=== PATIENT | male | born 1955 | race Two or more races ===

== ENCOUNTER 2018-07-05 02:54 | Inpatient (IN) | payer MEDICARE, MEDICAID ==
[2018-07-05] VITALS (23 sets, daily range): BP systolic 81–145; BP diastolic 48–67
[~2018-07-05] VITALS: Ht 165.1 cm; Wt 106.5 kg
[2018-07-05 03:37] LABS: Basophils # (auto) 0.1 uL; Eosinophils # (auto) 0.3 uL; Monocytes # (auto) 0.4 uL; Neutrophils # (auto) 3.3 uL; Nucleated Red Blood Cells % 0.1 %; White Blood Cell 5.9 10^3/uL (4.4-10.8)
[2018-07-05 03:39] LABS: Basophils % (auto) 1.3 % (0.0-2.0); Eosinophils % (auto) 4.8 % (0.0-7.0); Hematocrit 35.9 % (41.0-53.0); Hemoglobin 11.1 g/dL (13.5-17.5); Lymphocytes # (auto) 1.9 uL; Lymphocytes % (auto) 31.7 % (10.0-50.0); Mean Corpuscular Hgb Conc. 30.9 g/dL (32.0-36.0); Mean Corpuscular Volume 71.2 fL (80.0-100.0); Monocytes % (auto) 6.7 % (0.0-12.0); Neutrophils % (auto) 55.5 % (37.0-80.0); Platelet Count (auto) 179 10^3/uL (140-450); Red Blood Cells 5.04 10^6/uL (4.5-5.90); Red Cell Distribution Width 18.6 % (11.8-14.3)
[2018-07-05] MEDS ORDERED: LORazepam 2MG/ML-1ML VIAL ONE ×2 (03:41→06:26)
[2018-07-05 03:55] LABS: Albumin 3.7 g/dL (3.4-5.0); BUN/Creatinine Ratio 22.5; Calcium 9.2 mg/dL (8.5-10.1); Potassium 3.1 mmol/L (3.5-5.1)
[2018-07-05 03:56] LABS: Blood Alcohol < 3.0 mg/dL (0-5); INR 1.06 (0.9-1.15); Partial Thromboplastin Time 28.5 sec (23.78-33.04); Prothrombin Time 11.3 sec (9.27-12.13)
[2018-07-05 03:58] LABS: Bilirubin, Total 0.8 mg/dL (0.2-1.0); Total Protein 8.4 g/dL (6.4-8.2)
[2018-07-05] MEDS ORDERED: LORazepam 2MG/ML-1ML VIAL IV ONE ×2 (04:15→06:45)
[2018-07-05] MEDS ORDERED: HALOPERIDOL LACTATE 5 MG/ML INJ VIAL ONE (04:32)
[2018-07-05] MEDS ORDERED: diphenhdrAMINE HCL 50 MG/1 ML VL ONE (04:40)
[2018-07-05 04:43] LABS: Lactic Acid w/Reflex 9.1 mmol/L (0.4-2.0)
[2018-07-05] MEDS ORDERED: diphenhdrAMINE HCL 50 MG/1 ML VL IV ONE (04:45)
[2018-07-05] MEDS ORDERED: HALOPERIDOL LACTATE 5 MG/ML INJ VIAL IM ONE ×2 (04:45→05:45)
[2018-07-05 05:58] LABS: Urine Bacteria NONE SEEN /hpf (None Seen); Urine Blood Negative /uL (Negative); Urine Specific Gravity 1.015 (1.001-1.035); Urine WBC 1 /hpf (0 - 3)
[2018-07-05] MEDS ORDERED: LEVOFLOXACIN 750MG 150 ML IV ONE (06:15)
[2018-07-05] MEDS ORDERED: SODIUM BICARBONATE 8.4 % INJ 50ML VIAL IV ONE (06:15)
[2018-07-05] MEDS ORDERED: SODIUM CHLORIDE 0.9% 3,000 ML IV ONE (06:15)
[2018-07-05 06:21] LABS: Alcohol, Urine < 3.0 mg/dL (0-5); Amphetamine Screen, Urine NEGATIVE (NEGATIVE); Barbiturate Scree,Urine NEGATIVE (NEGATIVE); Benzodiazephine Screen, Urine NEGATIVE (NEGATIVE); Cannabinoid Screen, Urine NEGATIVE (NEGATIVE); Cocaine Screen, Urine NEGATIVE (NEGATIVE); Opiate Scree,Urine NEGATIVE (NEGATIVE); Phencyclidine Screen, Urine NEGATIVE (NEGATIVE)
[2018-07-05] MEDS ORDERED: SODIUM BICARBONATE 8.4% INJ 50ML SYRINGE ONE ×2 (06:26→06:27)
[2018-07-05] MEDS ORDERED: SUCCINYLCHOLINE CHLORIDE 20 MG/ML 10ML VIAL IV ONE (07:17)
[2018-07-05] MEDS ORDERED: ETOMIDATE (2MG/ML) 20ML VIAL IV ONE (07:18)
[2018-07-05] MEDS ORDERED: MIDAZOLAM DRIP 50 mg/50mL 50 ML IV ONE (07:18)
[2018-07-05] MEDS: ETOMIDATE (2MG/ML) 20ML VIAL IV ONE ×2 (07:24→08:05)
[2018-07-05] MEDS: SUCCINYLCHOLINE CHLORIDE 20 MG/ML 10ML VIAL IV ONE ×2 (07:24→08:05)
[2018-07-05] MEDS: MIDAZOLAM DRIP 50 mg/50mL 50 ML IV SCH ×3 (07:26→10:44)
[2018-07-05] MEDS ORDERED: PROPOFOL 100 ML IV ONE (07:32)
[2018-07-05] MEDS: PROPOFOL 100 ML IV SCH ×3 (07:36→10:44)
[2018-07-05] MEDS ORDERED: IOHEXOL 350 MG/ML 100ML IJ ONE (08:22)
[2018-07-05] MEDS ORDERED: DEXTROSE (50%) 50ML SYRG IV PRN (10:15)
[2018-07-05] MEDS ORDERED: VANCOMYCIN PER PHARMACY 0 MG IV SCH (10:15)
[2018-07-05] MEDS ORDERED: POTASSIUM CHL 20MEQ/100ML 100 ML IV ONE (10:15)
[2018-07-05] MEDS ORDERED: PIPERACILLIN-TAZOB 3.375GM 100 ML IV ONE (10:15)
[2018-07-05] MEDS ORDERED: MORPHINE SULFATE 4 MG/ML SYR/VIAL IV PRN (10:30)
[2018-07-05] MEDS ORDERED: ONDANSETRON HCL 4 MG/2 ML VIAL IV PRN (10:30)
[2018-07-05] MEDS ORDERED: NITROGLYCERIN 0.4 MG SL TAB SL PRN (10:30)
[2018-07-05 10:36] LABS: Albumin 2.9 g/dL (3.4-5.0); BUN/Creatinine Ratio 22.8; Bilirubin, Total 0.9 mg/dL (0.2-1.0); Calcium 8.3 mg/dL (8.5-10.1); Total Protein 6.4 g/dL (6.4-8.2)
[2018-07-05 10:49] LABS: Potassium 2.6 mmol/L (3.5-5.1)
[2018-07-05] MEDS: POTASSIUM CHL 20MEQ/100ML 100 ML IV SCH ×3 (10:54→15:47)
[2018-07-05] MEDS: InsuLIN REG 1unit/0.01ml Soln (100units/ml) SC SCH ×2 (12:00→18:17)
[2018-07-05] MEDS ORDERED: LACTULOSE 20Gm/30ML SOLN PR SCH (12:00)
[2018-07-05] MEDS: ENOXAPARIN SOD 40 MG/0.4 ML SYRINGE SC SCH (12:13)
[2018-07-05] MEDS: ALBUTEROL SULF 2.5 MG/0.5ML(0.5%) NEB SOLN NEB SCH ×2 (12:26→18:15)
[2018-07-05] MEDS: IPRATROPIUM BROM 0.5 MG/2.5ML INH SOL NEB SCH ×2 (12:26→18:15)
[2018-07-05] MEDS: ACCU-CHEK COMFORT CURVE STRIP VI SCH ×2 (12:37→18:17)
[2018-07-05] MEDS: VANCOMYCIN 750 MG in D5W 5% 250 ML IV SCH (13:44)
[2018-07-05 13:48] LABS: Lactic Acid w/Reflex 2.4 mmol/L (0.4-2.0)
[2018-07-05] MEDS ORDERED: LACTULOSE 20Gm/30ML SOLN ONE (13:55)
[2018-07-05] MEDS: LACTULOSE 20Gm/30ML SOLN PO SCH (18:17)
[2018-07-05] MEDS: PIPERACILLIN-TAZOB 3.375GM 100 ML IV SCH (18:23)
[2018-07-05] MEDS ORDERED: MECL-87 PO (22:52)
[2018-07-05] MEDS ORDERED: PANT40TA2 PO (22:52)
[2018-07-05] MEDS ORDERED: CARV3.1240 PO (22:52)
[2018-07-05] MEDS ORDERED: AMLO5TAB13 PO (22:52)
[2018-07-05] MEDS ORDERED: SIMV10TA84 PO (22:52)
[2018-07-05] MEDS ORDERED: FURO40TA PO (22:52)
[2018-07-05] MEDS ORDERED: LOSA-49 PO (22:52)
[2018-07-05] MEDS ORDERED: METF-371 PO (22:52)
[2018-07-05] MEDS ORDERED: GABA100C9 PO (22:52)
[2018-07-05] MEDS ORDERED: HYDR25TA4 PO (22:52)
[2018-07-06] VITALS (86 sets, daily range): BP systolic 90–152; BP diastolic 48–98
[2018-07-06] MEDS: IPRATROPIUM BROM 0.5 MG/2.5ML INH SOL NEB SCH ×4 (00:08→18:00)
[2018-07-06] MEDS: ALBUTEROL SULF 2.5 MG/0.5ML(0.5%) NEB SOLN NEB SCH ×4 (00:08→18:00)
[2018-07-06] MEDS: LACTULOSE 20Gm/30ML SOLN PO SCH ×5 (00:29→23:50)
[2018-07-06] MEDS: PIPERACILLIN-TAZOB 3.375GM 100 ML IV SCH ×5 (00:29→23:49)
[2018-07-06] MEDS: ACCU-CHEK COMFORT CURVE STRIP VI SCH ×5 (00:30→23:49)
[2018-07-06] MEDS: VANCOMYCIN 750 MG in D5W 5% 250 ML IV SCH ×2 (00:50→14:13)
[2018-07-06] MEDS: MIDAZOLAM DRIP 50 mg/50mL 50 ML IV SCH ×5 (00:50→21:30)
[2018-07-06] MEDS: PROPOFOL 100 ML IV SCH ×2 (00:51→17:17)
[2018-07-06 04:46] LABS: Basophils # (auto) 0 uL; Basophils % (auto) 0.9 % (0.0-2.0); Eosinophils # (auto) 0.3 uL; Monocytes # (auto) 0.4 uL; Neutrophils # (auto) 2.4 uL; Neutrophils % (auto) 56.9 % (37.0-80.0); White Blood Cell 4.2 10^3/uL (4.4-10.8)
[2018-07-06 04:48] LABS: Hematocrit 27.9 % (41.0-53.0); Hemoglobin 9.1 g/dL (13.5-17.5); Lymphocytes % (auto) 24.4 % (10.0-50.0); Mean Corpuscular Hemoglobin 23.3 pg (28.0-32.0); Mean Corpuscular Hgb Conc. 32.7 g/dL (32.0-36.0); Mean Corpuscular Volume 71.4 fL (80.0-100.0); Monocytes % (auto) 10.8 % (0.0-12.0); Platelet Count (auto) 110 10^3/uL (140-450); Red Blood Cells 3.91 10^6/uL (4.5-5.90); Red Cell Distribution Width 18.6 % (11.8-14.3)
[2018-07-06 05:24] LABS: Anion Gap 8 (5-15); Blood Urea Nitrogen 17 mg/dL (7-18); Carbon Dioxide 28 mmol/L (21-32); Chloride 109 mmol/L (98-107); Glucose 170 mg/dL (74-106); Sodium 145 mmol/L (136-145)
[2018-07-06 05:25] LABS: Alanine Aminotransferase 26 U/L (16-61); Albumin 2.7 g/dL (3.4-5.0); Alkaline Phosphatase 56 U/L (45-117); Aspartate Aminotransferase 22 U/L (15-37); BUN/Creatinine Ratio 16.7; Calcium 7.4 mg/dL (8.5-10.1); GFR African American 95 mL/min; GFR Non-African American 79 mL/min; Total Protein 6.2 g/dL (6.4-8.2)
[2018-07-06 05:27] LABS: Potassium 2.8 mmol/L (3.5-5.1)
[2018-07-06] MEDS: InsuLIN REG 1unit/0.01ml Soln (100units/ml) SC SCH ×5 (05:54→23:49)
[2018-07-06] MEDS: POTASSIUM CHL 20MEQ/100ML 100 ML IV SCH ×4 (07:41→11:17)
[2018-07-06] MEDS: ENOXAPARIN SOD 40 MG/0.4 ML SYRINGE SC SCH (09:40)
[2018-07-06] MEDS ORDERED: THIAMINE INJ 100 MG, MULTIPLE VITAMIN 10 ML, FOLIC ACID 1 MG, MAGNESIUM SULF SDV 50% 8 ... IV SCH ×5 (12:15)
[2018-07-07] VITALS (104 sets, daily range): BP systolic 93–175; BP diastolic 48–100
[2018-07-07] MEDS: IPRATROPIUM BROM 0.5 MG/2.5ML INH SOL NEB SCH ×4 (00:18→18:52)
[2018-07-07] MEDS: ALBUTEROL SULF 2.5 MG/0.5ML(0.5%) NEB SOLN NEB SCH ×4 (00:18→18:52)
[2018-07-07] MEDS: PROPOFOL 100 ML IV SCH ×3 (00:40→21:53)
[2018-07-07 00:46] LABS: Folate (Folic Acid) 14.92 ng/mL (5.38-24)
[2018-07-07] MEDS: VANCOMYCIN 750 MG in D5W 5% 250 ML IV SCH (01:35)
[2018-07-07 03:52] LABS: Eosinophils # (auto) 0.4 uL; Lymphocytes # (auto) 1.4 uL; Mean Corpuscular Hemoglobin 22.3 pg (28.0-32.0); Monocytes # (auto) 0.4 uL; Platelet Count (auto) 110 10^3/uL (140-450)
[2018-07-07 03:55] LABS: Basophils # (auto) 0 uL; Basophils % (auto) 1.1 % (0.0-2.0); Eosinophils % (auto) 9.2 % (0.0-7.0); Hematocrit 28.9 % (41.0-53.0); Lymphocytes % (auto) 33.6 % (10.0-50.0); Mean Corpuscular Volume 71.9 fL (80.0-100.0); Monocytes % (auto) 9.4 % (0.0-12.0); Neutrophils % (auto) 46.7 % (37.0-80.0); Red Blood Cells 4.02 10^6/uL (4.5-5.90); Red Cell Distribution Width 18.6 % (11.8-14.3); White Blood Cell 4.3 10^3/uL (4.4-10.8)
[2018-07-07 03:56] LABS: Mean Corpuscular Hgb Conc. 31.1 g/dL (32.0-36.0)
[2018-07-07 04:09] LABS: Albumin 2.5 g/dL (3.4-5.0); Calcium 7.2 mg/dL (8.5-10.1)
[2018-07-07 04:13] LABS: Magnesium 1.8 mg/dL (1.6-2.6)
[2018-07-07 04:15] LABS: Bilirubin, Total 0.9 mg/dL (0.2-1.0); Total Protein 6.2 g/dL (6.4-8.2)
[2018-07-07] MEDS: PIPERACILLIN-TAZOB 3.375GM 100 ML IV SCH ×3 (06:34→18:20)
[2018-07-07] MEDS: InsuLIN REG 1unit/0.01ml Soln (100units/ml) SC SCH ×4 (06:35→23:43)
[2018-07-07] MEDS: ACCU-CHEK COMFORT CURVE STRIP VI SCH ×4 (06:35→23:42)
[2018-07-07] MEDS: LACTULOSE 20Gm/30ML SOLN PO SCH ×4 (06:37→23:53)
[2018-07-07] MEDS ORDERED: POTASSIUM CHL 20MEQ/100ML 100 ML IV ONE (07:30)
[2018-07-07] MEDS: ENOXAPARIN SOD 40 MG/0.4 ML SYRINGE SC SCH (09:42)
[2018-07-07] MEDS: FOLIC ACID 1 MG in D5W 5% 50 ML IV SCH (09:42)
[2018-07-07] MEDS: THIAMINE 100mg/ml INJ (200mg/2ml VIAL) IV SCH (09:42)
[2018-07-07] MEDS ORDERED: POTASSIUM CHL 20MEQ/100ML 100 ML IV SCH ×3 (10:00→15:00)
[2018-07-07] MEDS: VANCOMYCIN 1GM/250ML 250 ML IV SCH ×2 (11:45→17:06)
[2018-07-07] MEDS: MIDAZOLAM DRIP 50 mg/50mL 50 ML IV SCH ×2 (14:29→21:52)
[2018-07-08] VITALS (103 sets, daily range): BP systolic 97–140; BP diastolic 47–82
[2018-07-08] MEDS: IPRATROPIUM BROM 0.5 MG/2.5ML INH SOL NEB SCH ×4 (00:05→18:33)
[2018-07-08] MEDS: ALBUTEROL SULF 2.5 MG/0.5ML(0.5%) NEB SOLN NEB SCH ×4 (00:05→18:33)
[2018-07-08] MEDS: VANCOMYCIN 1GM/250ML 250 ML IV SCH ×3 (01:50→17:48)
[2018-07-08 04:12] LABS: Eosinophils # (auto) 0.5 uL; Neutrophils # (auto) 2.6 uL; Nucleated Red Blood Cells % 0.1 %; Platelet Count (auto) 114 10^3/uL (140-450); White Blood Cell 4.5 10^3/uL (4.4-10.8)
[2018-07-08 04:14] LABS: Basophils # (auto) 0 uL; Eosinophils % (auto) 11.1 % (0.0-7.0); Hematocrit 28.2 % (41.0-53.0); Hemoglobin 8.9 g/dL (13.5-17.5); Lymphocytes % (auto) 22.4 % (10.0-50.0); Mean Corpuscular Hgb Conc. 31.6 g/dL (32.0-36.0); Mean Corpuscular Volume 72.4 fL (80.0-100.0); Monocytes # (auto) 0.4 uL; Monocytes % (auto) 8.1 % (0.0-12.0); Neutrophils % (auto) 57.4 % (37.0-80.0); Red Cell Distribution Width 18.8 % (11.8-14.3)
[2018-07-08 04:16] LABS: Mean Corpuscular Hemoglobin 23.1 pg (28.0-32.0)
[2018-07-08 04:22] LABS: Albumin 2.4 g/dL (3.4-5.0); BUN/Creatinine Ratio 9.2; Calcium 7.1 mg/dL (8.5-10.1); Potassium 3.7 mmol/L (3.5-5.1)
[2018-07-08 04:25] LABS: Bilirubin, Total 0.7 mg/dL (0.2-1.0); Total Protein 6.1 g/dL (6.4-8.2)
[2018-07-08] MEDS: PROPOFOL 100 ML IV SCH ×2 (05:07→17:26)
[2018-07-08] MEDS: ACCU-CHEK COMFORT CURVE STRIP VI SCH ×3 (05:27→17:58)
[2018-07-08] MEDS: PIPERACILLIN-TAZOB 3.375GM 100 ML IV SCH ×5 (05:30→23:54)
[2018-07-08] MEDS: InsuLIN REG 1unit/0.01ml Soln (100units/ml) SC SCH ×3 (05:30→17:58)
[2018-07-08] MEDS: LACTULOSE 20Gm/30ML SOLN PO SCH (06:00)
[2018-07-08] MEDS: DEXMEDETOMIDINE HCL 400 MCG in D5W 5% 96 ML IV SCH ×2 (09:15→21:10)
[2018-07-08] MEDS: THIAMINE 100mg/ml INJ (200mg/2ml VIAL) IV SCH (10:11)
[2018-07-08] MEDS: FOLIC ACID 1 MG in D5W 5% 50 ML IV SCH (10:11)
[2018-07-08] MEDS: ENOXAPARIN SOD 40 MG/0.4 ML SYRINGE SC SCH (10:12)
[2018-07-08] MEDS ORDERED: Glucerna 1.2 Cal 1Liter BOTTLE GT SCH (13:15)
[2018-07-09] VITALS (99 sets, daily range): BP systolic 94–148; BP diastolic 49–102
[2018-07-09] MEDS: InsuLIN REG 1unit/0.01ml Soln (100units/ml) SC SCH ×5 (00:28→23:48)
[2018-07-09] MEDS: ACCU-CHEK COMFORT CURVE STRIP VI SCH ×5 (00:28→23:45)
[2018-07-09] MEDS: IPRATROPIUM BROM 0.5 MG/2.5ML INH SOL NEB SCH ×4 (00:32→19:07)
[2018-07-09] MEDS: ALBUTEROL SULF 2.5 MG/0.5ML(0.5%) NEB SOLN NEB SCH ×4 (00:32→19:07)
[2018-07-09] MEDS: PROPOFOL 100 ML IV SCH ×4 (00:56→19:51)
[2018-07-09 01:04] LABS: Basophils # (auto) 0 uL; Basophils % (auto) 0.9 % (0.0-2.0); Eosinophils # (auto) 0.6 uL; Eosinophils % (auto) 11.6 % (0.0-7.0); Hematocrit 30.3 % (41.0-53.0); Hemoglobin 9.3 g/dL (13.5-17.5); Lymphocytes # (auto) 1.2 uL; Lymphocytes % (auto) 23.9 % (10.0-50.0); Mean Corpuscular Hemoglobin 22.4 pg (28.0-32.0); Mean Corpuscular Hgb Conc. 30.7 g/dL (32.0-36.0); Mean Corpuscular Volume 72.8 fL (80.0-100.0); Monocytes # (auto) 0.4 uL; Monocytes % (auto) 8.7 % (0.0-12.0); Neutrophils # (auto) 2.7 uL; Neutrophils % (auto) 54.9 % (37.0-80.0); Nucleated Red Blood Cells % 0.1 %; Platelet Count (auto) 112 10^3/uL (140-450); Red Blood Cells 4.16 10^6/uL (4.5-5.90); Red Cell Distribution Width 18.6 % (11.8-14.3); White Blood Cell 4.8 10^3/uL (4.4-10.8)
[2018-07-09 01:19] LABS: Albumin 2.6 g/dL (3.4-5.0); Potassium 3.9 mmol/L (3.5-5.1)
[2018-07-09 01:22] LABS: BUN/Creatinine Ratio 7.7
[2018-07-09 01:24] LABS: Bilirubin, Total 0.7 mg/dL (0.2-1.0); Total Protein 6.2 g/dL (6.4-8.2)
[2018-07-09] MEDS: VANCOMYCIN 1GM/250ML 250 ML IV SCH ×3 (02:29→17:43)
[2018-07-09] MEDS: PIPERACILLIN-TAZOB 3.375GM 100 ML IV SCH ×4 (06:23→23:44)
[2018-07-09] MEDS: THIAMINE 100mg/ml INJ (200mg/2ml VIAL) IV SCH (09:16)
[2018-07-09] MEDS: ENOXAPARIN SOD 40 MG/0.4 ML SYRINGE SC SCH (09:16)
[2018-07-09] MEDS: FOLIC ACID 1 MG in D5W 5% 50 ML IV SCH (09:30)
[2018-07-09] MEDS: MIDAZOLAM DRIP 50 mg/50mL 50 ML IV SCH ×3 (10:12→23:44)
[2018-07-09] MEDS: LACTULOSE 20Gm/30ML SOLN PO SCH ×3 (15:01→23:45)
[2018-07-09] MEDS: DEXMEDETOMIDINE HCL 400 MCG in D5W 5% 96 ML IV SCH (20:39)
[2018-07-10] VITALS (102 sets, daily range): BP systolic 91–127; BP diastolic 44–77
[2018-07-10] MEDS: IPRATROPIUM BROM 0.5 MG/2.5ML INH SOL NEB SCH ×4 (00:32→18:42)
[2018-07-10] MEDS: ALBUTEROL SULF 2.5 MG/0.5ML(0.5%) NEB SOLN NEB SCH ×4 (00:32→18:42)
[2018-07-10] MEDS: PROPOFOL 100 ML IV SCH ×3 (01:33→11:25)
[2018-07-10] MEDS: VANCOMYCIN 1GM/250ML 250 ML IV SCH ×3 (01:33→18:00)
[2018-07-10] MEDS: MORPHINE SULFATE 4 MG/ML SYR/VIAL IV PRN ×2 (05:25→20:08)
[2018-07-10 05:27] LABS: Basophils # (auto) 0.1 uL; Eosinophils # (auto) 0.5 uL; Hemoglobin 9.1 g/dL (13.5-17.5); Monocytes # (auto) 0.4 uL; Neutrophils # (auto) 2.4 uL; Nucleated Red Blood Cells % 0.2 %
[2018-07-10 05:31] LABS: Basophils % (auto) 1.3 % (0.0-2.0); Eosinophils % (auto) 12.4 % (0.0-7.0); Hematocrit 28.1 % (41.0-53.0); Lymphocytes # (auto) 0.9 uL; Lymphocytes % (auto) 20.6 % (10.0-50.0); Mean Corpuscular Hemoglobin 23.3 pg (28.0-32.0); Mean Corpuscular Hgb Conc. 32.2 g/dL (32.0-36.0); Mean Corpuscular Volume 72.3 fL (80.0-100.0); Monocytes % (auto) 9.6 % (0.0-12.0); Neutrophils % (auto) 56.1 % (37.0-80.0); Platelet Count (auto) 130 10^3/uL (140-450); Red Blood Cells 3.89 10^6/uL (4.5-5.90); Red Cell Distribution Width 19.1 % (11.8-14.3); White Blood Cell 4.3 10^3/uL (4.4-10.8)
[2018-07-10 05:43] LABS: Albumin 2.5 g/dL (3.4-5.0); BUN/Creatinine Ratio 8.2; Calcium 7.6 mg/dL (8.5-10.1); Potassium 3.7 mmol/L (3.5-5.1)
[2018-07-10] MEDS: ACCU-CHEK COMFORT CURVE STRIP VI SCH ×4 (05:43→23:40)
[2018-07-10] MEDS: LACTULOSE 20Gm/30ML SOLN PO SCH ×4 (05:43→23:39)
[2018-07-10] MEDS: PIPERACILLIN-TAZOB 3.375GM 100 ML IV SCH ×4 (05:47→23:39)
[2018-07-10] MEDS: InsuLIN REG 1unit/0.01ml Soln (100units/ml) SC SCH ×4 (05:47→23:40)
[2018-07-10 05:50] LABS: Bilirubin, Total 0.6 mg/dL (0.2-1.0); Total Protein 6.5 g/dL (6.4-8.2)
[2018-07-10] MEDS: DEXMEDETOMIDINE HCL 400 MCG in D5W 5% 96 ML IV SCH ×2 (09:57→19:39)
[2018-07-10] MEDS: THIAMINE 100mg/ml INJ (200mg/2ml VIAL) IV SCH (10:03)
[2018-07-10] MEDS: ENOXAPARIN SOD 40 MG/0.4 ML SYRINGE SC SCH (10:22)
[2018-07-10] MEDS: FOLIC ACID 1 MG in D5W 5% 50 ML IV SCH (11:27)
[2018-07-11] VITALS (99 sets, daily range): BP systolic 93–169; BP diastolic 48–97
[2018-07-11] MEDS: IPRATROPIUM BROM 0.5 MG/2.5ML INH SOL NEB SCH ×4 (00:45→18:50)
[2018-07-11] MEDS: ALBUTEROL SULF 2.5 MG/0.5ML(0.5%) NEB SOLN NEB SCH ×4 (00:45→18:50)
[2018-07-11] MEDS: PROPOFOL 100 ML IV SCH ×3 (01:15→23:35)
[2018-07-11] MEDS: VANCOMYCIN 1,250 MG in D5W 5% 250 ML IV SCH ×2 (02:00→14:19)
[2018-07-11 04:23] LABS: Eosinophils # (auto) 0.5 uL; Hemoglobin 9.1 g/dL (13.5-17.5); Mean Corpuscular Volume 72.3 fL (80.0-100.0); Monocytes # (auto) 0.4 uL; Neutrophils # (auto) 1.9 uL
[2018-07-11 04:25] LABS: Basophils # (auto) 0 uL; Basophils % (auto) 1.2 % (0.0-2.0); Eosinophils % (auto) 13.1 % (0.0-7.0); Hematocrit 28.7 % (41.0-53.0); Lymphocytes # (auto) 1.1 uL; Lymphocytes % (auto) 28.6 % (10.0-50.0); Mean Corpuscular Hgb Conc. 31.7 g/dL (32.0-36.0); Monocytes % (auto) 10.1 % (0.0-12.0); Nucleated Red Blood Cells % 0.2 %; Platelet Count (auto) 125 10^3/uL (140-450); Red Blood Cells 3.97 10^6/uL (4.5-5.90)
[2018-07-11 04:31] LABS: Mean Corpuscular Hemoglobin 23.3 pg (28.0-32.0)
[2018-07-11 04:36] LABS: Potassium 3.6 mmol/L (3.5-5.1)
[2018-07-11 04:37] LABS: Albumin 2.4 g/dL (3.4-5.0); BUN/Creatinine Ratio 10.5; Calcium 7.6 mg/dL (8.5-10.1)
[2018-07-11 04:38] LABS: Bilirubin, Total 0.6 mg/dL (0.2-1.0); Total Protein 6.5 g/dL (6.4-8.2)
[2018-07-11] MEDS: LACTULOSE 20Gm/30ML SOLN PO SCH ×3 (05:35→17:40)
[2018-07-11] MEDS: MORPHINE SULFATE 4 MG/ML SYR/VIAL IV PRN ×3 (05:35→21:35)
[2018-07-11] MEDS: ACCU-CHEK COMFORT CURVE STRIP VI SCH ×3 (05:35→17:53)
[2018-07-11] MEDS: PIPERACILLIN-TAZOB 3.375GM 100 ML IV SCH ×3 (05:35→17:40)
[2018-07-11] MEDS: InsuLIN REG 1unit/0.01ml Soln (100units/ml) SC SCH ×3 (05:42→17:57)
[2018-07-11] MEDS: DEXMEDETOMIDINE HCL 400 MCG in D5W 5% 96 ML IV SCH (06:37)
[2018-07-11] MEDS: MIDAZOLAM DRIP 50 mg/50mL 50 ML IV SCH (10:12)
[2018-07-11] MEDS ORDERED: IOHEXOL 350 MG/ML 100ML IJ ONE (10:39)
[2018-07-11] MEDS: THIAMINE 100mg/ml INJ (200mg/2ml VIAL) IV SCH (11:27)
[2018-07-11] MEDS: FOLIC ACID 1 MG in D5W 5% 50 ML IV SCH (11:27)
[2018-07-11] MEDS: ENOXAPARIN SOD 40 MG/0.4 ML SYRINGE SC SCH (11:27)
[2018-07-11] MEDS ORDERED: FLEET ENEMA(ADULT) 135 ML PR ONE (12:45)
[2018-07-12] VITALS (99 sets, daily range): BP systolic 92–174; BP diastolic 40–114
[2018-07-12] MEDS: ALBUTEROL SULF 2.5 MG/0.5ML(0.5%) NEB SOLN NEB SCH ×4 (00:23→23:41)
[2018-07-12] MEDS: IPRATROPIUM BROM 0.5 MG/2.5ML INH SOL NEB SCH ×4 (00:23→23:41)
[2018-07-12 00:36] LABS: Basophils # (auto) 0.1 uL; Basophils % (auto) 1.3 % (0.0-2.0); Eosinophils # (auto) 0.6 uL; Hemoglobin 8.9 g/dL (13.5-17.5); Mean Corpuscular Volume 72.2 fL (80.0-100.0); Monocytes # (auto) 0.4 uL
[2018-07-12] MEDS: PIPERACILLIN-TAZOB 3.375GM 100 ML IV SCH ×5 (00:36→23:45)
[2018-07-12] MEDS: LACTULOSE 20Gm/30ML SOLN PO SCH ×3 (00:37→21:47)
[2018-07-12 00:38] LABS: Eosinophils % (auto) 12.2 % (0.0-7.0); Hematocrit 28.4 % (41.0-53.0); Lymphocytes # (auto) 0.9 uL; Lymphocytes % (auto) 19.6 % (10.0-50.0); Mean Corpuscular Hgb Conc. 31.4 g/dL (32.0-36.0); Monocytes % (auto) 8.2 % (0.0-12.0); Neutrophils # (auto) 2.8 uL; Neutrophils % (auto) 58.7 % (37.0-80.0); Nucleated Red Blood Cells % 0.1 %; Platelet Count (auto) 126 10^3/uL (140-450); Red Blood Cells 3.94 10^6/uL (4.5-5.90); Red Cell Distribution Width 19.3 % (11.8-14.3); White Blood Cell 4.8 10^3/uL (4.4-10.8)
[2018-07-12 00:39] LABS: Mean Corpuscular Hemoglobin 22.9 pg (28.0-32.0)
[2018-07-12 00:55] LABS: Albumin 2.4 g/dL (3.4-5.0); BUN/Creatinine Ratio 10.3; Calcium 7.4 mg/dL (8.5-10.1); Potassium 3.5 mmol/L (3.5-5.1)
[2018-07-12 00:58] LABS: Bilirubin, Total 0.6 mg/dL (0.2-1.0); Total Protein 6.3 g/dL (6.4-8.2)
[2018-07-12] MEDS: PROPOFOL 100 ML IV SCH ×6 (01:58→23:45)
[2018-07-12] MEDS: VANCOMYCIN 1,250 MG in D5W 5% 250 ML IV SCH ×2 (01:58→18:16)
[2018-07-12] MEDS: DEXMEDETOMIDINE HCL 400 MCG in D5W 5% 96 ML IV SCH (04:27)
[2018-07-12] MEDS: ACCU-CHEK COMFORT CURVE STRIP VI SCH ×5 (06:19→23:45)
[2018-07-12] MEDS: InsuLIN REG 1unit/0.01ml Soln (100units/ml) SC SCH ×4 (06:20→18:28)
[2018-07-12] MEDS: MIDAZOLAM DRIP 50 mg/50mL 50 ML IV SCH (10:12)
[2018-07-12] MEDS: PANTOPRAZOLE 40 MG/10 ML VIAL IV SCH (10:52)
[2018-07-12] MEDS: THIAMINE 100mg/ml INJ (200mg/2ml VIAL) IV SCH (10:52)
[2018-07-12] MEDS: ENOXAPARIN SOD 40 MG/0.4 ML SYRINGE SC SCH (10:53)
[2018-07-12] MEDS ORDERED: HALOPERIDOL LACTATE 5 MG/ML INJ VIAL IM PRN (11:00)
[2018-07-12] MEDS: FOLIC ACID 1 MG in D5W 5% 50 ML IV SCH (15:38)
[2018-07-12] MEDS: SIMETHICONE 40 MG/0.6 ML ORAL DROP PO SCH ×3 (15:47→21:48)
[2018-07-12] MEDS: methylPREDNISolone SOD SUCC 125 MG/2 ML VL IV SCH ×2 (15:47→21:48)
[2018-07-12] MEDS: MORPHINE SULFATE 4 MG/ML SYR/VIAL IV PRN (19:43)
[2018-07-13] VITALS (48 sets, daily range): BP systolic 105–141; BP diastolic 46–83
[2018-07-13] MEDS: InsuLIN REG 1unit/0.01ml Soln (100units/ml) SC SCH ×5 (00:01→23:48)
[2018-07-13] MEDS: VANCOMYCIN 1,250 MG in D5W 5% 250 ML IV SCH ×2 (05:08→18:25)
[2018-07-13] MEDS: PIPERACILLIN-TAZOB 3.375GM 100 ML IV SCH ×4 (05:49→23:48)
[2018-07-13] MEDS: methylPREDNISolone SOD SUCC 125 MG/2 ML VL IV SCH ×3 (05:50→22:12)
[2018-07-13] MEDS: SIMETHICONE 40 MG/0.6 ML ORAL DROP PO SCH ×4 (05:51→22:12)
[2018-07-13] MEDS: ACCU-CHEK COMFORT CURVE STRIP VI SCH ×4 (05:51→23:48)
[2018-07-13 06:07] LABS: Basophils # (auto) 0 uL; Eosinophils # (auto) 0 uL; Eosinophils % (auto) 0.1 % (0.0-7.0); Hemoglobin 9.1 g/dL (13.5-17.5); Lymphocytes # (auto) 0.5 uL; Monocytes # (auto) 0.1 uL; Neutrophils # (auto) 2.6 uL; White Blood Cell 3.2 10^3/uL (4.4-10.8)
[2018-07-13 06:11] LABS: Basophils % (auto) 0.4 % (0.0-2.0); Hematocrit 28.3 % (41.0-53.0); Lymphocytes % (auto) 15.4 % (10.0-50.0); Mean Corpuscular Hemoglobin 23.2 pg (28.0-32.0); Mean Corpuscular Hgb Conc. 32.1 g/dL (32.0-36.0); Mean Corpuscular Volume 72.4 fL (80.0-100.0); Monocytes % (auto) 2.1 % (0.0-12.0); Nucleated Red Blood Cells % 0.3 %; Platelet Count (auto) 127 10^3/uL (140-450); Red Blood Cells 3.91 10^6/uL (4.5-5.90); Red Cell Distribution Width 19.2 % (11.8-14.3)
[2018-07-13 06:26] LABS: Albumin 2.5 g/dL (3.4-5.0); BUN/Creatinine Ratio 12.4; Calcium 7.7 mg/dL (8.5-10.1); Potassium 3.9 mmol/L (3.5-5.1)
[2018-07-13 06:29] LABS: Bilirubin, Total 0.6 mg/dL (0.2-1.0); Total Protein 6.8 g/dL (6.4-8.2)
[2018-07-13] MEDS: IPRATROPIUM BROM 0.5 MG/2.5ML INH SOL NEB SCH ×3 (07:15→18:56)
[2018-07-13] MEDS: ALBUTEROL SULF 2.5 MG/0.5ML(0.5%) NEB SOLN NEB SCH ×3 (07:16→18:56)
[2018-07-13] MEDS: PROPOFOL 100 ML IV SCH ×3 (08:57→18:07)
[2018-07-13] MEDS: MIDAZOLAM DRIP 50 mg/50mL 50 ML IV SCH (10:12)
[2018-07-13] MEDS: PANTOPRAZOLE 40 MG/10 ML VIAL IV SCH (11:35)
[2018-07-13] MEDS: THIAMINE 100mg/ml INJ (200mg/2ml VIAL) IV SCH (11:35)
[2018-07-13] MEDS: ENOXAPARIN SOD 40 MG/0.4 ML SYRINGE SC SCH (11:35)
[2018-07-13] MEDS: FOLIC ACID 1 MG in D5W 5% 50 ML IV SCH (11:35)
[2018-07-13] MEDS: LACTULOSE 20Gm/30ML SOLN PO SCH ×2 (11:35→22:00)
[2018-07-13] MEDS: DEXMEDETOMIDINE HCL 400 MCG in D5W 5% 96 ML IV SCH (12:30)
[2018-07-13] MEDS: MORPHINE SULFATE 4 MG/ML SYR/VIAL IV PRN (20:52)
[2018-07-13] MEDS: HALOPERIDOL LACTATE 5 MG/ML INJ VIAL IM SCH (22:00)
[2018-07-14] VITALS (23 sets, daily range): BP systolic 109–151; BP diastolic 54–85
[2018-07-14] MEDS: IPRATROPIUM BROM 0.5 MG/2.5ML INH SOL NEB SCH ×4 (00:39→19:08)
[2018-07-14] MEDS: ALBUTEROL SULF 2.5 MG/0.5ML(0.5%) NEB SOLN NEB SCH ×4 (00:39→19:08)
[2018-07-14] MEDS: VANCOMYCIN 1,250 MG in D5W 5% 250 ML IV SCH ×2 (04:41→16:59)
[2018-07-14] MEDS: ACCU-CHEK COMFORT CURVE STRIP VI SCH ×3 (05:33→18:00)
[2018-07-14] MEDS: methylPREDNISolone SOD SUCC 125 MG/2 ML VL IV SCH ×3 (05:33→21:44)
[2018-07-14] MEDS: PIPERACILLIN-TAZOB 3.375GM 100 ML IV SCH ×3 (05:33→19:48)
[2018-07-14] MEDS: SIMETHICONE 40 MG/0.6 ML ORAL DROP PO SCH ×4 (05:33→21:45)
[2018-07-14] MEDS: InsuLIN REG 1unit/0.01ml Soln (100units/ml) SC SCH ×3 (05:36→18:00)
[2018-07-14 06:43] LABS: Basophils # (auto) 0 uL; Eosinophils # (auto) 0 uL; Hematocrit 27.6 % (41.0-53.0); Hemoglobin 8.8 g/dL (13.5-17.5); Lymphocytes # (auto) 0.4 uL; Mean Corpuscular Hemoglobin 23.2 pg (28.0-32.0); Monocytes # (auto) 0.1 uL; Neutrophils # (auto) 3.8 uL
[2018-07-14 06:45] LABS: Basophils % (auto) 0.3 % (0.0-2.0); Lymphocytes % (auto) 9.8 % (10.0-50.0); Mean Corpuscular Hgb Conc. 31.9 g/dL (32.0-36.0); Mean Corpuscular Volume 72.6 fL (80.0-100.0); Monocytes % (auto) 2.4 % (0.0-12.0); Neutrophils % (auto) 87.5 % (37.0-80.0); Nucleated Red Blood Cells % 0.1 %; Platelet Count (auto) 106 10^3/uL (140-450); Red Cell Distribution Width 19.5 % (11.8-14.3); White Blood Cell 4.3 10^3/uL (4.4-10.8)
[2018-07-14] MEDS: DEXMEDETOMIDINE HCL 400 MCG in D5W 5% 96 ML IV SCH (06:51)
[2018-07-14 06:53] LABS: Albumin 2.6 g/dL (3.4-5.0); BUN/Creatinine Ratio 16.2; Calcium 7.6 mg/dL (8.5-10.1)
[2018-07-14 07:02] LABS: Bilirubin, Total 0.7 mg/dL (0.2-1.0); Total Protein 6.8 g/dL (6.4-8.2)
[2018-07-14] MEDS: HALOPERIDOL LACTATE 5 MG/ML INJ VIAL IM SCH ×2 (10:00→21:35)
[2018-07-14] MEDS: MIDAZOLAM DRIP 50 mg/50mL 50 ML IV SCH (10:12)
[2018-07-14] MEDS: LACTULOSE 20Gm/30ML SOLN PO SCH ×2 (10:35→21:44)
[2018-07-14] MEDS: THIAMINE 100mg/ml INJ (200mg/2ml VIAL) IV SCH (10:37)
[2018-07-14] MEDS: PANTOPRAZOLE 40 MG/10 ML VIAL IV SCH (10:38)
[2018-07-14] MEDS: ENOXAPARIN SOD 40 MG/0.4 ML SYRINGE SC SCH (10:39)
[2018-07-14] MEDS: FOLIC ACID 1 MG in D5W 5% 50 ML IV SCH (10:39)
[2018-07-14] MEDS ORDERED: DEXTROSE (50%) 50ML SYRG IV PRN (19:00)
[2018-07-15] VITALS: BP 134/76
[2018-07-15] MEDS: ALBUTEROL SULF 2.5 MG/0.5ML(0.5%) NEB SOLN NEB SCH ×4 (00:01→18:25)
[2018-07-15] MEDS: IPRATROPIUM BROM 0.5 MG/2.5ML INH SOL NEB SCH ×4 (00:01→18:25)
[2018-07-15] MEDS: DEXMEDETOMIDINE HCL 400 MCG in D5W 5% 96 ML IV SCH ×2 (00:33→18:00)
[2018-07-15] MEDS: ACCU-CHEK COMFORT CURVE STRIP VI SCH ×5 (00:44→23:53)
[2018-07-15] MEDS: PIPERACILLIN-TAZOB 3.375GM 100 ML IV SCH ×5 (00:44→23:53)
[2018-07-15] MEDS: InsuLIN REG 1unit/0.01ml Soln (100units/ml) SC SCH ×5 (00:45→23:54)
[2018-07-15] MEDS: MORPHINE SULFATE 4 MG/ML SYR/VIAL IV PRN (03:34)
[2018-07-15 03:55] VITALS: BP 126/72
[2018-07-15 05:33] LABS: Basophils # (auto) 0 uL; Eosinophils # (auto) 0 uL; Hemoglobin 9.1 g/dL (13.5-17.5); Lymphocytes # (auto) 0.4 uL; Monocytes # (auto) 0.2 uL; Neutrophils # (auto) 3.6 uL; Nucleated Red Blood Cells % 0.2 %
[2018-07-15 05:37] LABS: Basophils % (auto) 0.1 % (0.0-2.0); Hematocrit 28.5 % (41.0-53.0); Mean Corpuscular Hemoglobin 23.3 pg (28.0-32.0); Mean Corpuscular Volume 72.9 fL (80.0-100.0); Monocytes % (auto) 5.3 % (0.0-12.0); Neutrophils % (auto) 84.6 % (37.0-80.0); Red Cell Distribution Width 19.8 % (11.8-14.3); White Blood Cell 4.2 10^3/uL (4.4-10.8)
[2018-07-15 05:40] LABS: Platelet Count (auto) 108 10^3/uL (140-450)
[2018-07-15 05:53] LABS: Albumin 2.6 g/dL (3.4-5.0); Calcium 7.8 mg/dL (8.5-10.1); Potassium 3.9 mmol/L (3.5-5.1)
[2018-07-15 05:56] LABS: BUN/Creatinine Ratio 20.6
[2018-07-15 06:11] LABS: Bilirubin, Total 0.7 mg/dL (0.2-1.0); Total Protein 6.9 g/dL (6.4-8.2)
[2018-07-15] MEDS: VANCOMYCIN 1,250 MG in D5W 5% 250 ML IV SCH ×2 (06:42→16:14)
[2018-07-15] MEDS: methylPREDNISolone SOD SUCC 125 MG/2 ML VL IV SCH (06:42)
[2018-07-15] MEDS: SIMETHICONE 40 MG/0.6 ML ORAL DROP PO SCH ×4 (06:43→21:58)
[2018-07-15 08:00] VITALS: BP 140/77
[2018-07-15] MEDS ORDERED: FUROSEMIDE 20 MG/2 ML VIAL IV ONE (08:30)
[2018-07-15] MEDS: MIDAZOLAM DRIP 50 mg/50mL 50 ML IV SCH (10:12)
[2018-07-15] MEDS: PROPOFOL 100 ML IV SCH (10:12)
[2018-07-15] MEDS: THIAMINE 100mg/ml INJ (200mg/2ml VIAL) IV SCH (11:22)
[2018-07-15] MEDS: methylPREDNISolone SOD SUCC 40 MG/ML VL IV SCH ×3 (11:22→21:57)
[2018-07-15] MEDS: LACTULOSE 20Gm/30ML SOLN PO SCH ×2 (11:23→21:57)
[2018-07-15] MEDS: FOLIC ACID 1 MG in D5W 5% 50 ML IV SCH (11:23)
[2018-07-15] MEDS: ENOXAPARIN SOD 40 MG/0.4 ML SYRINGE SC SCH (11:23)
[2018-07-15] MEDS: PANTOPRAZOLE 40 MG/10 ML VIAL IV SCH (11:23)
[2018-07-15 11:50] VITALS: BP 140/80
[2018-07-15] MEDS ORDERED: InsuLIN REG 1unit/0.01ml Soln (100units/ml) SC ONE (14:45)
[2018-07-15 15:50] VITALS: BP 143/86
[2018-07-15] MEDS: metFORMIN HYDROCHLORIDE 500 MG TAB PO SCH (17:59)
[2018-07-15 19:49] VITALS: BP 117/63
[2018-07-15] MEDS: INSULIN LANTUS (GLARGINE) 1 /0.01ml (100units/ml) SC SCH (21:59)
[2018-07-16] VITALS: BP 127/77
[2018-07-16] MEDS: IPRATROPIUM BROM 0.5 MG/2.5ML INH SOL NEB SCH ×4 (00:14→18:00)
[2018-07-16] MEDS: ALBUTEROL SULF 2.5 MG/0.5ML(0.5%) NEB SOLN NEB SCH ×4 (00:14→18:00)
[2018-07-16 04:00] VITALS: BP 129/76
[2018-07-16] MEDS: VANCOMYCIN 1,250 MG in D5W 5% 250 ML IV SCH ×2 (04:53→17:32)
[2018-07-16 05:24] LABS: Basophils # (auto) 0 uL; Eosinophils # (auto) 0 uL; Eosinophils % (auto) 0.1 % (0.0-7.0); Lymphocytes # (auto) 0.6 uL; Neutrophils # (auto) 4.4 uL; Nucleated Red Blood Cells % 0.1 %
[2018-07-16 05:25] LABS: Hematocrit 29.7 % (41.0-53.0); Hemoglobin 9.3 g/dL (13.5-17.5); Lymphocytes % (auto) 11.3 % (10.0-50.0); Mean Corpuscular Hemoglobin 22.9 pg (28.0-32.0); Mean Corpuscular Hgb Conc. 31.4 g/dL (32.0-36.0); Mean Corpuscular Volume 72.7 fL (80.0-100.0); Monocytes # (auto) 0.5 uL; Monocytes % (auto) 9.5 % (0.0-12.0); Neutrophils % (auto) 79.1 % (37.0-80.0); Platelet Count (auto) 112 10^3/uL (140-450); Red Blood Cells 4.08 10^6/uL (4.5-5.90); Red Cell Distribution Width 19.3 % (11.8-14.3); White Blood Cell 5.5 10^3/uL (4.4-10.8)
[2018-07-16 05:43] LABS: Albumin 2.8 g/dL (3.4-5.0); BUN/Creatinine Ratio 22.4; Calcium 7.5 mg/dL (8.5-10.1); Magnesium 2.4 mg/dL (1.6-2.6); Potassium 3.9 mmol/L (3.5-5.1)
[2018-07-16 05:45] LABS: Bilirubin, Total 0.6 mg/dL (0.2-1.0); Total Protein 6.7 g/dL (6.4-8.2)
[2018-07-16] MEDS: methylPREDNISolone SOD SUCC 40 MG/ML VL IV SCH ×3 (06:02→22:00)
[2018-07-16] MEDS: PIPERACILLIN-TAZOB 3.375GM 100 ML IV SCH ×3 (06:03→18:32)
[2018-07-16] MEDS: ACCU-CHEK COMFORT CURVE STRIP VI SCH ×3 (06:03→18:04)
[2018-07-16] MEDS: SIMETHICONE 40 MG/0.6 ML ORAL DROP PO SCH ×4 (06:03→22:00)
[2018-07-16] MEDS: InsuLIN REG 1unit/0.01ml Soln (100units/ml) SC SCH ×3 (06:04→18:18)
[2018-07-16] MEDS: metFORMIN HYDROCHLORIDE 500 MG TAB PO SCH ×2 (06:04→18:03)
[2018-07-16 08:00] VITALS: BP 137/86
[2018-07-16] MEDS: LACTULOSE 20Gm/30ML SOLN PO SCH ×2 (09:38→22:00)
[2018-07-16] MEDS: ENOXAPARIN SOD 40 MG/0.4 ML SYRINGE SC SCH (09:38)
[2018-07-16] MEDS: THIAMINE 100mg/ml INJ (200mg/2ml VIAL) IV SCH (09:38)
[2018-07-16] MEDS: PANTOPRAZOLE 40 MG/10 ML VIAL IV SCH (09:38)
[2018-07-16] MEDS: FOLIC ACID 1 MG in D5W 5% 50 ML IV SCH (10:04)
[2018-07-16] MEDS: MIDAZOLAM DRIP 50 mg/50mL 50 ML IV SCH (10:12)
[2018-07-16] MEDS: PROPOFOL 100 ML IV SCH (10:12)
[2018-07-16] MEDS: DEXMEDETOMIDINE HCL 400 MCG in D5W 5% 96 ML IV SCH (10:25)
[2018-07-16 12:00] VITALS: BP 140/80
[2018-07-16] MEDS ORDERED: FUROSEMIDE 20 MG TAB PO ONE (12:45)
[2018-07-16 16:00] VITALS: BP 154/63
[2018-07-16] MEDS: SPIRONOLACTONE 25 MG TAB PO SCH (18:03)
[2018-07-16] MEDS ORDERED: PROPRANOLOL HCL 20 MG TAB PO ONE (19:15)
[2018-07-16 22:00] VITALS: BP 146/82
[2018-07-16] MEDS: INSULIN LANTUS (GLARGINE) 1 /0.01ml (100units/ml) SC SCH (22:01)
[2018-07-17] MEDS: InsuLIN REG 1unit/0.01ml Soln (100units/ml) SC SCH ×5 (00:01→23:47)
[2018-07-17] MEDS: ACCU-CHEK COMFORT CURVE STRIP VI SCH ×5 (00:06→23:47)
[2018-07-17] MEDS: ALBUTEROL SULF 2.5 MG/0.5ML(0.5%) NEB SOLN NEB SCH ×4 (00:17→19:14)
[2018-07-17] MEDS: IPRATROPIUM BROM 0.5 MG/2.5ML INH SOL NEB SCH ×4 (00:17→19:13)
[2018-07-17] MEDS: VANCOMYCIN 1,250 MG in D5W 5% 250 ML IV SCH ×2 (04:51→17:13)
[2018-07-17 05:00] VITALS: BP 150/80
[2018-07-17] MEDS: SIMETHICONE 40 MG/0.6 ML ORAL DROP PO SCH ×4 (05:48→22:15)
[2018-07-17] MEDS: methylPREDNISolone SOD SUCC 40 MG/ML VL IV SCH ×3 (05:49→22:15)
[2018-07-17] MEDS: PROPRANOLOL HCL 20 MG TAB PO SCH ×3 (05:49→22:00)
[2018-07-17] MEDS: SPIRONOLACTONE 25 MG TAB PO SCH ×2 (05:49→18:03)
[2018-07-17] MEDS: PIPERACILLIN-TAZOB 3.375GM 100 ML IV SCH ×5 (07:01→23:47)
[2018-07-17] MEDS: metFORMIN HYDROCHLORIDE 500 MG TAB PO SCH ×2 (07:01→18:02)
[2018-07-17 07:31] LABS: Basophils # (auto) 0 uL; Eosinophils # (auto) 0 uL; Eosinophils % (auto) 0.1 % (0.0-7.0); Hemoglobin 9.8 g/dL (13.5-17.5); Lymphocytes # (auto) 0.6 uL; Lymphocytes % (auto) 12.1 % (10.0-50.0); Mean Corpuscular Hemoglobin 23.2 pg (28.0-32.0); Monocytes # (auto) 0.4 uL; Red Blood Cells 4.22 10^6/uL (4.5-5.90)
[2018-07-17 07:33] LABS: Mean Corpuscular Hgb Conc. 31.5 g/dL (32.0-36.0); Mean Corpuscular Volume 73.5 fL (80.0-100.0); Monocytes % (auto) 7.9 % (0.0-12.0); Neutrophils % (auto) 79.9 % (37.0-80.0); Nucleated Red Blood Cells % 0.2 %; Platelet Count (auto) 104 10^3/uL (140-450); White Blood Cell 5.1 10^3/uL (4.4-10.8)
[2018-07-17 07:34] LABS: Albumin 2.6 g/dL (3.4-5.0); Calcium 8.1 mg/dL (8.5-10.1); Potassium 4.3 mmol/L (3.5-5.1)
[2018-07-17 07:38] LABS: BUN/Creatinine Ratio 22.8; Bilirubin, Total 0.7 mg/dL (0.2-1.0); Red Cell Distribution Width 20.1 % (11.8-14.3); Total Protein 6.6 g/dL (6.4-8.2)
[2018-07-17 08:30] VITALS: BP 144/72
[2018-07-17] MEDS: LACTULOSE 20Gm/30ML SOLN PO SCH ×2 (10:31→22:15)
[2018-07-17] MEDS: THIAMINE 100mg/ml INJ (200mg/2ml VIAL) IV SCH (10:32)
[2018-07-17] MEDS: FUROSEMIDE 20 MG TAB PO SCH (10:32)
[2018-07-17] MEDS: PANTOPRAZOLE 40 MG/10 ML VIAL IV SCH (10:32)
[2018-07-17] MEDS: FOLIC ACID 1 MG in D5W 5% 50 ML IV SCH (10:33)
[2018-07-17 12:00] LABS: Basophils # (auto) 0 uL; Eosinophils # (auto) 0 uL; Hemoglobin 10.7 g/dL (13.5-17.5); Lymphocytes # (auto) 0.8 uL; Neutrophils # (auto) 6.7 uL
[2018-07-17 12:02] LABS: Basophils % (auto) 0.3 % (0.0-2.0); Eosinophils % (auto) 0.1 % (0.0-7.0); Lymphocytes % (auto) 10.2 % (10.0-50.0); Mean Corpuscular Hemoglobin 22.5 pg (28.0-32.0); Mean Corpuscular Hgb Conc. 30.5 g/dL (32.0-36.0); Mean Corpuscular Volume 73.7 fL (80.0-100.0); Monocytes # (auto) 0.5 uL; Neutrophils % (auto) 83.4 % (37.0-80.0); Nucleated Red Blood Cells % 0.2 %; Platelet Count (auto) 134 10^3/uL (140-450); Red Blood Cells 4.74 10^6/uL (4.5-5.90); Red Cell Distribution Width 19.6 % (11.8-14.3)
[2018-07-17 13:00] VITALS: BP 138/77
[2018-07-17] MEDS ORDERED: PHENAZOPYRIDINE HCL 100 MG TAB PO ONE (14:30)
[2018-07-17 16:14] VITALS: BP 138/77
[2018-07-17 16:58] VITALS: BP 145/81
[2018-07-17 17:22] LABS: Urine Bacteria NONE SEEN /hpf (None Seen); Urine Blood 1+ /uL (Negative); Urine Specific Gravity 1.012 (1.001-1.035); Urine WBC 1 /hpf (0 - 3)
[2018-07-17] MEDS: glipiZIDE 5 MG TAB PO SCH (18:03)
[2018-07-17 22:00] VITALS: BP 146/83
[2018-07-17] MEDS: PHENAZOPYRIDINE HCL 100 MG TAB PO SCH (22:15)
[2018-07-17] MEDS: INSULIN LANTUS (GLARGINE) 1 /0.01ml (100units/ml) SC SCH (22:16)
[2018-07-18] MEDS: VANCOMYCIN 1,250 MG in D5W 5% 250 ML IV SCH ×2 (04:57→17:56)
[2018-07-18 05:00] VITALS: BP 150/78
[2018-07-18] MEDS: SIMETHICONE 40 MG/0.6 ML ORAL DROP PO SCH ×4 (05:55→22:05)
[2018-07-18] MEDS: methylPREDNISolone SOD SUCC 40 MG/ML VL IV SCH ×3 (05:55→22:06)
[2018-07-18] MEDS: SPIRONOLACTONE 25 MG TAB PO SCH ×2 (05:56→17:57)
[2018-07-18] MEDS: PROPRANOLOL HCL 20 MG TAB PO SCH ×3 (06:00→22:00)
[2018-07-18] MEDS: InsuLIN REG 1unit/0.01ml Soln (100units/ml) SC SCH ×4 (06:01→23:52)
[2018-07-18] MEDS: ACCU-CHEK COMFORT CURVE STRIP VI SCH ×4 (06:01→23:52)
[2018-07-18] MEDS: metFORMIN HYDROCHLORIDE 500 MG TAB PO SCH ×2 (06:43→17:57)
[2018-07-18] MEDS: glipiZIDE 5 MG TAB PO SCH ×2 (06:43→17:57)
[2018-07-18] MEDS: PIPERACILLIN-TAZOB 3.375GM 100 ML IV SCH ×4 (06:43→23:51)
[2018-07-18] MEDS: IPRATROPIUM BROM 0.5 MG/2.5ML INH SOL NEB SCH ×4 (06:46→19:36)
[2018-07-18] MEDS: ALBUTEROL SULF 2.5 MG/0.5ML(0.5%) NEB SOLN NEB SCH ×4 (06:46→19:36)
[2018-07-18 07:43] LABS: Albumin 2.6 g/dL (3.4-5.0); BUN/Creatinine Ratio 22.1; Calcium 7.3 mg/dL (8.5-10.1); Potassium 4.3 mmol/L (3.5-5.1)
[2018-07-18 07:47] LABS: Bilirubin, Total 0.6 mg/dL (0.2-1.0); Total Protein 6.2 g/dL (6.4-8.2)
[2018-07-18 09:00] VITALS: BP 145/83
[2018-07-18] MEDS: FOLIC ACID 1 MG in D5W 5% 50 ML IV SCH (10:00)
[2018-07-18] MEDS: THIAMINE 100mg/ml INJ (200mg/2ml VIAL) IV SCH (10:00)
[2018-07-18] MEDS: PANTOPRAZOLE 40 MG/10 ML VIAL IV SCH (10:00)
[2018-07-18] MEDS: PHENAZOPYRIDINE HCL 100 MG TAB PO SCH ×2 (11:31→22:05)
[2018-07-18] MEDS: LACTULOSE 20Gm/30ML SOLN PO SCH ×2 (11:31→22:05)
[2018-07-18] MEDS: FUROSEMIDE 20 MG TAB PO SCH (11:31)
[2018-07-18 13:00] VITALS: BP 140/76
[2018-07-18 17:00] VITALS: BP 142/74
[2018-07-18] MEDS ORDERED: SODIUM CHLORIDE 0.9% 500 ML IV ONE (17:30)
[2018-07-18 22:00] VITALS: BP 148/84
[2018-07-18] MEDS: INSULIN LANTUS (GLARGINE) 1 /0.01ml (100units/ml) SC SCH (22:06)
[2018-07-18 22:39] VITALS: BP 134/84
[2018-07-19] MEDS: IPRATROPIUM BROM 0.5 MG/2.5ML INH SOL NEB SCH ×3 (00:43→13:34)
[2018-07-19] MEDS: ALBUTEROL SULF 2.5 MG/0.5ML(0.5%) NEB SOLN NEB SCH ×3 (00:43→13:34)
[2018-07-19] MEDS: VANCOMYCIN 1,250 MG in D5W 5% 250 ML IV SCH (04:55)
[2018-07-19] MEDS: PROPRANOLOL HCL 20 MG TAB PO SCH (06:00)
[2018-07-19] MEDS: SPIRONOLACTONE 25 MG TAB PO SCH (06:02)
[2018-07-19] MEDS: methylPREDNISolone SOD SUCC 40 MG/ML VL IV SCH (06:02)
[2018-07-19] MEDS: SIMETHICONE 40 MG/0.6 ML ORAL DROP PO SCH (06:02)
[2018-07-19 06:05] VITALS: BP_SYST 101; BP_SYST 167; BP_DIAS 60; BP_DIAS 86
[2018-07-19] MEDS: ACCU-CHEK COMFORT CURVE STRIP VI SCH ×2 (06:10→12:00)
[2018-07-19] MEDS: InsuLIN REG 1unit/0.01ml Soln (100units/ml) SC SCH ×2 (06:13→12:00)
[2018-07-19 06:29] VITALS: BP 137/78
[2018-07-19] MEDS: glipiZIDE 5 MG TAB PO SCH (06:37)
[2018-07-19] MEDS: PIPERACILLIN-TAZOB 3.375GM 100 ML IV SCH (06:37)
[2018-07-19] MEDS: metFORMIN HYDROCHLORIDE 500 MG TAB PO SCH (06:37)
[2018-07-19 09:00] VITALS: BP 143/72
[2018-07-19] MEDS: THIAMINE 100mg/ml INJ (200mg/2ml VIAL) IV SCH (09:52)
[2018-07-19] MEDS: PHENAZOPYRIDINE HCL 100 MG TAB PO SCH (09:53)
[2018-07-19] MEDS: PANTOPRAZOLE 40 MG/10 ML VIAL IV SCH (09:53)
[2018-07-19] MEDS: LACTULOSE 20Gm/30ML SOLN PO SCH (09:53)
[2018-07-19] MEDS: FUROSEMIDE 20 MG TAB PO SCH (09:53)
[2018-07-19 12:43] VITALS: BP 143/72
[2018-07-19 13:00] VITALS: BP 155/82
[2018-07-19] MEDS: FOLIC ACID 1 MG in D5W 5% 50 ML IV SCH (13:06)
== END 2018-07-19 13:52 | disposition home or self-care (01) | DRG 207 ==
LOC: ER 03:01 → OVERFLOW 03:02 → ICU WEST 20:09 → DOU IN ICU 07-14 21:16 → TELE-WESTW 07-16 17:56
PROVIDERS: ADMIT Internal Medicine; ATTEND Internal Medicine
PROC: 5A1955Z Respiratory Ventilation, Greater than 96 Consecutive Hours (ICD-10-PCS; principal; 2018-07-05)
PROC: 0BH17EZ Insertion of Endotracheal Airway into Trachea, Via Natural or Artificial Opening (ICD-10-PCS; 2018-07-05)
DX: J96.01 Acute respiratory failure with hypoxia (principal); J18.9 Pneumonia, unspecified organism; G93.1 Anoxic brain damage, not elsewhere classified; E44.0 Moderate protein-calorie malnutrition; I13.0 Hypertensive heart and chronic kidney disease with heart failure and stage 1 through stage 4 chronic kidney disease, or unspecified chronic kidney disease; K76.6 Portal hypertension; D61.818 Other pancytopenia; I48.92 Unspecified atrial flutter; T83.83XA Hemorrhage due to genitourinary prosthetic devices, implants and grafts, initial encounter; S37.32XA Contusion of urethra, initial encounter; J96.02 Acute respiratory failure with hypercapnia; D50.9 Iron deficiency anemia, unspecified; E11.21 Type 2 diabetes mellitus with diabetic nephropathy; E11.22 Type 2 diabetes mellitus with diabetic chronic kidney disease; K74.60 Unspecified cirrhosis of liver; N18.3 Chronic kidney disease, stage 3 (moderate); I50.9 Heart failure, unspecified; E87.6 Hypokalemia; E11.65 Type 2 diabetes mellitus with hyperglycemia; E66.01 Morbid (severe) obesity due to excess calories; F10.10 Alcohol abuse, uncomplicated; G47.33 Obstructive sleep apnea (adult) (pediatric); I48.91 Unspecified atrial fibrillation; R31.0 Gross hematuria; K57.30 Diverticulosis of large intestine without perforation or abscess without bleeding; R16.1 Splenomegaly, not elsewhere classified; K59.00 Constipation, unspecified; N40.0 Benign prostatic hyperplasia without lower urinary tract symptoms; Z80.0 Family history of malignant neoplasm of digestive organs; I25.2 Old myocardial infarction; Z68.39 Body mass index [BMI] 39.0-39.9, adult; Z82.49 Family history of ischemic heart disease and other diseases of the circulatory system; Z83.3 Family history of diabetes mellitus; Y83.9 Surgical procedure, unspecified as the cause of abnormal reaction of the patient, or of later complication, without mention of misadventure at the time of the procedure
CPT/HCPCS: 36415; 36600; 70450; 71045; 71275; 74176; 76705; 76856; 80053; 80202; 80307; 80320; 81001; 82140; 82607; 82746; 82805; 82962; 83036; 83540; 83605; 83735; 83880; 84100; 84132; 84443; 84484; 85025; 85379; 85610; 85730; 87040; 87070; 87081; 87086; 87205; 93005; 93306; 93970; 94002; 94003; 94640; 95819; 96361; 96365; 96372; 96375; 97110; 97116; 97163; 97530; 99291; A6257; C9113; J0330; J1815; J1956; J2250; J2405; J2543; J2704; J3480; J7060

== ENCOUNTER 2018-11-19 10:40 | Inpatient (IN) | payer OTHER, MEDICAID ==
[~2018-11-19] VITALS: Ht 165.1 cm; Wt 100.3 kg
[~2018-11-19 10:40] MED LIST: AMLO5TAB13 PO; CARV3.1240 PO; FURO40TA PO; GABA100C9 PO; HYDR25TA4 PO; LOSA-49 PO; MECL-87 PO; METF-371 PO; PANT40TA2 PO; SIMV10TA84 PO
[2018-11-19 12:18] LABS: Basophils # (auto) 0 uL; Basophils % (auto) 0.2 % (0.0-2.0); Eosinophils # (auto) 0.1 uL; Eosinophils % (auto) 0.6 % (0.0-7.0); Hematocrit 47.8 % (41.0-53.0); Hemoglobin 16.2 g/dL (13.5-17.5); Lymphocytes # (auto) 0.5 uL; Lymphocytes % (auto) 5.4 % (10.0-50.0); Mean Corpuscular Hemoglobin 30.3 pg (28.0-32.0); Mean Corpuscular Hgb Conc. 33.8 g/dL (32.0-36.0); Mean Corpuscular Volume 89.5 fL (80.0-100.0); Monocytes # (auto) 0.5 uL; Monocytes % (auto) 5.2 % (0.0-12.0); Neutrophils # (auto) 8.7 uL; Neutrophils % (auto) 88.6 % (37.0-80.0); Nucleated Red Blood Cells % 0.2 %; Platelet Count (auto) 119 10^3/uL (140-450); Red Blood Cells 5.34 10^6/uL (4.5-5.90); Red Cell Distribution Width 18.4 % (11.8-14.3); White Blood Cell 9.8 10^3/uL (4.4-10.8)
[2018-11-19 12:31] LABS: Potassium 4.5 mmol/L (3.5-5.1)
[2018-11-19 12:40] LABS: Albumin 3.5 g/dL (3.4-5.0); BUN/Creatinine Ratio 17.3; Bilirubin, Total 1.7 mg/dL (0.2-1.0); Calcium 9.3 mg/dL (8.5-10.1); Total Protein 8.4 g/dL (6.4-8.2)
[2018-11-19 13:42] LABS: Urine Bacteria MOD /hpf (None Seen); Urine Blood 1+ /uL (Negative); Urine Specific Gravity 1.009 (1.001-1.035); Urine WBC 12 /hpf (0 - 3)
[2018-11-19] MEDS ORDERED: SODIUM CHLORIDE 0.9% 1,000 ML IVB ONE (15:17)
[2018-11-19] MEDS ORDERED: cefTRIAXone 1GM/50ML D5W 50 ML IV ONE ×2 (15:30→19:00)
[2018-11-19 16:25] LABS: INR 1.11 (0.9-1.15); Partial Thromboplastin Time 31.7 sec (23.78-33.04); Prothrombin Time 11.8 sec (9.27-12.13)
[2018-11-19] MEDS ORDERED: MORPHINE SULFATE 4 MG/ML SYR/VIAL IV PRN ×2 (19:00)
[2018-11-19] MEDS ORDERED: TEMAZEPAM 15 MG CAP PO PRN (19:00)
[2018-11-19] MEDS ORDERED: DEXTROSE (50%) 50ML SYRG IV PRN (19:00)
[2018-11-19] MEDS ORDERED: PROMETHAZINE HCL 25 MG/ML 1ML IV PRN (19:00)
[2018-11-19] MEDS ORDERED: LORazepam 0.5 MG TAB PO PRN (19:00)
[2018-11-19] MEDS ORDERED: NITROGLYCERIN 0.4 MG SL TAB SL PRN (19:00)
[2018-11-19] MEDS: traMADol HCL 50 MG TAB PO PRN (20:42)
[2018-11-19] MEDS: SODIUM CHLORIDE 0.9% 1,000 ML IV SCH (20:42)
[2018-11-19] MEDS: MAGNESIUM SULFATE 1GM/100ML 100 ML IV SCH ×2 (20:42→23:19)
[2018-11-19 21:50] VITALS: BP 122/62
--- NOTE | 2018-11-19 21:50 | NUR ---
Telemetry admit from ER DARELL BERRIOS admitted to Telemetry unit after NO SBAR received. Patient oriented to AGUILA GANDARA, RN primary RN, unit, room, bed, and unit policies regarding patient care and visiting hours. Patient now on continuous telemetry monitoring, tele box # 24 and telemetry reading on arrival to unit is SR 87 Patient weighed by bedscale and encouraged to call if they need something. All questions and concerns addressed, patient verbalized understanding. 2nd bag of Magnesium will be administered late due to time of arrival of pt. Will continue to monitor pt. Note:
[2018-11-19] MEDS: ACCU-CHEK COMFORT CURVE STRIP VI SCH (22:00)
--- NOTE | 2018-11-19 22:00 | NUR ---
Cooling Measures applied. Patient currently has temp of 100.0 , cooling measures in place.
[2018-11-19 22:04] VITALS: BP 122/62
--- NOTE | 2018-11-19 22:20 | NUR ---
UA SAMPLE SENT TO LAB WITH DATA KEYER
[2018-11-19] MEDS: InsuLIN REG 1unit/0.01ml Soln (100units/ml) SC SCH (22:30)
[2018-11-19] MEDS: ACETAMINOPHEN 500 MG TAB PO PRN (22:33)
[2018-11-19] MEDS: GABAPENTIN 100 MG CAP PO SCH (22:33)
[2018-11-19] MEDS: CARVEDILOL 3.125 MG TAB PO SCH (22:34)
[2018-11-19] MEDS ORDERED: MAGNESIUM SULFATE 1GM/100ML 100 ML IV ONE (23:17)
[2018-11-19 23:46] LABS: Urine Bacteria FEW /hpf (None Seen); Urine Blood 2+ /uL (Negative); Urine Specific Gravity 1.017 (1.001-1.035); Urine WBC 43 /hpf (0 - 3)
[2018-11-20] MEDS ORDERED: LACT10SO3 PO (00:40)
[2018-11-20] MEDS ORDERED: CITA10TA70 PO (00:40)
[2018-11-20] MEDS ORDERED: GLIP-116 PO (00:40)
[2018-11-20] MEDS ORDERED: INSUINJ18 SC (00:40)
[2018-11-20] MEDS ORDERED: PROP60CA34 PO (00:40)
[2018-11-20] MEDS ORDERED: SPIR25TA8 PO (00:40)
[2018-11-20] MEDS ORDERED: NAPR375T27 PO (00:40)
[2018-11-20] MEDS: SODIUM CHLORIDE 0.9% 1,000 ML IV SCH ×2 (04:59→15:38)
[2018-11-20 05:00] VITALS: BP 120/67
[2018-11-20] MEDS: ACCU-CHEK COMFORT CURVE STRIP VI SCH ×4 (06:13→21:40)
[2018-11-20] MEDS: InsuLIN REG 1unit/0.01ml Soln (100units/ml) SC SCH ×4 (06:14→21:41)
[2018-11-20 06:17] LABS: Basophils # (auto) 0.1 uL; Basophils % (auto) 0.8 % (0.0-2.0); Eosinophils # (auto) 0.1 uL; Eosinophils % (auto) 0.7 % (0.0-7.0); Hematocrit 38.9 % (41.0-53.0); Hemoglobin 13.3 g/dL (13.5-17.5); Lymphocytes % (auto) 12.9 % (10.0-50.0); Mean Corpuscular Hemoglobin 30.2 pg (28.0-32.0); Mean Corpuscular Hgb Conc. 34.1 g/dL (32.0-36.0); Mean Corpuscular Volume 88.6 fL (80.0-100.0); Monocytes # (auto) 0.7 uL; Monocytes % (auto) 8.6 % (0.0-12.0); Neutrophils # (auto) 6.1 uL; Nucleated Red Blood Cells % 0.1 %; Platelet Count (auto) 80 10^3/uL (140-450); Red Blood Cells 4.39 10^6/uL (4.5-5.90); Red Cell Distribution Width 17.5 % (11.8-14.3); White Blood Cell 7.9 10^3/uL (4.4-10.8)
[2018-11-20 06:45] LABS: Albumin 2.7 g/dL (3.4-5.0)
[2018-11-20 06:49] LABS: BUN/Creatinine Ratio 22.9; Bilirubin, Total 1.3 mg/dL (0.2-1.0); Total Protein 6.5 g/dL (6.4-8.2)
[2018-11-20] MEDS: cefTRIAXone 1GM/50ML D5W 50 ML IV SCH (08:43)
[2018-11-20] MEDS: traMADol HCL 50 MG TAB PO PRN ×2 (08:44→19:33)
[2018-11-20 09:22] VITALS: BP 100/59
[2018-11-20] MEDS: amLODIPine BESYLATE 5 MG TAB PO SCH (10:00)
[2018-11-20] MEDS: CARVEDILOL 3.125 MG TAB PO SCH ×2 (10:00→21:40)
[2018-11-20] MEDS: LOSARTAN POTASSIUM 50 MG TAB PO SCH (10:00)
[2018-11-20] MEDS: GABAPENTIN 100 MG CAP PO SCH ×2 (10:30→21:40)
[2018-11-20] MEDS: PANTOPRAZOLE 40 MG TAB PO SCH (10:30)
[2018-11-20] MEDS: ENOXAPARIN SOD 40 MG/0.4 ML SYRINGE SC SCH (10:30)
[2018-11-20 13:20] VITALS: BP 120/68
[2018-11-20 17:53] VITALS: BP 123/69
--- NOTE | 2018-11-20 19:10 | NUR ---
Opening Shift Note Assumed care of patient, awake and alert. No S/S of distress/SOB Pt complains pain 03/13 will medicate per Md order. Instructed on POC and to call for assist PRN, will continue to monitor for changes Q1hr and PRN. Bed locked and in lowest position call light within reach, pt on 2 L NC
[2018-11-20 22:00] VITALS: BP 131/73
[2018-11-21] MEDS: SODIUM CHLORIDE 0.9% 1,000 ML IV SCH (01:01)
[2018-11-21] MEDS: ACETAMINOPHEN 500 MG TAB PO PRN (01:01)
[2018-11-21] MEDS: traMADol HCL 50 MG TAB PO PRN (04:18)
[2018-11-21 05:00] VITALS: BP 103/65
[2018-11-21] MEDS: InsuLIN REG 1unit/0.01ml Soln (100units/ml) SC SCH ×2 (06:16→12:12)
[2018-11-21] MEDS: ACCU-CHEK COMFORT CURVE STRIP VI SCH ×2 (06:16→11:40)
--- NOTE | 2018-11-21 06:52 | NUR ---
CLOSING NOTE PT resting, no s/sx's of distress or sob noted. will endorse report to day RN
[2018-11-21 06:53] LABS: Albumin 2.5 g/dL (3.4-5.0); Calcium 7.8 mg/dL (8.5-10.1)
[2018-11-21 06:56] LABS: Basophils # (auto) 0 uL; Basophils % (auto) 0.7 % (0.0-2.0); Eosinophils # (auto) 0.2 uL; Eosinophils % (auto) 3.4 % (0.0-7.0); Hematocrit 36.1 % (41.0-53.0); Hemoglobin 12.5 g/dL (13.5-17.5); Lymphocytes % (auto) 18.1 % (10.0-50.0); Mean Corpuscular Hemoglobin 30.6 pg (28.0-32.0); Mean Corpuscular Hgb Conc. 34.6 g/dL (32.0-36.0); Mean Corpuscular Volume 88.3 fL (80.0-100.0); Monocytes # (auto) 0.7 uL; Monocytes % (auto) 11.6 % (0.0-12.0); Neutrophils # (auto) 3.8 uL; Neutrophils % (auto) 66.2 % (37.0-80.0); Nucleated Red Blood Cells % 0.1 %; Platelet Count (auto) 82 10^3/uL (140-450); Red Blood Cells 4.09 10^6/uL (4.5-5.90); Red Cell Distribution Width 17.4 % (11.8-14.3); White Blood Cell 5.8 10^3/uL (4.4-10.8)
[2018-11-21 06:57] LABS: BUN/Creatinine Ratio 19.2; Total Protein 6.4 g/dL (6.4-8.2)
[2018-11-21 09:00] VITALS: BP 113/68
--- NOTE | 2018-11-21 09:59 | NUR ---
Seen by Dr Jules at the bedside and patient can be dc'd home.
[2018-11-21] MEDS: CARVEDILOL 3.125 MG TAB PO SCH (10:11)
[2018-11-21] MEDS: GABAPENTIN 100 MG CAP PO SCH (10:11)
[2018-11-21] MEDS: amLODIPine BESYLATE 5 MG TAB PO SCH (10:13)
[2018-11-21] MEDS: ENOXAPARIN SOD 40 MG/0.4 ML SYRINGE SC SCH (10:13)
[2018-11-21] MEDS: cefTRIAXone 1GM/50ML D5W 50 ML IV SCH (10:20)
[2018-11-21] MEDS: PANTOPRAZOLE 40 MG TAB PO SCH (10:20)
[2018-11-21] MEDS: LOSARTAN POTASSIUM 50 MG TAB PO SCH (11:39)
--- NOTE | 2018-11-21 12:26 | NUR ---
assessment Per consult advanced directive. Patient was provided with advanced directive. Addendum: 11/22/18 at [id number] by Britt Obando Amended: Links added.
[2018-11-21 12:44] VITALS: BP 113/68
--- NOTE | 2018-11-21 13:06 | NUR ---
Discharge instructions given as ordered. Encourage to follow up with PMD as instructed. All questions and concerns addressed. Patient verbalized understanding. IV removed with catheter intact, pressure dressing applied. Telemetry unit returned to [facility].
--- NOTE | 2018-11-21 13:20 | NUR ---
Patient taken to vehicle ambulatory with all personal belongings, accompanied by staff and family member. No distress noted at time of departure.
== END 2018-11-21 13:29 | disposition home health service (06) | DRG 683 ==
LOC: ER 10:40 → TELE 19:03 → TELE-CENTR 21:35
PROVIDERS: ADMIT Internal Medicine; ATTEND Internal Medicine
DX: N17.9 Acute kidney failure, unspecified (principal); N30.01 Acute cystitis with hematuria; E44.0 Moderate protein-calorie malnutrition; E87.1 Hypo-osmolality and hyponatremia; K76.6 Portal hypertension; N40.0 Benign prostatic hyperplasia without lower urinary tract symptoms; E11.65 Type 2 diabetes mellitus with hyperglycemia; E11.42 Type 2 diabetes mellitus with diabetic polyneuropathy; D64.9 Anemia, unspecified; Z80.0 Family history of malignant neoplasm of digestive organs; D69.59 Other secondary thrombocytopenia; E11.22 Type 2 diabetes mellitus with diabetic chronic kidney disease; R16.1 Splenomegaly, not elsewhere classified; I70.90 Unspecified atherosclerosis; K76.9 Liver disease, unspecified; E83.42 Hypomagnesemia; I12.9 Hypertensive chronic kidney disease with stage 1 through stage 4 chronic kidney disease, or unspecified chronic kidney disease; I48.0 Paroxysmal atrial fibrillation; K21.9 Gastro-esophageal reflux disease without esophagitis; M10.9 Gout, unspecified; N18.3 Chronic kidney disease, stage 3 (moderate); Z82.49 Family history of ischemic heart disease and other diseases of the circulatory system; Z83.3 Family history of diabetes mellitus; Z90.49 Acquired absence of other specified parts of digestive tract
CPT/HCPCS: 36415; 71045; 74176; 80053; 81001; 82962; 83036; 83735; 85025; 85610; 85730; 87086; 87088; 87186; 94761; 96374; G0378; J0696; J1815

== ENCOUNTER → 2019-02-10 | Outpatient (CLI) | payer BC ==
[~2019-02-10] MED LIST changes: -CARV3.1240 PO; +CHOL20007 PO; +CITA10TA70 PO; -FURO40TA PO; -GABA100C9 PO; +GLIP1TAB38 PO; -HYDR25TA4 PO; +INSUINJ18 SC; +LACT10SO3 PO; -LOSA-49 PO; -MECL-87 PO; -METF-371 PO; +PRO20T PO; +PROP60CA34 PO; +RIFA550T PO; -SIMV10TA84 PO; +TAMS1CAP25
[2019-02-10 09:47] LABS: Albumin 3.4 g/dL (3.4-5.0); BUN/Creatinine Ratio 13.8; Calcium 8.7 mg/dL (8.5-10.1); Potassium 3.6 mmol/L (3.5-5.1)
[2019-02-10 09:49] LABS: Bilirubin, Total 0.8 mg/dL (0.2-1.0); Total Protein 7.1 g/dL (6.4-8.2)
== END | disposition home or self-care (01) ==
LOC: LAB 08:33
PROVIDERS: ATTEND Internal Medicine
DX: E11.9 Type 2 diabetes mellitus without complications (principal); N40.0 Benign prostatic hyperplasia without lower urinary tract symptoms; I11.0 Hypertensive heart disease with heart failure; I50.9 Heart failure, unspecified
CPT/HCPCS: 36415; 80053; 82270; 83036; 84153; 84443

== ENCOUNTER → 2019-03-02 | Outpatient (CLI) | payer BC | END | disposition home or self-care (01) | LOC: LAB 10:02 | PROVIDERS: ATTEND Internal Medicine | DX: R06.02 Shortness of breath (principal) | CPT/HCPCS: 36415; 83880; 85379 ==

== ENCOUNTER → 2019-03-14 | Outpatient (CLI) | payer BC | END | disposition home or self-care (01) | LOC: LAB 12:12 | PROVIDERS: ATTEND Internal Medicine | DX: I12.9 Hypertensive chronic kidney disease with stage 1 through stage 4 chronic kidney disease, or unspecified chronic kidney disease (principal); E11.22 Type 2 diabetes mellitus with diabetic chronic kidney disease; N18.3 Chronic kidney disease, stage 3 (moderate) | CPT/HCPCS: 82043 ==

== ENCOUNTER 2019-05-08 08:01 | Day surgery (SDC) | payer BC, MEDICAID ==
[2019-05-04 12:25] LABS: Basophils # (auto) 0.1 uL; Eosinophils # (auto) 0.4 uL; Eosinophils % (auto) 8.1 % (0.0-7.0); Hematocrit 43.1 % (41.0-53.0); Hemoglobin 14.5 g/dL (13.5-17.5); Lymphocytes # (auto) 1.8 uL; Lymphocytes % (auto) 32.6 % (10.0-50.0); Mean Corpuscular Hemoglobin 28.1 pg (28.0-32.0); Mean Corpuscular Hgb Conc. 33.6 g/dL (32.0-36.0); Mean Corpuscular Volume 83.5 fL (80.0-100.0); Monocytes # (auto) 0.6 uL; Monocytes % (auto) 10.4 % (0.0-12.0); Neutrophils # (auto) 2.5 uL; Neutrophils % (auto) 46.9 % (37.0-80.0); Nucleated Red Blood Cells % 0.2 %; Platelet Count (auto) 138 10^3/uL (140-450); Red Blood Cells 5.16 10^6/uL (4.5-5.90); Red Cell Distribution Width 15.4 % (11.8-14.3); White Blood Cell 5.4 10^3/uL (4.4-10.8)
[2019-05-04 12:37] LABS: INR 1.05 (0.9-1.15); Partial Thromboplastin Time 30.6 sec (23.64-32.05)
[~2019-05-08] VITALS: Ht 165.1 cm; Wt 98.9 kg
[~2019-05-08 08:01] MED LIST changes: -AMLO5TAB13 PO; +AMLO5TAB15 PO; +CARV3.1240 PO; -CHOL20007 PO; +GLIP10TA16 PO; -GLIP1TAB38 PO; -PROP60CA34 PO
[2019-05-08] MEDS ORDERED: SIMETHICONE 40 MG/0.6 ML ORAL DROP ONE (08:23)
[2019-05-08] MEDS ORDERED: SODIUM CHLORIDE LOCK 10 ML ONE (08:23)
[2019-05-08] MEDS ORDERED: FLUMAZENIL 0.1 MG/ML INJ 10ML MDV IV ONE (08:23)
[2019-05-08] MEDS ORDERED: NALOXONE HCL 0.4 MG/ML VIAL ONE (08:23)
[2019-05-08] MEDS ORDERED: diphenhdrAMINE HCL 50 MG/1 ML VL ONE (08:24)
[2019-05-08] MEDS: fentaNYL CITRATE 100 MCG/2 ML VL ONE ×2 (09:16→09:23)
[2019-05-08] MEDS: MIDAZOLAM HCL 5 MG/ML-1ML VIAL ONE ×2 (09:16→09:23)
[2019-05-08 10:13] VITALS: BP 124/78
== END 2019-05-08 10:23 | disposition home or self-care (01) ==
LOC: GI 08:01
PROVIDERS: ATTEND Internal Medicine Gastroenterology
DX: Z12.11 Encounter for screening for malignant neoplasm of colon (principal); D12.2 Benign neoplasm of ascending colon; D12.5 Benign neoplasm of sigmoid colon; K74.60 Unspecified cirrhosis of liver; I25.2 Old myocardial infarction; E11.22 Type 2 diabetes mellitus with diabetic chronic kidney disease; I12.9 Hypertensive chronic kidney disease with stage 1 through stage 4 chronic kidney disease, or unspecified chronic kidney disease; N18.3 Chronic kidney disease, stage 3 (moderate); Z98.890 Other specified postprocedural states; Z79.84 Long term (current) use of oral hypoglycemic drugs; Z79.899 Other long term (current) drug therapy; Z79.4 Long term (current) use of insulin
CPT/HCPCS: 36415; 45385; 82962; 85025; 85610; 85730; 88305; J1200; J2250; J3010; J7030; 99152

== ENCOUNTER → 2019-07-19 | Outpatient (CLI) | payer BC, MEDICAID ==
[2019-07-19 16:16] LABS: Albumin 3.1 g/dL (3.4-5.0); Calcium 8.1 mg/dL (8.5-10.1); Potassium 3.8 mmol/L (3.5-5.1)
[2019-07-19 16:19] LABS: BUN/Creatinine Ratio 9.6; Bilirubin, Total 0.6 mg/dL (0.2-1.0); Total Protein 7.1 g/dL (6.4-8.2)
[2019-07-19 16:26] LABS: Basophils # (auto) 0.1 uL; Lymphocytes # (auto) 1.8 uL
[2019-07-19 16:29] LABS: Basophils % (auto) 1.2 % (0.0-2.0); Eosinophils # (auto) 0.6 uL; Eosinophils % (auto) 11.8 % (0.0-7.0); Hematocrit 42.5 % (41.0-53.0); Hemoglobin 14.3 g/dL (13.5-17.5); Mean Corpuscular Hemoglobin 27.8 pg (28.0-32.0); Mean Corpuscular Hgb Conc. 33.6 g/dL (32.0-36.0); Mean Corpuscular Volume 82.7 fL (80.0-100.0); Monocytes # (auto) 0.5 uL; Monocytes % (auto) 8.9 % (0.0-12.0); Neutrophils # (auto) 2.5 uL; Neutrophils % (auto) 45.1 % (37.0-80.0); Platelet Count (auto) 156 10^3/uL (140-450); Red Blood Cells 5.13 10^6/uL (4.5-5.90); Red Cell Distribution Width 18.8 % (11.8-14.3); White Blood Cell 5.5 10^3/uL (4.4-10.8)
== END | disposition home or self-care (01) ==
LOC: LAB 15:51
PROVIDERS: ATTEND Internal Medicine
DX: E11.9 Type 2 diabetes mellitus without complications (principal); I11.0 Hypertensive heart disease with heart failure; I50.9 Heart failure, unspecified
CPT/HCPCS: 36415; 80053; 85025; 85652

== ENCOUNTER → 2019-09-28 | Outpatient (CLI) | payer BC, MEDICAID ==
[2019-09-28 10:21] LABS: Cholesterol 215 mg/dL (< 200)
[2019-09-28 10:24] LABS: HDL Cholesterol 57 mg/dL (40-59); LDL Cholesterol 132 mg/dL (< 100); Triglycerides 140 mg/dL (< 150)
== END | disposition home or self-care (01) ==
LOC: LAB 09:48
PROVIDERS: ATTEND Internal Medicine
DX: E11.9 Type 2 diabetes mellitus without complications (principal); N52.9 Male erectile dysfunction, unspecified
CPT/HCPCS: 36415; 80061; 83036; 84403

== ENCOUNTER → 2019-11-15 | Outpatient (CLI) | payer BC, MEDICAID ==
[2019-11-15 09:42] LABS: Albumin 3.2 g/dL (3.4-5.0)
[2019-11-15 09:46] LABS: Bilirubin, Direct 0.2 mg/dL (0-0.2); Bilirubin, Total 0.7 mg/dL (0.2-1.0); Total Protein 7.5 g/dL (6.4-8.2)
== END | disposition home or self-care (01) ==
LOC: LAB 08:53
PROVIDERS: ATTEND Internal Medicine
DX: E11.9 Type 2 diabetes mellitus without complications (principal); E78.5 Hyperlipidemia, unspecified
CPT/HCPCS: 36415; 80076

== ENCOUNTER → 2020-01-09 | Outpatient (CLI) | payer BC, MEDICAID ==
[2020-01-09 09:11] LABS: BUN/Creatinine Ratio 8.7; Calcium 8.9 mg/dL (8.5-10.1); Potassium 3.8 mmol/L (3.5-5.1)
== END | disposition home or self-care (01) ==
LOC: LAB 08:40
PROVIDERS: ATTEND Internal Medicine
DX: E11.9 Type 2 diabetes mellitus without complications (principal)
CPT/HCPCS: 36415; 80048

== ENCOUNTER → 2020-02-19 | Outpatient (CLI) | payer BC, MEDICAID ==
[2020-02-19 08:54] LABS: Cholesterol 158 mg/dL (< 200); HDL Cholesterol 57 mg/dL (40-59); LDL Cholesterol 87 mg/dL (< 100); Triglycerides 101 mg/dL (< 150)
== END | disposition home or self-care (01) ==
LOC: LAB 08:00
PROVIDERS: ATTEND Internal Medicine
DX: Z12.11 Encounter for screening for malignant neoplasm of colon (principal); E11.9 Type 2 diabetes mellitus without complications; I10 Essential (primary) hypertension
CPT/HCPCS: 36415; 80061; 82043; 83036; 84153

== ENCOUNTER → 2020-03-27 | Outpatient (CLI) | payer BC, MEDICAID ==
[2020-03-27 11:13] LABS: Albumin 3.2 g/dL (3.4-5.0)
[2020-03-27 11:24] LABS: BUN/Creatinine Ratio 17.7; Bilirubin, Total 0.9 mg/dL (0.2-1.0); Calcium 8.3 mg/dL (8.5-10.1)
[2020-03-27 11:29] LABS: Total Protein 6.9 g/dL (6.4-8.2)
== END | disposition home or self-care (01) ==
LOC: LAB 10:03
PROVIDERS: ATTEND Internal Medicine
DX: N40.1 Benign prostatic hyperplasia with lower urinary tract symptoms (principal); E11.9 Type 2 diabetes mellitus without complications
CPT/HCPCS: 36415; 80053; 82270; 84403

== ENCOUNTER → 2020-04-03 | Outpatient (CLI) | payer BC, MEDICAID | END | disposition home or self-care (01) | LOC: XYW 10:45 | PROVIDERS: ATTEND Internal Medicine | DX: I08.0 Rheumatic disorders of both mitral and aortic valves (principal); R07.9 Chest pain, unspecified; R06.02 Shortness of breath | CPT/HCPCS: 93306 ==

== ENCOUNTER → 2020-05-24 | Outpatient (CLI) | payer BC, MEDICAID ==
[~2020-05-24] VITALS: Ht 165.1 cm; Wt 103.4 kg
[~2020-05-24] MED LIST changes: +ADENOSINE 87 MG in GIVE UN-DILUTED 0 ML IV STA
== END | disposition home or self-care (01) ==
LOC: XY 07:09
PROVIDERS: ATTEND Internal Medicine
DX: R06.02 Shortness of breath (principal); R07.9 Chest pain, unspecified
CPT/HCPCS: 78452; 93017; A9500; J0153

== ENCOUNTER → 2020-07-16 | Outpatient (CLI) | payer BC, MEDICAID ==
[~2020-07-16] MED LIST changes: -ADENOSINE 87 MG in GIVE UN-DILUTED 0 ML IV STA
[2020-07-16 08:25] LABS: Basophils # (auto) 0.1 10 ^3/uL (0-0.2); Basophils % (auto) 1.4 % (0.0-2.0); Eosinophils # (auto) 0.7 10 ^3/uL (0-0.8); Eosinophils % (auto) 12.1 % (0.0-7.0); Hematocrit 44.1 % (41.0-53.0); Hemoglobin 15.4 g/dL (13.5-17.5); Lymphocytes # (auto) 1.8 10 ^3/uL (0.4-5.4); Mean Corpuscular Hemoglobin 30.1 pg (28.0-32.0); Mean Corpuscular Hgb Conc. 34.9 g/dL (32.0-36.0); Mean Corpuscular Volume 86.4 fL (80.0-100.0); Monocytes # (auto) 0.4 10 ^3/uL (0-1.3); Monocytes % (auto) 7.2 % (0.0-12.0); Neutrophils # (auto) 2.5 10 ^3/uL (1.6-8.6); Neutrophils % (auto) 46.3 % (37.0-80.0); Nucleated Red Blood Cells % 0.1 %; Platelet Count (auto) 148 10^3/uL (140-450); Red Cell Distribution Width 16.6 % (11.8-14.3); White Blood Cell 5.5 10^3/uL (4.4-10.8)
[2020-07-16 08:51] LABS: Albumin 3.6 g/dL (3.4-5.0)
[2020-07-16 08:55] LABS: BUN/Creatinine Ratio 13.8; CRP High Sensitivity 0.16 mg/dL (< 0.3); Total Protein 7.1 g/dL (6.4-8.2)
[2020-07-16 09:06] LABS: Potassium 2.9 mmol/L (3.5-5.1)
== END | disposition home or self-care (01) ==
LOC: LAB 07:50
PROVIDERS: ATTEND Internal Medicine
DX: M54.31 Sciatica, right side (principal)
CPT/HCPCS: 36415; 80053; 83036; 85025; 85652; 86141

== ENCOUNTER → 2020-09-09 | Outpatient (CLI) | payer BC, MEDICAID ==
[2020-09-09 12:33] LABS: Calcium 8.3 mg/dL (8.5-10.1)
== END | disposition home or self-care (01) ==
LOC: LAB 11:11
PROVIDERS: ATTEND Internal Medicine
DX: E11.9 Type 2 diabetes mellitus without complications (principal)
CPT/HCPCS: 36415; 80048

== ENCOUNTER → 2020-11-08 | Outpatient (CLI) | payer BC, MEDICAID ==
[~2020-11-08] MED LIST changes: +AMLO-489 PO; -AMLO5TAB15 PO
== END | disposition home or self-care (01) ==
LOC: LAB 08:26
PROVIDERS: ATTEND Internal Medicine
DX: E11.42 Type 2 diabetes mellitus with diabetic polyneuropathy (principal); M16.0 Bilateral primary osteoarthritis of hip
CPT/HCPCS: 36415; 80061; 82043; 83036; 84550

== ENCOUNTER → 2020-12-25 | Outpatient (CLI) | payer BC, MEDICAID ==
[2020-12-25 07:59] LABS: BUN/Creatinine Ratio 15.9; Calcium 8.4 mg/dL (8.5-10.1); Potassium 4.3 mmol/L (3.5-5.1)
== END | disposition home or self-care (01) ==
LOC: LAB 07:18
PROVIDERS: ATTEND Internal Medicine
DX: E11.9 Type 2 diabetes mellitus without complications (principal); R60.9 Edema, unspecified
CPT/HCPCS: 36415; 80048; 83880

== ENCOUNTER → 2021-01-01 | Outpatient (CLI) | payer BC, MEDICAID ==
[2021-01-01 08:03] LABS: Cholesterol 201 mg/dL (< 200)
[2021-01-01 08:06] LABS: HDL Cholesterol 53 mg/dL (40-59); LDL Cholesterol 121 mg/dL (< 100); Triglycerides 185 mg/dL (< 150)
== END | disposition home or self-care (01) ==
LOC: LAB 07:22
PROVIDERS: ATTEND Internal Medicine
DX: E11.9 Type 2 diabetes mellitus without complications (principal); R60.9 Edema, unspecified; Z12.11 Encounter for screening for malignant neoplasm of colon
CPT/HCPCS: 36415; 80061; 83036; 84153

== ENCOUNTER → 2021-01-07 | Outpatient (CLI) | payer BC, MEDICAID | END | disposition home or self-care (01) | LOC: LAB 15:22 | PROVIDERS: ATTEND Internal Medicine | DX: Z12.11 Encounter for screening for malignant neoplasm of colon (principal); R60.9 Edema, unspecified; E11.9 Type 2 diabetes mellitus without complications | CPT/HCPCS: 82270 ==

== ENCOUNTER → 2021-03-06 | Outpatient (CLI) | payer BC, MEDICAID ==
[~2021-03-06] MED LIST changes: -CITA10TA70 PO; -TAMS1CAP25
[2021-03-06 09:08] LABS: Cholesterol 207 mg/dL (< 200); HDL Cholesterol 41 mg/dL (40-59); LDL Cholesterol 128 mg/dL (< 100); Triglycerides 257 mg/dL (< 150)
== END | disposition home or self-care (01) ==
LOC: LAB 07:40
PROVIDERS: ATTEND Internal Medicine
DX: Z12.11 Encounter for screening for malignant neoplasm of colon (principal); E11.9 Type 2 diabetes mellitus without complications; E78.5 Hyperlipidemia, unspecified
CPT/HCPCS: 36415; 80061; 82043; 83036; 84153

== ENCOUNTER → 2022-02-16 | Outpatient (CLI) | payer BC ==
[2022-02-16 11:08] LABS: Albumin 3.2 g/dL (3.4-5.0)
[2022-02-16 11:14] LABS: Bilirubin, Direct 0.2 mg/dL (0-0.2); Bilirubin, Total 0.7 mg/dL (0.2-1.0)
== END | disposition home or self-care (01) ==
LOC: LAB 08:59
PROVIDERS: ATTEND Internal Medicine
DX: E78.5 Hyperlipidemia, unspecified (principal)
CPT/HCPCS: 36415; 80076

== ENCOUNTER → 2022-04-16 | Outpatient (CLI) | payer BC ==
[2022-04-16 09:45] LABS: Albumin 3.3 g/dL (3.4-5.0); Calcium 8.5 mg/dL (8.5-10.1); Potassium 3.8 mmol/L (3.5-5.1)
[2022-04-16 09:49] LABS: BUN/Creatinine Ratio 12.8; Bilirubin, Total 0.6 mg/dL (0.2-1.0); Total Protein 6.8 g/dL (6.4-8.2)
== END | disposition home or self-care (01) ==
LOC: LAB 08:53
PROVIDERS: ATTEND Internal Medicine
DX: E78.5 Hyperlipidemia, unspecified (principal); E11.9 Type 2 diabetes mellitus without complications
CPT/HCPCS: 36415; 80053; 80061; 82043; 83036

== ENCOUNTER → 2022-06-09 | Outpatient (CLI) | payer BC | END | disposition home or self-care (01) | LOC: LAB 08:28 | PROVIDERS: ATTEND Internal Medicine | DX: N52.9 Male erectile dysfunction, unspecified (principal) | CPT/HCPCS: 36415; 84403 ==

== ENCOUNTER → 2022-09-04 | Outpatient (CLI) | payer BC | END | disposition home or self-care (01) | LOC: LAB 09:47 | PROVIDERS: ATTEND Internal Medicine | DX: Z12.11 Encounter for screening for malignant neoplasm of colon (principal); E66.9 Obesity, unspecified; E11.9 Type 2 diabetes mellitus without complications; N52.9 Male erectile dysfunction, unspecified | CPT/HCPCS: 36415; 82043; 83036; 84153 ==

== ENCOUNTER → 2022-10-12 | Outpatient (CLI) | payer BC, MEDICAID ==
[2022-10-12 10:34] LABS: Calcium 8.4 mg/dL (8.5-10.1); Potassium 4.8 mmol/L (3.5-5.1)
[2022-10-12 10:37] LABS: BUN/Creatinine Ratio 16.2
== END | disposition home or self-care (01) ==
LOC: LAB 09:42
PROVIDERS: ATTEND Internal Medicine
DX: E11.9 Type 2 diabetes mellitus without complications (principal); M25.552 Pain in left hip; M54.9 Dorsalgia, unspecified
CPT/HCPCS: 36415; 80048; 85652

== ENCOUNTER → 2022-11-16 | Outpatient (CLI) | payer BC, MEDICAID ==
[2022-11-16 09:08] LABS: Basophils # (auto) 0.1 10 ^3/uL (0-0.2); Basophils % (auto) 1.2 % (0.0-2.0); Eosinophils # (auto) 0.6 10 ^3/uL (0-0.8); Eosinophils % (auto) 10.9 % (0.0-7.0); Hematocrit 47.6 % (41.0-53.0); Hemoglobin 15.9 g/dL (13.5-17.5); Lymphocytes # (auto) 1.7 10 ^3/uL (0.4-5.4); Lymphocytes % (auto) 31.2 % (10.0-50.0); Mean Corpuscular Hemoglobin 28.9 pg (28.0-32.0); Mean Corpuscular Hgb Conc. 33.3 g/dL (32.0-36.0); Mean Corpuscular Volume 86.8 fL (80.0-100.0); Monocytes # (auto) 0.4 10 ^3/uL (0-1.3); Monocytes % (auto) 7.5 % (0.0-12.0); Neutrophils # (auto) 2.7 10 ^3/uL (1.6-8.6); Neutrophils % (auto) 49.2 % (37.0-80.0); Nucleated Red Blood Cells % 0.2 %; Red Blood Cells 5.48 10^6/uL (4.5-5.90); White Blood Cell 5.5 10^3/uL (4.4-10.8)
== END | disposition home or self-care (01) ==
LOC: LAB 08:40
PROVIDERS: ATTEND Internal Medicine
DX: E11.9 Type 2 diabetes mellitus without complications (principal); R80.9 Proteinuria, unspecified; G62.9 Polyneuropathy, unspecified; M25.552 Pain in left hip
CPT/HCPCS: 36415; 84153; 85025; 85652

== ENCOUNTER → 2023-03-03 | Outpatient (CLI) | payer BC, MEDICAID ==
[~2023-03-03] MED LIST changes: -AMLO-489 PO; +AMLO1TAB22 PO; -GLIP10TA16 PO; +GLIP10TA21 PO
[2023-03-03 10:33] LABS: Albumin 3.7 g/dL (3.4-5.0); Calcium 8.7 mg/dL (8.5-10.1); Potassium 4.1 mmol/L (3.5-5.1)
[2023-03-03 10:39] LABS: BUN/Creatinine Ratio 14.4 (10.0-20.0); Bilirubin, Total 0.9 mg/dL (0.2-1.0); Total Protein 7.1 g/dL (6.4-8.2)
== END | disposition home or self-care (01) ==
LOC: LAB 09:43
PROVIDERS: ATTEND Internal Medicine
DX: Z12.11 Encounter for screening for malignant neoplasm of colon (principal); N18.30 Chronic kidney disease, stage 3 unspecified; E11.22 Type 2 diabetes mellitus with diabetic chronic kidney disease
CPT/HCPCS: 36415; 80053; 80061; 82140; 83036; 84443

== ENCOUNTER → 2023-03-08 | Outpatient (CLI) | payer BC, MEDICAID | END | disposition home or self-care (01) | LOC: LAB 12:03 | PROVIDERS: ATTEND Internal Medicine | DX: Z12.11 Encounter for screening for malignant neoplasm of colon (principal); E11.9 Type 2 diabetes mellitus without complications; N18.30 Chronic kidney disease, stage 3 unspecified | CPT/HCPCS: 82270 ==

== ENCOUNTER → 2023-05-20 | Outpatient (CLI) | payer BC, MEDICAID ==
[2023-05-20 11:09] LABS: Calcium 8.6 mg/dL (8.5-10.1); Potassium 4.3 mmol/L (3.5-5.1)
[2023-05-20 11:11] LABS: BUN/Creatinine Ratio 14.8 (10.0-20.0)
== END | disposition home or self-care (01) ==
LOC: LAB 10:12
PROVIDERS: ATTEND Internal Medicine
DX: E11.22 Type 2 diabetes mellitus with diabetic chronic kidney disease (principal); N18.30 Chronic kidney disease, stage 3 unspecified
CPT/HCPCS: 36415; 80048; 82043; 82570; 83036

== ENCOUNTER 2024-03-05 12:02 | Inpatient (IN) | payer BC, MEDICAID ==
[~2024-03-05] VITALS: Ht 165.1 cm; Wt 109.7 kg
[2024-03-05 13:00] LABS: Basophils # (auto) 0.1 10 ^3/uL (0-0.2); Basophils % (auto) 2.2 % (0.0-2.0); Eosinophils # (auto) 0.2 10 ^3/uL (0-0.8); Eosinophils % (auto) 3.9 % (0.0-7.0); Hematocrit 51.5 % (41.0-53.0); Hemoglobin 17.6 g/dL (13.5-17.5); Lymphocytes # (auto) 1.7 10 ^3/uL (0.4-5.4); Lymphocytes % (auto) 26.9 % (10.0-50.0); Mean Corpuscular Hemoglobin 32.1 pg (28.0-32.0); Mean Corpuscular Hgb Conc. 34.1 g/dL (32.0-36.0); Monocytes # (auto) 0.5 10 ^3/uL (0-1.3); Monocytes % (auto) 8.2 % (0.0-12.0); Neutrophils # (auto) 3.7 10 ^3/uL (1.6-8.6); Neutrophils % (auto) 58.8 % (37.0-80.0); Nucleated Red Blood Cells % 0.2 %; Red Blood Cells 5.48 10^6/uL (4.5-5.90); Red Cell Distribution Width 17.9 % (11.8-14.3); White Blood Cell 6.3 10^3/uL (4.4-10.8)
[2024-03-05 13:07] LABS: Urine Bacteria None Seen /hpf (None Seen)
[2024-03-05 13:18] LABS: Alanine Aminotransferase 67 U/L (7-40); Albumin 3.8 g/dL (3.2-4.8); Alkaline Phosphatase 112 U/L (46-116); Anion Gap 8 (5-15); Aspartate Aminotransferase 58 U/L (13-40); BUN/Creatinine Ratio 12.9 (10.0-20.0); Bilirubin, Total 1.1 mg/dL (0.2-1.0); Blood Urea Nitrogen 24 mg/dL (9-23); Calcium 9.7 mg/dL (8.7-10.4); Carbon Dioxide 16 mmol/L (20-30); Chloride 112 mmol/L (98-107); Glucose 220 mg/dL (74-106); Potassium 4.9 mmol/L (3.5-5.1); Sodium 136 mmol/L (136-145)
[2024-03-05 13:19] LABS: Total Protein 7.2 g/dL (5.7-8.2)
[2024-03-05 13:30] LABS: Urine Blood TRACE /uL (Negative); Urine Clarity Clear (Clear); Urine Color Yellow (Yellow); Urine Hyaline Cast FEW /lpf (0 - 2); Urine Mucus FEW (None Seen); Urine Protein, UAD 2+ (Negative); Urine Urobilinogen Normal (Negative); Urine WBC 16 /hpf (0 - 3)
[2024-03-05] MEDS ORDERED: AMLO1TAB23 PO (14:13)
[2024-03-05] MEDS ORDERED: CARV6.2551 PO (14:13)
[2024-03-05] MEDS ORDERED: ATOR20TA50 PO (14:13)
[2024-03-05] MEDS ORDERED: LISI20TA56 PO (14:13)
[2024-03-05] MEDS ORDERED: DEXTROSE (50%) 50ML SYRG IV PRN (14:15)
[2024-03-05 14:55] LABS: Triglycerides 151 mg/dL (< 150)
[2024-03-05 14:56] LABS: LDL Cholesterol 153 mg/dL (< 100)
[2024-03-05 14:57] LABS: Cholesterol 233 mg/dL (< 200); HDL Cholesterol 52 mg/dL (40-59)
[2024-03-05] MEDS: InsuLIN REG 1unit/0.01ml Soln (100units/ml) SC SCH (17:00)
[2024-03-05] MEDS: ACCU-CHEK COMFORT CURVE STRIP VI SCH (17:07)
[2024-03-05] MEDS: SODIUM CHLORIDE 0.9% 1,000 ML IV SCH (17:07)
[2024-03-05] MEDS: rifAXIMin 550 MG TAB PO SCH (22:45)
[2024-03-05] MEDS: CARVEDILOL 3.125 MG TAB PO SCH (22:45)
[2024-03-05] MEDS: INSULIN LANTUS (GLARGINE) 1 /0.01ml (100units/ml) SC SCH (23:01)
[2024-03-05] MEDS: LACTULOSE 20Gm/30ML SOLN PO SCH (23:01)
[2024-03-05] MEDS ORDERED: FINE20TA PO (23:12)
[2024-03-05] MEDS ORDERED: DAPA1TAB4 PO (23:12)
[2024-03-05] MEDS ORDERED: CEPH250C PO (23:13)
[2024-03-05 23:58] VITALS: BP 127/59; PULSE 61; RESP 19; TEMP 97.8; O2SAT 94
[2024-03-06 01:12] VITALS: BP 106/57; PULSE 57; RESP 19; TEMP 97.5; O2SAT 93
[2024-03-06 05:21] VITALS: BP 102/63; PULSE 56; RESP 19; TEMP 97.9; O2SAT 92
[2024-03-06 05:51] LABS: Basophils # (auto) 0.1 10 ^3/uL (0-0.2); Basophils % (auto) 1.4 % (0.0-2.0); Eosinophils # (auto) 0.3 10 ^3/uL (0-0.8); Eosinophils % (auto) 3.4 % (0.0-7.0); Hematocrit 46.8 % (41.0-53.0); Hemoglobin 16.2 g/dL (13.5-17.5); Lymphocytes # (auto) 2.5 10 ^3/uL (0.4-5.4); Lymphocytes % (auto) 33.6 % (10.0-50.0); Mean Corpuscular Hemoglobin 31.9 pg (28.0-32.0); Mean Corpuscular Hgb Conc. 34.5 g/dL (32.0-36.0); Mean Corpuscular Volume 92.3 fL (80.0-100.0); Monocytes # (auto) 0.8 10 ^3/uL (0-1.3); Monocytes % (auto) 10.8 % (0.0-12.0); Neutrophils # (auto) 3.8 10 ^3/uL (1.6-8.6); Neutrophils % (auto) 50.8 % (37.0-80.0); Nucleated Red Blood Cells % 0.1 %; Red Blood Cells 5.07 10^6/uL (4.5-5.90); Red Cell Distribution Width 18.3 % (11.8-14.3); White Blood Cell 7.5 10^3/uL (4.4-10.8)
[2024-03-06 06:08] LABS: Alanine Aminotransferase 56 U/L (7-40); Albumin 3.4 g/dL (3.2-4.8); Alkaline Phosphatase 98 U/L (46-116); Anion Gap 7 (5-15); Aspartate Aminotransferase 30 U/L (13-40); BUN/Creatinine Ratio 13.7 (10.0-20.0); Blood Urea Nitrogen 25 mg/dL (9-23); Calcium 9.2 mg/dL (8.7-10.4); Carbon Dioxide 20 mmol/L (20-30); Chloride 111 mmol/L (98-107); Glucose 86 mg/dL (74-106); Potassium 4.4 mmol/L (3.5-5.1); Sodium 138 mmol/L (136-145); Total Protein 6.3 g/dL (5.7-8.2)
[2024-03-06 08:00] VITALS: PULSE 67; RESP 18
[2024-03-06 08:58] VITALS: BP 134/72; PULSE 61; RESP 19; TEMP 98.1; O2SAT 99
[2024-03-06] MEDS: PANTOPRAZOLE 40 MG TAB PO SCH (09:50)
[2024-03-06 12:30] VITALS: BP 121/70; PULSE 56; RESP 17; TEMP 97.9; O2SAT 94
[2024-03-06] MEDS ORDERED: ATOR-507 PO (13:48)
[2024-03-06] MEDS ORDERED: SILD100T PO (13:54)
[2024-03-06] MEDS ORDERED: LACT10SO60 PO ×2 (13:54→14:26)
[2024-03-06] MEDS ORDERED: INSUINJ37 SC (13:54)
[2024-03-06] MEDS ORDERED: FLUO20CA90 PO (13:54)
[2024-03-06] MEDS ORDERED: RIFA550T PO (14:26)
[2024-03-06 16:51] VITALS: BP 122/70; PULSE 57; RESP 16; TEMP 98; O2SAT 96
== END 2024-03-06 18:50 | disposition home or self-care (01) | DRG 432 ==
LOC: ER 12:05 → OVERFLOW 14:12 → WEST WING 22:29
PROVIDERS: ADMIT Internal Medicine; ATTEND Internal Medicine
DX: K74.60 Unspecified cirrhosis of liver (principal); N17.0 Acute kidney failure with tubular necrosis; I13.0 Hypertensive heart and chronic kidney disease with heart failure and stage 1 through stage 4 chronic kidney disease, or unspecified chronic kidney disease; I50.30 Unspecified diastolic (congestive) heart failure; Z68.41 Body mass index [BMI] 40.0-44.9, adult; K76.82 Hepatic encephalopathy; N18.32 Chronic kidney disease, stage 3b; E11.22 Type 2 diabetes mellitus with diabetic chronic kidney disease; E78.5 Hyperlipidemia, unspecified; E66.9 Obesity, unspecified; K21.9 Gastro-esophageal reflux disease without esophagitis; E11.65 Type 2 diabetes mellitus with hyperglycemia; E87.8 Other disorders of electrolyte and fluid balance, not elsewhere classified; Z90.49 Acquired absence of other specified parts of digestive tract
CPT/HCPCS: 36415; 80053; 80061; 81001; 82140; 82962; 83036; 85025; 93005; 97163; 99291; G0378; J1815

== ENCOUNTER 2024-07-19 21:42 | Inpatient (IN) | payer MEDICAID ==
[~2024-07-19] VITALS: Ht 167.6 cm; Wt 94.0 kg
[~2024-07-19 21:42] MED LIST changes: -AMLO1TAB22 PO; +AMLO1TAB23 PO; +ATOR-507 PO; -CARV3.1240 PO; +CARV6.2551 PO; +DAPA1TAB4 PO; +FINE20TA PO; +FLUO-470 PO; -INSUINJ18 SC; +INSUINJ37 SC; -LACT10SO3 PO; +LACT10SO60 PO; +LISI20TA56 PO; -PRO20T PO; +SILD100T PO
[2024-07-19 22:24] LABS: Basophils # (auto) 0.1 10 ^3/uL (0-0.2); Basophils % (auto) 0.9 % (0.0-2.0); Eosinophils # (auto) 0.3 10 ^3/uL (0-0.8); Eosinophils % (auto) 3.4 % (0.0-7.0); Hematocrit 51.1 % (41.0-53.0); Hemoglobin 17.5 g/dL (13.5-17.5); Lymphocytes # (auto) 1.8 10 ^3/uL (0.4-5.4); Mean Corpuscular Hgb Conc. 34.2 g/dL (32.0-36.0); Mean Corpuscular Volume 93.4 fL (80.0-100.0); Monocytes # (auto) 0.6 10 ^3/uL (0-1.3); Monocytes % (auto) 8.3 % (0.0-12.0); Neutrophils # (auto) 4.9 10 ^3/uL (1.6-8.6); Neutrophils % (auto) 63.4 % (37.0-80.0); Nucleated Red Blood Cells % 0.4 %; Platelet Count (auto) 171 10^3/uL (140-450); Red Blood Cells 5.47 10^6/uL (4.5-5.90); Red Cell Distribution Width 14.2 % (11.8-14.3); White Blood Cell 7.7 10^3/uL (4.4-10.8)
[2024-07-19 22:42] LABS: Alanine Aminotransferase 43 U/L (7-40); Albumin 4.6 g/dL (3.2-4.8); Alkaline Phosphatase 96 U/L (46-116); Anion Gap 11 (5-15); Aspartate Aminotransferase 17 U/L (13-40); BUN/Creatinine Ratio 12.8 (10.0-20.0); Blood Urea Nitrogen 45 mg/dL (9-23); Calcium 10.3 mg/dL (8.7-10.4); Carbon Dioxide 16 mmol/L (20-31); Chloride 106 mmol/L (98-107); Glucose 168 mg/dL (74-106); Magnesium 2.2 mg/dL (1.6-2.6); Potassium 5.5 mmol/L (3.5-5.1); Sodium 133 mmol/L (136-145)
[2024-07-19 22:43] LABS: Bilirubin, Total 1.6 mg/dL (0.2-1.0); Total Protein 7.9 g/dL (5.7-8.2)
[2024-07-19 22:46] LABS: Salicylate < 3.0 mg/dL (-30)
[2024-07-19] MEDS: CALCIUM GLUC 1,000mg/50ml-NS 50 ML IV ONE (23:00)
[2024-07-19] MEDS: FUROSEMIDE 40 MG/4 ML VIAL IV ONE (23:00)
[2024-07-19] MEDS: SODIUM BICARB 8.4% 50Meq/50ml SYR Vial IV ONE (23:00)
[2024-07-19] MEDS: LACTULOSE 20Gm/30ML SOLN PO ONE (23:05)
[2024-07-19] MEDS: ALBUTEROL SULF 2.5 MG/0.5ML(0.5%) NEB SOLN ONE (23:11)
[2024-07-19] MEDS: ALBUTEROL SULF 2.5 MG/0.5ML(0.5%) NEB SOLN NEB ONE (23:11)
[2024-07-20] VITALS (8 sets, daily range): BP systolic 119–143; BP diastolic 59–62; PULSE 57–67; RESP 16–20; TEMP 97.7–97.8; O2SAT 95–98
[2024-07-20] MEDS: PANTOPRAZOLE 40 MG/10 ML VIAL INJ IV ONE (00:45)
[2024-07-20] MEDS ORDERED: SODIUM CHLORIDE 0.9% 1,000 ML IV SCH (01:00)
[2024-07-20 01:01] LABS: Urine Bacteria None Seen /hpf (None Seen)
[2024-07-20] MEDS ORDERED: DEXTROSE (50%) 50ML SYRG IV PRN (01:15)
[2024-07-20 01:17] LABS: INR 1.14 (0.9-1.15); Partial Thromboplastin Time 30.5 SEC (24.5-34.5)
[2024-07-20 01:20] LABS: Urine Blood Negative /uL (Negative); Urine Clarity Clear (Clear); Urine Color Light-Yellow (Yellow); Urine Hyaline Cast MOD /lpf (0 - 2); Urine Mucus FEW (None Seen); Urine Protein, UAD TRACE (Negative); Urine Specific Gravity 1.011 (1.001-1.035); Urine Urobilinogen Normal (Negative); Urine WBC 17 /hpf (0 - 3); Urine pH 5.5 (5.0-9.0)
[2024-07-20 02:17] LABS: Amphetamine Screen, Urine Neg (NEGATIVE); Barbiturate Scree,Urine Neg (NEGATIVE); Benzodiazephine Screen, Urine Neg (NEGATIVE); Cannabinoid Screen, Urine Neg (NEGATIVE); Cocaine Screen, Urine Neg (NEGATIVE); Opiate Scree,Urine Neg (NEGATIVE); Phencyclidine Screen, Urine Neg (NEGATIVE)
[2024-07-20] MEDS: rifAXIMin 550 MG TAB PO SCH (02:30)
[2024-07-20] MEDS: ALBUMIN 25% 100 ML IV SCH (02:41)
[2024-07-20] MEDS: InsuLIN REG 1unit/0.01ml Soln (100units/ml) SC SCH ×2 (03:33→12:00)
[2024-07-20 05:34] LABS: Chloride 110 mmol/L (98-107); Potassium 3.8 mmol/L (3.5-5.1); Sodium 141 mmol/L (136-145)
[2024-07-20 05:35] LABS: Anion Gap 14 (5-15); Calcium 10.1 mg/dL (8.7-10.4); Carbon Dioxide 17 mmol/L (20-31)
[2024-07-20 05:40] LABS: BUN/Creatinine Ratio 17.2 (10.0-20.0); Blood Urea Nitrogen 54 mg/dL (9-23); Glucose 97 mg/dL (74-106)
[2024-07-20] MEDS: LACTULOSE 20Gm/30ML SOLN PO SCH (06:00)
[2024-07-20] MEDS: ACCU-CHEK COMFORT CURVE STRIP VI SCH (06:00)
[2024-07-20 06:19] LABS: Basophils # (auto) 0.1 10 ^3/uL (0-0.2); Eosinophils # (auto) 0.3 10 ^3/uL (0-0.8); Eosinophils % (auto) 4.1 % (0.0-7.0); Hematocrit 47.6 % (41.0-53.0); Hemoglobin 16.4 g/dL (13.5-17.5); Lymphocytes # (auto) 2.3 10 ^3/uL (0.4-5.4); Lymphocytes % (auto) 27.6 % (10.0-50.0); Mean Corpuscular Hgb Conc. 34.4 g/dL (32.0-36.0); Mean Corpuscular Volume 92.8 fL (80.0-100.0); Monocytes # (auto) 0.8 10 ^3/uL (0-1.3); Monocytes % (auto) 9.5 % (0.0-12.0); Neutrophils # (auto) 4.8 10 ^3/uL (1.6-8.6); Neutrophils % (auto) 57.8 % (37.0-80.0); Nucleated Red Blood Cells % 0.3 %; Platelet Count (auto) 148 10^3/uL (140-450); Red Blood Cells 5.12 10^6/uL (4.5-5.90); Red Cell Distribution Width 14.9 % (11.8-14.3); White Blood Cell 8.3 10^3/uL (4.4-10.8)
[2024-07-20 08:31] LABS: Hepatitis B Surface Antigen Negative (Negative)
[2024-07-20 08:52] LABS: Hepatitis C Antibody Negative (Negative)
[2024-07-20 09:48] LABS: Bilirubin, Total 1.5 mg/dL (0.2-1.0)
[2024-07-20] MEDS: PANTOPRAZOLE 40 MG/10 ML VIAL INJ IV SCH (10:40)
[2024-07-20] MEDS: FUROSEMIDE 40 MG TAB PO SCH (10:41)
[2024-07-20] MEDS: SPIRONOLACTONE 25 MG TAB PO SCH (10:42)
[2024-07-20] MEDS: CARVEDILOL 3.125 MG TAB PO SCH (10:42)
[2024-07-20] MEDS ORDERED: SPIR1TAB22 PO (11:43)
[2024-07-20] MEDS ORDERED: FURO40TA4 PO (11:43)
[2024-07-20] MEDS ORDERED: INSU100I4 SC (11:43)
[2024-07-20] MEDS ORDERED: CHOL20007 PO (11:43)
[2024-07-20 12:09] LABS: Protein, Urine 30.2 mg/dL (1-14)
[2024-07-20 12:12] LABS: Creatinine, Urine 112.49 mg/dL (30.0-125.0)
[2024-07-21 01:00] VITALS: BP 130/68; PULSE 59; RESP 18; TEMP 98.7; O2SAT 95
[2024-07-21 05:00] VITALS: BP 142/59; PULSE 60; RESP 18; TEMP 97.6
[2024-07-21 06:23] LABS: Eosinophils # (auto) 0.5 10 ^3/uL (0-0.8); Eosinophils % (auto) 5.7 % (0.0-7.0); Platelet Count (auto) 157 10^3/uL (140-450); Red Cell Distribution Width 14.9 % (11.8-14.3)
[2024-07-21 06:30] LABS: Alanine Aminotransferase 41 U/L (7-40); Albumin 4.5 g/dL (3.2-4.8); Alkaline Phosphatase 93 U/L (46-116); Anion Gap 13 (5-15); Aspartate Aminotransferase 25 U/L (13-40); BUN/Creatinine Ratio 17.8 (10.0-20.0); Calcium 10.4 mg/dL (8.7-10.4); Carbon Dioxide 17 mmol/L (20-31); Chloride 111 mmol/L (98-107); Glucose 123 mg/dL (74-106); Potassium 4.3 mmol/L (3.5-5.1); Sodium 141 mmol/L (136-145)
[2024-07-21 06:31] LABS: Bilirubin, Total 2.1 mg/dL (0.2-1.0); Total Protein 7.9 g/dL (5.7-8.2)
[2024-07-21 06:32] LABS: Blood Urea Nitrogen 43 mg/dL (9-23)
[2024-07-21 06:36] LABS: Basophils # (auto) 0.1 10 ^3/uL (0-0.2); Basophils % (auto) 1.3 % (0.0-2.0); Hematocrit 51.4 % (41.0-53.0); Hemoglobin 17.8 g/dL (13.5-17.5); Lymphocytes # (auto) 2.7 10 ^3/uL (0.4-5.4); Lymphocytes % (auto) 32.3 % (10.0-50.0); Mean Corpuscular Hemoglobin 32.3 pg (28.0-32.0); Mean Corpuscular Hgb Conc. 34.6 g/dL (32.0-36.0); Mean Corpuscular Volume 93.2 fL (80.0-100.0); Monocytes # (auto) 1.1 10 ^3/uL (0-1.3); Monocytes % (auto) 12.8 % (0.0-12.0); Neutrophils % (auto) 47.9 % (37.0-80.0); Nucleated Red Blood Cells % 0.5 %; Red Blood Cells 5.52 10^6/uL (4.5-5.90); White Blood Cell 8.4 10^3/uL (4.4-10.8)
[2024-07-21 08:00] VITALS: PULSE 56; PULSE 62; RESP 18; O2SAT 95
[2024-07-21 09:00] VITALS: BP 125/76; PULSE 62; RESP 18; TEMP 98; O2SAT 95
[2024-07-21 11:09] LABS: INR 1.18 (0.9-1.15); Partial Thromboplastin Time 30.2 SEC (24.5-34.5); Prothrombin Time 12.4 sec (9.3-11.8)
[2024-07-21] MEDS ORDERED: SPIR25TA PO (12:32)
[2024-07-21 13:00] VITALS: BP 141/89; PULSE 61; RESP 18; TEMP 98.4; O2SAT 96
[2024-07-21 13:19] LABS: Rapid Influenza A Negative (Negative); Rapid Influenza B Negative (Negative)
[2024-07-21 13:24] LABS: COVID19 ANTIGEN SOFIA FIA NEGATIVE (NEGATIVE)
[2024-07-21 13:32] VITALS: BP 125/76; PULSE 62; RESP 18; TEMP 98; O2SAT 95
== END 2024-07-21 16:04 | disposition home or self-care (01) | DRG 441 ==
LOC: ER 21:42 → TELE 23:56 → TELE-WESTW 07-20 06:52
PROVIDERS: ADMIT Internal Medicine; ATTEND Internal Medicine
DX: K76.82 Hepatic encephalopathy (principal); G93.41 Metabolic encephalopathy; K76.7 Hepatorenal syndrome; N17.0 Acute kidney failure with tubular necrosis; I13.0 Hypertensive heart and chronic kidney disease with heart failure and stage 1 through stage 4 chronic kidney disease, or unspecified chronic kidney disease; E72.20 Disorder of urea cycle metabolism, unspecified; K76.6 Portal hypertension; I50.32 Chronic diastolic (congestive) heart failure; K70.30 Alcoholic cirrhosis of liver without ascites; K21.9 Gastro-esophageal reflux disease without esophagitis; E87.5 Hyperkalemia; E11.22 Type 2 diabetes mellitus with diabetic chronic kidney disease; N18.32 Chronic kidney disease, stage 3b; I48.0 Paroxysmal atrial fibrillation; D69.59 Other secondary thrombocytopenia; F10.20 Alcohol dependence, uncomplicated; Z79.899 Other long term (current) drug therapy; Y90.9 Presence of alcohol in blood, level not specified
CPT/HCPCS: 36415; 70450; 71045; 76700; 80048; 80053; 80307; 80320; 80329; 81001; 82010; 82140; 82247; 82306; 82570; 82607; 82962; 83036; 83605; 83735; 83880; 83935; 84075; 84132; 84156; 84300; 84443; 84450; 84460; 84484; 85025; 85610; 85730; 86803; 87081; 87340; 87426; 87804; 93005; 93306; 94640; 96365; 96375; 99291; G0378; J1815; J2470; P9047

== ENCOUNTER 2024-07-23 19:25 | Inpatient (IN) | payer MEDICAID ==
[~2024-07-23] VITALS: Ht 167.6 cm; Wt 96.7 kg
[~2024-07-23 19:25] MED LIST changes: +CHOL20007 PO; -FINE20TA PO; -FLUO-470 PO; +FURO40TA4 PO; +INSU100I4 SC; -SILD100T PO; +SPIR25TA PO
[2024-07-23 20:48] LABS: Basophils # (auto) 0.1 10 ^3/uL (0-0.2); Hemoglobin 18.3 g/dL (13.5-17.5); Monocytes # (auto) 0.7 10 ^3/uL (0-1.3); Neutrophils # (auto) 4.9 10 ^3/uL (1.6-8.6)
[2024-07-23 20:51] LABS: Eosinophils # (auto) 0.4 10 ^3/uL (0-0.8); Eosinophils % (auto) 4.6 % (0.0-7.0); Hematocrit 52.5 % (41.0-53.0); Lymphocytes # (auto) 1.9 10 ^3/uL (0.4-5.4); Lymphocytes % (auto) 24.3 % (10.0-50.0); Mean Corpuscular Hemoglobin 32.1 pg (28.0-32.0); Mean Corpuscular Hgb Conc. 34.9 g/dL (32.0-36.0); Monocytes % (auto) 8.2 % (0.0-12.0); Neutrophils % (auto) 61.9 % (37.0-80.0); Nucleated Red Blood Cells % 0.1 %; Platelet Count (auto) 206 10^3/uL (140-450); Red Cell Distribution Width 14.7 % (11.8-14.3)
[2024-07-23 20:52] LABS: Urine Bacteria FEW /hpf (None Seen); Urine Blood Negative /uL (Negative); Urine Clarity Turbid (Clear); Urine Color Yellow (Yellow); Urine Hyaline Cast MOD /lpf (0 - 2); Urine Mucus FEW (None Seen); Urine Protein, UAD 1+ (Negative); Urine Urobilinogen Normal (Negative); Urine WBC 209 /hpf (0 - 3); Urine WBC Clumps PRESENT /hpf (None Seen); Urine pH 5.5 (5.0-9.0)
[2024-07-23 21:04] LABS: INR 1.15 (0.9-1.15); Partial Thromboplastin Time 29.2 SEC (24.5-34.5); Prothrombin Time 12.1 sec (9.3-11.8)
[2024-07-23 21:10] LABS: Alanine Aminotransferase 59 U/L (7-40); Albumin 4.7 g/dL (3.2-4.8); Alkaline Phosphatase 114 U/L (46-116); Anion Gap 13 (5-15); Aspartate Aminotransferase 26 U/L (13-40); BUN/Creatinine Ratio 21.3 (10.0-20.0); Bilirubin, Total 2.1 mg/dL (0.2-1.0); Blood Urea Nitrogen 77 mg/dL (9-23); Calcium 10.9 mg/dL (8.7-10.4); Carbon Dioxide 15 mmol/L (20-31); Chloride 108 mmol/L (98-107); Glucose 191 mg/dL (74-106); Total Protein 8.1 g/dL (5.7-8.2)
[2024-07-23 21:14] LABS: Sodium 136 mmol/L (136-145)
[2024-07-23 21:15] LABS: Potassium 5.7 mmol/L (3.5-5.1)
[2024-07-23 22:01] VITALS: PULSE 53; RESP 18; O2SAT 97
[2024-07-23] MEDS ORDERED: DEXTROSE (50%) 50ML SYRG IV PRN ×2 (22:45→23:45)
[2024-07-23] MEDS: ONDANSETRON HCL 4 MG/2 ML VIAL IV ONE (22:45)
[2024-07-23] MEDS: SODIUM ZIRCONIUM CYCL 10 GM PAK PO ONE (23:30)
[2024-07-23] MEDS: SODIUM BICARB 8.4% 50Meq/50ml SYR Vial IV ONE (23:30)
[2024-07-23] MEDS ORDERED: ONDANSETRON HCL 4 MG/2 ML VIAL IV PRN (23:45)
[2024-07-23] MEDS ORDERED: NITROGLYCERIN 0.4 MG SL TAB SL PRN (23:45)
[2024-07-23] MEDS ORDERED: MORPHINE SULFATE INJ 2 MG/ml SYRG IV PRN (23:45)
[2024-07-24] MEDS: CALCIUM GLUC 1,000mg/50ml-NS 50 ML IV ONE (00:25)
[2024-07-24] MEDS: cefTRIAXone 1GM/50ML D5W 50 ML IV ONE (00:25)
[2024-07-24] MEDS: LACTULOSE 20Gm/30ML SOLN PO SCH ×2 (00:26→23:13)
[2024-07-24] MEDS: InsuLIN REG 1unit/0.01ml Soln (100units/ml) IV ONE (00:47)
[2024-07-24] MEDS: DEXTROSE (50%) 50ML SYRG IV ONE (00:50)
[2024-07-24 04:47] LABS: Chloride 110 mmol/L (98-107); Potassium 3.9 mmol/L (3.5-5.1); Sodium 139 mmol/L (136-145)
[2024-07-24 04:48] LABS: Anion Gap 12 (5-15); Carbon Dioxide 17 mmol/L (20-31)
[2024-07-24 04:53] LABS: BUN/Creatinine Ratio 19.2 (10.0-20.0); Glucose 90 mg/dL (74-106)
[2024-07-24 05:13] LABS: Blood Urea Nitrogen 62 mg/dL (9-23)
[2024-07-24] MEDS: PANTOPRAZOLE 40 MG TAB PO SCH (06:34)
[2024-07-24] MEDS: ACCU-CHEK COMFORT CURVE STRIP VI SCH (06:47)
[2024-07-24] MEDS: InsuLIN REG 1unit/0.01ml Soln (100units/ml) SC SCH (06:47)
[2024-07-24] MEDS ORDERED: InsuLIN REG 1unit/0.01ml Soln (100units/ml) SC SCH ×2 (07:00→22:00)
[2024-07-24] MEDS ORDERED: ACCU-CHEK COMFORT CURVE STRIP VI SCH (07:00)
[2024-07-24 08:39] VITALS: PULSE 68; RESP 14; O2SAT 96
[2024-07-24] MEDS: CARVEDILOL 3.125 MG TAB PO SCH (09:21)
[2024-07-24] MEDS: rifAXIMin 550 MG TAB PO SCH (09:21)
[2024-07-24] MEDS: SPIRONOLACTONE 25 MG TAB PO SCH (09:22)
[2024-07-24] MEDS: cefTRIAXone 1GM/50ML D5W 50 ML IV SCH (09:45)
[2024-07-24 13:49] LABS: Protein, Urine 23.2 mg/dL (1-14)
[2024-07-24 13:52] LABS: Creatinine, Urine 87.31 mg/dL (30.0-125.0); Urine Protein/Creatinine Ratio 0.27
[2024-07-24] MEDS: SODIUM BICARB 50mEq/50ml Vial 50 ML in SOD CHL 0.45% 1,000 ML IV SCH (14:58)
[2024-07-24 21:00] VITALS: BP 126/76; PULSE 63; RESP 19; TEMP 98.1; O2SAT 97
[2024-07-24 22:13] VITALS: PULSE 63; RESP 19; O2SAT 97
[2024-07-24] MEDS ORDERED: DAPA1TAB4 PO (22:35)
[2024-07-24] MEDS ORDERED: DAPA1TAB PO (22:35)
[2024-07-24] MEDS: ATORVASTATIN 20 MG TAB PO SCH (23:13)
[2024-07-25] VITALS (8 sets, daily range): BP systolic 103–125; BP diastolic 42–71; PULSE 47–69; RESP 16–20; TEMP 97.8–98.7; O2SAT 97–99
[2024-07-25 06:18] LABS: Basophils # (auto) 0.1 10 ^3/uL (0-0.2); Basophils % (auto) 1.4 % (0.0-2.0); Eosinophils # (auto) 0.6 10 ^3/uL (0-0.8); Hemoglobin 15.7 g/dL (13.5-17.5); Lymphocytes # (auto) 2.9 10 ^3/uL (0.4-5.4); Lymphocytes % (auto) 41.5 % (10.0-50.0); Mean Corpuscular Hemoglobin 32.2 pg (28.0-32.0); Mean Corpuscular Hgb Conc. 34.2 g/dL (32.0-36.0); Mean Corpuscular Volume 94.2 fL (80.0-100.0); Monocytes # (auto) 0.9 10 ^3/uL (0-1.3); Monocytes % (auto) 13.3 % (0.0-12.0); Neutrophils # (auto) 2.4 10 ^3/uL (1.6-8.6); Neutrophils % (auto) 34.8 % (37.0-80.0); Nucleated Red Blood Cells % 0.2 %; Platelet Count (auto) 145 10^3/uL (140-450); Red Blood Cells 4.89 10^6/uL (4.5-5.90); Red Cell Distribution Width 14.9 % (11.8-14.3); White Blood Cell 6.9 10^3/uL (4.4-10.8)
[2024-07-25 06:38] LABS: Alanine Aminotransferase 47 U/L (7-40); Albumin 3.8 g/dL (3.2-4.8); Alkaline Phosphatase 98 U/L (46-116); Anion Gap 11 (5-15); Aspartate Aminotransferase 26 U/L (13-40); BUN/Creatinine Ratio 19.3 (10.0-20.0); Calcium 9.3 mg/dL (8.7-10.4); Carbon Dioxide 19 mmol/L (20-31); Chloride 110 mmol/L (98-107); Glucose 118 mg/dL (74-106); Magnesium 2.5 mg/dL (1.6-2.6); Phosphorus 4.1 mg/dL (2.4-5.1); Potassium 4.4 mmol/L (3.5-5.1); Sodium 140 mmol/L (136-145); Total Protein 6.7 g/dL (5.7-8.2)
[2024-07-25 06:48] LABS: Blood Urea Nitrogen 47 mg/dL (9-23)
[2024-07-26 01:00] VITALS: BP 114/46; PULSE 64; RESP 20; TEMP 98; O2SAT 98
[2024-07-26 05:00] VITALS: BP 100/45; PULSE 61; RESP 20; TEMP 97.6; O2SAT 94
[2024-07-26 08:00] VITALS: PULSE 63
[2024-07-26 08:30] VITALS: BP 160/53; PULSE 64; RESP 20; TEMP 98.3; O2SAT 100
[2024-07-26 10:48] LABS: Chloride 107 mmol/L (98-107); Potassium 4.4 mmol/L (3.5-5.1); Sodium 136 mmol/L (136-145)
[2024-07-26 10:49] LABS: Anion Gap 7 (5-15); Calcium 8.6 mg/dL (8.7-10.4); Carbon Dioxide 22 mmol/L (20-31)
[2024-07-26 10:54] LABS: BUN/Creatinine Ratio 19.3 (10.0-20.0); Glucose 213 mg/dL (74-106)
[2024-07-26 10:59] LABS: Blood Urea Nitrogen 31 mg/dL (9-23)
[2024-07-26] MEDS ORDERED: CEPH250C PO (13:02)
[2024-07-26] MEDS ORDERED: LACT10SO60 PO (13:02)
[2024-07-26 16:30] VITALS: BP 139/72; PULSE 69; RESP 18; TEMP 98.1; O2SAT 99
[2024-07-26 17:29] VITALS: BP 110/60; PULSE 63
== END 2024-07-26 18:55 | disposition home or self-care (01) | DRG 441 ==
LOC: ER 19:25 → TELE 23:41 → UNDOADMIN 23:52 → TELE 23:52 → TELE-WESTW 07-24 20:45
PROVIDERS: ADMIT Nurse Practitioner; ATTEND Student in an Organized Health Care Education/Training Program
DX: K76.82 Hepatic encephalopathy (principal); K76.7 Hepatorenal syndrome; N17.0 Acute kidney failure with tubular necrosis; E87.20 Acidosis, unspecified; R18.8 Other ascites; I13.0 Hypertensive heart and chronic kidney disease with heart failure and stage 1 through stage 4 chronic kidney disease, or unspecified chronic kidney disease; N39.0 Urinary tract infection, site not specified; K74.60 Unspecified cirrhosis of liver; E78.5 Hyperlipidemia, unspecified; E87.5 Hyperkalemia; I50.9 Heart failure, unspecified; K21.9 Gastro-esophageal reflux disease without esophagitis; E11.22 Type 2 diabetes mellitus with diabetic chronic kidney disease; E86.0 Dehydration; N18.31 Chronic kidney disease, stage 3a; I25.2 Old myocardial infarction; Z90.49 Acquired absence of other specified parts of digestive tract; Z80.0 Family history of malignant neoplasm of digestive organs; Z80.8 Family history of malignant neoplasm of other organs or systems; Z82.49 Family history of ischemic heart disease and other diseases of the circulatory system; Z83.42 Family history of familial hypercholesterolemia; Z51.5 Encounter for palliative care
CPT/HCPCS: 36415; 76775; 80048; 80053; 81001; 82140; 82570; 82962; 83735; 84100; 84156; 84300; 85025; 85610; 85730; 87081; 93005; 96374; 96375; G0378; J1815; J2405

== ENCOUNTER → 2024-08-01 | Outpatient (CLI) | payer MEDICAID ==
[~2024-08-01] MED LIST changes: +CEPH250C PO; -CHOL20007 PO; -PANT40TA2 PO
[2024-08-01 11:04] LABS: Alanine Aminotransferase 59 U/L (7-40); Alkaline Phosphatase 125 U/L (46-116); Anion Gap 6 (5-15); BUN/Creatinine Ratio 18.8 (10.0-20.0); Blood Urea Nitrogen 49 mg/dL (9-23); Carbon Dioxide 18 mmol/L (20-31); Chloride 114 mmol/L (98-107); Glucose 185 mg/dL (74-106); Sodium 138 mmol/L (136-145)
[2024-08-01 11:05] LABS: Albumin 3.9 g/dL (3.2-4.8); Aspartate Aminotransferase 43 U/L (13-40); Bilirubin, Total 0.8 mg/dL (0.2-1.0)
[2024-08-01 11:06] LABS: Total Protein 6.9 g/dL (5.7-8.2)
[2024-08-01 11:29] LABS: Potassium 6.4 mmol/L (3.5-5.1)
== END | disposition home or self-care (01) ==
LOC: LAB 09:20
PROVIDERS: ATTEND Internal Medicine
DX: K74.60 Unspecified cirrhosis of liver (principal)
CPT/HCPCS: 36415; 80053; 82140

== ENCOUNTER → 2024-08-08 | Outpatient (CLI) | payer MEDICAID ==
[2024-08-08 11:34] LABS: Urine Bacteria None Seen /hpf (None Seen)
[2024-08-08 12:00] LABS: Urine Blood Negative /uL (Negative); Urine Clarity Clear (Clear); Urine Color Light-Yellow (Yellow); Urine Protein, UAD Negative (Negative); Urine Specific Gravity 1.009 (1.001-1.035); Urine Urobilinogen Normal (Negative); Urine WBC 1 /hpf (0 - 3)
[2024-08-08 12:11] LABS: Alanine Aminotransferase 62 U/L (7-40); Albumin 4.2 g/dL (3.2-4.8); Alkaline Phosphatase 116 U/L (46-116); Anion Gap 9 (5-15); Aspartate Aminotransferase 50 U/L (13-40); Blood Urea Nitrogen 42 mg/dL (9-23); Calcium 9.7 mg/dL (8.7-10.4); Carbon Dioxide 19 mmol/L (20-31); Chloride 110 mmol/L (98-107); Glucose 97 mg/dL (74-106); Magnesium 2.4 mg/dL (1.6-2.6); Potassium 4.3 mmol/L (3.5-5.1); Sodium 138 mmol/L (136-145); Total Protein 7.6 g/dL (5.7-8.2)
[2024-08-08 12:34] LABS: Basophils # (auto) 0.1 10 ^3/uL (0-0.2); Basophils % (auto) 1.4 % (0.0-2.0); Eosinophils # (auto) 0.6 10 ^3/uL (0-0.8); Eosinophils % (auto) 8.4 % (0.0-7.0); Hematocrit 43.9 % (41.0-53.0); Hemoglobin 15.2 g/dL (13.5-17.5); Lymphocytes # (auto) 2.1 10 ^3/uL (0.4-5.4); Lymphocytes % (auto) 29.4 % (10.0-50.0); Mean Corpuscular Hemoglobin 32.2 pg (28.0-32.0); Mean Corpuscular Hgb Conc. 34.7 g/dL (32.0-36.0); Mean Corpuscular Volume 92.8 fL (80.0-100.0); Monocytes # (auto) 0.6 10 ^3/uL (0-1.3); Monocytes % (auto) 8.2 % (0.0-12.0); Neutrophils # (auto) 3.8 10 ^3/uL (1.6-8.6); Neutrophils % (auto) 52.6 % (37.0-80.0); Nucleated Red Blood Cells % 0.1 %; Platelet Count (auto) 144 10^3/uL (140-450); Red Blood Cells 4.73 10^6/uL (4.5-5.90); Red Cell Distribution Width 14.4 % (11.8-14.3); White Blood Cell 7.2 10^3/uL (4.4-10.8)
[2024-08-08 12:35] LABS: Creatinine, Urine 52.94 mg/dL (30.0-125.0)
== END | disposition home or self-care (01) ==
LOC: LAB 11:23
PROVIDERS: ATTEND Internal Medicine Nephrology
DX: E11.21 Type 2 diabetes mellitus with diabetic nephropathy (principal); N39.0 Urinary tract infection, site not specified; E78.5 Hyperlipidemia, unspecified; N18.30 Chronic kidney disease, stage 3 unspecified; E21.3 Hyperparathyroidism, unspecified; M10.9 Gout, unspecified; R80.9 Proteinuria, unspecified; D63.1 Anemia in chronic kidney disease
CPT/HCPCS: 36415; 80053; 81001; 82043; 82570; 83036; 83735; 83970; 84443; 84550; 85025

== ENCOUNTER → 2024-09-04 | Outpatient (CLI) | payer MEDICAID ==
[2024-09-04 11:49] LABS: Alanine Aminotransferase 67 U/L (7-40); Albumin 3.6 g/dL (3.2-4.8); Alkaline Phosphatase 99 U/L (46-116); Anion Gap 8 (5-15); Aspartate Aminotransferase 45 U/L (13-40); BUN/Creatinine Ratio 11.9 (10.0-20.0); Bilirubin, Total 1.2 mg/dL (0.2-1.0); Blood Urea Nitrogen 19 mg/dL (9-23); Calcium 9.4 mg/dL (8.7-10.4); Carbon Dioxide 25 mmol/L (20-31); Chloride 111 mmol/L (98-107); Glucose 240 mg/dL (74-106); Potassium 3.4 mmol/L (3.5-5.1); Sodium 144 mmol/L (136-145); Total Protein 6.4 g/dL (5.7-8.2)
== END | disposition home or self-care (01) ==
LOC: LAB 11:21 → EDSTATUS 09-08 10:45
PROVIDERS: ATTEND Internal Medicine Gastroenterology
DX: Z01.812 Encounter for preprocedural laboratory examination (principal); K63.5 Polyp of colon
CPT/HCPCS: 36415; 80053; 82140

== ENCOUNTER → 2024-09-13 | Outpatient (CLI) | payer MEDICAID ==
[2024-09-13 08:23] LABS: Potassium 3.9 mmol/L (3.5-5.1); Sodium 140 mmol/L (136-145)
[2024-09-13 08:24] LABS: Anion Gap 6 (5-15); Calcium 9.5 mg/dL (8.7-10.4); Carbon Dioxide 26 mmol/L (20-31)
[2024-09-13 08:29] LABS: BUN/Creatinine Ratio 14.5 (10.0-20.0); Blood Urea Nitrogen 22 mg/dL (9-23)
[2024-09-13 08:34] LABS: Chloride 108 mmol/L (98-107); Glucose 281 mg/dL (74-106)
== END | disposition home or self-care (01) ==
LOC: LAB 08:02
PROVIDERS: ATTEND Internal Medicine
DX: K70.10 Alcoholic hepatitis without ascites (principal)
CPT/HCPCS: 36415; 80048; 82140

== ENCOUNTER → 2024-10-02 | Outpatient (CLI) | payer MEDICAID ==
[2024-10-02 12:01] LABS: Albumin 3.6 g/dL (3.2-4.8); Alkaline Phosphatase 99 U/L (46-116); Anion Gap 8 (5-15); Aspartate Aminotransferase 27 U/L (13-40); BUN/Creatinine Ratio 11.2 (10.0-20.0); Bilirubin, Total 1.2 mg/dL (0.2-1.0); Blood Urea Nitrogen 19 mg/dL (9-23); Calcium 9.4 mg/dL (8.7-10.4); Carbon Dioxide 22 mmol/L (20-31); Potassium 3.8 mmol/L (3.5-5.1); Sodium 138 mmol/L (136-145); Total Protein 6.3 g/dL (5.7-8.2)
[2024-10-02 12:06] LABS: Alanine Aminotransferase 43 U/L (7-40); Chloride 108 mmol/L (98-107); Glucose 232 mg/dL (74-106)
== END | disposition home or self-care (01) ==
LOC: LAB 10:55
PROVIDERS: ATTEND Internal Medicine
DX: K70.10 Alcoholic hepatitis without ascites (principal)
CPT/HCPCS: 36415; 80053; 82140

== ENCOUNTER → 2024-11-03 | Outpatient (CLI) | payer MEDICAID ==
[2024-11-03 09:57] LABS: Urine Bacteria None Seen /hpf (None Seen)
[2024-11-03 10:17] LABS: Basophils # (auto) 0.1 10 ^3/uL (0-0.2); Basophils % (auto) 1.2 % (0.0-2.0); Eosinophils # (auto) 0.4 10 ^3/uL (0-0.8); Eosinophils % (auto) 7.7 % (0.0-7.0); Hematocrit 47.2 % (41.0-53.0); Lymphocytes # (auto) 1.5 10 ^3/uL (0.4-5.4); Lymphocytes % (auto) 31.5 % (10.0-50.0); Mean Corpuscular Hemoglobin 31.5 pg (28.0-32.0); Mean Corpuscular Hgb Conc. 33.9 g/dL (32.0-36.0); Mean Corpuscular Volume 93.1 fL (80.0-100.0); Monocytes # (auto) 0.5 10 ^3/uL (0-1.3); Monocytes % (auto) 10.3 % (0.0-12.0); Neutrophils # (auto) 2.3 10 ^3/uL (1.6-8.6); Neutrophils % (auto) 49.3 % (37.0-80.0); Platelet Count (auto) 103 10^3/uL (140-450); Red Blood Cells 5.07 10^6/uL (4.5-5.90); Red Cell Distribution Width 15.5 % (11.8-14.3); White Blood Cell 4.7 10^3/uL (4.4-10.8)
[2024-11-03 10:21] LABS: Urine Blood Negative /uL (Negative); Urine Clarity Clear (Clear); Urine Color Colorless (Yellow); Urine Protein, UAD Negative (Negative); Urine Specific Gravity 1.006 (1.001-1.035); Urine Squamous Epithelial Cell FEW /hpf (<5); Urine Urobilinogen Normal (Negative); Urine WBC 2 /HPF (0-3); Urine pH 5.5 (5.0-9.0)
[2024-11-03 10:43] LABS: Alanine Aminotransferase 35 U/L (7-40); Alkaline Phosphatase 95 U/L (46-116); Anion Gap 10 (5-15); BUN/Creatinine Ratio 17.3 (10.0-20.0); Calcium 9.3 mg/dL (8.7-10.4); Carbon Dioxide 21 mmol/L (20-31); GFR African American 47 mL/min; GFR Non-African American 39 mL/min; Potassium 3.9 mmol/L (3.5-5.1); Sodium 138 mmol/L (136-145)
[2024-11-03 10:44] LABS: Albumin 3.9 g/dL (3.2-4.8); Aspartate Aminotransferase 24 U/L (13-40); Blood Urea Nitrogen 32 mg/dL (9-23); Chloride 107 mmol/L (98-107); Glucose 217 mg/dL (74-106)
[2024-11-03 10:45] LABS: Bilirubin, Total 1.1 mg/dL (0.2-1.0); Total Protein 6.7 g/dL (5.7-8.2)
[2024-11-03 10:46] LABS: Creatinine, Urine 18.63 mg/dL (30.0-125.0); Urine Protein/Creatinine Ratio 0.38
== END | disposition home or self-care (01) ==
LOC: LAB 09:30
PROVIDERS: ATTEND Internal Medicine
DX: E11.22 Type 2 diabetes mellitus with diabetic chronic kidney disease (principal); N18.30 Chronic kidney disease, stage 3 unspecified; D63.1 Anemia in chronic kidney disease; E11.21 Type 2 diabetes mellitus with diabetic nephropathy; N39.0 Urinary tract infection, site not specified; E21.3 Hyperparathyroidism, unspecified; E55.9 Vitamin D deficiency, unspecified; R80.9 Proteinuria, unspecified; M10.9 Gout, unspecified
CPT/HCPCS: 36415; 80053; 80069; 81001; 82570; 83970; 84156; 84550; 85025

== ENCOUNTER → 2024-11-27 | Outpatient (CLI) | payer MEDICAID ==
[2024-11-27 13:27] LABS: Anion Gap 10 (5-15); Aspartate Aminotransferase 21 U/L (13-40); BUN/Creatinine Ratio 15.2 (10.0-20.0); Calcium 9.6 mg/dL (8.7-10.4); Carbon Dioxide 22 mmol/L (20-31); Chloride 107 mmol/L (98-107); Potassium 3.9 mmol/L (3.5-5.1); Sodium 139 mmol/L (136-145)
[2024-11-27 13:28] LABS: Bilirubin, Total 0.9 mg/dL (0.2-1.0); Total Protein 6.7 g/dL (5.7-8.2)
[2024-11-27 13:41] LABS: Alanine Aminotransferase 52 U/L (7-40); Alkaline Phosphatase 117 U/L (46-116); Blood Urea Nitrogen 31 mg/dL (9-23); Glucose 129 mg/dL (74-106)
[2024-11-27 13:54] LABS: Creatinine, Urine 112.41 mg/dL (30.0-125.0)
== END | disposition home or self-care (01) ==
LOC: LAB 12:23
PROVIDERS: ATTEND Internal Medicine
DX: E11.22 Type 2 diabetes mellitus with diabetic chronic kidney disease (principal); N18.32 Chronic kidney disease, stage 3b
CPT/HCPCS: 36415; 80053; 82043; 82140; 82570

== ENCOUNTER → 2024-12-04 | Outpatient (CLI) | payer MEDICAID | END | disposition home or self-care (01) | LOC: LAB 08:31 | PROVIDERS: ATTEND Internal Medicine | DX: K74.60 Unspecified cirrhosis of liver (principal) | CPT/HCPCS: 82140 ==

== ENCOUNTER 2024-12-22 15:41 | Emergency (ER) | payer MEDICAID ==
[~2024-12-22] VITALS: Ht 165.1 cm; Wt 99.5 kg
--- NOTE | 2024-12-22 15:56 | ED.PDOC ---
GI ASSESSMENT HPI Comments 69Y M with PMHx DM, CHF, HTN, HLD, GERD, and cirrhosis presents to ED for chief complaint epigastric abd pain x3days with dizziness x1day. Pt describes abd pain as sharp. Pt states he took two Pantoprazole pills at home and that relieved the pain. Per pt, ammonia levels are elevated sometimes. Pt has f/u appt with PCP on 01/06/2025. No other symptoms reported. Time Seen by MD: 15:50 Primary Care Provider: [place] Reviewed Notes: Nurses Notes, Medications, Allergies Allergies: Coded Allergies: No Known Drug Allergy (Verified Allergy, Unknown, 05/04/19) Home Meds Active Scripts Cephalexin (KEFLEX CAPSULE) 250 Mg Cp, 500 MG PO BID for 5 Days, #20 CAP Prov:EMERALD ALCANTAR MD 07/26/24 Lactulose (Constulose) 10 Gm/15 Ml Candis, 30 ML PO Q6H for 30 Days, #3600 ML Prov:EMERALD ALCANTAR MD 07/26/24 Spironolactone (Aldactone) 25 Mg Tab, 100 MG PO DAILY for 60 Days, #240 TAB Prov:MARK ELIAS RESIDENT 07/21/24 Rifaximin (Xifaxan) 550 Mg Tab, 550 MG PO BID for 30 Days, #60 TAB Prov:SANAZ MARTINEZ RESIDENT 03/06/24 Reported Medications Insulin Lispro (Humalog Kwikpen) 100 Unit/Ml Inj, 100 UNIT SC, INJ 07/20/24 Furosemide (Furosemide) 40 Mg Tab, 1 TAB PO DAILY, #30 TAB 5 Refills 07/20/24 Insulin Glargine (Lantus Solostar) 100 Unit/Ml Inj, 35 UNIT SC BID 03/06/24 Atorvastatin Calcium (Lipitor) 40 Mg Tab, 1 TAB PO DAILY 03/06/24 Dapagliflozin Propanediol (Farxiga) 10 Mg Tab, 10 MG PO DAILY, TAB 03/05/24 Amlodipine Besylate (Amlodipine Besylate) 10 Mg Tab, 1 TAB PO DAILY 03/05/24 Lisinopril (Lisinopril) 20 Mg Tab, 1 TAB PO DAILY 03/05/24 Carvedilol (Carvedilol) 6.25 Mg Tab, 1 TAB PO BID 03/05/24 Glipizide (Glipizide Er) 10 Mg Tab, 10 MG PO BID, TAB 01/16/19 Information Source: Patient Mode of Arrival: Ambulatory Timing: Days Duration: Since onset Prehospital treatment: None Quality: Sharp Vomitus: None Stool: Normal Severity: Mild Recent: None Recent Hx of: None Pain Location: Epigastric Modifying Factors: Antacids Associated sign and symptoms: Abdominal Pain, Other Past Medical History PAST MEDICAL HISTORY: CHF, DM, GERD, High Lipids, HTN, Liver, [place] Surgical History: Appendectomy Family History Family History: Reviewed,noncontributory to illness, Unknown Social History Smoker: Non-Smoker Alcohol: Sober Drugs: Denies Drug Use Lives In: Home Constitutional: denies: chills, diaphoresis, fatigue, fever, malaise, sweats, weakness, others EENTM: denies: blurred vision, double vision, ear bleeding, ear discharge, ear drainage, ear pain, ear ringing, eye pain, eye redness, hearing loss, mouth pain, mouth swelling, nasal discharge, nose bleeding, nose congestion, nose pain, photophobia, tearing, throat pain, throat swelling, voice changes, others Respiratory: denies: cough, hemoptysis, orthopnea, SOB at rest, shortness of breath, SOB with excertion, stridor, wheezing, others Cardiovascular: denies: chest pain, dizzy spells, diaphoresis, Dyspnea on exertion, edema, irregular heart beat, left arm pain, lightheadedness, palpitations, PND, syncope, others Gastrointestinal: reports: abdominal pain; denies: abdomen distended, blood streaked bowels, constipated, diarrhea, dysphagia, difficulty swallowing, hematemesis, melena, nausea, poor appetite, poor fluid intake, rectal bleeding, rectal pain, vomiting, others Genitourinary: denies: burning, dysuria, flank pain, frequency, hematuria, incontinence, penile discharge, penile sore, pain, testicle pain, testicle swelling, urgency, others Neurological: reports: dizziness; denies: fainting, headache, left sided numbness, left sided weakness, numbness, paresthesia, pre-existing deficit, right sided numbness, right sided weakness, seizure, speech problems, tingling, tremors, weakness, others Musculoskeletal: denies: back pain, gout, joint pain, joint swelling, muscle pain, muscle stiffness, neck pain, others Integumetry: denies: bruises, change in color, change in hair/nails, dryness, laceration, lesions, lumps, rash, wounds, others Allergic/Immunocompromised: denies: Difficulty Healing, Frequent Infections, Hives, Itching, others Hematologic/Lymphatic: denies: anemia, blood clots, easy bleeding, easy bruising, swollen glands, others Endocrine: denies: excessive hunger, excessive sweating, excessive thirst, excessive urination, flushing, intolerance to cold, intolerance to heat, unexplained weight gain, unexplained weight loss, others Psychiatric: denies: anxiety, bipolar disorder, depression, hopeless, panic disorder, schizophrenia, sleepless, suicidal, others All Other Systems: Reviewed and Negative Physical Exam General Appearance: Moderate Distress ([id number] distress due to belly pain concerns.), Obese HEENT: Normal ENT Inspection, Pharynx Normal, TMs Normal Neck: Full Range of Motion, Non-Tender, Normal, Normal Inspection Respiratory: Chest Non-Tender, Lungs Clear, No Accessory Muscle Use, No Respiratory Distress, Normal Breath Sounds Cardiovascular: No Edema, No JVD, No Murmur, No Gallop, Normal Peripheral Pulses, Regular Rate/Rhythm Breast Exam: Deferred Gastrointestinal: No Pulsatile Mass, Normal Bowel Sounds, Soft, Other ( Diffuse tenderness to palpation throughout the epigastric region. Difficult to assess due to body habitus. No pulsatile masses appreciated.) Genitalia: Deferred Pelvic: Deferred Rectal: Deferred Extremities: No calf tenderness, Normal capillary refill, Normal inspection, Normal range of motion, Non-tender, No pedal edema Musculoskeletal : Apperance: Normal Neurologic: Alert, No Motor Deficits, Normal Affect, Normal Mood, No Sensory Deficits Cerebellar Function: Normal Reflexes: Normal Skin: Dry, Normal Color, Warm Lymphatic: No Adenopathy Was a procedure done? Was a procedure done?: No GI differential Dx Differential Diagnosis: Gastritis/PUD, Gastroenteritis, Other ( Sepsis, electrolyte abnormality, CHF, cirrhosis, pancreatitis, acute coronary event) X-Ray, Labs, Meds, VS Vital Signs Date Time Temp Pulse Resp B/P (MAP) Pulse Ox O2 Delivery O2 Flow Rate FiO2 12/22/24 16:39 58 16 95 Room Air 12/22/24 16:39 97.8 58 16 144/72 (96) 95 97.8 12/22/24 16:02 59 12/22/24 15:59 98.4 62 18 126/71 (89) 97 98.4 Lab Test 12/22/24 16:58 12/22/24 16:00 Range/Units White Blood Count 6.6 4.4-10.8 10^3/uL Red Blood Count 5.51 4.5-5.90 10^6/uL Hemoglobin 17.2 13.5-17.5 g/dL Hematocrit 51.7 41.0-53.0 % Mean Corpuscular Volume 93.7 80.0-100.0 fL Mean Corpuscular Hemoglobin 31.2 28.0-32.0 pg Mean Corpuscular Hemoglobin Concent 33.3 32.0-36.0 g/dL Red Cell Distribution Width 17.4 H 11.8-14.3 % Platelet Count 139 L 140-450 10^3/uL Mean Platelet Volume 10.6 6.9-10.8 fL Neutrophils (%) (Auto) 60.0 37.0-80.0 % Lymphocytes (%) (Auto) 22.1 10.0-50.0 % Monocytes (%) (Auto) 11.2 0.0-12.0 % Eosinophils (%) (Auto) 5.7 0.0-7.0 % Basophils (%) (Auto) 1.0 0.0-2.0 % Neutrophils # (Auto) 4.0 1.6-8.6 10 ^3/uL Lymphocytes # (Auto) 1.5 0.4-5.4 10 ^3/uL Monocytes # (Auto) 0.7 0-1.3 10 ^3/uL Eosinophils # (Auto) 0.4 0-0.8 10 ^3/uL Basophils # (Auto) 0.1 0-0.2 10 ^3/uL Nucleated Red Blood Cells 0.5 % Sodium Level 140 136-145 mmol/L Potassium Level 4.2 3.5-5.1 mmol/L Chloride Level 111 H 98-107 mmol/L Carbon Dioxide Level 20 20-31 mmol/L Anion Gap 9 5-15 Blood Urea Nitrogen 34 H 9-23 mg/dL Creatinine 2.09 H 0.700-1.30 mg/dL Glomerular Filtration Rate Calc 34 >90 mL/min BUN/Creatinine Ratio 16.3 10.0-20.0 Serum Glucose 86 74-106 mg/dL Calcium Level 9.2 8.7-10.4 mg/dL Total Bilirubin 1.1 H 0.2-1.0 mg/dL Aspartate Amino Transferase (AST) 53 H 13-40 U/L Alanine Aminotransferase (ALT) 98 H 7-40 U/L Alkaline Phosphatase 134 H 46-116 U/L Troponin I High Sensitivity 8 </=54 ng/L Total Protein 6.9 5.7-8.2 g/dL Albumin 4.1 3.2-4.8 g/dL Lipase 304 H 12-53 U/L POC Glucose 96 70-106 mg/dl Current Medications Medications (Trade) Dose Ordered Sig/Tanya Route Start Time Stop Time Status Last Admin Al Hydrox/Mg Hydrox/Simethicone (Maalox Plus) 30 ml ONCE ONCE PO 12/22/24 16:00 12/22/24 16:01 DC 12/22/24 16:49 Lidocaine HCl (Xylocaine 2% Viscous) 3 ml ONCE ONCE PO 12/22/24 16:00 12/22/24 16:01 DC 12/22/24 16:49 Pantoprazole Sodium (Protonix Tablet) 40 mg ONCE ONCE PO 12/22/24 16:00 12/22/24 16:01 DC 12/22/24 16:49 [place] [id number] Ph: [phone] DIAGNOSTIC IMAGING Diagnostic Imaging Report : [id number] Signed PATIENT: DARELL SINCLAIR AACCT: [id number] UNIT: [id number] : 1955 LOC: ER ROOM / BED: / AGE / SEX: 69 / M ADM STATUS: REG ER SERVICE [id number] ORDERING PHYSICIAN: GUILLE MORALES PAC PROCEDURE(s): ABPL - CT AB PEL WO CON-NO ORAL OR IV REASON: Diffuse upper abdominal pain ORDER NUMBER(s): [id number], ACCESSION NUMBER(s): [id number] Exam: CT CT AB PEL WO CON-NO ORAL OR IV History: Diffuse upper abdominal pain Comparison Study: None available at time of dictation. TECHNIQUE: Multidetector CT of the abdomen was performed from lung bases to pubic symphysis. Imaging was performed without IV contrast. Axial, coronal and sagittal multiplanar reformats were obtained from the axial data set by the technologist. Radiation Dose Information: CT Dose: CTDI volume is 25.17 mGy. Dose-length product is 1343.52 mGy*cm FINDINGS: Evaluation of solid organs is limited due to lack of intravenous contrast use. Findings: Lung Bases: No acute or significant lung base finding. Normal heart size. No pleural or pericardial effusion. Liver: Nodular appearance of the surface of the liver. Gallbladder and Biliary Tree: Contracted no calcified gallstones Spleen: Unremarkable Pancreas: Possible edema of the pancreatic parenchyma no peripancreatic stranding no pseudocysts. Correlate with pancreatic lab values to exclude pancreatitis. Adrenal Glands: Unremarkable Kidneys: Kidneys are grossly normal without calculi or hydronephrosis. Bladder: Grossly unremarkable for degree of distention. Bowel: The stomach is grossly normal in appearance. Small bowel and colon are normal in caliber and distribution. The appendix is not visualized; however, no secondary findings of acute appendicitis identified. Ascites: Absent Lymphadenopathy: No mesenteric, retroperitoneal or periportal lymphadenopathy. Abdominal Wall and Mesentery: Unremarkable. Vasculature: The visualized abdominal aorta is normal in size and caliber. Evaluation of abdominal and pelvic vessels is limited due to lack of intravenous contrast. Pelvic Organs: Unremarkable Musculoskeletal: No aggressive focal bony lesions, acute fractures or dislocation. Soft tissues: Unremarkable IMPRESSION: 1. Somewhat nodular appearance of the surface of the liver 2. Possible edematous changes to the pancreatic parenchyma without peripancreatic stranding correlate with pancreatic enzymes. No pseudocyst. 3. No calcified gallstones gallbladder is contracted. 4. No nephrolithiasis or hydronephrosis. Radiation optimization: All CT scans at this facility use at least one of these dose optimization techniques: automated exposure control mA and/or kV adjustment per patient size (includes targeted exams where dose is matched to clinical indication) or iterative reconstruction. ATED BY: AD BATISTA Jr., DO DICTATED DATE/TIME: 12/22/241654 SIGNED BY: AD BATISTA Jr., SIGNED DATE/TIME: 12/22/241654 CC: X-Ray, Labs, Meds, VS Comment All studies performed the ED were evaluated by me personally. 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 EKG revealed a sinus rhythm with a rate of 59. Left anterior fascicular block as well as abnormal R-wave progression and left ventricular hypertrophy. IL interval 192 and QT interval of 459. I believe the patient has acute pancreatitis as well as his renal disease and cirrhotic concerns. Patient responded well to medication dispensed. Advised patient that he should use medication as directed and additionally, follow up in his primary care provider for discussions related to multiple abdominal comorbidities. Time of 1ST Reevaluation: 19:54 Reevaluation 1ST: Improved Consultation: PCP Patient Education/Counseling: Diagnosis, Treatment Family Education/Counseling: Diagnosis, Treatment, No Family Present Departure 1 Departure Time of Disposition: 19:54 Impression: Primary Impression: GERD (gastroesophageal reflux disease) Disposition: HOME / SELF CARE / HOMELESS Condition: Stable Additional Instructions: Advised patient utilize medication as directed until completion. Patient needs to follow up with his primary care provider for discussions related to multiple comorbidities including cirrhosis, pancreatitis and renal disease. e-Prescriptions Pantoprazole Sodium Sesquihydr (Protonix) 40 Mg Tab 40 MG PO DAILY, #30 TAB Prov: GUILLE MORALES PAC 12/22/24 Discharged With: Self, Friend Critical Care Note Critical Care Time?: No Stability Stability form required: No Heart Score Heart Score: Heart Score Response (Comments) Value History Slightly Suspicious 0 EKG Repolarization Disturb 1 Age >65 2 Risk Factors 1 or 2 risk factors 1 Troponin Normal limit 0 Total 4 I personally scribed for GUILLE MORALES PAC ([email or web address]) on 12/22/24 at 15:56. Electronically submitted by Charmaine Barth ([employer]). I personally scribed for GUILLE MORALES PAC ([email or web address]) on 12/22/24 at 17:05. Electronically submitted by Charmaine Barth ([employer]). GUILLE MORALES PAC Dec 22, 2024 15:56
[2024-12-22] MEDS: MAALOX PLUS or MAALOX 30 ML PO ONE (16:49)
[2024-12-22] MEDS: LIDOCAINE VISCOUS 2% 15ML UD PO ONE (16:49)
[2024-12-22] MEDS: PANTOPRAZOLE 40 MG TAB PO ONE (16:49)
--- NOTE | 2024-12-22 16:57 | DVH ---
Exam: CT CT AB PEL WO CON-NO ORAL OR IV History: Diffuse upper abdominal pain Comparison Study: None available at time of dictation. TECHNIQUE: Multidetector CT of the abdomen was performed from lung bases to pubic symphysis. Imaging was performed without IV contrast. Axial, coronal and sagittal multiplanar reformats were obtained fr om the axial data set by the technologist. Radiation Dose Information: CT Dose: CTDI volume is 25.17 mGy. Dose-length product is 1343.52 mGy*cm FINDINGS: Evaluation of solid organs is limited due to lack of intravenous contrast use. Findings: Lung Bases: No acute or significant lung base finding. Normal heart size. No pleural or pericardial effusion. Liver: Nodular appearance of the surface of the liver. Gallbladder and Biliary Tree: Contracted no calcified gallstones Spleen: Unremarkable Pancreas: Possible edema of the pancreatic parenchyma no peripancreatic stranding no pseudocysts. Cor relate with pancreatic lab values to exclude pancreatitis. Adrenal Glands: Unremarkable Kidneys: Kidneys are grossly normal without calculi or hydronephrosis. Bladder: Grossly unremarkable for degree of distention. Bowel: The stomach is grossly normal in appearance. Small bowel and colon are normal in caliber and d istribution. The appendix is not visualized; however, no secondary findings of acute appendicitis id entified. Ascites: Absent Lymphadenopathy: No mesenteric, retroperitoneal or periportal lymphadenopathy. Abdominal Wall and Mesentery: Unremarkable. Vasculature: The visualized abdominal aorta is normal in size and caliber. Evaluation of abdominal a nd pelvic vessels is limited due to lack of intravenous contrast. Pelvic Organs: Unremarkable Musculoskeletal: No aggressive focal bony lesions, acute fractures or dislocation. Soft tissues: Unremarkable IMPRESSION: 1. Somewhat nodular appearance of the surface of the liver 2. Possible edematous changes to the pancreatic parenchyma without peripancreatic stranding correlate with pancreatic enzymes. No pseudocyst. 3. No calcified gallstones gallbladder is contracted. 4. No nephrolithiasis or hydronephrosis. Radiation optimization: All CT scans at this facility use at least one of these dose optimization te chniques: automated exposure control mA and/or kV adjustment per patient size (includes targeted exa ms where dose is matched to clinical indication) or iterative reconstruction.
[2024-12-22 17:42] LABS: Basophils # (auto) 0.1 10 ^3/uL (0-0.2); Eosinophils # (auto) 0.4 10 ^3/uL (0-0.8); Eosinophils % (auto) 5.7 % (0.0-7.0); Hematocrit 51.7 % (41.0-53.0); Hemoglobin 17.2 g/dL (13.5-17.5); Lymphocytes # (auto) 1.5 10 ^3/uL (0.4-5.4); Lymphocytes % (auto) 22.1 % (10.0-50.0); Mean Corpuscular Hemoglobin 31.2 pg (28.0-32.0); Mean Corpuscular Hgb Conc. 33.3 g/dL (32.0-36.0); Mean Corpuscular Volume 93.7 fL (80.0-100.0); Monocytes # (auto) 0.7 10 ^3/uL (0-1.3); Monocytes % (auto) 11.2 % (0.0-12.0); Nucleated Red Blood Cells % 0.5 %; Platelet Count (auto) 139 10^3/uL (140-450); Red Blood Cells 5.51 10^6/uL (4.5-5.90); Red Cell Distribution Width 17.4 % (11.8-14.3); White Blood Cell 6.6 10^3/uL (4.4-10.8)
[2024-12-22 17:54] LABS: Albumin 4.1 g/dL (3.2-4.8); Anion Gap 9 (5-15); BUN/Creatinine Ratio 16.3 (10.0-20.0); Bilirubin, Total 1.1 mg/dL (0.2-1.0); Calcium 9.2 mg/dL (8.7-10.4); Glucose 86 mg/dL (74-106); Potassium 4.2 mmol/L (3.5-5.1); Sodium 140 mmol/L (136-145); Total Protein 6.9 g/dL (5.7-8.2)
[2024-12-22 17:55] LABS: Alanine Aminotransferase 98 U/L (7-40); Alkaline Phosphatase 134 U/L (46-116); Aspartate Aminotransferase 53 U/L (13-40); Blood Urea Nitrogen 34 mg/dL (9-23); Carbon Dioxide 20 mmol/L (20-31); Chloride 111 mmol/L (98-107)
[2024-12-22 18:55] LABS: Lipase 304 U/L (12-53)
[2024-12-22] MEDS ORDERED: PANT40TA2 PO (19:55)
[2024-12-22 20:14] VITALS: BP 146/79; PULSE 61; RESP 17; TEMP 98.5; O2SAT 95
--- NOTE | 2024-12-25 09:58 | ECG ---
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
== END 2024-12-22 20:15 | disposition home or self-care (01) ==
LOC: ER 15:41
DX: K21.9 Gastro-esophageal reflux disease without esophagitis (principal); I11.0 Hypertensive heart disease with heart failure; I50.9 Heart failure, unspecified; E11.9 Type 2 diabetes mellitus without complications; E78.5 Hyperlipidemia, unspecified; I44.4 Left anterior fascicular block; Z79.84 Long term (current) use of oral hypoglycemic drugs; Z90.49 Acquired absence of other specified parts of digestive tract; Z79.899 Other long term (current) drug therapy; Z98.890 Other specified postprocedural states
CPT/HCPCS: 36415; 74176; 80053; 82947; 82962; 83690; 84484; 85025; 93005

== ENCOUNTER → 2024-12-28 | Outpatient (CLI) | payer MEDICAID ==
[~2024-12-28] MED LIST changes: +PANT40TA2 PO
[2024-12-28 11:12] LABS: Albumin 3.9 g/dL (3.2-4.8); Anion Gap 10 (5-15); BUN/Creatinine Ratio 13.4 (10.0-20.0); Calcium 9.1 mg/dL (8.7-10.4); Carbon Dioxide 23 mmol/L (20-31); Potassium 3.8 mmol/L (3.5-5.1); Sodium 141 mmol/L (136-145)
[2024-12-28 11:13] LABS: Bilirubin, Total 1.2 mg/dL (0.2-1.0)
[2024-12-28 11:17] LABS: Alanine Aminotransferase 107 U/L (7-40); Alkaline Phosphatase 124 U/L (46-116); Aspartate Aminotransferase 62 U/L (13-40); Blood Urea Nitrogen 29 mg/dL (9-23); Chloride 108 mmol/L (98-107); Glucose 261 mg/dL (74-106)
[2024-12-28 11:21] LABS: Creatinine, Urine 16.62 mg/dL (30.0-125.0)
== END | disposition home or self-care (01) ==
LOC: LAB 10:00
PROVIDERS: ATTEND Internal Medicine
DX: E11.9 Type 2 diabetes mellitus without complications (principal); K76.82 Hepatic encephalopathy
CPT/HCPCS: 36415; 80053; 82043; 82140; 82570; 83036

== ENCOUNTER → 2025-01-30 | Outpatient (CLI) | payer MEDICAID ==
[2025-01-30 11:09] LABS: Creatinine, Urine 105.82 mg/dL (30.0-125.0)
[2025-01-30 11:12] LABS: Albumin 3.7 g/dL (3.2-4.8); Anion Gap 8 (5-15); BUN/Creatinine Ratio 14.9 (10.0-20.0); Calcium 9.4 mg/dL (8.7-10.4); Potassium 5.1 mmol/L (3.5-5.1); Sodium 139 mmol/L (136-145); Total Protein 6.5 g/dL (5.7-8.2); Uric Acid 4.5 mg/dL (3.7-9.2)
[2025-01-30 11:13] LABS: Phosphorus 3.4 mg/dL (2.4-5.1)
[2025-01-30 11:20] LABS: Alanine Aminotransferase 160 U/L (7-40); Alkaline Phosphatase 119 U/L (46-116); Aspartate Aminotransferase 86 U/L (13-40); Bilirubin, Total 1.3 mg/dL (0.2-1.0); Blood Urea Nitrogen 26 mg/dL (9-23); Carbon Dioxide 18 mmol/L (20-31); Chloride 113 mmol/L (98-107); Glucose 150 mg/dL (74-106)
== END | disposition home or self-care (01) ==
LOC: LAB 10:14
PROVIDERS: ATTEND Internal Medicine Nephrology
DX: E11.22 Type 2 diabetes mellitus with diabetic chronic kidney disease (principal); N18.30 Chronic kidney disease, stage 3 unspecified; E11.21 Type 2 diabetes mellitus with diabetic nephropathy; E21.3 Hyperparathyroidism, unspecified; E55.9 Vitamin D deficiency, unspecified; M10.9 Gout, unspecified; N39.0 Urinary tract infection, site not specified; R80.9 Proteinuria, unspecified; D63.1 Anemia in chronic kidney disease
CPT/HCPCS: 36415; 80053; 82043; 82570; 83036; 83735; 83970; 84100; 84550

== ENCOUNTER 2025-02-04 15:58 | Emergency (ER) | payer MEDICAID ==
[~2025-02-04] VITALS: Ht 165.1 cm; Wt 98.1 kg
[~2025-02-04 15:58] MED LIST changes: +EMPA1TAB3 PO; +ERGO1CAP12 PO; +FEXO-131 PO; +FLUO-470 PO; +GLIP10TA9 PO; +PANT40T PO; +SPIR25TA8 PO
--- NOTE | 2025-02-04 16:22 | ED.PDOC ---
GI ASSESSMENT HPI Comments 69 y.o male with PMHx of DM, liver cirrhosis, HTN, hyperlipidemia, presents to the ED for a chief complaint of diffuse abdominal pain that started 3 days ago. Patient describes pain as bloating/pressure, constant, and is associated with swelling. Patient denies previous paracentesis, constipation, fever, chills, nausea, vomiting, constipation. Patient is on lactulose, so states he chronically has soft/loose stools. Time Seen by MD: 16:11 Primary Care Provider: [place] Reviewed Notes: Nurses Notes, Medications, Allergies Allergies: Coded Allergies: No Known Drug Allergy (Verified Allergy, Unknown, 05/04/19) Home Meds Active Scripts Ciprofloxacin Hcl (Cipro) 500 Mg Tab, 1 TAB PO BID for 7 Days, #14 TAB Prov:RICHARD PIERRE MD 02/04/25 Metronidazole (Flagyl) 500 Mg Tab, 1 TAB PO TID for 7 Days, #21 TAB Prov:RICHARD PIERRE MD 02/04/25 Dicyclomine Hcl (BENTYL CAPSULE) 10 Mg Cp, 2 CAP PO Q6HP PRN, #60 CAP 11 Refills Prov:RICHARD PIERRE MD 02/04/25 Tramadol Hcl (Tramadol Hcl) 50 Mg Tab, 50 MG PO Q6HP PRN, #20 TAB Prov:RICHARD PIERRE MD 02/04/25 Pantoprazole Sodium Sesquihydr (Protonix) 40 Mg Tab, 40 MG PO DAILY, #30 TAB Prov:GUILLE MORALES PAC 12/22/24 Cephalexin (KEFLEX CAPSULE) 250 Mg Cp, 500 MG PO BID for 5 Days, #20 CAP Prov:EMERALD ALCANTAR MD 07/26/24 Lactulose (Constulose) 10 Gm/15 Ml Candis, 30 ML PO Q6H for 30 Days, #3600 ML Prov:EMERALD ALCANTAR MD 07/26/24 Spironolactone (Aldactone) 25 Mg Tab, 100 MG PO DAILY for 60 Days, #240 TAB Prov:MARK ELIAS RESIDENT 07/21/24 Rifaximin (Xifaxan) 550 Mg Tab, 550 MG PO BID for 30 Days, #60 TAB Prov:SANAZ MARTINEZ RESIDENT 03/06/24 Reported Medications Insulin Lispro (Humalog Kwikpen) 100 Unit/Ml Inj, 100 UNIT SC, INJ 07/20/24 Furosemide (Furosemide) 40 Mg Tab, 1 TAB PO DAILY, #30 TAB 5 Refills 07/20/24 Insulin Glargine (Lantus Solostar) 100 Unit/Ml Inj, 35 UNIT SC BID 03/06/24 Atorvastatin Calcium (Lipitor) 40 Mg Tab, 1 TAB PO DAILY 03/06/24 Dapagliflozin Propanediol (Farxiga) 10 Mg Tab, 10 MG PO DAILY, TAB 03/05/24 Amlodipine Besylate (Amlodipine Besylate) 10 Mg Tab, 1 TAB PO DAILY 03/05/24 Lisinopril (Lisinopril) 20 Mg Tab, 1 TAB PO DAILY 03/05/24 Carvedilol (Carvedilol) 6.25 Mg Tab, 1 TAB PO BID 03/05/24 Glipizide (Glipizide Er) 10 Mg Tab, 10 MG PO BID, TAB 01/16/19 Information Source: Patient Mode of Arrival: Ambulatory Timing: Days (3) Duration: Since onset Quality: Sharp Vomitus: None Stool: Normal Severity: Moderate Recent: None Recent Hx of: None Pain Location: Diffuse Modifying Factors: Nothing Associated sign and symptoms: Abdominal Pain Past Medical History PAST MEDICAL HISTORY: CHF, DM, GERD, High Lipids, HTN, Liver, [place] Surgical History: Appendectomy Family History Family History: Reviewed,noncontributory to illness, Unknown Social History Smoker: Non-Smoker Alcohol: Sober Drugs: Denies Drug Use Lives In: Home Constitutional: denies: chills, diaphoresis, fatigue, fever, malaise, sweats, weakness, others EENTM: denies: blurred vision, double vision, ear bleeding, ear discharge, ear drainage, ear pain, ear ringing, eye pain, eye redness, hearing loss, mouth pain, mouth swelling, nasal discharge, nose bleeding, nose congestion, nose pain, photophobia, tearing, throat pain, throat swelling, voice changes, others Respiratory: denies: cough, hemoptysis, orthopnea, SOB at rest, shortness of breath, SOB with excertion, stridor, wheezing, others Cardiovascular: denies: chest pain, dizzy spells, diaphoresis, Dyspnea on exertion, edema, irregular heart beat, left arm pain, lightheadedness, palpitations, PND, syncope, others Gastrointestinal: reports: abdomen distended, abdominal pain; denies: blood streaked bowels, constipated, diarrhea, dysphagia, difficulty swallowing, hem atemesis, melena, nausea, poor appetite, poor fluid intake, rectal bleeding, rectal pain, vomiting, others Genitourinary: denies: burning, dysuria, flank pain, frequency, hematuria, incontinence, penile discharge, penile sore, pain, testicle pain, testicle swelling, urgency, others Neurological: denies: dizziness, fainting, headache, left sided numbness, left sided weakness, numbness, paresthesia, pre-existing deficit, right sided numbness, right sided weakness, seizure, speech problems, tingling, tremors, weakness, others Musculoskeletal: denies: back pain, gout, joint pain, joint swelling, muscle pain, muscle stiffness, neck pain, others Integumetry: denies: bruises, change in color, change in hair/nails, dryness, laceration, lesions, lumps, rash, wounds, others Allergic/Immunocompromised: denies: Difficulty Healing, Frequent Infections, Hives, Itching, others Hematologic/Lymphatic: denies: anemia, blood clots, easy bleeding, easy bruising, swollen glands, others Endocrine: denies: excessive hunger, excessive sweating, excessive thirst, excessive urination, flushing, intolerance to cold, intolerance to heat, unexplained weight gain, unexplained weight loss, others Psychiatric: denies: anxiety, bipolar disorder, depression, hopeless, panic disorder, schizophrenia, sleepless, suicidal, others All Other Systems: Reviewed and Negative Physical Exam General Appearance: No Apparent Distress, Obese HEENT: Other (Pupils and face symmetric. Moist mucous membranes.) Neck: Full Range of Motion, Normal Inspection Respiratory: Lungs Clear, No Accessory Muscle Use, No Respiratory Distress, Normal Breath Sounds Cardiovascular: No Edema, No JVD, Regular Rate/Rhythm Breast Exam: Deferred Gastrointestinal: Diffuse, Soft, Tenderness Genitalia: Deferred Pelvic: Deferred Rectal: Deferred Extremities: Normal inspection, Normal range of motion, Non-tender, No pedal edema Neurologic: Alert (Oriented x4), Normal Affect, Normal Mood, Other (Ambulatory without difficulty.) Cerebellar Function: NOT DONE Reflexes: NOT DONE Skin: Dry, Normal Color, Warm Lymphatic: NOT DONE Was a procedure done? Was a procedure done?: No GI differential Dx Differential Diagnosis: Esophagitis, Gastroenteritis, Hepatitis, Inflammatory BD, Ischemic Bowel, Pancreatitis, UTI, Electrolyte Imbalance, Food Poisoning, Bacterial, Viral, Renal Failure, Esophageal Varicies Other Differential Diagnosis Ascites X-Ray, Labs, Meds, VS Vital Signs Date Time Temp Pulse Resp B/P (MAP) Pulse Ox O2 Delivery O2 Flow Rate FiO2 02/04/25 20:29 96.8 63 16 148/93 (111) 95 96.8 02/04/25 16:20 62 02/04/25 16:12 97.5 64 18 127/89 (102) 94 97.5 Lab Test 02/04/25 20:20 02/04/25 16:15 Range/Units Urine Color Yellow Yellow Urine Clarity Clear Clear Urine pH 5.5 5.0-9.0 Urine Specific Pe[place] 1.038 H 1.001-1.035 Urine Protein 2+ H Negative Urine Ketones Negative Negative Urine Blood 3+ H Negative /uL Urine Nitrite Negative Negative Urine Bilirubin Negative Negative Urine Urobilinogen Normal Negative mg/dL Urine Leukocyte Esterase Trace Negative /uL Urine RBC 8 0 - 3 /hpf Urine Microscopic WBC 26 H 0-3 /HPF Urine Squamous Epithelial Cells Few <5 /hpf Urine Bacteria None seen None Seen /hpf Urine Hyaline Casts Few 0 - 2 /lpf Urine Mucus Few None Seen Urine Glucose 4+ H Normal mg/dL White Blood Count 7.6 4.4-10.8 10^3/uL Red Blood Count 5.59 4.5-5.90 10^6/uL Hemoglobin 17.8 H 13.5-17.5 g/dL Hematocrit 52.6 41.0-53.0 % Mean Corpuscular Volume 94.1 80.0-100.0 fL Mean Corpuscular Hemoglobin 31.8 28.0-32.0 pg Mean Corpuscular Hemoglobin Concent 33.8 32.0-36.0 g/dL Red Cell Distribution Width 19.1 H 11.8-14.3 % Platelet Count 111 L 140-450 10^3/uL Mean Platelet Volume 9.8 6.9-10.8 fL Neutrophils (%) (Auto) 69.5 37.0-80.0 % Lymphocytes (%) (Auto) 15.6 10.0-50.0 % Monocytes (%) (Auto) 11.4 0.0-12.0 % Eosinophils (%) (Auto) 2.6 0.0-7.0 % Basophils (%) (Auto) 0.9 0.0-2.0 % Neutrophils # (Auto) 5.3 1.6-8.6 10 ^3/uL Lymphocytes # (Auto) 1.2 0.4-5.4 10 ^3/uL Monocytes # (Auto) 0.9 0-1.3 10 ^3/uL Eosinophils # (Auto) 0.2 0-0.8 10 ^3/uL Basophils # (Auto) 0.1 0-0.2 10 ^3/uL Nucleated Red Blood Cells 0.4 % Sodium Level 146 #H 136-145 mmol/L Potassium Level 4.6 3.5-5.1 mmol/L Chloride Level 117 H 98-107 mmol/L Carbon Dioxide Level 18 L 20-31 mmol/L Anion Gap 11 5-15 Blood Urea Nitrogen 26 H 9-23 mg/dL Creatinine 1.77 H 0.700-1.30 mg/dL Glomerular Filtration Rate Calc 42 >90 mL/min BUN/Creatinine Ratio 14.7 10.0-20.0 Serum Glucose 170 H 74-106 mg/dL Lactic Acid Level 1.5 0.4-2.0 mmol/L Calcium Level 9.8 8.7-10.4 mg/dL Total Bilirubin 1.5 H 0.2-1.0 mg/dL Aspartate Amino Transferase (AST) 74 H 13-40 U/L Alanine Aminotransferase (ALT) 163 H 7-40 U/L Alkaline Phosphatase 114 46-116 U/L B-Type Natriuretic Peptide 38.44 0-100 pg/mL Total Protein 6.1 5.7-8.2 g/dL Albumin 3.7 3.2-4.8 g/dL Lipase 47 12-53 U/L PROCEDURE(s): ABPL - CT AB PEL WO CON-NO ORAL OR IV REASON: diffuse abdominal pain, distention ORDER NUMBER(s): [id number], ACCESSION NUMBER(s): [id number] Exam: CT CT AB PEL WO CON-NO ORAL OR IV History: diffuse abdominal pain, distention Comparison Study: 12/23/2023 TECHNIQUE: Multidetector CT of the abdomen and pelvis without IV contrast. Axial, coronal and sagittal multiplanar reformats were obtained from the axial data set by the technologist. Radiation Dose Information: CT Dose: CTDI volume is 23.94 mGy. Dose-length product is 1293.46 mGy*cm FINDINGS: The lung bases are clear. Partially visualized heart is unremarkable. Cirrhotic appearing liver with recanalization of the umbilical vein and splenorenal varices. Spleen, gallbladder, pancreas and adrenal glands are unremarkable. Punctate nonobstructing left renal calculus. Otherwise, Kidneys, ureters and urinary bladder unremarkable. Prostate measures 3.6 x 5 x 3.5 cm. Nonspecific foci of calcification within the pelvis. Stomach is unremarkable. Fluid-filled small bowel loops without significant distention. There is mesenteric edema of the right hemiabdomen. Appendix is not definitely visualized with surgical clips within the right lower abdominal quadr ant adjacent to the cecum. Small to moderate amount of fecal material within the colon. Trace to mild ascites over the perihepatic region and within the pelvis. No evidence of intraperitoneal free air. No evidence of aortic aneurysm . Mild atherosclerotic calcification of the aorta. No significant lymphadenopathy. Small fat containing umbilical hernia. Small fat containing left inguinal hernia. Minimal body wall edema. No destructive osseous lesions noted. IMPRESSION: Cirrhotic appearing liver with signs of portal hypertension. Trace to small perihepatic and intrapelvic free fluid with mesenteric edema within the right hemiabdomen which may be associated with the cirrhosis with enteritis not excluded. X-Ray, Labs, Meds, VS Comment 69-year-old male with history of DM, liver cirrhosis, HTN, hyperlipidemia, complaining of diffuse abdominal pain Vitals remarkable for BP 148/93 Exam remarkable for diffuse abdominal tenderness to palpation. Nontender to percussion. No rebound or guarding. Rhythm strip independently interpreted by me: Sinus rhythm, rate 64, no ectopy. CT abdomen and pelvis IMPRESSION: Cirrhotic appearing liver with signs of portal hypertension. Trace to small perihepatic and intrapelvic free fluid with mesenteric edema within the right hemiabdomen which may be associated with the cirrhosis with enteritis not excluded. CBC unremarkable, CMP remarkable for sodium 146, chloride 117, BUN 26, creatinine 1.77, total bilirubin 1.5, AST 74, ALT 163, lipase normal, lactate normal UA- no sample provided Patient treated with the following in the ED: Morphine 4 mg IV, Zofran 4 mg IV, Aldactone 100 mg p.o. On re-evaluation, patient states pain has improved. Vitals were stable. Patient does not appear to require diagnostic or therapeutic paracentesis at this time. He is tolerating po. Patient will be prescribed pain medication, antibiotics for possible bacterial enteritis, and will be advised to follow-up with his primary physician for referral to a GI specialist. He will also be referred to Dr. David Pena. Time of 1ST Reevaluation: 16:22 Reevaluation 1ST: Unchanged Patient Education/Counseling: Diagnosis, Treatment, Prognosis Family Education/Counseling: No Family Present Departure 1 Departure Time of Disposition: 20:50 Impression: Primary Impression: Abdominal pain Qualified Codes: R10.84 - Generalized abdominal pain Additional Impression: Enteritis Disposition: 01 HOME / SELF CARE / HOMELESS Condition: Stable Referrals: ZENAIDA PENA MD Additional Instructions: Your CT scan showed some fluid retention within your abdomen. This may be due to your liver disease or an infection. I have prescribed pain medication and antibiotics. Follow-up with your primary doctor in 1-2 days for referral to a GI specialist for further evaluation. Alternatively, follow-up directly with Dr. David Pena. [place] [address] Ph: [phone] DIAGNOSTIC IMAGING Diagnostic Imaging Report : [id number] Signed PATIENT: DARELL SINCLAIR ACCT: [id number] UNIT: [id number] : 1955 LOC: ER ROOM / BED: / AGE / SEX: 69 / M ADM STATUS: REG ER SERVICE 1616 ORDERING PHYSICIAN: RICHARD PIERRE MD PROCEDURE(s): ABPL - CT AB PEL WO CON-NO ORAL OR IV REASON: diffuse abdominal pain, distention ORDER NUMBER(s): [id number], ACCESSION NUMBER(s): [id number] Exam: CT CT AB PEL WO CON-NO ORAL OR IV History: diffuse abdominal pain, distention Comparison Study: 12/23/2023 TECHNIQUE: Multidetector CT of the abdomen and pelvis without IV contrast. Axial, coronal and sagittal multiplanar reformats were obtained from the axial d ellen set by the technologist. Radiation Dose Information: CT Dose: CTDI volume is 23.94 mGy. Dose-length product is 1293.46 mGy*cm FINDINGS: The lung bases are clear. Partially visualized heart is unremarkable. Cirrhotic appearing liver with recanalization of the umbilical vein and splenorenal varices. Spleen, gallbladder, pancreas and adrenal glands are unremarkable. Punctate nonobstructing left renal calculus. Otherwise, Kidneys, ureters and urinary bladder unremarkable. Prostate measures 3.6 x 5 x 3.5 cm. Nonspecific foci of calcification within the pelvis. Stomach is unremarkable. Fluid-filled small bowel loops without significant distention. There is mesenteric edema of the right hemiabdomen. Appendix is not definitely visualized with surgical clips within the right lower abdominal quadrant adjacent to the cecum. Small to moderate amount of fecal material within the colon. Trace to mild ascites over the perihepatic region and within the pelvis. No evidence of intraperitoneal free air. No evidence of aortic aneurysm . Mild atherosclerotic calcification of the aorta. No significant lymphadenopathy. Small fat containing umbilical hernia. Small fat containing left inguinal hernia. Minimal body wall edema. No destructive osseous lesions noted. IMPRESSION: Cirrhotic appearing liver with signs of portal hypertension. Trace to small perihepatic and intrapelvic free fluid with mesenteric edema within the right hemiabdomen which may be associated with the cirrhosis with enteritis not excluded. e-Prescriptions Ciprofloxacin Hcl (Cipro) 500 Mg Tab 1 TAB PO BID for 7 Days, #14 TAB Prov: RICHARD PIERRE MD 02/04/25 Metronidazole (Flagyl) 500 Mg Tab 1 TAB PO TID for 7 Days, #21 TAB Prov: RICHARD PIERRE MD 02/04/25 Dicyclomine Hcl (BENTYL CAPSULE) 10 Mg Cp 2 CAP PO Q6HP PRN, #60 CAP 11 Refills Prov: RICHARD PIERRE MD 02/04/25 Tramadol Hcl (Tramadol Hcl) 50 Mg Tab 50 MG PO Q6HP PRN, #20 TAB Prov: RICHARD PIERRE MD 02/04/25 Discharged With: Relative Critical Care Note Critical Care Time?: No Stability Stability form required: No I personally scribed for RICHARD PIERRE MD ([email or web address]) on 02/04/25 at 16:22. Electronically submitted by Anna Molina ([facility]). RICHARD PIERRE MD February 04, 2025 16:22
[2025-02-04 16:45] LABS: Basophils # (auto) 0.1 10 ^3/uL (0-0.2); Basophils % (auto) 0.9 % (0.0-2.0); Eosinophils # (auto) 0.2 10 ^3/uL (0-0.8); Eosinophils % (auto) 2.6 % (0.0-7.0); Hematocrit 52.6 % (41.0-53.0); Hemoglobin 17.8 g/dL (13.5-17.5); Lymphocytes # (auto) 1.2 10 ^3/uL (0.4-5.4); Lymphocytes % (auto) 15.6 % (10.0-50.0); Mean Corpuscular Hemoglobin 31.8 pg (28.0-32.0); Mean Corpuscular Hgb Conc. 33.8 g/dL (32.0-36.0); Mean Corpuscular Volume 94.1 fL (80.0-100.0); Monocytes # (auto) 0.9 10 ^3/uL (0-1.3); Monocytes % (auto) 11.4 % (0.0-12.0); Neutrophils # (auto) 5.3 10 ^3/uL (1.6-8.6); Neutrophils % (auto) 69.5 % (37.0-80.0); Nucleated Red Blood Cells % 0.4 %; Platelet Count (auto) 111 10^3/uL (140-450); Red Blood Cells 5.59 10^6/uL (4.5-5.90); Red Cell Distribution Width 19.1 % (11.8-14.3); White Blood Cell 7.6 10^3/uL (4.4-10.8)
[2025-02-04 17:00] LABS: Albumin 3.7 g/dL (3.2-4.8); Alkaline Phosphatase 114 U/L (46-116); Anion Gap 11 (5-15); BUN/Creatinine Ratio 14.7 (10.0-20.0); Calcium 9.8 mg/dL (8.7-10.4); Lipase 47 U/L (12-53); Potassium 4.6 mmol/L (3.5-5.1); Total Protein 6.1 g/dL (5.7-8.2)
[2025-02-04 17:01] LABS: Alanine Aminotransferase 163 U/L (7-40); Aspartate Aminotransferase 74 U/L (13-40); Bilirubin, Total 1.5 mg/dL (0.2-1.0); Blood Urea Nitrogen 26 mg/dL (9-23); Carbon Dioxide 18 mmol/L (20-31); Chloride 117 mmol/L (98-107); Glucose 170 mg/dL (74-106); Sodium 146 mmol/L (136-145)
--- NOTE | 2025-02-04 18:16 | DVH ---
Exam: CT CT AB PEL WO CON-NO ORAL OR IV History: diffuse abdominal pain, distention Comparison Study: 12/23/2023 TECHNIQUE: Multidetector CT of the abdomen and pelvis without IV contrast. Axial, coronal and sagitta l multiplanar reformats were obtained from the axial data set by the technologist. Radiation Dose Information: CT Dose: CTDI volume is 23.94 mGy. Dose-length product is 1293.46 mGy*cm FINDINGS: The lung bases are clear. Partially visualized heart is unremarkable. Cirrhotic appearing liver with recanalization of the umbilical vein and splenorenal varices. Spleen, gallbladder, pancreas and adrenal glands are unremarkable. Punctate nonobstructing left renal calculus. Otherwise, Kidneys, ureters and urinary bladder unremar kable. Prostate measures 3.6 x 5 x 3.5 cm. Nonspecific foci of calcification within the pelvis. Stomach is unremarkable. Fluid-filled small bowel loops without significant distention. There is mese nteric edema of the right hemiabdomen. Appendix is not definitely visualized with surgical clips wit hin the right lower abdominal quadrant adjacent to the cecum. Small to moderate amount of fecal mater ial within the colon. Trace to mild ascites over the perihepatic region and within the pelvis. No evidence of intraperitone al free air. No evidence of aortic aneurysm . Mild atherosclerotic calcification of the aorta. No significant lymphadenopathy. Small fat containing umbilical hernia. Small fat containing left inguinal hernia. Minimal body wall edema. No destructive osseous lesions noted. IMPRESSION: Cirrhotic appearing liver with signs of portal hypertension. Trace to small perihepatic and intrapelvic free fluid with mesenteric edema within the right hemiabdo men which may be associated with the cirrhosis with enteritis not excluded.
[2025-02-04 20:29] VITALS: TEMP 96.8
[2025-02-04 20:48] LABS: Urine Bacteria None Seen /hpf (None Seen)
[2025-02-04] MEDS ORDERED: METR-344 PO (20:55)
[2025-02-04] MEDS ORDERED: CIPR-173 PO (20:55)
[2025-02-04] MEDS ORDERED: DICY10CA PO (20:55)
[2025-02-04] MEDS ORDERED: TRAM50TA2 PO (20:55)
[2025-02-04 21:05] LABS: Urine Blood 3+ /uL (Negative); Urine Clarity Clear (Clear); Urine Color Yellow (Yellow); Urine Hyaline Cast FEW /lpf (0 - 2); Urine Mucus FEW (None Seen); Urine Protein, UAD 2+ (Negative); Urine Specific Gravity 1.038 (1.001-1.035); Urine Squamous Epithelial Cell FEW /hpf (<5); Urine Urobilinogen Normal (Negative); Urine WBC 26 /HPF (0-3); Urine pH 5.5 (5.0-9.0)
[2025-02-04 21:50] VITALS: O2SAT 98
[2025-02-04] MEDS: SPIRONOLACTONE 25 MG TAB PO ONE (21:54)
[2025-02-04] MEDS: ONDANSETRON HCL 4 MG/2 ML VIAL IV ONE (21:54)
[2025-02-04] MEDS: MORPHINE SULFATE 4 MG/ML SYR/VIAL IV ONE (21:56)
--- NOTE | 2025-02-04 21:56 | DVH ---
CHEST RADIOGRAPH Indication: SOB Technique: Single frontal view of the chest was obtained Comparison: XY CHEST PORTABLE on DOS: 07/19/24 FINDINGS: Lines and Tubes: None Lungs: No focal consolidation. Pleura: No effusion. No pneumothorax. Cardiomediastinal contours: Unremarkable Bones: No acute osseous abnormality. IMPRESSION: 1. No acute cardiopulmonary disease.
[2025-02-04 22:35] VITALS: BP 157/96; PULSE 69; RESP 18; O2SAT 95
[2025-02-05] MEDS ORDERED: ALLO100T PO (13:46)
--- NOTE | 2025-02-07 14:00 | ECG ---
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
== END 2025-02-04 22:39 | disposition home or self-care (01) ==
LOC: ER 15:58
DX: K52.9 Noninfective gastroenteritis and colitis, unspecified (principal); I11.0 Hypertensive heart disease with heart failure; E11.9 Type 2 diabetes mellitus without complications; E78.5 Hyperlipidemia, unspecified; I50.9 Heart failure, unspecified; K21.9 Gastro-esophageal reflux disease without esophagitis; I21.9 Acute myocardial infarction, unspecified; Z90.49 Acquired absence of other specified parts of digestive tract; Z79.4 Long term (current) use of insulin; Z79.84 Long term (current) use of oral hypoglycemic drugs; Z79.899 Other long term (current) drug therapy
CPT/HCPCS: 36415; 71045; 74176; 80053; 81001; 83605; 83690; 83880; 85025; 96374; 96375; 99285; J2270; J2405

== ENCOUNTER 2025-02-05 15:26 | Inpatient (IN) | payer MEDICAID ==
[~2025-02-05] VITALS: Ht 165.1 cm; Wt 102.6 kg
[~2025-02-05 15:26] MED LIST changes: +ALLO100T PO; +CIPR-173 PO; +DICY10CA PO; +METR-344 PO; +TRAM50TA2 PO
--- NOTE | 2025-02-05 16:23 | ED.PDOC ---
GI ASSESSMENT HPI Comments 69 y.o male with PMHx of CHF, DM, Hyperlipidemia, HTN, liver cirrhosis, presents to the ED for abdominal pain and constipation. Patient was seen by me yesterday for the same complaint, workup was essentially unremarkable, abdominal CT showed trace ascites and was consistent with possible enteritis. Patient was discharged with a prescription for tramadol, Cipro, Flagyl and Bentyl. Patient states he started the medication but states abdominal pain is unbearable and feels his abdomen is more distended today. Patient was having diarrhea, last episode was last night at the ED and since then has not had a bowel movement. He denies any fever, chills, nausea, vomiting. Chief Complaint: Abdominal Pain Time Seen by MD: 16:03 Primary Care Provider: FRANCIS Reviewed Notes: Nurses Notes, Medications, Allergies Allergies: Coded Allergies: No Known Drug Allergy (Verified Allergy, Unknown, 05/04/19) Home Meds Active Scripts Ciprofloxacin Hcl (Cipro) 500 Mg Tab, 1 TAB PO BID for 7 Days, #14 TAB Prov:RICHARD PIERRE MD 02/04/25 Metronidazole (Flagyl) 500 Mg Tab, 1 TAB PO TID for 7 Days, #21 TAB Prov:RICHARD PIERRE MD 02/04/25 Dicyclomine Hcl (BENTYL CAPSULE) 10 Mg Cp, 2 CAP PO Q6HP PRN, #60 CAP 11 Refills Prov:RICHARD PIERRE MD 02/04/25 Tramadol Hcl (Tramadol Hcl) 50 Mg Tab, 50 MG PO Q6HP PRN, #20 TAB Prov:RICHARD PIERRE MD 02/04/25 Pantoprazole Sodium Sesquihydr (Protonix) 40 Mg Tab, 40 MG PO DAILY, #30 TAB Prov:GUILLE MORALES PAC 12/22/24 Cephalexin (KEFLEX CAPSULE) 250 Mg Cp, 500 MG PO BID for 5 Days, #20 CAP Prov:EMERALD ALCANTAR MD 07/26/24 Lactulose (Constulose) 10 Gm/15 Ml Candis, 30 ML PO Q6H for 30 Days, #3600 ML Prov:EMERALD ALCANTAR MD 07/26/24 Spironolactone (Aldactone) 25 Mg Tab, 100 MG PO DAILY for 60 Days, #240 TAB Prov:MARK ELIAS RESIDENT 07/21/24 Rifaximin (Xifaxan) 550 Mg Tab, 550 MG PO BID for 30 Days, #60 TAB Prov:SANAZ MARTINEZ RESIDENT 03/06/24 Reported Medications Insulin Lispro (Humalog Kwikpen) 100 Unit/Ml Inj, 100 UNIT SC, INJ 07/20/24 Furosemide (Furosemide) 40 Mg Tab, 1 TAB PO DAILY, #30 TAB 5 Refills 07/20/24 Insulin Glargine (Lantus Solostar) 100 Unit/Ml Inj, 35 UNIT SC BID 03/06/24 Atorvastatin Calcium (Lipitor) 40 Mg Tab, 1 TAB PO DAILY 03/06/24 Dapagliflozin Propanediol (Farxiga) 10 Mg Tab, 10 MG PO DAILY, TAB 03/05/24 Amlodipine Besylate (Amlodipine Besylate) 10 Mg Tab, 1 TAB PO DAILY 03/05/24 Lisinopril (Lisinopril) 20 Mg Tab, 1 TAB PO DAILY 03/05/24 Carvedilol (Carvedilol) 6.25 Mg Tab, 1 TAB PO BID 03/05/24 Glipizide (Glipizide Er) 10 Mg Tab, 10 MG PO BID, TAB 01/16/19 Information Source: Patient Mode of Arrival: Ambulatory Timing: Days Duration: Since onset Quality: Aching, Sharp Vomitus: None Stool: Empty Severity: Moderate Recent: None Recent Hx of: None Pain Location: Diffuse Modifying Factors: Nothing Associated sign and symptoms: Constipation, Abdominal Pain Past Medical History PAST MEDICAL HISTORY: CHF, DM, GERD, High Lipids, HTN, Liver, ME Surgical History: Appendectomy Family History Family History: Reviewed,noncontributory to illness, Unknown Social History Smoker: Non-Smoker Alcohol: Sober Drugs: Denies Drug Use Lives In: Home Constitutional: denies: chills, diaphoresis, fatigue, fever, malaise, sweats, weakness, others EENTM: denies: blurred vision, double vision, ear bleeding, ear discharge, ear drainage, ear pain, ear ringing, eye pain, eye redness, hearing loss, mouth pain, mouth swelling, nasal discharge, nose bleeding, nose congestion, nose pain, photophobia, tearing, throat pain, throat swelling, voice changes, others Respiratory: denies: cough, hemoptysis, orthopnea, SOB at rest, shortness of breath, SOB with excertion, stridor, wheezing, others Cardiovascular: denies: chest pain, dizzy spells, diaphoresis, Dyspnea on exertion, edema, irregular heart beat, left arm pain, lightheadedness, palpitations, PND, syncope, others Gastrointestinal: reports: abdominal pain, constipated; denies: abdomen distended, blood streaked bowels, diarrhea, dysphagia, difficulty swallowing, hematemesis, melena, nausea, poor appetite, poor fluid intake, rectal bleeding, rectal pain, vomiting, others Genitourinary: denies: burning, dysuria, flank pain, frequency, hematuria, incontinence, penile discharge, penile sore, pain, testicle pain, testicle swelling, urgency, others Neurological: denies: dizziness, fainting, headache, left sided numbness, left sided weakness, numbness, paresthesia, pre-existing deficit, right sided numbness, right sided weakness, seizure, speech problems, tingling, tremors, weakness, others Musculoskeletal: denies: back pain, gout, joint pain, joint swelling, muscle pain, muscle stiffness, neck pain, others Integumetry: denies: bruises, change in color, change in hair/nails, dryness, laceration, lesions, lumps, rash, wounds, others Allergic/Immunocompromised: denies: Difficulty Healing, Frequent Infections, Hives, Itching, others Hematologic/Lymphatic: denies: anemia, blood clots, easy bleeding, easy brui sing, swollen glands, others Endocrine: denies: excessive hunger, excessive sweating, excessive thirst, ex cessive urination, flushing, intolerance to cold, intolerance to heat, unexplained weight gain, unexplained weight loss, others Psychiatric: denies: anxiety, bipolar disorder, depression, hopeless, panic disorder, schizophrenia, sleepless, suicidal, others All Other Systems: Reviewed and Negative Physical Exam General Appearance: Mild Distress, Obese HEENT: Other (Pupils and face symmetric. Moist mucous membranes.) Neck: Full Range of Motion, Normal Inspection Respiratory: Lungs Clear, No Accessory Muscle Use, No Respiratory Distress, Normal Breath Sounds Cardiovascular: No Edema, No JVD, Regular Rate/Rhythm Breast Exam: Deferred Gastrointestinal: Diffuse, Distended, Soft, Tenderness Genitalia: Deferred Pelvic: Deferred Rectal: Deferred Extremities: Normal inspection, Normal range of motion, Non-tender, No pedal edema Neurologic: Alert (Oriented x4), Normal Affect, Normal Mood, Other (Ambulatory) Cerebellar Function: NOT DONE Reflexes: NOT DONE Skin: Dry, Normal Color, Warm Lymphatic: NOT DONE Was a procedure done? Was a procedure done?: No GI differential Dx Differential Diagnosis: Diverticular disease, Gastroenteritis, Hepatitis, Inflammatory BD, Ischemic Bowel, Pancreatitis, UTI, Dehydration, Electrolyte Imbalance, Bacterial, Viral, Hypovolemia, Renal Failure Other Differential Diagnosis colitis, enteritis, among others X-Ray, Labs, Meds, VS Vital Signs Date Time Temp Pulse Resp B/P (MAP) Pulse Ox O2 Delivery O2 Flow Rate FiO2 02/05/25 20:07 94 16 131/102 02/05/25 20:00 84 18 96 Room Air* 0 21 02/05/25 20:00 97.1 87 16 137/81 (99) 96 97.1 02/05/25 19:34 80 16 137/81 02/05/25 17:17 86 17 133/98 02/05/25 16:45 98.4 86 17 133/98 (110) 95 98.4 02/05/25 16:45 86 17 95 Room Air* 0 21 02/05/25 15:52 97.5 83 17 135/81 (99) 95 97.5 Lab Test 02/05/25 19:09 02/05/25 16:22 Range/Units Lactic Acid Level 2.3 *H 2.3 *H 0.4-2.0 mmol/L Troponin I High Sensitivity 47 44 </=54 ng/L White Blood Count 16.3 #H 4.4-10.8 10^3/uL Red Blood Count 5.91 H 4.5-5.90 10^6/uL Hemoglobin 18.9 H 13.5-17.5 g/dL Hematocrit 55.9 H 41.0-53.0 % Mean Corpuscular Volume 94.5 80.0-100.0 fL Mean Corpuscular Hemoglobin 32.1 H 28.0-32.0 pg Mean Corpuscular Hemoglobin Concent 33.9 32.0-36.0 g/dL Red Cell Distribution Width 19.3 H 11.8-14.3 % Platelet Count 123 L 140-450 10^3/uL Mean Platelet Volume 10.4 6.9-10.8 fL Neutrophils (%) (Auto) 83.1 H 37.0-80.0 % Lymphocytes (%) (Auto) 7.3 L 10.0-50.0 % Monocytes (%) (Auto) 9.2 0.0-12.0 % Eosinophils (%) (Auto) 0.1 0.0-7.0 % Basophils (%) (Auto) 0.3 0.0-2.0 % Neutrophils # (Auto) 13.6 H 1.6-8.6 10 ^3/uL Lymphocytes # (Auto) 1.2 0.4-5.4 10 ^3/uL Monocytes # (Auto) 1.5 H 0-1.3 10 ^3/uL Eosinophils # (Auto) 0 0-0.8 10 ^3/uL Basophils # (Auto) 0.1 0-0.2 10 ^3/uL Nucleated Red Blood Cells 1.2 % Sodium Level 134 #L 136-145 mmol/L Potassium Level 5.8 *H 3.5-5.1 mmol/L Chloride Level 107 # 98-107 mmol/L Carbon Dioxide Level 15 L 20-31 mmol/L Anion Gap 12 5-15 Blood Urea Nitrogen 45 #H 9-23 mg/dL Creatinine 3.36 H 0.700-1.30 mg/dL Glomerular Filtration Rate Calc 19 >90 mL/min BUN/Creatinine Ratio 13.4 10.0-20.0 Serum Glucose 217 H 74-106 mg/dL Calcium Level 9.2 8.7-10.4 mg/dL Total Bilirubin 2.7 H 0.2-1.0 mg/dL Aspartate Amino Transferase (AST) 93 H 13-40 U/L Alanine Aminotransferase (ALT) 163 H 7-40 U/L Alkaline Phosphatase 100 46-116 U/L B-Type Natriuretic Peptide 162.33 0-100 pg/mL Total Protein 5.9 5.7-8.2 g/dL Albumin 3.5 3.2-4.8 g/dL Lipase 43 12-53 U/L Current Medications Medications (Trade) Dose Ordered Sig/Tanya Route Start Time Stop Time Status Last Admin Morphine Sulfate 4 mg ONCE ONCE IV 02/05/25 15:45 02/05/25 15:46 DC 02/05/25 17:17 Ondansetron HCl (Zofran) 4 mg ONCE ONCE IV 02/05/25 15:45 02/05/25 15:46 DC 02/05/25 17:17 Pantoprazole Sodium (Protonix) 40 mg ONCE ONCE IV 02/05/25 15:45 02/05/25 15:46 DC 02/05/25 17:16 Morphine Sulfate 4 mg ONCE ONCE IV 02/05/25 19:45 02/05/25 19:47 DC 02/05/25 20:07 Ondansetron HCl (Zofran) 4 mg ONCE ONCE IV 02/05/25 19:45 02/05/25 19:47 DC 02/05/25 20:06 X-Ray, Labs, Meds, VS Comment 69 y.o male with PMHx of CHF, DM, Hyperlipidemia, HTN, liver cirrhosis, seen in ED yesterday for abdominal pain and distention and diagnosed with possible enteritis returns today with persistent abdominal pain Vitals unremarkable Exam remarkable for diffuse abdominal tenderness to palpation with moderate distention. No rebound or guarding. Rhythm strip independently interpreted by me: Sinus rhythm, rate 83, no ectopy. CBC remarkable for WBC 16.3, hemoglobin 18.9, hematocrit 55.9, platelets 123, CMP remarkable for sodium 134, potassium 5.8, CO2 15, BUN 45, creatinine 3.36, glucose 217, total bilirubin 2.7, AST 93, ALT 163, lactate 2.3, 2.3 on repeat, BNP and troponins negative Patient treated with the following in the ED: Morphine 4 mg IV x2, Zofran 4 mg IV, Protonix 40 mg IV, 500 cc 0.9 normal saline IV bolus, Lokelma 10 g p.o., albuterol 20 mg nebulized, sodium bicarb 50 mEq IV, calcium gluconate 1 g IV, cefepime 1 g IV, vancomycin per pharmacy IV On re-evaluation, patient states pain has improved. Vitals were stable. Plan is to admit the patient for gentle IV hydration, electrolyte correction, nephrology and GI evaluation Time of 1ST Reevaluation: 16:23 Reevaluation 1ST: Unchanged Patient Education/Counseling: Diagnosis, Treatment, Prognosis Family Education/Counseling: Diagnosis, Treatment, Prognosis Sepsis Sepsis Reasesment Focused Exam Sepsis focused exam: focus exam completed (Afebrile, vitals stable, capillary refill less than 2 seconds. 30 cc/kilogram bolus not administered due to history of liver cirrhosis and CHF. Aggressive fluid administration could cause harm.), time: (1929) Departure 1 Departure Time of Disposition: 20:19 Impression: Primary Impression: Abdominal pain Qualified Codes: R10.84 - Generalized abdominal pain Additional Impressions: Acute kidney injury Electrolyte imbalance Disposition: ADMITTED INPATIENT Admit to: [facility] Condition: Guarded Critical Care Note Critical Care Time?: Yes (45 min-critical care time only) Critical care comment: Critical care time including multiple bedside re-evaluations, review of lab and imaging studies, and discussion of the case with the admitting provider. Patient is high risk for metabolic decompensation. Stability Stability form required: No I personally scribed for RICHARD PIERRE MD ([facility]) on 02/05/25 at 16:23. Electronically submitted by Anna Molina ([facility]). RICHARD PIERRE MD February 05, 2025 16:23
[2025-02-05 16:32] LABS: Basophils # (auto) 0.1 10 ^3/uL (0-0.2); Basophils % (auto) 0.3 % (0.0-2.0); Eosinophils # (auto) 0 10 ^3/uL (0-0.8); Lymphocytes # (auto) 1.2 10 ^3/uL (0.4-5.4)
[2025-02-05 16:34] LABS: Eosinophils % (auto) 0.1 % (0.0-7.0); Hematocrit 55.9 % (41.0-53.0); Hemoglobin 18.9 g/dL (13.5-17.5); Lymphocytes % (auto) 7.3 % (10.0-50.0); Mean Corpuscular Hemoglobin 32.1 pg (28.0-32.0); Mean Corpuscular Hgb Conc. 33.9 g/dL (32.0-36.0); Mean Corpuscular Volume 94.5 fL (80.0-100.0); Monocytes # (auto) 1.5 10 ^3/uL (0-1.3); Monocytes % (auto) 9.2 % (0.0-12.0); Neutrophils # (auto) 13.6 10 ^3/uL (1.6-8.6); Neutrophils % (auto) 83.1 % (37.0-80.0); Nucleated Red Blood Cells % 1.2 %; Platelet Count (auto) 123 10^3/uL (140-450); Red Blood Cells 5.91 10^6/uL (4.5-5.90); Red Cell Distribution Width 19.3 % (11.8-14.3); White Blood Cell 16.3 10^3/uL (4.4-10.8)
[2025-02-05 16:45] VITALS: PULSE 86; RESP 17; O2SAT 95
[2025-02-05 16:57] LABS: Albumin 3.5 g/dL (3.2-4.8); Alkaline Phosphatase 100 U/L (46-116); Anion Gap 12 (5-15); BUN/Creatinine Ratio 13.4 (10.0-20.0); Calcium 9.2 mg/dL (8.7-10.4); Chloride 107 mmol/L (98-107); Lipase 43 U/L (12-53); Total Protein 5.9 g/dL (5.7-8.2)
[2025-02-05 16:59] LABS: Lactic Acid w/Reflex 2.3 mmol/L (0.4-2.0)
[2025-02-05 17:00] LABS: Alanine Aminotransferase 163 U/L (7-40); Aspartate Aminotransferase 93 U/L (13-40); Bilirubin, Total 2.7 mg/dL (0.2-1.0); Blood Urea Nitrogen 45 mg/dL (9-23); Carbon Dioxide 15 mmol/L (20-31); Glucose 217 mg/dL (74-106); Sodium 134 mmol/L (136-145)
[2025-02-05 17:01] LABS: Potassium 5.8 mmol/L (3.5-5.1)
[2025-02-05] MEDS: PANTOPRAZOLE 40 MG/10 ML VIAL INJ IV ONE (17:16)
[2025-02-05] MEDS: ONDANSETRON HCL 4 MG/2 ML VIAL IV ONE ×2 (17:17→20:06)
[2025-02-05] MEDS: MORPHINE SULFATE 4 MG/ML SYR/VIAL IV ONE ×2 (17:17→20:07)
[2025-02-05 20:00] VITALS: PULSE 84; RESP 18; O2SAT 96
[2025-02-05] MEDS ORDERED: VANCOMYCIN PER PHARMACY 0 MG IV SCH (20:30)
[2025-02-05] MEDS: ALBUTEROL SULF 2.5 MG/0.5ML(0.5%) NEB SOLN NEB ONE (20:35)
[2025-02-05] MEDS: VANCOMYCIN 1GM/200ML PM 200 ML IV ONE (20:46)
[2025-02-05] MEDS: SODIUM CHLORIDE 0.9% 500 ML IV ONE ×2 (20:46→22:15)
[2025-02-05] MEDS: SODIUM BICARB 8.4% 50Meq/50ml SYR Vial IV ONE (20:46)
[2025-02-05] MEDS: CALCIUM GLUC 1,000mg/50ml-NS 50 ML IV ONE (20:46)
[2025-02-05] MEDS: CEFEPIME 1GM/ 50ML 50 ML IV ONE (20:47)
[2025-02-05] MEDS: SODIUM ZIRCONIUM CYCL 10 GM PAK PO ONE (20:47)
[2025-02-05] MEDS ORDERED: DEXTROSE (50%) 50ML SYRG IV PRN (22:15)
--- NOTE | 2025-02-05 23:07 | DVH ---
INDICATION: abd. pain distention TECHNIQUE: Multiple real-time sonographic images of the abdomen were obtained. COMPARISON: US ABDOMEN COMPLETE SONOGRAM on DOS: 07/20/24 FINDINGS: Limited study. Liver is small measuring 11 cm with irregular nodular contour consistent with cirrhosis. No definite focal lesion is identified in the visualized liver. No evidence of intrahepatic biliary ductal dilatation. Common bile duct could not be visualized. Gall bladder is not visualized. Pancreas is not visualized. Spleen is mildly enlarged measuring up to 16.2 cm. Both kidneys appear within normal limits with no hydronephrosis. Small to moderate amount of ascites is noted in the RUQ. IMPRESSION: Cirrhosis. Small to moderate amount of ascites noted in RUQ.
[2025-02-06] MEDS: ACCU-CHEK COMFORT CURVE STRIP VI SCH (00:05)
[2025-02-06] MEDS: InsuLIN REG 1unit/0.01ml Soln (100units/ml) SC SCH (00:32)
[2025-02-06 03:45] VITALS: BP 114/87; PULSE 90; RESP 20; TEMP 97.7; O2SAT 94
[2025-02-06 03:49] VITALS: BP 114/87; PULSE 90; RESP 18; RESP 20; TEMP 97.7; O2SAT 94
[2025-02-06] MEDS: HYDROcodone-ACET 5/325MG TAB PO PRN (03:58)
--- NOTE | 2025-02-06 04:17 | DVHHP2 ---
History of Present Illness Reason for Visit: Abdominal pain History of Present Illness 69-year-old male presents for evaluation of abdominal pain. Patient reports a three day history of diffuse abdominal pain with associated nausea, vomiting, intermittent chills and two day history of constipation. Patient was seen yesterday and a CAT scan was essentially negative for acute pathology and patient was sent home with a diagnosis of enteritis. Today he returns with same symptoms. Past Medical History Diabetes mellitus, dyslipidemia, hypertension, mi, CHF Past Surgical History Appendectomy Family History Noncontributory Smoke: No ALCOHOL: none Drugs: None Lives: with Family Review of Systems Review of Systems Review of systems are currently negative otherwise addressed in HPI. Allergies: Coded Allergies: No Known Drug Allergy (Verified Allergy, Unknown, 05/04/19) Medications Current Medications Medications Dose Ordered Sig/Tanya Route Start Time Stop Time Status Last Admin Dose Admin Vancomycin HCl 0 ml @ 0 mls/hr UD IV 02/05/25 20:30 UNV Ceftriaxone Sodium 50 ml @ 100 mls/hr DAILY@09 IV 02/06/25 09:00 Metronidazole 100 ml @ 100 mls/hr Q8HR IV 02/06/25 06:00 Empaglifozin 10 mg DAILY PO 02/06/25 10:00 Carvedilol 6.25 mg Q12HR PO 02/06/25 10:00 Rifaximin 550 mg BID PO 02/06/25 10:00 Pantoprazole Sodium 40 mg DAILY IV 02/06/25 10:00 Diagnostic Test (Pha) 1 strip Q6HR 02/06/25 00:00 02/06/25 00:05 1 STRIP Insulin Human Regular Q6HR SC 02/06/25 00:00 02/06/25 00:32 4 UNITS Dextrose 50 ml UD PRN IV 02/05/25 22:15 Acetaminophen/ Hydrocodone Bitart 1 tab Q4HP PRN PO 02/05/25 22:15 02/06/25 03:58 1 TAB Ondansetron HCl 4 mg Q4HP PRN IV 02/05/25 22:15 Acetaminophen 650 mg Q6HP PRN PO 02/05/25 22:15 Docusate Sodium 100 mg BID PO 02/06/25 10:00 Exam Vital Signs Vital Signs Date Time Temp Pulse Resp B/P (MAP) Pulse Ox O2 Delivery O2 Flow Rate FiO2 02/06/25 02:00 76 16 140/81 (100) 97 02/05/25 20:38 Room Air* 0 21 02/05/25 20:00 97.1 97.1 Exam Gen: 69-year-old male in mild distress Skin: Warm, dry, normal color and texture, no rash. HEENT: Normocephalic atraumatic, mucous membranes moist and pink. Neck: Cervical and supraclavicular nodes normal without enlargement, trachea is midline, thyroid gland is normal without masses. Pulmonary: Clear to auscultation and percussion bilaterally. Cardiac: Regular rate and rhythm. No murmur Abdomen: Soft, diffuse tenderness, mild distention, bowel sounds present all 4 quadrants, no guarding, no rigidity, no organomegaly. Extremities: No cyanosis, clubbing, no edema Neuro: Cranial nerves II through XII grossly intact, normal affect and speech, no focal motor deficits. Labs/Xrays ORDERING PHYSICIAN: RICHARD PIERRE MD PROCEDURE(s): ABPL - CT AB PEL WO CON-NO ORAL OR IV REASON: diffuse abdominal pain, distention ORDER NUMBER(s): [id number], ACCESSION NUMBER(s): [id number] Exam: CT CT AB PEL WO CON-NO ORAL OR IV History: diffuse abdominal pain, distention Comparison Study: 12/23/2023 TECHNIQUE: Multidetector CT of the abdomen and pelvis without IV contrast. Axial, coronal and sagittal multiplanar reformats were obtained from the axial data set by the technologist. Radiation Dose Information: CT Dose: CTDI volume is 23.94 mGy. Dose-length product is 1293.46 mGy*cm FINDINGS: The lung bases are clear. Partially visualized heart is unremarkable. Cirrhotic appearing liver with recanalization of the umbilical vein and splenorenal varices. Spleen, gallbladder, pancreas and adrenal glands are unremarkable. Punctate nonobstructing left renal calculus. Otherwise, Kidneys, ureters and urinary bladder unremarkable. Prostate measures 3.6 x 5 x 3.5 cm. Nonspecific foci of calcification within the pelvis. Stomach is unremarkable. Fluid-filled small bowel loops without significant distention. There is mesenteric edema of the right hemiabdomen. Appendix is not definitely visualized with surgical clips within the right lower abdominal quadrant adjacent to the cecum. Small to moderate amount of fecal material within the colon. Trace to mild ascites over the perihepatic region and within the pelvis. No evidence of intraperitoneal free air. No evidence of aortic aneurysm . Mild atherosclerotic calcification of the aorta. No significant lymphadenopathy. Small fat containing umbilical hernia. Small fat containing left inguinal hernia. Minimal body wall edema. No destructive osseous lesions noted. IMPRESSION: Cirrhotic appearing liver with signs of portal hypertension. Trace to small perihepatic and intrapelvic free fluid with mesenteric edema with in the right hemiabdomen which may be associated with the cirrhosis with enteritis not excluded. RING PHYSICIAN: RICHARD PIERRE MD PROCEDURE(s): ABPL - CT AB PEL WO CON-NO ORAL OR IV REASON: diffuse abdominal pain, distention ORDER NUMBER(s): [id number], ACCESSION NUMBER(s): [id number] Exam: CT CT AB PEL WO CON-NO ORAL OR IV History: diffuse abdominal pain, distention Comparison Study: 12/23/2023 TECHNIQUE: Multidetector CT of the abdomen and pelvis without IV contrast. Axial, coronal and sagittal multiplanar reformats were obtained from the axial data set by the technologist. Radiation Dose Information: CT Dose: CTDI volume is 23.94 mGy. Dose-length product is 1293.46 mGy*cm FINDINGS: The lung bases are clear. Partially visualized heart is unremarkable. Cirrhotic appearing liver with recanalization of the umbilical vein and splenorenal varices. Spleen, gallbladder, pancreas and adrenal glands are unremarkable. Punctate nonobstructing left renal calculus. Otherwise, Kidneys, ureters and urinary bladder unremarkable. Prostate measures 3.6 x 5 x 3.5 cm. Nonspecific foci of calcification within the pelvis. Stomach is unremarkable. Fluid-filled small bowel loops without significant distention. There is mesenteric edema of the right hemiabdomen. Appendix is not definitely visualized with surgical clips within the right lower abdominal quadrant adjacent to the cecum. Small to moderate amount of fecal material within the colon. Trace to mild ascites over the perihepatic region and within the pelvis. No evidence of intraperitoneal free air. No evidence of aortic aneurysm . Mild atherosclerotic calcification of the aorta. No significant lymphadenopathy. Small fat containing umbilical hernia. Small fat containing left inguinal hernia. Minimal body wall edema. No destructive osseous lesions noted. IMPRESSION: Cirrhotic appearing liver with signs of portal hypertension. Trace to small perihepatic and intrapelvic free fluid with mesenteric edema within the right hemiabdomen which may be associated with the cirrhosis with enteritis not excluded. RING PHYSICIAN: WISAM CHOUDHARY PROCEDURE(s): ABDC - ABDOMEN COMPLETE SONOGRAM REASON: abd. pain distention ORDER NUMBER(s): [id number], ACCESSION NUMBER(s): [id number] INDICATION: abd. pain distention TECHNIQUE: Multiple real-time sonographic images of the abdomen were obtained. COMPARISON: US ABDOMEN COMPLETE SONOGRAM on DOS: 07/20/24 FINDINGS: Limited study. Liver is small measuring 11 cm with irregular nodular contour consistent with cirrhosis. No definite focal lesion is identified in the visualized liver. No evidence of intrahepatic biliary ductal dilatation. Common bile duct could not be visualized. Gallbladder is not visualized. Pancreas is not visualized. Spleen is mildly enlarged measuring up to 16.2 cm. Both kidneys appear within normal limits with no hydronephrosis. Small to moderate amount of ascites is noted in the RUQ. IMPRESSION: Cirrhosis. Small to moderate amount of ascites noted in RUQ. Labs Test 02/06/25 03:00 02/05/25 19:09 02/05/25 16:22 Range/Units Troponin I High Sensitivity 54 </=54 ng/L Lactic Acid Level 2.3 *H 0.4-2.0 mmol/L White Blood Count 16.3 #H 4.4-10.8 10^3/uL Red Blood Count 5.91 H 4.5-5.90 10^6/uL Hemoglobin 18.9 H 13.5-17.5 g/dL Hematocrit 55.9 H 41.0-53.0 % Mean Corpuscular Volume 94.5 80.0-100.0 fL Mean Corpuscular Hemoglobin 32.1 H 28.0-32.0 pg Mean Corpuscular Hemoglobin Concent 33.9 32.0-36.0 g/dL Red Cell Distribution Width 19.3 H 11.8-14.3 % Platelet Count 123 L 140-450 10^3/uL Mean Platelet Volume 10.4 6.9-10.8 fL Neutrophils (%) (Auto) 83.1 H 37.0-80.0 % Lymphocytes (%) (Auto) 7.3 L 10.0-50.0 % Monocytes (%) (Auto) 9.2 0.0-12.0 % Eosinophils (%) (Auto) 0.1 0.0-7.0 % Basophils (%) (Auto) 0.3 0.0-2.0 % Neutrophils # (Auto) 13.6 H 1.6-8.6 10 ^3/uL Lymphocytes # (Auto) 1.2 0.4-5.4 10 ^3/uL Monocytes # (Auto) 1.5 H 0-1.3 10 ^3/uL Eosinophils # (Auto) 0 0-0.8 10 ^3/uL Basophils # (Auto) 0.1 0-0.2 10 ^3/uL Nucleated Red Blood Cells 1.2 % Sodium Level 134 #L 136-145 mmol/L Potassium Level 5.8 *H 3.5-5.1 mmol/L Chloride Level 107 # 98-107 mmol/L Carbon Dioxide Level 15 L 20-31 mmol/L Anion Gap 12 5-15 Blood Urea Nitrogen 45 #H 9-23 mg/dL Creatinine 3.36 H 0.700-1.30 mg/dL Glomerular Filtration Rate Calc 19 >90 mL/min BUN/Creatinine Ratio 13.4 10.0-20.0 Serum Glucose 217 H 74-106 mg/dL Calcium Level 9.2 8.7-10.4 mg/dL Total Bilirubin 2.7 H 0.2-1.0 mg/dL Aspartate Amino Transferase (AST) 93 H 13-40 U/L Alanine Aminotransferase (ALT) 163 H 7-40 U/L Alkaline Phosphatase 100 46-116 U/L B-Type Natriuretic Peptide 162.33 0-100 pg/mL Total Protein 5.9 5.7-8.2 g/dL Albumin 3.5 3.2-4.8 g/dL Lipase 43 12-53 U/L Assessment/Plan Assessment/Plan Assessment Acute abdominal pain Acute renal failure with hyperkalemia Diabetes mellitus Mild transaminitis Plan Admit the patient to [facility] to the hospitalist GI consult Nephrology consult Resume home medications Continue treatment per orders. Plan discussed with: Patient My Orders Orders - CHOUDHARY,ALEXSANDRA AGACNP Procedure Category Date Status Time Abdomen Complete US 02/05/25 Resulted Sonogram 22:04 Ceftriaxone 1gm/50ml PHA 02/06/25 In Process D5w (Rocephin) 09:00 Metronidazole PHA 02/06/25 In Process 500mg/100ml (Flagyl 06:00 Empagliflozin PHA 02/06/25 In Process (Jardiance) 10:00 Carvedilol Tablet PHA 02/06/25 In Process (Coreg Tablet) 10:00 Rifaximin (Xifaxan) PHA 02/06/25 In Process 10:00 Pantoprazole PHA 02/06/25 In Process (Protonix) 10:00 Glucose Blood PHA 02/06/25 In Process (Accu-Chek Comfort 00:00 Insulin R (Human) PHA 02/06/25 In Process (Insulin R) 00:00 Dextrose 50% Syringe PHA 02/05/25 In Process 22:15 Admit ADMIT 02/05/25 Transmitted 22:04 Hydrocodone-Acet PHA 02/05/25 In Process 5/325mg Tab ([place] 22:15 Ondansetron Hcl PHA 02/05/25 In Process (Zofran) 22:15 Comprehensive LAB 02/06/25 Logged Metabolic Panel 04:00 Condition: Stable JANET 02/05/25 In Process 22:04 Acetaminophen Tablet PHA 02/05/25 In Process (Tylenol Tablet) 22:15 Clear Liq Diet DIET 02/06/25 Transmitted Breakfast Bedrest With Bathroom JANET 02/05/25 In Process Privileg 22:04 * [facility] [place] CONS 02/05/25 Transmitted 22:04 Docusate Sodium PHA 02/06/25 In Process Capsule (Colace 10:00 *[facility] CONS 02/05/25 Transmitted -[place] 22:04 Date of Service: February 05, 2025 Billing Provider: WISAM CHOUDHARY Common Visit Codes: [id number] INP/OBS CARE (HIGH) WISAM CHOUDHARY February 06, 2025 04:17
[2025-02-06] MEDS: metroNIDAZOLE 500MG/100ML 100 ML IV SCH (05:22)
[2025-02-06 05:37] LABS: Basophils # (auto) 0.1 10 ^3/uL (0-0.2); Basophils % (auto) 0.3 % (0.0-2.0); Eosinophils # (auto) 0 10 ^3/uL (0-0.8); Hematocrit 48.3 % (41.0-53.0); Hemoglobin 16.6 g/dL (13.5-17.5); Lymphocytes # (auto) 1.3 10 ^3/uL (0.4-5.4); Lymphocytes % (auto) 6.9 % (10.0-50.0); Mean Corpuscular Hemoglobin 32.3 pg (28.0-32.0); Mean Corpuscular Hgb Conc. 34.4 g/dL (32.0-36.0); Monocytes # (auto) 1.5 10 ^3/uL (0-1.3); Monocytes % (auto) 7.8 % (0.0-12.0); Neutrophils # (auto) 16.1 10 ^3/uL (1.6-8.6); Nucleated Red Blood Cells % 0.2 %; Platelet Count (auto) 118 10^3/uL (140-450); Red Blood Cells 5.14 10^6/uL (4.5-5.90); Red Cell Distribution Width 18.5 % (11.8-14.3)
[2025-02-06 05:57] LABS: Alkaline Phosphatase 88 U/L (46-116); Anion Gap 17 (5-15); BUN/Creatinine Ratio 13.9 (10.0-20.0); Calcium 8.9 mg/dL (8.7-10.4); Chloride 102 mmol/L (98-107)
[2025-02-06 06:05] LABS: Blood Urea Nitrogen 60 mg/dL (9-23); Carbon Dioxide 13 mmol/L (20-31); Glucose 162 mg/dL (74-106); Sodium 132 mmol/L (136-145)
[2025-02-06 06:06] LABS: Alanine Aminotransferase 143 U/L (7-40); Albumin 2.9 g/dL (3.2-4.8); Aspartate Aminotransferase 76 U/L (13-40); Bilirubin, Total 2.4 mg/dL (0.2-1.0); Total Protein 5.2 g/dL (5.7-8.2)
[2025-02-06 06:07] LABS: Potassium 5.8 mmol/L (3.5-5.1)
--- NOTE | 2025-02-06 08:59 | DVHCONRES ---
Date Seen: February 06, 2025 Resident Creating Document: TYRELL TAVAREZ RESIDENT History of Present Illness This is a 69-year-old male patient with past medical history of recurrent admissions due to hepatic encephalopathy secondary to alcoholic liver cirrhosis, hyperammonemia, history of 2 GA 30 years back, CKD 3B, diabetes mellitus type 2 for 15 years, heart failure with preserved ejection fraction at 60%, colonoscopy status post polypectomy in 2019, paroxysmal atrial fibrillation, splenomegaly, Patrizia UTI in 02/2024, pneumonia status post intubation in 2018, hypertension and hyperlipidemia who presented to the ER with the chief complaint of dizziness and abdominal pain for the past 4x days. Patient reports that on 02/02 he was helping his son, and was working outside in the sun when he experienced dizziness but did not experience any fall, syncope, confusion. Patient since worsening abdominal distention, and diffuse lower abdominal pain. Reports last bowel movement was on 02/03, says that his abdomen was bloated and therefore he induced vomiting himself denies nausea or vomiting. Denies disorientation and confusion during the past week. Reports compliance to lactulose 30 daily. Patient is A&O x4, alert and oriented to name, place, time and situation. Last drink was 1996. On arrival to the ER, patient was vitally stable, WBC increased from 16-19, platelets 123 which is chronic. BMP showed sodium 146, now 132, potassium elevated at 5.8, was 4.5 on 02/04. BUN/creatinine went 26/1.7 GFR 42 on 02/04/2025, now 60/4.3, GFR 14. Patient had been anion gap metabolic acidosis. Lactic acid elevated at 2.3. Ammonia level 180, was 78 12/28. Patient was recently hospitalized in this facility on 07/13/2024 and was diagnosed with hepatic encephalopathy and diastolic heart failure exacerbation. He was A&O x4. Ammonia was 93. Past medical history: recurrent admissions due to hepatic encephalopathy secondary to alcoholic liver cirrhosis, hyperammonemia, history of 2 GA 30 years back, CKD 3B, diabetes mellitus type 2, heart failure with preserved ejection fraction at 60%, colonoscopy status post polypectomy in 2019, paroxysmal atrial fibrillation, splenomegaly, UTI, pneumonia status post intubation in 2018, hyper tension and hyperlipidemia Past Surgical History: pneumonia status post intubation in 2018 Family History: None Social history: Lives with family, last drink 1986, denies smoking or illicit drug use PCP Dr. Turner Home medications: Lactulose t.i.d., spironolactone 100 mg, Coreg 6.2 5 mg b.i.d. , glipizide, atorvastatin patient recently stopped taking Sildenafil 100 mg, lisinopril 20 mg, Lasix 40 mg, amlodipine 10 mg, Finerenone in 20 mg, fexofenadine Patient seen and examined at the bedside. No acute distress. Abdomen has shifting dullness, distended, hyperactive bowel sounds. Family History: Alcoholism G8 FATHER, Onset:Unknown Cirrhosis of liver G8 FATHER Colon cancer G8 FATHER FH: heart attack FH: liver cancer FH: stomach cancer Hepatic cirrhosis G8 FATHER, Onset:Unknown Hypercholesterolemia G8 MOTHER Hypertension G8 MOTHER Ischemic heart disease G8 MOTHER Allergies: Coded Allergies: No Known Drug Allergy (Verified Allergy, Unknown, 05/04/19) Home Meds Active Scripts Ciprofloxacin Hcl (Cipro) 500 Mg Tab, 1 TAB PO BID for 7 Days, #14 TAB Prov:RICHARD PIERRE MD 02/04/25 Metronidazole (Flagyl) 500 Mg Tab, 1 TAB PO TID for 7 Days, #21 TAB Prov:RICHARD PIERRE MD 02/04/25 Dicyclomine Hcl (BENTYL CAPSULE) 10 Mg Cp, 2 CAP PO Q6HP PRN, #60 CAP 11 Refills Prov:RICHARD PIERRE MD 02/04/25 Tramadol Hcl (Tramadol Hcl) 50 Mg Tab, 50 MG PO Q6HP PRN, #20 TAB Prov:RICHARD PIERRE MD 02/04/25 Pantoprazole Sodium Sesquihydr (Protonix) 40 Mg Tab, 40 MG PO DAILY, #30 TAB Prov:GUILLE MORALES PAC 12/22/24 Cephalexin (KEFLEX CAPSULE) 250 Mg Cp, 500 MG PO BID for 5 Days, #20 CAP Prov:EMERALD ALCANTAR MD 07/26/24 Lactulose (Constulose) 10 Gm/15 Ml Candis, 30 ML PO Q6H for 30 Days, #3600 ML Prov:EMERALD ALCANTAR MD 07/26/24 Spironolactone (Aldactone) 25 Mg Tab, 100 MG PO DAILY for 60 Days, #240 TAB Prov:MARK ELIAS 07/21/24 Rifaximin (Xifaxan) 550 Mg Tab, 550 MG PO BID for 30 Days, #60 TAB Prov:MICHELLEKIERABELEN RESIDENT 03/06/24 Reported Medications Insulin Lispro (Humalog Kwikpen) 100 Unit/Ml Inj, 100 UNIT SC, INJ 07/20/24 Furosemide (Furosemide) 40 Mg Tab, 1 TAB PO DAILY, #30 TAB 5 Refills 07/20/24 Insulin Glargine (Lantus Solostar) 100 Unit/Ml Inj, 35 UNIT SC BID 03/06/24 Atorvastatin Calcium (Lipitor) 40 Mg Tab, 1 TAB PO DAILY 03/06/24 Dapagliflozin Propanediol (Farxiga) 10 Mg Tab, 10 MG PO DAILY, TAB 03/05/24 Amlodipine Besylate (Amlodipine Besylate) 10 Mg Tab, 1 TAB PO DAILY 03/05/24 Lisinopril (Lisinopril) 20 Mg Tab, 1 TAB PO DAILY 03/05/24 Carvedilol (Carvedilol) 6.25 Mg Tab, 1 TAB PO BID 03/05/24 Glipizide (Glipizide Er) 10 Mg Tab, 10 MG PO BID, TAB 01/16/19 Current Medications Current Medications Medications (Trade) Dose Ordered Sig/Tanya Route PRN Reason Start Time Stop Time Status Last Admin Vancomycin HCl 0 ml @ 0 mls/hr UD IV 02/05/25 20:30 02/06/25 04:11 DC Ceftriaxone Sodium 50 ml @ 100 mls/hr DAILY@09 IV 02/06/25 09:00 Metronidazole 100 ml @ 100 mls/hr Q8HR IV 02/06/25 06:00 02/06/25 05:22 Empaglifozin (Jardiance) 10 mg DAILY PO 02/06/25 10:00 Carvedilol (Coreg Tablet) 6.25 mg Q12HR PO 02/06/25 10:00 Rifaximin (Xifaxan) 550 mg BID PO 02/06/25 10:00 Pantoprazole Sodium (Protonix) 40 mg DAILY IV 02/06/25 10:00 Diagnostic Test (Pha) (Accu-Chek Comfort Curve T) 1 strip Q6HR 02/06/25 00:00 02/06/25 05:14 Insulin Human Regular (InsuLIN R) Q6HR SC 02/06/25 00:00 02/06/25 05:23 Dextrose 50 ml UD PRN IV Blood Sugar LESS THAN 60 02/05/25 22:15 Acetaminophen/ Hydrocodone Bitart ([place] 5/325MG Tab) 1 tab Q4HP PRN PO MODERATE PAIN (4-6 PAIN SCALE) 02/05/25 22:15 02/06/25 03:58 Ondansetron HCl (Zofran) 4 mg Q4HP PRN IV NAUSEA / VOMITING 02/05/25 22:15 Acetaminophen (Tylenol Tablet) 650 mg Q6HP PRN PO PAIN SCALE 1-3 OR TEMP>100.4 02/05/25 22:15 Docusate Sodium (Colace Capsule) 100 mg BID PO 02/06/25 10:00 Vital Signs Vital Signs Date Time Temp Pulse Resp B/P (MAP) Pulse Ox O2 Delivery O2 Flow Rate FiO2 02/06/25 03:49 18 Room Air* 0 21 02/06/25 03:49 97.7 90 114/87 (96) 94 97.7 Physical Exam Patient lying in bed, in no acute distress General: Well-built, afebrile, scleral icterus, mucosae are moist Cardiovascular: Regular S1 and S2. No murmurs, gallops or rubs. No JVD el evation. trace bilateral pedal edema Respiratory: Normal B/L air entry on room air. Clear lung sounds on auscultation Abdomen: Soft, nontender, distended, hyperactive bowel sounds, no rebound tenderness, no organomegaly, no masses Genitourinary: Deferred MSK/skin: Mobilizes 4 limbs. Skin is dry and warm Neurological: No motor, no sensitive deficits, normal speech. Pupils are isocoric and reactive. Psych/Mental Status: A/Ox3 Labs/Diagnostic Data Labs Test 02/06/25 05:14 02/06/25 04:42 02/06/25 03:00 02/05/25 19:09 Range/Units POC Glucose 172 H 70-106 mg/dl White Blood Count 19.0 H 4.4-10.8 10^3/uL Red Blood Count 5.14 4.5-5.90 10^6/uL Hemoglobin 16.6 13.5-17.5 g/dL Hematocrit 48.3 # 41.0-53.0 % Mean Corpuscular Volume 94.0 80.0-100.0 fL Mean Corpuscular Hemoglobin 32.3 H 28.0-32.0 pg Mean Corpuscular Hemoglobin Concent 34.4 32.0-36.0 g/dL Red Cell Distribution Width 18.5 H 11.8-14.3 % Platelet Count 118 L 140-450 10^3/uL Mean Platelet Volume 11.0 H 6.9-10.8 fL Neutrophils (%) (Auto) 85.0 H 37.0-80.0 % Lymphocytes (%) (Auto) 6.9 L 10.0-50.0 % Monocytes (%) (Auto) 7.8 0.0-12.0 % Eosinophils (%) (Auto) 0.0 0.0-7.0 % Basophils (%) (Auto) 0.3 0.0-2.0 % Neutrophils # (Auto) 16.1 H 1.6-8.6 10 ^3/uL Lymphocytes # (Auto) 1.3 0.4-5.4 10 ^3/uL Monocytes # (Auto) 1.5 H 0-1.3 10 ^3/uL Eosinophils # (Auto) 0 0-0.8 10 ^3/uL Basophils # (Auto) 0.1 0-0.2 10 ^3/uL Nucleated Red Blood Cells 0.2 % Sodium Level 132 L 136-145 mmol/L Potassium Level 5.8 *H 3.5-5.1 mmol/L Chloride Level 102 98-107 mmol/L Carbon Dioxide Level 13 L 20-31 mmol/L Anion Gap 17 H 5-15 Blood Urea Nitrogen 60 #H 9-23 mg/dL Creatinine 4.31 H 0.700-1.30 mg/dL Glomerular Filtration Rate Calc 14 >90 mL/min BUN/Creatinine Ratio 13.9 10.0-20.0 Serum Glucose 162 H 74-106 mg/dL Calcium Level 8.9 8.7-10.4 mg/dL Total Bilirubin 2.4 H 0.2-1.0 mg/dL Aspartate Amino Transferase (AST) 76 H 13-40 U/L Alanine Aminotransferase (ALT) 143 H 7-40 U/L Alkaline Phosphatase 88 46-116 U/L Ammonia 180 *H 11-32 umol/L Total Protein 5.2 L 5.7-8.2 g/dL Albumin 2.9 L 3.2-4.8 g/dL Random Vancomycin Level 16.3 H 5-10 ug/mL Troponin I High Sensitivity 54 </=54 ng/L Lactic Acid Level 2.3 *H 0.4-2.0 mmol/L Test 02/05/25 16:22 Range/Units B-Type Natriuretic Peptide 162.33 0-100 pg/mL Lipase 43 12-53 U/L Assessment Acute kidney injury, likely prerenal, rule out HRS versus ATN Rule out urinary obstruction Sepsis due to SBO versus ileus Decompensated liver cirrhosis History of hepatic encephalopathy Hyperkalemia Heart failure with preserved ejection fraction Diabetes mellitus type 2 History of paroxysmal AFib History of pneumonia status and intubation History of GA Hypertension Chronic thrombocytopenia Morbid obesity Plan: Recommend NPO, NG decompression, surgical consultation IR Consulted for Paracentesis, no ascites Continue IV ceftriaxone 2 g daily Follow up with bladder scan to rule out obstruction 1 L D5 with 3 ampules of bicarb Follow up with urine sodium, urine protein, urine creatinine Follow up with chest x-ray Hyperkalemia protocol initiated Plan discussed with patient in which all questions have been answered Case discussed with Dr. Goodson Addendum Patient seen and examined, plan discussed with resident. Agree with above, we will follow closely d/w Plan discussed with: Patient TYRELL TAVAREZ RESIDENT February 06, 2025 08:59 MELODY GOODSON MD February 06, 2025 17:04
[2025-02-06 09:00] VITALS: BP 118/81; PULSE 85; RESP 18; TEMP 98.6; O2SAT 94
[2025-02-06] MEDS ORDERED: EMPAGLIFLOZIN 10 MG TAB PO SCH (10:00)
[2025-02-06] MEDS: cefTRIAXone 1GM/50ML D5W 50 ML IV SCH (10:01)
[2025-02-06] MEDS: LACTULOSE 20Gm/30ML SOLN PO ONE (10:01)
[2025-02-06] MEDS: PANTOPRAZOLE 40 MG/10 ML VIAL INJ IV SCH (10:01)
[2025-02-06] MEDS: DOCUSATE SOD 100 MG CAP PO SCH (10:02)
[2025-02-06] MEDS: rifAXIMin 550 MG TAB PO SCH (10:02)
[2025-02-06] MEDS: SODIUM ZIRCONIUM CYCL 10 GM PAK PO ONE (10:03)
[2025-02-06] MEDS: CARVEDILOL 3.125 MG TAB PO SCH (10:04)
[2025-02-06] MEDS: SODIUM BICARB 8.4% 50Meq/50ml SYR INJ IV ONE (10:04)
[2025-02-06 10:23] LABS: Base Excess -15.8 mmol/L (-2.0-3.0)
[2025-02-06 10:27] LABS: Lactic Acid w/Reflex 5.4 mmol/L (0.4-2.0)
[2025-02-06 10:32] LABS: INR 1.44 (0.9-1.15); Partial Thromboplastin Time 41.9 SEC (24.5-34.5); Prothrombin Time 14.7 sec (9.3-11.8)
[2025-02-06] MEDS: ALBUTEROL SULF 2.5 MG/0.5ML(0.5%) NEB SOLN NEB ONE (10:43)
[2025-02-06] MEDS: DEXTROSE (50%) 50ML SYRG IV ONE (10:46)
[2025-02-06] MEDS: InsuLIN REG 1unit/0.01ml Soln (100units/ml) IV ONE (11:00)
[2025-02-06] MEDS: SODIUM BICARB 50mEq/50ml Vial 150 ML in D5W 5% 1,000 ML IV ONE (12:15)
[2025-02-06] MEDS ORDERED: cefTRIAXone 2GM/50ML D5W 50 ML IV ONE (12:15)
--- NOTE | 2025-02-06 12:24 | ECG ---
[facility] Test Date: 2025-02-06 Test Time: 11:28:28 Pat Name: DARELL MCKEON Department: ER Room: 0285 Gender: M Processing Specialist: aryan : 1955 Requested By: RICHARD WALSH Order Number: [id number] Reading MD: Jerry Oropeza Measurements Intervals [place] Rate: 84 P: -8 MN: 203 QRS: -42 QRSD: 101 T: -11 QT: 391 QTc: 463 Interpretive Statements Sinus rhythm Inferior infarct, age indeterminate Anterior infarct, old Electronically Signed On 02-08-2025 21:17:26 PDT by Jerry Oropeza Please click the below link to view image of tracing.
--- NOTE | 2025-02-06 13:09 | DVH ---
Date: 02/06/2025 12:28 PM Examination: XY KUB ABDOMEN SINGLE VIEW History: Hyperactive bowel sounds Comparison: None TECHNIQUE: Frontal views of the abdomen was obtained. FINDINGS: Diffusely dilated loops of small bowel measuring up to 5 cm. IMPRESSION: Diffusely dilated loops of small bowel measuring up to 5 cm. Findings could represent small-bowel ob struction versus ileus.
[2025-02-06] MEDS: cefTRIAXone 1GM/50ML D5W 50 ML IV ONE (13:25)
[2025-02-06] MEDS: SODIUM ZIRCONIUM CYCL 10 GM PAK PO SCH (13:32)
--- NOTE | 2025-02-06 13:47 | DVHINCON2 ---
GI Consult Consult Note GI consult note Date of Consultation: 02/06/2025 Chief Complaint: Abdominal pain Referring Physician: Satish FOLEY H&P: 69-year-old male with past medical history of diabetes mellitus, dyslipidemia, hypertension, SD and CHF presented to ER with abdominal pain Patient complains of diffuse abdominal pain for four days, pain is constant per patient. No nausea or vomiting. Patient admits to having dark stool. Last bowel movement on Wednesday Patient has history of heavy alcohol use in the past, quit 16 years ago. Denies history of hepatitis Last colonoscopy 2019 Dr. 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 Family History: Noncontributory Review of Systems: Constitutional: no fever, chill, weight loss HEENT: no eye pain, no hearing loss, no oral lesion, no scleral icterus Heart: no chest pain, no chest pressure Lung: no cough, no dyspnea with exertion Abdomen: see HPI Physical exam: General: NAD, AAOX3 Chest: lung silva clear to auscultation, labored breathing noted Heart: RRR, no murmur Abdomen: Moderate-distended, mild generalized tenderness to palpation, +BS Labs: Labs Test 02/06/25 11:44 02/06/25 10:05 02/06/25 09:50 02/06/25 04:42 Range/Units POC Glucose 299 H 70-106 mg/dl Blood Gas Specimen Type Arterial Blood Gas Sample Site Right radial Blood Gas Patient Temperature 37.0 Arterial Blood Date Drawn [id number] Arterial Blood pH 7.248 *L 7.350-7.450 Arterial Blood Partial Pressure CO2 21.5 L 35.0-48.0 mmHg Arterial Blood Partial Pressure O2 81.5 L 83.0-108.0 mmHg Arterial Blood HCO3 9.2 L 21.0-28.0 mmol/L Arterial Blood Oxygen Saturation 94.2 94.0-98.0 % Arterial Blood Base Excess -15.8 L -2.0-3.0 mmol/L Arterial Blood Oxyhemoglobin 92.9 L 94.0-98.0 % Arterial Blood Carboxyhemoglobin 0.6 0.5-1.5 % Arterial Blood Methemoglobin 0.8 0.0-1.5 % Charan Test Modified Blood Gas Total Hemoglobin 15.20 13.5-17.5 g/dL Blood Gas Modality Room air Blood Gas Spontaneous Rate 28 FiO2 % 21.0 Specimen Drawn By Oniel richard Blood Gas Critical Value Read Back Yes Blood Gas Notified Whom aurea Duran Blood Gas Notified Time [id number] Blood Gas Notified By Oniel richard Prothrombin Time 14.7 H 9.3-11.8 sec Prothrombin Time INR 1.44 H 0.9-1.15 Activated Partial Thromboplast Time 41.9 H 24.5-34.5 SEC Lactic Acid Level 5.4 *H 0.4-2.0 mmol/L White Blood Count 19.0 H 4.4-10.8 10^3/uL Red Blood Count 5.14 4.5-5.90 10^6/uL Hemoglobin 16.6 13.5-17.5 g/dL Hematocrit 48.3 # 41.0-53.0 % Mean Corpuscular Volume 94.0 80.0-100.0 fL Mean Corpuscular Hemoglobin 32.3 H 28.0-32.0 pg Mean Corpuscular Hemoglobin Concent 34.4 32.0-36.0 g/dL Red Cell Distribution Width 18.5 H 11.8-14.3 % Platelet Count 118 L 140-450 10^3/uL Mean Platelet Volume 11.0 H 6.9-10.8 fL Neutrophils (%) (Auto) 85.0 H 37.0-80.0 % Lymphocytes (%) (Auto) 6.9 L 10.0-50.0 % Monocytes (%) (Auto) 7.8 0.0-12.0 % Eosinophils (%) (Auto) 0.0 0.0-7.0 % Basophils (%) (Auto) 0.3 0.0-2.0 % Neutrophils # (Auto) 16.1 H 1.6-8.6 10 ^3/uL Lymphocytes # (Auto) 1.3 0.4-5.4 10 ^3/uL Monocytes # (Auto) 1.5 H 0-1.3 10 ^3/uL Eosinophils # (Auto) 0 0-0.8 10 ^3/uL Basophils # (Auto) 0.1 0-0.2 10 ^3/uL Nucleated Red Blood Cells 0.2 % Sodium Level 132 L 136-145 mmol/L Potassium Level 5.8 *H 3.5-5.1 mmol/L Chloride Level 102 98-107 mmol/L Carbon Dioxide Level 13 L 20-31 mmol/L Anion Gap 17 H 5-15 Blood Urea Nitrogen 60 #H 9-23 mg/dL Creatinine 4.31 H 0.700-1.30 mg/dL Glomerular Filtration Rate Calc 14 >90 mL/min BUN/Creatinine Ratio 13.9 10.0-20.0 Serum Glucose 162 H 74-106 mg/dL Calcium Level 8.9 8.7-10.4 mg/dL Total Bilirubin 2.4 H 0.2-1.0 mg/dL Aspartate Amino Transferase (AST) 76 H 13-40 U/L Alanine Aminotransferase (ALT) 143 H 7-40 U/L Alkaline Phosphatase 88 46-116 U/L Ammonia 180 *H 11-32 umol/L Total Protein 5.2 L 5.7-8.2 g/dL Albumin 2.9 L 3.2-4.8 g/dL Random Vancomycin Level 16.3 H 5-10 ug/mL Test 02/06/25 03:00 02/05/25 16:22 Range/Units Troponin I High Sensitivity 54 </=54 ng/L B-Type Natriuretic Peptide 162.33 0-100 pg/mL Lipase 43 12-53 U/L Imaging: Abdominal ultrasound IMPRESSION: Cirrhosis. Small to moderate amount of ascites noted in RUQ. Assessment: Liver cirrhosis History of alcohol use Hepatic encephalopathy JANET on CKD Abdominal pain Ascites Plan: Discussed with Dr. Herzog Hepatitis panel negative 2023 Paracentesis Monitor labs Continue lactulose Continue antibiotic treatment Recommend outpatient colonoscopy when patient is stable, with history of polypectomy in past We will continue to follow patient Thank you for this consult Date of Service: February 06, 2025 Billing Provider: CARLOS ROBERTS Common Visit Codes: CONSULT ONLY Consultation Codes: [id number] CONSULT <60MIN CARLOS ROBERTS February 06, 2025 13:47
--- NOTE | 2025-02-06 14:12 | DVH ---
US ABDOMEN LIMITED HISTORY: ASCITES COMPARISON: None TECHNIQUE: Transverse and longitudinal sonographic images were obtained of all four quadrants of the abdomen and pelvis. FINDINGS: IMPRESSION: There is trace ascites and too little for paracentesis.
--- NOTE | 2025-02-06 14:31 | DVHPN2 ---
Subjective 69-year-old male with a history of liver cirrhosis comes with a chief complaint of abdominal pain and nausea and vomiting for 3 days with constipation He has recurrent admissions for hepatic encephalopathy His white count is 19 Platelets 118 Ammonia is 180 Creatinine is 3.3 and it went up to 4.3 today from a baseline of 1 2 to previously Changes from previous H/P or p: Changes Objective Vitals Vital Signs Date Time Temp Pulse Resp B/P (MAP) Pulse Ox O2 Delivery O2 Flow Rate FiO2 02/06/25 11:04 78 116/68 02/06/25 10:43 28 98 Room Air* 0 21 02/06/25 09:00 98.6 98.6 Intake/Output Intake and Output 02/06/25 07:00 Intake Total 1020 ml Balance 1020 ml Intake Oral 120 ml IV Total 900 ml # Voids 1 General Appearance: Alert, Oriented X3, Cooperative, No acute distress Lungs: Clear to auscultation Cardiovascular: Regular rate, Normal S1, Normal S2 Abdomen: Normal bowel sounds, Other (Distended and generalized tenderness) Extremities: Other (1+ edema bilaterally in the lower extremities) Medications Current Medications Medications Dose Ordered Sig/Tanya Route Start Time Stop Time Status Last Admin Dose Admin Metronidazole 100 ml @ 100 mls/hr Q8HR IV 02/06/25 06:00 02/06/25 13:32 100 MLS/HR Carvedilol 6.25 mg Q12HR PO 02/06/25 10:00 02/06/25 10:04 6.25 MG Rifaximin 550 mg BID PO 02/06/25 10:00 02/06/25 10:02 550 MG Pantoprazole Sodium 40 mg DAILY IV 02/06/25 10:00 02/06/25 10:01 40 MG Diagnostic Test (Pha) 1 strip Q6HR 02/06/25 00:00 02/06/25 12:11 1 STRIP Insulin Human Regular Q6HR SC 02/06/25 00:00 02/06/25 12:11 6 UNITS Dextrose 50 ml UD PRN IV 02/05/25 22:15 Acetaminophen/ Hydrocodone Bitart 1 tab Q4HP PRN PO 02/05/25 22:15 02/06/25 03:58 1 TAB Ondansetron HCl 4 mg Q4HP PRN IV 02/05/25 22:15 Acetaminophen 650 mg Q6HP PRN PO 02/05/25 22:15 Docusate Sodium 100 mg BID PO 02/06/25 10:00 02/06/25 10:02 100 MG Lactulose 30 ml Q6HR PO 02/06/25 18:00 Zirconium Oxide 10 gm TID PO 02/06/25 14:00 02/08/25 06:01 02/06/25 13:32 10 GM Ceftriaxone Sodium/Dextrose 50 ml @ 50 mls/hr DAILY@0900 IV 02/07/25 09:00 Albumin Human 100 ml @ 100 mls/hr Q8H IV 02/06/25 14:00 02/07/25 06:59 UNV Laboratory Results Laboratory Tests 02/06/25 04:42 Chemistry Test 02/05/25 16:22 02/06/25 04:42 Albumin 3.5 g/dL (3.2-4.8) 2.9 g/dL (3.2-4.8) L Calcium Level 9.2 mg/dL (8.7-10.4) 8.9 mg/dL (8.7-10.4) Total Protein 5.9 g/dL (5.7-8.2) 5.2 g/dL (5.7-8.2) L Coagulation Test 02/06/25 09:50 Prothrombin Time 14.7 sec (9.3-11.8) H Prothrombin Time INR 1.44 (0.9-1.15) H Activated Partial Thromboplast Time 41.9 SEC (24.5-34.5) H Lipid panel Test 02/05/25 16:22 Lipase 43 U/L (12-53) Cardiac Markers Test 02/05/25 16:22 B-Type Natriuretic Peptide 162.33 pg/mL (0-100) LFT Test 02/05/25 16:22 02/06/25 04:42 Alanine Aminotransferase (ALT) 163 U/L (7-40) H 143 U/L (7-40) H Alkaline Phosphatase 100 U/L (46-116) 88 U/L (46-116) Aspartate Amino Transferase (AST) 93 U/L (13-40) H 76 U/L (13-40) H Total Bilirubin 2.7 mg/dL (0.2-1.0) H 2.4 mg/dL (0.2-1.0) H Blood Gas Results Test 02/06/25 10:05 Arterial Blood pH 7.248 (7.350-7.450) FiO2 % 21.0 Assessment/Plan Assessment/Plan Abdominal pain Rule out bowel obstructionsurgical Intractable nausea and vomiting Constipation Hepatic encephalopathy Liver cirrhosis Possible hepatorenal syndrome Acute kidney injury/chronic kidney disease Thrombocytopenia Leukocytosis Type 2 diabetes Hypertension Mixed hyperlipidemia Ascites Lactic acidosis Hyperkalemia Hyponatremia Moderate protein malnutrition Plan Keep NPO Surgical consult Continue lactulose Continue rifaximin GI consult Nephrology consult Paracentesis was attempted, not enough ascites fluids for the procedure to be done Hepatorenal syndrome? : Give albumin IV IV ceftriaxone and Flagyl empirically Full code Advance directives discussed for 20 minute Plan discussed with: Patient My Orders Orders - JOVON LOPEZ MD Procedure Category Date Status Time Abdomen Limited US 02/06/25 Resulted 13:52 Albumin 25% (Albutein) PHA 02/06/25 Logged 14:00 Date of Service: February 06, 2025 Billing Provider: JOVON LOPEZ MD Common Visit Codes: [id number] INP/OBS CARE(HIGH) Secondary Visit Codes: [id number] CARE PLAN 30 MINUTES JOVON LOPEZ MD February 06, 2025 14:31
[2025-02-06] MEDS ORDERED: SODIUM BICARB 50mEq/50ml Vial 150 ML in D5W 5% 1,000 ML IV ONE (15:15)
[2025-02-06 17:10] VITALS: PULSE 80; RESP 20; O2SAT 94
[2025-02-06] MEDS: LACTULOSE 20Gm/30ML SOLN PO SCH (17:29)
[2025-02-06] MEDS: ALBUMIN 25% 100 ML IV SCH (17:30)
--- NOTE | 2025-02-06 17:40 | DVH ---
CHEST RADIOGRAPH Indication: Congestion Technique: Single frontal view of the chest was obtained Comparison: XY CHEST XRAY 1 VIEW on DOS: 02/04/25, XY CHEST PORTABLE on DOS: 07/19/24 FINDINGS: Lines and Tubes: None Lungs: No focal consolidation. Pleura: No effusion. No pneumothorax. Cardiomediastinal contours: Unremarkable Bones: No acute osseous abnormality. IMPRESSION: No acute cardiopulmonary disease.
[2025-02-06 21:14] VITALS: PULSE 87; RESP 24; O2SAT 96
[2025-02-06 21:33] VITALS: BP 127/61; PULSE 82; RESP 18; TEMP 98.4; O2SAT 96
[2025-02-07] VITALS (9 sets, daily range): BP systolic 100–136; BP diastolic 40–81; PULSE 72–80; RESP 16–22; TEMP 97.7–99.3; O2SAT 91–96
[2025-02-07 01:50] LABS: Urine Bacteria None Seen /hpf (None Seen)
[2025-02-07 02:30] LABS: Protein, Urine 62.1 mg/dL (1-14)
[2025-02-07 02:32] LABS: Creatinine, Urine 102.35 mg/dL (30.0-125.0); Urine Protein/Creatinine Ratio 0.61
[2025-02-07 02:39] LABS: Urine Blood 2+ /uL (Negative); Urine Budding Yeast OCCASIONAL /hpf (None Seen); Urine Clarity Clear (Clear); Urine Color Yellow (Yellow); Urine Hyaline Cast FEW /lpf (0 - 2); Urine Mucus FEW (None Seen); Urine Protein, UAD 1+ (Negative); Urine Specific Gravity 1.021 (1.001-1.035); Urine Squamous Epithelial Cell FEW /hpf (<5); Urine Urobilinogen Normal (Negative); Urine WBC 3 /HPF (0-3)
[2025-02-07 07:35] LABS: Basophils # (auto) 0 10 ^3/uL (0-0.2); Basophils % (auto) 0.2 % (0.0-2.0); Eosinophils # (auto) 0 10 ^3/uL (0-0.8); Hematocrit 34.5 % (41.0-53.0); Hemoglobin 12.1 g/dL (13.5-17.5); Lymphocytes # (auto) 1.1 10 ^3/uL (0.4-5.4); Lymphocytes % (auto) 6.1 % (10.0-50.0); Mean Corpuscular Hemoglobin 32.6 pg (28.0-32.0); Mean Corpuscular Volume 92.9 fL (80.0-100.0); Monocytes # (auto) 1.4 10 ^3/uL (0-1.3); Monocytes % (auto) 7.7 % (0.0-12.0); Neutrophils # (auto) 15.1 10 ^3/uL (1.6-8.6); Nucleated Red Blood Cells % 0.1 %; Platelet Count (auto) 115 10^3/uL (140-450); Red Blood Cells 3.71 10^6/uL (4.5-5.90); Red Cell Distribution Width 18.9 % (11.8-14.3); White Blood Cell 17.5 10^3/uL (4.4-10.8)
[2025-02-07 07:50] LABS: INR 1.41 (0.9-1.15); Partial Thromboplastin Time 43.2 SEC (24.5-34.5); Prothrombin Time 14.4 sec (9.3-11.8)
[2025-02-07 07:55] LABS: Albumin 3.5 g/dL (3.2-4.8); Alkaline Phosphatase 70 U/L (46-116); Anion Gap 15 (5-15); BUN/Creatinine Ratio 17.1 (10.0-20.0); Chloride 100 mmol/L (98-107); Magnesium 1.8 mg/dL (1.6-2.6)
[2025-02-07 08:08] LABS: Alanine Aminotransferase 113 U/L (7-40); Aspartate Aminotransferase 52 U/L (13-40); Bilirubin, Total 2.4 mg/dL (0.2-1.0); Calcium 7.4 mg/dL (8.7-10.4); Carbon Dioxide 17 mmol/L (20-31); Glucose 175 mg/dL (74-106); Lipase 65 U/L (12-53); Potassium 5.5 mmol/L (3.5-5.1); Sodium 132 mmol/L (136-145); Total Protein 5.5 g/dL (5.7-8.2)
[2025-02-07 08:09] LABS: Blood Urea Nitrogen 84 mg/dL (9-23)
--- NOTE | 2025-02-07 10:45 | DVHPN2 ---
Subjective Asymptomatic Denies abdominal pain Changes from previous H/P or p: Changes Objective Vitals Vital Signs Date Time Temp Pulse Resp B/P (MAP) Pulse Ox O2 Delivery O2 Flow Rate FiO2 02/07/25 09:00 97.8 79 19 136/81 (99) 92 97.8 02/06/25 21:14 Room Air* 0 21 Intake/Output Intake and Output 02/07/25 07:00 Intake Total 1300 ml Balance 1300 ml Intake Oral 0 ml IV Total 1300 ml # Voids 1 # Bowel Movements 1 General Appearance: Alert, Oriented X3, Cooperative, No acute distress Lungs: Clear to auscultation Cardiovascular: Regular rate, Normal S1, Normal S2 Abdomen: Normal bowel sounds, Other (Distended and generalized tenderness) Extremities: Other (1+ edema bilaterally in the lower extremities) Medications Current Medications Medications Dose Ordered Sig/Tanya Route Start Time Stop Time Status Last Admin Dose Admin Metronidazole 100 ml @ 100 mls/hr Q8HR IV 02/06/25 06:00 02/07/25 05:12 100 MLS/HR Carvedilol 6.25 mg Q12HR PO 02/06/25 10:00 02/06/25 22:25 6.25 MG Rifaximin 550 mg BID PO 02/06/25 10:00 02/06/25 22:24 550 MG Pantoprazole Sodium 40 mg DAILY IV 02/06/25 10:00 02/06/25 10:01 40 MG Diagnostic Test (Pha) 1 strip Q6HR 02/06/25 00:00 02/07/25 05:13 1 STRIP Insulin Human Regular Q6HR SC 02/06/25 00:00 02/07/25 05:35 3 UNITS Dextrose 50 ml UD PRN IV 02/05/25 22:15 Acetaminophen/ Hydrocodone Bitart 1 tab Q4HP PRN PO 02/05/25 22:15 02/06/25 03:58 1 TAB Ondansetron HCl 4 mg Q4HP PRN IV 02/05/25 22:15 Acetaminophen 650 mg Q6HP PRN PO 02/05/25 22:15 Docusate Sodium 100 mg BID PO 02/06/25 10:00 02/06/25 22:24 100 MG Lactulose 30 ml Q6HR PO 02/06/25 18:00 02/07/25 05:13 30 ML Ceftriaxone Sodium/Dextrose 50 ml @ 50 mls/hr DAILY@0900 IV 02/07/25 09:00 Laboratory Results Laboratory Tests 02/07/25 07:15 Chemistry Test 02/07/25 07:15 Albumin 3.5 g/dL (3.2-4.8) Calcium Level 7.4 mg/dL (8.7-10.4) L Magnesium Level 1.8 mg/dL (1.6-2.6) Total Protein 5.5 g/dL (5.7-8.2) L Coagulation Test 02/07/25 07:15 Prothrombin Time 14.4 sec (9.3-11.8) H Prothrombin Time INR 1.41 (0.9-1.15) H Activated Partial Thromboplast Time 43.2 SEC (24.5-34.5) H Lipid panel Test 02/07/25 07:15 Lipase 65 U/L (12-53) H LFT Test 02/07/25 07:15 Alanine Aminotransferase (ALT) 113 U/L (7-40) H Alkaline Phosphatase 70 U/L (46-116) Aspartate Amino Transferase (AST) 52 U/L (13-40) H Total Bilirubin 2.4 mg/dL (0.2-1.0) H Urinalysis Test 02/07/25 01:30 Urine Color Yellow (Yellow) Urine Clarity Clear (Clear) Urine pH 5.0 (5.0-9.0) Urine Specific [place] 1.021 (1.001-1.035) Urine Protein 1+ (Negative) H Urine Ketones Trace (Negative) Urine Blood 2+ /uL (Negative) H Urine Nitrite Negative (Negative) Urine Bilirubin Negative (Negative) Urine Urobilinogen Normal mg/dL (Negative) Urine Leukocyte Esterase Negative /uL (Negative) Urine RBC 1 /hpf (0 - 3) Urine Microscopic WBC 3 /HPF (0-3) Urine Squamous Epithelial Cells Few /hpf (<5) Urine Bacteria None seen /hpf (None Seen) Urine Hyaline Casts Few /lpf (0 - 2) Urine Mucus Few (None Seen) Urine Yeast (Budding) Occasional /hpf (None Urine Creatinine 102.35 mg/dL (30.0-125.0) Urine Protein/Creatinine Ratio 0.61 Urine Sodium 15 mmol/L (40-220) L Urine Glucose 2+ mg/dL (Normal) H Urine Total Protein 62.1 mg/dL (1-14) H Microbiology Microbiology Date/Time Source Procedure Growth Status 02/05/25 20:41 Blood Blood Culture - Preliminary NO GROWTH AFTER 24 HOURS OF INCUBATION. Resulted Assessment/Plan Assessment/Plan Abdominal pain Rule out bowel obstructionsurgical Intractable nausea and vomiting Constipation Hepatic encephalopathy Liver cirrhosis Possible hepatorenal syndrome Acute kidney injury/chronic kidney disease Thrombocytopenia Leukocytosis Type 2 diabetes Hypertension Mixed hyperlipidemia Ascites Lactic acidosis Hyperkalemia Hyponatremia Moderate protein malnutrition Plan Keep NPO Surgical consult Continue lactulose Continue rifaximin GI consult Nephrology consult Paracentesis was attempted, not enough ascites fluids for the procedure to be done Hepatorenal syndrome? : Give albumin IV IV ceftriaxone and Flagyl empirically Full code Advance directives discussed for 20 minute 02/07/2025: Hyponatremia Hyperkalemia Acute kidney injury: Worsening, nephrology on board Metabolic acidosis Chronic kidney disease Liver cirrhosis Hepatic encephalopathy: Improved continue lactulose Abdominal distention and pain: Surgical consult pending Plan discussed with: Patient My Orders Orders - JOVON LOPEZ MD Procedure Category Date Status Time Abdomen Limited US 02/06/25 Resulted 13:52 * Surgical Consult CONS 02/06/25 Transmitted Npo (Nothing By DIET 02/06/25 Transmitted Mouth) Diet Dinner Date of Service: February 07, 2025 Billing Provider: JOVON LOPEZ MD Common Visit Codes: [id number] INP/OBS CARE(HIGH) JOVON LOPEZ MD February 07, 2025 10:45
[2025-02-07] MEDS: cefTRIAXone 2GM/50ML D5W 50 ML IV SCH (10:50)
--- NOTE | 2025-02-07 11:10 | DVHINCON2 ---
Consultation - Surgical Date Seen: February 07, 2025 Referring Physician Referring Physician mami Reason for Consultation Abdominal pain History of Present Illness History of Present Illness 69-year-old male with past medical history of diabetes mellitus, dyslipidemia, hypertension, WI and CHF presented to ER with abdominal pain Patient complains of diffuse abdominal pain for four days, pain is constant per patient. No nausea or vomiting. Patient admits to having dark stool. Last bowel movement on Wednesday Patient has history of heavy alcohol use in the past, quit 16 years ago. Denies history of hepatitis Patient this morning states he is feeling better no abdominal pain currently Past Medical/Surgical History Past Medical/Surgical History diabetes mellitus, dyslipidemia, hypertension, WI and CHF Family and Social History Family and Social History Nonsmoker nondrinker Allergies and medications Allergies: Coded Allergies: No Known Drug Allergy (Verified Allergy, Unknown, 05/04/19) Home Meds Active Scripts Ciprofloxacin Hcl (Cipro) 500 Mg Tab, 1 TAB PO BID for 7 Days, #14 TAB Prov:RICHARD PIERRE MD 02/04/25 Metronidazole (Flagyl) 500 Mg Tab, 1 TAB PO TID for 7 Days, #21 TAB Prov:RICHARD PIERRE MD 02/04/25 Dicyclomine Hcl (BENTYL CAPSULE) 10 Mg Cp, 2 CAP PO Q6HP PRN, #60 CAP 11 Refills Prov:RICHARD PIERRE MD 02/04/25 Tramadol Hcl (Tramadol Hcl) 50 Mg Tab, 50 MG PO Q6HP PRN, #20 TAB Prov:RICHARD PIERRE MD 02/04/25 Pantoprazole Sodium Sesquihydr (Protonix) 40 Mg Tab, 40 MG PO DAILY, #30 TAB Prov:GUILLE MORALES PAC 12/22/24 Cephalexin (KEFLEX CAPSULE) 250 Mg Cp, 500 MG PO BID for 5 Days, #20 CAP Prov:EMERALD ALCANTAR MD 07/26/24 Lactulose (Constulose) 10 Gm/15 Ml Candis, 30 ML PO Q6H for 30 Days, #3600 ML Prov:EMEARLD ALCANTAR MD 07/26/24 Spironolactone (Aldactone) 25 Mg Tab, 100 MG PO DAILY for 60 Days, #240 TAB Prov:MARK ELIAS 07/21/24 Rifaximin (Xifaxan) 550 Mg Tab, 550 MG PO BID for 30 Days, #60 TAB Prov:NARINDERCARMELASANAZ RESIDENT 03/06/24 Reported Medications Insulin Lispro (Humalog Kwikpen) 100 Unit/Ml Inj, 100 UNIT SC, INJ 07/20/24 Furosemide (Furosemide) 40 Mg Tab, 1 TAB PO DAILY, #30 TAB 5 Refills 07/20/24 Insulin Glargine (Lantus Solostar) 100 Unit/Ml Inj, 35 UNIT SC BID 03/06/24 Atorvastatin Calcium (Lipitor) 40 Mg Tab, 1 TAB PO DAILY 03/06/24 Dapagliflozin Propanediol (Farxiga) 10 Mg Tab, 10 MG PO DAILY, TAB 03/05/24 Amlodipine Besylate (Amlodipine Besylate) 10 Mg Tab, 1 TAB PO DAILY 03/05/24 Lisinopril (Lisinopril) 20 Mg Tab, 1 TAB PO DAILY 03/05/24 Carvedilol (Carvedilol) 6.25 Mg Tab, 1 TAB PO BID 03/05/24 Glipizide (Glipizide Er) 10 Mg Tab, 10 MG PO BID, TAB 01/16/19 Review of systems Review of Systems: HEENT:Normal, CVS:Normal, RESPIRATORY:Normal, GI:Abnormal, :Normal, NEURO:Normal Examination Vital signs Vital Signs Date Time Temp Pulse Resp B/P (MAP) Pulse Ox O2 Delivery O2 Flow Rate FiO2 02/07/25 09:00 97.8 79 19 136/81 (99) 92 97.8 02/06/25 21:14 Room Air* 0 21 Medications Current Medications Medications (Trade) Dose Ordered Sig/Tanya Route PRN Reason Start Time Stop Time Status Last Admin Lactulose 30 ml Q6HR PO 02/06/25 18:00 02/07/25 05:13 Zirconium Oxide (Lokelma) 10 gm TID PO 02/06/25 14:00 02/06/25 15:10 DC 02/06/25 13:32 Ceftriaxone Sodium/Dextrose 50 ml @ 50 mls/hr DAILY@0900 IV 02/07/25 09:00 02/07/25 10:50 Albumin Human 100 ml @ 100 mls/hr Q8H IV 02/06/25 14:00 02/07/25 06:59 DC 02/07/25 05:12 Laboratory Labs Test 02/07/25 07:15 02/07/25 05:29 02/07/25 01:30 02/06/25 10:05 Range/Units White Blood Count 17.5 H 4.4-10.8 10^3/uL Red Blood Count 3.71 L 4.5-5.90 10^6/uL Hemoglobin 12.1 #L 13.5-17.5 g/dL Hematocrit 34.5 #L 41.0-53.0 % Mean Corpuscular Volume 92.9 80.0-100.0 fL Mean Corpuscular Hemoglobin 32.6 H 28.0-32.0 pg Mean Corpuscular Hemoglobin Concent 35.0 32.0-36.0 g/dL Red Cell Distribution Width 18.9 H 11.8-14.3 % Platelet Count 115 L 140-450 10^3/uL Mean Platelet Volume 10.1 6.9-10.8 fL Neutrophils (%) (Auto) 86.0 H 37.0-80.0 % Lymphocytes (%) (Auto) 6.1 L 10.0-50.0 % Monocytes (%) (Auto) 7.7 0.0-12.0 % Eosinophils (%) (Auto) 0.0 0.0-7.0 % Basophils (%) (Auto) 0.2 0.0-2.0 % Neutrophils # (Auto) 15.1 H 1.6-8.6 10 ^3/uL Lymphocytes # (Auto) 1.1 0.4-5.4 10 ^3/uL Monocytes # (Auto) 1.4 H 0-1.3 10 ^3/uL Eosinophils # (Auto) 0 0-0.8 10 ^3/uL Basophils # (Auto) 0 0-0.2 10 ^3/uL Nucleated Red Blood Cells 0.1 % Prothrombin Time 14.4 H 9.3-11.8 sec Prothrombin Time INR 1.41 H 0.9-1.15 Activated Partial Thromboplast Time 43.2 H 24.5-34.5 SEC Sodium Level 132 L 136-145 mmol/L Potassium Level 5.5 H 3.5-5.1 mmol/L Chloride Level 100 98-107 mmol/L Carbon Dioxide Level 17 L 20-31 mmol/L Anion Gap 15 5-15 Blood Urea Nitrogen 84 #*H 9-23 mg/dL Creatinine 4.92 H 0.700-1.30 mg/dL Glomerular Filtration Rate Calc 12 >90 mL/min BUN/Creatinine Ratio 17.1 10.0-20.0 Serum Glucose 175 H 74-106 mg/dL Calcium Level 7.4 L 8.7-10.4 mg/dL Magnesium Level 1.8 1.6-2.6 mg/dL Total Bilirubin 2.4 H 0.2-1.0 mg/dL Aspartate Amino Transferase (AST) 52 H 13-40 U/L Alanine Aminotransferase (ALT) 113 H 7-40 U/L Alkaline Phosphatase 70 46-116 U/L Ammonia 84 H 11-32 umol/L Total Protein 5.5 L 5.7-8.2 g/dL Albumin 3.5 3.2-4.8 g/dL Lipase 65 H 12-53 U/L POC Glucose 168 H 70-106 mg/dl Urine Color Yellow Yellow Urine Clarity Clear Clear Urine pH 5.0 5.0-9.0 Urine Specific [place] 1.021 1.001-1.035 Urine Protein 1+ H Negative Urine Ketones Trace Negative Urine Blood 2+ H Negative /uL Urine Nitrite Negative Negative Urine Bilirubin Negative Negative Urine Urobilinogen Normal Negative mg/dL Urine Leukocyte Esterase Negative Negative /uL Urine RBC 1 0 - 3 /hpf Urine Microscopic WBC 3 0-3 /HPF Urine Squamous Epithelial Cells Few <5 /hpf Urine Bacteria None seen None Seen /hpf Urine Hyaline Casts Few 0 - 2 /lpf Urine Mucus Few None Seen Urine Yeast (Budding) Occasional None Seen /hpf Urine Creatinine 102.35 30.0-125.0 mg/dL Urine Protein/Creatinine Ratio 0.61 Urine Sodium 15 L 40-220 mmol/L Urine Glucose 2+ H Normal mg/dL Urine Total Protein 62.1 H 1-14 mg/dL Blood Gas Specimen Type Arterial Blood Gas Sample Site Right radial Blood Gas Patient Temperature 37.0 Arterial Blood Date Drawn Arterial Blood pH 7.248 *L 7.350-7.450 Arterial Blood Partial Pressure CO2 21.5 L 35.0-48.0 mmHg Arterial Blood Partial Pressure O2 81.5 L 83.0-108.0 mmHg Arterial Blood HCO3 9.2 L 21.0-28.0 mmol/L Arterial Blood Oxygen Saturation 94.2 94.0-98.0 % Arterial Blood Base Excess -15.8 L -2.0-3.0 mmol/L Arterial Blood Oxyhemoglobin 92.9 L 94.0-98.0 % Arterial Blood Carboxyhemoglobin 0.6 0.5-1.5 % Arterial Blood Methemoglobin 0.8 0.0-1.5 % Charan Test Modified Blood Gas Total Hemoglobin 15.20 13.5-17.5 g/dL Blood Gas Modality Room air Blood Gas Spontaneous Rate 28 FiO2 % 21.0 Specimen Drawn By Oniel richard Blood Gas Critical Value Read Back Yes Blood Gas Notified Whom aurea Duran Blood Gas Notified Time [id number] Blood Gas Notified By Oniel richard Test 02/06/25 09:50 02/06/25 04:42 02/06/25 03:00 02/05/25 16:22 Range/Units Lactic Acid Level 5.4 *H 0.4-2.0 mmol/L Random Vancomycin Level 16.3 H 5-10 ug/mL Troponin I High Sensitivity 54 </=54 ng/L B-Type Natriuretic Peptide 162.33 0-100 pg/mL Microbiology Date/Time Source Procedure Growth Status 02/05/25 20:41 Blood Blood Culture - Preliminary NO GROWTH AFTER 24 HOURS OF INCUBATION. Resulted INDICATION: abd. pain distention TECHNIQUE: Multiple real-time sonographic images of the abdomen were obtained. COMPARISON: US ABDOMEN COMPLETE SONOGRAM on DOS: 07/20/24 FINDINGS: Limited study. Liver is small measuring 11 cm with irregular nodular contour consistent with cirrhosis. No definite focal lesion is identified in the visualized liver. No evidence of intrahepatic biliary ductal dilatation. Common bile duct could not be visualized. Gallbladder is not visualized. Pancreas is not visualized. Spleen is mildly enlarged measuring up to 16.2 cm. Both kidneys appear within normal limits with no hydronephrosis. Small to moderate amount of ascites is noted in the RUQ. IMPRESSION: Cirrhosis. Small to moderate amount of ascites noted in RUQ. Date: 02/06/2025 12:28 PM Examination: XY KUB ABDOMEN SINGLE VIEW History: Hyperactive bowel sounds Comparison: None TECHNIQUE: Frontal views of the abdomen was obtained. FINDINGS: Diffusely dilated loops of small bowel measuring up to 5 cm. IMPRESSION: Diffusely dilated loops of small bowel measuring up to 5 cm. Findings could represent small-bowel obstruction versus ileus. Examination: GENERAL:Normal, HEENT:Normal, NECK:Normal, LUNGS:Normal, CVS:Normal, ABDOMEN:Normal, MSK:Normal, SKIN:Normal, NEURO:Normal, :Normal Problem List/Assessment/Plan Problems: (1) Enteritis Assessment and Plan 69-year-old male admitted with 2 day history of abdominal pain seems to be r esolving. Cat scan was negative. Ultrasound demonstrates some ascites. Advance diet as tolerated Recommend GI evaluation Plan discussed with Plan discussed with: Patient Visit Coding Surgery Date of Service if different f: February 07, 2025 Billing Provider: CHANCE BUSTOS Jr., MD Surgery Visit Codes: [id number] - INP CONSULT <80 MIN CHANCE BUSTOS Jr., MD February 07, 2025 11:10
--- NOTE | 2025-02-07 14:24 | DVHPN2 ---
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 Patient reports that on 02/02 he was helping his son, and was working outside in the sun when he experienced dizziness but did not experience any fall, syncope, confusion. Patient since worsening abdominal distention, and diffuse lower abdominal pain. Reports last bowel movement was on 02/03, says that his abdomen was bloated and therefore he induced vomiting himself denies nausea or vomiting. Denies disorientation and confusion during the past week. Reports compliance to lactulose 30 daily. Patient is A&O x4, alert and oriented to name, place, time and situation. Last drink was 1996. On arrival to the ER, patient was vitally stable, WBC increased from 16-19, platelets 123 which is chronic. BMP showed sodium 146, now 132, potassium elevated at 5.8, was 4.5 on 02/04. BUN/creatinine went 26/1.7 GFR 42 on 02/04/2025, now 60/4.3, GFR 14. Patient had been anion gap metabolic acidosis. Lactic acid elevated at 2.3. Ammonia level 180, was 78 12/28. Patient was recently hospitalized in this facility on 07/13/2024 and was diagnosed with hepatic encephalopathy and diastolic heart failure exacerbation. He was A&O x4. Ammonia was 93. Past medical history: recurrent admissions due to hepatic encephalopathy secondary to alcoholic liver cirrhosis, hyperammonemia, history of 2 MN 30 years back, CKD 3B, diabetes mellitus type 2, heart failure with preserved ejection fraction at 60%, colonoscopy status post polypectomy in 2019, paroxysmal atrial fibrillation, splenomegaly, UTI, pneumonia status post intubation in 2018, hypertension and hyperlipidemia Past Surgical History: pneumonia status post intubation in 2018 Family History: None Social history: Lives with family, last drink 1986, denies smoking or illicit drug use PCP Dr. Turner Home medications: Lactulose t.i.d., spironolactone 100 mg, Coreg 6.2 5 mg b.i.d. , glipizide, atorvastatin patient recently stopped taking Sildenafil 100 mg, lisinopril 20 mg, Lasix 40 mg, amlodipine 10 mg, Finerenone in 20 mg, fexofenadine 02/06-Patient seen and examined at the bedside. No acute distress. Abdomen has shifting dullness, distended, hyperactive bowel sounds. 02/07-patient seen and examined at the bedside. Lopez catheter placement is still pending. No I&Os noted. Strict I&Os and Lopez catheter placement ordered again. Patient had a bowel movement earlier today. Bicarbonate increased from 13-17. 1 L D5 with 3 ampules of bicarb ordered. BUN/ creatinine increased to 84/4.9 Objective vital signs Vital Sign Date Time Temp Pulse Resp B/P (MAP) Pulse Ox O2 Delivery O2 Flow Rate FiO2 02/07/25 13:00 97.7 73 16 100/40 (60) 93 97.7 02/06/25 21:14 Room Air* 0 21 Total Intake and Output 02/06/25 02/06/25 02/07/25 15:00 23:00 07:00 Intake Total 300 ml 800 ml 200 ml Balance 300 ml 800 ml 200 ml medications Current Medications Medications Dose Ordered Sig/Tanya Route Start Time Stop Time Status Last Admin Dose Admin Metronidazole 100 ml @ 100 mls/hr Q8HR IV 02/06/25 06:00 02/07/25 05:12 100 MLS/HR Carvedilol 6.25 mg Q12HR PO 02/06/25 10:00 02/06/25 22:25 6.25 MG Rifaximin 550 mg BID PO 02/06/25 10:00 02/06/25 22:24 550 MG Pantoprazole Sodium 40 mg DAILY IV 02/06/25 10:00 02/07/25 10:50 40 MG Diagnostic Test (Pha) 1 strip Q6HR 02/06/25 00:00 02/07/25 12:04 1 STRIP Insulin Human Regular Q6HR SC 02/06/25 00:00 02/07/25 12:04 2 UNITS Dextrose 50 ml UD PRN IV 02/05/25 22:15 Acetaminophen/ Hydrocodone Bitart 1 tab Q4HP PRN PO 02/05/25 22:15 02/06/25 03:58 1 TAB Ondansetron HCl 4 mg Q4HP PRN IV 02/05/25 22:15 Acetaminophen 650 mg Q6HP PRN PO 02/05/25 22:15 Docusate Sodium 100 mg BID PO 02/06/25 10:00 02/06/25 22:24 100 MG Lactulose 30 ml Q6HR PO 02/06/25 18:00 02/07/25 05:13 30 ML Ceftriaxone Sodium/Dextrose 50 ml @ 50 mls/hr DAILY@0900 IV 02/07/25 09:00 02/07/25 10:50 50 MLS/HR Examination Patient lying in bed, in no acute distress General: Well-built, afebrile, scleral icterus, mucosae are moist Cardiovascular: Regular S1 and S2. No murmurs, gallops or rubs. No JVD elevation. trace bilateral pedal edema Respiratory: Normal B/L air entry on room air. Clear lung sounds on auscultation Abdomen: Soft, suprapubic tenderness, distended, hyperactive bowel sounds, no rebound tenderness, no organomegaly, no masses Genitourinary: Deferred MSK/skin: Mobilizes 4 limbs. Skin is dry and warm Neurological: No motor, no sensitive deficits, normal speech. Pupils are isocoric and reactive. Psych/Mental Status: A/Ox3 laboratory and microbiology Laboratory Tests 02/07/25 07:15 Test 02/07/25 07:15 Range/Units Serum Glucose 175 H 74-106 mg/dL Microbiology Date/Time Source Procedure Growth Status 02/05/25 20:41 Blood Blood Culture - Preliminary NO GROWTH AFTER 24 HOURS OF INCUBATION. Resulted Labs and/or images reviewed: Labs reviewed by me, Image(s) reviewed by me Problem List/Assessment/Plan Problem List/Assessment/Plan Acute kidney injury, likely prerenal, rule out HRS versus ATN Rule out urinary obstruction Sepsis due to SBO versus ileus Decompensated liver cirrhosis History of hepatic encephalopathy Hyperkalemia Heart failure with preserved ejection fraction Diabetes mellitus type 2 History of paroxysmal AFib History of pneumonia status and intubation History of MN Hypertension Chronic thrombocytopenia Morbid obesity FENA 0.5 prerenal Urine protein excretion 0.6 g per day Creatinine clearance 10 Plan: Lopez catheter placement is still pending. No I&Os noted. Strict I&Os and Lopez catheter placement ordered again 02/07- 1 L D5 with 3 ampules of bicarb ordered /- 1 L D5 with 3 amps bicarb and 3 bags of albumin administered Follow up with lactic acid Surgical consultation appreciated IR Consulted for Paracentesis, no ascites, preliminary blood culture negative Continue IV ceftriaxone 2 g daily Follow up with bladder scan to rule out obstruction Follow up with urine sodium, urine protein, urine creatinine Follow up with chest x-ray Hyperkalemia protocol initiated Plan discussed with patient in which all questions have been answered Case discussed with Dr. Goodson Addendum Patient seen and examined, plan discussed with resident. Agree with above, we will follow closely Plan discussed with: Patient My Orders My Orders Orders - TYRELL TAVAREZ Procedure Category Date Status Time Chest Xray 1 View XY 02/06/25 Resulted 15:08 Communication Order ORDERS 02/06/25 Transmitted 15:08 TYRELL TAVAREZ February 07, 2025 14:24 MELODY GOODSON MD February 07, 2025 15:51
[2025-02-07] MEDS: ALBUTEROL SULF 2.5 MG/0.5ML(0.5%) NEB SOLN NEB ONE (15:18)
[2025-02-07] MEDS: DEXTROSE (50%) 50ML SYRG IV ONE (15:54)
[2025-02-07] MEDS: InsuLIN REG 1unit/0.01ml Soln (100units/ml) IV ONE (15:55)
[2025-02-07 15:56] LABS: Lactic Acid w/Reflex 2.3 mmol/L (0.4-2.0)
--- NOTE | 2025-02-07 23:22 | DVHPN2 ---
Progress Note - Dictate Date Seen: February 07, 2025 Medical Necessity Reason Pt with a Central, PICC or Fol: No Subjective 69 y o male with recurrent admissions due to hepatic encephalopathy secondary to alcoholic liver cirrhosis, hyperammonemia, history of 2 NH 30 years back, CKD 3B, diabetes mellitus type 2, heart failure with preserved ejection fraction at 60%, colonoscopy status post polypectomy in 2019, paroxysmal atrial fibrillation, splenomegaly, UTI, pneumonia status post intubation in 2018, hypertension and hyperlipidemia 02/07/25 : patient has moderate abdominal distention but at this time denies any abdominal discomfort, there was no nausea vomiting or GI bleeding;Abdominal ultrasound did not show enough ascites for paracentesis KUB shows moderate amount of small bowel distention vital signs Vital Sign Date Time Temp Pulse Resp B/P (MAP) Pulse Ox O2 Delivery O2 Flow Rate FiO2 02/07/25 21:58 79 113/56 02/07/25 21:00 98.5 18 92 98.5 02/07/25 08:00 Room Air* 0 21 Total Intake and Output 02/06/25 02/06/25 02/07/25 15:00 23:00 07:00 Intake Total 300 ml 800 ml 200 ml Balance 300 ml 800 ml 200 ml medications Current Medications Medications Dose Ordered Sig/Tanya Route Start Time Stop Time Status Last Admin Dose Admin Metronidazole 100 ml @ 100 mls/hr Q8HR IV 02/06/25 06:00 02/07/25 21:51 100 MLS/HR Carvedilol 6.25 mg Q12HR PO 02/06/25 10:00 02/06/25 22:25 6.25 MG Rifaximin 550 mg BID PO 02/06/25 10:00 02/06/25 22:24 550 MG Pantoprazole Sodium 40 mg DAILY IV 02/06/25 10:00 02/07/25 10:50 40 MG Diagnostic Test (Pha) 1 strip Q6HR 02/06/25 00:00 02/07/25 17:56 1 STRIP Insulin Human Regular Q6HR SC 02/06/25 00:00 02/07/25 17:56 3 UNITS Dextrose 50 ml UD PRN IV 02/05/25 22:15 Acetaminophen/ Hydrocodone Bitart 1 tab Q4HP PRN PO 02/05/25 22:15 02/07/25 21:54 1 TAB Ondansetron HCl 4 mg Q4HP PRN IV 02/05/25 22:15 Acetaminophen 650 mg Q6HP PRN PO 02/05/25 22:15 Docusate Sodium 100 mg BID PO 02/06/25 10:00 02/06/25 22:24 100 MG Lactulose 30 ml Q6HR PO 02/06/25 18:00 02/07/25 18:07 30 ML Ceftriaxone Sodium/Dextrose 50 ml @ 50 mls/hr DAILY@0900 IV 02/07/25 09:00 02/07/25 10:50 50 MLS/HR objective General: Well-built, obese, slight scleral icterus, mucosae are moist Cardiovascular: Regular S1 and S2 rrr trace bilateral pedal edema Respiratory: Normal B/L air entry on room air. Clear lung sounds on auscultation Abdomen: Soft, Distended, hypoactive bowel sounds, no rebound tenderness, no organomegaly, no masses Neurological: No motor, no sensitive deficits, normal speech. Pupils are isocoric and reactive. Psych/Mental Status: A/Ox3 laboratory and microbiology Laboratory Tests 02/07/25 07:15 Test 02/07/25 07:15 Range/Units Serum Glucose 175 H 74-106 mg/dL USG FINDINGS: IMPRESSION: There is trace ascites and too little for paracentesis. Abd X RAY IMPRESSION: Diffusely dilated loops of small bowel measuring up to 5 cm. Findings could represent small-bowel obstruction versus ileus. Problems(with codes): (1) Lactic acidosis (2) Abdominal pain (3) Acute kidney injury (4) GERD (gastroesophageal reflux disease) (5) Hyperkalemia (6) Hepatic encephalopathy (7) UTI (urinary tract infection) (8) Cirrhosis of liver Prognosis Plan Repeat KUB in a.m. and possible consider small-bowel series with Gastrografin Continue to monitor labs IV fluid hydration and IV antibiotics Nephrology consult for worsening renal function Lactulose 30 mL p.o. q.6 hours and monitor ammonia levels Xifaxan 550 mg p.o. twice a day Currently NPO, consider ice chips Dietary Evaluation Review Comments: 1) [facility] + Renal specific 60gm as medically feasible 2) Refer to CDE on DC 3) Continue current plan of care Expected Outcomes/Goals: To meet 75% estimated needs fu 2-3 days Plan discussed with: Patient, Other (Nurse) ZENAIDA PENA MD February 07, 2025 23:22
[2025-02-08] VITALS (11 sets, daily range): BP systolic 113–151; BP diastolic 53–78; PULSE 70–81; RESP 16–19; TEMP 97.4–98.5; O2SAT 93–98
[2025-02-08] MEDS: ALBUTEROL SULF 2.5 MG/0.5ML(0.5%) NEB SOLN NEB ONE (00:54)
[2025-02-08 08:00] LABS: Basophils # (auto) 0 10 ^3/uL (0-0.2); Basophils % (auto) 0.2 % (0.0-2.0); Eosinophils # (auto) 0 10 ^3/uL (0-0.8); Eosinophils % (auto) 0.3 % (0.0-7.0); Hematocrit 34.3 % (41.0-53.0); Hemoglobin 11.9 g/dL (13.5-17.5); Lymphocytes % (auto) 7.1 % (10.0-50.0); Mean Corpuscular Hemoglobin 32.1 pg (28.0-32.0); Mean Corpuscular Hgb Conc. 34.7 g/dL (32.0-36.0); Mean Corpuscular Volume 92.6 fL (80.0-100.0); Monocytes # (auto) 1.2 10 ^3/uL (0-1.3); Monocytes % (auto) 8.7 % (0.0-12.0); Neutrophils # (auto) 11.9 10 ^3/uL (1.6-8.6); Neutrophils % (auto) 83.7 % (37.0-80.0); Nucleated Red Blood Cells % 0.1 %; Platelet Count (auto) 127 10^3/uL (140-450); Red Cell Distribution Width 18.2 % (11.8-14.3); White Blood Cell 14.2 10^3/uL (4.4-10.8)
[2025-02-08 08:20] LABS: Albumin 3.5 g/dL (3.2-4.8); Alkaline Phosphatase 81 U/L (46-116); Anion Gap 12 (5-15); BUN/Creatinine Ratio 24.9 (10.0-20.0); Carbon Dioxide 22 mmol/L (20-31); Chloride 102 mmol/L (98-107); Magnesium 2.5 mg/dL (1.6-2.6); Sodium 136 mmol/L (136-145); Total Protein 5.7 g/dL (5.7-8.2)
[2025-02-08 08:22] LABS: Alanine Aminotransferase 110 U/L (7-40); Aspartate Aminotransferase 64 U/L (13-40); Bilirubin, Total 2.6 mg/dL (0.2-1.0); Blood Urea Nitrogen 76 mg/dL (9-23); Glucose 167 mg/dL (74-106)
[2025-02-08 10:28] LABS: Lactic Acid w/Reflex 2.1 mmol/L (0.4-2.0)
[2025-02-08] MEDS ORDERED: SODIUM CHLORIDE 0.9% 1,000 ML IV SCH (10:45)
[2025-02-08] MEDS: SODIUM BICARB 50mEq/50ml Vial 150 ML in D5W 5% 1,000 ML IV ONE (11:30)
--- NOTE | 2025-02-08 12:17 | DVHPN2 ---
Subjective He is still complaining of abdominal pain GI recommended a small bowel series which he is getting today Changes from previous H/P or p: Changes Objective Vitals Vital Signs Date Time Temp Pulse Resp B/P (MAP) Pulse Ox O2 Delivery O2 Flow Rate FiO2 02/08/25 10:03 70 134/53 02/08/25 09:00 97.9 16 95 97.9 02/08/25 08:19 Room Air* 0 21 Intake/Output Intake and Output 02/08/25 07:00 Intake Total 350 ml Output Total 1700 ml Balance -1350 ml Intake Oral 0 ml IV Total 350 ml Output Urine Total 1700 ml General Appearance: Alert, Oriented X3, Cooperative, No acute distress Lungs: Clear to auscultation Cardiovascular: Regular rate, Normal S1, Normal S2 Abdomen: Normal bowel sounds, Other (Distended and generalized tenderness) Extremities: Other (1+ edema bilaterally in the lower extremities) Medications Current Medications Medications Dose Ordered Sig/Tanya Route Start Time Stop Time Status Last Admin Dose Admin Metronidazole 100 ml @ 100 mls/hr Q8HR IV 02/06/25 06:00 02/08/25 05:24 100 MLS/HR Carvedilol 6.25 mg Q12HR PO 02/06/25 10:00 02/08/25 10:03 6.25 MG Rifaximin 550 mg BID PO 02/06/25 10:00 02/08/25 10:02 550 MG Pantoprazole Sodium 40 mg DAILY IV 02/06/25 10:00 02/08/25 10:02 40 MG Diagnostic Test (Pha) 1 strip Q6HR 02/06/25 00:00 02/08/25 05:32 1 STRIP Insulin Human Regular Q6HR SC 02/06/25 00:00 02/08/25 05:55 2 UNITS Dextrose 50 ml UD PRN IV 02/05/25 22:15 Acetaminophen/ Hydrocodone Bitart 1 tab Q4HP PRN PO 02/05/25 22:15 02/08/25 02:48 1 TAB Ondansetron HCl 4 mg Q4HP PRN IV 02/05/25 22:15 Acetaminophen 650 mg Q6HP PRN PO 02/05/25 22:15 Docusate Sodium 100 mg BID PO 02/06/25 10:00 02/08/25 10:02 100 MG Lactulose 30 ml Q6HR PO 02/06/25 18:00 02/07/25 18:07 30 ML Ceftriaxone Sodium/Dextrose 50 ml @ 50 mls/hr DAILY@0900 IV 02/07/25 09:00 02/08/25 10:02 50 MLS/HR Albuterol 2.5 mg Q6HPRN PRN NEB 02/08/25 00:45 Dextrose/Sodium Chloride 1,000 ml @ 75 mls/hr [id number] IV 02/08/25 12:00 UNV Laboratory Results Laboratory Tests 02/08/25 06:45 Chemistry Test 02/08/25 06:45 Albumin 3.5 g/dL (3.2-4.8) Calcium Level 8.0 mg/dL (8.7-10.4) L Magnesium Level 2.5 mg/dL (1.6-2.6) Total Protein 5.7 g/dL (5.7-8.2) LFT Test 02/08/25 06:45 Alanine Aminotransferase (ALT) 110 U/L (7-40) H Alkaline Phosphatase 81 U/L (46-116) Aspartate Amino Transferase (AST) 64 U/L (13-40) H Total Bilirubin 2.6 mg/dL (0.2-1.0) H Urinalysis Test 02/07/25 01:30 Urine Color Yellow (Yellow) Urine Clarity Clear (Clear) Urine pH 5.0 (5.0-9.0) Urine Specific [place] 1.021 (1.001-1.035) Urine Protein 1+ (Negative) H Urine Ketones Trace (Negative) Urine Blood 2+ /uL (Negative) H Urine Nitrite Negative (Negative) Urine Bilirubin Negative (Negative) Urine Urobilinogen Normal mg/dL (Negative) Urine Leukocyte Esterase Negative /uL (Negative) Urine RBC 1 /hpf (0 - 3) Urine Microscopic WBC 3 /HPF (0-3) Urine Squamous Epithelial Cells Few /hpf (<5) Urine Bacteria None seen /hpf (None Seen) Urine Hyaline Casts Few /lpf (0 - 2) Urine Mucus Few (None Seen) Urine Yeast (Budding) Occasional /hpf (None Urine Creatinine 102.35 mg/dL (30.0-125.0) Urine Protein/Creatinine Ratio 0.61 Urine Sodium 15 mmol/L (40-220) L Urine Glucose 2+ mg/dL (Normal) H Urine Total Protein 62.1 mg/dL (1-14) H Microbiology Microbiology Date/Time Source Procedure Growth Status 02/05/25 20:41 Blood Blood Culture - Preliminary NO GROWTH AFTER 48 HOURS OF INCUBATION. Resulted Assessment/Plan Assessment/Plan Abdominal pain Rule out bowel obstructionsurgical Intractable nausea and vomiting Constipation Hepatic encephalopathy Liver cirrhosis Possible hepatorenal syndrome Acute kidney injury/chronic kidney disease Thrombocytopenia Leukocytosis Type 2 diabetes Hypertension Mixed hyperlipidemia Ascites Lactic acidosis Hyperkalemia Hyponatremia Moderate protein malnutrition Plan Keep NPO Surgical consult Continue lactulose Continue rifaximin GI consult Nephrology consult Paracentesis was attempted, not enough ascites fluids for the procedure to be done Hepatorenal syndrome? : Give albumin IV IV ceftriaxone and Flagyl empirically Full code Advance directives discussed for 20 minute 02/07/2025: Hyponatremia Hyperkalemia Acute kidney injury: Worsening, nephrology on board Metabolic acidosis Chronic kidney disease Liver cirrhosis Hepatic encephalopathy: Improved continue lactulose Abdominal distention and pain: Surgical consult pending 02/08/2025: Small bowel series today to rule out bowel obstruction GI is on board Nephrology is on board Kidney function is improving with a creatinine of 3.0 and carbon dioxide of 22 today Monitor closely Plan discussed with: Patient Date of Service: February 08, 2025 Billing Provider: JOVON LOPEZ MD Common Visit Codes: [id number] INP/OBS CARE(HIGH) JOVON LOPEZ MD February 08, 2025 12:17
[2025-02-08] MEDS: D5W/SOD CHLO 0.9% 1,000 ML IV SCH (14:20)
--- NOTE | 2025-02-08 16:27 | DVH ---
Procedure: XY SMALL BOWEL SERIES-W GASTROGRA Reason for study/Clinical History: small bowel distension r/o sbo Comparison Study: None Technique: Single contrast small bowel series performed. FINDINGS/IMPRESSION: Initial straddle bug view of the abdomen and pelvis appears demonstrates no acute process. Contrast is identified within the colon by 4 hours. This represents a delayed small bowel transit ti me without definite obstruction. Clinical correlation advised.
--- NOTE | 2025-02-08 17:49 | DVHPN2 ---
Progress Note Date Seen: February 08, 2025 Resident Creating Document: TYRELL TAVAREZ RESIDENT Medical Necessity Reason Pt with a Central, PICC or Fol: No Subjective Review of Systems This is a 69-year-old male patient with past medical history of recurrent admissions due to hepatic encephalopathy secondary to alcoholic liver cirrhosis, hyperammonemia, history of 2 MO 30 years back, CKD 3B, diabetes mellitus type 2 for 15 years, heart failure with preserved ejection fraction at 60%, colonoscopy status post polypectomy in 2019, paroxysmal atrial fibrillation, splenomegaly, Patrizia UTI in 02/2024, pneumonia status post intubation in 2018, hypertension and hyperlipidemia who presented to the ER with the chief complaint of dizziness and abdominal pain for the past 4x days. Patient reports that on 02/02 he was helping his son, and was working outside in the sun when he experienced dizziness but did not experience any fall, syncope, confusion. Patient since worsening abdominal distention, and diffuse lower abdominal pain. Reports last bowel movement was on 02/03, says that his abdomen was bloated and therefore he induced vomiting himself denies nausea or vomiting. Denies disorientation and confusion during the past week. Reports compliance to lactulose 30 daily. Patient is A&O x4, alert and oriented to name, place, time and situation. Last drink was 1996. On arrival to the ER, patient was vitally stable, WBC increased from 16-19, platelets 123 which is chronic. BMP showed sodium 146, now 132, potassium elevated at 5.8, was 4.5 on 02/04. BUN/creatinine went 26/1.7 GFR 42 on 02/04/2025, now 60/4.3, GFR 14. Patient had been anion gap metabolic acidosis. Lactic acid elevated at 2.3. Ammonia level 180, was 78 12/28. Patient was recently hospitalized in this facility on 07/13/2024 and was diagnosed with hepatic encephalopathy and diastolic heart failure exacerbation. He was A&O x4. Ammonia was 93. Past medical history: recurrent admissions due to hepatic encephalopathy secondary to alcoholic liver cirrhosis, hyperammonemia, history of 2 MO 30 years back, CKD 3B, diabetes mellitus type 2, heart failure with preserved ejection fraction at 60%, colonoscopy status post polypectomy in 2019, paroxysmal atrial fibrillation, splenomegaly, UTI, pneumonia status post intubation in 2018, hypertension and hyperlipidemia Past Surgical History: pneumonia status post intubation in 2018 Family History: None Social history: Lives with family, last drink 1986, denies smoking or illicit drug use PCP Dr. Turner Home medications: Lactulose t.i.d., spironolactone 100 mg, Coreg 6.2 5 mg b.i.d. , glipizide, atorvastatin patient recently stopped taking Sildenafil 100 mg, lisinopril 20 mg, Lasix 40 mg, amlodipine 10 mg, Finerenone in 20 mg, fexofenadine 02/06-Patient seen and examined at the bedside. No acute distress. Abdomen has shifting dullness, distended, hyperactive bowel sounds. 02/07-patient seen and examined at the bedside. Lopez catheter placement is still pending. No I&Os noted. Strict I&Os and Lopez catheter placement ordered again. Patient had a bowel movement earlier today. Bicarbonate increased from 13-17. 1 L D5 with 3 ampules of bicarb ordered. BUN/ creatinine increased to 84/4.9 02/08 - patient seen and examined at the bedside. Had 2 bowel movements. Urine output 1350cc per day, WBC trending down to 14 serum bicarb increased to 22. Overnight, Patient did not get D5 with bicarb 1 L. Objective vital signs Vital Sign Date Time Temp Pulse Resp B/P (MAP) Pulse Ox O2 Delivery O2 Flow Rate FiO2 02/08/25 17:00 97.4 73 16 133/57 (82) 94 97.4 02/08/25 10:00 Room Air* 0 21 Total Intake and Output 02/07/25 02/07/25 02/08/25 15:00 23:00 07:00 Intake Total 50 ml 100 ml 200 ml Output Total 300 ml 1400 ml Balance 50 ml -200 ml -1200 ml medications Current Medications Medications Dose Ordered Sig/Tanya Route Start Time Stop Time Status Last Admin Dose Admin Metronidazole 100 ml @ 100 mls/hr Q8HR IV 02/06/25 06:00 02/08/25 14:19 100 MLS/HR Carvedilol 6.25 mg Q12HR PO 02/06/25 10:00 02/08/25 10:03 6.25 MG Rifaximin 550 mg BID PO 02/06/25 10:00 02/08/25 10:02 550 MG Pantoprazole Sodium 40 mg DAILY IV 02/06/25 10:00 02/08/25 10:02 40 MG Diagnostic Test (Pha) 1 strip Q6HR 02/06/25 00:00 02/08/25 17:12 1 STRIP Insulin Human Regular Q6HR SC 02/06/25 00:00 02/08/25 17:19 3 UNITS Dextrose 50 ml UD PRN IV 02/05/25 22:15 Ondansetron HCl 4 mg Q4HP PRN IV 02/05/25 22:15 Acetaminophen 650 mg Q6HP PRN PO 02/05/25 22:15 Docusate Sodium 100 mg BID PO 02/06/25 10:00 02/08/25 10:02 100 MG Lactulose 30 ml Q6HR PO 02/06/25 18:00 02/08/25 17:19 30 ML Ceftriaxone Sodium/Dextrose 50 ml @ 50 mls/hr DAILY@0900 IV 02/07/25 09:00 02/08/25 10:02 50 MLS/HR Albuterol 2.5 mg Q6HPRN PRN NEB 02/08/25 00:45 Dextrose/Sodium Chloride 1,000 ml @ 75 mls/hr [id number] IV 02/08/25 12:00 02/08/25 14:20 75 MLS/HR Morphine Sulfate 2 mg Q4HPRN PRN IV 02/08/25 14:45 Examination Patient lying in bed, in no acute distress General: Well-built, afebrile, scleral icterus, mucosae are moist Cardiovascular: Regular S1 and S2. No murmurs, gallops or rubs. No JVD elevation. trace bilateral pedal edema Respiratory: Normal B/L air entry on room air. Clear lung sounds on auscultation Abdomen: Soft, suprapubic tenderness, distended, hyperactive bowel sounds, no rebound tenderness, no organomegaly, no masses Genitourinary: Lopez draining clear urine. MSK/skin: Mobilizes 4 limbs. Skin is dry and warm Neurological: No motor, no sensitive deficits, normal speech. Pupils are isocoric and reactive. Psych/Mental Status: A/Ox3 laboratory and microbiology Laboratory Tests 02/08/25 06:45 Test 02/08/25 06:45 Range/Units Serum Glucose 167 H 74-106 mg/dL Microbiology Date/Time Source Procedure Growth Status 02/05/25 20:41 Blood Blood Culture - Preliminary NO GROWTH AFTER 48 HOURS OF INCUBATION. Resulted Labs and/or images reviewed: Labs reviewed by me, Image(s) reviewed by me Problem List/Assessment/Plan Problem List/Assessment/Plan Acute kidney injury, likely prerenal, rule out HRS versus ATN Rule out urinary obstruction Sepsis due to SBO versus ileus Decompensated liver cirrhosis History of hepatic encephalopathy Hyperkalemia Heart failure with preserved ejection fraction Diabetes mellitus type 2 History of paroxysmal AFib History of pneumonia status and intubation History of MO Hypertension Chronic thrombocytopenia Morbid obesity FENA 0.5 prerenal Urine protein excretion 0.6 g per day Creatinine clearance 10 Small bowel series with Gastrografin shows Contrast is identified within the colon by 4 hours. This represents a delayed small bowel transit time without definite obstruction. Clinical correlation advised. Plan: Continue Lopez placement until Urology clears. Consider Urology evaluation. Serum bicarb trended up to 22. 1L D5W with NS ordered at 75 cc Bladder scan 02/07 showed 150 cc 02/07- patient did not receive 1 L D5 with 3 ampules of bicarb ordered 02/06- 1 L D5 with 3 amps bicarb and 3 bags of albumin administered Surgical consultation appreciated IR Consulted for Paracentesis, no ascites, preliminary blood culture negative Continue IV ceftriaxone 2 g daily Plan discussed with patient in which all questions have been answered Case discussed with Dr. Goodson Addendum Patient seen and examined, plan discussed with resident. Agree with above, we will follow closely Plan discussed with: Patient Dietary Evaluation Review Comments: 1) Advance to [facility] 60gm + Renal specific 60gm as medically feasible 2) Refer to CDE on DC 3) Continue current plan of care Expected Outcomes/Goals: To meet 75% estimated needs fu 2-3 days TYRELL TAVAREZ February 08, 2025 17:49 MELODY GOODSON MD February 08, 2025 18:49
[2025-02-08] MEDS: MORPHINE SULFATE INJ 2 MG/ml SYRG IV PRN (18:04)
[2025-02-08] MEDS: ONDANSETRON HCL 4 MG/2 ML VIAL IV PRN (20:41)
[2025-02-09] VITALS (12 sets, daily range): BP systolic 117–148; BP diastolic 40–83; PULSE 61–76; RESP 17–20; TEMP 96.6–98.7; O2SAT 93–97
[2025-02-09 07:25] LABS: Basophils # (auto) 0 10 ^3/uL (0-0.2); Basophils % (auto) 0.1 % (0.0-2.0); Eosinophils # (auto) 0.1 10 ^3/uL (0-0.8); Eosinophils % (auto) 0.7 % (0.0-7.0); Hematocrit 35.7 % (41.0-53.0); Hemoglobin 12.2 g/dL (13.5-17.5); Mean Corpuscular Hemoglobin 32.2 pg (28.0-32.0); Mean Corpuscular Volume 94.7 fL (80.0-100.0); Monocytes # (auto) 1.3 10 ^3/uL (0-1.3); Monocytes % (auto) 10.4 % (0.0-12.0); Neutrophils # (auto) 10.4 10 ^3/uL (1.6-8.6); Neutrophils % (auto) 80.8 % (37.0-80.0); Nucleated Red Blood Cells % 0.4 %; Platelet Count (auto) 133 10^3/uL (140-450); Red Blood Cells 3.77 10^6/uL (4.5-5.90); Red Cell Distribution Width 19.2 % (11.8-14.3); White Blood Cell 12.9 10^3/uL (4.4-10.8)
[2025-02-09 07:30] LABS: Anion Gap 12 (5-15); Carbon Dioxide 23 mmol/L (20-31); Potassium 4.9 mmol/L (3.5-5.1); Sodium 142 mmol/L (136-145)
[2025-02-09 07:33] LABS: Chloride 107 mmol/L (98-107)
[2025-02-09 07:36] LABS: BUN/Creatinine Ratio 27.7 (10.0-20.0)
[2025-02-09 07:44] LABS: Blood Urea Nitrogen 64 mg/dL (9-23); Glucose 187 mg/dL (74-106)
[2025-02-09 09:50] LABS: Lactic Acid w/Reflex 2.1 mmol/L (0.4-2.0)
--- NOTE | 2025-02-09 11:05 | DVHPN2 ---
Progress Note Date Seen: February 09, 2025 Resident Creating Document: TYRELL TAVAREZ RESIDENT Medical Necessity Reason Pt with a Central, PICC or Fol: No Subjective Review of Systems This is a 69-year-old male patient with past medical history of recurrent admissions due to hepatic encephalopathy secondary to alcoholic liver cirrhosis, hyperammonemia, history of 2 [place] 30 years back, CKD 3B, diabetes mellitus type 2 for 15 years, heart failure with preserved ejection fraction at 60%, colonoscopy status post polypectomy in 2019, paroxysmal atrial fibrillation, splenomegaly, Patrizia UTI in 02/2024, pneumonia status post intubation in 2018, hypertension and hyperlipidemia who presented to the ER with the chief complaint of dizziness and abdominal pain for the past 4x days. Patient reports that on 02/02 he was helping his son, and was working outside in the sun when he experienced dizziness but did not experience any fall, syncope, confusion. Patient since worsening abdominal distention, and diffuse lower abdominal pain. Reports last bowel movement was on 02/03, says that his abdomen was bloated and therefore he induced vomiting himself denies nausea or vomiting. Denies disorientation and confusion during the past week. Reports compliance to lactulose 30 daily. Patient is A&O x4, alert and oriented to name, place, time and situation. Last drink was 1996. On arrival to the ER, patient was vitally stable, WBC increased from 16-19, platelets 123 which is chronic. BMP showed sodium 146, now 132, potassium elevated at 5.8, was 4.5 on 02/04. BUN/creatinine went 26/1.7 GFR 42 on 02/04/2025, now 60/4.3, GFR 14. Patient had been anion gap metabolic acidosis. Lactic acid elevated at 2.3. Ammonia level 180, was 78 12/28. Patient was recently hospitalized in this facility on 07/13/2024 and was diagnosed with hepatic encephalopathy and diastolic heart failure exacerbation. He was A&O x4. Ammonia was 93. Past medical history: recurrent admissions due to hepatic encephalopathy secondary to alcoholic liver cirrhosis, hyperammonemia, history of 2 UT 30 years back, CKD 3B, diabetes mellitus type 2, heart failure with preserved ejection fraction at 60%, colonoscopy status post polypectomy in 2019, paroxysmal atrial fibrillation, splenomegaly, UTI, pneumonia status post intubation in 2018, hypertension and hyperlipidemia Past Surgical History: pneumonia status post intubation in 2018 Family History: None Social history: Lives with family, last drink 1986, denies smoking or illicit drug use PCP Dr. Turner Home medications: Lactulose t.i.d., spironolactone 100 mg, Coreg 6.2 5 mg b.i.d. , glipizide, atorvastatin patient recently stopped taking Sildenafil 100 mg, lisinopril 20 mg, Lasix 40 mg, amlodipine 10 mg, Finerenone in 20 mg, fexofenadine 02/06-Patient seen and examined at the bedside. No acute distress. Abdomen has shifting dullness, distended, hyperactive bowel sounds. 02/07-patient seen and examined at the bedside. Lopez catheter placement is still pending. No I&Os noted. Strict I&Os and Lopez catheter placement ordered again. Patient had a bowel movement earlier today. Bicarbonate increased from 13-17. 1 L D5 with 3 ampules of bicarb ordered. BUN/ creatinine increased to 84/4.9 02/08 - patient seen and examined at the bedside. Had 2 bowel movements. Urine output 1350cc per day, WBC trending down to 14 serum bicarb increased to 22. Overnight, Patient did not get D5 with bicarb 1 L. 02/09 - patient seen and examined at the bedside. Reports feeling better. Had a bowel movement. No suprapubic tenderness. Other Systems: Patient seen and examined by myself with the medicine resident today on rounds, I agree with his assessment and plan Objective vital signs Vital Sign Date Time Temp Pulse Resp B/P (MAP) Pulse Ox O2 Delivery O2 Flow Rate FiO2 02/09/25 10:34 95 Room Air 0.0 02/09/25 10:34 21 02/09/25 10:03 64 117/44 02/09/25 09:00 98.0 20 98.0 Total Intake and Output 02/08/25 02/08/25 02/09/25 15:00 23:00 07:00 Intake Total 50 ml 2100 ml Output Total 1050 ml Balance 50 ml -1050 ml 2100 ml medications Current Medications Medications Dose Ordered Sig/Tanya Route Start Time Stop Time Status Last Admin Dose Admin Metronidazole 100 ml @ 100 mls/hr Q8HR IV 02/06/25 06:00 02/09/25 05:54 100 MLS/HR Carvedilol 6.25 mg Q12HR PO 02/06/25 10:00 02/09/25 10:03 6.25 MG Rifaximin 550 mg BID PO 02/06/25 10:00 02/08/25 22:06 550 MG Pantoprazole Sodium 40 mg DAILY IV 02/06/25 10:00 02/09/25 10:04 40 MG Diagnostic Test (Pha) 1 strip Q6HR 02/06/25 00:00 02/09/25 06:01 1 STRIP Insulin Human Regular Q6HR SC 02/06/25 00:00 02/09/25 06:21 3 UNITS Dextrose 50 ml UD PRN IV 02/05/25 22:15 Ondansetron HCl 4 mg Q4HP PRN IV 02/05/25 22:15 02/09/25 04:27 4 MG Acetaminophen 650 mg Q6HP PRN PO 02/05/25 22:15 Docusate Sodium 100 mg BID PO 02/06/25 10:00 02/08/25 22:06 100 MG Lactulose 30 ml Q6HR PO 02/06/25 18:00 02/09/25 05:54 30 ML Ceftriaxone Sodium/Dextrose 50 ml @ 50 mls/hr DAILY@0900 IV 02/07/25 09:00 02/08/25 10:02 50 MLS/HR Albuterol 2.5 mg Q6HPRN PRN NEB 02/08/25 00:45 Dextrose/Sodium Chloride 1,000 ml @ 75 mls/hr [id number] IV 02/08/25 12:00 02/09/25 06:10 75 MLS/HR Morphine Sulfate 2 mg Q4HPRN PRN IV 02/08/25 14:45 02/09/25 06:01 2 MG Examination Patient lying in bed, in no acute distress General: Well-built, afebrile, scleral icterus, mucosae are moist Cardiovascular: Regular S1 and S2. No murmurs, gallops or rubs. No JVD elevation. trace bilateral pedal edema Respiratory: Normal B/L air entry on room air. Clear lung sounds on auscultation Abdomen: Soft, resolved suprapubic tenderness, distended, hyperactive bowel sounds, no rebound tenderness, no organomegaly, no masses Genitourinary: Lopez draining clear urine. MSK/skin: Mobilizes 4 limbs. Skin is dry and warm Neurological: No motor, no sensitive deficits, normal speech. Pupils are isocoric and reactive. Psych/Mental Status: A/Ox3 laboratory and microbiology Laboratory Tests 02/09/25 06:18 Test 02/09/25 06:18 Range/Units Serum Glucose 187 H 74-106 mg/dL Microbiology Date/Time Source Procedure Growth Status 02/05/25 20:41 Blood Blood Culture - Preliminary NO GROWTH AFTER 72 HOURS OF INCUBATION. Resulted Labs and/or images reviewed: Labs reviewed by me, Image(s) reviewed by me Problem List/Assessment/Plan Problem List/Assessment/Plan Acute kidney injury, likely prerenal, rule out HRS versus ATN Rule out urinary obstruction Sepsis due to SBO versus ileus Decompensated liver cirrhosis History of hepatic encephalopathy Hyperkalemia Heart failure with preserved ejection fraction Diabetes mellitus type 2 History of paroxysmal AFib History of pneumonia status and intubation History of [place] Hypertension Chronic thrombocytopenia Morbid obesity FENA 0.5 prerenal Urine protein excretion 0.6 g per day Creatinine clearance 10 Small bowel series with Gastrografin shows Contrast is identified within the colon by 4 hours. This represents a delayed small bowel transit time without definite obstruction. Clinical correlation advised. Plan: Continue Lopez placement until Urology clears. Consider Urology evaluation. Serum bicarb trended up to 23. BUN/creatinine trending down IV NS 75cc 500ml ordered Bladder scan 02/07 showed 150 cc 02/07- patient did not receive 1 L D5 with 3 ampules of bicarb ordered 02/06- 1 L D5 with 3 amps bicarb and 3 bags of albumin administered Surgical consultation appreciated IR Consulted for Paracentesis, no ascites, preliminary blood culture negative Continue IV ceftriaxone 2 g daily Lactic acid downtrending 2.1, IV fluid Started clear liquid diet Plan discussed with patient in which all questions have been answered Case discussed with Dr. Aguilera Plan discussed with: Patient Dietary Evaluation Review Comments: 1) [facility] + Renal specific 60gm as medically feasible 2) Refer to CDE on DC 3) Continue current plan of care Expected Outcomes/Goals: To meet 75% estimated needs fu 2-3 days TYRELL TAVAREZ February 09, 2025 11:05 JOAQUIM AGUILERA MD February 09, 2025 12:55
--- NOTE | 2025-02-09 15:24 | DVH ---
EXAM: XY CHEST XRAY 1 VIEW HISTORY: FOR NG PLACEMENT COMPARISON: XY CHEST XRAY 1 VIEW on DOS: 02/06/25, XY CHEST XRAY 1 VIEW on DOS: 02/04/25, XY CHEST PORTAB LE on DOS: 07/19/24 TECHNIQUE: Portable upright AP view of the lower chest was performed. FINDINGS/IMPRESSION: 1. NG tube is identified with its tip in the stomach 5.5 cm above the josé antonio. 2. Bilateral lung base scarring and/or atelectasis, [id number]-left.
[2025-02-09] MEDS: SODIUM CHLORIDE 0.9% 500 ML IV ONE (15:48)
--- NOTE | 2025-02-09 17:42 | DVHPN2 ---
Subjective c/o increase pain and abd swelling with vomiting He said he was hungry this am and wanted to eat, he was given clear liquids but started vomiting again Changes from previous H/P or p: Changes Objective Vitals Vital Signs Date Time Temp Pulse Resp B/P (MAP) Pulse Ox O2 Delivery O2 Flow Rate FiO2 02/09/25 17:00 98.3 72 20 121/40 (67) 94 98.3 02/09/25 10:34 Room Air 0.0 02/09/25 10:34 21 Intake/Output Intake and Output 02/09/25 07:00 Intake Total 2150 ml Output Total 1050 ml Balance 1100 ml Intake Oral 900 ml IV Total 1250 ml Output Urine Total 1050 ml # Bowel Movements 3 General Appearance: Alert, Oriented X3, Cooperative, No acute distress Lungs: Clear to auscultation Cardiovascular: Regular rate, Normal S1, Normal S2 Abdomen: Normal bowel sounds, Other (Distended and generalized tenderness) Extremities: Other (1+ edema bilaterally in the lower extremities) Medications Current Medications Medications Dose Ordered Sig/Tanya Route Start Time Stop Time Status Last Admin Dose Admin Metronidazole 100 ml @ 100 mls/hr Q8HR IV 02/06/25 06:00 02/09/25 15:47 100 MLS/HR Carvedilol 6.25 mg Q12HR PO 02/06/25 10:00 02/09/25 10:03 6.25 MG Rifaximin 550 mg BID PO 02/06/25 10:00 02/09/25 11:23 550 MG Pantoprazole Sodium 40 mg DAILY IV 02/06/25 10:00 02/09/25 10:04 40 MG Diagnostic Test (Pha) 1 strip Q6HR 02/06/25 00:00 02/09/25 12:18 1 STRIP Insulin Human Regular Q6HR SC 02/06/25 00:00 02/09/25 12:27 3 UNITS Dextrose 50 ml UD PRN IV 02/05/25 22:15 Ondansetron HCl 4 mg Q4HP PRN IV 02/05/25 22:15 02/09/25 04:27 4 MG Acetaminophen 650 mg Q6HP PRN PO 02/05/25 22:15 Docusate Sodium 100 mg BID PO 02/06/25 10:00 02/08/25 22:06 100 MG Lactulose 30 ml Q6HR PO 02/06/25 18:00 02/09/25 12:18 30 ML Ceftriaxone Sodium/Dextrose 50 ml @ 50 mls/hr DAILY@0900 IV 02/07/25 09:00 02/09/25 11:21 50 MLS/HR Albuterol 2.5 mg Q6HPRN PRN NEB 02/08/25 00:45 Dextrose/Sodium Chloride 1,000 ml @ 75 mls/hr [id number] IV 02/08/25 12:00 02/09/25 06:10 75 MLS/HR Morphine Sulfate 2 mg Q4HPRN PRN IV 02/08/25 14:45 02/09/25 11:23 2 MG Laboratory Results Laboratory Tests 02/09/25 06:18 Chemistry Test 02/09/25 06:18 Calcium Level 8.0 mg/dL (8.7-10.4) L Urinalysis Test 02/07/25 01:30 Urine Color Yellow (Yellow) Urine Clarity Clear (Clear) Urine pH 5.0 (5.0-9.0) Urine Specific [place] 1.021 (1.001-1.035) Urine Protein 1+ (Negative) H Urine Ketones Trace (Negative) Urine Blood 2+ /uL (Negative) H Urine Nitrite Negative (Negative) Urine Bilirubin Negative (Negative) Urine Urobilinogen Normal mg/dL (Negative) Urine Leukocyte Esterase Negative /uL (Negative) Urine RBC 1 /hpf (0 - 3) Urine Microscopic WBC 3 /HPF (0-3) Urine Squamous Epithelial Cells Few /hpf (<5) Urine Bacteria None seen /hpf (None Seen) Urine Hyaline Casts Few /lpf (0 - 2) Urine Mucus Few (None Seen) Urine Yeast (Budding) Occasional /hpf (None Urine Creatinine 102.35 mg/dL (30.0-125.0) Urine Protein/Creatinine Ratio 0.61 Urine Sodium 15 mmol/L (40-220) L Urine Glucose 2+ mg/dL (Normal) H Urine Total Protein 62.1 mg/dL (1-14) H Microbiology Microbiology Date/Time Source Procedure Growth Status 02/05/25 20:41 Blood Blood Culture - Preliminary NO GROWTH AFTER 72 HOURS OF INCUBATION. Resulted Assessment/Plan Assessment/Plan Abdominal pain Rule out bowel obstructionsurgical Intractable nausea and vomiting Constipation Hepatic encephalopathy Liver cirrhosis Possible hepatorenal syndrome Acute kidney injury/chronic kidney disease Thrombocytopenia Leukocytosis Type 2 diabetes Hypertension Mixed hyperlipidemia Ascites Lactic acidosis Hyperkalemia Hyponatremia Moderate protein malnutrition Plan Keep NPO Surgical consult Continue lactulose Continue rifaximin GI consult Nephrology consult Paracentesis was attempted, not enough ascites fluids for the procedure to be done Hepatorenal syndrome? : Give albumin IV IV ceftriaxone and Flagyl empirically Full code Advance directives discussed for 20 minute 02/07/2025: Hyponatremia Hyperkalemia Acute kidney injury: Worsening, nephrology on board Metabolic acidosis Chronic kidney disease Liver cirrhosis Hepatic encephalopathy: Improved continue lactulose Abdominal distention and pain: Surgical consult pending 02/08/2025: Small bowel series today to rule out bowel obstruction GI is on board Nephrology is on board Kidney function is improving with a creatinine of 3.0 and carbon dioxide of 22 today Monitor closely 02/09/25: Abdominal pain, Vomiting SBO vs Ileus: NPO, NG tube to suction, surgical consult Urinary retention: Lopez IV fluids IV antibiotics Plan discussed with: Patient My Orders Orders - JOVON LOPEZ MD Procedure Category Date Status Time Ng To Lis JANET 02/09/25 In Process 14:10 Npo (Nothing By DIET 02/09/25 Transmitted Mouth) Diet Dinner * Surgical Consult CONS 02/09/25 Transmitted 14:25 Chest Xray 1 View XY 02/09/25 Resulted 14:41 Date of Service: February 09, 2025 Billing Provider: JOVON LOPEZ MD Common Visit Codes: [id number] INP/OBS CARE(HIGH) JOVON LOPEZ MD February 09, 2025 17:42
--- NOTE | 2025-02-09 23:19 | DVHPN2 ---
Progress Note - Dictate Date Seen: February 09, 2025 Medical Necessity Reason Pt with a Central, PICC or Fol: No Subjective 69 y o male with recurrent admissions due to hepatic encephalopathy secondary to alcoholic liver cirrhosis, hyperammonemia, history of 2 [place] 30 years back, CKD 3B, diabetes mellitus type 2, heart failure with preserved ejection fraction at 60%, colonoscopy status post polypectomy in 2019, paroxysmal atrial fibrillation, splenomegaly, UTI, pneumonia status post intubation in 2018, hypertension and hyperlipidemia 02/07/25 : patient has moderate abdominal distention but at this time denies any abdominal discomfort, there was no nausea vomiting or GI bleeding;Abdominal ultrasound did not show enough ascites for paracentesis KUB shows moderate amount of small bowel distention SBFT c/w ileus vital signs Vital Sign Date Time Temp Pulse Resp B/P (MAP) Pulse Ox O2 Delivery O2 Flow Rate FiO2 02/09/25 22:23 61 145/70 02/09/25 19:47 96 Room Air* 0 21 02/09/25 17:00 98.3 20 98.3 Total Intake and Output 02/08/25 02/08/25 02/09/25 15:00 23:00 07:00 Intake Total 50 ml 2100 ml Output Total 1050 ml Balance 50 ml -1050 ml 2100 ml medications Current Medications Medications Dose Ordered Sig/Tanya Route Start Time Stop Time Status Last Admin Dose Admin Metronidazole 100 ml @ 100 mls/hr Q8HR IV 02/06/25 06:00 02/09/25 22:26 100 MLS/HR Carvedilol 6.25 mg Q12HR PO 02/06/25 10:00 02/09/25 22:23 6.25 MG Rifaximin 550 mg BID PO 02/06/25 10:00 02/09/25 11:23 550 MG Pantoprazole Sodium 40 mg DAILY IV 02/06/25 10:00 02/09/25 10:04 40 MG Diagnostic Test (Pha) 1 strip Q6HR 02/06/25 00:00 02/09/25 18:23 1 STRIP Insulin Human Regular Q6HR SC 02/06/25 00:00 02/09/25 12:27 3 UNITS Dextrose 50 ml UD PRN IV 02/05/25 22:15 Ondansetron HCl 4 mg Q4HP PRN IV 02/05/25 22:15 02/09/25 04:27 4 MG Acetaminophen 650 mg Q6HP PRN PO 02/05/25 22:15 Docusate Sodium 100 mg BID PO 02/06/25 10:00 02/09/25 22:23 100 MG Lactulose 30 ml Q6HR PO 02/06/25 18:00 02/09/25 12:18 30 ML Ceftriaxone Sodium/Dextrose 50 ml @ 50 mls/hr DAILY@0900 IV 02/07/25 09:00 02/09/25 11:21 50 MLS/HR Albuterol 2.5 mg Q6HPRN PRN NEB 02/08/25 00:45 Dextrose/Sodium Chloride 1,000 ml @ 75 mls/hr [id number] IV 02/08/25 12:00 02/09/25 06:10 75 MLS/HR Morphine Sulfate 2 mg Q4HPRN PRN IV 02/08/25 14:45 02/09/25 11:23 2 MG objective General: Well-built, obese, slight scleral icterus, mucosae are moist Cardiovascular: Regular S1 and S2 rrr trace bilateral pedal edema Respiratory: Normal B/L air entry on room air. Clear lung sounds on auscultation Abdomen: Soft, Distended, hypoactive bowel sounds, no rebound tenderness, no organomegaly, no masses Neurological: No motor, no sensitive deficits, normal speech. Pupils are isocoric and reactive. Psych/Mental Status: A/Ox3 laboratory and microbiology Laboratory Tests 02/09/25 06:18 Test 02/09/25 06:18 Range/Units Serum Glucose 187 H 74-106 mg/dL Problems(with codes): (1) Ileus (2) Cirrhosis of liver (3) Lactic acidosis (4) Hepatic encephalopathy (5) Abdominal pain Prognosis PLAN Pt could not tolerate diet NGT to LIS : moderate 500 ml of bile Multiple bowel movements recorded Start IV Reglan 5 mg/hr Supportive care Outpt elective surveillance colonoscopy Dietary Evaluation Review Comments: 1) [facility] + Renal specific 60gm as medically feasible 2) Refer to CDE on DC 3) Continue current plan of care Expected Outcomes/Goals: To meet 75% estimated needs fu 2-3 days Plan discussed with: Patient ZENAIDA PENA MD February 09, 2025 23:19
[2025-02-10] VITALS (11 sets, daily range): BP systolic 127–148; BP diastolic 56–72; PULSE 64–81; RESP 17–20; TEMP 97.1–98.4; O2SAT 93–97
[2025-02-10 06:19] LABS: Basophils # (auto) 0 10 ^3/uL (0-0.2); Basophils % (auto) 0.1 % (0.0-2.0); Eosinophils # (auto) 0.2 10 ^3/uL (0-0.8); Eosinophils % (auto) 2.1 % (0.0-7.0); Hematocrit 37.1 % (41.0-53.0); Hemoglobin 12.5 g/dL (13.5-17.5); Lymphocytes # (auto) 1.3 10 ^3/uL (0.4-5.4); Lymphocytes % (auto) 11.7 % (10.0-50.0); Mean Corpuscular Hemoglobin 32.2 pg (28.0-32.0); Mean Corpuscular Hgb Conc. 33.7 g/dL (32.0-36.0); Mean Corpuscular Volume 95.7 fL (80.0-100.0); Monocytes # (auto) 1.2 10 ^3/uL (0-1.3); Monocytes % (auto) 10.8 % (0.0-12.0); Neutrophils # (auto) 8.5 10 ^3/uL (1.6-8.6); Neutrophils % (auto) 75.3 % (37.0-80.0); Nucleated Red Blood Cells % 0.6 %; Platelet Count (auto) 136 10^3/uL (140-450); Red Blood Cells 3.88 10^6/uL (4.5-5.90); Red Cell Distribution Width 18.5 % (11.8-14.3); White Blood Cell 11.3 10^3/uL (4.4-10.8)
[2025-02-10 06:38] LABS: Albumin 3.3 g/dL (3.2-4.8); Alkaline Phosphatase 88 U/L (46-116); Anion Gap 10 (5-15); BUN/Creatinine Ratio 31.8 (10.0-20.0); Carbon Dioxide 24 mmol/L (20-31); Potassium 5.1 mmol/L (3.5-5.1); Sodium 142 mmol/L (136-145)
[2025-02-10 06:44] LABS: Alanine Aminotransferase 107 U/L (7-40); Aspartate Aminotransferase 64 U/L (13-40); Bilirubin, Total 2.2 mg/dL (0.2-1.0); Blood Urea Nitrogen 63 mg/dL (9-23); Calcium 8.3 mg/dL (8.7-10.4); Chloride 108 mmol/L (98-107); Glucose 179 mg/dL (74-106); Magnesium 2.8 mg/dL (1.6-2.6); Total Protein 5.7 g/dL (5.7-8.2)
[2025-02-10 07:44] LABS: INR 1.35 (0.9-1.15); Partial Thromboplastin Time 39.6 SEC (24.5-34.5); Prothrombin Time 13.9 sec (9.3-11.8)
--- NOTE | 2025-02-10 10:39 | DVHPN2 ---
Progress Note Date Seen: February 10, 2025 Medical Necessity Reason Pt with a Central, PICC or Fol: No Subjective Patient reports: No new complaints Other Systems: Patient seen and examined by myself today in follow-up Objective vital signs Vital Sign Date Time Temp Pulse Resp B/P (MAP) Pulse Ox O2 Delivery O2 Flow Rate FiO2 02/10/25 10:17 81 129/66 02/10/25 05:00 98.3 17 94 98.3 02/09/25 20:00 Room Air* 0 21 Total Intake and Output 02/09/25 02/09/25 02/10/25 15:00 23:00 07:00 Intake Total 500 ml 150 ml Output Total 6250 ml 3700 ml Balance -5750 ml -3550 ml medications Current Medications Medications Dose Ordered Sig/Tanya Route Start Time Stop Time Status Last Admin Dose Admin Metronidazole 100 ml @ 100 mls/hr Q8HR IV 02/06/25 06:00 02/10/25 05:43 100 MLS/HR Carvedilol 6.25 mg Q12HR PO 02/06/25 10:00 02/10/25 10:17 6.25 MG Rifaximin 550 mg BID PO 02/06/25 10:00 02/10/25 10:16 550 MG Pantoprazole Sodium 40 mg DAILY IV 02/06/25 10:00 02/10/25 10:19 40 MG Diagnostic Test (Pha) 1 strip Q6HR 02/06/25 00:00 02/10/25 05:43 1 STRIP Insulin Human Regular Q6HR SC 02/06/25 00:00 02/10/25 05:48 3 UNITS Dextrose 50 ml UD PRN IV 02/05/25 22:15 Ondansetron HCl 4 mg Q4HP PRN IV 02/05/25 22:15 02/09/25 04:27 4 MG Acetaminophen 650 mg Q6HP PRN PO 02/05/25 22:15 Docusate Sodium 100 mg BID PO 02/06/25 10:00 02/10/25 10:16 100 MG Lactulose 30 ml Q6HR PO 02/06/25 18:00 02/10/25 05:56 30 ML Ceftriaxone Sodium/Dextrose 50 ml @ 50 mls/hr DAILY@0900 IV 02/07/25 09:00 02/10/25 10:19 50 MLS/HR Albuterol 2.5 mg Q6HPRN PRN NEB 02/08/25 00:45 Dextrose/Sodium Chloride 1,000 ml @ 75 mls/hr [id number] IV 02/08/25 12:00 02/09/25 06:10 75 MLS/HR Morphine Sulfate 2 mg Q4HPRN PRN IV 02/08/25 14:45 02/09/25 11:23 2 MG Examination: LUNGS:Normal, CVS:Normal, MSK:Normal laboratory and microbiology Laboratory Tests 02/10/25 05:58 Test 02/10/25 05:58 Range/Units Serum Glucose 179 H 74-106 mg/dL Microbiology Date/Time Source Procedure Growth Status 02/05/25 20:41 Blood Blood Culture - Preliminary NO GROWTH AFTER 72 HOURS OF INCUBATION. Resulted Problem List/Assessment/Plan Problem List/Assessment/Plan Acute kidney injury secondary to hepatorenal syndrome Sepsis Decompensated liver cirrhosis hepatic encephalopathy Hyperkalemia, resolved Heart failure with preserved ejection fraction Diabetes mellitus type 2 History of [place] Hypertension Chronic thrombocytopenia Recommendations Kidney function is improving Increased urine output Strict I&Os We will continue to follow Plan discussed with: Patient Dietary Evaluation Review Comments: 1) [facility] + Renal specific 60gm as medically feasible 2) Refer to CDE on DC 3) Continue current plan of care Expected Outcomes/Goals: To meet 75% estimated needs fu 2-3 days JOAQUIM HENDRICKS MD February 10, 2025 10:39
--- NOTE | 2025-02-10 12:29 | DVHPN2 ---
Subjective He is feeling better now after the NG tube was placed yesterday and significant amount of gastric content was drained His abdomen is softer now Changes from previous H/P or p: Changes Objective Vitals Vital Signs Date Time Temp Pulse Resp B/P (MAP) Pulse Ox O2 Delivery O2 Flow Rate FiO2 02/10/25 10:17 81 129/66 02/10/25 09:00 98.1 20 94 98.1 02/09/25 20:00 Room Air* 0 21 Intake/Output Intake and Output 02/10/25 07:00 Intake Total 650 ml Output Total 9950 ml Balance -9300 ml Intake Oral 400 ml IV Total 200 ml Tube Feeding 50 ml Output Urine Total 1650 ml Gastric Drainage Total 8300 ml General Appearance: Alert, Oriented X3, Cooperative, No acute distress Lungs: Clear to auscultation Cardiovascular: Regular rate, Normal S1, Normal S2 Abdomen: Normal bowel sounds, Other (Distended and generalized tenderness) Extremities: Other (1+ edema bilaterally in the lower extremities) Medications Current Medications Medications Dose Ordered Sig/Tanya Route Start Time Stop Time Status Last Admin Dose Admin Metronidazole 100 ml @ 100 mls/hr Q8HR IV 02/06/25 06:00 02/10/25 05:43 100 MLS/HR Carvedilol 6.25 mg Q12HR PO 02/06/25 10:00 02/10/25 10:17 6.25 MG Rifaximin 550 mg BID PO 02/06/25 10:00 02/10/25 10:16 550 MG Pantoprazole Sodium 40 mg DAILY IV 02/06/25 10:00 02/10/25 10:19 40 MG Diagnostic Test (Pha) 1 strip Q6HR 02/06/25 00:00 02/10/25 11:42 1 STRIP Insulin Human Regular Q6HR SC 02/06/25 00:00 02/10/25 11:56 2 UNITS Dextrose 50 ml UD PRN IV 02/05/25 22:15 Ondansetron HCl 4 mg Q4HP PRN IV 02/05/25 22:15 02/09/25 04:27 4 MG Acetaminophen 650 mg Q6HP PRN PO 02/05/25 22:15 Docusate Sodium 100 mg BID PO 02/06/25 10:00 02/10/25 10:16 100 MG Lactulose 30 ml Q6HR PO 02/06/25 18:00 02/10/25 11:59 30 ML Ceftriaxone Sodium/Dextrose 50 ml @ 50 mls/hr DAILY@0900 IV 02/07/25 09:00 02/10/25 10:19 50 MLS/HR Albuterol 2.5 mg Q6HPRN PRN NEB 02/08/25 00:45 Dextrose/Sodium Chloride 1,000 ml @ 75 mls/hr [id number] IV 02/08/25 12:00 02/09/25 06:10 75 MLS/HR Morphine Sulfate 2 mg Q4HPRN PRN IV 02/08/25 14:45 02/09/25 11:23 2 MG Laboratory Results Laboratory Tests 02/10/25 05:58 Chemistry Test 02/10/25 05:58 Albumin 3.3 g/dL (3.2-4.8) Calcium Level 8.3 mg/dL (8.7-10.4) L Magnesium Level 2.8 mg/dL (1.6-2.6) H Total Protein 5.7 g/dL (5.7-8.2) Coagulation Test 02/10/25 05:58 Prothrombin Time 13.9 sec (9.3-11.8) H Prothrombin Time INR 1.35 (0.9-1.15) H Activated Partial Thromboplast Time 39.6 SEC (24.5-34.5) H LFT Test 02/10/25 05:58 Alanine Aminotransferase (ALT) 107 U/L (7-40) H Alkaline Phosphatase 88 U/L (46-116) Aspartate Amino Transferase (AST) 64 U/L (13-40) H Total Bilirubin 2.2 mg/dL (0.2-1.0) H Urinalysis Test 02/07/25 01:30 Urine Color Yellow (Yellow) Urine Clarity Clear (Clear) Urine pH 5.0 (5.0-9.0) Urine Specific [place] 1.021 (1.001-1.035) Urine Protein 1+ (Negative) H Urine Ketones Trace (Negative) Urine Blood 2+ /uL (Negative) H Urine Nitrite Negative (Negative) Urine Bilirubin Negative (Negative) Urine Urobilinogen Normal mg/dL (Negative) Urine Leukocyte Esterase Negative /uL (Negative) Urine RBC 1 /hpf (0 - 3) Urine Microscopic WBC 3 /HPF (0-3) Urine Squamous Epithelial Cells Few /hpf (<5) Urine Bacteria None seen /hpf (None Seen) Urine Hyaline Casts Few /lpf (0 - 2) Urine Mucus Few (None Seen) Urine Yeast (Budding) Occasional /hpf (None Urine Creatinine 102.35 mg/dL (30.0-125.0) Urine Protein/Creatinine Ratio 0.61 Urine Sodium 15 mmol/L (40-220) L Urine Glucose 2+ mg/dL (Normal) H Urine Total Protein 62.1 mg/dL (1-14) H Microbiology Microbiology Date/Time Source Procedure Growth Status 02/05/25 20:41 Blood Blood Culture - Preliminary NO GROWTH AFTER 72 HOURS OF INCUBATION. Resulted Assessment/Plan Assessment/Plan Abdominal pain Rule out bowel obstructionsurgical Intractable nausea and vomiting Constipation Hepatic encephalopathy Liver cirrhosis Possible hepatorenal syndrome Acute kidney injury/chronic kidney disease Thrombocytopenia Leukocytosis Type 2 diabetes Hypertension Mixed hyperlipidemia Ascites Lactic acidosis Hyperkalemia Hyponatremia Moderate protein malnutrition Plan Keep NPO Surgical consult Continue lactulose Continue rifaximin GI consult Nephrology consult Paracentesis was attempted, not enough ascites fluids for the procedure to be done Hepatorenal syndrome? : Give albumin IV IV ceftriaxone and Flagyl empirically Full code Advance directives discussed for 20 minute 02/07/2025: Hyponatremia Hyperkalemia Acute kidney injury: Worsening, nephrology on board Metabolic acidosis Chronic kidney disease Liver cirrhosis Hepatic encephalopathy: Improved continue lactulose Abdominal distention and pain: Surgical consult pending 02/08/2025: Small bowel series today to rule out bowel obstruction GI is on board Nephrology is on board Kidney function is improving with a creatinine of 3.0 and carbon dioxide of 22 today Monitor closely 02/09/25: Abdominal pain, Vomiting SBO vs Ileus: NPO, NG tube to suction, surgical consult Urinary retention: Lopez IV fluids IV antibiotics 02/10/2025: Continue NG tube suction Surgical consult Continue NPO Lopez catheter IV fluids IV antibiotics Monitor closely Plan discussed with: Patient My Orders Orders - JOVON LOPEZ MD Procedure Category Date Status Time Npo (Nothing By DIET 02/09/25 Transmitted Mouth) Diet Dinner * Surgical Consult CONS 02/09/25 Transmitted 14:25 Chest Xray 1 View XY 02/09/25 Resulted 14:41 Date of Service: February 10, 2025 Billing Provider: JOVON LOPEZ MD Common Visit Codes: [id number] INP/OBS CARE(HIGH) JOVON LOPEZ MD February 10, 2025 12:29
--- NOTE | 2025-02-10 17:10 | DVHPN2 ---
Progress Note - Dictate Date Seen: February 10, 2025 Medical Necessity Reason Pt with a Central, PICC or Fol: No Subjective 69 y o male with recurrent admissions due to hepatic encephalopathy secondary to alcoholic liver cirrhosis, hyperammonemia, history of 2 PA 30 years back, CKD 3B, diabetes mellitus type 2, heart failure with preserved ejection fraction at 60%, colonoscopy status post polypectomy in 2019, paroxysmal atrial fibrillation, splenomegaly, UTI, pneumonia status post intubation in 2018, hypertension and hyperlipidemia 02/07/25 : patient has moderate abdominal distention but at this time denies any abdominal discomfort, there was no nausea vomiting or GI bleeding; Abdominal ultrasound did not show enough ascites for paracentesis KUB shows moderate amount of small bowel distention SBFT c/w ileus 02/10/25 vital signs Vital Sign Date Time Temp Pulse Resp B/P (MAP) Pulse Ox O2 Delivery O2 Flow Rate FiO2 02/10/25 13:00 98.3 70 18 127/64 (85) 95 98.3 02/10/25 11:39 Room Air 0.0 02/10/25 11:39 21 Total Intake and Output 02/09/25 02/09/25 02/10/25 15:00 23:00 07:00 Intake Total 500 ml 150 ml Output Total 6250 ml 3700 ml Balance -5750 ml -3550 ml medications Current Medications Medications Dose Ordered Sig/Tanya Route Start Time Stop Time Status Last Admin Dose Admin Metronidazole 100 ml @ 100 mls/hr Q8HR IV 02/06/25 06:00 02/10/25 14:00 100 MLS/HR Carvedilol 6.25 mg Q12HR PO 02/06/25 10:00 02/10/25 10:17 6.25 MG Rifaximin 550 mg BID PO 02/06/25 10:00 02/10/25 10:16 550 MG Pantoprazole Sodium 40 mg DAILY IV 02/06/25 10:00 02/10/25 10:19 40 MG Diagnostic Test (Pha) 1 strip Q6HR 02/06/25 00:00 02/10/25 11:42 1 STRIP Insulin Human Regular Q6HR SC 02/06/25 00:00 02/10/25 11:56 2 UNITS Dextrose 50 ml UD PRN IV 02/05/25 22:15 Ondansetron HCl 4 mg Q4HP PRN IV 02/05/25 22:15 02/09/25 04:27 4 MG Acetaminophen 650 mg Q6HP PRN PO 02/05/25 22:15 Docusate Sodium 100 mg BID PO 02/06/25 10:00 02/10/25 10:16 100 MG Lactulose 30 ml Q6HR PO 02/06/25 18:00 02/10/25 11:59 30 ML Ceftriaxone Sodium/Dextrose 50 ml @ 50 mls/hr DAILY@0900 IV 02/07/25 09:00 02/10/25 10:19 50 MLS/HR Albuterol 2.5 mg Q6HPRN PRN NEB 02/08/25 00:45 Dextrose/Sodium Chloride 1,000 ml @ 75 mls/hr [id number] IV 02/08/25 12:00 02/09/25 06:10 75 MLS/HR Morphine Sulfate 2 mg Q4HPRN PRN IV 02/08/25 14:45 02/09/25 11:23 2 MG objective General: Well-built, obese, slight scleral icterus, mucosae are moist Cardiovascular: Regular S1 and S2 rrr trace bilateral pedal edema Respiratory: Normal B/L air entry on room air. Clear lung sounds on auscultation Abdomen: Soft, Distended, hypoactive bowel sounds, no rebound tenderness, no organomegaly, no masses Neurological: No motor, no sensitive deficits, normal speech. Pupils are isocoric and reactive. Psych/Mental Status: A/Ox3 laboratory and microbiology Laboratory Tests 02/10/25 05:58 Test 02/10/25 05:58 Range/Units Serum Glucose 179 H 74-106 mg/dL Problems(with codes): (1) Ileus (2) Cirrhosis of liver (3) GERD (gastroesophageal reflux disease) (4) Hepatic encephalopathy (5) Abdominal pain Prognosis PLAN Continue NG tube suction Surgical consult May try ice chips Lopez catheter IV fluids IV antibiotics Monitor closely IV Reglan 5 mg/hr Supportive care Outpt elective surveillance colonoscopy Dietary Evaluation Review Comments: 1) Advance to CCHO 60gm + Renal specific 60gm as medically feasible 2) Refer to CDE on DC 3) Continue current plan of care Expected Outcomes/Goals: To meet 75% estimated needs fu 2-3 days Plan discussed with: Patient ZENAIDA PENA MD February 10, 2025 17:10
[2025-02-11] VITALS (12 sets, daily range): BP systolic 126–152; BP diastolic 45–83; PULSE 70–94; RESP 18–24; TEMP 96.7–98.5; O2SAT 93–99
[2025-02-11] MEDS: ACETAMINOPHEN 325 MG TAB PO PRN (03:25)
[2025-02-11 07:10] LABS: Basophils # (auto) 0 10 ^3/uL (0-0.2); Basophils % (auto) 0.1 % (0.0-2.0); Eosinophils # (auto) 0.4 10 ^3/uL (0-0.8); Eosinophils % (auto) 3.9 % (0.0-7.0); Hematocrit 38.1 % (41.0-53.0); Hemoglobin 12.9 g/dL (13.5-17.5); Lymphocytes # (auto) 1.2 10 ^3/uL (0.4-5.4); Lymphocytes % (auto) 12.3 % (10.0-50.0); Mean Corpuscular Hemoglobin 33.1 pg (28.0-32.0); Mean Corpuscular Hgb Conc. 33.9 g/dL (32.0-36.0); Mean Corpuscular Volume 97.6 fL (80.0-100.0); Monocytes # (auto) 1.1 10 ^3/uL (0-1.3); Monocytes % (auto) 11.2 % (0.0-12.0); Neutrophils % (auto) 72.5 % (37.0-80.0); Nucleated Red Blood Cells % 0.5 %; Platelet Count (auto) 143 10^3/uL (140-450); Red Cell Distribution Width 19.5 % (11.8-14.3); White Blood Cell 9.6 10^3/uL (4.4-10.8)
[2025-02-11 07:31] LABS: Alkaline Phosphatase 82 U/L (46-116); Anion Gap 11 (5-15); BUN/Creatinine Ratio 30.5 (10.0-20.0); Carbon Dioxide 23 mmol/L (20-31); Potassium 4.9 mmol/L (3.5-5.1)
[2025-02-11 07:34] LABS: Alanine Aminotransferase 88 U/L (7-40); Aspartate Aminotransferase 50 U/L (13-40); Bilirubin, Total 2.1 mg/dL (0.2-1.0); Blood Urea Nitrogen 50 mg/dL (9-23); Calcium 8.1 mg/dL (8.7-10.4); Chloride 113 mmol/L (98-107); Glucose 181 mg/dL (74-106); Sodium 147 mmol/L (136-145); Total Protein 5.4 g/dL (5.7-8.2)
[2025-02-11] MEDS: ALBUTEROL SULF 2.5 MG/0.5ML(0.5%) NEB SOLN NEB PRN (09:44)
--- NOTE | 2025-02-11 10:40 | DVHPN2 ---
Progress Note Date Seen: February 11, 2025 Medical Necessity Reason Pt with a Central, PICC or Fol: No Subjective Patient reports: No new complaints Other Systems: Patient seen and examined by myself today in follow-up Objective vital signs Vital Sign Date Time Temp Pulse Resp B/P (MAP) Pulse Ox O2 Delivery O2 Flow Rate FiO2 02/11/25 09:44 95 Room Air* 0 21 02/11/25 09:44 73 24 02/11/25 09:00 98.0 141/61 (87) 98.0 Total Intake and Output 02/10/25 02/10/25 02/11/25 14:59 22:59 06:59 Intake Total 50 ml 200 ml 1550 ml Output Total 1750 ml 2000 ml Balance 50 ml -1550 ml -450 ml medications Current Medications Medications Dose Ordered Sig/Tanya Route Start Time Stop Time Status Last Admin Dose Admin Metronidazole 100 ml @ 100 mls/hr Q8HR IV 02/06/25 06:00 02/11/25 05:22 100 MLS/HR Carvedilol 6.25 mg Q12HR PO 02/06/25 10:00 02/10/25 21:57 6.25 MG Rifaximin 550 mg BID PO 02/06/25 10:00 02/10/25 21:56 550 MG Pantoprazole Sodium 40 mg DAILY IV 02/06/25 10:00 02/10/25 10:19 40 MG Diagnostic Test (Pha) 1 strip Q6HR 02/06/25 00:00 02/11/25 05:23 1 STRIP Insulin Human Regular Q6HR SC 02/06/25 00:00 02/11/25 05:32 2 UNITS Dextrose 50 ml UD PRN IV 02/05/25 22:15 Ondansetron HCl 4 mg Q4HP PRN IV 02/05/25 22:15 02/09/25 04:27 4 MG Acetaminophen 650 mg Q6HP PRN PO 02/05/25 22:15 02/11/25 03:25 650 MG Docusate Sodium 100 mg BID PO 02/06/25 10:00 02/10/25 21:56 100 MG Lactulose 30 ml Q6HR PO 02/06/25 18:00 02/11/25 05:22 30 ML Ceftriaxone Sodium/Dextrose 50 ml @ 50 mls/hr DAILY@0900 IV 02/07/25 09:00 02/10/25 10:19 50 MLS/HR Albuterol 2.5 mg Q6HPRN PRN NEB 02/08/25 00:45 02/11/25 09:44 2.5 MG Dextrose/Sodium Chloride 1,000 ml @ 75 mls/hr [id number] IV 02/08/25 12:00 02/10/25 17:37 75 MLS/HR Morphine Sulfate 2 mg Q4HPRN PRN IV 02/08/25 14:45 02/11/25 05:24 2 MG Examination: LUNGS:Normal, CVS:Normal, MSK:Normal laboratory and microbiology Laboratory Tests 02/11/25 06:39 Test 02/11/25 06:39 Range/Units Serum Glucose 181 H 74-106 mg/dL Microbiology Date/Time Source Procedure Growth Status 02/05/25 20:41 Blood Blood Culture - Final NO GROWTH AFTER 5 DAYS OF INCUBATION. Complete Problem List/Assessment/Plan Problem List/Assessment/Plan Acute kidney injury secondary to hepatorenal syndrome Sepsis Decompensated liver cirrhosis hepatic encephalopathy Hyperkalemia, resolved Heart failure with preserved ejection fraction Diabetes mellitus type 2 History of GA Hypertension Chronic thrombocytopenia Recommendations Kidney function is improving Increased urine output Strict I&Os Hypotonic IV fluid Lactulose I will sign off this case please reconsult as needed Thank you for the consult Plan discussed with: Patient Dietary Evaluation Review Comments: 1) Advance to CCHO 60gm + Renal specific 60gm as medically feasible 2) Refer to CDE on DC 3) Continue current plan of care Expected Outcomes/Goals: To meet 75% estimated needs fu 2-3 days JOAQUIM HENDRICKS MD February 11, 2025 10:40
--- NOTE | 2025-02-11 12:11 | DVHPN2 ---
Progress Note - Dictate Date Seen: February 11, 2025 Medical Necessity Reason Pt with a Central, PICC or Fol: No Subjective 69 y o male with recurrent admissions due to hepatic encephalopathy secondary to alcoholic liver cirrhosis, hyperammonemia, history of 2 PA 30 years back, CKD 3B, diabetes mellitus type 2, heart failure with preserved ejection fraction at 60%, colonoscopy status post polypectomy in 2019, paroxysmal atrial fibrillation, splenomegaly, UTI, pneumonia status post intubation in 2018, hypertension and hyperlipidemia 02/07/25 : patient has moderate abdominal distention but at this time denies any abdominal discomfort, there was no nausea vomiting or GI bleeding; Abdominal ultrasound did not show enough ascites for paracentesis KUB shows moderate amount of small bowel distention SBFT c/w ileus 02/11/25: Patient is still having moderate amount of output via the NG tube about 1 L however the patient has been drinking moderate amount of ice chips and melted water. He has not had a bowel movements today but there were three or four recorded bowel movements on 02/09/2025. Patient states he is very hungry and he has nothing in his intestines There was no abdominal pain no nausea or vomiting vital signs Vital Sign Date Time Temp Pulse Resp B/P (MAP) Pulse Ox O2 Delivery O2 Flow Rate FiO2 02/11/25 10:39 71 18 141/61 02/11/25 09:44 95 Room Air* 0 21 02/11/25 09:00 98.0 98.0 Total Intake and Output 02/10/25 02/10/25 02/11/25 14:59 22:59 06:59 Intake Total 50 ml 200 ml 1550 ml Output Total 1750 ml 2000 ml Balance 50 ml -1550 ml -450 ml medications Current Medications Medications Dose Ordered Sig/Tanya Route Start Time Stop Time Status Last Admin Dose Admin Metronidazole 100 ml @ 100 mls/hr Q8HR IV 02/06/25 06:00 02/11/25 05:22 100 MLS/HR Carvedilol 6.25 mg Q12HR PO 02/06/25 10:00 02/11/25 10:38 6.25 MG Rifaximin 550 mg BID PO 02/06/25 10:00 02/11/25 10:39 550 MG Pantoprazole Sodium 40 mg DAILY IV 02/06/25 10:00 02/11/25 10:39 40 MG Diagnostic Test (Pha) 1 strip Q6HR 02/06/25 00:00 02/11/25 12:06 1 STRIP Insulin Human Regular Q6HR SC 02/06/25 00:00 02/11/25 05:32 2 UNITS Dextrose 50 ml UD PRN IV 02/05/25 22:15 Ondansetron HCl 4 mg Q4HP PRN IV 02/05/25 22:15 02/09/25 04:27 4 MG Acetaminophen 650 mg Q6HP PRN PO 02/05/25 22:15 02/11/25 03:25 650 MG Docusate Sodium 100 mg BID PO 02/06/25 10:00 02/11/25 10:38 100 MG Lactulose 30 ml Q6HR PO 02/06/25 18:00 02/11/25 05:22 30 ML Ceftriaxone Sodium/Dextrose 50 ml @ 50 mls/hr DAILY@0900 IV 02/07/25 09:00 02/11/25 10:37 50 MLS/HR Albuterol 2.5 mg Q6HPRN PRN NEB 02/08/25 00:45 02/11/25 09:44 2.5 MG Dextrose/Sodium Chloride 1,000 ml @ 75 mls/hr [id number] IV 02/08/25 12:00 02/10/25 17:37 75 MLS/HR Morphine Sulfate 2 mg Q4HPRN PRN IV 02/08/25 14:45 02/11/25 10:39 2 MG objective General: Well-built, obese, slight scleral icterus, mucosae are moist Cardiovascular: Regular S1 and S2 rrr trace bilateral pedal edema Respiratory: Normal B/L air entry on room air. Clear lung sounds on auscultation Abdomen: Soft, Distended, hypoactive bowel sounds, no rebound tenderness, no organomegaly, no masses Neurological: No motor, no sensitive deficits, normal speech. Pupils are isocoric and reactive. Psych/Mental Status: A/Ox3 laboratory and microbiology Laboratory Tests 02/11/25 06:39 Test 02/11/25 06:39 Range/Units Serum Glucose 181 H 74-106 mg/dL Problems(with codes): (1) Ileus (2) Cirrhosis of liver (3) GERD (gastroesophageal reflux disease) (4) UTI (urinary tract infection) (5) Lactic acidosis (6) Hepatic encephalopathy (7) Abdominal pain Prognosis Plan Clamp NG-tube for 4-6 hours If the patient is able to tolerate the clamping without nausea and vomiting then we will start him on clear liquid diet Continue supportive care Continue IV Reglan Continue IV PPI I will follow as needed Outpatient follow up with GI Services for elective panendoscopy upon discharge Dietary Evaluation Review Comments: 1) Advance to CCHO 60gm + Renal specific 60gm as medically feasible 2) Refer to CDE on DC 3) Continue current plan of care Expected Outcomes/Goals: To meet 75% estimated needs fu 2-3 days Plan discussed with: Patient, Other (Nurse) ZENAIDA PENA MD February 11, 2025 12:11
--- NOTE | 2025-02-11 12:23 | DVHPN2 ---
Subjective He is feeling better now after the NG tube was placed yesterday and significant amount of gastric content was drained His abdomen is softer now He is still on NG tube suction Awaiting surgical consult Changes from previous H/P or p: Changes Objective Vitals Vital Signs Date Time Temp Pulse Resp B/P (MAP) Pulse Ox O2 Delivery O2 Flow Rate FiO2 02/11/25 10:39 71 18 141/61 02/11/25 09:44 95 Room Air* 0 21 02/11/25 09:00 98.0 98.0 Intake/Output Intake and Output 02/11/25 07:00 Intake Total 1800 ml Output Total 3750 ml Balance -1950 ml Intake Oral 900 ml IV Total 900 ml Output Urine Total 750 ml Gastric Drainage Total 3000 ml General Appearance: Alert, Oriented X3, Cooperative, No acute distress Lungs: Clear to auscultation Cardiovascular: Regular rate, Normal S1, Normal S2 Abdomen: Normal bowel sounds, Other (Distended and generalized tenderness) Extremities: Other (1+ edema bilaterally in the lower extremities) Medications Current Medications Medications Dose Ordered Sig/Tanya Route Start Time Stop Time Status Last Admin Dose Admin Metronidazole 100 ml @ 100 mls/hr Q8HR IV 02/06/25 06:00 02/11/25 05:22 100 MLS/HR Carvedilol 6.25 mg Q12HR PO 02/06/25 10:00 02/11/25 10:38 6.25 MG Rifaximin 550 mg BID PO 02/06/25 10:00 02/11/25 10:39 550 MG Pantoprazole Sodium 40 mg DAILY IV 02/06/25 10:00 02/11/25 10:39 40 MG Diagnostic Test (Pha) 1 strip Q6HR 02/06/25 00:00 02/11/25 12:06 1 STRIP Insulin Human Regular Q6HR SC 02/06/25 00:00 02/11/25 05:32 2 UNITS Dextrose 50 ml UD PRN IV 02/05/25 22:15 Ondansetron HCl 4 mg Q4HP PRN IV 02/05/25 22:15 02/09/25 04:27 4 MG Acetaminophen 650 mg Q6HP PRN PO 02/05/25 22:15 02/11/25 03:25 650 MG Docusate Sodium 100 mg BID PO 02/06/25 10:00 02/11/25 10:38 100 MG Lactulose 30 ml Q6HR PO 02/06/25 18:00 02/11/25 05:22 30 ML Ceftriaxone Sodium/Dextrose 50 ml @ 50 mls/hr DAILY@0900 IV 02/07/25 09:00 02/11/25 10:37 50 MLS/HR Albuterol 2.5 mg Q6HPRN PRN NEB 02/08/25 00:45 02/11/25 09:44 2.5 MG Dextrose/Sodium Chloride 1,000 ml @ 75 mls/hr [id number] IV 02/08/25 12:00 02/10/25 17:37 75 MLS/HR Morphine Sulfate 2 mg Q4HPRN PRN IV 02/08/25 14:45 02/11/25 10:39 2 MG Laboratory Results Laboratory Tests 02/11/25 06:39 Chemistry Test 02/11/25 06:39 Albumin 3.0 g/dL (3.2-4.8) L Calcium Level 8.1 mg/dL (8.7-10.4) L Magnesium Level 3.0 mg/dL (1.6-2.6) H Total Protein 5.4 g/dL (5.7-8.2) L LFT Test 02/11/25 06:39 Alanine Aminotransferase (ALT) 88 U/L (7-40) H Alkaline Phosphatase 82 U/L (46-116) Aspartate Amino Transferase (AST) 50 U/L (13-40) H Total Bilirubin 2.1 mg/dL (0.2-1.0) H Urinalysis Test 02/07/25 01:30 Urine Color Yellow (Yellow) Urine Clarity Clear (Clear) Urine pH 5.0 (5.0-9.0) Urine Specific [place] 1.021 (1.001-1.035) Urine Protein 1+ (Negative) H Urine Ketones Trace (Negative) Urine Blood 2+ /uL (Negative) H Urine Nitrite Negative (Negative) Urine Bilirubin Negative (Negative) Urine Urobilinogen Normal mg/dL (Negative) Urine Leukocyte Esterase Negative /uL (Negative) Urine RBC 1 /hpf (0 - 3) Urine Microscopic WBC 3 /HPF (0-3) Urine Squamous Epithelial Cells Few /hpf (<5) Urine Bacteria None seen /hpf (None Seen) Urine Hyaline Casts Few /lpf (0 - 2) Urine Mucus Few (None Seen) Urine Yeast (Budding) Occasional /hpf (None Urine Creatinine 102.35 mg/dL (30.0-125.0) Urine Protein/Creatinine Ratio 0.61 Urine Sodium 15 mmol/L (40-220) L Urine Glucose 2+ mg/dL (Normal) H Urine Total Protein 62.1 mg/dL (1-14) H Microbiology Microbiology Date/Time Source Procedure Growth Status 02/05/25 20:41 Blood Blood Culture - Final NO GROWTH AFTER 5 DAYS OF INCUBATION. Complete Assessment/Plan Assessment/Plan Abdominal pain Rule out bowel obstructionsurgical Intractable nausea and vomiting Constipation Hepatic encephalopathy Liver cirrhosis Possible hepatorenal syndrome Acute kidney injury/chronic kidney disease Thrombocytopenia Leukocytosis Type 2 diabetes Hypertension Mixed hyperlipidemia Ascites Lactic acidosis Hyperkalemia Hyponatremia Moderate protein malnutrition Plan Keep NPO Surgical consult Continue lactulose Continue rifaximin GI consult Nephrology consult Paracentesis was attempted, not enough ascites fluids for the procedure to be done Hepatorenal syndrome? : Give albumin IV IV ceftriaxone and Flagyl empirically Full code Advance directives discussed for 20 minute 02/07/2025: Hyponatremia Hyperkalemia Acute kidney injury: Worsening, nephrology on board Metabolic acidosis Chronic kidney disease Liver cirrhosis Hepatic encephalopathy: Improved continue lactulose Abdominal distention and pain: Surgical consult pending 02/08/2025: Small bowel series today to rule out bowel obstruction GI is on board Nephrology is on board Kidney function is improving with a creatinine of 3.0 and carbon dioxide of 22 today Monitor closely 02/09/25: Abdominal pain, Vomiting SBO vs Ileus: NPO, NG tube to suction, surgical consult Urinary retention: Lopez IV fluids IV antibiotics 02/10/2025: Continue NG tube suction Surgical consult Continue NPO Lopez catheter IV fluids IV antibiotics Monitor closely 02/11/2025: Continue the current management with NG tube suction and NPO IV antibiotics IV fluids Awaiting surgical consult Monitor the patient closely The rest of the management will depend on the hospital course Plan discussed with: Patient Date of Service: February 11, 2025 Billing Provider: JOVON LOPEZ MD Common Visit Codes: [id number] INP/OBS CARE(HIGH) JOVON LOPEZ MD February 11, 2025 12:23
[2025-02-12] VITALS (10 sets, daily range): BP systolic 124–152; BP diastolic 69–88; PULSE 65–89; RESP 16–20; TEMP 97.7–98.7; O2SAT 92–94
[2025-02-12 08:35] LABS: Alkaline Phosphatase 85 U/L (46-116); Anion Gap 10 (5-15); BUN/Creatinine Ratio 30.7 (10.0-20.0); Carbon Dioxide 22 mmol/L (20-31); Potassium 5.1 mmol/L (3.5-5.1)
[2025-02-12 08:36] LABS: Alanine Aminotransferase 80 U/L (7-40); Albumin 3.1 g/dL (3.2-4.8); Aspartate Aminotransferase 44 U/L (13-40); Bilirubin, Total 2.4 mg/dL (0.2-1.0); Blood Urea Nitrogen 46 mg/dL (9-23); Calcium 8.3 mg/dL (8.7-10.4); Chloride 113 mmol/L (98-107); Glucose 164 mg/dL (74-106); Magnesium 2.9 mg/dL (1.6-2.6); Sodium 145 mmol/L (136-145); Total Protein 5.6 g/dL (5.7-8.2)
[2025-02-12] MEDS: GASTROGRAFIN 120 ML SOL ONE (09:19)
--- NOTE | 2025-02-12 13:57 | DVHPN2 ---
Subjective He says he is feeling better now that the NG tube is draining his stomach now He even says he is hungry and he wants to eat Changes from previous H/P or p: Changes Objective Vitals Vital Signs Date Time Temp Pulse Resp B/P (MAP) Pulse Ox O2 Delivery O2 Flow Rate FiO2 02/12/25 10:22 78 19 127/77 02/12/25 09:00 97.7 92 97.7 02/12/25 06:53 Room Air* 0 21 Intake/Output Intake and Output 02/12/25 07:00 Intake Total 1800 ml Output Total 4000 ml Balance -2200 ml Intake Oral 1450 ml IV Total 350 ml Output Urine Total 1000 ml Gastric Drainage Total 3000 ml General Appearance: Alert, Oriented X3, Cooperative, No acute distress Lungs: Clear to auscultation Cardiovascular: Regular rate, Normal S1, Normal S2 Abdomen: Normal bowel sounds, Other (Distended and generalized tenderness) Extremities: Other (1+ edema bilaterally in the lower extremities) Medications Current Medications Medications Dose Ordered Sig/Tanya Route Start Time Stop Time Status Last Admin Dose Admin Metronidazole 100 ml @ 100 mls/hr Q8HR IV 02/06/25 06:00 02/12/25 13:01 100 MLS/HR Carvedilol 6.25 mg Q12HR PO 02/06/25 10:00 02/12/25 09:19 6.25 MG Rifaximin 550 mg BID PO 02/06/25 10:00 02/12/25 08:55 550 MG Pantoprazole Sodium 40 mg DAILY IV 02/06/25 10:00 02/12/25 08:55 40 MG Diagnostic Test (Pha) 1 strip Q6HR 02/06/25 00:00 02/12/25 11:38 1 STRIP Insulin Human Regular Q6HR SC 02/06/25 00:00 02/12/25 12:00 3 UNITS Dextrose 50 ml UD PRN IV 02/05/25 22:15 Ondansetron HCl 4 mg Q4HP PRN IV 02/05/25 22:15 02/09/25 04:27 4 MG Acetaminophen 650 mg Q6HP PRN PO 02/05/25 22:15 02/12/25 03:43 650 MG Docusate Sodium 100 mg BID PO 02/06/25 10:00 02/12/25 08:54 100 MG Lactulose 30 ml Q6HR PO 02/06/25 18:00 02/12/25 11:55 30 ML Ceftriaxone Sodium/Dextrose 50 ml @ 50 mls/hr DAILY@0900 IV 02/07/25 09:00 02/12/25 09:17 50 MLS/HR Albuterol 2.5 mg Q6HPRN PRN NEB 02/08/25 00:45 02/11/25 09:44 2.5 MG Dextrose/Sodium Chloride 1,000 ml @ 75 mls/hr [id number] IV 02/08/25 12:00 02/12/25 00:47 75 MLS/HR Morphine Sulfate 2 mg Q4HPRN PRN IV 02/08/25 14:45 02/12/25 09:18 2 MG Laboratory Results Laboratory Tests 02/11/25 06:39 02/12/25 07:28 Chemistry Test 02/12/25 07:28 Albumin 3.1 g/dL (3.2-4.8) L Calcium Level 8.3 mg/dL (8.7-10.4) L Magnesium Level 2.9 mg/dL (1.6-2.6) H Total Protein 5.6 g/dL (5.7-8.2) L LFT Test 02/12/25 07:28 Alanine Aminotransferase (ALT) 80 U/L (7-40) H Alkaline Phosphatase 85 U/L (46-116) Aspartate Amino Transferase (AST) 44 U/L (13-40) H Total Bilirubin 2.4 mg/dL (0.2-1.0) H Urinalysis Test 02/07/25 01:30 Urine Color Yellow (Yellow) Urine Clarity Clear (Clear) Urine pH 5.0 (5.0-9.0) Urine Specific [place] 1.021 (1.001-1.035) Urine Protein 1+ (Negative) H Urine Ketones Trace (Negative) Urine Blood 2+ /uL (Negative) H Urine Nitrite Negative (Negative) Urine Bilirubin Negative (Negative) Urine Urobilinogen Normal mg/dL (Negative) Urine Leukocyte Esterase Negative /uL (Negative) Urine RBC 1 /hpf (0 - 3) Urine Microscopic WBC 3 /HPF (0-3) Urine Squamous Epithelial Cells Few /hpf (<5) Urine Bacteria None seen /hpf (None Seen) Urine Hyaline Casts Few /lpf (0 - 2) Urine Mucus Few (None Seen) Urine Yeast (Budding) Occasional /hpf (None Urine Creatinine 102.35 mg/dL (30.0-125.0) Urine Protein/Creatinine Ratio 0.61 Urine Sodium 15 mmol/L (40-220) L Urine Glucose 2+ mg/dL (Normal) H Urine Total Protein 62.1 mg/dL (1-14) H Microbiology Microbiology Date/Time Source Procedure Growth Status 02/05/25 20:41 Blood Blood Culture - Final NO GROWTH AFTER 5 DAYS OF INCUBATION. Complete Assessment/Plan Assessment/Plan Abdominal pain Rule out bowel obstructionsurgical Intractable nausea and vomiting Constipation Hepatic encephalopathy Liver cirrhosis Possible hepatorenal syndrome Acute kidney injury/chronic kidney disease Thrombocytopenia Leukocytosis Type 2 diabetes Hypertension Mixed hyperlipidemia Ascites Lactic acidosis Hyperkalemia Hyponatremia Moderate protein malnutrition Plan Keep NPO Surgical consult Continue lactulose Continue rifaximin GI consult Nephrology consult Paracentesis was attempted, not enough ascites fluids for the procedure to be done Hepatorenal syndrome? : Give albumin IV IV ceftriaxone and Flagyl empirically Full code Advance directives discussed for 20 minute 02/07/2025: Hyponatremia Hyperkalemia Acute kidney injury: Worsening, nephrology on board Metabolic acidosis Chronic kidney disease Liver cirrhosis Hepatic encephalopathy: Improved continue lactulose Abdominal distention and pain: Surgical consult pending 02/08/2025: Small bowel series today to rule out bowel obstruction GI is on board Nephrology is on board Kidney function is improving with a creatinine of 3.0 and carbon dioxide of 22 today Monitor closely 02/09/25: Abdominal pain, Vomiting SBO vs Ileus: NPO, NG tube to suction, surgical consult Urinary retention: Lopez IV fluids IV antibiotics 02/10/2025: Continue NG tube suction Surgical consult Continue NPO Lopez catheter IV fluids IV antibiotics Monitor closely 02/11/2025: Continue the current management with NG tube suction and NPO IV antibiotics IV fluids Awaiting surgical consult Monitor the patient closely The rest of the management will depend on the hospital course 02/12/2025: Continue the NG tube suction Surgical consult is pending I discussed the case with Dr. Luna who will see the patient today Kidney function has improved significantly, creatinine is down to 1.5 Liver cirrhosis Hepatic encephalopathy: Stable Plan discussed with: Patient My Orders Orders - JOVON LOPEZ MD Procedure Category Date Status Time * Surgical Consult CONS 5/12/25 Transmitted Date of Service: February 12, 2025 Billing Provider: JOVON LOPEZ MD Common Visit Codes: [id number] INP/OBS CARE(HIGH) JOVON LOPEZ MD February 12, 2025 13:57
--- NOTE | 2025-02-12 17:05 | DVHPN2 ---
Progress Note Date Seen: February 12, 2025 Has the PT tested + for MRSA If YES, has PT been informed?: No Medical Necessity Reason Pt with a Central, PICC or Fol: No Subjective Patient reports: No new complaints (Patient is hungry) Review of Systems: HEENT:Normal, CVS:Normal, RESPIRATORY:Normal, GI:Normal, :Normal, MSK:Normal, NEURO:Normal Objective vital signs Vital Sign Date Time Temp Pulse Resp B/P (MAP) Pulse Ox O2 Delivery O2 Flow Rate FiO2 02/12/25 14:40 77 18 133/79 02/12/25 13:00 97.8 94 97.8 02/12/25 10:22 Room Air* 0 21 Total Intake and Output 02/11/25 02/11/25 02/12/25 15:00 23:00 07:00 Intake Total 150 ml 350 ml 1300 ml Output Total 1450 ml 2550 ml Balance 150 ml -1100 ml -1250 ml medications Current Medications Medications Dose Ordered Sig/Tanya Route Start Time Stop Time Status Last Admin Dose Admin Metronidazole 100 ml @ 100 mls/hr Q8HR IV 02/06/25 06:00 02/12/25 13:01 100 MLS/HR Carvedilol 6.25 mg Q12HR PO 02/06/25 10:00 02/12/25 09:19 6.25 MG Rifaximin 550 mg BID PO 02/06/25 10:00 02/12/25 08:55 550 MG Pantoprazole Sodium 40 mg DAILY IV 02/06/25 10:00 02/12/25 08:55 40 MG Diagnostic Test (Pha) 1 strip Q6HR 02/06/25 00:00 02/12/25 11:38 1 STRIP Insulin Human Regular Q6HR SC 02/06/25 00:00 02/12/25 12:00 3 UNITS Dextrose 50 ml UD PRN IV 02/05/25 22:15 Ondansetron HCl 4 mg Q4HP PRN IV 02/05/25 22:15 02/09/25 04:27 4 MG Acetaminophen 650 mg Q6HP PRN PO 02/05/25 22:15 02/12/25 03:43 650 MG Docusate Sodium 100 mg BID PO 02/06/25 10:00 02/12/25 08:54 100 MG Lactulose 30 ml Q6HR PO 02/06/25 18:00 02/12/25 11:55 30 ML Ceftriaxone Sodium/Dextrose 50 ml @ 50 mls/hr DAILY@0900 IV 02/07/25 09:00 02/12/25 09:17 50 MLS/HR Albuterol 2.5 mg Q6HPRN PRN NEB 02/08/25 00:45 02/11/25 09:44 2.5 MG Dextrose/Sodium Chloride 1,000 ml @ 75 mls/hr [id number] IV 02/08/25 12:00 02/12/25 00:47 75 MLS/HR Morphine Sulfate 2 mg Q4HPRN PRN IV 02/08/25 14:45 02/12/25 14:40 2 MG Examination: GENERAL:Normal, HEENT:Normal, NECK:Normal, LUNGS:Normal, CVS:Normal, ABDOMEN:Normal, ABDOMEN:Abnormal (Abdomen obese with a NG tube in place significant drainage from NG tube however the patient has been drinking water via the picture), MSK:Normal, SKIN:Normal, NEURO:Normal, :Normal laboratory and microbiology Laboratory Tests 02/12/25 07:28 02/11/25 06:39 Test 02/12/25 07:28 Range/Units Serum Glucose 164 H 74-106 mg/dL Microbiology Date/Time Source Procedure Growth Status 02/05/25 20:41 Blood Blood Culture - Final NO GROWTH AFTER 5 DAYS OF INCUBATION. Complete Problem List/Assessment/Plan Problems(with codes): (1) Ileus Problem List/Assessment/Plan Patient with probable ileus with significant comorbidities Continue with NG tube Strict eyes and nose Strict NPO Plan discussed with: Patient Dietary Evaluation Review Comments: 1) [facility] + Renal specific 60gm as medically feasible 2) Refer to CDE on DC 3) Continue current plan of care Expected Outcomes/Goals: To meet 75% estimated needs fu 2-3 days CHANCE BUSTOS Jr., MD February 12, 2025 17:05
--- NOTE | 2025-02-12 20:54 | DVHPN2 ---
Progress Note - Dictate Date Seen: February 12, 2025 Has the PT tested + for MRSA If YES, has PT been informed?: No Medical Necessity Reason Pt with a Central, PICC or Fol: No Subjective 69 y o male with recurrent admissions due to hepatic encephalopathy secondary to alcoholic liver cirrhosis, hyperammonemia, history of 2 [place] 30 years back, CKD 3B, diabetes mellitus type 2, heart failure with preserved ejection fraction at 60%, colonoscopy status post polypectomy in 2019, paroxysmal atrial fibrillation, splenomegaly, UTI, pneumonia status post intubation in 2018, hypertension and hyperlipidemia 02/07/25 : patient has moderate abdominal distention but at this time denies any abdominal discomfort, there was no nausea vomiting or GI bleeding; Abdominal ultrasound did not show enough ascites for paracentesis KUB shows moderate amount of small bowel distention SBFT c/w ileus 02/11/25: Patient is still having moderate amount of output via the NG tube about 1 L however the patient has been drinking moderate amount of ice chips and melted water. He has not had a bowel movements today but there were three or four recorded bowel movements on 02/09/2025. Patient states he is very hungry and he has nothing in his intestines There was no abdominal pain no nausea or vomiting 02/12/25 Patient did not tolerate clamping is NG-tube When the NG tube was reconnected to canister of over a L of fluid was aspirated No bowel movement recorded vital signs Vital Sign Date Time Temp Pulse Resp B/P (MAP) Pulse Ox O2 Delivery O2 Flow Rate FiO2 02/12/25 18:45 65 17 130/79 02/12/25 17:00 98.0 93 98.0 02/12/25 10:22 Room Air* 0 21 Total Intake and Output 02/11/25 02/11/25 02/12/25 15:00 23:00 07:00 Intake Total 150 ml 350 ml 1300 ml Output Total 1450 ml 2550 ml Balance 150 ml -1100 ml -1250 ml medications Current Medications Medications Dose Ordered Sig/Tanya Route Start Time Stop Time Status Last Admin Dose Admin Metronidazole 100 ml @ 100 mls/hr Q8HR IV 02/06/25 06:00 02/12/25 13:01 100 MLS/HR Carvedilol 6.25 mg Q12HR PO 02/06/25 10:00 02/12/25 09:19 6.25 MG Rifaximin 550 mg BID PO 02/06/25 10:00 02/12/25 08:55 550 MG Pantoprazole Sodium 40 mg DAILY IV 02/06/25 10:00 02/12/25 08:55 40 MG Diagnostic Test (Pha) 1 strip Q6HR 02/06/25 00:00 02/12/25 17:44 1 STRIP Insulin Human Regular Q6HR SC 02/06/25 00:00 02/12/25 18:11 3 UNITS Dextrose 50 ml UD PRN IV 02/05/25 22:15 Ondansetron HCl 4 mg Q4HP PRN IV 02/05/25 22:15 02/09/25 04:27 4 MG Acetaminophen 650 mg Q6HP PRN PO 02/05/25 22:15 02/12/25 03:43 650 MG Docusate Sodium 100 mg BID PO 02/06/25 10:00 02/12/25 08:54 100 MG Lactulose 30 ml Q6HR PO 02/06/25 18:00 02/12/25 18:10 30 ML Ceftriaxone Sodium/Dextrose 50 ml @ 50 mls/hr DAILY@0900 IV 02/07/25 09:00 02/12/25 09:17 50 MLS/HR Albuterol 2.5 mg Q6HPRN PRN NEB 02/08/25 00:45 02/11/25 09:44 2.5 MG Dextrose/Sodium Chloride 1,000 ml @ 75 mls/hr [id number] IV 02/08/25 12:00 02/12/25 18:12 75 MLS/HR Morphine Sulfate 2 mg Q4HPRN PRN IV 02/08/25 14:45 02/12/25 18:45 2 MG objective General: Well-built, obese, slight scleral icterus, mucosae are moist Cardiovascular: Regular S1 and S2 rrr trace bilateral pedal edema Respiratory: Normal B/L air entry on room air. Clear lung sounds on auscultation Abdomen: Soft, Distended, hypoactive bowel sounds, no rebound tenderness, no organomegaly, no masses Neurological: No motor, no sensitive deficits, normal speech. Pupils are isocoric and reactive. Psych/Mental Status: A/Ox3 laboratory and microbiology Laboratory Tests 02/12/25 07:28 02/11/25 06:39 Test 02/12/25 07:28 Range/Units Serum Glucose 164 H 74-106 mg/dL Problems(with codes): (1) Ileus (2) Cirrhosis of liver (3) GERD (gastroesophageal reflux disease) (4) UTI (urinary tract infection) (5) Lactic acidosis (6) Hyperkalemia (7) Hepatic encephalopathy (8) Abdominal pain Prognosis Plan Surgical follow up appreciated Continue NG tube to low intermittent suction Continue NPO status Continue IV Reglan physical therapy and ambulate patient Dietary Evaluation Review Comments: 1) Advance to [facility] 60gm + Renal specific 60gm as medically feasible 2) Refer to CDE on DC 3) Continue current plan of care Expected Outcomes/Goals: To meet 75% estimated needs fu 2-3 days Plan discussed with: Other (Nurse) ZENAIDA PENA MD February 12, 2025 20:54
[2025-02-13] VITALS (8 sets, daily range): BP systolic 119–143; BP diastolic 70–79; PULSE 85–95; RESP 18–20; TEMP 97.8–98; O2SAT 92–95
[2025-02-13 07:19] LABS: Basophils # (auto) 0 10 ^3/uL (0-0.2); Basophils % (auto) 0.2 % (0.0-2.0); Eosinophils # (auto) 0.1 10 ^3/uL (0-0.8); Hematocrit 45.1 % (41.0-53.0); Hemoglobin 14.9 g/dL (13.5-17.5); Lymphocytes # (auto) 0.8 10 ^3/uL (0.4-5.4); Lymphocytes % (auto) 6.3 % (10.0-50.0); Mean Corpuscular Hemoglobin 32.6 pg (28.0-32.0); Mean Corpuscular Volume 98.7 fL (80.0-100.0); Neutrophils % (auto) 84.5 % (37.0-80.0); Nucleated Red Blood Cells % 0.5 %; Platelet Count (auto) 174 10^3/uL (140-450); Red Blood Cells 4.57 10^6/uL (4.5-5.90); Red Cell Distribution Width 19.7 % (11.8-14.3)
[2025-02-13 07:22] LABS: Alkaline Phosphatase 82 U/L (46-116); Anion Gap 11 (5-15); Aspartate Aminotransferase 35 U/L (13-40); BUN/Creatinine Ratio 28.9 (10.0-20.0)
[2025-02-13 07:24] LABS: Alanine Aminotransferase 64 U/L (7-40); Albumin 2.9 g/dL (3.2-4.8); Bilirubin, Total 2.9 mg/dL (0.2-1.0); Blood Urea Nitrogen 57 mg/dL (9-23); Calcium 8.2 mg/dL (8.7-10.4); Carbon Dioxide 20 mmol/L (20-31); Chloride 115 mmol/L (98-107); Glucose 190 mg/dL (74-106); Magnesium 2.7 mg/dL (1.6-2.6); Potassium 5.2 mmol/L (3.5-5.1); Sodium 146 mmol/L (136-145); Total Protein 5.3 g/dL (5.7-8.2)
--- NOTE | 2025-02-13 11:48 | DVHPN2 ---
Subjective No new complaints Soft abdomen Still on NG tube suction Changes from previous H/P or p: Changes Objective Vitals Vital Signs Date Time Temp Pulse Resp B/P (MAP) Pulse Ox O2 Delivery O2 Flow Rate FiO2 02/13/25 09:52 92 Room Air 0.0 02/13/25 09:52 86 18 143/70 02/13/25 09:52 21 02/13/25 09:00 97.9 97.9 Intake/Output Intake and Output 02/13/25 07:00 Intake Total 950 ml Output Total 4175 ml Balance -3225 ml Intake Oral 0 ml IV Total 950 ml Output Urine Total 1175 ml Gastric Drainage Total 3000 ml General Appearance: Alert, Oriented X3, Cooperative, No acute distress Lungs: Clear to auscultation Cardiovascular: Regular rate, Normal S1, Normal S2 Abdomen: Normal bowel sounds, Other (Distended and generalized tenderness) Extremities: Other (1+ edema bilaterally in the lower extremities) Medications Current Medications Medications Dose Ordered Sig/Tanya Route Start Time Stop Time Status Last Admin Dose Admin Metronidazole 100 ml @ 100 mls/hr Q8HR IV 02/06/25 06:00 02/13/25 05:21 100 MLS/HR Carvedilol 6.25 mg Q12HR PO 02/06/25 10:00 02/13/25 09:51 6.25 MG Rifaximin 550 mg BID PO 02/06/25 10:00 02/13/25 09:50 550 MG Pantoprazole Sodium 40 mg DAILY IV 02/06/25 10:00 02/13/25 09:51 40 MG Diagnostic Test (Pha) 1 strip Q6HR 02/06/25 00:00 02/13/25 05:33 1 STRIP Insulin Human Regular Q6HR SC 02/06/25 00:00 02/13/25 05:28 2 UNITS Dextrose 50 ml UD PRN IV 02/05/25 22:15 Ondansetron HCl 4 mg Q4HP PRN IV 02/05/25 22:15 02/09/25 04:27 4 MG Acetaminophen 650 mg Q6HP PRN PO 02/05/25 22:15 02/12/25 03:43 650 MG Docusate Sodium 100 mg BID PO 02/06/25 10:00 02/13/25 09:50 100 MG Lactulose 30 ml Q6HR PO 02/06/25 18:00 02/13/25 05:21 30 ML Ceftriaxone Sodium/Dextrose 50 ml @ 50 mls/hr DAILY@0900 IV 02/07/25 09:00 02/13/25 08:30 50 MLS/HR Dextrose/Sodium Chloride 1,000 ml @ 75 mls/hr [id number] IV 02/08/25 12:00 02/12/25 18:12 75 MLS/HR Morphine Sulfate 2 mg Q4HPRN PRN IV 02/08/25 14:45 02/13/25 09:52 2 MG Laboratory Results Laboratory Tests 02/13/25 06:25 Chemistry Test 02/13/25 06:25 Albumin 2.9 g/dL (3.2-4.8) L Calcium Level 8.2 mg/dL (8.7-10.4) L Magnesium Level 2.7 mg/dL (1.6-2.6) H Total Protein 5.3 g/dL (5.7-8.2) L LFT Test 02/13/25 06:25 Alanine Aminotransferase (ALT) 64 U/L (7-40) H Alkaline Phosphatase 82 U/L (46-116) Aspartate Amino Transferase (AST) 35 U/L (13-40) Total Bilirubin 2.9 mg/dL (0.2-1.0) H Urinalysis Test 02/07/25 01:30 Urine Color Yellow (Yellow) Urine Clarity Clear (Clear) Urine pH 5.0 (5.0-9.0) Urine Specific [place] 1.021 (1.001-1.035) Urine Protein 1+ (Negative) H Urine Ketones Trace (Negative) Urine Blood 2+ /uL (Negative) H Urine Nitrite Negative (Negative) Urine Bilirubin Negative (Negative) Urine Urobilinogen Normal mg/dL (Negative) Urine Leukocyte Esterase Negative /uL (Negative) Urine RBC 1 /hpf (0 - 3) Urine Microscopic WBC 3 /HPF (0-3) Urine Squamous Epithelial Cells Few /hpf (<5) Urine Bacteria None seen /hpf (None Seen) Urine Hyaline Casts Few /lpf (0 - 2) Urine Mucus Few (None Seen) Urine Yeast (Budding) Occasional /hpf (None Urine Creatinine 102.35 mg/dL (30.0-125.0) Urine Protein/Creatinine Ratio 0.61 Urine Sodium 15 mmol/L (40-220) L Urine Glucose 2+ mg/dL (Normal) H Urine Total Protein 62.1 mg/dL (1-14) H Microbiology Microbiology Date/Time Source Procedure Growth Status 02/05/25 20:41 Blood Blood Culture - Final NO GROWTH AFTER 5 DAYS OF INCUBATION. Complete Assessment/Plan Assessment/Plan Abdominal pain Rule out bowel obstructionsurgical Intractable nausea and vomiting Constipation Hepatic encephalopathy Liver cirrhosis Possible hepatorenal syndrome Acute kidney injury/chronic kidney disease Thrombocytopenia Leukocytosis Type 2 diabetes Hypertension Mixed hyperlipidemia Ascites Lactic acidosis Hyperkalemia Hyponatremia Moderate protein malnutrition Plan Keep NPO Surgical consult Continue lactulose Continue rifaximin GI consult Nephrology consult Paracentesis was attempted, not enough ascites fluids for the procedure to be done Hepatorenal syndrome? : Give albumin IV IV ceftriaxone and Flagyl empirically Full code Advance directives discussed for 20 minute 02/07/2025: Hyponatremia Hyperkalemia Acute kidney injury: Worsening, nephrology on board Metabolic acidosis Chronic kidney disease Liver cirrhosis Hepatic encephalopathy: Improved continue lactulose Abdominal distention and pain: Surgical consult pending 02/08/2025: Small bowel series today to rule out bowel obstruction GI is on board Nephrology is on board Kidney function is improving with a creatinine of 3.0 and carbon dioxide of 22 today Monitor closely 02/09/25: Abdominal pain, Vomiting SBO vs Ileus: NPO, NG tube to suction, surgical consult Urinary retention: Lopez IV fluids IV antibiotics 02/10/2025: Continue NG tube suction Surgical consult Continue NPO Lopez catheter IV fluids IV antibiotics Monitor closely 02/11/2025: Continue the current management with NG tube suction and NPO IV antibiotics IV fluids Awaiting surgical consult Monitor the patient closely The rest of the management will depend on the hospital course 02/12/2025: Continue the NG tube suction Surgical consult is pending I discussed the case with Dr. Luna who will see the patient today Kidney function has improved significantly, creatinine is down to 1.5 Liver cirrhosis Hepatic encephalopathy: Stable 02/13/2025: Continue NG tube suction Surgical Service Dr. Luna is following IV fluids Monitor the kidney function Hepatic encephalopathy: Alert and oriented, monitor Monitor closely JANET Hypernatremia Hyperkalemia Plan discussed with: Patient My Orders Orders - JOVON LOPEZ MD Procedure Category Date Status Time * Surgical Consult CONS 02/12/25 Transmitted 13:58 Date of Service: February 13, 2025 Billing Provider: JOVON LOPEZ MD Common Visit Codes: [id number] INP/OBS CARE(HIGH) JOVON LOPEZ MD February 13, 2025 11:48
--- NOTE | 2025-02-13 22:15 | DVHPN2 ---
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, hyperammonemia, history of 2 [place] 30 years back, CKD 3B, diabetes mellitus type 2, heart failure with preserved ejection fraction at 60%, colonoscopy status post polypectomy in 2019, paroxysmal atrial fibrillation, splenomegaly, UTI, pneumonia status post intubation in 2018, hypertension and hyperlipidemia 02/07/25 : patient has moderate abdominal distention but at this time denies any abdominal discomfort, there was no nausea vomiting or GI bleeding; Abdominal ultrasound did not show enough ascites for paracentesis KUB shows moderate amount of small bowel distention SBFT c/w ileus 02/11/25: Patient is still having moderate amount of output via the NG tube about 1 L however the patient has been drinking moderate amount of ice chips and melted water. He has not had a bowel movements today but there were three or four recorded bowel movements on 02/09/2025. Patient states he is very hungry and he has nothing in his intestines There was no abdominal pain no nausea or vomiting 02/12/25 Patient did not tolerate clamping is NG-tube When the NG tube was reconnected to canister of over a L of fluid was aspirated No bowel movement recorded 02/13/25 Patient is out of bed to chair Continues to have moderate NG tube output, about 850 was drain this morning and since then he has had another 450 Patient has been made strict NPO by surgical consult but patient is asking to drink something vital signs Vital Sign Date Time Temp Pulse Resp B/P (MAP) Pulse Ox O2 Delivery O2 Flow Rate FiO2 02/13/25 21:37 92 137/84 02/13/25 20:15 19 92 Room Air* 0 21 02/13/25 16:54 98.0 98.0 Total Intake and Output 02/12/25 02/12/25 02/13/25 15:00 23:00 07:00 Intake Total 150 ml 0 ml 800 ml Output Total 1750 ml 1250 ml 1175 ml Balance -1600 ml -1250 ml -375 ml medications Current Medications Medications Dose Ordered Sig/Tanya Route Start Time Stop Time Status Last Admin Dose Admin Metronidazole 100 ml @ 100 mls/hr Q8HR IV 02/06/25 06:00 02/13/25 21:36 100 MLS/HR Carvedilol 6.25 mg Q12HR PO 02/06/25 10:00 02/13/25 21:37 6.25 MG Rifaximin 550 mg BID PO 02/06/25 10:00 02/13/25 21:36 550 MG Pantoprazole Sodium 40 mg DAILY IV 02/06/25 10:00 02/13/25 09:51 40 MG Diagnostic Test (Pha) 1 strip Q6HR 02/06/25 00:00 02/13/25 17:52 1 STRIP Insulin Human Regular Q6HR SC 02/06/25 00:00 02/13/25 18:17 3 UNITS Dextrose 50 ml UD PRN IV 02/05/25 22:15 Ondansetron HCl 4 mg Q4HP PRN IV 02/05/25 22:15 02/09/25 04:27 4 MG Acetaminophen 650 mg Q6HP PRN PO 02/05/25 22:15 02/12/25 03:43 650 MG Docusate Sodium 100 mg BID PO 02/06/25 10:00 02/13/25 21:36 100 MG Lactulose 30 ml Q6HR PO 02/06/25 18:00 02/13/25 17:50 30 ML Ceftriaxone Sodium/Dextrose 50 ml @ 50 mls/hr DAILY@0900 IV 02/07/25 09:00 02/13/25 08:30 50 MLS/HR Dextrose/Sodium Chloride 1,000 ml @ 75 mls/hr [id number] IV 02/08/25 12:00 02/13/25 12:49 75 MLS/HR Morphine Sulfate 2 mg Q4HPRN PRN IV 02/08/25 14:45 02/13/25 17:52 2 MG objective General: Well-built, obese, slight scleral icterus, mucosae are moist Cardiovascular: Regular S1 and S2 rrr trace bilateral pedal edema Respiratory: Normal B/L air entry on room air. Clear lung sounds on auscultation Abdomen: Soft, Distended, hypoactive bowel sounds, no rebound tenderness, no organomegaly, no masses Neurological: No motor, no sensitive deficits, normal speech. Pupils are isocoric and reactive. Psych/Mental Status: A/Ox3 laboratory and microbiology Laboratory Tests 02/13/25 06:25 Test 02/13/25 06:25 Range/Units Serum Glucose 190 H 74-106 mg/dL Problems(with codes): (1) Ileus (2) Cirrhosis of liver (3) GERD (gastroesophageal reflux disease) (4) UTI (urinary tract infection) (5) Lactic acidosis (6) Hyperkalemia (7) Hepatic encephalopathy (8) Abdominal pain Prognosis Plan Keep NPO NG tube to low intermittent suction Repeat KUB tonight Possible repeat Gastrografin small-bowel series tomorrow to see if there is any further opening up of his bowel activity Dietary Evaluation Review Comments: 1) Advance to [facility] 60gm + Renal specific 60gm as medically feasible 2) Refer to CDE on DC 3) Continue current plan of care Expected Outcomes/Goals: To meet 75% estimated needs fu 2-3 days Plan discussed with: Patient, Other (Nurse and Dr Luna) ZENAIDA PENA MD February 13, 2025 22:15
[2025-02-14] VITALS (8 sets, daily range): BP systolic 114–138; BP diastolic 65–79; PULSE 76–89; RESP 15–19; TEMP 97.3–97.9; O2SAT 92–95
[2025-02-14 07:32] LABS: Basophils # (auto) 0 10 ^3/uL (0-0.2); Basophils % (auto) 0.2 % (0.0-2.0); Eosinophils # (auto) 0 10 ^3/uL (0-0.8); Eosinophils % (auto) 0.1 % (0.0-7.0); Hematocrit 44.2 % (41.0-53.0); Hemoglobin 14.5 g/dL (13.5-17.5); Mean Corpuscular Hemoglobin 32.2 pg (28.0-32.0); Mean Corpuscular Hgb Conc. 32.7 g/dL (32.0-36.0); Mean Corpuscular Volume 98.6 fL (80.0-100.0); Monocytes # (auto) 1.1 10 ^3/uL (0-1.3); Monocytes % (auto) 6.9 % (0.0-12.0); Neutrophils % (auto) 86.8 % (37.0-80.0); Nucleated Red Blood Cells % 0.4 %; Platelet Count (auto) 159 10^3/uL (140-450); Red Blood Cells 4.49 10^6/uL (4.5-5.90); Red Cell Distribution Width 20.4 % (11.8-14.3); White Blood Cell 16.1 10^3/uL (4.4-10.8)
[2025-02-14 07:54] LABS: Alkaline Phosphatase 87 U/L (46-116); Anion Gap 12 (5-15); Aspartate Aminotransferase 29 U/L (13-40); BUN/Creatinine Ratio 26.2 (10.0-20.0)
[2025-02-14 07:57] LABS: Alanine Aminotransferase 51 U/L (7-40); Albumin 2.7 g/dL (3.2-4.8); Bilirubin, Total 3.4 mg/dL (0.2-1.0); Calcium 8.4 mg/dL (8.7-10.4); Carbon Dioxide 19 mmol/L (20-31); Chloride 116 mmol/L (98-107); Glucose 182 mg/dL (74-106); Magnesium 2.9 mg/dL (1.6-2.6); Potassium 5.4 mmol/L (3.5-5.1); Sodium 147 mmol/L (136-145); Total Protein 5.2 g/dL (5.7-8.2)
[2025-02-14 07:59] LABS: Blood Urea Nitrogen 81 mg/dL (9-23)
[2025-02-14] MEDS: GASTROGRAFIN 120 ML SOL ONE (11:30)
--- NOTE | 2025-02-14 17:05 | DVHPN2 ---
Subjective Still complaining of abdominal pain and distention Still on NG tube suction He just had a repeat small bowel series today, the result is pending Changes from previous H/P or p: Changes Objective Vitals Vital Signs Date Time Temp Pulse Resp B/P (MAP) Pulse Ox O2 Delivery O2 Flow Rate FiO2 02/14/25 16:20 108 19 111/76 02/14/25 13:00 97.6 93 97.6 02/14/25 10:00 Room Air* 0 21 Intake/Output Intake and Output 02/14/25 07:00 Intake Total 1250 ml Output Total 1000 ml Balance 250 ml Intake Oral 0 ml IV Total 1250 ml Output Urine Total 150 ml Gastric Drainage Total 850 ml General Appearance: Alert, Oriented X3, Cooperative, No acute distress Lungs: Clear to auscultation Cardiovascular: Regular rate, Normal S1, Normal S2 Abdomen: Normal bowel sounds, Other (Distended and generalized tenderness) Extremities: Other (1+ edema bilaterally in the lower extremities) Medications Current Medications Medications Dose Ordered Sig/Tanya Route Start Time Stop Time Status Last Admin Dose Admin Metronidazole 100 ml @ 100 mls/hr Q8HR IV 02/06/25 06:00 02/14/25 15:07 100 MLS/HR Carvedilol 6.25 mg Q12HR PO 02/06/25 10:00 02/14/25 08:54 6.25 MG Rifaximin 550 mg BID PO 02/06/25 10:00 02/14/25 08:54 550 MG Pantoprazole Sodium 40 mg DAILY IV 02/06/25 10:00 02/14/25 08:55 40 MG Diagnostic Test (Pha) 1 strip Q6HR 02/06/25 00:00 02/14/25 11:30 1 STRIP Insulin Human Regular Q6HR SC 02/06/25 00:00 02/14/25 11:57 3 UNITS Dextrose 50 ml UD PRN IV 02/05/25 22:15 Ondansetron HCl 4 mg Q4HP PRN IV 02/05/25 22:15 02/09/25 04:27 4 MG Acetaminophen 650 mg Q6HP PRN PO 02/05/25 22:15 02/12/25 03:43 650 MG Docusate Sodium 100 mg BID PO 02/06/25 10:00 02/14/25 08:54 100 MG Lactulose 30 ml Q6HR PO 02/06/25 18:00 02/14/25 05:30 30 ML Ceftriaxone Sodium/Dextrose 50 ml @ 50 mls/hr DAILY@0900 IV 02/07/25 09:00 02/14/25 07:56 50 MLS/HR Dextrose/Sodium Chloride 1,000 ml @ 75 mls/hr [id number] IV 02/08/25 12:00 02/14/25 06:56 75 MLS/HR Morphine Sulfate 2 mg Q4HPRN PRN IV 02/08/25 14:45 02/14/25 15:08 2 MG Laboratory Results Laboratory Tests 02/14/25 06:23 Chemistry Test 02/14/25 06:23 Albumin 2.7 g/dL (3.2-4.8) L Calcium Level 8.4 mg/dL (8.7-10.4) L Magnesium Level 2.9 mg/dL (1.6-2.6) H Total Protein 5.2 g/dL (5.7-8.2) L LFT Test 02/14/25 06:23 Alanine Aminotransferase (ALT) 51 U/L (7-40) H Alkaline Phosphatase 87 U/L (46-116) Aspartate Amino Transferase (AST) 29 U/L (13-40) Total Bilirubin 3.4 mg/dL (0.2-1.0) H Urinalysis Test 02/07/25 01:30 Urine Color Yellow (Yellow) Urine Clarity Clear (Clear) Urine pH 5.0 (5.0-9.0) Urine Specific [place] 1.021 (1.001-1.035) Urine Protein 1+ (Negative) H Urine Ketones Trace (Negative) Urine Blood 2+ /uL (Negative) H Urine Nitrite Negative (Negative) Urine Bilirubin Negative (Negative) Urine Urobilinogen Normal mg/dL (Negative) Urine Leukocyte Esterase Negative /uL (Negative) Urine RBC 1 /hpf (0 - 3) Urine Microscopic WBC 3 /HPF (0-3) Urine Squamous Epithelial Cells Few /hpf (<5) Urine Bacteria None seen /hpf (None Seen) Urine Hyaline Casts Few /lpf (0 - 2) Urine Mucus Few (None Seen) Urine Yeast (Budding) Occasional /hpf (None Urine Creatinine 102.35 mg/dL (30.0-125.0) Urine Protein/Creatinine Ratio 0.61 Urine Sodium 15 mmol/L (40-220) L Urine Glucose 2+ mg/dL (Normal) H Urine Total Protein 62.1 mg/dL (1-14) H Microbiology Microbiology Date/Time Source Procedure Growth Status 02/05/25 20:41 Blood Blood Culture - Final NO GROWTH AFTER 5 DAYS OF INCUBATION. Complete Assessment/Plan Assessment/Plan Abdominal pain Rule out bowel obstructionsurgical Intractable nausea and vomiting Constipation Hepatic encephalopathy Liver cirrhosis Possible hepatorenal syndrome Acute kidney injury/chronic kidney disease Thrombocytopenia Leukocytosis Type 2 diabetes Hypertension Mixed hyperlipidemia Ascites Lactic acidosis Hyperkalemia Hyponatremia Moderate protein malnutrition Plan Keep NPO Surgical consult Continue lactulose Continue rifaximin GI consult Nephrology consult Paracentesis was attempted, not enough ascites fluids for the procedure to be done Hepatorenal syndrome? : Give albumin IV IV ceftriaxone and Flagyl empirically Full code Advance directives discussed for 20 minute 02/07/2025: Hyponatremia Hyperkalemia Acute kidney injury: Worsening, nephrology on board Metabolic acidosis Chronic kidney disease Liver cirrhosis Hepatic encephalopathy: Improved continue lactulose Abdominal distention and pain: Surgical consult pending 02/08/2025: Small bowel series today to rule out bowel obstruction GI is on board Nephrology is on board Kidney function is improving with a creatinine of 3.0 and carbon dioxide of 22 today Monitor closely 02/09/25: Abdominal pain, Vomiting SBO vs Ileus: NPO, NG tube to suction, surgical consult Urinary retention: Lopez IV fluids IV antibiotics 02/10/2025: Continue NG tube suction Surgical consult Continue NPO Lopez catheter IV fluids IV antibiotics Monitor closely 02/11/2025: Continue the current management with NG tube suction and NPO IV antibiotics IV fluids Awaiting surgical consult Monitor the patient closely The rest of the management will depend on the hospital course 02/12/2025: Continue the NG tube suction Surgical consult is pending I discussed the case with Dr. Luna who will see the patient today Kidney function has improved significantly, creatinine is down to 1.5 Liver cirrhosis Hepatic encephalopathy: Stable 02/13/2025: Continue NG tube suction Surgical Service Dr. Luna is following IV fluids Monitor the kidney function Hepatic encephalopathy: Alert and oriented, monitor Monitor closely JANET Hypernatremia Hyperkalemia 02/14/2025: Abdominal pain and distention, small bowel obstruction versus ileus: Small bowel series done today, pending Consult general surgery, Dr. Lesia Herzog Continue NPO and NG tube suction for now Continue IV fluids Acute kidney injury: Liver cirrhosis Hypernatremia Hyperkalemia Plan discussed with: Patient My Orders Orders - JOVON LOPEZ MD Procedure Category Date Status Time * Surgical Consult CONS 02/14/25 Verified Date of Service: February 14, 2025 Billing Provider: JOVON LOPEZ MD Common Visit Codes: [id number] INP/OBS CARE(HIGH) JOVON LOPEZ MD February 14, 2025 17:05
--- NOTE | 2025-02-14 18:55 | DVH ---
Procedure: XY SMALL BOWEL SERIES-W GASTROGRA Reason for study/Clinical History: r/o obstruction Comparison Study: XY SMALL BOWEL SERIES-W GASTROGRA on DOS: 02/08/25 Technique: Single contrast small bowel series performed. FINDINGS/IMPRESSION: Initial application consultant view of the abdomen and pelvis appears demonstrates no acute process. Contrast only noted in the stomach none in the small bowel. Persistent gaseous distention of the smal l bowel. Questionable gastroparesis Enteric tube in the stomach
--- NOTE | 2025-02-14 21:16 | DVHINCON2 ---
Date of service: February 14, 2025 Family History: Alcoholism G8 FATHER, Onset:Unknown Cirrhosis of liver G8 FATHER Colon cancer G8 FATHER FH: heart attack FH: liver cancer FH: stomach cancer Hepatic cirrhosis G8 FATHER, Onset:Unknown Hypercholesterolemia G8 MOTHER Hypertension G8 MOTHER Ischemic heart disease G8 MOTHER Allergies: Coded Allergies: No Known Drug Allergy (Verified Allergy, Unknown, 05/04/19) Home Meds Active Scripts Ciprofloxacin Hcl (Cipro) 500 Mg Tab, 1 TAB PO BID for 7 Days, #14 TAB Prov:RICHARD PIERRE MD 02/04/25 Metronidazole (Flagyl) 500 Mg Tab, 1 TAB PO TID for 7 Days, #21 TAB Prov:RICHARD PIERRE MD 02/04/25 Dicyclomine Hcl (BENTYL CAPSULE) 10 Mg Cp, 2 CAP PO Q6HP PRN, #60 CAP 11 Refills Prov:RICHARD PIERRE MD 02/04/25 Tramadol Hcl (Tramadol Hcl) 50 Mg Tab, 50 MG PO Q6HP PRN, #20 TAB Prov:RICHARD PIERRE MD 02/04/25 Lactulose (Constulose) 10 Gm/15 Ml Candis, 30 ML PO Q6H for 30 Days, #3600 ML Prov:EMERALD ALCANTAR MD 07/26/24 Reported Medications Spironolactone (Spironolactone) 25 Mg Tab, 1 TAB PO DAILY for 90 Days, #90 02/07/25 Pantoprazole Sodium Sesquihydr (Pantoprazole Sodium) 40 Mg Tab, 1 TAB PO BID for 30 Days, #60 02/07/25 Fluoxetine HCl (Fluoxetine HCl) 20 Mg Cap, 1 CAP PO QAM for 90 Days, #90 02/07/25 Ergocalciferol (Vitamin D) 50,000 Unit Cap, 1 CAP PO QWEEKLY for 28 Days, #4 02/07/25 Fexofenadine HCl (Fexofenadine Hydrochlorid) 180 Mg Tab, 1 TAB PO DAILY for 30 Days, #30 02/07/25 Rifaximin (Xifaxan) 550 Mg Tab, 1 TAB PO BID for 30 Days, #60 02/07/25 Empagliflozin (Jardiance) 25 Mg Tab, 1 TAB PO DAILY for 30 Days, #30 02/07/25 Allopurinol (Allopurinol) 100 Mg Tab, 1 TAB PO DAILY for 30 Days, #30 02/07/25 Glipizide (Glipizide) 10 Mg Tab, 1 TAB PO BID for 90 Days, #180 02/07/25 Insulin Lispro (Humalog Kwikpen) 100 Unit/Ml Inj, 100 UNIT SC, INJ 07/20/24 Furosemide (Furosemide) 40 Mg Tab, 1 TAB PO DAILY for 30 Days, #30 07/20/24 Insulin Glargine (Lantus Solostar) 100 Unit/Ml Inj, 35 UNIT SC BID 03/06/24 Atorvastatin Calcium (Lipitor) 40 Mg Tab, 1 TAB PO DAILY for 90 Days, #90 03/06/24 Dapagliflozin Propanediol (Farxiga) 10 Mg Tab, 10 MG PO DAILY, TAB 03/05/24 Amlodipine Besylate (Amlodipine Besylate) 10 Mg Tab, 1 TAB PO DAILY 03/05/24 Lisinopril (Lisinopril) 20 Mg Tab, 1 TAB PO DAILY for 90 Days, #90 03/05/24 Carvedilol (Carvedilol) 6.25 Mg Tab, 1 TAB PO BID for 90 Days, #180 03/05/24 Vital Signs Vital Signs Date Time Temp Pulse Resp B/P (MAP) Pulse Ox O2 Delivery O2 Flow Rate FiO2 02/14/25 17:00 97.8 76 18 114/67 (83) 94 97.8 02/14/25 10:00 Room Air* 0 21 Labs/Diagnostic Data Labs Test 02/14/25 17:43 02/14/25 06:23 02/10/25 05:58 02/09/25 11:19 Range/Units POC Glucose 192 H 70-106 mg/dl White Blood Count 16.1 H 4.4-10.8 10^3/uL Red Blood Count 4.49 L 4.5-5.90 10^6/uL Hemoglobin 14.5 13.5-17.5 g/dL Hematocrit 44.2 41.0-53.0 % Mean Corpuscular Volume 98.6 80.0-100.0 fL Mean Corpuscular Hemoglobin 32.2 H 28.0-32.0 pg Mean Corpuscular Hemoglobin Concent 32.7 32.0-36.0 g/dL Red Cell Distribution Width 20.4 H 11.8-14.3 % Platelet Count 159 140-450 10^3/uL Mean Platelet Volume 8.7 6.9-10.8 fL Neutrophils (%) (Auto) 86.8 H 37.0-80.0 % Lymphocytes (%) (Auto) 6.0 L 10.0-50.0 % Monocytes (%) (Auto) 6.9 0.0-12.0 % Eosinophils (%) (Auto) 0.1 0.0-7.0 % Basophils (%) (Auto) 0.2 0.0-2.0 % Neutrophils # (Auto) 14.0 H 1.6-8.6 10 ^3/uL Lymphocytes # (Auto) 1.0 0.4-5.4 10 ^3/uL Monocytes # (Auto) 1.1 0-1.3 10 ^3/uL Eosinophils # (Auto) 0 0-0.8 10 ^3/uL Basophils # (Auto) 0 0-0.2 10 ^3/uL Nucleated Red Blood Cells 0.4 % Sodium Level 147 H 136-145 mmol/L Potassium Level 5.4 H 3.5-5.1 mmol/L Chloride Level 116 H 98-107 mmol/L Carbon Dioxide Level 19 L 20-31 mmol/L Anion Gap 12 5-15 Blood Urea Nitrogen 81 #*H 9-23 mg/dL Creatinine 3.09 H 0.700-1.30 mg/dL Glomerular Filtration Rate Calc 21 >90 mL/min BUN/Creatinine Ratio 26.2 H 10.0-20.0 Serum Glucose 182 H 74-106 mg/dL Calcium Level 8.4 L 8.7-10.4 mg/dL Magnesium Level 2.9 H 1.6-2.6 mg/dL Total Bilirubin 3.4 H 0.2-1.0 mg/dL Aspartate Amino Transferase (AST) 29 13-40 U/L Alanine Aminotransferase (ALT) 51 H 7-40 U/L Alkaline Phosphatase 87 46-116 U/L Total Protein 5.2 L 5.7-8.2 g/dL Albumin 2.7 L 3.2-4.8 g/dL Prothrombin Time 13.9 H 9.3-11.8 sec Prothrombin Time INR 1.35 H 0.9-1.15 Activated Partial Thromboplast Time 39.6 H 24.5-34.5 SEC Lactic Acid Level 2.4 *H 0.4-2.0 mmol/L Test 02/07/25 07:15 02/07/25 01:30 02/06/25 10:05 02/06/25 04:42 Range/Units Ammonia 84 H 11-32 umol/L Lipase 65 H 12-53 U/L Urine Color Yellow Yellow Urine Clarity Clear Clear Urine pH 5.0 5.0-9.0 Urine Specific [place] 1.021 1.001-1.035 Urine Protein 1+ H Negative Urine Ketones Trace Negative Urine Blood 2+ H Negative /uL Urine Nitrite Negative Negative Urine Bilirubin Negative Negative Urine Urobilinogen Normal Negative mg/dL Urine Leukocyte Esterase Negative Negative /uL Urine RBC 1 0 - 3 /hpf Urine Microscopic WBC 3 0-3 /HPF Urine Squamous Epithelial Cells Few <5 /hpf Urine Bacteria None seen None Seen /hpf Urine Hyaline Casts Few 0 - 2 /lpf Urine Mucus Few None Seen Urine Yeast (Budding) Occasional None Seen /hpf Urine Creatinine 102.35 30.0-125.0 mg/dL Urine Protein/Creatinine Ratio 0.61 Urine Sodium 15 L 40-220 mmol/L Urine Glucose 2+ H Normal mg/dL Urine Total Protein 62.1 H 1-14 mg/dL Blood Gas Specimen Type Arterial Blood Gas Sample Site Right radial Blood Gas Patient Temperature 37.0 Arterial Blood Date Drawn [id number] Arterial Blood pH 7.248 *L 7.350-7.450 Arterial Blood Partial Pressure CO2 21.5 L 35.0-48.0 mmHg Arterial Blood Partial Pressure O2 81.5 L 83.0-108.0 mmHg Arterial Blood HCO3 9.2 L 21.0-28.0 mmol/L Arterial Blood Oxygen Saturation 94.2 94.0-98.0 % Arterial Blood Base Excess -15.8 L -2.0-3.0 mmol/L Arterial Blood Oxyhemoglobin 92.9 L 94.0-98.0 % Arterial Blood Carboxyhemoglobin 0.6 0.5-1.5 % Arterial Blood Methemoglobin 0.8 0.0-1.5 % Charan Test Modified Blood Gas Total Hemoglobin 15.20 13.5-17.5 g/dL Blood Gas Modality Room air Blood Gas Spontaneous Rate 28 FiO2 % 21.0 Specimen Drawn By [employer] [employer] Blood Gas Critical Value Read Back Yes Blood Gas Notified Whom aurea Duran Blood Gas Notified Time [id number] Blood Gas Notified By Oniel richard Random Vancomycin Level 16.3 H 5-10 ug/mL Test 02/06/25 03:00 02/05/25 16:22 Range/Units Troponin I High Sensitivity 54 </=54 ng/L B-Type Natriuretic Peptide 162.33 0-100 pg/mL Microbiology Date/Time Source Procedure Growth Status 02/05/25 20:41 Blood Blood Culture - Final NO GROWTH AFTER 5 DAYS OF INCUBATION. Complete Assessment [id number] afebrile VSS ABD SOFT DISTENDED NON ACUTE GASTROGRAFIN STUDY NO SBO RECENT UGI POSSIBLE GASTROPARESIS CONSERVATIVE HIGH RISK FOR SURGERY KEEP NPO NG KUB AM Plan discussed with: Patient MARIANA PENA MD February 14, 2025 21:16
[2025-02-15] VITALS (37 sets, daily range): BP systolic 95–124; BP diastolic 48–68; PULSE 69–77; RESP 10–25; TEMP 97.4–98.4; O2SAT 91–97
--- NOTE | 2025-02-15 | DVHINCON2 ---
DATE OF CONSULTATION: 02/14/2025 HISTORY OF PRESENT ILLNESS: The patient is 69 years old coming with abdominal pain and distention. There was suspected bowel obstruction. Gastrografin study done earlier did not show evidence of bowel obstruction and he was treated conservatively and I was asked to see him as he was not improving and the pain is much less; however, he has some nausea and vomiting and G-tube has been replaced and no bowel activity. He does have flatus, but no BM. PHYSICAL EXAMINATION: VITAL SIGNS: Afebrile, stable signs. GENERAL: There is no evidence of pallor, cyanosis or jaundice. NECK: Supple and nontender with no thyromegaly or lymphadenopathy. CHEST AND LUNGS: Clear. HEART: Within normal limits. ABDOMEN: Soft, distended, but no rebound. Does not have any acute abdomen. NEUROLOGIC: Not assessed. CLINICAL IMPRESSION: Resolving ileus. He does have gastroparesis possibility as per the upper GI done and with a past medical history of congestive heart failure, diabetes, hypertension, liver cirrhosis. He is very high risk for surgery. PLAN: At this point, conservative management and NG to low continuous suction with keeping him NPO with the possibility of resolution. MD SREEKANTH Mabry/GERA TID: [id number] RECEIPT: [id number] cc: Rochelle Natarajan MD
--- NOTE | 2025-02-15 06:28 | DVH ---
EXAM: XR Chest, 1 View CLINICAL INDICATION: new NGT confirm placement TECHNIQUE: Frontal view of the chest. COMPARISON: XY CHEST XRAY 1 VIEW on DOS: 02/14/25, XY CHEST XRAY 1 VIEW on DOS: 02/09/25, XY CHEST XRA Y 1 VIEW on DOS: 02/06/25, XY CHEST XRAY 1 VIEW on DOS: 02/04/25, XY CHEST PORTABLE on DOS: 07/19/24 FINDINGS: LUNGS AND PLEURAL SPACES: Unremarkable. No consolidation. No pneumothorax. HEART: Unremarkable. No cardiomegaly. MEDIASTINUM: Unremarkable. Normal mediastinal contour. BONES/JOINTS: Unremarkable. No acute fracture. TUBES, LINES AND DEVICES: The current study is somewhat under penetrated. The distal tip of the NG tube can not be clearly localized. OTHER FINDINGS: . IMPRESSION: The current study is somewhat under penetrated. The distal tip of the NG tube can not be clearly loc alized.
[2025-02-15 06:54] LABS: Basophils # (auto) 0 10 ^3/uL (0-0.2); Basophils % (auto) 0.3 % (0.0-2.0); Eosinophils # (auto) 0 10 ^3/uL (0-0.8); Hematocrit 41.4 % (41.0-53.0); Hemoglobin 13.6 g/dL (13.5-17.5); Lymphocytes # (auto) 0.8 10 ^3/uL (0.4-5.4); Mean Corpuscular Hemoglobin 32.5 pg (28.0-32.0); Mean Corpuscular Hgb Conc. 32.7 g/dL (32.0-36.0); Mean Corpuscular Volume 99.4 fL (80.0-100.0); Monocytes # (auto) 0.8 10 ^3/uL (0-1.3); Monocytes % (auto) 5.2 % (0.0-12.0); Neutrophils # (auto) 14.3 10 ^3/uL (1.6-8.6); Neutrophils % (auto) 89.5 % (37.0-80.0); Nucleated Red Blood Cells % 0.3 %; Platelet Count (auto) 121 10^3/uL (140-450); Red Blood Cells 4.17 10^6/uL (4.5-5.90)
[2025-02-15 07:01] LABS: Red Cell Distribution Width 21.1 % (11.8-14.3)
[2025-02-15 07:08] LABS: Alkaline Phosphatase 81 U/L (46-116); Anion Gap 16 (5-15); Aspartate Aminotransferase 35 U/L (13-40); BUN/Creatinine Ratio 24.3 (10.0-20.0)
[2025-02-15 07:32] LABS: Chloride 116 mmol/L (98-107); Potassium 5.8 mmol/L (3.5-5.1); Sodium 150 mmol/L (136-145)
[2025-02-15 07:33] LABS: Alanine Aminotransferase 41 U/L (7-40); Albumin 2.6 g/dL (3.2-4.8); Bilirubin, Total 3.6 mg/dL (0.2-1.0); Blood Urea Nitrogen 102 mg/dL (9-23); Carbon Dioxide 18 mmol/L (20-31); Glucose 191 mg/dL (74-106)
[2025-02-15] MEDS: InsuLIN REG 1unit/0.01ml Soln (100units/ml) IV ONE (08:30)
[2025-02-15] MEDS: DEXTROSE (50%) 50ML SYRG IV ONE (09:15)
[2025-02-15] MEDS: D5W 5% 1,000 ML IV SCH (10:57)
[2025-02-15] MEDS ORDERED: TPN PER PHARMACY 0 ML IV SCH (14:00)
--- NOTE | 2025-02-15 14:28 | DVHPN2 ---
Progress Note - Dictate Date Seen: February 15, 2025 Has the PT tested + for MRSA If YES, has PT been informed?: No Medical Necessity Reason Pt with a Central, PICC or Fol: No Subjective 69 y o male with recurrent admissions due to hepatic encephalopathy secondary to alcoholic liver cirrhosis, hyperammonemia, history of 2 NE 30 years back, CKD 3B, diabetes mellitus type 2, heart failure with preserved ejection fraction at 60%, colonoscopy status post polypectomy in 2019, paroxysmal atrial fibrillation, splenomegaly, UTI, pneumonia status post intubation in 2018, hypertension and hyperlipidemia 02/07/25 : patient has moderate abdominal distention but at this time denies any abdominal discomfort, there was no nausea vomiting or GI bleeding; Abdominal ultrasound did not show enough ascites for paracentesis KUB shows moderate amount of small bowel distention SBFT c/w ileus 02/11/25: Patient is still having moderate amount of output via the NG tube about 1 L however the patient has been drinking moderate amount of ice chips and melted water. He has not had a bowel movements today but there were three or four recorded bowel movements on 02/09/2025. Patient states he is very hungry and he has nothing in his intestines There was no abdominal pain no nausea or vomiting 02/12/25 Patient did not tolerate clamping is NG-tube When the NG tube was reconnected to canister of over a L of fluid was aspirated No bowel movement recorded 02/13/25 Patient is out of bed to chair Continues to have moderate NG tube output, about 850 was drain this morning and since then he has had another 450 Patient has been made strict NPO by surgical consult but patient is asking to drink something 02/15/25 Patient continues to do poorly he is slightly confused his labs are worsening with increasing potassium and BUN creatinine His abdomen is very distended; no shortness of breath patient has been followed by surgical consult and so far conservative management has been recommended because of high-risk for surgery He had two small smears of bowel movements after the Gastrografin series yesterday He is having moderate amount of output over a L per shift via NG tube Gastrografin small-bowel series done two days ago had shown gastroparesis with no contrast in small-bowel Patient is being transferred to ICU today room 112 vital signs Vital Sign Date Time Temp Pulse Resp B/P (MAP) Pulse Ox O2 Delivery O2 Flow Rate FiO2 02/15/25 13:00 97.4 71 18 99/57 (26) 94 97.4 02/15/25 09:40 Room Air 0.0 02/15/25 09:34 21 Total Intake and Output 02/14/25 02/14/25 02/15/25 15:00 23:00 07:00 Intake Total 50 ml 200 ml Output Total 400 ml 100 ml 1100 ml Balance -350 ml 100 ml -1100 ml medications Current Medications Medications Dose Ordered Sig/Tanya Route Start Time Stop Time Status Last Admin Dose Admin Metronidazole 100 ml @ 100 mls/hr Q8HR IV 02/06/25 06:00 02/15/25 05:36 100 MLS/HR Carvedilol 6.25 mg Q12HR PO 02/06/25 10:00 02/14/25 21:27 6.25 MG Rifaximin 550 mg BID PO 02/06/25 10:00 02/14/25 21:27 550 MG Pantoprazole Sodium 40 mg DAILY IV 02/06/25 10:00 02/15/25 10:56 40 MG Diagnostic Test (Pha) 1 strip Q6HR 02/06/25 00:00 02/15/25 05:40 1 STRIP Insulin Human Regular Q6HR SC 02/06/25 00:00 02/15/25 05:48 3 UNITS Dextrose 50 ml UD PRN IV 02/05/25 22:15 Ondansetron HCl 4 mg Q4HP PRN IV 02/05/25 22:15 02/09/25 04:27 4 MG Acetaminophen 650 mg Q6HP PRN PO 02/05/25 22:15 02/12/25 03:43 650 MG Docusate Sodium 100 mg BID PO 02/06/25 10:00 02/14/25 21:27 100 MG Lactulose 30 ml Q6HR PO 02/06/25 18:00 02/15/25 05:36 30 ML Ceftriaxone Sodium/Dextrose 50 ml @ 50 mls/hr DAILY@0900 IV 02/07/25 09:00 02/15/25 10:56 50 MLS/HR Morphine Sulfate 2 mg Q4HPRN PRN IV 02/08/25 14:45 02/15/25 05:37 2 MG Dextrose 1,000 ml @ 125 mls/hr Q8H IV 02/15/25 10:15 02/15/25 10:57 125 MLS/HR Amino Acids 0 ml @ 0 mls/hr PER PHARMACY IV 02/15/25 14:00 UNV objective General: Well-built, obese, slight scleral icterus, mucosae are moist Cardiovascular: Regular S1 and S2 rrr trace bilateral pedal edema Respiratory: Normal B/L air entry on room air. Clear lung sounds on auscultation Abdomen: Soft, Distended, hypoactive bowel sounds, no rebound tenderness, no organomegaly, no masses Neurological: No motor, no sensitive deficits, normal speech. Pupils are isocoric and reactive. Psych/Mental Status: A/Ox3 laboratory and microbiology Laboratory Tests 02/15/25 06:22 Test 02/15/25 06:22 Range/Units Serum Glucose 191 H 74-106 mg/dL Problems(with codes): (1) Ileus (2) Cirrhosis of liver (3) GERD (gastroesophageal reflux disease) (4) Lactic acidosis (5) Hepatic encephalopathy (6) Abdominal pain (7) Electrolyte imbalance (8) Altered level of consciousness (9) Acute renal insufficiency Prognosis Plan NPO NG tube to low intermittent suction Continue IV TPN IV antibiotics Get repeat KUB today Correct coagulopathy Nephrology consult CT scan abdomen pelvis without contrast Prognosis remains guarded Monitor labs, check ammonia level normal consider lactulose enema Dietary Evaluation Review Comments: 1) Advance to CCHO 60gm + Renal specific 60gm as medically feasible 2) Refer to CDE on DC 3) Continue current plan of care Expected Outcomes/Goals: To meet 75% estimated needs fu 2-3 days Plan discussed with: Other (Nurse) ZENAIDA PENA MD February 15, 2025 14:28
--- NOTE | 2025-02-15 15:02 | DVH ---
Date: 02/15/2025 02:17 PM Examination: XY KUB ABDOMEN SINGLE VIEW History: ILEUS Comparison: XY KUB ABDOMEN SINGLE VIEW on DOS: 02/06/25 TECHNIQUE: Frontal views of the abdomen was obtained. FINDINGS/IMPRESSION: Enteric tube in appropriate position. Dilated loops of small bowel are visualized with gas and stool visualized in the colon. No definite evidence of contrast in the colon although exam is limited due to technique.
[2025-02-15 15:18] LABS: Basophils # (auto) 0 10 ^3/uL (0-0.2); Basophils % (auto) 0.1 % (0.0-2.0); Eosinophils # (auto) 0 10 ^3/uL (0-0.8); Eosinophils % (auto) 0.1 % (0.0-7.0); Hematocrit 42.2 % (41.0-53.0); Hemoglobin 13.6 g/dL (13.5-17.5); Lymphocytes # (auto) 0.9 10 ^3/uL (0.4-5.4); Lymphocytes % (auto) 6.2 % (10.0-50.0); Mean Corpuscular Hemoglobin 32.5 pg (28.0-32.0); Mean Corpuscular Hgb Conc. 32.3 g/dL (32.0-36.0); Mean Corpuscular Volume 100.6 fL (80.0-100.0); Monocytes # (auto) 0.7 10 ^3/uL (0-1.3); Monocytes % (auto) 4.8 % (0.0-12.0); Neutrophils # (auto) 13.4 10 ^3/uL (1.6-8.6); Neutrophils % (auto) 88.8 % (37.0-80.0); Nucleated Red Blood Cells % 0.2 %; Platelet Count (auto) 111 10^3/uL (140-450); Red Blood Cells 4.19 10^6/uL (4.5-5.90); White Blood Cell 15.1 10^3/uL (4.4-10.8)
[2025-02-15 15:32] LABS: INR 2.42 (0.9-1.15); Partial Thromboplastin Time 47.7 SEC (24.5-34.5); Prothrombin Time 23.5 sec (9.3-11.8)
[2025-02-15 15:35] LABS: Alanine Aminotransferase 37 U/L (7-40); Alkaline Phosphatase 84 U/L (46-116); Anion Gap 14 (5-15); Aspartate Aminotransferase 30 U/L (13-40); BUN/Creatinine Ratio 25.9 (10.0-20.0)
[2025-02-15 15:36] LABS: Albumin 2.6 g/dL (3.2-4.8); Bilirubin, Total 3.5 mg/dL (0.2-1.0); Carbon Dioxide 19 mmol/L (20-31); Chloride 118 mmol/L (98-107); Glucose 209 mg/dL (74-106); Magnesium 3.1 mg/dL (1.6-2.6); Potassium 5.5 mmol/L (3.5-5.1); Sodium 151 mmol/L (136-145)
[2025-02-15 15:46] LABS: Blood Urea Nitrogen 115 mg/dL (9-23)
--- NOTE | 2025-02-15 16:43 | DVH ---
Indication: r/o bowel obstruction Technique: CT axial images of the abdomen and pelvis are obtained without contrast. Coronal and sagit rocío reformats were obtained. Radiation Dose Information: CTDI volume is 24.1 mGy. Dose-length product is 1603.44 mGy*cm Comparison: 02/04/2025, small-bowel series from 2024 FINDINGS: There is limited interpretation of the abdomen and pelvis without administration of intravenous contr ast. Lung bases demonstrate atelectasis. Adrenal glands, spleen and pancreas unremarkable in shape. Cirrhotic morphology liver. The kidneys demonstrate no hydronephrosis. There is contrast from a prior examination. No CT evidence for cholelithiasis. Perisplenic varices. Nasogastric tube projecting towards the distal stomach. Gastric wall thickening. The small bowel loo ps are abnormally dilated up to approximately 3.8 cm. There is bowel wall thickening of small-bowel l oops within the right lower quadrant of the abdomen. Contrast is seen from the small-bowel series ext ending into the splenic flexure of the colon. However the majority of contrast remains within the sm all bowel loops. The distal small bowel loops are relatively nondilated with findings suggestive of small-bowel obstruction with suspected transition point in the right lower quadrant of the abdomen. There is mesenteric edema and stranding. There is a small amount of ascites fluid. Colonic diverticular disease. Postsurgical changes in the right lower quadrant. Abdominal aortic atherosclerotic disease. Bladder is decompressed by Lopez catheter. Small amount of contrast within the bladder. No inguinal lymphadenopathy. Moderate bilateral sacroiliac degenerative joint disease. [id number] thoracolumbar degenerative disc disease. IMPRESSION: 1. Contrast from the previous small bowel series is primarily within the small bowel but does extend into the colon up to the splenic flexure. The distal small bowel loops are relatively nondilated. Th ere is mesenteric edema and stranding as well as small bowel wall thickening. These findings are sug gestive of at least a partial small bowel obstruction. Recommend surgical consultation. 2. Cirrhotic Morphology liver with sequela portal hypertension including extensive perisplenic varice s. 3. Small amount of ascites fluid which may be secondary to the underlying cirrhosis and/or small juliana l obstruction. 4. Other findings as described.
--- NOTE | 2025-02-15 17:02 | DVHPN2 ---
Subjective Patient was still complaining of abdominal pain He is still has no bowel sounds Abdomen is distended Labs showed high sodium at 1:51 a.m. and potassium 5.5 and creatinine is up to 4.4 and ammonia is 25 White count is 15.1 and hemoglobin is 13.6 and the platelets are going lower and it is 111 now We discussed the case with the son at the bedside and I called Dr. Lesia Herzog who evaluated the patient and ordered a KUB which showed dilated loops of small bowel Dr. Lesia Herzog also ordered a CT scan of the abdomen which is showing a bowel obstruction, I just was called by the radiologist and received the report for the bowel obstruction on CT scan The patient was just transferred to the OU for closer observation because of altered level of consciousness Changes from previous H/P or p: Changes Objective Vitals Vital Signs Date Time Temp Pulse Resp B/P (MAP) Pulse Ox O2 Delivery O2 Flow Rate FiO2 02/15/25 15:46 94 Room Air* 0 21 02/15/25 13:00 97.4 71 18 99/57 (71) 97.4 Intake/Output Intake and Output 02/15/25 07:00 Intake Total 250 ml Output Total 1600 ml Balance -1350 ml Intake Oral 0 ml IV Total 250 ml Output Urine Total 400 ml Gastric Drainage Total 1200 ml # Bowel Movements 1 General Appearance: Alert, Oriented X3, Cooperative, No acute distress Lungs: Clear to auscultation Cardiovascular: Regular rate, Normal S1, Normal S2 Abdomen: Normal bowel sounds, Other (Distended and generalized tenderness) Extremities: Other (1+ edema bilaterally in the lower extremities) Medications Current Medications Medications Dose Ordered Sig/Tanya Route Start Time Stop Time Status Last Admin Dose Admin Metronidazole 100 ml @ 100 mls/hr Q8HR IV 02/06/25 06:00 02/15/25 14:24 100 MLS/HR Carvedilol 6.25 mg Q12HR PO 02/06/25 10:00 02/14/25 21:27 6.25 MG Rifaximin 550 mg BID PO 02/06/25 10:00 02/14/25 21:27 550 MG Pantoprazole Sodium 40 mg DAILY IV 02/06/25 10:00 02/15/25 10:56 40 MG Ondansetron HCl 4 mg Q4HP PRN IV 02/05/25 22:15 02/09/25 04:27 4 MG Acetaminophen 650 mg Q6HP PRN PO 02/05/25 22:15 02/12/25 03:43 650 MG Docusate Sodium 100 mg BID PO 02/06/25 10:00 02/14/25 21:27 100 MG Lactulose 30 ml Q6HR PO 02/06/25 18:00 02/15/25 05:36 30 ML Ceftriaxone Sodium/Dextrose 50 ml @ 50 mls/hr DAILY@0900 IV 02/07/25 09:00 02/15/25 10:56 50 MLS/HR Morphine Sulfate 2 mg Q4HPRN PRN IV 02/08/25 14:45 02/15/25 11:30 2 MG Dextrose 1,000 ml @ 125 mls/hr Q8H IV 02/15/25 10:15 02/15/25 10:57 125 MLS/HR Amino Acids 0 ml @ 0 mls/hr PER PHARMACY IV 02/15/25 14:00 Diagnostic Test (Pha) 1 strip Q6HR 02/16/25 00:00 Insulin Human Regular FOLLOW SLIDING SCALE Q6HR SC 02/16/25 00:00 Dextrose 50 ml UD IV 02/15/25 22:00 Amino Acids/ Electrolytes/ Dextrose 1,000 ml @ 41 mls/hr DAILY@2200 IV 02/15/25 22:00 02/16/25 21:59 Laboratory Results Laboratory Tests 02/15/25 15:00 Chemistry Test 02/15/25 06:22 02/15/25 15:00 Albumin 2.6 g/dL (3.2-4.8) L 2.6 g/dL (3.2-4.8) L Calcium Level 8.0 mg/dL (8.7-10.4) L 8.0 mg/dL (8.7-10.4) L Magnesium Level 3.0 mg/dL (1.6-2.6) H 3.1 mg/dL (1.6-2.6) H Total Protein 5.0 g/dL (5.7-8.2) L 5.0 g/dL (5.7-8.2) L Coagulation Test 02/15/25 15:00 Prothrombin Time 23.5 sec (9.3-11.8) H Prothrombin Time INR 2.42 (0.9-1.15) H Activated Partial Thromboplast Time 47.7 SEC (24.5-34.5) H LFT Test 02/15/25 06:22 02/15/25 15:00 Alanine Aminotransferase (ALT) 41 U/L (7-40) H 37 U/L (7-40) Alkaline Phosphatase 81 U/L (46-116) 84 U/L (46-116) Aspartate Amino Transferase (AST) 35 U/L (13-40) 30 U/L (13-40) Total Bilirubin 3.6 mg/dL (0.2-1.0) H 3.5 mg/dL (0.2-1.0) H Urinalysis Test 02/07/25 01:30 Urine Color Yellow (Yellow) Urine Clarity Clear (Clear) Urine pH 5.0 (5.0-9.0) Urine Specific [place] 1.021 (1.001-1.035) Urine Protein 1+ (Negative) H Urine Ketones Trace (Negative) Urine Blood 2+ /uL (Negative) H Urine Nitrite Negative (Negative) Urine Bilirubin Negative (Negative) Urine Urobilinogen Normal mg/dL (Negative) Urine Leukocyte Esterase Negative /uL (Negative) Urine RBC 1 /hpf (0 - 3) Urine Microscopic WBC 3 /HPF (0-3) Urine Squamous Epithelial Cells Few /hpf (<5) Urine Bacteria None seen /hpf (None Seen) Urine Hyaline Casts Few /lpf (0 - 2) Urine Mucus Few (None Seen) Urine Yeast (Budding) Occasional /hpf (None Urine Creatinine 102.35 mg/dL (30.0-125.0) Urine Protein/Creatinine Ratio 0.61 Urine Sodium 15 mmol/L (40-220) L Urine Glucose 2+ mg/dL (Normal) H Urine Total Protein 62.1 mg/dL (1-14) H Microbiology Microbiology Date/Time Source Procedure Growth Status 02/05/25 20:41 Blood Blood Culture - Final NO GROWTH AFTER 5 DAYS OF INCUBATION. Complete Assessment/Plan Assessment/Plan Abdominal pain Rule out bowel obstructionsurgical Intractable nausea and vomiting Constipation Hepatic encephalopathy Liver cirrhosis Possible hepatorenal syndrome Acute kidney injury/chronic kidney disease Thrombocytopenia Leukocytosis Type 2 diabetes Hypertension Mixed hyperlipidemia Ascites Lactic acidosis Hyperkalemia Hyponatremia Moderate protein malnutrition Plan Keep NPO Surgical consult Continue lactulose Continue rifaximin GI consult Nephrology consult Paracentesis was attempted, not enough ascites fluids for the procedure to be done Hepatorenal syndrome? : Give albumin IV IV ceftriaxone and Flagyl empirically Full code Advance directives discussed for 20 minute 02/07/2025: Hyponatremia Hyperkalemia Acute kidney injury: Worsening, nephrology on board Metabolic acidosis Chronic kidney disease Liver cirrhosis Hepatic encephalopathy: Improved continue lactulose Abdominal distention and pain: Surgical consult pending 02/08/2025: Small bowel series today to rule out bowel obstruction GI is on board Nephrology is on board Kidney function is improving with a creatinine of 3.0 and carbon dioxide of 22 today Monitor closely 02/09/25: Abdominal pain, Vomiting SBO vs Ileus: NPO, NG tube to suction, surgical consult Urinary retention: Lopez IV fluids IV antibiotics 02/10/2025: Continue NG tube suction Surgical consult Continue NPO Lopez catheter IV fluids IV antibiotics Monitor closely 02/11/2025: Continue the current management with NG tube suction and NPO IV antibiotics IV fluids Awaiting surgical consult Monitor the patient closely The rest of the management will depend on the hospital course 02/12/2025: Continue the NG tube suction Surgical consult is pending I discussed the case with Dr. Luna who will see the patient today Kidney function has improved significantly, creatinine is down to 1.5 Liver cirrhosis Hepatic encephalopathy: Stable 02/13/2025: Continue NG tube suction Surgical Service Dr. Luna is following IV fluids Monitor the kidney function Hepatic encephalopathy: Alert and oriented, monitor Monitor closely JANET Hypernatremia Hyperkalemia 02/14/2025: Abdominal pain and distention, small bowel obstruction versus ileus: Small bowel series done today, pending Consult general surgery, Dr. Lesia Herzog Continue NPO and NG tube suction for now Continue IV fluids Acute kidney injury: Liver cirrhosis Hypernatremia Hyperkalemia 02/15/2025: The patient appears to be going septic with a altered level of consciousness and worsening kidney function and hyperkalemia and hypernatremia The patient does not have any bowel sounds The patient is not having any bowel movements KUB and CT scan of the abdomen and pelvis showed possible bowel obstruction Transfer the patient to the OU Keep NPO Start tPA NG tube to suction General surgery is following, Dr. Lesia Herzog is considering surgery Very high risk for surgery due to liver cirrhosis and kidney failure and coagulopathy and thrombocytopenia Coagulopathy due to liver cirrhosis Thrombocytopenia due to sepsis and liver cirrhosis Possible hepatorenal syndrome Give albumin IV Discussed with the son at the bedside, explained the poor prognosis, explained the comorbidities including liver cirrhosis and kidney failure, explained that if the patient needs surgery it would be high risk Continue IV fluids Nephrology consult is on board GI is also seeing the patient Give Vitamin K and fresh frozen plasma In case he needs surgery, he will need fresh frozen plasma JANET: D5W IV until TPN is started Guarded prognosis Full code Plan discussed with: Patient, Son My Orders Orders - JOVON LOPEZ MD Procedure Category Date Status Time * Surgical Consult CONS 02/14/25 Transmitted Chest Xray 1 View XY 02/15/25 Resulted 04:50 D5w 5% (Dextrose 5%) PHA 02/15/25 In Process 10:15 Pt Request For Service PT 02/15/25 Logged 11:25 *Dr. Tyree Henson CONS 02/15/25 Transmitted -[place] 13:49 Tpn Per Pharmacy PHA 02/15/25 In Process 14:00 Kub Abdomen Single XY 02/15/25 Resulted View 13:58 Transfer Orders XFER 02/15/25 Transmitted 13:58 Mrsa Screen GRECIA 02/15/25 Logged 15:06 Glucose Blood PHA 02/16/25 In Process (Accu-Chek Comfort 00:00 Insulin R (Human) PHA 02/16/25 In Process (Insulin R) 00:00 Dextrose 50% Syringe PHA 02/15/25 In Process 22:00 Amino Acid Infusion PHA 02/15/25 In Process In D10w (Clinimix 4. 22:00 Notify Provider NOTICE 02/15/25 Transmitted Malnutrition 15:15 Nutritional NOURISH 02/15/25 Transmitted Supplements 15:15 Comprehensive LAB 02/16/25 Verified Metabolic Panel 04:00 Magnesium LAB 02/16/25 Verified 04:00 Phosphorus LAB 02/16/25 Verified 04:00 Triglycerides LAB 02/16/25 Verified 04:00 Tpn Per Pharmacy JANET 02/15/25 In Process 22:00 Date of Service: February 15, 2025 Billing Provider: JOVON LOPEZ MD Common Visit Codes: [id number] INP/OBS CARE(HIGH) JOVON LOPEZ MD February 15, 2025 17:02
--- NOTE | 2025-02-15 19:05 | DVHNC2 ---
Central Line Recorder of insertion practice: Towboat Engineer Occupation of rn infusion: Other, Name of rn infusion (Jose davila, resident) Indication: Hypotension, Volume resuscitation Room prepared for procedure: Yes Towboat Engineer performed hand hygien: Yes Maximal sterile barrier precau: Mask/Eye shield, Sterile gown, Cap, Sterlie gloves, Large sterlie drape Skin Preparation: Chlorhexidine gluconate Skin preparation completely dr: Yes Insertion site: Right Central line catheter type: [id number] dialysis Number of lumens: 3 Informed consent obtained: Yes Risks/benefits/alt described: Yes Notes Central line placed on the right side of the neck under sterile condition. Supervised by Dr. Bolanos Chest x-ray. No pneumothroax noted. Central in the right atrium Date of Service: February 15, 2025 Billing Provider: JOVON LOPEZ MD Procedure Codes: [id number] NON-TUNNEL CV CATH JOSE DAVILA February 15, 2025 19:05 JOVON LOPEZ MD February 16, 2025 19:19
--- NOTE | 2025-02-15 19:34 | DVH ---
CHEST RADIOGRAPH Indication: CONFIRM CENTRAL LINE PLACEMENT Technique: Single frontal view of the chest was obtained COMPARISON: XY CHEST XRAY 1 VIEW on DOS: 02/15/25, XY CHEST XRAY 1 VIEW on DOS: 02/14/25, XY CHEST XRAY 1 VIEW on DOS: 02/09/25, XY CHEST XRAY 1 VIEW on DOS: 02/06/25, XY CHEST XRAY 1 VIEW on DOS: 02/04/25 FINDINGS: Lines and Tubes: Right-sided central venous catheter is seen with tip in the right atrium. Enteric t ube courses below the diaphragm with tip collimated from view. Lungs: Probable mild interstitial pulmonary edema. Pleura: No effusion. No pneumothorax. Cardiomediastinal contours: Unremarkable Bones: Unremarkable IMPRESSION: 1. Probable mild interstitial pulmonary edema. 2. Right-sided central venous catheter seen with tip in the right atrium.
[2025-02-15] MEDS: phytonadione 10 MG in SODIUM CHL 0.9% 50 ML IV ONE (20:28)
[2025-02-15] MEDS: ALBUMIN 25% 100 ML IV SCH (21:45)
--- NOTE | 2025-02-15 21:55 | DVHPN2 ---
Progress Note Date Seen: February 15, 2025 Has the PT tested + for MRSA If YES, has PT been informed?: No Medical Necessity Reason Pt with a Central, PICC or Fol: No Objective vital signs Vital Sign Date Time Temp Pulse Resp B/P (MAP) Pulse Ox O2 Delivery O2 Flow Rate FiO2 02/15/25 20:30 72 18 120/63 (82) 95 02/15/25 20:00 98.4 98.4 02/15/25 20:00 Room Air* 0 21 Total Intake and Output 02/14/25 02/14/25 02/15/25 15:00 23:00 07:00 Intake Total 50 ml 200 ml Output Total 400 ml 100 ml 1100 ml Balance -350 ml 100 ml -1100 ml medications Current Medications Medications Dose Ordered Sig/Tanya Route Start Time Stop Time Status Last Admin Dose Admin Metronidazole 100 ml @ 100 mls/hr Q8HR IV 02/06/25 06:00 02/15/25 14:24 100 MLS/HR Carvedilol 6.25 mg Q12HR PO 02/06/25 10:00 02/14/25 21:27 6.25 MG Rifaximin 550 mg BID PO 02/06/25 10:00 02/14/25 21:27 550 MG Pantoprazole Sodium 40 mg DAILY IV 02/06/25 10:00 02/15/25 10:56 40 MG Ondansetron HCl 4 mg Q4HP PRN IV 02/05/25 22:15 02/09/25 04:27 4 MG Acetaminophen 650 mg Q6HP PRN PO 02/05/25 22:15 02/12/25 03:43 650 MG Docusate Sodium 100 mg BID PO 02/06/25 10:00 02/14/25 21:27 100 MG Lactulose 30 ml Q6HR PO 02/06/25 18:00 02/15/25 05:36 30 ML Ceftriaxone Sodium/Dextrose 50 ml @ 50 mls/hr DAILY@0900 IV 02/07/25 09:00 02/15/25 10:56 50 MLS/HR Morphine Sulfate 2 mg Q4HPRN PRN IV 02/08/25 14:45 02/15/25 19:58 2 MG Dextrose 1,000 ml @ 125 mls/hr Q8H IV 02/15/25 10:15 02/15/25 10:57 125 MLS/HR Amino Acids 0 ml @ 0 mls/hr PER PHARMACY IV 02/15/25 14:00 Diagnostic Test (Pha) 1 strip Q6HR 02/16/25 00:00 Insulin Human Regular FOLLOW SLIDING SCALE Q6HR SC 02/16/25 00:00 Dextrose 50 ml UD IV 02/15/25 22:00 Amino Acids/ Electrolytes/ Dextrose 1,000 ml @ 41 mls/hr DAILY@2200 IV 02/15/25 22:00 02/16/25 21:59 Albumin Human 100 ml @ 100 mls/hr Q8H IV 02/15/25 17:00 02/16/25 09:59 laboratory and microbiology Laboratory Tests 02/15/25 15:00 Test 02/15/25 15:00 Range/Units Serum Glucose 209 H 74-106 mg/dL Microbiology Date/Time Source Procedure Growth Status 02/05/25 20:41 Blood Blood Culture - Final NO GROWTH AFTER 5 DAYS OF INCUBATION. Complete Problem List/Assessment/Plan Problem List/Assessment/Plan AFEBRILE VSS ABD SOFT DISTENDED TENDER MID ABD CIRRHOSIS ASCITES R.O SBO CT SCAN ABD PELVIS POSSIBLE PARTIAL SBO HIGH RISK FOR SURGERY KEEP NPO NG IF NO RESOLUTION CONSIDER EMERGENT SURGERY CORRECT COAGULOPATHY Plan discussed with: Other Dietary Evaluation Review Comments: 1) [facility] + Renal specific 60gm as medically feasible 2) Refer to CDE on DC 3) Continue current plan of care Expected Outcomes/Goals: To meet 75% estimated needs fu 2-3 days MARIANA PENA MD February 15, 2025 21:55
[2025-02-15] MEDS ORDERED: DEXTROSE (50%) 50ML SYRG IV SCH (22:00)
[2025-02-15] MEDS: AMINO ACID INFUSION IN D10W 1,000 ML IV SCH (22:25)
[2025-02-15] MEDS: SODIUM BICARB 8.4% 50Meq/50ml SYR Vial IV ONE (23:43)
[2025-02-16] VITALS (66 sets, daily range): BP systolic 90–129; BP diastolic 50–74; PULSE 65–95; RESP 12–24; TEMP 97.7–98.7; O2SAT 91–99
[2025-02-16] MEDS: ACCU-CHEK COMFORT CURVE STRIP VI SCH (00:13)
[2025-02-16] MEDS: InsuLIN REG 1unit/0.01ml Soln (100units/ml) SC SCH (00:21)
[2025-02-16 05:40] LABS: Anion Gap 15 (5-15); Basophils # (auto) 0 10 ^3/uL (0-0.2); Basophils % (auto) 0.1 % (0.0-2.0); Eosinophils # (auto) 0 10 ^3/uL (0-0.8); Eosinophils % (auto) 0.1 % (0.0-7.0); Hematocrit 35.8 % (41.0-53.0); Hemoglobin 11.5 g/dL (13.5-17.5); Lymphocytes # (auto) 0.6 10 ^3/uL (0.4-5.4); Mean Corpuscular Hemoglobin 32.4 pg (28.0-32.0); Mean Corpuscular Hgb Conc. 32.3 g/dL (32.0-36.0); Mean Corpuscular Volume 100.4 fL (80.0-100.0); Monocytes # (auto) 0.5 10 ^3/uL (0-1.3); Monocytes % (auto) 4.3 % (0.0-12.0); Neutrophils # (auto) 10.6 10 ^3/uL (1.6-8.6); Neutrophils % (auto) 90.5 % (37.0-80.0); Nucleated Red Blood Cells % 0.3 %; Platelet Count (auto) 104 10^3/uL (140-450); Red Blood Cells 3.56 10^6/uL (4.5-5.90); Red Cell Distribution Width 22.3 % (11.8-14.3); White Blood Cell 11.7 10^3/uL (4.4-10.8)
[2025-02-16 05:41] LABS: Alanine Aminotransferase 27 U/L (7-40); Alkaline Phosphatase 70 U/L (46-116); BUN/Creatinine Ratio 32.4 (10.0-20.0); Potassium 4.8 mmol/L (3.5-5.1)
[2025-02-16 05:42] LABS: Aspartate Aminotransferase 22 U/L (13-40)
[2025-02-16 05:50] LABS: Bilirubin, Total 3.2 mg/dL (0.2-1.0); Carbon Dioxide 20 mmol/L (20-31); Chloride 111 mmol/L (98-107); Glucose 353 mg/dL (74-106); Phosphorus 6.1 mg/dL (2.4-5.1); Sodium 146 mmol/L (136-145); Total Protein 4.2 g/dL (5.7-8.2)
[2025-02-16 05:51] LABS: Albumin 2.3 g/dL (3.2-4.8); Calcium 7.4 mg/dL (8.7-10.4); Lipase 85 U/L (12-53); Magnesium 2.8 mg/dL (1.6-2.6)
[2025-02-16 05:52] LABS: Blood Urea Nitrogen 138 mg/dL (9-23)
[2025-02-16 06:07] LABS: Triglycerides 48 mg/dL (< 150)
[2025-02-16 08:43] LABS: INR 2.28 (0.9-1.15); Partial Thromboplastin Time 64.6 SEC (24.5-34.5); Prothrombin Time 22.3 sec (9.3-11.8)
[2025-02-16] MEDS: HEPARIN SODIUM (PORCINE) 5000 UNITS/ML 1ML VIAL ONE (10:31)
--- NOTE | 2025-02-16 10:32 | DVHPN2 ---
Progress Note - Dictate Date Seen: February 16, 2025 Has the PT tested + for MRSA If YES, has PT been informed?: No Medical Necessity Reason Pt with a Central, PICC or Fol: No Subjective 69 y o male with recurrent admissions due to hepatic encephalopathy secondary to alcoholic liver cirrhosis, hyperammonemia, history of 2 [place] 30 years back, CKD 3B, diabetes mellitus type 2, heart failure with preserved ejection fraction at 60%, colonoscopy status post polypectomy in 2019, paroxysmal atrial fibrillation, splenomegaly, UTI, pneumonia status post intubation in 2018, hypertension and hyperlipidemia 02/07/25 : patient has moderate abdominal distention but at this time denies any abdominal discomfort, there was no nausea vomiting or GI bleeding; Abdominal ultrasound did not show enough ascites for paracentesis KUB shows moderate amount of small bowel distention SBFT c/w ileus 02/11/25: Patient is still having moderate amount of output via the NG tube about 1 L however the patient has been drinking moderate amount of ice chips and melted water. He has not had a bowel movements today but there were three or four recorded bowel movements on 02/09/2025. Patient states he is very hungry and he has nothing in his intestines There was no abdominal pain no nausea or vomiting 02/12/25 Patient did not tolerate clamping is NG-tube When the NG tube was reconnected to canister of over a L of fluid was aspirated No bowel movement recorded 02/13/25 Patient is out of bed to chair Continues to have moderate NG tube output, about 850 was drain this morning and since then he has had another 450 Patient has been made strict NPO by surgical consult but patient is asking to drink something 02/15/25 Patient continues to do poorly he is slightly confused his labs are worsening with increasing potassium and BUN creatinine His abdomen is very distended; no shortness of breath patient has been followed by surgical consult and so far conservative management has been recommended because of high-risk for surgery He had two small smears of bowel movements after the Gastrografin series yesterday He is having moderate amount of output over a L per shift via NG tube Gastrografin small-bowel series done two days ago had shown gastroparesis with no contrast in small-bowel Patient is being transferred to ICU today room 112 02/16/25 Patient seen at bedside [id number] Patient states he is feeling better NG tube output is still ongoing but decreasing to 110 mL this shift, patient had 1200 mL recorded on 02/16/2024 He has not had a bowel movement Patient's urine output was low and he is undergoing a Darrick catheter placement; worsening renal failure Leukocytosis is improving and liver enzymes are stable vital signs Vital Sign Date Time Temp Pulse Resp B/P (MAP) Pulse Ox O2 Delivery O2 Flow Rate FiO2 02/16/25 10:20 98.4 72 20 101/50 98.4 02/16/25 10:00 95 Room Air 0.0 02/16/25 06:00 21 Total Intake and Output 02/15/25 02/15/25 02/16/25 15:00 23:00 07:00 Intake Total 625 ml 874 ml 1362 ml Output Total 600 ml 335 ml Balance 625 ml 274 ml 1027 ml medications Current Medications Medications Dose Ordered Sig/Tanya Route Start Time Stop Time Status Last Admin Dose Admin Metronidazole 100 ml @ 100 mls/hr Q8HR IV 02/06/25 06:00 02/16/25 06:11 100 MLS/HR Carvedilol 6.25 mg Q12HR PO 02/06/25 10:00 02/14/25 21:27 6.25 MG Rifaximin 550 mg BID PO 02/06/25 10:00 02/14/25 21:27 550 MG Pantoprazole Sodium 40 mg DAILY IV 02/06/25 10:00 02/16/25 09:53 40 MG Ondansetron HCl 4 mg Q4HP PRN IV 02/05/25 22:15 02/16/25 04:44 4 MG Acetaminophen 650 mg Q6HP PRN PO 02/05/25 22:15 02/12/25 03:43 650 MG Docusate Sodium 100 mg BID PO 02/06/25 10:00 02/14/25 21:27 100 MG Lactulose 30 ml Q6HR PO 02/06/25 18:00 02/15/25 05:36 30 ML Ceftriaxone Sodium/Dextrose 50 ml @ 50 mls/hr DAILY@0900 IV 02/07/25 09:00 02/15/25 10:56 50 MLS/HR Morphine Sulfate 2 mg Q4HPRN PRN IV 02/08/25 14:45 02/16/25 09:22 2 MG Dextrose 1,000 ml @ 125 mls/hr Q8H IV 02/15/25 10:15 02/16/25 10:10 125 MLS/HR Amino Acids 0 ml @ 0 mls/hr PER PHARMACY IV 02/15/25 14:00 Diagnostic Test (Pha) 1 strip Q6HR 02/16/25 00:00 02/16/25 05:37 1 STRIP Insulin Human Regular FOLLOW SLIDING SCALE Q6HR SC 02/16/25 00:00 02/16/25 06:11 16 UNITS Dextrose 50 ml UD IV 02/15/25 22:00 Amino Acids/ Electrolytes/ Dextrose 1,000 ml @ 41 mls/hr DAILY@2200 IV 02/15/25 22:00 02/16/25 21:59 02/15/25 22:25 41 MLS/HR objective General: Well-built, obese, slight scleral icterus, mucosae are moist Cardiovascular: Regular S1 and S2 rrr trace bilateral pedal edema Respiratory: Normal B/L air entry on room air. Clear lung sounds on auscultation Abdomen: Soft, Distended, hypoactive bowel sounds, no rebound tenderness, no organomegaly, no masses; well-healed supraumbilical midline scar Neurological: No motor, no sensitive deficits, normal speech. Pupils are isocoric and reactive. Psych/Mental Status: A/Ox3 laboratory and microbiology Laboratory Tests 02/16/25 04:51 Test 02/16/25 04:51 Range/Units Serum Glucose 353 #H 74-106 mg/dL Problems(with codes): (1) Altered level of consciousness (2) Acute renal insufficiency (3) Ileus (4) Cirrhosis of liver (5) GERD (gastroesophageal reflux disease) (6) UTI (urinary tract infection) (7) Lactic acidosis (8) Hyperkalemia (9) Hepatic encephalopathy Prognosis Assessment plan Continue IV NG tube to low intermittent suction Continue IV antibiotics Continue catheter placement with possible dialysis Monitor labs TPN Supportive care Surgical follow up Dietary Evaluation Review Comments: 1) [facility] + Renal specific 60gm as medically feasible 2) Refer to CDE on DC 3) Continue current plan of care Expected Outcomes/Goals: To meet 75% estimated needs fu 2-3 days Plan discussed with: Patient, Other (ONELIA nurse) ZENAIDA PENA MD February 16, 2025 10:31
[2025-02-16] MEDS: phytonadione 10 MG in SODIUM CHL 0.9% 50 ML IV ONE (11:09)
[2025-02-16] MEDS: D5W 5% 1,000 ML IV SCH (11:15)
[2025-02-16] MEDS: HEPARIN 1,000 UNITS/ml 1ML VIAL IV ONE (11:15)
--- NOTE | 2025-02-16 11:21 | DVH ---
Date: 02/16/2025 10:46 AM Examination: XY KUB ABDOMEN SINGLE VIEW History: bowel obstruction Comparison: XY KUB ABDOMEN SINGLE VIEW on DOS: 02/15/25, XY KUB ABDOMEN SINGLE VIEW on DOS: 02/06/25, XY KUB ABDOMEN SINGLE VIEW on DOS: 02/15/25 TECHNIQUE: Frontal views of the abdomen was obtained. FINDINGS/IMPRESSION 1. Enteric tube in appropriate position. Dilated loops of small bowel are visualized with gas and sto ol visualized in the colon. Contrast in the colon is better visualized on recent CT.
--- NOTE | 2025-02-16 11:27 | DVH ---
CHEST RADIOGRAPH Indication: POST hd CATH PLACEMENT Technique: Single frontal view of the chest was obtained Comparison: 02/15/2025 FINDINGS: Right IJ catheter tip projects over the SVC. Nasogastric tube projects towards stomach. Left IJ mel catheter tip projects over the confluence of the left IJ and brachiocephalic veins. The cardiac silhouette is enlarged. The lungs demonstrate bilateral patchy airspace opacities. The pu lmonary vasculature is prominent. There is no pleural effusion.. There is no pneumothorax. IMPRESSION: 1. Cardiomegaly with pulmonary vascular congestion and bilateral patchy airspace opacities. This is s imilar to the previous examination.
[2025-02-16 11:50] LABS: Alanine Aminotransferase 27 U/L (7-40); Alkaline Phosphatase 68 U/L (46-116); Anion Gap 12 (5-15); Aspartate Aminotransferase 22 U/L (13-40); BUN/Creatinine Ratio 34.9 (10.0-20.0); Potassium 4.8 mmol/L (3.5-5.1); Sodium 143 mmol/L (136-145)
[2025-02-16 11:51] LABS: Albumin 2.7 g/dL (3.2-4.8); Bilirubin, Total 3.5 mg/dL (0.2-1.0); Calcium 7.7 mg/dL (8.7-10.4); Carbon Dioxide 20 mmol/L (20-31); Chloride 111 mmol/L (98-107); Glucose 362 mg/dL (74-106); Magnesium 2.7 mg/dL (1.6-2.6); Total Protein 4.6 g/dL (5.7-8.2)
[2025-02-16 11:52] LABS: Blood Urea Nitrogen 143 mg/dL (9-23)
--- NOTE | 2025-02-16 12:23 | DVHPN2 ---
Progress Note Date Seen: February 16, 2025 Has the PT tested + for MRSA If YES, has PT been informed?: No Medical Necessity Reason Pt with a Central, PICC or Fol: No Objective vital signs Vital Sign Date Time Temp Pulse Resp B/P (MAP) Pulse Ox O2 Delivery O2 Flow Rate FiO2 02/16/25 12:05 98.0 74 18 126/64 98.0 02/16/25 10:00 95 Room Air 0.0 02/16/25 06:00 21 Total Intake and Output 02/15/25 02/15/25 02/16/25 15:00 23:00 07:00 Intake Total 625 ml 874 ml 1362 ml Output Total 600 ml 335 ml Balance 625 ml 274 ml 1027 ml medications Current Medications Medications Dose Ordered Sig/Tanya Route Start Time Stop Time Status Last Admin Dose Admin Metronidazole 100 ml @ 100 mls/hr Q8HR IV 02/06/25 06:00 02/16/25 06:11 100 MLS/HR Carvedilol 6.25 mg Q12HR PO 02/06/25 10:00 02/14/25 21:27 6.25 MG Rifaximin 550 mg BID PO 02/06/25 10:00 02/14/25 21:27 550 MG Pantoprazole Sodium 40 mg DAILY IV 02/06/25 10:00 02/16/25 09:53 40 MG Ondansetron HCl 4 mg Q4HP PRN IV 02/05/25 22:15 02/16/25 04:44 4 MG Acetaminophen 650 mg Q6HP PRN PO 02/05/25 22:15 02/12/25 03:43 650 MG Docusate Sodium 100 mg BID PO 02/06/25 10:00 02/14/25 21:27 100 MG Lactulose 30 ml Q6HR PO 02/06/25 18:00 02/15/25 05:36 30 ML Ceftriaxone Sodium/Dextrose 50 ml @ 50 mls/hr DAILY@0900 IV 02/07/25 09:00 02/16/25 10:58 50 MLS/HR Morphine Sulfate 2 mg Q4HPRN PRN IV 02/08/25 14:45 02/16/25 09:22 2 MG Amino Acids 0 ml @ 0 mls/hr PER PHARMACY IV 02/15/25 14:00 Diagnostic Test (Pha) 1 strip Q6HR 02/16/25 00:00 02/16/25 05:37 1 STRIP Insulin Human Regular FOLLOW SLIDING SCALE Q6HR SC 02/16/25 00:00 02/16/25 06:11 16 UNITS Dextrose 50 ml UD IV 02/15/25 22:00 Amino Acids/ Electrolytes/ Dextrose 1,000 ml @ 41 mls/hr DAILY@2200 IV 02/15/25 22:00 02/16/25 21:59 02/15/25 22:25 41 MLS/HR Fat Emulsion Intravenous 50 ml/ Calcium Gluconate 6.4 meq/ Multivitamins 10 ml/Insulin Human Regular 15 units/ Amino Acids/ Dextrose 773.9134 ml @ 32 mls/hr [id number] IV 02/16/25 22:00 02/17/25 21:59 Dextrose 1,000 ml @ 93 mls/hr [id number] IV 02/16/25 11:15 laboratory and microbiology Laboratory Tests 02/16/25 11:20 02/16/25 04:51 Test 02/16/25 11:20 Range/Units Serum Glucose 362 H 74-106 mg/dL Microbiology Date/Time Source Procedure Growth Status 02/05/25 20:41 Blood Blood Culture - Final NO GROWTH AFTER 5 DAYS OF INCUBATION. Complete Problem List/Assessment/Plan Problem List/Assessment/Plan AFEBRILE VSS ABD SOFT DISTENDED BUT LESS TENDER CIRRHOSIS ASCITES R.O SBO CT SCAN ABD PELVIS POSSIBLE PARTIAL SBO HIGH RISK FOR SURGERY KEEP NPO NG IF NO RESOLUTION CONSIDER EMERGENT SURGERY CORRECTION COAGULOPATHY ONGOING RENAL FAILURE BEING CONSIDERED FOR URGENT DIALYSIS NURSE AND FAMILY AT BEDSIDE Plan discussed with: Other My Orders My Orders Orders - MARIANA PENA MD Procedure Category Date Status Time Kub Abdomen Single XY 02/16/25 Resulted View 10:28 Dietary Evaluation Review Comments: 1) Advance to CCHO 60gm + Renal specific 60gm as medically feasible 2) Refer to CDE on DC 3) Continue current plan of care Expected Outcomes/Goals: To meet 75% estimated needs fu 2-3 days MARIANA PENA MD February 16, 2025 12:23
--- NOTE | 2025-02-16 14:07 | DVHPN2 ---
Progress Note Date Seen: February 16, 2025 Resident Creating Document: TYRELL TAVAREZ RESIDENT Has the PT tested + for MRSA If YES, has PT been informed?: No Medical Necessity Reason Pt with a Central, PICC or Fol: No Subjective Review of Systems This is a 69-year-old male patient with past medical history of recurrent admissions due to hepatic encephalopathy secondary to alcoholic liver cirrhosis, hyperammonemia, history of 2 WI 30 years back, CKD 3B, diabetes mellitus type 2 for 15 years, heart failure with preserved ejection fraction at 60%, colonoscopy status post polypectomy in 2018, paroxysmal atrial fibrillation, splenomegaly, Patrizia UTI in 02/2024, pneumonia status post intubation in 2017, hypertension and hyperlipidemia who presented to the ER with the chief complaint of dizziness and abdominal pain for the past 4x days. Patient reports that on 02/02 he was helping his son, and was working outside in the sun when he experienced dizziness but did not experience any fall, syncope, confusion. Patient since worsening abdominal distention, and diffuse lower abdominal pain. Reports last bowel movement was on 02/03, says that his abdomen was bloated and therefore he induced vomiting himself denies nausea or vomiting. Denies disorientation and confusion during the past week. Reports compliance to lactulose 30 daily. Patient is A&O x4, alert and oriented to name, place, time and situation. Last drink was 1996. On arrival to the ER, patient was vitally stable, WBC increased from 16-19, platelets 123 which is chronic. BMP showed sodium 146, now 132, potassium elevated at 5.8, was 4.5 on 02/04. BUN/creatinine went 26/1.7 GFR 42 on 02/04/2025, now 60/4.3, GFR 14. Patient had been anion gap metabolic acidosis. Lactic acid elevated at 2.3. Ammonia level 180, was 78 12/28. Patient was recently hospitalized in this facility on 07/13/2024 and was diagnosed with hepatic encephalopathy and diastolic heart failure exacerbation. He was A&O x4. Ammonia was 93. Past medical history: recurrent admissions due to hepatic encephalopathy secondary to alcoholic liver cirrhosis, hyperammonemia, history of 2 WI 30 years back, CKD 3B, diabetes mellitus type 2, heart failure with preserved ejection fraction at 60%, colonoscopy status post polypectomy in 2019, paroxysmal atrial fibrillation, splenomegaly, UTI, pneumonia status post intubation in 2018, hypertension and hyperlipidemia Past Surgical History: pneumonia status post intubation in 2018 Family History: None Social history: Lives with family, last drink 1986, denies smoking or illicit drug use PCP Dr. Turenr Home medications: Lactulose t.i.d., spironolactone 100 mg, Coreg 6.2 5 mg b.i.d. , glipizide, atorvastatin patient recently stopped taking Sildenafil 100 mg, lisinopril 20 mg, Lasix 40 mg, amlodipine 10 mg, Finerenone in 20 mg, fexofenadine 02/06-Patient seen and examined at the bedside. No acute distress. Abdomen has shifting dullness, distended, hyperactive bowel sounds. 02/07-patient seen and examined at the bedside. Lopez catheter placement is still pending. No I&Os noted. Strict I&Os and Lopez catheter placement ordered again. Patient had a bowel movement earlier today. Bicarbonate increased from 13-17. 1 L D5 with 3 ampules of bicarb ordered. BUN/ creatinine increased to 84/4.9 02/08 - patient seen and examined at the bedside. Had 2 bowel movements. Urine output 1350cc per day, WBC trending down to 14 serum bicarb increased to 22. Overnight, Patient did not get D5 with bicarb 1 L. 02/09 - patient seen and examined at the bedside. Reports feeling better. Had a bowel movement. No suprapubic tenderness. 02/16 - seen and examined in the ICU. Urine output 200 cc. Placed left IJ Darrick catheter, hemodialysis pending. Objective vital signs Vital Sign Date Time Temp Pulse Resp B/P (MAP) Pulse Ox O2 Delivery O2 Flow Rate FiO2 02/16/25 13:16 98.1 73 21 120/64 98.1 02/16/25 12:00 92 Room Air* 0 21 Total Intake and Output 02/15/25 02/15/25 02/16/25 15:00 23:00 07:00 Intake Total 625 ml 874 ml 1362 ml Output Total 600 ml 335 ml Balance 625 ml 274 ml 1027 ml medications Current Medications Medications Dose Ordered Sig/Tanya Route Start Time Stop Time Status Last Admin Dose Admin Metronidazole 100 ml @ 100 mls/hr Q8HR IV 02/06/25 06:00 02/16/25 06:11 100 MLS/HR Carvedilol 6.25 mg Q12HR PO 02/06/25 10:00 02/14/25 21:27 6.25 MG Rifaximin 550 mg BID PO 02/06/25 10:00 02/14/25 21:27 550 MG Pantoprazole Sodium 40 mg DAILY IV 02/06/25 10:00 02/16/25 09:53 40 MG Ondansetron HCl 4 mg Q4HP PRN IV 02/05/25 22:15 02/16/25 04:44 4 MG Acetaminophen 650 mg Q6HP PRN PO 02/05/25 22:15 02/12/25 03:43 650 MG Docusate Sodium 100 mg BID PO 02/06/25 10:00 02/14/25 21:27 100 MG Lactulose 30 ml Q6HR PO 02/06/25 18:00 02/15/25 05:36 30 ML Ceftriaxone Sodium/Dextrose 50 ml @ 50 mls/hr DAILY@0900 IV 02/07/25 09:00 02/16/25 10:58 50 MLS/HR Morphine Sulfate 2 mg Q4HPRN PRN IV 02/08/25 14:45 02/16/25 12:59 2 MG Amino Acids 0 ml @ 0 mls/hr PER PHARMACY IV 02/15/25 14:00 Diagnostic Test (Pha) 1 strip Q6HR 02/16/25 00:00 02/16/25 12:00 1 STRIP Insulin Human Regular FOLLOW SLIDING SCALE Q6HR SC 02/16/25 00:00 02/16/25 13:02 16 UNITS Dextrose 50 ml UD IV 02/15/25 22:00 Amino Acids/ Electrolytes/ Dextrose 1,000 ml @ 41 mls/hr DAILY@2200 IV 02/15/25 22:00 02/16/25 21:59 02/15/25 22:25 41 MLS/HR Fat Emulsion Intravenous 50 ml/ Calcium Gluconate 4.6 meq/ Multivitamins 10 ml/Insulin Human Regular 15 units/ Amino Acids/ Dextrose 770.0424 ml @ 32 mls/hr Q24H4M IV 02/16/25 22:00 02/17/25 21:59 Dextrose 1,000 ml @ 93 mls/hr [id number] IV 02/16/25 11:15 Examination Patient lying in bed, in no acute distress. Left IJ Darrick cath placed 516 General: Well-built, afebrile, scleral icterus, mucosae are moist Cardiovascular: Regular S1 and S2. No murmurs, gallops or rubs. No JVD elevation. trace bilateral pedal edema Respiratory: Normal B/L air entry on room air. Clear lung sounds on auscultation Abdomen: Soft, suprapubic tenderness, distended, hypoactive bowel sounds, no rebound tenderness, no organomegaly, no masses Genitourinary: Lopez draining clear urine. MSK/skin: Mobilizes 4 limbs. Skin is dry and warm Neurological: No motor, no sensitive deficits, normal speech. Pupils are isocoric and reactive. Psych/Mental Status: A/Ox3 laboratory and microbiology Laboratory Tests 02/16/25 11:20 02/16/25 04:51 Test 02/16/25 11:20 Range/Units Serum Glucose 362 H 74-106 mg/dL Microbiology Date/Time Source Procedure Growth Status 02/05/25 20:41 Blood Blood Culture - Final NO GROWTH AFTER 5 DAYS OF INCUBATION. Complete Labs and/or images reviewed: Labs reviewed by me, Image(s) reviewed by me Problem List/Assessment/Plan Problem List/Assessment/Plan Acute kidney injury, likely prerenal, rule out HRS versus ATN ? Uremic encephalopathy Rule out urinary obstruction Sepsis due to SBO versus ileus Decompensated liver cirrhosis Macrocytic Anemia History of hepatic encephalopathy Hyperkalemia Heart failure with preserved ejection fraction Diabetes mellitus type 2 History of paroxysmal AFib History of pneumonia status and intubation History of WI Hypertension Chronic thrombocytopenia Morbid obesity FENA 0.5 prerenal Urine protein excretion 0.6 g per day Creatinine clearance 10 Small bowel series with Gastrografin shows Contrast is identified within the colon by 4 hours. This represents a delayed small bowel transit time without definite obstruction. Clinical correlation advised. Plan: Given the decreasing urine output, increasing BUN/creatinine. Left IJ Darrick catheter was placed. Hemodialysis pending. Continue Lopez placement until Urology clears. Consider Urology evaluation. Patient has received a total of 8 bags of D5 NS and 2 bags of D5W Bladder scan 02/07 showed 150 cc 02/07- patient did not receive 1 L D5 with 3 ampules of bicarb ordered 02/06- 1 L D5 with 3 amps bicarb and 3 bags of albumin administered Surgical consultation appreciated IR Consulted for Paracentesis, no ascites, preliminary blood culture negative Continue IV antibiotics Lactic acid downtrending 2.1 Surgeon on the case NPO TPN Plan discussed with patient in which all questions have been answered Case discussed with Dr. Goodson Addendum Patient seen and examined, plan discussed with resident. Agree with above, we will follow closely HD today d/w son Plan discussed with: Patient, Son My Orders My Orders Orders - TYRELL TAVAREZ Procedure Category Date Status Time Urine LAB 02/16/25 Logged Protein/Creatinine Urine Sodium LAB 02/16/25 Logged 09:22 Chest Xray 1 View XY 02/16/25 Resulted 10:42 Dietary Evaluation Review Comments: 1) Advance to CCHO 60gm + Renal specific 60gm as medically feasible 2) Refer to CDE on DC 3) Continue current plan of care Expected Outcomes/Goals: To meet 75% estimated needs fu 2-3 days Critical Care Time (mins): 36 TYRELL TAVAREZ February 16, 2025 14:07 MELODY GOODSON MD February 16, 2025 21:07
--- NOTE | 2025-02-16 19:12 | DVHNC2 ---
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 [employer] ([employer]) Indication: Other (For dialysis) Room prepared for procedure: Yes Dry Cure Worker performed hand hygien: Yes Maximal sterile barrier precau: Mask/Eye shield, Sterile gown, Cap, Sterlie gloves, Large sterlie drape Skin Preparation: Chlorhexidine gluconate, Providine iodine Skin preparation completely dr: Yes Insertion site: Left, Internal jugular Central line catheter type: Dialysis non-tunneled Number of lumens: 2 Central line exchanged over a: No Post Assessment: Chest X-Ray, No Pneumothorax Informed consent obtained: Yes Risks/benefits/alt described: Yes Notes Procedure note: . A time out was performed. My hands were washed immediately prior to the procedure. I wore a surgical cap, mask with protective eyewear, full gown and sterile gloves throughout the procedure. The patient was placed in Trendel enburg position. LEFT chest region was prepped using chlorhexidine scrub and draped in sterile fashion using a full drape and sterile probe cover and sterile gel employed. The medial and lateral heads of the sternocleidomastoid muscle were identified as was the carotid pulse. The Internal Jugular vein was identified using the ultrasound. Anesthesia was achieved over the vein using 1% lidocaine. Using real-time out of plane guidance, the introducer needle was inserted into the Internal Jugular vein under direct ultrasound visualization. Venous blood was withdrawn. The syringe was removed and a guidewire was advanced into the introducer needle. The guidewire was visualized in the Internal Jugular Vein by ultrasound. A small incision was made at the skin surface with a scalpel and the introducer needle was exchanged for a dilator over the guidewire. After appropriate dilation was obtained, the dilator was exchanged over the wire for a central venous catheter. The wire was removed and the catheter was sutured at [address] A sterile sorbaview shield was placed over the catheter at the insertion site. The patient tolerated the procedure without any hemodynamic compromise. At time of procedure completion, all ports aspirated and flushed properly. Post-procedure chest x-ray exclude pneumothorax. Estimated blood loss is less than [address] Natarajan Date of Service: February 16, 2025 Billing Provider: MIAN KELLY RESIDENT Common Visit Codes: PROCEDURE ONLY Procedure Codes: 22962-KTFCXW NON-TUNNEL CV CATH ALI,MIAN RESIDENT February 16, 2025 19:12 JOVON NATARAJAN MD February 16, 2025 19:18
--- NOTE | 2025-02-16 19:17 | DVHPN2 ---
Subjective The patient was transferred to the [facility] last night His ammonia level was normal He had a CT scan of the abdomen which showed a bowel obstruction and therefore a Dr. Lesia Herzog came and saw him and he also saw him this morning Laboratory studies were done showed elevated INR and thrombocytopenia and worsening renal function and therefore Nephrology was contacted again and he had a Darrick catheter placed for dialysis which is scheduled for today Dr. Lesia Herzog is contemplating doing surgery on the patient however because of his coagulopathy and renal failure and overall condition he is watching the patient very closely and he was ordered to be transfused with fresh frozen plasma and was given vitamin K in the meantime and was started on TPN and continue IV fluids Changes from previous H/P or p: Changes Objective Vitals Vital Signs Date Time Temp Pulse Resp B/P (MAP) Pulse Ox O2 Delivery O2 Flow Rate FiO2 02/16/25 18:00 72 02/16/25 18:00 19 99 Room Air* 0 21 02/16/25 15:15 02/16/25 13:57 98.3 98.3 Intake/Output Intake and Output 02/16/25 07:00 Intake Total 3002 ml Output Total 935 ml Balance 2067 ml Intake Oral 0 ml IV Total 3002 ml Output Urine Total 825 ml Gastric Drainage Total 110 ml General Appearance: Alert, Oriented X3, Cooperative, No acute distress Lungs: Clear to auscultation Cardiovascular: Regular rate, Normal S1, Normal S2 Abdomen: Normal bowel sounds, Other (Distended and generalized tenderness) Extremities: Other (1+ edema bilaterally in the lower extremities) Medications Current Medications Medications Dose Ordered Sig/Tanya Route Start Time Stop Time Status Last Admin Dose Admin Metronidazole 100 ml @ 100 mls/hr Q8HR IV 02/06/25 06:00 02/16/25 14:19 100 MLS/HR Carvedilol 6.25 mg Q12HR PO 02/06/25 10:00 02/14/25 21:27 6.25 MG Rifaximin 550 mg BID PO 02/06/25 10:00 02/14/25 21:27 550 MG Pantoprazole Sodium 40 mg DAILY IV 02/06/25 10:00 02/16/25 09:53 40 MG Ondansetron HCl 4 mg Q4HP PRN IV 02/05/25 22:15 02/16/25 04:44 4 MG Acetaminophen 650 mg Q6HP PRN PO 02/05/25 22:15 02/12/25 03:43 650 MG Docusate Sodium 100 mg BID PO 02/06/25 10:00 02/14/25 21:27 100 MG Lactulose 30 ml Q6HR PO 02/06/25 18:00 02/15/25 05:36 30 ML Ceftriaxone Sodium/Dextrose 50 ml @ 50 mls/hr DAILY@0900 IV 02/07/25 09:00 02/16/25 10:58 50 MLS/HR Morphine Sulfate 2 mg Q4HPRN PRN IV 02/08/25 14:45 02/16/25 12:59 2 MG Amino Acids 0 ml @ 0 mls/hr PER PHARMACY IV 02/15/25 14:00 Diagnostic Test (Pha) 1 strip Q6HR 02/16/25 00:00 02/16/25 17:13 1 STRIP Insulin Human Regular FOLLOW SLIDING SCALE Q6HR SC 02/16/25 00:00 02/16/25 17:11 8 UNITS Dextrose 50 ml UD IV 02/15/25 22:00 Amino Acids/ Electrolytes/ Dextrose 1,000 ml @ 41 mls/hr DAILY@2200 IV 02/15/25 22:00 02/16/25 21:59 02/15/25 22:25 41 MLS/HR Fat Emulsion Intravenous 50 ml/ Calcium Gluconate 4.6 meq/ Multivitamins 10 ml/Insulin Human Regular 15 units/ Amino Acids/ Dextrose 770.0424 ml @ 32 mls/hr Q24H4M IV 02/16/25 22:00 02/17/25 21:59 Dextrose 1,000 ml @ 93 mls/hr [id number] IV 02/16/25 11:15 02/16/25 11:15 93 MLS/HR Laboratory Results Laboratory Tests 02/16/25 04:51 02/16/25 11:20 Chemistry Test 02/16/25 04:51 02/16/25 11:20 Albumin 2.3 g/dL (3.2-4.8) L 2.7 g/dL (3.2-4.8) L Calcium Level 7.4 mg/dL (8.7-10.4) L 7.7 mg/dL (8.7-10.4) L Magnesium Level 2.8 mg/dL (1.6-2.6) H 2.7 mg/dL (1.6-2.6) H Phosphorus Level 6.1 mg/dL (2.4-5.1) H Total Protein 4.2 g/dL (5.7-8.2) L 4.6 g/dL (5.7-8.2) L Coagulation Test 02/16/25 04:51 Prothrombin Time 22.3 sec (9.3-11.8) H Prothrombin Time INR 2.28 (0.9-1.15) H Activated Partial Thromboplast Time 64.6 SEC (24.5-34.5) H Lipid panel Test 02/16/25 04:51 Lipase 85 U/L (12-53) H Triglycerides Level 48 mg/dL (< 150) LFT Test 02/16/25 04:51 02/16/25 11:20 Alanine Aminotransferase (ALT) 27 U/L (7-40) 27 U/L (7-40) Alkaline Phosphatase 70 U/L (46-116) 68 U/L (46-116) Aspartate Amino Transferase (AST) 22 U/L (13-40) 22 U/L (13-40) Total Bilirubin 3.2 mg/dL (0.2-1.0) H 3.5 mg/dL (0.2-1.0) H Urinalysis Test 02/07/25 01:30 Urine Color Yellow (Yellow) Urine Clarity Clear (Clear) Urine pH 5.0 (5.0-9.0) Urine Specific [place] 1.021 (1.001-1.035) Urine Protein 1+ (Negative) H Urine Ketones Trace (Negative) Urine Blood 2+ /uL (Negative) H Urine Nitrite Negative (Negative) Urine Bilirubin Negative (Negative) Urine Urobilinogen Normal mg/dL (Negative) Urine Leukocyte Esterase Negative /uL (Negative) Urine RBC 1 /hpf (0 - 3) Urine Microscopic WBC 3 /HPF (0-3) Urine Squamous Epithelial Cells Few /hpf (<5) Urine Bacteria None seen /hpf (None Seen) Urine Hyaline Casts Few /lpf (0 - 2) Urine Mucus Few (None Seen) Urine Yeast (Budding) Occasional /hpf (None Urine Creatinine 102.35 mg/dL (30.0-125.0) Urine Protein/Creatinine Ratio 0.61 Urine Sodium 15 mmol/L (40-220) L Urine Glucose 2+ mg/dL (Normal) H Urine Total Protein 62.1 mg/dL (1-14) H Microbiology Microbiology Date/Time Source Procedure Growth Status 02/05/25 20:41 Blood Blood Culture - Final NO GROWTH AFTER 5 DAYS OF INCUBATION. Complete Assessment/Plan Assessment/Plan Abdominal pain Rule out bowel obstructionsurgical Intractable nausea and vomiting Constipation Hepatic encephalopathy Liver cirrhosis Possible hepatorenal syndrome Acute kidney injury/chronic kidney disease Thrombocytopenia Leukocytosis Type 2 diabetes Hypertension Mixed hyperlipidemia Ascites Lactic acidosis Hyperkalemia Hyponatremia Moderate protein malnutrition Plan Keep NPO Surgical consult Continue lactulose Continue rifaximin GI consult Nephrology consult Paracentesis was attempted, not enough ascites fluids for the procedure to be done Hepatorenal syndrome? : Give albumin IV IV ceftriaxone and Flagyl empirically Full code Advance directives discussed for 20 minute 02/07/2025: Hyponatremia Hyperkalemia Acute kidney injury: Worsening, nephrology on board Metabolic acidosis Chronic kidney disease Liver cirrhosis Hepatic encephalopathy: Improved continue lactulose Abdominal distention and pain: Surgical consult pending 02/08/2025: Small bowel series today to rule out bowel obstruction GI is on board Nephrology is on board Kidney function is improving with a creatinine of 3.0 and carbon dioxide of 22 today Monitor closely 02/09/25: Abdominal pain, Vomiting SBO vs Ileus: NPO, NG tube to suction, surgical consult Urinary retention: Lopez IV fluids IV antibiotics 02/10/2025: Continue NG tube suction Surgical consult Continue NPO Lopez catheter IV fluids IV antibiotics Monitor closely 02/11/2025: Continue the current management with NG tube suction and NPO IV antibiotics IV fluids Awaiting surgical consult Monitor the patient closely The rest of the management will depend on the hospital course 02/12/2025: Continue the NG tube suction Surgical consult is pending I discussed the case with Dr. Luna who will see the patient today Kidney function has improved significantly, creatinine is down to 1.5 Liver cirrhosis Hepatic encephalopathy: Stable 02/13/2025: Continue NG tube suction Surgical Service Dr. Luna is following IV fluids Monitor the kidney function Hepatic encephalopathy: Alert and oriented, monitor Monitor closely JANET Hypernatremia Hyperkalemia 02/14/2025: Abdominal pain and distention, small bowel obstruction versus ileus: Small bowel series done today, pending Consult general surgery, Dr. Lesia Herzog Continue NPO and NG tube suction for now Continue IV fluids Acute kidney injury: Liver cirrhosis Hypernatremia Hyperkalemia 02/15/2025: The patient appears to be going septic with a altered level of consciousness and worsening kidney function and hyperkalemia and hypernatremia The patient does not have any bowel sounds The patient is not having any bowel movements KUB and CT scan of the abdomen and pelvis showed possible bowel obstruction Transfer the patient to the [facility] Keep NPO Start tPA NG tube to suction General surgery is following, Dr. Lesia Herzog is considering surgery Very high risk for surgery due to liver cirrhosis and kidney failure and coagulopathy and thrombocytopenia Coagulopathy due to liver cirrhosis Thrombocytopenia due to sepsis and liver cirrhosis Possible hepatorenal syndrome Give albumin IV Discussed with the son at the bedside, explained the poor prognosis, explained the comorbidities including liver cirrhosis and kidney failure, explained that if the patient needs surgery it would be high risk Continue IV fluids Nephrology consult is on board GI is also seeing the patient Give Vitamin K and fresh frozen plasma In case he needs surgery, he will need fresh frozen plasma JANET: D5W IV until TPN is started Guarded prognosis Full code 02/16/2025: Transfuse 2 units fresh frozen plasma Vitamin K 10 mg IV Hemodialysis to be done today Continue IV antibiotics Continue IV fluids TPN Surgical consult is following Nephrology Service is following GI is also following Discussed with the his son at the bedside, questions answered Guarded prognosis The rest of the management will depend on the hospital course Plan discussed with: Patient, Son My Orders Orders - JOVON LOPEZ MD Procedure Category Date Status Time Amino Acid PHA 02/16/25 In Process Infusion... W/Fat 22:00 Phosphorus LAB 02/17/25 Verified 05:00 Tpn Per Pharmacy JANET 02/16/25 In Process 22:00 D5w 5% (Dextrose 5%) PHA 02/16/25 In Process 11:15 Comprehensive LAB 02/17/25 Verified Metabolic Panel 05:00 Magnesium LAB 02/17/25 Verified 05:00 Date of Service: February 16, 2025 Billing Provider: JOVON LOPEZ MD Common Visit Codes: [id number] INP/OBS CARE(HIGH) JOVON LOPEZ MD February 16, 2025 19:17
[2025-02-16] MEDS: FAT EMULSION IV NR (22:19)
[2025-02-16] MEDS: CALCIUM GLUC IV NR (22:19)
[2025-02-16] MEDS: [UNRECOGNIZED DRUG - OTHER] IV NR (22:19)
[2025-02-17] VITALS (92 sets, daily range): BP systolic 81–123; BP diastolic 39–73; PULSE 76–99; RESP 12–92; TEMP 99.7–100.2; O2SAT 91–97
[2025-02-17 06:53] LABS: Basophils # (auto) 0 10 ^3/uL (0-0.2); Basophils % (auto) 0.2 % (0.0-2.0); Eosinophils # (auto) 0.1 10 ^3/uL (0-0.8); Eosinophils % (auto) 0.7 % (0.0-7.0); Hematocrit 34.6 % (41.0-53.0); Hemoglobin 11.5 g/dL (13.5-17.5); Lymphocytes # (auto) 0.5 10 ^3/uL (0.4-5.4); Lymphocytes % (auto) 4.7 % (10.0-50.0); Mean Corpuscular Hemoglobin 32.7 pg (28.0-32.0); Mean Corpuscular Hgb Conc. 33.1 g/dL (32.0-36.0); Mean Corpuscular Volume 98.6 fL (80.0-100.0); Monocytes # (auto) 0.4 10 ^3/uL (0-1.3); Monocytes % (auto) 3.1 % (0.0-12.0); Neutrophils # (auto) 10.4 10 ^3/uL (1.6-8.6); Neutrophils % (auto) 91.3 % (37.0-80.0); Nucleated Red Blood Cells % 0.6 %; Platelet Count (auto) 83 10^3/uL (140-450); Red Blood Cells 3.51 10^6/uL (4.5-5.90); White Blood Cell 11.4 10^3/uL (4.4-10.8)
[2025-02-17 06:57] LABS: INR 1.84 (0.9-1.15); Partial Thromboplastin Time 55.5 SEC (24.5-34.5); Prothrombin Time 18.4 sec (9.3-11.8)
[2025-02-17 07:03] LABS: Alanine Aminotransferase 20 U/L (7-40); Alkaline Phosphatase 76 U/L (46-116); Anion Gap 11 (5-15); Aspartate Aminotransferase 24 U/L (13-40); BUN/Creatinine Ratio 30.5 (10.0-20.0); Magnesium 2.4 mg/dL (1.6-2.6); Phosphorus 4.2 mg/dL (2.4-5.1); Potassium 4.6 mmol/L (3.5-5.1); Sodium 137 mmol/L (136-145)
[2025-02-17 07:32] LABS: Carbon Dioxide 18 mmol/L (20-31); Chloride 108 mmol/L (98-107); Glucose 277 mg/dL (74-106)
[2025-02-17 07:33] LABS: Albumin 2.6 g/dL (3.2-4.8); Bilirubin, Total 5.4 mg/dL (0.2-1.0); Blood Urea Nitrogen 104 mg/dL (9-23); Total Protein 4.7 g/dL (5.7-8.2)
--- NOTE | 2025-02-17 09:41 | DVHPN2 ---
Progress Note Date Seen: February 17, 2025 Has the PT tested + for MRSA If YES, has PT been informed?: No Medical Necessity Reason Pt with a Central, PICC or Fol: No Objective vital signs Vital Sign Date Time Temp Pulse Resp B/P (MAP) Pulse Ox O2 Delivery O2 Flow Rate FiO2 02/17/25 09:06 83 19 115/54 02/17/25 07:45 94 02/17/25 06:00 Room Air* 0 21 02/17/25 04:00 99.7 99.7 Total Intake and Output 02/16/25 02/16/25 02/17/25 15:00 23:00 07:00 Intake Total 750 ml 1106.8 ml 975 ml Output Total 750 ml 150 ml Balance 750 ml 356.8 ml 825 ml medications Current Medications Medications Dose Ordered Sig/Tanya Route Start Time Stop Time Status Last Admin Dose Admin Metronidazole 100 ml @ 100 mls/hr Q8HR IV 02/06/25 06:00 02/17/25 06:07 100 MLS/HR Carvedilol 6.25 mg Q12HR PO 02/06/25 10:00 02/14/25 21:27 6.25 MG Rifaximin 550 mg BID PO 02/06/25 10:00 02/14/25 21:27 550 MG Pantoprazole Sodium 40 mg DAILY IV 02/06/25 10:00 02/17/25 09:35 40 MG Ondansetron HCl 4 mg Q4HP PRN IV 02/05/25 22:15 02/17/25 01:36 4 MG Acetaminophen 650 mg Q6HP PRN PO 02/05/25 22:15 02/12/25 03:43 650 MG Docusate Sodium 100 mg BID PO 02/06/25 10:00 02/14/25 21:27 100 MG Lactulose 30 ml Q6HR PO 02/06/25 18:00 02/15/25 05:36 30 ML Ceftriaxone Sodium/Dextrose 50 ml @ 50 mls/hr DAILY@0900 IV 02/07/25 09:00 02/17/25 09:35 50 MLS/HR Morphine Sulfate 2 mg Q4HPRN PRN IV 02/08/25 14:45 02/17/25 09:06 2 MG Amino Acids 0 ml @ 0 mls/hr PER PHARMACY IV 02/15/25 14:00 Diagnostic Test (Pha) 1 strip Q6HR 02/16/25 00:00 02/17/25 06:01 1 STRIP Insulin Human Regular FOLLOW SLIDING SCALE Q6HR SC 02/16/25 00:00 02/17/25 06:08 12 UNITS Dextrose 50 ml UD IV 02/15/25 22:00 Fat Emulsion Intravenous 50 ml/ Calcium Gluconate 4.6 meq/ Multivitamins 10 ml/Insulin Human Regular 15 units/ Amino Acids/ Dextrose 770.0424 ml @ 32 mls/hr Q24H4M IV 02/16/25 22:00 02/17/25 21:59 02/16/25 22:19 32 MLS/HR Dextrose 1,000 ml @ 93 mls/hr [id number] IV 02/16/25 11:15 02/17/25 04:30 93 MLS/HR laboratory and microbiology Laboratory Tests 02/17/25 04:22 Test 02/17/25 04:22 Range/Units Serum Glucose 277 H 74-106 mg/dL Microbiology Date/Time Source Procedure Growth Status 02/05/25 20:41 Blood Blood Culture - Final NO GROWTH AFTER 5 DAYS OF INCUBATION. Complete Problem List/Assessment/Plan Problem List/Assessment/Plan AFEBRILE VSS ABD SOFT DISTENDED FROM ASCITES LESS TENDER BM X 3 SBO ILEUS RESOLVING WBC TRENDING DOWN HIGH RISK FOR SURGERY KEEP NPO NG RENAL FAILURE BUN/CR IMPROVING NURSE AND FAMILY AT BEDSIDE CONTINUE CLOSE OBSERVATION Plan discussed with: Patient My Orders My Orders Orders - MARIANA PENA MD Procedure Category Date Status Time Kub Abdomen Single XY 02/16/25 Resulted View 10:28 Dietary Evaluation Review Comments: 1) [facility] 60gm + Renal specific 60gm as medically feasible 2) Refer to CDE on DC 3) Continue current plan of care Expected Outcomes/Goals: To meet 75% estimated needs fu 2-3 days MARIANA PENA MD February 17, 2025 09:41
--- NOTE | 2025-02-17 15:32 | DVHPN2 ---
Progress Note Date Seen: February 17, 2025 Has the PT tested + for MRSA If YES, has PT been informed?: No Medical Necessity Reason Pt with a Central, PICC or Fol: No Subjective Patient reports: Feels better (Still has abdominal pain) Review of Systems: Deferred Objective vital signs Vital Sign Date Time Temp Pulse Resp B/P (MAP) Pulse Ox O2 Delivery O2 Flow Rate FiO2 02/17/25 13:34 84 23 106/50 02/17/25 13:30 94 02/17/25 12:00 Room Air* 0 21 02/17/25 04:00 99.7 99.7 Total Intake and Output 02/16/25 02/16/25 02/17/25 15:00 23:00 07:00 Intake Total 750 ml 1106.8 ml 1200 ml Output Total 750 ml 150 ml Balance 750 ml 356.8 ml 1050 ml medications Current Medications Medications Dose Ordered Sig/Tanya Route Start Time Stop Time Status Last Admin Dose Admin Metronidazole 100 ml @ 100 mls/hr Q8HR IV 02/06/25 06:00 02/17/25 13:32 100 MLS/HR Carvedilol 6.25 mg Q12HR PO 02/06/25 10:00 02/14/25 21:27 6.25 MG Pantoprazole Sodium 40 mg DAILY IV 02/06/25 10:00 02/17/25 09:35 40 MG Ondansetron HCl 4 mg Q4HP PRN IV 02/05/25 22:15 02/17/25 01:36 4 MG Acetaminophen 650 mg Q6HP PRN PO 02/05/25 22:15 02/12/25 03:43 650 MG Docusate Sodium 100 mg BID PO 02/06/25 10:00 02/14/25 21:27 100 MG Lactulose 30 ml Q6HR PO 02/06/25 18:00 02/15/25 05:36 30 ML Ceftriaxone Sodium/Dextrose 50 ml @ 50 mls/hr DAILY@0900 IV 02/07/25 09:00 02/17/25 09:35 50 MLS/HR Morphine Sulfate 2 mg Q4HPRN PRN IV 02/08/25 14:45 02/17/25 13:34 2 MG Amino Acids 0 ml @ 0 mls/hr PER PHARMACY IV 02/15/25 14:00 Diagnostic Test (Pha) 1 strip Q6HR 02/16/25 00:00 02/17/25 11:29 1 STRIP Insulin Human Regular FOLLOW SLIDING SCALE Q6HR SC 02/16/25 00:00 02/17/25 11:29 12 UNITS Dextrose 50 ml UD IV 02/15/25 22:00 Fat Emulsion Intravenous 50 ml/ Calcium Gluconate 4.6 meq/ Multivitamins 10 ml/Insulin Human Regular 15 units/ Amino Acids/ Dextrose 770.0424 ml @ 32 mls/hr Q24H4M IV 02/16/25 22:00 02/17/25 21:59 02/16/25 22:19 32 MLS/HR Dextrose 1,000 ml @ 93 mls/hr [id number] IV 02/16/25 11:15 02/17/25 14:31 93 MLS/HR Fat Emulsion Intravenous 100 ml/Sodium Acetate 60 meq/Calcium Gluconate 2.3 meq/ Multivitamins 10 ml/Insulin Human Regular 22 units/ Amino Acids/ Dextrose 1,045.1662 ml @ 43 mls/hr [id number] IV 02/17/25 22:00 02/18/25 21:59 Examination: GENERAL:Normal, ABDOMEN:Abnormal, SKIN:Abnormal, NEURO:Normal laboratory and microbiology Laboratory Tests 02/17/25 04:22 Test 02/17/25 04:22 Range/Units Serum Glucose 277 H 74-106 mg/dL Microbiology Date/Time Source Procedure Growth Status 02/05/25 20:41 Blood Blood Culture - Final NO GROWTH AFTER 5 DAYS OF INCUBATION. Complete Problem List/Assessment/Plan Problem List/Assessment/Plan Acute kidney injury, likely hemodynamic mediated etiology plus or minus ATN needing HD Uremic encephalopathy Sepsis due to SBO versus ileus Decompensated liver cirrhosis Macrocytic Anemia History of hepatic encephalopathy Hyperkalemia Heart failure with preserved ejection fraction Diabetes mellitus type 2 History of paroxysmal AFib History of pneumonia status and intubation History of [place] Hypertension Chronic thrombocytopenia Morbid obesity Recommendations Hemodialysis initiated 02/16 Next dialysis will be on Wednesday based on staffing vs wednesday Discussed with daughter bedside Surgical consult follow-up Plan discussed with: Patient, Daughter My Orders My Orders Orders - MELODY GOODSON MD Procedure Category Date Status Time Hepatitis B Surface LAB 02/16/25 In Process Antigen 16:28 Hemodialysis Orders ORDERS 02/17/25 Transmitted 09:04 Dietary Evaluation Review Comments: 1) Advance to [facility] 60gm + Renal specific 60gm as medically feasible 2) Refer to CDE on DC 3) Continue current plan of care Expected Outcomes/Goals: To meet 75% estimated needs fu 2-3 days MELODY GOODSON MD February 17, 2025 15:32
--- NOTE | 2025-02-17 17:52 | DVHPN2 ---
Subjective More stable today No vasopressors White count is better at 11.4 Hemoglobin is stable Platelets are lower at 83 Creatinine 3.4 He is having bowel movements Abdomen is softer than before Changes from previous H/P or p: Changes Objective Vitals Vital Signs Date Time Temp Pulse Resp B/P (MAP) Pulse Ox O2 Delivery O2 Flow Rate FiO2 02/17/25 17:00 90 25 123/73 (90) 97 02/17/25 16:00 Room Air* 0 21 02/17/25 04:00 99.7 99.7 Intake/Output Intake and Output 02/17/25 07:00 Intake Total 3056.8 ml Output Total 900 ml Balance 2156.8 ml IV Total 2436.8 ml Blood Product 620 ml Output Urine Total 625 ml Gastric Drainage Total 275 ml # Bowel Movements 2 General Appearance: Alert, Oriented X3, Cooperative, No acute distress Lungs: Clear to auscultation Cardiovascular: Regular rate, Normal S1, Normal S2 Abdomen: Normal bowel sounds, Other (Distended and generalized tenderness) Extremities: Other (1+ edema bilaterally in the lower extremities) Medications Current Medications Medications Dose Ordered Sig/Tanya Route Start Time Stop Time Status Last Admin Dose Admin Metronidazole 100 ml @ 100 mls/hr Q8HR IV 02/06/25 06:00 02/17/25 13:32 100 MLS/HR Carvedilol 6.25 mg Q12HR PO 02/06/25 10:00 02/14/25 21:27 6.25 MG Pantoprazole Sodium 40 mg DAILY IV 02/06/25 10:00 02/17/25 09:35 40 MG Ondansetron HCl 4 mg Q4HP PRN IV 02/05/25 22:15 02/17/25 01:36 4 MG Acetaminophen 650 mg Q6HP PRN PO 02/05/25 22:15 02/12/25 03:43 650 MG Docusate Sodium 100 mg BID PO 02/06/25 10:00 02/14/25 21:27 100 MG Lactulose 30 ml Q6HR PO 02/06/25 18:00 02/15/25 05:36 30 ML Ceftriaxone Sodium/Dextrose 50 ml @ 50 mls/hr DAILY@0900 IV 02/07/25 09:00 02/17/25 09:35 50 MLS/HR Amino Acids 0 ml @ 0 mls/hr PER PHARMACY IV 5/15/25 14:00 Diagnostic Test (Pha) 1 strip Q6HR 02/16/25 00:00 02/17/25 11:29 1 STRIP Insulin Human Regular FOLLOW SLIDING SCALE Q6HR SC 02/16/25 00:00 02/17/25 11:29 12 UNITS Dextrose 50 ml UD IV 02/15/25 22:00 Fat Emulsion Intravenous 50 ml/ Calcium Gluconate 4.6 meq/ Multivitamins 10 ml/Insulin Human Regular 15 units/ Amino Acids/ Dextrose 770.0424 ml @ 32 mls/hr Q24H4M IV 02/16/25 22:00 02/17/25 21:59 02/16/25 22:19 32 MLS/HR Dextrose 1,000 ml @ 93 mls/hr [id number] IV 02/16/25 11:15 02/17/25 14:31 93 MLS/HR Fat Emulsion Intravenous 100 ml/Sodium Acetate 60 meq/Calcium Gluconate 2.3 meq/ Multivitamins 10 ml/Insulin Human Regular 22 units/ Amino Acids/ Dextrose 1,045.1662 ml @ 43 mls/hr [id number] IV 02/17/25 22:00 02/18/25 21:59 Laboratory Results Laboratory Tests 02/17/25 04:22 Chemistry Test 02/17/25 04:22 Albumin 2.6 g/dL (3.2-4.8) L Calcium Level 8.0 mg/dL (8.7-10.4) L Magnesium Level 2.4 mg/dL (1.6-2.6) Phosphorus Level 4.2 mg/dL (2.4-5.1) Total Protein 4.7 g/dL (5.7-8.2) L Coagulation Test 02/17/25 04:22 Prothrombin Time 18.4 sec (9.3-11.8) H Prothrombin Time INR 1.84 (0.9-1.15) H Activated Partial Thromboplast Time 55.5 SEC (24.5-34.5) H LFT Test 02/17/25 04:22 Alanine Aminotransferase (ALT) 20 U/L (7-40) Alkaline Phosphatase 76 U/L (46-116) Aspartate Amino Transferase (AST) 24 U/L (13-40) Total Bilirubin 5.4 mg/dL (0.2-1.0) H Urinalysis Test 02/07/25 01:30 Urine Color Yellow (Yellow) Urine Clarity Clear (Clear) Urine pH 5.0 (5.0-9.0) Urine Specific [place] 1.021 (1.001-1.035) Urine Protein 1+ (Negative) H Urine Ketones Trace (Negative) Urine Blood 2+ /uL (Negative) H Urine Nitrite Negative (Negative) Urine Bilirubin Negative (Negative) Urine Urobilinogen Normal mg/dL (Negative) Urine Leukocyte Esterase Negative /uL (Negative) Urine RBC 1 /hpf (0 - 3) Urine Microscopic WBC 3 /HPF (0-3) Urine Squamous Epithelial Cells Few /hpf (<5) Urine Bacteria None seen /hpf (None Seen) Urine Hyaline Casts Few /lpf (0 - 2) Urine Mucus Few (None Seen) Urine Yeast (Budding) Occasional /hpf (None Urine Creatinine 102.35 mg/dL (30.0-125.0) Urine Protein/Creatinine Ratio 0.61 Urine Sodium 15 mmol/L (40-220) L Urine Glucose 2+ mg/dL (Normal) H Urine Total Protein 62.1 mg/dL (1-14) H Microbiology Microbiology Date/Time Source Procedure Growth Status 02/05/25 20:41 Blood Blood Culture - Final NO GROWTH AFTER 5 DAYS OF INCUBATION. Complete Assessment/Plan Assessment/Plan Abdominal pain Rule out bowel obstructionsurgical Intractable nausea and vomiting Constipation Hepatic encephalopathy Liver cirrhosis Possible hepatorenal syndrome Acute kidney injury/chronic kidney disease Thrombocytopenia Leukocytosis Type 2 diabetes Hypertension Mixed hyperlipidemia Ascites Lactic acidosis Hyperkalemia Hyponatremia Moderate protein malnutrition Plan Keep NPO Surgical consult Continue lactulose Continue rifaximin GI consult Nephrology consult Paracentesis was attempted, not enough ascites fluids for the procedure to be done Hepatorenal syndrome? : Give albumin IV IV ceftriaxone and Flagyl empirically Full code Advance directives discussed for 20 minute 02/07/2025: Hyponatremia Hyperkalemia Acute kidney injury: Worsening, nephrology on board Metabolic acidosis Chronic kidney disease Liver cirrhosis Hepatic encephalopathy: Improved continue lactulose Abdominal distention and pain: Surgical consult pending 02/08/2025: Small bowel series today to rule out bowel obstruction GI is on board Nephrology is on board Kidney function is improving with a creatinine of 3.0 and carbon dioxide of 22 today Monitor closely 02/09/25: Abdominal pain, Vomiting SBO vs Ileus: NPO, NG tube to suction, surgical consult Urinary retention: Lopez IV fluids IV antibiotics 02/10/2025: Continue NG tube suction Surgical consult Continue NPO Lopez catheter IV fluids IV antibiotics Monitor closely 02/11/2025: Continue the current management with NG tube suction and NPO IV antibiotics IV fluids Awaiting surgical consult Monitor the patient closely The rest of the management will depend on the hospital course 02/12/2025: Continue the NG tube suction Surgical consult is pending I discussed the case with Dr. Luna who will see the patient today Kidney function has improved significantly, creatinine is down to 1.5 Liver cirrhosis Hepatic encephalopathy: Stable 02/13/2025: Continue NG tube suction Surgical Service Dr. Luna is following IV fluids Monitor the kidney function Hepatic encephalopathy: Alert and oriented, monitor Monitor closely JANET Hypernatremia Hyperkalemia 02/14/2025: Abdominal pain and distention, small bowel obstruction versus ileus: Small bowel series done today, pending Consult general surgery, Dr. Lesia Herzog Continue NPO and NG tube suction for now Continue IV fluids Acute kidney injury: Liver cirrhosis Hypernatremia Hyperkalemia 02/15/2025: The patient appears to be going septic with a altered level of consciousness and worsening kidney function and hyperkalemia and hypernatremia The patient does not have any bowel sounds The patient is not having any bowel movements KUB and CT scan of the abdomen and pelvis showed possible bowel obstruction Transfer the patient to the OU Keep NPO Start tPA NG tube to suction General surgery is following, Dr. Lesia Herzog is considering surgery Very high risk for surgery due to liver cirrhosis and kidney failure and coagulopathy and thrombocytopenia Coagulopathy due to liver cirrhosis Thrombocytopenia due to sepsis and liver cirrhosis Possible hepatorenal syndrome Give albumin IV Discussed with the son at the bedside, explained the poor prognosis, explained the comorbidities including liver cirrhosis and kidney failure, explained that if the patient needs surgery it would be high risk Continue IV fluids Nephrology consult is on board GI is also seeing the patient Give Vitamin K and fresh frozen plasma In case he needs surgery, he will need fresh frozen plasma JANET: D5W IV until TPN is started Guarded prognosis Full code 02/16/2025: Transfuse 2 units fresh frozen plasma Vitamin K 10 mg IV Hemodialysis to be done today Continue IV antibiotics Continue IV fluids TPN Surgical consult is following Nephrology Service is following GI is also following Discussed with the his son at the bedside, questions answered Guarded prognosis The rest of the management will depend on the hospital course 02/17/2025: Continue NPO Continue NG tube suction IV antibiotics Rocephin and Flagyl TPN per pharmacy Surgical consultation is following the patient Nephrology for the kidney failure Dialysis per Nephrology Monitor closely Discussed with the family at the bedside Plan discussed with: Patient My Orders Orders - JOVON LOPEZ MD Procedure Category Date Status Time Amino Acid PHA 02/17/25 In Process Infusion... W/Fat 22:00 Comprehensive LAB 02/18/25 Verified Metabolic Panel 04:00 Magnesium LAB 02/18/25 Verified 04:00 Phosphorus LAB 02/18/25 Verified 04:00 Tpn Per Pharmacy JANET 02/17/25 In Process 22:00 Date of Service: February 17, 2025 Billing Provider: JOVON LOPEZ MD Common Visit Codes: [id number] INP/OBS CARE(HIGH) JOVON LOPEZ MD February 17, 2025 17:52
[2025-02-17] MEDS: HYDROmorphone HCL 2 MG/ML VL/or syr IV PRN (18:25)
[2025-02-17] MEDS: TPN PER PHARMACY IV NR (22:03)
[2025-02-18] VITALS (91 sets, daily range): BP systolic 77–130; BP diastolic 35–82; PULSE 74–136; RESP 16–36; TEMP 98.1–99.2; O2SAT 90–97
[2025-02-18] MEDS: TPN PER PHARMACY IV NR (02:57)
[2025-02-18] MEDS: AMIODARONE BOLUS KIT 100 ML IV ONE ×2 (04:51→05:00)
[2025-02-18] MEDS: AMIODARONE 360mg/200mL PREMIX 200 ML IV ONE ×2 (05:00→05:01)
[2025-02-18 05:19] LABS: Basophils # (auto) 0 10 ^3/uL (0-0.2); Basophils % (auto) 0.2 % (0.0-2.0); Eosinophils # (auto) 0 10 ^3/uL (0-0.8); Eosinophils % (auto) 0.1 % (0.0-7.0); Hematocrit 36.4 % (41.0-53.0); Hemoglobin 12.2 g/dL (13.5-17.5); Lymphocytes # (auto) 0.4 10 ^3/uL (0.4-5.4); Lymphocytes % (auto) 3.2 % (10.0-50.0); Mean Corpuscular Hemoglobin 32.8 pg (28.0-32.0); Mean Corpuscular Hgb Conc. 33.6 g/dL (32.0-36.0); Mean Corpuscular Volume 97.8 fL (80.0-100.0); Monocytes # (auto) 0.3 10 ^3/uL (0-1.3); Monocytes % (auto) 2.4 % (0.0-12.0); Neutrophils # (auto) 12.8 10 ^3/uL (1.6-8.6); Neutrophils % (auto) 94.1 % (37.0-80.0); Nucleated Red Blood Cells % 0.4 %; Platelet Count (auto) 79 10^3/uL (140-450); Red Blood Cells 3.72 10^6/uL (4.5-5.90); Red Cell Distribution Width 21.1 % (11.8-14.3); White Blood Cell 13.6 10^3/uL (4.4-10.8)
[2025-02-18 05:32] LABS: INR 2.09 (0.9-1.15); Partial Thromboplastin Time 66.9 SEC (24.5-34.5); Prothrombin Time 20.6 sec (9.3-11.8)
[2025-02-18 05:38] LABS: Alanine Aminotransferase 19 U/L (7-40); Alkaline Phosphatase 83 U/L (46-116); Anion Gap 13 (5-15); Aspartate Aminotransferase 27 U/L (13-40); Chloride 101 mmol/L (98-107); Magnesium 2.1 mg/dL (1.6-2.6); Phosphorus 3.5 mg/dL (2.4-5.1); Potassium 4.4 mmol/L (3.5-5.1)
[2025-02-18 05:42] LABS: Albumin 2.3 g/dL (3.2-4.8); BUN/Creatinine Ratio 26.7 (10.0-20.0); Bilirubin, Total 9.6 mg/dL (0.2-1.0); Carbon Dioxide 18 mmol/L (20-31); Glucose 369 mg/dL (74-106); Sodium 132 mmol/L (136-145); Total Protein 4.4 g/dL (5.7-8.2)
[2025-02-18 05:44] LABS: Blood Urea Nitrogen 100 mg/dL (9-23)
[2025-02-18] MEDS: NOREPINEPHRINE 8 MG/250ML KIT 250 ML IV ONE (08:53)
[2025-02-18 09:14] LABS: Base Excess -6.9 mmol/L (-2.0-3.0)
[2025-02-18] MEDS: NOREPINEPHRINE 8 MG/250ML KIT 250 ML IV SCH (09:53)
--- NOTE | 2025-02-18 09:54 | DVH ---
Procedure: XY CHEST PORTABLE 02/18/2025 09:12 AM Indication: CONFIRM LINE PLACEMENT Comparison: XY CHEST XRAY 1 VIEW on DOS: 02/16/25, XY CHEST XRAY 1 VIEW on DOS: 02/15/25, XY CHEST XRAY 1 VIEW on DOS: 02/15/25 TECHNIQUE: XY CHEST PORTABLE FINDINGS: Medical devices: The right IJ line extends to right atrium. The left IJ tunnel catheter tip is in the left side of the midline and does not cross to the right side. The enteric tube extends to the gastr ic bubble with the distal tip out of the field of view. Cardiomediastinal: The heart is normal in size. Pulmonary vasculature is within normal limits. Lungs: Right infrahilar reticular opacities are again noted. Limited low lung volume examination. The costophrenic angles are clear. No pneumothorax. Bones/soft tissues: No acute abnormality is noted. Atherosclerotic calcification of the bilateral car otid bulbs noted. IMPRESSION: 1. Stable chest radiograph with a stable position of the tubes and lines. Stable mild right infrahil ar pulmonary opacities noted.
[2025-02-18] MEDS: AMIODARONE 360mg/200mL PREMIX 200 ML IV SCH (11:00)
[2025-02-18] MEDS: PANTOPRAZOLE 40 MG/10 ML VIAL INJ IV SCH (11:27)
--- NOTE | 2025-02-18 12:32 | DVHINCON2 ---
Date Seen: February 18, 2025 Referring Physician OG Valdez Reason for Consultation AFib with RVR History of Present Illness This 69-year-old male admitted with the initial diagnosis of acute abdominal pain, SBO, liver cirrhosis with ascites, positive occult blood, and acute renal failure. The patient apparently developed AFib with RVR for which he was started on amiodarone drip and Cardiology consulted was initiated. 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 The patient is alert and oriented but somehow poor historian, questionable history of AFib, reports history of congestive heart failure, hyperlipidemia hypertension diabetes and cirrhosis. The patient denies dizziness, chest pain, shortness of breath or or dyspnea. The patient states that he sees urologist but does not remember the name. Past Medical History As stated in HPI Past Surgical History Appendectomy Family History: Alcoholism G8 FATHER, Onset:Unknown Cirrhosis of liver G8 FATHER Colon cancer G8 FATHER FH: heart attack FH: liver cancer FH: stomach cancer Hepatic cirrhosis G8 FATHER, Onset:Unknown Hypercholesterolemia G8 MOTHER Hypertension G8 MOTHER Ischemic heart disease G8 MOTHER Family History Reviewed, non-contributory to the management of this case. Social History The patient lives at home, denies smoking, alcohol or illicit drugs abuse. Allergies: Coded Allergies: No Known Drug Allergy (Verified Allergy, Unknown, 05/04/19) Home Meds Active Scripts Ciprofloxacin Hcl (Cipro) 500 Mg Tab, 1 TAB PO BID for 7 Days, #14 TAB Prov:RICHARD PIERRE MD 02/04/25 Metronidazole (Flagyl) 500 Mg Tab, 1 TAB PO TID for 7 Days, #21 TAB Prov:RICHARD PIERRE MD 02/04/25 Dicyclomine Hcl (BENTYL CAPSULE) 10 Mg Cp, 2 CAP PO Q6HP PRN, #60 CAP 11 Refills Prov:RICHARD PIERRE MD 02/04/25 Tramadol Hcl (Tramadol Hcl) 50 Mg Tab, 50 MG PO Q6HP PRN, #20 TAB Prov:RICHARD PIERRE MD 02/04/25 Lactulose (Constulose) 10 Gm/15 Ml Candis, 30 ML PO Q6H for 30 Days, #3600 ML Prov:EMERALD ALCANTAR MD 07/26/24 Reported Medications Spironolactone (Spironolactone) 25 Mg Tab, 1 TAB PO DAILY for 90 Days, #90 02/07/25 Pantoprazole Sodium Sesquihydr (Pantoprazole Sodium) 40 Mg Tab, 1 TAB PO BID for 30 Days, #60 02/07/25 Fluoxetine HCl (Fluoxetine HCl) 20 Mg Cap, 1 CAP PO QAM for 90 Days, #90 02/07/25 Ergocalciferol (Vitamin D) 50,000 Unit Cap, 1 CAP PO QWEEKLY for 28 Days, #4 02/07/25 Fexofenadine HCl (Fexofenadine Hydrochlorid) 180 Mg Tab, 1 TAB PO DAILY for 30 Days, #30 02/07/25 Rifaximin (Xifaxan) 550 Mg Tab, 1 TAB PO BID for 30 Days, #60 02/07/25 Empagliflozin (Jardiance) 25 Mg Tab, 1 TAB PO DAILY for 30 Days, #30 02/07/25 Allopurinol (Allopurinol) 100 Mg Tab, 1 TAB PO DAILY for 30 Days, #30 02/07/25 Glipizide (Glipizide) 10 Mg Tab, 1 TAB PO BID for 90 Days, #180 02/07/25 Insulin Lispro (Humalog Kwikpen) 100 Unit/Ml Inj, 100 UNIT SC, INJ 07/20/24 Furosemide (Furosemide) 40 Mg Tab, 1 TAB PO DAILY for 30 Days, #30 07/20/24 Insulin Glargine (Lantus Solostar) 100 Unit/Ml Inj, 35 UNIT SC BID 03/06/24 Atorvastatin Calcium (Lipitor) 40 Mg Tab, 1 TAB PO DAILY for 90 Days, #90 03/06/24 Dapagliflozin Propanediol (Farxiga) 10 Mg Tab, 10 MG PO DAILY, TAB 03/05/24 Amlodipine Besylate (Amlodipine Besylate) 10 Mg Tab, 1 TAB PO DAILY 03/05/24 Lisinopril (Lisinopril) 20 Mg Tab, 1 TAB PO DAILY for 90 Days, #90 03/05/24 Carvedilol (Carvedilol) 6.25 Mg Tab, 1 TAB PO BID for 90 Days, #180 03/05/24 Current Medications Current Medications Medications (Trade) Dose Ordered Sig/Tanya Route PRN Reason Start Time Stop Time Status Last Admin Fat Emulsion Intravenous 100 ml/Sodium Acetate 60 meq/Calcium Gluconate 2.3 meq/ Multivitamins 10 ml/Insulin Human Regular 22 units/ Amino Acids/ Dextrose 1,045.1662 ml @ 43 mls/hr [id number] IV 02/17/25 22:00 02/18/25 21:59 02/17/25 22:03 Hydromorphone HCl (Dilaudid Injection) 0.25 mg Q4HPRN PRN IV MODERATE PAIN (4-6 PAIN SCALE) 02/17/25 18:00 02/18/25 11:58 Norepinephrine Bitartrate 250 ml @ 3.75 mls/hr Q24H IV 02/18/25 09:00 02/18/25 09:53 Pantoprazole Sodium (Protonix) 40 mg BID IV 02/18/25 09:45 02/18/25 11:27 Fat Emulsion Intravenous 200 ml/Sodium Chloride 40 meq/ Sodium Acetate 40 meq/Potassium Chloride 20 meq/ Potassium Acetate 20 meq/Calcium Gluconate 1.65 meq/Multivitamins 10 ml/Insulin Human Regular 32 units/Amino Acids/ Dextrose 1,413.8683 ml @ 59 mls/hr [id number] IV 02/18/25 22:00 02/19/25 21:59 Review of Systems Constitutional: No symptom reported Ears, Nose, & Throat: No symptom reported Eyes: No symptom reported Neurological: No symptoms reported Pulmonary/Respiratory: No symptom reported Cardiovascular: AFib with RVR Gastrointestinal: No symptom reported Genitourinary: No symptom reported Musculoskeletal: No symptom reported Skin: No symptom reported Psychiatric: No symptom reported Endocrine: No symptom reported Hematologic/Lymphatic: No symptom reported Vital Signs Vital Signs Date Time Temp Pulse Resp B/P (MAP) Pulse Ox O2 Delivery O2 Flow Rate FiO2 02/18/25 11:58 114 28 108/43 02/18/25 10:15 94 02/18/25 10:00 Room Air* 0 21 02/18/25 08:00 98.3 98.3 Physical Exam INITIAL VITAL SIGNS: Reviewed by me GENERAL: Alert and oriented, poor historian HEAD: Head is normocephalic and atraumatic. EYES: EOMI, PERRL. No scleral icterus. No conjunctival injection. ENT: Moist mucous membranes. NECK: Supple, No masses, Full range of motion. RESPIRATORY: No tachypnea. Diminished lung sounds CV: AFib with RVR, currently on amiodarone drip, on vasopressors for hypotension GI/: Active bowel sounds, distended, NG tube INTEGUMENTARY: Warm and dry. No obvious rashes. NEUROLOGIC: Alert and oriented. Face is symmetric. Speech is normal. Moves all extremities equally. Labs/Diagnostic Data Labs Test 02/18/25 12:04 02/18/25 09:08 02/18/25 05:11 02/17/25 04:22 Range/Units POC Glucose 354 H 70-106 mg/dl Blood Gas Specimen Type Arterial Blood Gas Sample Site Left radial Blood Gas Patient Temperature 37.0 Arterial Blood Date Drawn [id number] Arterial Blood pH 7.400 7.350-7.450 Arterial Blood Partial Pressure CO2 26.8 L 35.0-48.0 mmHg Arterial Blood Partial Pressure O2 70.0 L 83.0-108.0 mmHg Arterial Blood HCO3 16.2 L 21.0-28.0 mmol/L Arterial Blood Oxygen Saturation 92.5 L 94.0-98.0 % Arterial Blood Base Excess -6.9 L -2.0-3.0 mmol/L Arterial Blood Oxyhemoglobin 90.8 L 94.0-98.0 % Arterial Blood Carboxyhemoglobin 1.2 0.5-1.5 % Arterial Blood Methemoglobin 0.6 0.0-1.5 % Charan Test Yes Blood Gas Total Hemoglobin 13.70 13.5-17.5 g/dL Blood Gas Modality Room air FiO2 % 21.0 White Blood Count 13.6 H 4.4-10.8 10^3/uL Red Blood Count 3.72 L 4.5-5.90 10^6/uL Hemoglobin 12.2 L 13.5-17.5 g/dL Hematocrit 36.4 L 41.0-53.0 % Mean Corpuscular Volume 97.8 80.0-100.0 fL Mean Corpuscular Hemoglobin 32.8 H 28.0-32.0 pg Mean Corpuscular Hemoglobin Concent 33.6 32.0-36.0 g/dL Red Cell Distribution Width 21.1 H 11.8-14.3 % Platelet Count 79 L 140-450 10^3/uL Mean Platelet Volume 9.7 6.9-10.8 fL Neutrophils (%) (Auto) 94.1 H 37.0-80.0 % Lymphocytes (%) (Auto) 3.2 L 10.0-50.0 % Monocytes (%) (Auto) 2.4 0.0-12.0 % Eosinophils (%) (Auto) 0.1 0.0-7.0 % Basophils (%) (Auto) 0.2 0.0-2.0 % Neutrophils # (Auto) 12.8 H 1.6-8.6 10 ^3/uL Lymphocytes # (Auto) 0.4 0.4-5.4 10 ^3/uL Monocytes # (Auto) 0.3 0-1.3 10 ^3/uL Eosinophils # (Auto) 0 0-0.8 10 ^3/uL Basophils # (Auto) 0 0-0.2 10 ^3/uL Nucleated Red Blood Cells 0.4 % Prothrombin Time 20.6 H 9.3-11.8 sec Prothrombin Time INR 2.09 H 0.9-1.15 Activated Partial Thromboplast Time 66.9 H 24.5-34.5 SEC Sodium Level 132 #L 136-145 mmol/L Potassium Level 4.4 3.5-5.1 mmol/L Chloride Level 101 98-107 mmol/L Carbon Dioxide Level 18 L 20-31 mmol/L Anion Gap 13 5-15 Blood Urea Nitrogen 100 *H 9-23 mg/dL Creatinine 3.75 H 0.700-1.30 mg/dL Glomerular Filtration Rate Calc 17 >90 mL/min BUN/Creatinine Ratio 26.7 H 10.0-20.0 Serum Glucose 369 H 74-106 mg/dL Calcium Level 8.0 L 8.7-10.4 mg/dL Phosphorus Level 3.5 2.4-5.1 mg/dL Magnesium Level 2.1 1.6-2.6 mg/dL Total Bilirubin 9.6 H 0.2-1.0 mg/dL Aspartate Amino Transferase (AST) 27 13-40 U/L Alanine Aminotransferase (ALT) 19 7-40 U/L Alkaline Phosphatase 83 46-116 U/L Total Protein 4.4 L 5.7-8.2 g/dL Albumin 2.3 L 3.2-4.8 g/dL Ammonia 66 H 11-32 umol/L Test 02/17/25 01:30 02/16/25 04:51 02/09/25 11:19 02/07/25 01:30 Range/Units Stool Occult Blood Positive Negative Stool Occult Blood Sample #3 Negative Triglycerides Level 48 < 150 mg/dL Lipase 85 H 12-53 U/L Lactic Acid Level 2.4 *H 0.4-2.0 mmol/L Urine Color Yellow Yellow Urine Clarity Clear Clear Urine pH 5.0 5.0-9.0 Urine Specific [place] 1.021 1.001-1.035 Urine Protein 1+ H Negative Urine Ketones Trace Negative Urine Blood 2+ H Negative /uL Urine Nitrite Negative Negative Urine Bilirubin Negative Negative Urine Urobilinogen Normal Negative mg/dL Urine Leukocyte Esterase Negative Negative /uL Urine RBC 1 0 - 3 /hpf Urine Microscopic WBC 3 0-3 /HPF Urine Squamous Epithelial Cells Few <5 /hpf Urine Bacteria None seen None Seen /hpf Urine Hyaline Casts Few 0 - 2 /lpf Urine Mucus Few None Seen Urine Yeast (Budding) Occasional None Seen /hpf Urine Creatinine 102.35 30.0-125.0 mg/dL Urine Protein/Creatinine Ratio 0.61 Urine Sodium 15 L 40-220 mmol/L Urine Glucose 2+ H Normal mg/dL Urine Total Protein 62.1 H 1-14 mg/dL Test 02/06/25 10:05 02/06/25 04:42 02/06/25 03:00 02/05/25 16:22 Range/Units Blood Gas Spontaneous Rate 28 Specimen Drawn By Oniel relief pilot Blood Gas Critical Value Read Back Yes Blood Gas Notified Whom aurea Duran Blood Gas Notified Time [id number] Blood Gas Notified By Oniel relief pilot Random Vancomycin Level 16.3 H 5-10 ug/mL Troponin I High Sensitivity 54 </=54 ng/L B-Type Natriuretic Peptide 162.33 0-100 pg/mL Microbiology Date/Time Source Procedure Growth Status 02/05/25 20:41 Blood Blood Culture - Final NO GROWTH AFTER 5 DAYS OF INCUBATION. Complete PROCEDURE(s): CXRP - CHEST PORTABLE REASON: CONFIRM LINE PLACEMENT ORDER NUMBER(s): [id number], ACCESSION NUMBER(s): [id number] Procedure: XY CHEST PORTABLE 02/18/2025 09:12 AM Indication: CONFIRM LINE PLACEMENT Comparison: XY CHEST XRAY 1 VIEW on DOS: 02/16/25, XY CHEST XRAY 1 VIEW on DOS: 02/15/25, XY CHEST XRAY 1 VIEW on DOS: 02/15/25 TECHNIQUE: XY CHEST PORTABLE FINDINGS: Medical devices: The right IJ line extends to right atrium. The left IJ tunnel catheter tip is in the left side of the midline and does not cross to the right side. The enteric tube extends to the gastric bubble with the distal tip out of the field of view. Cardiomediastinal: The heart is normal in size. Pulmonary vasculature is within normal limits. Lungs: Right infrahilar reticular opacities are again noted. Limited low lung volume examination. The costophrenic angles are clear. No pneumothorax. Bones/soft tissues: No acute abnormality is noted. Atherosclerotic calcification of the bilateral carotid bulbs noted. IMPRESSION: 1. Stable chest radiograph with a stable position of the tubes and lines. Stable mild right infrahilar pulmonary opacities noted. Assessment AFib with RVR, ?new onset hx of hypertension, currently hypotension on vasopressors hx of heart failure- previous Echo 50% Possible Sepsis Acute SBO Liver cirrhosis with ascites Acute renal failure Positive occult Hyperlipidemia Diabetes Obesity Plan/Recommendation ( ): AFib with RVR likely secondary to possible sepsis, continue with amiodarone drip per protocol. Chads Vasc score 4, HAS -BLED score 4, Given positive occult blood, we will hold off with anticoagulants therapy, suggesting SCD for now. Continue with vasopressors for BP support. In the meantime we will repeat echocardiogram and close cardiac surveillance. This medical document was created using an electronic medical record system with voice recognition software and computerized dictation system. Although this document has been carefully reviewed, there might still be some phonetic and typographical errors. Occasional wrong-word or ``sound-alike substitutions may have occurred due to the inherent limitations of voice recognition software. These areas are purely typographical due to imperfections of the software programs and do not reflect any compromise in the patient's medical care. Please read the chart carefully and recognize, using context, where these substitutions have occurred. Plan discussed with: Patient Plan discussed with: Patient NYHA Physical activity limitations: Class2(Slight)fatigue,sob Date of Service: February 18, 2025 Billing Provider: COLT SELBY Sr., MD Cardiology Common Codes: CONSULT ONLY Cardiology Consultation Codes: [id number] CONSULT <60MIN FABIOLA SHARMA [facility] February 18, 2025 12:32
[2025-02-18 13:35] LABS: LDL Cholesterol 5 mg/dL (< 100)
[2025-02-18 13:37] LABS: Cholesterol < 50.0 mg/dL (< 200)
[2025-02-18 13:38] LABS: HDL Cholesterol < 5 mg/dL (40-59)
[2025-02-18 13:46] LABS: Triglycerides 95 mg/dL (< 150)
--- NOTE | 2025-02-18 13:50 | DVHPN2 ---
Progress Note Date Seen: February 18, 2025 Has the PT tested + for MRSA If YES, has PT been informed?: No Medical Necessity Reason Pt with a Central, PICC or Fol: Yes Subjective Patient reports: Other Review of Systems: GI:Abnormal (abd pain) Objective vital signs Vital Sign Date Time Temp Pulse Resp B/P (MAP) Pulse Ox O2 Delivery O2 Flow Rate FiO2 02/18/25 13:30 130 31 111/58 (75) 92 02/18/25 12:00 Room Air* 0 21 02/18/25 08:00 98.3 98.3 Total Intake and Output 02/17/25 02/17/25 02/18/25 14:59 22:59 06:59 Intake Total 1200 ml 1176 ml 1397.33 ml Output Total 600 ml 250 ml Balance 1200 ml 576 ml 1147.33 ml medications Current Medications Medications Dose Ordered Sig/Tanya Route Start Time Stop Time Status Last Admin Dose Admin Metronidazole 100 ml @ 100 mls/hr Q8HR IV 02/06/25 06:00 02/18/25 05:45 100 MLS/HR Carvedilol 6.25 mg Q12HR PO 02/06/25 10:00 02/14/25 21:27 6.25 MG Ondansetron HCl 4 mg Q4HP PRN IV 02/05/25 22:15 02/17/25 22:11 4 MG Acetaminophen 650 mg Q6HP PRN PO 02/05/25 22:15 02/12/25 03:43 650 MG Docusate Sodium 100 mg BID PO 02/06/25 10:00 02/14/25 21:27 100 MG Lactulose 30 ml Q6HR PO 02/06/25 18:00 02/18/25 12:00 30 ML Ceftriaxone Sodium/Dextrose 50 ml @ 50 mls/hr DAILY@0900 IV 02/07/25 09:00 02/18/25 09:00 50 MLS/HR Amino Acids 0 ml @ 0 mls/hr PER PHARMACY IV 02/15/25 14:00 Diagnostic Test (Pha) 1 strip Q6HR 02/16/25 00:00 02/18/25 12:25 1 STRIP Insulin Human Regular FOLLOW SLIDING SCALE Q6HR SC 02/16/25 00:00 02/18/25 12:28 16 UNITS Dextrose 50 ml UD IV 02/15/25 22:00 Fat Emulsion Intravenous 100 ml/Sodium Acetate 60 meq/Calcium Gluconate 2.3 meq/ Multivitamins 10 ml/Insulin Human Regular 22 units/ Amino Acids/ Dextrose 1,045.1662 ml @ 43 mls/hr [id number] IV 02/17/25 22:00 02/18/25 21:59 02/17/25 22:03 43 MLS/HR Hydromorphone HCl 0.25 mg Q4HPRN PRN IV 02/17/25 18:00 02/18/25 11:58 0.25 MG Norepinephrine Bitartrate 250 ml @ 3.75 mls/hr Q24H IV 02/18/25 09:00 02/18/25 09:53 3.75 MLS/HR Pantoprazole Sodium 40 mg BID IV 02/18/25 09:45 02/18/25 11:27 40 MG Fat Emulsion Intravenous 200 ml/Sodium Chloride 40 meq/ Sodium Acetate 40 meq/Potassium Chloride 20 meq/ Potassium Acetate 20 meq/Calcium Gluconate 1.65 meq/Multivitamins 10 ml/Insulin Human Regular 32 units/Amino Acids/ Dextrose 1,413.8683 ml @ 59 mls/hr [id number] IV 02/18/25 22:00 02/19/25 21:59 Examination: GENERAL:Abnormal, ABDOMEN:Abnormal, MSK:Abnormal, SKIN:Normal, NEURO:Normal laboratory and microbiology Laboratory Tests 02/18/25 05:11 Test 02/18/25 05:11 Range/Units Serum Glucose 369 H 74-106 mg/dL Microbiology Date/Time Source Procedure Growth Status 02/05/25 20:41 Blood Blood Culture - Final NO GROWTH AFTER 5 DAYS OF INCUBATION. Complete Problem List/Assessment/Plan Problem List/Assessment/Plan Acute kidney injury, likely hemodynamic mediated etiology plus or minus ATN needing HD Uremic encephalopathy Sepsis due to SBO versus ileus Decompensated liver cirrhosis Macrocytic Anemia History of hepatic encephalopathy Hyperkalemia Heart failure with preserved ejection fraction Diabetes mellitus type 2 History of paroxysmal AFib History of pneumonia status and intubation History of TX Hypertension Chronic thrombocytopenia Morbid obesity Recommendations Next dialysis will be on Wednesday dc ivf Discussed with son bedside Surgical consult follow-up Plan discussed with: Patient, Son Dietary Evaluation Review Comments: 1) [facility] + Renal specific 60gm as medically feasible 2) Refer to CDE on DC 3) Continue current plan of care Expected Outcomes/Goals: To meet 75% estimated needs fu 2-3 days MELODY GOODSON MD February 18, 2025 13:50
[2025-02-18] MEDS: MEROPENEM 500MG IVPB 50 ML IV ONE (14:15)
[2025-02-18] MEDS: phytonadione 10 MG in SODIUM CHL 0.9% 50 ML IV ONE (14:15)
--- NOTE | 2025-02-18 14:17 | DVHPN2 ---
Subjective Today the patient is becoming more hypotensive so we started Levophed IV drip His abdomen is more distended and firm White count is higher at 13.6 Platelets 79 Creatinine 3.7 BUN 100 Sodium 132 Potassium 4.4 Changes from previous H/P or p: Changes Objective Vitals Vital Signs Date Time Temp Pulse Resp B/P (MAP) Pulse Ox O2 Delivery O2 Flow Rate FiO2 02/18/25 13:30 130 31 111/58 (75) 92 02/18/25 12:00 Room Air* 0 21 02/18/25 08:00 98.3 98.3 Intake/Output Intake and Output 02/18/25 07:00 Intake Total 3886.99 ml Output Total 850 ml Balance 3036.99 ml IV Total 3766.99 ml Other 120 ml Output Urine Total 450 ml Gastric Drainage Total 400 ml # Bowel Movements 5 General Appearance: Alert, Oriented X3, Cooperative, No acute distress Lungs: Clear to auscultation Cardiovascular: Regular rate, Normal S1, Normal S2 Abdomen: Normal bowel sounds, Other (Distended and generalized tenderness) Extremities: Other (1+ edema bilaterally in the lower extremities) Medications Current Medications Medications Dose Ordered Sig/Tanya Route Start Time Stop Time Status Last Admin Dose Admin Metronidazole 100 ml @ 100 mls/hr Q8HR IV 02/06/25 06:00 02/18/25 05:45 100 MLS/HR Carvedilol 6.25 mg Q12HR PO 02/06/25 10:00 02/14/25 21:27 6.25 MG Ondansetron HCl 4 mg Q4HP PRN IV 02/05/25 22:15 02/17/25 22:11 4 MG Acetaminophen 650 mg Q6HP PRN PO 02/05/25 22:15 02/12/25 03:43 650 MG Docusate Sodium 100 mg BID PO 02/06/25 10:00 02/14/25 21:27 100 MG Lactulose 30 ml Q6HR PO 02/06/25 18:00 02/18/25 12:00 30 ML Ceftriaxone Sodium/Dextrose 50 ml @ 50 mls/hr DAILY@0900 IV 02/07/25 09:00 02/18/25 09:00 50 MLS/HR Amino Acids 0 ml @ 0 mls/hr PER PHARMACY IV 02/15/25 14:00 Diagnostic Test (Pha) 1 strip Q6HR 02/16/25 00:00 02/18/25 12:25 1 STRIP Insulin Human Regular FOLLOW SLIDING SCALE Q6HR SC 02/16/25 00:00 02/18/25 12:28 16 UNITS Dextrose 50 ml UD IV 02/15/25 22:00 Fat Emulsion Intravenous 100 ml/Sodium Acetate 60 meq/Calcium Gluconate 2.3 meq/ Multivitamins 10 ml/Insulin Human Regular 22 units/ Amino Acids/ Dextrose 1,045.1662 ml @ 43 mls/hr [id number] IV 02/17/25 22:00 02/18/25 21:59 02/17/25 22:03 43 MLS/HR Hydromorphone HCl 0.25 mg Q4HPRN PRN IV 02/17/25 18:00 02/18/25 11:58 0.25 MG Norepinephrine Bitartrate 250 ml @ 3.75 mls/hr Q24H IV 02/18/25 09:00 02/18/25 09:53 3.75 MLS/HR Pantoprazole Sodium 40 mg BID IV 02/18/25 09:45 02/18/25 11:27 40 MG Fat Emulsion Intravenous 200 ml/Sodium Chloride 40 meq/ Sodium Acetate 40 meq/Potassium Chloride 20 meq/ Potassium Acetate 20 meq/Calcium Gluconate 1.65 meq/Multivitamins 10 ml/Insulin Human Regular 32 units/Amino Acids/ Dextrose 1,413.8683 ml @ 59 mls/hr [id number] IV 02/18/25 22:00 02/19/25 21:59 Laboratory Results Laboratory Tests 02/18/25 05:11 Chemistry Test 02/18/25 05:11 Albumin 2.3 g/dL (3.2-4.8) L Calcium Level 8.0 mg/dL (8.7-10.4) L Magnesium Level 2.1 mg/dL (1.6-2.6) Phosphorus Level 3.5 mg/dL (2.4-5.1) Total Protein 4.4 g/dL (5.7-8.2) L Coagulation Test 02/18/25 05:11 Prothrombin Time 20.6 sec (9.3-11.8) H Prothrombin Time INR 2.09 (0.9-1.15) H Activated Partial Thromboplast Time 66.9 SEC (24.5-34.5) H Lipid panel Test 02/18/25 05:11 Cholesterol Level < 50.0 mg/dL (< 200) HDL Cholesterol < 5 mg/dL (40-59) L Triglycerides Level 95 mg/dL (< 150) LFT Test 02/18/25 05:11 Alanine Aminotransferase (ALT) 19 U/L (7-40) Alkaline Phosphatase 83 U/L (46-116) Aspartate Amino Transferase (AST) 27 U/L (13-40) Total Bilirubin 9.6 mg/dL (0.2-1.0) H HgA1c, TSH Test 02/18/25 05:11 Thyroid Stimulating Hormone (TSH) 1.63 uIU/mL (0.55-4.78) Urinalysis Test 02/07/25 01:30 Urine Color Yellow (Yellow) Urine Clarity Clear (Clear) Urine pH 5.0 (5.0-9.0) Urine Specific [place] 1.021 (1.001-1.035) Urine Protein 1+ (Negative) H Urine Ketones Trace (Negative) Urine Blood 2+ /uL (Negative) H Urine Nitrite Negative (Negative) Urine Bilirubin Negative (Negative) Urine Urobilinogen Normal mg/dL (Negative) Urine Leukocyte Esterase Negative /uL (Negative) Urine RBC 1 /hpf (0 - 3) Urine Microscopic WBC 3 /HPF (0-3) Urine Squamous Epithelial Cells Few /hpf (<5) Urine Bacteria None seen /hpf (None Seen) Urine Hyaline Casts Few /lpf (0 - 2) Urine Mucus Few (None Seen) Urine Yeast (Budding) Occasional /hpf (None Urine Creatinine 102.35 mg/dL (30.0-125.0) Urine Protein/Creatinine Ratio 0.61 Urine Sodium 15 mmol/L (40-220) L Urine Glucose 2+ mg/dL (Normal) H Urine Total Protein 62.1 mg/dL (1-14) H Blood Gas Results Test 02/18/25 09:08 Arterial Blood pH 7.400 (7.350-7.450) FiO2 % 21.0 Microbiology Microbiology Date/Time Source Procedure Growth Status 02/05/25 20:41 Blood Blood Culture - Final NO GROWTH AFTER 5 DAYS OF INCUBATION. Complete Assessment/Plan Assessment/Plan Abdominal pain Rule out bowel obstructionsurgical Intractable nausea and vomiting Constipation Hepatic encephalopathy Liver cirrhosis Possible hepatorenal syndrome Acute kidney injury/chronic kidney disease Thrombocytopenia Leukocytosis Type 2 diabetes Hypertension Mixed hyperlipidemia Ascites Lactic acidosis Hyperkalemia Hyponatremia Moderate protein malnutrition Plan Keep NPO Surgical consult Continue lactulose Continue rifaximin GI consult Nephrology consult Paracentesis was attempted, not enough ascites fluids for the procedure to be done Hepatorenal syndrome? : Give albumin IV IV ceftriaxone and Flagyl empirically Full code Advance directives discussed for 20 minute 02/07/2025: Hyponatremia Hyperkalemia Acute kidney injury: Worsening, nephrology on board Metabolic acidosis Chronic kidney disease Liver cirrhosis Hepatic encephalopathy: Improved continue lactulose Abdominal distention and pain: Surgical consult pending 02/08/2025: Small bowel series today to rule out bowel obstruction GI is on board Nephrology is on board Kidney function is improving with a creatinine of 3.0 and carbon dioxide of 22 today Monitor closely 02/09/25: Abdominal pain, Vomiting SBO vs Ileus: NPO, NG tube to suction, surgical consult Urinary retention: Lopez IV fluids IV antibiotics 02/10/2025: Continue NG tube suction Surgical consult Continue NPO Lopez catheter IV fluids IV antibiotics Monitor closely 02/11/2025: Continue the current management with NG tube suction and NPO IV antibiotics IV fluids Awaiting surgical consult Monitor the patient closely The rest of the management will depend on the hospital course 02/12/2025: Continue the NG tube suction Surgical consult is pending I discussed the case with Dr. Luna who will see the patient today Kidney function has improved significantly, creatinine is down to 1.5 Liver cirrhosis Hepatic encephalopathy: Stable 02/13/2025: Continue NG tube suction Surgical Service Dr. Luna is following IV fluids Monitor the kidney function Hepatic encephalopathy: Alert and oriented, monitor Monitor closely JANET Hypernatremia Hyperkalemia 02/14/2025: Abdominal pain and distention, small bowel obstruction versus ileus: Small bowel series done today, pending Consult general surgery, Dr. Lesia Herzog Continue NPO and NG tube suction for now Continue IV fluids Acute kidney injury: Liver cirrhosis Hypernatremia Hyperkalemia 02/15/2025: The patient appears to be going septic with a altered level of consciousness and worsening kidney function and hyperkalemia and hypernatremia The patient does not have any bowel sounds The patient is not having any bowel movements KUB and CT scan of the abdomen and pelvis showed possible bowel obstruction Transfer the patient to the OU Keep NPO Start tPA NG tube to suction General surgery is following, Dr. Lesia Herzog is considering surgery Very high risk for surgery due to liver cirrhosis and kidney failure and coagulopathy and thrombocytopenia Coagulopathy due to liver cirrhosis Thrombocytopenia due to sepsis and liver cirrhosis Possible hepatorenal syndrome Give albumin IV Discussed with the son at the bedside, explained the poor prognosis, explained the comorbidities including liver cirrhosis and kidney failure, explained that if the patient needs surgery it would be high risk Continue IV fluids Nephrology consult is on board GI is also seeing the patient Give Vitamin K and fresh frozen plasma In case he needs surgery, he will need fresh frozen plasma JANET: D5W IV until TPN is started Guarded prognosis Full code 02/16/2025: Transfuse 2 units fresh frozen plasma Vitamin K 10 mg IV Hemodialysis to be done today Continue IV antibiotics Continue IV fluids TPN Surgical consult is following Nephrology Service is following GI is also following Discussed with the his son at the bedside, questions answered Guarded prognosis The rest of the management will depend on the hospital course 02/17/2025: Continue NPO Continue NG tube suction IV antibiotics Rocephin and Flagyl TPN per pharmacy Surgical consultation is following the patient Nephrology for the kidney failure Dialysis per Nephrology Monitor closely Discussed with the family at the bedside 02/18/2025: Sepsis with septic shock: Start Levophed IV drip Continue IV antibiotics: Flagyl IV, change Rocephin to meropenem IV NPO NG tube suction Surgery is following Dr. Lesia Herzog he is going to come and re-evaluate the patient for possible surgery Coagulopathy: INR 2.0: Give vitamin K and fresh frozen plasma in case patient will go to surgery today Continue TPN Plan discussed with: Patient, Son My Orders Orders - JOVON LOPEZ MD Procedure Category Date Status Time Abg W/ Co-Ox RT 02/18/25 Logged 08:06 Norepinephrine 8 PHA 02/18/25 In Process Mg/250ml Kit 09:00 Chest Portable XY 02/18/25 Resulted 08:55 Amino Acid PHA 02/18/25 In Process Infusion... W/Fat 22:00 Comprehensive LAB 02/19/25 Verified Metabolic Panel 04:00 Magnesium LAB 02/19/25 Verified 04:00 Phosphorus LAB 02/19/25 Verified 04:00 Tpn Per Pharmacy JANET 02/18/25 In Process 22:00 Date of Service: February 18, 2025 Billing Provider: JOVON LOPEZ MD Common Visit Codes: [id number] CARE 30-74 MIN JOVON LOPEZ MD February 18, 2025 14:17
[2025-02-18] MEDS ORDERED: fentaNYL CITRATE 100 MCG/2 ML VL ONE (21:11)
[2025-02-18] MEDS ORDERED: ROCURONIUM 10MG/ML 10ML VIAL IV ONE (21:12)
[2025-02-18] MEDS ORDERED: KETAMINE 50mg/ML 1ml syringe ONE (21:12)
[2025-02-18] MEDS ORDERED: HYDROmorphone HCL 2 MG/ML VL/or syr ONE (21:12)
[2025-02-18] MEDS ORDERED: ETOMIDATE (2MG/ML) 20ML VIAL IV ONE (21:12)
[2025-02-18] MEDS ORDERED: LIDOCAINE 2% (LOCAL ANESTH.) PF 5ml SDV ONE (21:12)
[2025-02-18] MEDS ORDERED: PHENYLEPHRINE HCL 10 MG/ML VL ONE (21:12)
[2025-02-18] MEDS: MEROPENEM 500MG IVPB 50 ML IV SCH (22:00)
[2025-02-18 22:36] LABS: Base Excess -11.2 mmol/L (-2.0-3.0)
[2025-02-18] MEDS: CALCIUM CHL(10%) 100MG/ML 10ML VIAL IV ONE (22:43)
[2025-02-18] MEDS: SODIUM BICARB 8.4% 50Meq/50ml SYR Vial IV ONE (22:43)
[2025-02-18] MEDS: CALCIUM CHLOR(10%) 100MG/ML 10ML SYRINGE IV ONE (22:46)
--- NOTE | 2025-02-18 22:51 | DVHINCON2 ---
Date of service: February 18, 2025 Referring Physician Rochelle Natarajan MD Reason for Consultation Sepsis History of Present Illness A 69-year-old man with past medical history of diabetes mellitus, dyslipidemia, hypertension, ND, and CHF who presented to ED on 02/06/25 for evaluation of abdominal pain. Patient reported a 3-day history of diffuse abdominal pain with associated nausea, vomiting, intermittent chills and 2-day history of constipation. Note, patient was seen the day prior to presentation, and a CAT scan was essentially negative for acute pathology and he was sent home with a diagnosis of enteritis. Patient returned with similar symptoms and was admitted for further care. KUB and CT scan of the abdomen and pelvis showed possible bowel obstruction, Surgery managing. Pulmonary consultation is requested for evaluation and management of sepsis. Review of Systems: 14-point review of systems negative unless otherwise noted above. Past Medical History: Diabetes mellitus, dyslipidemia, hypertension, ND, CHF Past Surgical History: Appendectomy Medications: Reviewed. Allergies: No known drug allergies. Family History: Colon cancer ND Liver cancer Hepatic cirrhosis Ischemic heart disease. Hypercholesterolemia Hypertension Social History: Nonsmoker. No alcohol or illicit drug use. Family History: Alcoholism G8 FATHER, Onset:Unknown Cirrhosis of liver G8 FATHER Colon cancer G8 FATHER FH: heart attack FH: liver cancer FH: stomach cancer Hepatic cirrhosis G8 FATHER, Onset:Unknown Hypercholesterolemia G8 MOTHER Hypertension G8 MOTHER Ischemic heart disease G8 MOTHER Allergies: Coded Allergies: No Known Drug Allergy (Verified Allergy, Unknown, 05/04/19) Home Meds Active Scripts Ciprofloxacin Hcl (Cipro) 500 Mg Tab, 1 TAB PO BID for 7 Days, #14 TAB Prov:RICHARD PIERRE MD 02/04/25 Metronidazole (Flagyl) 500 Mg Tab, 1 TAB PO TID for 7 Days, #21 TAB Prov:RICHARD PIERRE MD 02/04/25 Dicyclomine Hcl (BENTYL CAPSULE) 10 Mg Cp, 2 CAP PO Q6HP PRN, #60 CAP 11 Refills Prov:RICHARD PIERRE MD 02/04/25 Tramadol Hcl (Tramadol Hcl) 50 Mg Tab, 50 MG PO Q6HP PRN, #20 TAB Prov:RICHARD PIERRE MD 02/04/25 Lactulose (Constulose) 10 Gm/15 Ml Candis, 30 ML PO Q6H for 30 Days, #3600 ML Prov:EMERALD ALCANTAR MD 07/26/24 Reported Medications Spironolactone (Spironolactone) 25 Mg Tab, 1 TAB PO DAILY for 90 Days, #90 02/07/25 Pantoprazole Sodium Sesquihydr (Pantoprazole Sodium) 40 Mg Tab, 1 TAB PO BID for 30 Days, #60 02/07/25 Fluoxetine HCl (Fluoxetine HCl) 20 Mg Cap, 1 CAP PO QAM for 90 Days, #90 02/07/25 Ergocalciferol (Vitamin D) 50,000 Unit Cap, 1 CAP PO QWEEKLY for 28 Days, #4 02/07/25 Fexofenadine HCl (Fexofenadine Hydrochlorid) 180 Mg Tab, 1 TAB PO DAILY for 30 Days, #30 02/07/25 Rifaximin (Xifaxan) 550 Mg Tab, 1 TAB PO BID for 30 Days, #60 02/07/25 Empagliflozin (Jardiance) 25 Mg Tab, 1 TAB PO DAILY for 30 Days, #30 02/07/25 Allopurinol (Allopurinol) 100 Mg Tab, 1 TAB PO DAILY for 30 Days, #30 02/07/25 Glipizide (Glipizide) 10 Mg Tab, 1 TAB PO BID for 90 Days, #180 02/07/25 Insulin Lispro (Humalog Kwikpen) 100 Unit/Ml Inj, 100 UNIT SC, INJ 07/20/24 Furosemide (Furosemide) 40 Mg Tab, 1 TAB PO DAILY for 30 Days, #30 07/20/24 Insulin Glargine (Lantus Solostar) 100 Unit/Ml Inj, 35 UNIT SC BID 03/06/24 Atorvastatin Calcium (Lipitor) 40 Mg Tab, 1 TAB PO DAILY for 90 Days, #90 03/06/24 Dapagliflozin Propanediol (Farxiga) 10 Mg Tab, 10 MG PO DAILY, TAB 03/05/24 Amlodipine Besylate (Amlodipine Besylate) 10 Mg Tab, 1 TAB PO DAILY 03/05/24 Lisinopril (Lisinopril) 20 Mg Tab, 1 TAB PO DAILY for 90 Days, #90 03/05/24 Carvedilol (Carvedilol) 6.25 Mg Tab, 1 TAB PO BID for 90 Days, #180 03/05/24 Current Medications Current Medications Medications (Trade) Dose Ordered Sig/Tanya Route PRN Reason Start Time Stop Time Status Last Admin Norepinephrine Bitartrate 250 ml @ 3.75 mls/hr Q24H IV 02/18/25 09:00 02/18/25 19:58 Pantoprazole Sodium (Protonix) 40 mg BID IV 02/18/25 09:45 02/18/25 11:27 Fat Emulsion Intravenous 200 ml/Sodium Chloride 40 meq/ Sodium Acetate 40 meq/Potassium Chloride 20 meq/ Potassium Acetate 20 meq/Calcium Gluconate 1.65 meq/Multivitamins 10 ml/Insulin Human Regular 32 units/Amino Acids/ Dextrose 1,413.8683 ml @ 59 mls/hr [id number] IV 02/18/25 22:00 02/19/25 21:59 Meropenem 50 ml @ 17 mls/hr Q12HR IV 02/18/25 22:00 Vital Signs Vital Signs Date Time Temp Pulse Resp B/P (MAP) Pulse Ox O2 Delivery O2 Flow Rate FiO2 02/18/25 21:15 128 29 123/62 (82) 93 02/18/25 21:00 98.3 98.3 02/18/25 20:00 Room Air* 2 N/A Nasal Cannula* Physical Exam Gen.: Patient lying in bed in no apparent distress. Breathing on room air. Head: Normocephalic, atraumatic. Eyes: EOMI/PERRLA. Ears: Normal hearing. Normal anatomy. Neck/trachea: Trachea midline, supple. Nose: Normal external anatomy. Mouth: Moist mucous membranes. Chest: Decreased air entry bilaterally. No wheezing or rhonchi. Cardiovascular: Positive S1, positive S2. Regular rate and rhythm. Abdomen: Positive bowel sounds in all 4 quadrants. Soft, non-tender, non-distend ed. : Deferred. Rectal: Deferred. Skin: Warm, dry. Intact. Extremities: 2+ radial pulses bilaterally. No lower extremity edema. Neuro: Awake, alert, oriented x3. No gross motor or sensory deficits. Cranial nerves II through XII intact. Gait not assessed. Labs/Diagnostic Data Labs Test 02/18/25 22:25 02/18/25 18:35 02/18/25 05:11 02/17/25 04:22 Range/Units Blood Gas Specimen Type Arterial Blood Gas Sample Site Right radial Blood Gas Patient Temperature 37.0 Arterial Blood Date Drawn [id number] Arterial Blood pH 7.189 *L 7.350-7.450 Arterial Blood Partial Pressure CO2 44.9 35.0-48.0 mmHg Arterial Blood Partial Pressure O2 183.9 H 83.0-108.0 mmHg Arterial Blood HCO3 16.7 L 21.0-28.0 mmol/L Arterial Blood Oxygen Saturation 98.7 H 94.0-98.0 % Arterial Blood Base Excess -11.2 L -2.0-3.0 mmol/L Arterial Blood Oxyhemoglobin 97.2 94.0-98.0 % Arterial Blood Carboxyhemoglobin 0.8 0.5-1.5 % Arterial Blood Methemoglobin 0.7 0.0-1.5 % Charan Test Modified Blood Gas Total Hemoglobin 13.80 13.5-17.5 g/dL Blood Gas Set Respiration Rate 14.0 Blood Gas Modality Vent - ac FiO2 % 50.0 Blood Gas Tidal Volume 500.0 Blood Gas PEEP or CPAP 5.0 Blood Gas Critical Value Read Back Yes Blood Gas Notified Whom Dr simonsr Blood Gas Notified Time [id number] Blood Gas Notified By Jeny bob, contact lens cutter POC Glucose 305 H 70-106 mg/dl White Blood Count 13.6 H 4.4-10.8 10^3/uL Red Blood Count 3.72 L 4.5-5.90 10^6/uL Hemoglobin 12.2 L 13.5-17.5 g/dL Hematocrit 36.4 L 41.0-53.0 % Mean Corpuscular Volume 97.8 80.0-100.0 fL Mean Corpuscular Hemoglobin 32.8 H 28.0-32.0 pg Mean Corpuscular Hemoglobin Concent 33.6 32.0-36.0 g/dL Red Cell Distribution Width 21.1 H 11.8-14.3 % Platelet Count 79 L 140-450 10^3/uL Mean Platelet Volume 9.7 6.9-10.8 fL Neutrophils (%) (Auto) 94.1 H 37.0-80.0 % Lymphocytes (%) (Auto) 3.2 L 10.0-50.0 % Monocytes (%) (Auto) 2.4 0.0-12.0 % Eosinophils (%) (Auto) 0.1 0.0-7.0 % Basophils (%) (Auto) 0.2 0.0-2.0 % Neutrophils # (Auto) 12.8 H 1.6-8.6 10 ^3/uL Lymphocytes # (Auto) 0.4 0.4-5.4 10 ^3/uL Monocytes # (Auto) 0.3 0-1.3 10 ^3/uL Eosinophils # (Auto) 0 0-0.8 10 ^3/uL Basophils # (Auto) 0 0-0.2 10 ^3/uL Nucleated Red Blood Cells 0.4 % Prothrombin Time 20.6 H 9.3-11.8 sec Prothrombin Time INR 2.09 H 0.9-1.15 Activated Partial Thromboplast Time 66.9 H 24.5-34.5 SEC Sodium Level 132 #L 136-145 mmol/L Potassium Level 4.4 3.5-5.1 mmol/L Chloride Level 101 98-107 mmol/L Carbon Dioxide Level 18 L 20-31 mmol/L Anion Gap 13 5-15 Blood Urea Nitrogen 100 *H 9-23 mg/dL Creatinine 3.75 H 0.700-1.30 mg/dL Glomerular Filtration Rate Calc 17 >90 mL/min BUN/Creatinine Ratio 26.7 H 10.0-20.0 Serum Glucose 369 H 74-106 mg/dL Calcium Level 8.0 L 8.7-10.4 mg/dL Phosphorus Level 3.5 2.4-5.1 mg/dL Magnesium Level 2.1 1.6-2.6 mg/dL Total Bilirubin 9.6 H 0.2-1.0 mg/dL Aspartate Amino Transferase (AST) 27 13-40 U/L Alanine Aminotransferase (ALT) 19 7-40 U/L Alkaline Phosphatase 83 46-116 U/L Total Protein 4.4 L 5.7-8.2 g/dL Albumin 2.3 L 3.2-4.8 g/dL Triglycerides Level 95 < 150 mg/dL Cholesterol Level < 50.0 < 200 mg/dL LDL Cholesterol 5 < 100 mg/dL HDL Cholesterol < 5 L 40-59 mg/dL Thyroid Stimulating Hormone (TSH) 1.63 0.55-4.78 uIU/mL Ammonia 66 H 11-32 umol/L Test 02/17/25 01:30 02/16/25 04:51 02/09/25 11:19 02/07/25 01:30 Range/Units Stool Occult Blood Positive Negative Stool Occult Blood Sample #3 Negative Lipase 85 H 12-53 U/L Lactic Acid Level 2.4 *H 0.4-2.0 mmol/L Urine Color Yellow Yellow Urine Clarity Clear Clear Urine pH 5.0 5.0-9.0 Urine Specific [place] 1.021 1.001-1.035 Urine Protein 1+ H Negative Urine Ketones Trace Negative Urine Blood 2+ H Negative /uL Urine Nitrite Negative Negative Urine Bilirubin Negative Negative Urine Urobilinogen Normal Negative mg/dL Urine Leukocyte Esterase Negative Negative /uL Urine RBC 1 0 - 3 /hpf Urine Microscopic WBC 3 0-3 /HPF Urine Squamous Epithelial Cells Few <5 /hpf Urine Bacteria None seen None Seen /hpf Urine Hyaline Casts Few 0 - 2 /lpf Urine Mucus Few None Seen Urine Yeast (Budding) Occasional None Seen /hpf Urine Creatinine 102.35 30.0-125.0 mg/dL Urine Protein/Creatinine Ratio 0.61 Urine Sodium 15 L 40-220 mmol/L Urine Glucose 2+ H Normal mg/dL Urine Total Protein 62.1 H 1-14 mg/dL Test 02/06/25 10:05 02/06/25 04:42 02/06/25 03:00 02/05/25 16:22 Range/Units Blood Gas Spontaneous Rate 28 Specimen Drawn By Oniel richard Random Vancomycin Level 16.3 H 5-10 ug/mL Troponin I High Sensitivity 54 </=54 ng/L B-Type Natriuretic Peptide 162.33 0-100 pg/mL Microbiology Date/Time Source Procedure Growth Status 02/05/25 20:41 Blood Blood Culture - Final NO GROWTH AFTER 5 DAYS OF INCUBATION. Complete Assessment Impression: Atrial fibrillation w/ RVR Shock Abdominal distension/SBO Obesity BMI 38 Cirrhosis Sepsis Plan: Supplemental oxygen PRN Titrate to keep O2 sats above 92%. On amiodarone drip Cardiology recs appreciated On pressors for hemodynamic support Levophed 8 mcg/min Titrate to keep MAP above 65 mmHg/SBP above 90 mmHg. Monitor blood pressure Antibiotics Lactulose for elevated ammonia TPN for nutritional support NGT/NPO Follow up Surgery recommendations Monitor renal function. Monitor electrolytes. Supplement as necessary. Monitor ins and outs. Magnesium supplementation Diet and lifestyle modifications for weight reduction Obesity - complicates all care DVT prophylaxis. Prognosis: Poor given patient's multiple co-morbidities. Condition: Critical Rest of plan per hospitalist and other consultants. A total of 35 minutes of critical care time was spent reviewing the patient record, examining the patient, making a diagnostic and therapeutic plan, discussing this plan with the medical personnel, following up on diagnostic studies and following the patient for clinical stability excluding any and all procedures. At least 50% of this time was spent in direct, [id number] contact. Thank you Dr. Natarajan, for allowing me to participate in this patient's care. Further recommendations will depend on the patient's clinical course. Please do not hesitate to contact me if you have any questions or concerns. This medical document was created using an electronic medical record system with [employer] computerized dictation system. Although these documentations are being carefully reviewed, there may still be some phonetic and typographical changes. The errors are purely typographical, due to imperfection on the software program, and do not reflect any compromise in the patient's medical care. Plan discussed with: Other (ANDRÉS [place]/Dr. Natarajan) FRANCESCO RIDLEY MD February 18, 2025 22:51
[2025-02-18 23:31] LABS: Base Excess -10.1 mmol/L (-2.0-3.0)
[2025-02-19] VITALS (103 sets, daily range): BP systolic 69–135; BP diastolic 28–87; PULSE 100–130; RESP 16–36; TEMP 97.9–99.2; O2SAT 93–99
[2025-02-19] MEDS: VASOPRESSIN 20 UNIT/ML ONE ×3 (00:09→00:24)
--- NOTE | 2025-02-19 00:43 | DVHOP2 ---
Operative Report [id number] SBO ILEUS/SBO SEC TO BOWEL ISCHEMIA CAUSED POSSIBLY BY MESENTERIC THROMBOSIS E LAP SMALL BOWEL RESECTION X 2 PRIMARY ANASTOMOSIS EXTENSIVE LYSIS OF ADHESIONS DRAINAGE OF ASCITES ONE DRAIN EBL 100 CC NO COMPLICATIONS DETAILS AND OPERATIVE FINDINGS DISCUSSED WITH FAMILY MARIANA PENA MD February 19, 2025 00:43
--- NOTE | 2025-02-19 01:05 | DVHOP ---
DATE OF SURGERY: 02/18/2025 PREOPERATIVE DIAGNOSES: Rule out bowel obstruction, was found to have small bowel ileus with the possibility of bowel obstruction and causing mesenteric edema and a distal small bowel obstruction secondary to adhesions, but that was not causing the issue. POSTOPERATIVE DIAGNOSES: Rule out bowel obstruction, was found to have small bowel ileus with the possibility of bowel obstruction and causing mesenteric edema and a distal small bowel obstruction secondary to adhesions, but that was not causing the issue. PROCEDURES: * Small bowel resection. * Primary anastomosis x2. * Exploratory laparotomy. * Lysis of adhesions. * Peritoneal irrigation and lavage. * Intestinal decompression to allow the intestinal fluid to go back into the stomach. * Drainage of ascites. SURGEON: Tommie Herzog MD. WAREHOUSE INSULATION WORKER: None. ANESTHESIA: General. ESTIMATED BLOOD LOSS: Close to 100 mL. DRAINS: One was used. COMPLICATIONS: No complications encountered. DESCRIPTION OF PROCEDURE: The patient was prepped and draped in the usual sterile fashion in the supine position and a vertical midline incision was applied to the right of the umbilicus going supraumbilically, almost to the xiphisternum and to the symphysis pubis below, taken down to the deeper tissues. He was morbidly obese. Surgery was tedious and difficult. The fascia was divided. The abdomen was entered. Ascitic fluid was drained out from all 4 quadrants as well as the pelvis. Approximately 4600 mL of the fluid was removed and then it was realized, there was a bowel segment in the mid portion that was dilated and twisted causing the mesenteric edema, possibly mesenteric thrombosis with developing bowel ischemia. There was a potential for small bowel obstruction in the right lower abdomen from his previous appendectomy surgery, but that was not declaring itself as a bowel obstruction and the procedure was to resect the small bowel that was added potential for ischemia and non-viability and then doing a primary anastomosis after the distal segment of the small bowel also was removed because that also was not very viable, so there were 2 segments of the bowel that were removed and the suture was applied to the distal segment for the first segment and the suture was applied for the distal segment as well. They were submitted for pathology and like I mentioned, a [id number] staple anastomosis was carried out between the proximal and the distal segment. The mesenteric tissue was taken down using the stapling device and LigaSure device and with this being done, the anastomosis being done was reinforced with 3-0 silk suture at the various locations and the flow of the intestine was established proximally to the distal, making sure there was no leakage in the anastomosis. The mesenteric defect was brought together using 2-0 Vicryl suture and thorough irrigation was carried out. The bowel was decompressed and the contents were released back into the abdomen as well. With this being done, thorough irrigation was carried out in all 4 quadrants. Now frame operator was applied in various locations, especially in the right upper quadrant as well as the right lower quadrant and with this being done, the small bowel was replaced back into the abdomen and with its anatomic location, making sure there was no compromise on the anastomosis segment. With this being done, the sponge count, needle count was reported correct. A size 19 Ang drainage was placed to drain the right paracolic gutter going into the pelvis and allowing the tip of the drain to be placed in the left lower quadrant. The drain itself was then secured with a silk suture and glove change was performed and the fascia was brought together using PDS suture in a continuous running fashion, reinforced with Vicryl suture for the subcutaneous tissues and skin was brought together using a stapling device. Dressing was applied. The patient tolerated the procedure well and was taken back to the [facility] or ICU in a critical condition. The details of the procedure, the rationale for surgery, and the indications of the surgery and the potential for outcomes were explained in detail to all the family members and all questions were answered. MD SREEKANTH Mabry/GERA TID: [id number] RECEIPT: [id number] cc: Rochelle Natarajan MD
[2025-02-19] MEDS: VASOPRESSIN 20 UNITS in SODIUM CHL 0.9% 99 ML IV SCH (01:15)
[2025-02-19] MEDS: SODIUM CHLORIDE 0.9% 1,000 ML IV SCH (03:15)
[2025-02-19 03:46] LABS: Base Excess -11.2 mmol/L (-2.0-3.0)
[2025-02-19] MEDS: ALBUMIN 5% 250 ML IV ONE ×2 (03:58→04:55)
[2025-02-19 04:01] LABS: Alanine Aminotransferase 39 U/L (7-40); Alkaline Phosphatase 82 U/L (46-116); Anion Gap 13 (5-15); BUN/Creatinine Ratio 25.4 (10.0-20.0); Magnesium 1.9 mg/dL (1.6-2.6); Potassium 4.7 mmol/L (3.5-5.1); Sodium 137 mmol/L (136-145)
[2025-02-19 04:07] LABS: Aspartate Aminotransferase 171 U/L (13-40); Bilirubin, Total 9.5 mg/dL (0.2-1.0); Calcium 8.3 mg/dL (8.7-10.4); Carbon Dioxide 17 mmol/L (20-31); Chloride 107 mmol/L (98-107); Glucose 168 mg/dL (74-106); Phosphorus 7.2 mg/dL (2.4-5.1); Total Protein 3.7 g/dL (5.7-8.2)
[2025-02-19 04:08] LABS: Blood Urea Nitrogen 102 mg/dL (9-23)
[2025-02-19 04:27] LABS: Hematocrit 41.5 % (41.0-53.0); Hemoglobin 13.6 g/dL (13.5-17.5); Mean Corpuscular Hemoglobin 31.3 pg (28.0-32.0); Mean Corpuscular Hgb Conc. 32.7 g/dL (32.0-36.0); Mean Corpuscular Volume 95.5 fL (80.0-100.0); Platelet Count (auto) 145 10^3/uL (140-450); Red Blood Cells 4.35 10^6/uL (4.5-5.90); Red Cell Distribution Width 22.6 % (11.8-14.3)
[2025-02-19 04:34] LABS: Basophils % (manual) 0 (0.0-2.0); Blast Cells 0; Eosinophils % (manual) 0 (0-7); Metamyelocytes % 0; Myelocytes % 0; Promyelocytes % 0; Reactive Lymphocytes 0
[2025-02-19 04:39] LABS: INR 1.92 (0.9-1.15); Partial Thromboplastin Time 56.7 SEC (24.5-34.5); Prothrombin Time 19.1 sec (9.3-11.8)
--- NOTE | 2025-02-19 05:16 | DVH ---
EXAM: XR Chest, 1 View CLINICAL INDICATION: INTUBATED TECHNIQUE: Frontal view of the chest. COMPARISON: XY CHEST PORTABLE on DOS: 02/18/25, XY CHEST XRAY 1 VIEW on DOS: 02/16/25, XY CHEST XRAY 1 VIEW on DOS: 02/15/25, XY CHEST XRAY 1 VIEW on DOS: 02/15/25, XY CHEST XRAY 1 VIEW on DOS: 02/14/25 FINDINGS: LUNGS AND PLEURAL SPACES: Unremarkable. No consolidation. No pneumothorax. HEART: Cardiomegaly without overt failure. MEDIASTINUM: Unremarkable. Normal mediastinal contour. BONES/JOINTS: Unremarkable. No acute fracture. TUBES, LINES AND DEVICES: Right internal jugular central venous catheter tip in the superior vena c wong. Left internal jugular central venous catheter tip in the superior vena cava. The endotracheal tube (ETT) is in satisfactory position. Enteric tube tip in the stomach. OTHER FINDINGS: . . IMPRESSION: Cardiomegaly without overt failure.
[2025-02-19 05:47] LABS: Anisocytosis Slight; Band Neutrophils % (manual) 7; Lymphocytes % (manual) 7 (10.0-50.0); Monocytes % (manual) 4 (0-12); Platelet Estimate Adequate
[2025-02-19 08:30] LABS: Base Excess -11.6 mmol/L (-2.0-3.0)
[2025-02-19] MEDS: MIDAZOLAM DRIP 50 mg/50mL 50 ML IV ONE (09:18)
[2025-02-19] MEDS: fentaNYL Drip 2500mCg/250mlNS 250 ML IV ONE (09:18)
[2025-02-19] MEDS: MIDAZOLAM DRIP 50 mg/50mL 50 ML IV SCH (09:24)
[2025-02-19] MEDS: fentaNYL Drip 2500mCg/250mlNS 250 ML IV SCH (09:33)
[2025-02-19] MEDS: SODIUM BICARB 50mEq/50ml Vial 100 ML in SOD CHL 0.45% 1,000 ML IV SCH (10:11)
[2025-02-19 11:14] LABS: Protein, Urine 126.2 mg/dL (1-14)
[2025-02-19 11:16] LABS: Creatinine, Urine 114.42 mg/dL (30.0-125.0); Urine Bacteria FEW /hpf (None Seen); Urine Blood 3+ /uL (Negative); Urine Budding Yeast MANY /hpf (None Seen); Urine Color Dark-Yellow (Yellow); Urine Mucus FEW (None Seen); Urine Protein, UAD 1+ (Negative); Urine Protein/Creatinine Ratio 1.1; Urine Specific Gravity 1.026 (1.001-1.035); Urine Squamous Epithelial Cell MOD /hpf (<5); Urine Urobilinogen Normal (Negative); Urine WBC 186 /HPF (0-3)
[2025-02-19 11:22] LABS: Urine Clarity Cloudy (Clear)
--- NOTE | 2025-02-19 11:56 | DVHPN2 ---
Progress Note Date Seen: February 19, 2025 Resident Creating Document: TYRELL TAVAREZ RESIDENT Has the PT tested + for MRSA If YES, has PT been informed?: No Medical Necessity Reason Pt with a Central, PICC or Fol: Yes Subjective Review of Systems This is a 69-year-old male patient with past medical history of recurrent admissions due to hepatic encephalopathy secondary to alcoholic liver cirrhosis, hyperammonemia, history of 2 [place] 30 years back, CKD 3B, diabetes mellitus type 2 for 15 years, heart failure with preserved ejection fraction at 60%, colonoscopy status post polypectomy in 2018, paroxysmal atrial fibrillation, splenomegaly, Patrizia UTI in 02/2024, pneumonia status post intubation in 2017, hypertension and hyperlipidemia who presented to the ER with the chief complaint of dizziness and abdominal pain for the past 4x days. Patient reports that on 02/02 he was helping his son, and was working outside in the sun when he experienced dizziness but did not experience any fall, syncope, confusion. Patient since worsening abdominal distention, and diffuse lower abdominal pain. Reports last bowel movement was on 02/03, says that his abdomen was bloated and therefore he induced vomiting himself denies nausea or vomiting. Denies disorientation and confusion during the past week. Reports compliance to lactulose 30 daily. Patient is A&O x4, alert and oriented to name, place, time and situation. Last drink was 1996. On arrival to the ER, patient was vitally stable, WBC increased from 16-19, platelets 123 which is chronic. BMP showed sodium 146, now 132, potassium elevated at 5.8, was 4.5 on 02/04. BUN/creatinine went 26/1.7 GFR 42 on 02/04/2025, now 60/4.3, GFR 14. Patient had been anion gap metabolic acidosis. Lactic acid elevated at 2.3. Ammonia level 180, was 78 12/28. Patient was recently hospitalized in this facility on 07/13/2024 and was diagnosed with hepatic encephalopathy and diastolic heart failure exacerbation. He was A&O x4. Ammonia was 93. Past medical history: recurrent admissions due to hepatic encephalopathy secondary to alcoholic liver cirrhosis, hyperammonemia, history of 2 [place] 30 years back, CKD 3B, diabetes mellitus type 2, heart failure with preserved ejection fraction at 60%, colonoscopy status post polypectomy in 2019, paroxysmal atrial fibrillation, splenomegaly, UTI, pneumonia status post intubation in 2018, hypertension and hyperlipidemia Past Surgical History: pneumonia status post intubation in 2018 Family History: None Social history: Lives with family, last drink 1986, denies smoking or illicit drug use PCP Dr. Turner Home medications: Lactulose t.i.d., spironolactone 100 mg, Coreg 6.2 5 mg b.i.d. , glipizide, atorvastatin patient recently stopped taking Sildenafil 100 mg, lisinopril 20 mg, Lasix 40 mg, amlodipine 10 mg, Finerenone in 20 mg, fexofenadine 02/06-Patient seen and examined at the bedside. No acute distress. Abdomen has shifting dullness, distended, hyperactive bowel sounds. 02/07-patient seen and examined at the bedside. Lopez catheter placement is still pending. No I&Os noted. Strict I&Os and Lopez catheter placement ordered again. Patient had a bowel movement earlier today. Bicarbonate increased from 13-17. 1 L D5 with 3 ampules of bicarb ordered. BUN/ creatinine increased to 84/4.9 02/08 - patient seen and examined at the bedside. Had 2 bowel movements. Urine output 1350cc per day, WBC trending down to 14 serum bicarb increased to 22. Overnight, Patient did not get D5 with bicarb 1 L. 02/09 - patient seen and examined at the bedside. Reports feeling better. Had a bowel movement. No suprapubic tenderness. 02/16 - seen and examined in the ICU. Urine output 200 cc. Placed left IJ Darrick catheter, hemodialysis pending. 02/19 - patient seen and examined at bedside. 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 Currently intubated and mechanically ventilated. FiO2 60%, peep 10. Follow up with urine electrolytes. Other Systems: Patient seen and examined by myself in rounds with resident, I agree with his assessment and plan Objective vital signs Vital Sign Date Time Temp Pulse Resp B/P (MAP) Pulse Ox O2 Delivery O2 Flow Rate FiO2 02/19/25 11:24 95/59 02/19/25 10:08 130 27 97 60 02/19/25 06:00 Mechanical Ventilator+ 02/19/25 03:10 97.9 97.9 02/18/25 20:00 2 Total Intake and Output 02/18/25 02/18/25 02/19/25 15:00 23:00 07:00 Intake Total 950.80 ml 1578.96 ml 1638.87 ml Output Total 750 ml 950 ml Balance 950.80 ml 828.96 ml 688.87 ml medications Current Medications Medications Dose Ordered Sig/Tanya Route Start Time Stop Time Status Last Admin Dose Admin Metronidazole 100 ml @ 100 mls/hr Q8HR IV 02/06/25 06:00 02/19/25 05:49 100 MLS/HR Carvedilol 6.25 mg Q12HR PO 02/06/25 10:00 02/14/25 21:27 6.25 MG Ondansetron HCl 4 mg Q4HP PRN IV 02/05/25 22:15 02/17/25 22:11 4 MG Acetaminophen 650 mg Q6HP PRN PO 02/05/25 22:15 02/12/25 03:43 650 MG Docusate Sodium 100 mg BID PO 02/06/25 10:00 02/14/25 21:27 100 MG Lactulose 30 ml Q6HR PO 02/06/25 18:00 02/18/25 12:00 30 ML Amino Acids 0 ml @ 0 mls/hr PER PHARMACY IV 02/15/25 14:00 Diagnostic Test (Pha) 1 strip Q6HR 02/16/25 00:00 02/19/25 06:09 1 STRIP Insulin Human Regular FOLLOW SLIDING SCALE Q6HR SC 02/16/25 00:00 02/19/25 06:09 8 UNITS Dextrose 50 ml UD IV 02/15/25 22:00 Hydromorphone HCl 0.25 mg Q4HPRN PRN IV 02/17/25 18:00 02/18/25 17:11 0.25 MG Norepinephrine Bitartrate 250 ml @ 3.75 mls/hr Q24H IV 02/18/25 09:00 02/19/25 11:24 56.25 MLS/HR Pantoprazole Sodium 40 mg BID IV 02/18/25 09:45 02/19/25 10:11 40 MG Fat Emulsion Intravenous 200 ml/Sodium Chloride 40 meq/ Sodium Acetate 40 meq/Potassium Chloride 20 meq/ Potassium Acetate 20 meq/Calcium Gluconate 1.65 meq/Multivitamins 10 ml/Insulin Human Regular 32 units/Amino Acids/ Dextrose 1,413.8683 ml @ 59 mls/hr [id number] IV 02/18/25 22:00 02/19/25 21:59 02/18/25 02:57 59 MLS/HR Meropenem 50 ml @ 17 mls/hr Q12HR IV 02/18/25 22:00 Vasopressin 20 units/Sodium Chloride 100 ml @ 9 mls/hr Q11H7M IV 02/19/25 01:15 02/19/25 01:15 9 MLS/HR Sodium Bicarbonate 100 ml/Sodium Chloride 1,100 ml @ 75 mls/hr [id number] IV 02/19/25 08:30 02/19/25 10:11 75 MLS/HR Midazolam HCl 50 ml @ 1 mls/hr Q24H IV 02/19/25 08:30 02/19/25 09:24 1 MLS/HR Fentanyl Citrate 250 ml @ 2.5 mls/hr Q24H IV 02/19/25 08:30 02/19/25 09:33 2.5 MLS/HR Phenylephrine HCl 250 ml @ 30 mls/hr Q8H20M IV 02/19/25 08:45 Examination Patient lying in bed, intubated and mechanically ventilated. Left IJ Darrick cath placed 02/16, right IJ CVC placed 02/15 General: Well-built, afebrile, scleral icterus, mucosae are moist Cardiovascular: Regular S1 and S2. No murmurs, gallops or rubs. No JVD elevation. 1+ bilateral pedal edema Respiratory: Bilateral decreased aeration on FiO2 60%, peep 10, saturating 97 % Abdomen: Soft, hypoactive bowel sounds, no rebound tenderness, no organomegaly, no masses. Sutures dry clean and intact. Drain attached, with a serosanguineous discharge Genitourinary: Lopez draining clear urine. MSK/skin: Skin is dry and warm laboratory and microbiology Laboratory Tests 02/19/25 03:30 Test 02/19/25 03:30 Range/Units Serum Glucose 168 #H 74-106 mg/dL Microbiology Date/Time Source Procedure Growth Status 02/05/25 20:41 Blood Blood Culture - Final NO GROWTH AFTER 5 DAYS OF INCUBATION. Complete Labs and/or images reviewed: Labs reviewed by me, Image(s) reviewed by me Problem List/Assessment/Plan Problem List/Assessment/Plan Acute kidney injury, likely hemodynamic mediated etiology plus or minus ATN needing HD requiring hemodialysis Uremic encephalopathy Rule out urinary obstruction Acute hypoxic respiratory failure s/p mechanical ventilation 02/18 Sepsis due to SBO versus ileus status post exploratory laparotomy and small- bowel resection 02/18 Septic shock requiring pressor support ? Mesenteric thrombosis Decompensated liver cirrhosis Macrocytic Anemia History of hepatic encephalopathy Hyperkalemia Heart failure with preserved ejection fraction Diabetes mellitus type 2 History of paroxysmal AFib History of pneumonia status and intubation History of ID Hypertension Chronic thrombocytopenia Morbid obesity FENA 0.2 02/19/25 Small bowel series with Gastrografin shows Contrast is identified within the colon by 4 hours. This represents a delayed small bowel transit time without definite obstruction. Clinical correlation advised. Plan: BUN/creatinine stable. Patient underwent hemodialysis 02/16, 02/17, hemodialysis pending for today with sodium bicarb 40 mEq/liter and albumin. Follow up with urine electrolytes Continue half NS with sodium bicarb Patient is status post expiratory laparotomy, underwent 02/18 Continue Lopez placement until Urology clears. Consider Urology evaluation. Patient has received a total of 8 bags of D5 NS and 2 bags of D5W Bladder scan 02/07 showed 150 cc 02/07- patient did not receive 1 L D5 with 3 ampules of bicarb ordered 02/06- 1 L D5 with 3 amps bicarb and 3 bags of albumin administered IR Consulted for Paracentesis, no ascites, preliminary blood culture negative Continue IV antibiotics NPO TPN Plan discussed with patient's son at bedside in which all questions have been answered Case discussed with Dr. Aguilera Plan discussed with: Patient Dietary Evaluation Review Comments: 1) Advance to [facility] 60gm + Renal specific 60gm as medically feasible 2) Refer to CDE on DC 3) Continue current plan of care Expected Outcomes/Goals: To meet 75% estimated needs fu 2-3 days TYRELL TAVAREZ February 19, 2025 11:56 JOAQUIM AGUILERA MD February 19, 2025 14:45
--- NOTE | 2025-02-19 13:53 | DVHSR ---
APPROVED REPORT EXAM: Two-dimensional and M-mode echocardiogram with Doppler and color Doppler. Blood Pressure: 105/70 mmHg INDICATION Atrial Fibrillation RISK FACTORS Height: 5'5", Weight: 228 DIMENSIONS LVDd4.7 (3.8-5.7cm)LA (2D)5.0 (1.9-4.0cm)Aortic Root3.5 (2.0-3.7cm) LVDs3.0 (2.5-4.0cm)LA (MM) (1.9-4.0cm)Aortic Cusp Exc2.0 (1.5-2.0cm) EF (%) 65.0 (55-70%)Rt. Atrium (1.9-4.0cm)Asc. Aorta3.2 cm IVSd1.3 (0.7-1.1cm)RV (D) (1.8-2.4cm) PWd0.6 (0.7-1.1cm) Mitral Valve MitralMitral Stenosis E/A ratio0.02D MVAcm2 Aortic Valve Aortic ValveAortic Stenosis V10.93m/[place] Mean GR.4mmHg V21.14m/[place] Peak GR.5mmHg LVOT Diameter2.3 (1.8-2.4cm)Doppler AVA3.39cm2 Pulmonic Valve V21.00m/s Other Information Quality : Technically LimitedRhythm : Technically limited study due to body habitus and on vent. Conclusion lvef 65% moderate LVH ,septal hypertrophy normal RV function, RV enlarged mild left atrium enlarged milmd mild mitral regurg
--- NOTE | 2025-02-19 14:22 | DVHPNRES ---
Progress Note Date Seen: February 19, 2025 Resident Creating Document: FEDERICO CLARKE RESIDENT Has the PT tested + for MRSA If YES, has PT been informed?: No Medical Necessity Reason Pt with a Central, PICC or Fol: Yes The following are medically ne: Central Line, Lopez Catheter Subjective Review of Systems This is a 69-year-old male patient with past medical history of recurrent admissions due to hepatic encephalopathy secondary to alcoholic liver cirrhosis, hyperammonemia, history of 2 [place] 30 years back, CKD 3B, diabetes mellitus type 2 for 15 years, heart failure with preserved ejection fraction at 60%, colonoscopy status post polypectomy in 2019, paroxysmal atrial fibrillation, splenomegaly, Patrizia UTI in 02/2024, pneumonia status post intubation in 2018, hypertension and hyperlipidemia who presented to the ER with the chief complaint of dizziness and abdominal pain for the past 4x days. Patient reports that on 02/02 he was helping his son, and was working outside in the sun when he experienced dizziness but did not experience any fall, syncope, confusion. Patient since worsening abdominal distention, and diffuse lower abdominal pain. Reports last bowel movement was on 02/03, says that his abdomen was bloated and therefore he induced vomiting himself denies nausea or vomiting. Denies disorientation and confusion during the past week. Reports compliance to lactulose 30 daily. Patient is A&O x4, alert and oriented to name, place, time and situation. Last drink was 1996. On arrival to the ER, patient was vitally stable, WBC increased from 16-19, platelets 123 which is chronic. BMP showed sodium 146, now 132, potassium elevated at 5.8, was 4.5 on 02/04. BUN/creatinine went 26/1.7 GFR 42 on 02/04/2025, now 60/4.3, GFR 14. Patient had been anion gap metabolic acidosis. Lactic acid elevated at 2.3. Ammonia level 180, was 78 12/28. Patient was recently hospitalized in this facility on 07/13/2024 and was diagnosed with hepatic encephalopathy and diastolic heart failure exacerbation. He was A&O x4. Ammonia was 93. Past medical history: recurrent admissions due to hepatic encephalopathy secondary to alcoholic liver cirrhosis, hyperammonemia, history of 2 [place] 30 years back, CKD 3B, diabetes mellitus type 2, heart failure with preserved ejection fraction at 60%, colonoscopy status post polypectomy in 2019, paroxysmal atrial fibrillation, splenomegaly, UTI, pneumonia status post intubation in 2018, hypertension and hyperlipidemia Past Surgical History: pneumonia status post intubation in 2018 Family History: None Social history: Lives with family, last drink 1986, denies smoking or illicit drug use PCP Dr. Turner Home medications: Lactulose t.i.d., spironolactone 100 mg, Coreg 6.2 5 mg b.i.d. , glipizide, atorvastatin patient recently stopped taking Sildenafil 100 mg, lisinopril 20 mg, Lasix 40 mg, amlodipine 10 mg, Finerenone in 20 mg, fexofenadin Patient seen and examined at bedside. 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 Currently intubated and mechanically ventilated. FiO2 60%, peep 8, Tidal volume 500 ml and RR 24. S/P Exploratory laparotomy with bowel resection and anastomosis day 1 Objective vital signs Vital Sign Date Time Temp Pulse Resp B/P (MAP) Pulse Ox O2 Delivery O2 Flow Rate FiO2 02/19/25 12:30 127 27 85/61 (69) 97 60 02/19/25 12:00 Mechanical Ventilator+ 02/19/25 03:10 97.9 97.9 02/18/25 20:00 2 Total Intake and Output 02/18/25 02/18/25 02/19/25 15:00 23:00 07:00 Intake Total 950.80 ml 1578.96 ml 1638.87 ml Output Total 750 ml 950 ml Balance 950.80 ml 828.96 ml 688.87 ml medications Current Medications Medications Dose Ordered Sig/Tanya Route Start Time Stop Time Status Last Admin Dose Admin Metronidazole 100 ml @ 100 mls/hr Q8HR IV 02/06/25 06:00 02/19/25 05:49 100 MLS/HR Carvedilol 6.25 mg Q12HR PO 02/06/25 10:00 02/14/25 21:27 6.25 MG Ondansetron HCl 4 mg Q4HP PRN IV 02/05/25 22:15 02/17/25 22:11 4 MG Acetaminophen 650 mg Q6HP PRN PO 02/05/25 22:15 02/12/25 03:43 650 MG Docusate Sodium 100 mg BID PO 02/06/25 10:00 02/14/25 21:27 100 MG Lactulose 30 ml Q6HR PO 02/06/25 18:00 02/18/25 12:00 30 ML Amino Acids 0 ml @ 0 mls/hr PER PHARMACY IV 02/15/25 14:00 Diagnostic Test (Pha) 1 strip Q6HR 02/16/25 00:00 02/19/25 06:09 1 STRIP Insulin Human Regular FOLLOW SLIDING SCALE Q6HR SC 02/16/25 00:00 02/19/25 06:09 8 UNITS Dextrose 50 ml UD IV 02/15/25 22:00 Hydromorphone HCl 0.25 mg Q4HPRN PRN IV 02/17/25 18:00 02/18/25 17:11 0.25 MG Norepinephrine Bitartrate 250 ml @ 3.75 mls/hr Q24H IV 02/18/25 09:00 02/19/25 11:24 56.25 MLS/HR Pantoprazole Sodium 40 mg BID IV 02/18/25 09:45 02/19/25 10:11 40 MG Fat Emulsion Intravenous 200 ml/Sodium Chloride 40 meq/ Sodium Acetate 40 meq/Potassium Chloride 20 meq/ Potassium Acetate 20 meq/Calcium Gluconate 1.65 meq/Multivitamins 10 ml/Insulin Human Regular 32 units/Amino Acids/ Dextrose 1,413.8683 ml @ 59 mls/hr [id number] IV 02/18/25 22:00 02/19/25 21:59 02/18/25 02:57 59 MLS/HR Meropenem 50 ml @ 17 mls/hr Q12HR IV 02/18/25 22:00 02/19/25 11:57 17 MLS/HR Vasopressin 20 units/Sodium Chloride 100 ml @ 9 mls/hr Q11H7M IV 02/19/25 01:15 02/19/25 01:15 9 MLS/HR Sodium Bicarbonate 100 ml/Sodium Chloride 1,100 ml @ 75 mls/hr [id number] IV 02/19/25 08:30 02/19/25 10:11 75 MLS/HR Midazolam HCl 50 ml @ 1 mls/hr Q24H IV 02/19/25 08:30 02/19/25 09:24 1 MLS/HR Fentanyl Citrate 250 ml @ 2.5 mls/hr Q24H IV 02/19/25 08:30 02/19/25 09:33 2.5 MLS/HR Phenylephrine HCl 250 ml @ 30 mls/hr Q8H20M IV 02/19/25 08:45 Fat Emulsion Intravenous 200 ml/Sodium Chloride 40 meq/ Potassium Acetate 10 meq/Magnesium Sulfate 4 meq/ Multivitamins 10 ml/Insulin Human Regular 32 units/ Amino Acids/ Dextrose 1,226.32 ml @ 51 mls/hr Q24H3M IV 02/19/25 22:00 02/20/25 21:59 Examination Physical exam: General: RASS -3, afebrile, mucosae are moist Cardiovascular: Normal S1 and S2. No murmurs, gallops or rubs Respiratory: Mechanically assisted ventilation, equal bilateral airway entree. Bilateral crackles Abdomen: Soft, nontender, no organomegaly, normal bowel sounds MSK/skin: Mobilization of limbs cannot be evaluated. Skin is dry and warm. Bilateral edema +. Neurological: Orientation cannot be assessed. No apparent motor no sensitive deficits. Pupils are isocoric and reactive laboratory and microbiology Laboratory Tests 02/19/25 03:30 Test 02/19/25 03:30 Range/Units Serum Glucose 168 #H 74-106 mg/dL Microbiology Date/Time Source Procedure Growth Status 02/19/25 01:30 Sputum Gram Stain - Final Resulted 02/19/25 01:30 Sputum Respiratory Culture Pending Resulted 02/18/25 22:30 Abdomen Gram Stain - Final Resulted 02/18/25 22:30 Abdomen Anaerobic Culture Pending Resulted 02/18/25 22:30 Abdomen Aerobic Culture Pending Resulted 02/05/25 20:41 Blood Blood Culture - Final NO GROWTH AFTER 5 DAYS OF INCUBATION. Complete Labs and/or images reviewed: Labs reviewed by me, Image(s) reviewed by me Problem List/Assessment/Plan Problem List/Assessment/Plan Assessment and plan: NEURO: Acute metabolic encephalopathy Hyperammonemia On mechanical ventilation RASS score: -3 CARDIOVASCULAR: Possible acute on chronic diastolic heart failure Paroxysmal atrial fibrillation with secondary hypercoagulable state: on amiodarone drip - Echo on 02/19 revealed lvef 65% .moderate LVH ,septal hypertrophy, normal RV function, RV enlarged mild left atrium enlarged PULMONARY: Acute hypoxic respiratory failure, status post mechanical ventilation GASTROINTESTINAL: Possible Ileus/SBO SBO likely due to adhesion from previous surgery appendectomy 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 The distal small bowel loops are relatively nondilated. There is mesenteric edema and stranding as well as small bowel wall thickening. These findings are suggestive of at least a partial small bowel obstruction. Cirrhotic Morphology liver with sequela portal hypertension including extensive perisplenic varices. Small amount of ascites fluid which may be secondary to the underlying cirrhosis and/or small bowel obstruction. - Gastrografin small bowel series on 02/14/25 showed Contrast only noted in the stomach none in the small bowel. Persistent gaseous distention of the small bowel. - S/P exploratory laparotomy with small-bowel resection and anastomosis, day 1 GENITOURINARY: Acute kidney injury, likely hemodynamic mediated etiology and possible ATN requiring hemodialysis Uremic encephalopathy Rule out urinary obstruction Anion gap metabolic acidosis likely due to lactic acidosis and kidney impairment - Patient is on bicarbonate drip - Scheduled for HD tomorrow ENDOCRINE: Type 2 diabetes mellitus, hemoglobin A1c - Mild sliding scale of insulin METABOLIC: Morbid obesity, BMI 38 kg / m2 Severe protein calorie malnutrition, albumin 2 HEME: Thrombocytopenia and coagulopathy likely due to cirrhosis INFECTIOUS DISEASE: Sepsis with septic shock secondary to bowel ischemia likely due to SBO versus mesenteric vein thrombosis Lactic acidosis secondary to cirrhosis and bowel ischemia - Pending blood culture, urinary bacterial culture - Patient is on IV vancomycin as per pharmacy, IV meropenem 500 mg q.12 hours and IV metronidazole 500 mg Q 8HR DIET: NPO, TPN per pharmacy DVT prophylax: SCD GI prophylaxis: Protonix Bowel regimen: Code status: Full code LINES/DRAINS/ACCESS: ETT: Intubated on 02/18/25 IV access: Right IJ central line with triple-lumen placed on 02/15/25, left IJ Darrick catheter placed on 02/16/25 Drips: Norepinephrine, vasopressin, phenylephrine, Versed, fentanyl Lopez catheter: placed on 02/03/25 DISPOSITION: ICU Patient's status discussed with Son, acute care certified nursing assistant time spent more than 81 minutes, including patient care, chart review, and updating the family. Excluding any procedures. Case discussed with Dr. Vasquez Plan discussed with: Son, Other (RN) My Orders My Orders Orders - FEDERICO CLARKE Procedure Category Date Status Time Insert Rectal Tube ORDERS 02/19/25 Transmitted 12:08 Dietary Evaluation Review Comments: 1) Advance to [facility] 60gm + Renal specific 60gm as medically feasible 2) Refer to CDE on DC 3) Continue current plan of care Expected Outcomes/Goals: To meet 75% estimated needs fu 2-3 days Date of Service: February 19, 2025 Billing Provider: WISAM VASQUEZ MD Common Visit Codes: [id number] CARE 30-74 MIN, [id number] CARE-EACH +30MIN FEDERICO CLARKE February 19, 2025 14:22 WISAM VASQUEZ MD February 20, 2025 13:58
--- NOTE | 2025-02-19 14:25 | DVHPN2 ---
Progress Note - Dictate Date Seen: February 19, 2025 Has the PT tested + for MRSA If YES, has PT been informed?: No Medical Necessity Reason Pt with a Central, PICC or Fol: Yes Subjective 69-year-old male postop day 1. S/P laparotomy with resection of small bowel for focal twisting and mesenteric ischemia and recurrent bowel obstruction and distention Pt has 69 y o male wth history of hepatic encephalopathy secondary to alcoholic liver cirrhosis, hyperammonemia, history of 2 PA 30 years back, CKD 3B, diabetes mellitus type 2, heart failure with preserved ejection fraction at 60%, Patient is currently intubated sedated running slightly low blood pressures he is on two pressors No active GI bleeding is reported today vital signs Vital Sign Date Time Temp Pulse Resp B/P (MAP) Pulse Ox O2 Delivery O2 Flow Rate FiO2 02/19/25 12:30 127 27 85/61 (69) 97 60 02/19/25 12:00 Mechanical Ventilator+ 02/19/25 03:10 97.9 97.9 02/18/25 20:00 2 Total Intake and Output 02/18/25 02/18/25 02/19/25 14:59 22:59 06:59 Intake Total 1207.30 ml 1661.12 ml 1638.87 ml Output Total 750 ml 950 ml Balance 1207.30 ml 911.12 ml 688.87 ml medications Current Medications Medications Dose Ordered Sig/Tanya Route Start Time Stop Time Status Last Admin Dose Admin Metronidazole 100 ml @ 100 mls/hr Q8HR IV 02/06/25 06:00 02/19/25 05:49 100 MLS/HR Carvedilol 6.25 mg Q12HR PO 02/06/25 10:00 02/14/25 21:27 6.25 MG Ondansetron HCl 4 mg Q4HP PRN IV 02/05/25 22:15 02/17/25 22:11 4 MG Acetaminophen 650 mg Q6HP PRN PO 02/05/25 22:15 02/12/25 03:43 650 MG Docusate Sodium 100 mg BID PO 02/06/25 10:00 02/14/25 21:27 100 MG Lactulose 30 ml Q6HR PO 02/06/25 18:00 02/18/25 12:00 30 ML Amino Acids 0 ml @ 0 mls/hr PER PHARMACY IV 02/15/25 14:00 Diagnostic Test (Pha) 1 strip Q6HR 02/16/25 00:00 02/19/25 06:09 1 STRIP Insulin Human Regular FOLLOW SLIDING SCALE Q6HR SC 02/16/25 00:00 02/19/25 06:09 8 UNITS Dextrose 50 ml UD IV 02/15/25 22:00 Hydromorphone HCl 0.25 mg Q4HPRN PRN IV 02/17/25 18:00 02/18/25 17:11 0.25 MG Norepinephrine Bitartrate 250 ml @ 3.75 mls/hr Q24H IV 02/18/25 09:00 02/19/25 11:24 56.25 MLS/HR Pantoprazole Sodium 40 mg BID IV 02/18/25 09:45 02/19/25 10:11 40 MG Fat Emulsion Intravenous 200 ml/Sodium Chloride 40 meq/ Sodium Acetate 40 meq/Potassium Chloride 20 meq/ Potassium Acetate 20 meq/Calcium Gluconate 1.65 meq/Multivitamins 10 ml/Insulin Human Regular 32 units/Amino Acids/ Dextrose 1,413.8683 ml @ 59 mls/hr [id number] IV 02/18/25 22:00 02/19/25 21:59 02/18/25 02:57 59 MLS/HR Meropenem 50 ml @ 17 mls/hr Q12HR IV 02/18/25 22:00 02/19/25 11:57 17 MLS/HR Vasopressin 20 units/Sodium Chloride 100 ml @ 9 mls/hr Q11H7M IV 02/19/25 01:15 02/19/25 01:15 9 MLS/HR Sodium Bicarbonate 100 ml/Sodium Chloride 1,100 ml @ 75 mls/hr [id number] IV 02/19/25 08:30 02/19/25 10:11 75 MLS/HR Midazolam HCl 50 ml @ 1 mls/hr Q24H IV 02/19/25 08:30 02/19/25 09:24 1 MLS/HR Fentanyl Citrate 250 ml @ 2.5 mls/hr Q24H IV 02/19/25 08:30 02/19/25 09:33 2.5 MLS/HR Phenylephrine HCl 250 ml @ 30 mls/hr Q8H20M IV 02/19/25 08:45 Fat Emulsion Intravenous 200 ml/Sodium Chloride 40 meq/ Potassium Acetate 10 meq/Magnesium Sulfate 4 meq/ Multivitamins 10 ml/Insulin Human Regular 32 units/ Amino Acids/ Dextrose 1,226.32 ml @ 51 mls/hr Q24H3M IV 02/19/25 22:00 02/20/25 21:59 objective General: Well-built, obese, slight scleral icterus, mucosae are moist intubated sedated Cardiovascular: Regular S1 and S2 rrr trace bilateral pedal edema Respiratory: Normal B/L air entry on room air. Clear lung sounds on auscultation Abdomen: Soft, dressing is dry, absent bowel sounds, no rebound tenderness, no organomegaly, no masses; well-healed supraumbilical midline scar Neurological: No motor, no sensitive deficits, normal speech. Pupils are isocoric and reactive. Psych/Mental Status: A/Ox3 laboratory and microbiology Laboratory Tests 02/19/25 03:30 Test 02/19/25 03:30 Range/Units Serum Glucose 168 #H 74-106 mg/dL Problems(with codes): (1) Altered level of consciousness (2) Acute renal insufficiency (3) Ileus (4) Cirrhosis of liver (5) GERD (gastroesophageal reflux disease) (6) UTI (urinary tract infection) (7) Abdominal pain Prognosis Plan Continue supportive care IV TPN IV antibiotics Monitor labs Correct coagulopathy if required Dietary Evaluation Review Comments: 1) [facility] + Renal specific 60gm as medically feasible 2) Refer to CDE on DC 3) Continue current plan of care Expected Outcomes/Goals: To meet 75% estimated needs fu 2-3 days Plan discussed with: Other (ICU Nurse) ZENAIDA PENA MD February 19, 2025 14:25
[2025-02-19] MEDS: PHENYLEPHRINE IV 250 ML IV SCH (14:44)
--- NOTE | 2025-02-19 15:10 | DVHPN2 ---
Progress Note Date Seen: February 19, 2025 Has the PT tested + for MRSA If YES, has PT been informed?: No Medical Necessity Reason Pt with a Central, PICC or Fol: Yes Objective vital signs Vital Sign Date Time Temp Pulse Resp B/P (MAP) Pulse Ox O2 Delivery O2 Flow Rate FiO2 02/19/25 14:44 78/56 02/19/25 12:30 127 27 97 60 02/19/25 12:00 Mechanical Ventilator+ 02/19/25 03:10 97.9 97.9 02/18/25 20:00 2 Total Intake and Output 02/18/25 02/18/25 02/19/25 15:00 23:00 07:00 Intake Total 950.80 ml 1578.96 ml 1638.87 ml Output Total 750 ml 950 ml Balance 950.80 ml 828.96 ml 688.87 ml medications Current Medications Medications Dose Ordered Sig/Tanya Route Start Time Stop Time Status Last Admin Dose Admin Metronidazole 100 ml @ 100 mls/hr Q8HR IV 02/06/25 06:00 02/19/25 14:45 100 MLS/HR Carvedilol 6.25 mg Q12HR PO 02/06/25 10:00 02/14/25 21:27 6.25 MG Ondansetron HCl 4 mg Q4HP PRN IV 02/05/25 22:15 02/17/25 22:11 4 MG Acetaminophen 650 mg Q6HP PRN PO 02/05/25 22:15 02/12/25 03:43 650 MG Docusate Sodium 100 mg BID PO 02/06/25 10:00 02/14/25 21:27 100 MG Lactulose 30 ml Q6HR PO 02/06/25 18:00 02/18/25 12:00 30 ML Amino Acids 0 ml @ 0 mls/hr PER PHARMACY IV 02/15/25 14:00 Diagnostic Test (Pha) 1 strip Q6HR 02/16/25 00:00 02/19/25 06:09 1 STRIP Insulin Human Regular FOLLOW SLIDING SCALE Q6HR SC 02/16/25 00:00 02/19/25 14:21 16 UNITS Dextrose 50 ml UD IV 02/15/25 22:00 Hydromorphone HCl 0.25 mg Q4HPRN PRN IV 02/17/25 18:00 02/18/25 17:11 0.25 MG Norepinephrine Bitartrate 250 ml @ 3.75 mls/hr Q24H IV 02/18/25 09:00 02/19/25 11:24 56.25 MLS/HR Pantoprazole Sodium 40 mg BID IV 02/18/25 09:45 02/19/25 10:11 40 MG Fat Emulsion Intravenous 200 ml/Sodium Chloride 40 meq/ Sodium Acetate 40 meq/Potassium Chloride 20 meq/ Potassium Acetate 20 meq/Calcium Gluconate 1.65 meq/Multivitamins 10 ml/Insulin Human Regular 32 units/Amino Acids/ Dextrose 1,413.8683 ml @ 59 mls/hr [id number] IV 02/18/25 22:00 02/19/25 21:59 02/18/25 02:57 59 MLS/HR Meropenem 50 ml @ 17 mls/hr Q12HR IV 02/18/25 22:00 02/19/25 11:57 17 MLS/HR Vasopressin 20 units/Sodium Chloride 100 ml @ 9 mls/hr Q11H7M IV 02/19/25 01:15 02/19/25 01:15 9 MLS/HR Sodium Bicarbonate 100 ml/Sodium Chloride 1,100 ml @ 75 mls/hr [id number] IV 02/19/25 08:30 02/19/25 10:11 75 MLS/HR Midazolam HCl 50 ml @ 1 mls/hr Q24H IV 02/19/25 08:30 02/19/25 09:24 1 MLS/HR Fentanyl Citrate 250 ml @ 2.5 mls/hr Q24H IV 02/19/25 08:30 02/19/25 09:33 2.5 MLS/HR Phenylephrine HCl 250 ml @ 30 mls/hr Q8H20M IV 02/19/25 08:45 02/19/25 14:44 30 MLS/HR Fat Emulsion Intravenous 200 ml/Sodium Chloride 40 meq/ Potassium Acetate 10 meq/Magnesium Sulfate 4 meq/ Multivitamins 10 ml/Insulin Human Regular 32 units/ Amino Acids/ Dextrose 1,226.32 ml @ 51 mls/hr Q24H3M IV 02/19/25 22:00 02/20/25 21:59 laboratory and microbiology Laboratory Tests 02/19/25 03:30 Test 02/19/25 03:30 Range/Units Serum Glucose 168 #H 74-106 mg/dL Microbiology Date/Time Source Procedure Growth Status 02/19/25 01:30 Sputum Gram Stain - Final Resulted 02/19/25 01:30 Sputum Respiratory Culture Pending Resulted 02/18/25 22:30 Abdomen Gram Stain - Final Resulted 02/18/25 22:30 Abdomen Anaerobic Culture Pending Resulted 02/18/25 22:30 Abdomen Aerobic Culture Pending Resulted 02/05/25 20:41 Blood Blood Culture - Final NO GROWTH AFTER 5 DAYS OF INCUBATION. Complete Problem List/Assessment/Plan Problem List/Assessment/Plan INTUBATED HEMODYNAMICALLY LABILE ON VASOPRESSOR SUPPORT DIALYSIS AND BLOOD THINNERS ON HOLD ABD SOFT DISTENDED FROM ASCITES DRAIN 200 CC SEROSANGUINEOUS KEEP NPO NG NURSE AND FAMILY AT BEDSIDE CONTINUE CLOSE OBSERVATION CONDITION CRITICAL Plan discussed with: Other My Orders My Orders Orders - MARIANA PENA MD Procedure Category Date Status Time Obtain Consent For: ORDERS 02/18/25 Transmitted 15:10 Obtain Consent For JANET 02/18/25 In Process Anesthesia 15:10 Anaerobic Culture GRECIA 02/18/25 In Process 22:34 Gram Stain GRECIA 02/18/25 In Process 22:34 Routine Bacterial GRECIA 02/18/25 In Process Culture 22:34 Sodium Chl 0.9% PHA 02/19/25 In Process (So... W/Vasopressin 01:15 Dietary Evaluation Review Comments: 1) [facility] + Renal specific 60gm as medically feasible 2) Refer to CDE on DC 3) Continue current plan of care Expected Outcomes/Goals: To meet 75% estimated needs fu 2-3 days MARIANA PENA MD February 19, 2025 15:09
[2025-02-19] MEDS ORDERED: VANCOMYCIN PER PHARMACY 0 MG IV SCH (16:15)
[2025-02-19 16:39] LABS: Lactic Acid w/Reflex 4.2 mmol/L (0.4-2.0)
[2025-02-19] MEDS: VANCOMYCIN 1GM/200ML PM 200 ML IV ONE (17:17)
--- NOTE | 2025-02-19 17:19 | MEDREC ---
[facility] Intervention Section I [facility] Intervention: Duplication of therapy (PLEASE CONSIDER D/C FLAGYL SINCE BOTH MEROPENEM AND FLAGYL COVER FOR ANAEROBE ORGANISMS (DUPLICATE) ) KATHY MARTINEZ PHARMACIST February 19, 2025 17:19
--- NOTE | 2025-02-19 17:47 | DVHPN2 ---
Consult Progress Note Subjective Other Systems: Patient in sinus tachycardia on surveillance system monitor Remains chemically sedated and mechanically ventilated Objective vital signs Vital Sign Date Time Temp Pulse Resp B/P (MAP) Pulse Ox O2 Delivery O2 Flow Rate FiO2 02/19/25 16:30 119 25 91/50 (64) 97 89/58 (68) 02/19/25 16:00 Mechanical Ventilator+ 60 60 02/19/25 13:00 99.2 99.2 02/18/25 20:00 2 Total Intake and Output 02/18/25 02/18/25 02/19/25 15:00 23:00 07:00 Intake Total 950.80 ml 1578.96 ml 1638.87 ml Output Total 750 ml 950 ml Balance 950.80 ml 828.96 ml 688.87 ml medications Current Medications Medications Dose Ordered Sig/Tanya Route Start Time Stop Time Status Last Admin Dose Admin Metronidazole 100 ml @ 100 mls/hr Q8HR IV 02/06/25 06:00 02/19/25 14:45 100 MLS/HR Acetaminophen 650 mg Q6HP PRN PO 02/05/25 22:15 02/12/25 03:43 650 MG Amino Acids 0 ml @ 0 mls/hr PER PHARMACY IV 02/15/25 14:00 Diagnostic Test (Pha) 1 strip Q6HR 02/16/25 00:00 02/19/25 06:09 1 STRIP Insulin Human Regular FOLLOW SLIDING SCALE Q6HR SC 02/16/25 00:00 02/19/25 14:21 16 UNITS Dextrose 50 ml UD IV 02/15/25 22:00 Norepinephrine Bitartrate 250 ml @ 3.75 mls/hr Q24H IV 02/18/25 09:00 02/19/25 15:59 56.25 MLS/HR Pantoprazole Sodium 40 mg BID IV 02/18/25 09:45 02/19/25 10:11 40 MG Fat Emulsion Intravenous 200 ml/Sodium Chloride 40 meq/ Sodium Acetate 40 meq/Potassium Chloride 20 meq/ Potassium Acetate 20 meq/Calcium Gluconate 1.65 meq/Multivitamins 10 ml/Insulin Human Regular 32 units/Amino Acids/ Dextrose 1,413.8683 ml @ 59 mls/hr [id number] IV 02/18/25 22:00 02/19/25 21:59 02/18/25 02:57 59 MLS/HR Meropenem 50 ml @ 17 mls/hr Q12HR IV 02/18/25 22:00 02/19/25 11:57 17 MLS/HR Vasopressin 20 units/Sodium Chloride 100 ml @ 9 mls/hr Q11H7M IV 02/19/25 01:15 02/19/25 01:15 9 MLS/HR Sodium Bicarbonate 100 ml/Sodium Chloride 1,100 ml @ 75 mls/hr [id number] IV 02/19/25 08:30 02/19/25 10:11 75 MLS/HR Midazolam HCl 50 ml @ 1 mls/hr Q24H IV 02/19/25 08:30 02/19/25 17:06 4 MLS/HR Fentanyl Citrate 250 ml @ 2.5 mls/hr Q24H IV 02/19/25 08:30 02/19/25 09:33 2.5 MLS/HR Phenylephrine HCl 250 ml @ 30 mls/hr Q8H20M IV 02/19/25 08:45 02/19/25 14:44 30 MLS/HR Fat Emulsion Intravenous 200 ml/Sodium Chloride 40 meq/ Potassium Acetate 10 meq/Magnesium Sulfate 4 meq/ Multivitamins 10 ml/Insulin Human Regular 32 units/ Amino Acids/ Dextrose 1,226.32 ml @ 51 mls/hr Q24H3M IV 02/19/25 22:00 02/20/25 21:59 Vancomycin HCl 0 ml @ 0 mls/hr UD IV 02/19/25 16:15 UNV Examination: GENERAL:Abnormal, LUNGS:Abnormal (Mechanically ventilated), CVS:Normal, NEURO:Abnormal (Chemically sedated) laboratory and microbiology Laboratory Tests 02/19/25 03:30 Test 02/19/25 17:25 Range/Units Serum Glucose Pending Problem List/Assessment/Plan Problem List/Assessment/Plan AFib with RVR, ?new onset, now sinus tachycardia Hx of hypertension, currently hypotension on vasopressors Chronic HFpEF, NYHA class III Possible Sepsis Acute SBO Liver cirrhosis with ascites Acute renal failure Positive occult Thrombocytopenia Hyperlipidemia Diabetes Obesity Plan/Recommendation ( ): Transthoracic echocardiogram reveals EF 65%. Chads Vasc score 4, HAS -BLED score 4. Given positive occult blood, we will hold off with anticoagulation therapy, suggesting SCD for now. The patient is on IV amiodarone, unable to transition to oral given acute SBO. Continue with vasopressors for hemodynamic support. Close cardiac surveillance. Thank you for allowing us to care for this patient. Please call with any questions or concerns. Critical care time spent: 38 minutes. This medical document was created using an electronic medical record system with voice recognition software and computerized dictation system. Although this document has been carefully reviewed, there might still be some phonetic and typographical errors. Occasional wrong-word or ``sound-alike substitutions may have occurred due to the inherent limitations of voice recognition software. These areas are purely typographical due to imperfections of the software programs and do not reflect any compromise in the patient's medical care. Please read the chart carefully and recognize, using context, where these substitutions have occurred. Plan discussed with: Other (Bedside RN) Dietary Evaluation Review Comments: 1) Advance to [facility] 60gm + Renal specific 60gm as medically feasible 2) Refer to CDE on DC 3) Continue current plan of care Expected Outcomes/Goals: To meet 75% estimated needs fu 2-3 days Date of Service: February 19, 2025 Billing Provider: PEG LEVI Common Visit Codes: [id number] CARE 30-74 MIN PEG LEVI February 19, 2025 17:47
[2025-02-19 17:59] LABS: Chloride 104 mmol/L (98-107)
[2025-02-19 18:00] LABS: Anion Gap 14 (5-15)
[2025-02-19 18:08] LABS: BUN/Creatinine Ratio 25.4 (10.0-20.0)
[2025-02-19] MEDS ORDERED: DEXTROSE (50%) 50ML SYRG IV PRN (18:30)
[2025-02-19 18:43] LABS: Calcium 7.9 mg/dL (8.7-10.4); Carbon Dioxide 16 mmol/L (20-31); Potassium 5.3 mmol/L (3.5-5.1); Sodium 134 mmol/L (136-145)
[2025-02-19 18:45] LABS: Blood Urea Nitrogen 107 mg/dL (9-23); Glucose 401 mg/dL (74-106)
[2025-02-19] MEDS: ACCU-CHEK COMFORT CURVE STRIP VI SCH (22:00)
[2025-02-19] MEDS: SODIUM BICARB 8.4% 50Meq/50ml SYR Vial IV ONE (22:00)
[2025-02-19] MEDS: CALCIUM GLUC 1,000mg/50ml-NS 50 ML IV ONE (22:00)
--- NOTE | 2025-02-19 22:05 | DVHPN2 ---
Progress Note - Dictate Date Seen: February 19, 2025 Has the PT tested + for MRSA If YES, has PT been informed?: No Medical Necessity Reason Pt with a Central, PICC or Fol: Yes The following are medically ne: Central Line, Lopez Catheter vital signs Vital Sign Date Time Temp Pulse Resp B/P (MAP) Pulse Ox O2 Delivery O2 Flow Rate FiO2 02/19/25 20:45 106 27 89/56 (67) 98 60 02/19/25 20:00 Mechanical Ventilator+ 02/19/25 13:00 99.2 99.2 02/18/25 20:00 2 Total Intake and Output 02/18/25 02/18/25 02/19/25 15:00 23:00 07:00 Intake Total 950.80 ml 1578.96 ml 1779.78 ml Output Total 750 ml 950 ml Balance 950.80 ml 828.96 ml 829.78 ml medications Current Medications Medications Dose Ordered Sig/Tanya Route Start Time Stop Time Status Last Admin Dose Admin Metronidazole 100 ml @ 100 mls/hr Q8HR IV 02/06/25 06:00 02/19/25 14:45 100 MLS/HR Acetaminophen 650 mg Q6HP PRN PO 02/05/25 22:15 02/12/25 03:43 650 MG Amino Acids 0 ml @ 0 mls/hr PER PHARMACY IV 02/15/25 14:00 Norepinephrine Bitartrate 250 ml @ 3.75 mls/hr Q24H IV 02/18/25 09:00 02/19/25 20:06 56.25 MLS/HR Pantoprazole Sodium 40 mg BID IV 02/18/25 09:45 02/19/25 10:11 40 MG Meropenem 50 ml @ 17 mls/hr Q12HR IV 02/18/25 22:00 02/19/25 11:57 17 MLS/HR Vasopressin 20 units/Sodium Chloride 100 ml @ 9 mls/hr Q11H7M IV 02/19/25 01:15 02/19/25 01:15 9 MLS/HR Sodium Bicarbonate 100 ml/Sodium Chloride 1,100 ml @ 75 mls/hr [id number] IV 02/19/25 08:30 02/19/25 10:11 75 MLS/HR Midazolam HCl 50 ml @ 1 mls/hr Q24H IV 02/19/25 08:30 02/19/25 17:06 4 MLS/HR Fentanyl Citrate 250 ml @ 2.5 mls/hr Q24H IV 02/19/25 08:30 02/19/25 09:33 2.5 MLS/HR Phenylephrine HCl 250 ml @ 30 mls/hr Q8H20M IV 02/19/25 08:45 02/19/25 14:44 30 MLS/HR Fat Emulsion Intravenous 200 ml/Sodium Chloride 40 meq/ Potassium Acetate 10 meq/Magnesium Sulfate 4 meq/ Multivitamins 10 ml/Insulin Human Regular 32 units/ Amino Acids/ Dextrose 1,226.32 ml @ 51 mls/hr Q24H3M IV 02/19/25 22:00 02/20/25 21:59 Vancomycin HCl 0 ml @ 0 mls/hr UD IV 02/19/25 16:15 Diagnostic Test (Pha) 1 strip ACHS 02/19/25 22:00 Insulin Human Regular HS SC 02/19/25 22:00 Insulin Human Regular AC SC 02/20/25 07:00 Dextrose 50 ml UD PRN IV 02/19/25 18:30 laboratory and microbiology Laboratory Tests 02/19/25 17:25 02/19/25 03:30 Test 02/19/25 17:25 Range/Units Serum Glucose 401 #*H 74-106 mg/dL Assessment/Plan Impression Acute hypoxemic respiratory failure Perforated bowel Septic shock ESRD on HD Patient seen and examined in ICU Events On mechanical ventilation S/p intubation PEEP 5, FiO2 80% Labs and imaging reviewed ABG reviewed pH 7.24, pCO2 35, pO2 107 Ventilator changes made Management Vent support Titrate to maintain sats 90% or above Sedation for vent synchrony Continue antibiotics F/u cultures Bronchodilators Monitor renal function HD as per nephrology Management deferred Monitor electrolytes Supplement as needed Pressors as needed for hemodynamic support To maintain a mean arterial pressure of 65 mmHg DVT prophylaxis Critical care time 35 minutes Dietary Evaluation Review Comments: 1) Advance to [facility] 60gm + Renal specific 60gm as medically feasible 2) Refer to CDE on DC 3) Continue current plan of care Expected Outcomes/Goals: To meet 75% estimated needs fu 2-3 days Plan discussed with: Other (Rn) KOBY WALLACE MD February 19, 2025 22:05
[2025-02-19] MEDS: SODIUM BICARB 8.4% 50Meq/50ml SYR INJ ONE (22:16)
[2025-02-19] MEDS: POTASSIUM ACETATE IV NR (22:40)
[2025-02-19] MEDS: [UNRECOGNIZED DRUG - OTHER] IV NR (22:40)
[2025-02-19] MEDS: FAT EMULSION IV NR (22:40)
[2025-02-19] MEDS: SODIUM CHLORIDE IV NR (22:40)
[2025-02-19] MEDS: InsuLIN REG 1unit/0.01ml Soln (100units/ml) SC SCH (22:44)
[2025-02-20] VITALS (105 sets, daily range): BP systolic 67–224; BP diastolic 33–119; PULSE 70–133; RESP 18–36; TEMP 97.9–98.8; O2SAT 94–100
[2025-02-20] MEDS: CALCIUM GLUC 1,000mg/50ml-NS 50 ML IV ONE (01:05)
[2025-02-20] MEDS: SODIUM BICARB 8.4% 50Meq/50ml SYR Vial IV ONE (01:06)
[2025-02-20] MEDS: SODIUM BICARB 8.4% 50Meq/50ml SYR INJ ONE (01:06)
[2025-02-20 04:06] LABS: Anion Gap 15 (5-15); Chloride 103 mmol/L (98-107); Magnesium 1.7 mg/dL (1.6-2.6); Potassium 4.5 mmol/L (3.5-5.1); Sodium 137 mmol/L (136-145)
[2025-02-20 04:18] LABS: Hematocrit 35.1 % (41.0-53.0); Hemoglobin 11.6 g/dL (13.5-17.5); Mean Corpuscular Hemoglobin 31.8 pg (28.0-32.0); Mean Corpuscular Hgb Conc. 33.1 g/dL (32.0-36.0); Mean Corpuscular Volume 95.8 fL (80.0-100.0); Platelet Count (auto) 131 10^3/uL (140-450); Red Blood Cells 3.66 10^6/uL (4.5-5.90); Red Cell Distribution Width 23.8 % (11.8-14.3); White Blood Cell 10.2 10^3/uL (4.4-10.8)
[2025-02-20 04:22] LABS: Basophils % (manual) 0 (0.0-2.0); Blast Cells 0; Metamyelocytes % 0; Myelocytes % 0; Promyelocytes % 0; Reactive Lymphocytes 0
[2025-02-20 04:43] LABS: Alanine Aminotransferase 95 U/L (7-40); Alkaline Phosphatase 120 U/L (46-116); Aspartate Aminotransferase 385 U/L (13-40); Bilirubin, Total 12.4 mg/dL (0.2-1.0); Calcium 7.4 mg/dL (8.7-10.4); Carbon Dioxide 19 mmol/L (20-31); Phosphorus 5.1 mg/dL (2.4-5.1)
[2025-02-20 04:44] LABS: Glucose 436 mg/dL (74-106)
[2025-02-20 04:45] LABS: Blood Urea Nitrogen 119 mg/dL (9-23)
[2025-02-20 04:47] LABS: Total Protein 3.7 g/dL (5.7-8.2)
[2025-02-20 05:57] LABS: Band Neutrophils % (manual) 5; Eosinophils % (manual) 1 (0-7); Lymphocytes % (manual) 5 (10.0-50.0); Monocytes % (manual) 1 (0-12)
[2025-02-20 05:58] LABS: Anisocytosis Slight; Platelet Estimate Decreased
--- NOTE | 2025-02-20 05:59 | DVH ---
EXAM: XR Chest, 1 View CLINICAL INDICATION: Mechanical ventilation TECHNIQUE: Frontal view of the chest. COMPARISON: XY CHEST PORTABLE on DOS: 02/19/25, XY CHEST PORTABLE on DOS: 02/18/25, XY CHEST XRAY 1 V IEW on DOS: 02/16/25, XY CHEST XRAY 1 VIEW on DOS: 02/15/25, XY CHEST XRAY 1 VIEW on DOS: 02/15/25 FINDINGS: LUNGS AND PLEURAL SPACES: Left basilar atelectasis or pneumonia. No pneumothorax. HEART: Unremarkable. No cardiomegaly. MEDIASTINUM: Unremarkable. Normal mediastinal contour. BONES/JOINTS: Unremarkable. No acute fracture. TUBES, LINES AND DEVICES: Right internal jugular central venous catheter tip in the superior vena c wong. The endotracheal tube (ETT) is in satisfactory position. Enteric tube tip in the stomach. Lef t internal jugular central venous catheter tip in the superior vena cava. OTHER FINDINGS: . . . IMPRESSION: Left basilar atelectasis or pneumonia.
[2025-02-20] MEDS: InsuLIN REG 1unit/0.01ml Soln (100units/ml) SC SCH (06:19)
[2025-02-20 08:00] LABS: Base Excess -6.5 mmol/L (-2.0-3.0)
--- NOTE | 2025-02-20 08:59 | ECG ---
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
[2025-02-20] MEDS: INSULIN LANTUS (GLARGINE) 1 /0.01ml (100units/ml) SC ONE (09:45)
[2025-02-20] MEDS: ALBUMIN 25% 100 ML IV ONE (10:34)
[2025-02-20] MEDS: ALBUMIN 25% 100 ML IV SCH (11:00)
[2025-02-20] MEDS: DOPamine 1600MCG/ML D5W 250 ML IV ONE (11:04)
[2025-02-20] MEDS ORDERED: DOPamine 1600MCG/ML D5W 250 ML IV SCH (11:15)
--- NOTE | 2025-02-20 11:33 | DVHPN2 ---
Progress Note Date Seen: February 20, 2025 Resident Creating Document: TYRELL TAVAREZ RESIDENT Has the PT tested + for MRSA If YES, has PT been informed?: No Medical Necessity Reason Pt with a Central, PICC or Fol: Yes The following are medically ne: Central Line, Lopez Catheter Subjective Review of Systems This is a 69-year-old male patient with past medical history of recurrent admissions due to hepatic encephalopathy secondary to alcoholic liver cirrhosis, hyperammonemia, history of 2 [place] 30 years back, CKD 3B, diabetes mellitus type 2 for 15 years, heart failure with preserved ejection fraction at 60%, colonoscopy status post polypectomy in 2018, paroxysmal atrial fibrillation, splenomegaly, Patrizia UTI in 02/2024, pneumonia status post intubation in 2018, hypertension and hyperlipidemia who presented to the ER with the chief complaint of dizziness and abdominal pain for the past 4x days. Patient reports that on 02/02 he was helping his son, and was working outside in the sun when he experienced dizziness but did not experience any fall, syncope, confusion. Patient since worsening abdominal distention, and diffuse lower abdominal pain. Reports last bowel movement was on 02/03, says that his abdomen was bloated and therefore he induced vomiting himself denies nausea or vomiting. Denies disorientation and confusion during the past week. Reports compliance to lactulose 30 daily. Patient is A&O x4, alert and oriented to name, place, time and situation. Last drink was 1996. On arrival to the ER, patient was vitally stable, WBC increased from 16-19, platelets 123 which is chronic. BMP showed sodium 146, now 132, potassium elevated at 5.8, was 4.5 on 02/04. BUN/creatinine went 26/1.7 GFR 42 on 02/04/2025, now 60/4.3, GFR 14. Patient had been anion gap metabolic acidosis. Lactic acid elevated at 2.3. Ammonia level 180, was 78 12/28. Patient was recently hospitalized in this facility on 07/13/2024 and was diagnosed with hepatic encephalopathy and diastolic heart failure exacerbation. He was A&O x4. Ammonia was 93. Past medical history: recurrent admissions due to hepatic encephalopathy secondary to alcoholic liver cirrhosis, hyperammonemia, history of 2 [place] 30 years back, CKD 3B, diabetes mellitus type 2, heart failure with preserved ejection fraction at 60%, colonoscopy status post polypectomy in 2019, paroxysmal atrial fibrillation, splenomegaly, UTI, pneumonia status post intubation in 2018, hypertension and hyperlipidemia Past Surgical History: pneumonia status post intubation in 2018 Family History: None Social history: Lives with family, last drink 1986, denies smoking or illicit drug use PCP Dr. Turner Home medications: Lactulose t.i.d., spironolactone 100 mg, Coreg 6.2 5 mg b.i.d. , glipizide, atorvastatin patient recently stopped taking Sildenafil 100 mg, lisinopril 20 mg, Lasix 40 mg, amlodipine 10 mg, Finerenone in 20 mg, fexofenadine 02/06-Patient seen and examined at the bedside. No acute distress. Abdomen has shifting dullness, distended, hyperactive bowel sounds. 02/07-patient seen and examined at the bedside. Lopez catheter placement is still pending. No I&Os noted. Strict I&Os and Lopez catheter placement ordered again. Patient had a bowel movement earlier today. Bicarbonate increased from 13-17. 1 L D5 with 3 ampules of bicarb ordered. BUN/ creatinine increased to 84/4.9 02/08 - patient seen and examined at the bedside. Had 2 bowel movements. Urine output 1350cc per day, WBC trending down to 14 serum bicarb increased to 22. Overnight, Patient did not get D5 with bicarb 1 L. 02/09 - patient seen and examined at the bedside. Reports feeling better. Had a bowel movement. No suprapubic tenderness. 02/16 - seen and examined in the ICU. Urine output 200 cc. Placed left IJ Darrick catheter, hemodialysis pending. 02/19 - patient seen and examined at bedside. 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 Currently intubated and mechanically ventilated. FiO2 60%, peep 10. Follow up with urine electrolytes. 02/20 - patient seen and examined at bedside. u/o 600ml. Started Dopamine drip 2 mcg/hr and octreotide 300mg tid SQ for renal perfusion. Other Systems: Patient seen and examined by myself today on rounds with the medicine resident, I agree with the assessment and plan Objective vital signs Vital Sign Date Time Temp Pulse Resp B/P (MAP) Pulse Ox O2 Delivery O2 Flow Rate FiO2 02/20/25 09:52 113/60 02/20/25 09:35 74 26 95 55 02/20/25 06:00 Mechanical Ventilator+ 02/20/25 04:00 98.4 98.4 02/18/25 20:00 2 Total Intake and Output 02/19/25 02/19/25 02/20/25 15:00 23:00 07:00 Intake Total 1674.78 ml 2031.28 ml 2033.12 ml Output Total 900 ml 850 ml Balance 1674.78 ml 1131.28 ml 1183.12 ml medications Current Medications Medications Dose Ordered Sig/Tanya Route Start Time Stop Time Status Last Admin Dose Admin Metronidazole 100 ml @ 100 mls/hr Q8HR IV 02/06/25 06:00 02/20/25 05:41 100 MLS/HR Acetaminophen 650 mg Q6HP PRN PO 02/05/25 22:15 02/12/25 03:43 650 MG Amino Acids 0 ml @ 0 mls/hr PER PHARMACY IV 02/15/25 14:00 Norepinephrine Bitartrate 250 ml @ 3.75 mls/hr Q24H IV 02/18/25 09:00 02/20/25 09:52 52.5 MLS/HR Pantoprazole Sodium 40 mg BID IV 02/18/25 09:45 02/20/25 09:15 40 MG Meropenem 50 ml @ 17 mls/hr Q12HR IV 02/18/25 22:00 02/20/25 09:15 17 MLS/HR Vasopressin 20 units/Sodium Chloride 100 ml @ 9 mls/hr Q11H7M IV 02/19/25 01:15 02/19/25 23:01 9 MLS/HR Midazolam HCl 50 ml @ 1 mls/hr Q24H IV 02/19/25 08:30 02/20/25 03:23 5 MLS/HR Fentanyl Citrate 250 ml @ 2.5 mls/hr Q24H IV 02/19/25 08:30 02/20/25 08:43 7.5 MLS/HR Phenylephrine HCl 250 ml @ 30 mls/hr Q8H20M IV 02/19/25 08:45 02/19/25 14:44 30 MLS/HR Fat Emulsion Intravenous 200 ml/Sodium Chloride 40 meq/ Potassium Acetate 10 meq/Magnesium Sulfate 4 meq/ Multivitamins 10 ml/Insulin Human Regular 32 units/ Amino Acids/ Dextrose 1,226.32 ml @ 51 mls/hr Q24H3M IV 02/19/25 22:00 02/20/25 21:59 02/19/25 22:40 51 MLS/HR Vancomycin HCl 0 ml @ 0 mls/hr UD IV 02/19/25 16:15 Diagnostic Test (Pha) 1 strip ACHS 02/19/25 22:00 02/20/25 06:17 1 STRIP Insulin Human Regular HS SC 02/19/25 22:00 02/19/25 22:44 10 UNITS Insulin Human Regular AC SC 02/20/25 07:00 02/20/25 06:19 15 UNITS Dextrose 50 ml UD PRN IV 02/19/25 18:30 Insulin Glargine 20 units QAM SC 02/21/25 07:00 Albumin Human 100 ml @ 100 mls/hr Q1HR IV 02/20/25 11:00 02/20/25 12:59 Dopamine HCl/ Dextrose 250 ml @ 19.631 mls/ hr [id number] IV 02/20/25 11:30 Examination Patient lying in bed, intubated and mechanically ventilated. Left IJ Darrick cath placed 02/16, right IJ CVC placed 02/15 General: Well-built, afebrile, scleral icterus, mucosae are moist Cardiovascular: Regular S1 and S2. No murmurs, gallops or rubs. No JVD elevation. 1+ bilateral pedal edema Respiratory: Bilateral decreased aeration on FiO2 60%, peep 10, saturating 97 % Abdomen: Soft, hypoactive bowel sounds, no rebound tenderness, no organomegaly, no masses. Sutures dry clean and intact. Drain attached, with a serosanguineous discharge Genitourinary: Lopez draining clear urine. MSK/skin: Skin is dry and warm laboratory and microbiology Laboratory Tests 02/20/25 03:18 Test 02/20/25 03:18 Range/Units Serum Glucose 436 *H 74-106 mg/dL Microbiology Date/Time Source Procedure Growth Status 02/19/25 10:28 Voided Urine Urine Culture - Preliminary Resulted 02/19/25 01:30 Sputum Gram Stain - Final Resulted 02/19/25 01:30 Sputum Respiratory Culture Pending Resulted 02/18/25 22:30 Abdomen Gram Stain - Final Resulted 02/18/25 22:30 Abdomen Anaerobic Culture Pending Resulted 02/18/25 22:30 Abdomen Aerobic Culture Pending Resulted 02/05/25 20:41 Blood Blood Culture - Final NO GROWTH AFTER 5 DAYS OF INCUBATION. Complete Labs and/or images reviewed: Labs reviewed by me, Image(s) reviewed by me Problem List/Assessment/Plan Problem List/Assessment/Plan Acute kidney injury, likely hemodynamic mediated etiology plus or minus ATN needing HD requiring hemodialysis Uremic encephalopathy Rule out urinary obstruction Acute hypoxic respiratory failure s/p mechanical ventilation 02/18 Sepsis due to SBO versus ileus status post exploratory laparotomy and small- bowel resection 02/18 Septic shock requiring pressor support ? Mesenteric thrombosis Decompensated liver cirrhosis Macrocytic Anemia History of hepatic encephalopathy Hyperkalemia Heart failure with preserved ejection fraction Diabetes mellitus type 2 History of paroxysmal AFib History of pneumonia status and intubation History of [place] Hypertension Chronic thrombocytopenia Morbid obesity FENA 0.2 02/19/25 Small bowel series with Gastrografin shows Contrast is identified within the colon by 4 hours. This represents a delayed small bowel transit time without definite obstruction. Clinical correlation advised. Plan: BUNuptrending, creatinine stable. Started Dopamine drip 2 mcg/hr and octreotide 100mg tid SQ for renal perfusion. Patient underwent hemodialysis today. 02/16, 02/17, 02/20 Fena 0.2 DC half NS with sodium bicarb Patient is status post expiratory laparotomy, underwent 02/18 Continue Lopez placement until Urology clears. Consider Urology evaluation. Patient has received a total of 8 bags of D5 NS and 2 bags of D5W Bladder scan 02/07 showed 150 cc 02/07- patient did not receive 1 L D5 with 3 ampules of bicarb ordered 02/06- 1 L D5 with 3 amps bicarb and 3 bags of albumin administered IR Consulted for Paracentesis, no ascites, preliminary blood culture negative Continue IV antibiotics NPO TPN Plan discussed with patient's son at bedside in which all questions have been answered Case discussed with Dr. Aguilera Plan discussed with: Patient Dietary Evaluation Review Comments: 1) Advance to [facility] 60gm + Renal specific 60gm as medically feasible 2) Refer to CDE on DC 3) Continue current plan of care Expected Outcomes/Goals: To meet 75% estimated needs fu 2-3 days TYRELL TAVAREZ February 20, 2025 11:33 JOAQUIM AGUILERA MD February 20, 2025 18:39
[2025-02-20] MEDS: DOPamine 1600MCG/ML D5W 250 ML IV SCH ×2 (11:38→12:00)
[2025-02-20] MEDS: OCTREOTIDE ACETATE 100 MCG/ML VL SUBCUT SCH (13:29)
--- NOTE | 2025-02-20 14:15 | DVHPN2 ---
Progress Note Date Seen: February 20, 2025 Has the PT tested + for MRSA If YES, has PT been informed?: No Medical Necessity Reason Pt with a Central, PICC or Fol: Yes The following are medically ne: Central Line, Lopez Catheter Objective vital signs Vital Sign Date Time Temp Pulse Resp B/P (MAP) Pulse Ox O2 Delivery O2 Flow Rate FiO2 02/20/25 14:07 101 24 80/33 (49) 96 50 02/20/25 12:00 97.9 97.9 02/20/25 12:00 Mechanical Ventilator+ 02/18/25 20:00 2 Total Intake and Output 02/19/25 02/19/25 02/20/25 15:00 23:00 07:00 Intake Total 1674.78 ml 2031.28 ml 2033.12 ml Output Total 900 ml 850 ml Balance 1674.78 ml 1131.28 ml 1183.12 ml medications Current Medications Medications Dose Ordered Sig/Tanya Route Start Time Stop Time Status Last Admin Dose Admin Metronidazole 100 ml @ 100 mls/hr Q8HR IV 02/06/25 06:00 02/20/25 13:19 100 MLS/HR Acetaminophen 650 mg Q6HP PRN PO 02/05/25 22:15 02/12/25 03:43 650 MG Amino Acids 0 ml @ 0 mls/hr PER PHARMACY IV 02/15/25 14:00 Norepinephrine Bitartrate 250 ml @ 3.75 mls/hr Q24H IV 02/18/25 09:00 02/20/25 09:52 52.5 MLS/HR Pantoprazole Sodium 40 mg BID IV 02/18/25 09:45 02/20/25 09:15 40 MG Meropenem 50 ml @ 17 mls/hr Q12HR IV 02/18/25 22:00 02/20/25 09:15 17 MLS/HR Vasopressin 20 units/Sodium Chloride 100 ml @ 9 mls/hr Q11H7M IV 02/19/25 01:15 02/20/25 10:36 9 MLS/HR Midazolam HCl 50 ml @ 1 mls/hr Q24H IV 02/19/25 08:30 02/20/25 13:28 5 MLS/HR Fentanyl Citrate 250 ml @ 2.5 mls/hr Q24H IV 02/19/25 08:30 02/20/25 08:43 7.5 MLS/HR Phenylephrine HCl 250 ml @ 30 mls/hr Q8H20M IV 02/19/25 08:45 02/20/25 09:45 30 MLS/HR Fat Emulsion Intravenous 200 ml/Sodium Chloride 40 meq/ Potassium Acetate 10 meq/Magnesium Sulfate 4 meq/ Multivitamins 10 ml/Insulin Human Regular 32 units/ Amino Acids/ Dextrose 1,226.32 ml @ 51 mls/hr Q24H3M IV 02/19/25 22:00 02/20/25 21:59 02/19/25 22:40 51 MLS/HR Vancomycin HCl 0 ml @ 0 mls/hr UD IV 02/19/25 16:15 Diagnostic Test (Pha) 1 strip ACHS 02/19/25 22:00 02/20/25 11:30 1 STRIP Insulin Human Regular HS SC 02/19/25 22:00 02/19/25 22:44 10 UNITS Insulin Human Regular AC SC 02/20/25 07:00 02/20/25 11:30 3 UNITS Dextrose 50 ml UD PRN IV 02/19/25 18:30 Insulin Glargine 20 units QAM SC 02/21/25 07:00 Octreotide Acetate 100 mcg TID SUBCUT 02/20/25 14:00 02/20/25 13:29 100 MCG Dopamine HCl/ Dextrose 250 ml @ 7.853 mls/ hr Q24H IV 02/20/25 12:00 02/20/25 12:00 7.853 MLS/HR Fat Emulsion Intravenous 200 ml/Sodium Acetate 40 meq/Potassium Acetate 10 meq/ Calcium Gluconate 2.3 meq/Magnesium Sulfate 8 meq/ Multivitamins 10 ml/Insulin Human Regular 30 units/ Amino Acids/ Dextrose 1,142.2462 ml @ 47 mls/hr [id number] IV 02/20/25 22:00 02/21/25 21:59 laboratory and microbiology Laboratory Tests 02/20/25 03:18 Test 02/20/25 03:18 Range/Units Serum Glucose 436 *H 74-106 mg/dL Microbiology Date/Time Source Procedure Growth Status 02/19/25 10:28 Voided Urine Urine Culture - Preliminary Resulted 02/19/25 01:30 Sputum Gram Stain - Final Resulted 02/19/25 01:30 Sputum Respiratory Culture Pending Resulted 02/18/25 22:30 Abdomen Gram Stain - Final Resulted 02/18/25 22:30 Abdomen Anaerobic Culture Pending Resulted 02/18/25 22:30 Abdomen Aerobic Culture - Preliminary Resulted 02/05/25 20:41 Blood Blood Culture - Final NO GROWTH AFTER 5 DAYS OF INCUBATION. Complete Problem List/Assessment/Plan Problem List/Assessment/Plan INTUBATED HEMODYNAMICALLY LABILE ON VASOPRESSOR SUPPORT DIALYSIS DONE ABD SOFT DISTENDED FROM ASCITES DRAIN 300 CC SEROSANGUINEOUS WBC WNL KEEP NPO NG NURSE AND FAMILY AT BEDSIDE CONTINUE CLOSE OBSERVATION CONDITION CRITICAL Plan discussed with: Other Dietary Evaluation Review Comments: 1) [facility] + Renal specific 60gm as medically feasible 2) Refer to CDE on DC 3) Continue current plan of care Expected Outcomes/Goals: To meet 75% estimated needs fu 2-3 days MARIANA PENA MD February 20, 2025 14:15
--- NOTE | 2025-02-20 16:38 | DVHPN2 ---
Progress Note - Dictate Date Seen: February 20, 2025 Has the PT tested + for MRSA If YES, has PT been informed?: No Medical Necessity Reason Pt with a Central, PICC or Fol: Yes The following are medically ne: Central Line, Lopez Catheter Subjective 69-year-old male postop day 2. S/P laparotomy with resection of small bowel for focal twisting and mesenteric ischemia and recurrent bowel obstruction and distention Pt has 69 y o male wth history of hepatic encephalopathy secondary to alcoholic liver cirrhosis, hyperammonemia, history of 2 [place] 30 years back, CKD 3B, diabetes mellitus type 2, heart failure with preserved ejection fraction at 60%, Patient is currently intubated sedated ; he became hypotensive during dialysis requiring albumin infusions and pressor support Currently after dialysis his blood pressure has been more stable and he is being tapered off the pressors No active GI bleeding is reported today vital signs Vital Sign Date Time Temp Pulse Resp B/P (MAP) Pulse Ox O2 Delivery O2 Flow Rate FiO2 02/20/25 16:15 92 24 106/70 (82) 97 50 02/20/25 12:00 97.9 97.9 02/20/25 12:00 Mechanical Ventilator+ 02/18/25 20:00 2 Total Intake and Output 02/19/25 02/19/25 02/20/25 15:00 23:00 07:00 Intake Total 1674.78 ml 2031.28 ml 2204.78 ml Output Total 900 ml 850 ml Balance 1674.78 ml 1131.28 ml 1354.78 ml medications Current Medications Medications Dose Ordered Sig/Tanya Route Start Time Stop Time Status Last Admin Dose Admin Metronidazole 100 ml @ 100 mls/hr Q8HR IV 02/06/25 06:00 02/20/25 13:19 100 MLS/HR Acetaminophen 650 mg Q6HP PRN PO 02/05/25 22:15 02/12/25 03:43 650 MG Amino Acids 0 ml @ 0 mls/hr PER PHARMACY IV 02/15/25 14:00 Norepinephrine Bitartrate 250 ml @ 3.75 mls/hr Q24H IV 02/18/25 09:00 02/20/25 09:52 52.5 MLS/HR Pantoprazole Sodium 40 mg BID IV 02/18/25 09:45 02/20/25 09:15 40 MG Meropenem 50 ml @ 17 mls/hr Q12HR IV 02/18/25 22:00 02/20/25 09:15 17 MLS/HR Vasopressin 20 units/Sodium Chloride 100 ml @ 9 mls/hr Q11H7M IV 02/19/25 01:15 02/20/25 10:36 9 MLS/HR Midazolam HCl 50 ml @ 1 mls/hr Q24H IV 02/19/25 08:30 02/20/25 13:28 5 MLS/HR Fentanyl Citrate 250 ml @ 2.5 mls/hr Q24H IV 02/19/25 08:30 02/20/25 08:43 7.5 MLS/HR Phenylephrine HCl 250 ml @ 30 mls/hr Q8H20M IV 02/19/25 08:45 02/20/25 09:45 48.75 MLS/HR Fat Emulsion Intravenous 200 ml/Sodium Chloride 40 meq/ Potassium Acetate 10 meq/Magnesium Sulfate 4 meq/ Multivitamins 10 ml/Insulin Human Regular 32 units/ Amino Acids/ Dextrose 1,226.32 ml @ 51 mls/hr Q24H3M IV 02/19/25 22:00 02/20/25 21:59 02/19/25 22:40 51 MLS/HR Vancomycin HCl 0 ml @ 0 mls/hr UD IV 02/19/25 16:15 Diagnostic Test (Pha) 1 strip ACHS 02/19/25 22:00 02/20/25 11:30 1 STRIP Insulin Human Regular HS SC 02/19/25 22:00 02/19/25 22:44 10 UNITS Insulin Human Regular AC SC 02/20/25 07:00 02/20/25 11:30 3 UNITS Dextrose 50 ml UD PRN IV 02/19/25 18:30 Insulin Glargine 20 units QAM SC 02/21/25 07:00 Octreotide Acetate 100 mcg TID SUBCUT 02/20/25 14:00 02/20/25 13:29 100 MCG Dopamine HCl/ Dextrose 250 ml @ 7.853 mls/ hr Q24H IV 02/20/25 12:00 02/20/25 12:00 7.853 MLS/HR Fat Emulsion Intravenous 200 ml/Sodium Acetate 40 meq/Potassium Acetate 10 meq/ Calcium Gluconate 2.3 meq/Magnesium Sulfate 8 meq/ Multivitamins 10 ml/Insulin Human Regular 30 units/ Amino Acids/ Dextrose 1,142.2462 ml @ 47 mls/hr [id number] IV 02/20/25 22:00 02/21/25 21:59 objective General: Well-built, obese, slight scleral icterus, mucosae are moist intubated sedated Cardiovascular: Regular S1 and S2 rrr trace bilateral pedal edema Respiratory: Normal B/L air entry on room air. Clear lung sounds on auscultation Abdomen: Soft, dressing is dry, absent bowel sounds, no rebound tenderness, no organomegaly, no masses; well-healed supraumbilical midline scar Neurological: No motor, no sensitive deficits, normal speech. Pupils are isocoric and reactive. Psych/Mental Status: A/Ox3 laboratory and microbiology Laboratory Tests 02/20/25 03:18 Test 02/20/25 03:18 Range/Units Serum Glucose 436 *H 74-106 mg/dL Problems(with codes): (1) Altered level of consciousness (2) Acute renal insufficiency (3) Ileus (4) Cirrhosis of liver (5) GERD (gastroesophageal reflux disease) (6) UTI (urinary tract infection) (7) Hepatic encephalopathy Prognosis Plan Continue to monitor labs Continue IV TPN Await final pathology results IV antibiotics Supportive care Taper off pressors when possible Dietary Evaluation Review Comments: 1) Advance to [facility] 60gm + Renal specific 60gm as medically feasible 2) Refer to CDE on DC 3) Continue current plan of care Expected Outcomes/Goals: To meet 75% estimated needs fu 2-3 days Plan discussed with: Other (ICU Nurse) ZENAIDA PENA MD February 20, 2025 16:38
[2025-02-20] MEDS: VANCOMYCIN 750mg/150ml 150 ML IV ONE (18:00)
--- NOTE | 2025-02-20 18:59 | DVHPNRES ---
Progress Note Date Seen: February 20, 2025 Resident Creating Document: FEDERICO CLARKE RESIDENT Has the PT tested + for MRSA If YES, has PT been informed?: No Medical Necessity Reason Pt with a Central, PICC or Fol: Yes The following are medically ne: Central Line, Lopez Catheter Subjective Review of Systems This is a 69-year-old male patient with past medical history of recurrent admissions due to hepatic encephalopathy secondary to alcoholic liver cirrhosis, hyperammonemia, history of 2 HI 30 years back, CKD 3B, diabetes mellitus type 2 for 15 years, heart failure with preserved ejection fraction at 60%, colonoscopy status post polypectomy in 2019, paroxysmal atrial fibrillation, splenomegaly, Patrizia UTI in 02/2024, pneumonia status post intubation in 2018, hypertension and hyperlipidemia who presented to the ER with the chief complaint of dizziness and abdominal pain for the past 4x days. Patient reports that on 02/02 he was helping his son, and was working outside in the sun when he experienced dizziness but did not experience any fall, syncope, confusion. Patient since worsening abdominal distention, and diffuse lower abdominal pain. Reports last bowel movement was on 02/03, says that his abdomen was bloated and therefore he induced vomiting himself denies nausea or vomiting. Denies disorientation and confusion during the past week. Reports compliance to lactulose 30 daily. Patient seen and examined at bedside. 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 Currently intubated and mechanically ventilated. FiO2 55%, peep 8, Tidal volume 500 ml and RR 24. S/P Exploratory laparotomy with bowel resection and anastomosis day 2. Objective vital signs Vital Sign Date Time Temp Pulse Resp B/P (MAP) Pulse Ox O2 Delivery O2 Flow Rate FiO2 02/20/25 18:23 104 24 126/69 (88) 98 50 02/20/25 16:00 Mechanical Ventilator+ 02/20/25 16:00 98.7 98.7 02/18/25 20:00 2 Total Intake and Output 02/19/25 02/19/25 02/20/25 15:00 23:00 07:00 Intake Total 1674.78 ml 2031.28 ml 2204.78 ml Output Total 900 ml 850 ml Balance 1674.78 ml 1131.28 ml 1354.78 ml medications Current Medications Medications Dose Ordered Sig/Tanya Route Start Time Stop Time Status Last Admin Dose Admin Metronidazole 100 ml @ 100 mls/hr Q8HR IV 02/06/25 06:00 02/20/25 13:19 100 MLS/HR Acetaminophen 650 mg Q6HP PRN PO 02/05/25 22:15 02/12/25 03:43 650 MG Amino Acids 0 ml @ 0 mls/hr PER PHARMACY IV 02/15/25 14:00 Pantoprazole Sodium 40 mg BID IV 02/18/25 09:45 02/20/25 09:15 40 MG Meropenem 50 ml @ 17 mls/hr Q12HR IV 02/18/25 22:00 02/20/25 09:15 17 MLS/HR Vasopressin 20 units/Sodium Chloride 100 ml @ 9 mls/hr Q11H7M IV 02/19/25 01:15 02/20/25 10:36 9 MLS/HR Midazolam HCl 50 ml @ 1 mls/hr Q24H IV 02/19/25 08:30 02/20/25 13:28 5 MLS/HR Fentanyl Citrate 250 ml @ 2.5 mls/hr Q24H IV 02/19/25 08:30 02/20/25 18:52 7.5 MLS/HR Fat Emulsion Intravenous 200 ml/Sodium Chloride 40 meq/ Potassium Acetate 10 meq/Magnesium Sulfate 4 meq/ Multivitamins 10 ml/Insulin Human Regular 32 units/ Amino Acids/ Dextrose 1,226.32 ml @ 51 mls/hr Q24H3M IV 02/19/25 22:00 02/20/25 21:59 02/19/25 22:40 51 MLS/HR Vancomycin HCl 0 ml @ 0 mls/hr UD IV 02/19/25 16:15 Diagnostic Test (Pha) 1 strip ACHS 02/19/25 22:00 02/20/25 17:28 1 STRIP Insulin Human Regular HS SC 02/19/25 22:00 02/19/25 22:44 10 UNITS Insulin Human Regular AC SC 02/20/25 07:00 02/20/25 17:00 15 UNITS Dextrose 50 ml UD PRN IV 02/19/25 18:30 Insulin Glargine 20 units QAM SC 02/21/25 07:00 Octreotide Acetate 100 mcg TID SUBCUT 02/20/25 14:00 02/20/25 13:29 100 MCG Dopamine HCl/ Dextrose 250 ml @ 7.853 mls/ hr Q24H IV 02/20/25 12:00 02/20/25 12:00 7.853 MLS/HR Fat Emulsion Intravenous 200 ml/Sodium Acetate 40 meq/Potassium Acetate 10 meq/ Calcium Gluconate 2.3 meq/Magnesium Sulfate 8 meq/ Multivitamins 10 ml/Insulin Human Regular 30 units/ Amino Acids/ Dextrose 1,142.2462 ml @ 47 mls/hr [id number] IV 02/20/25 22:00 02/21/25 21:59 Phenylephrine HCl 80 mg/Sodium Chloride 250 ml @ 7.5 mls/hr Q24H IV 02/20/25 18:00 Norepinephrine Bitartrate 32 mg/ Sodium Chloride 250 ml @ 0.938 mls/ hr Q24H IV 02/20/25 18:00 Examination Physical exam: General: RASS -3, afebrile, mucosae are moist Cardiovascular: Normal S1 and S2. No murmurs, gallops or rubs Respiratory: Mechanically assisted ventilation, equal bilateral airway entree. Bilateral crackles Abdomen: Soft, hypoactive bowel sounds, no organomegaly, no masses. Sutures dry clean and intact. Drain attached, with a serosanguineous discharge MSK/skin: Mobilization of limbs cannot be evaluated. Skin is dry and warm. Bilateral edema +. Neurological: Orientation cannot be assessed. No apparent motor no sensitive deficits. Pupils are isocoric and reactive laboratory and microbiology Laboratory Tests 02/20/25 03:18 Test 02/20/25 03:18 Range/Units Serum Glucose 436 *H 74-106 mg/dL Microbiology Date/Time Source Procedure Growth Status 02/19/25 17:25 Blood Blood Culture - Preliminary NO GROWTH AFTER 24 HOURS OF INCUBATION. Resulted 02/19/25 10:28 Voided Urine Urine Culture - Preliminary Resulted 02/19/25 01:30 Sputum Gram Stain - Final Resulted 02/19/25 01:30 Sputum Respiratory Culture Pending Resulted 02/18/25 22:30 Abdomen Gram Stain - Final Resulted 02/18/25 22:30 Abdomen Anaerobic Culture Pending Resulted 02/18/25 22:30 Abdomen Aerobic Culture - Preliminary Resulted Labs and/or images reviewed: Labs reviewed by me, Image(s) reviewed by me Problem List/Assessment/Plan Problem List/Assessment/Plan Assessment and plan: NEURO: Acute metabolic encephalopathy Hyperammonemia On mechanical ventilation RASS score: -3 CARDIOVASCULAR: Possible acute on chronic diastolic heart failure Paroxysmal atrial fibrillation with secondary hypercoagulable state, on amiodarone drip - Echo on 02/19 revealed lvef 65% .moderate LVH ,septal hypertrophy, normal RV function, RV enlarged mild left atrium enlarged PULMONARY: Acute hypoxic respiratory failure, status post mechanical ventilation GASTROINTESTINAL: Possible Ileus/SBO SBO likely due to adhesion from previous surgery appendectomy 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 The distal small bowel loops are relatively nondilated. There is mesenteric edema and stranding as well as small bowel wall thickening. These findings are suggestive of at least a partial small bowel obstruction. Cirrhotic Morphology liver with sequela portal hypertension including extensive perisplenic varices. Small amount of ascites fluid which may be secondary to the underlying cirrhosis and/or small bowel obstruction. - Gastrografin small bowel series on 02/14/25 showed Contrast only noted in the stomach none in the small bowel. Persistent gaseous distention of the small bowel. - S/P exploratory laparotomy with small-bowel resection and anastomosis, day 2 GENITOURINARY: Acute kidney injury, likely hemodynamic mediated etiology and possible ATN requiring hemodialysis Uremic encephalopathy Rule out urinary obstruction Anion gap metabolic acidosis likely due to lactic acidosis and kidney impairment - Patient underwent HD today - Discontinued dopamine drip because of increased heart rate. ENDOCRINE: Type 2 diabetes mellitus, hemoglobin A1c 7.2 on 01/30 - Moderate sliding scale of insulin - Lantus 20 unit at QA METABOLIC: Morbid obesity, BMI 38 kg / m2 Severe protein calorie malnutrition, albumin 2 HEME: Thrombocytopenia and coagulopathy likely due to cirrhosis INFECTIOUS DISEASE: Sepsis with septic shock secondary to bowel ischemia likely due to SBO versus mesenteric vein thrombosis Lactic acidosis secondary to cirrhosis and bowel ischemia - Preliminary blood culture no growth in 24 hours of incubation. - urinary bacterial culture showed no growth - Patient is on IV vancomycin as per pharmacy, IV meropenem 500 mg q.12 hours and IV metronidazole 500 mg Q 8HR DIET: NPO, TPN per pharmacy DVT prophylax: SCD GI prophylaxis: Protonix Bowel regimen: Code status: Full code LINES/DRAINS/ACCESS: ETT: Intubated on 02/18/25 IV access: Right IJ central line with triple-lumen placed on 0 02/15/25, left IJ Darrick catheter placed on 0 02/16/25 Drips: Norepinephrine, vasopressin, phenylephrine, Versed, fentanyl Lopez catheter: placed on 02/03/25 DISPOSITION: ICU Patient's status discussed with Son, health careers instructor time spent more than 81 minutes, including patient care, chart review, and updating the family. Excluding any procedures. Case discussed with Dr. Vasquez Plan discussed with: Other (Son, RN) My Orders My Orders Orders - FEDERICO CLARKE Procedure Category Date Status Time Chest Portable XY 02/20/25 Resulted 04:00 Abg W/ Co-Ox RT 02/20/25 Logged 04:00 Insulin Lantus PHA 02/21/25 In Process (Glargine) (Lantus) 07:00 Sodium Chl 0.9% PHA 02/20/25 In Process (Ns... 18:00 Sodium Chl 0.9% PHA 02/20/25 In Process (Ns... 18:00 Dietary Evaluation Review Comments: 1) Advance to CCHO 60gm + Renal specific 60gm as medically feasible 2) Refer to CDE on DC 3) Continue current plan of care Expected Outcomes/Goals: To meet 75% estimated needs fu 2-3 days Date of Service: February 20, 2025 Billing Provider: WISAM VASQUEZ MD Common Visit Codes: [id number] CARE 30-74 MIN, [id number] CARE-EACH +30MIN FEDERICO CLARKE February 20, 2025 18:59 WISAM VASQUEZ MD February 21, 2025 14:49
[2025-02-20] MEDS: NOREPINEPHRINE BITARTRATE 32 MG in SODIUM CHL 0.9% 218 ML IV SCH (19:35)
[2025-02-20] MEDS: PHENYLEPHRINE INJ 80 MG in SODIUM CHL 0.9% 242 ML IV SCH (20:22)
[2025-02-20] MEDS: TPN PER PHARMACY IV NR (22:15)
[2025-02-21] VITALS (116 sets, daily range): BP systolic 71–159; BP diastolic 38–92; PULSE 106–145; RESP 19–29; TEMP 98.1–100.9; O2SAT 94–99
[2025-02-21 03:40] LABS: Hematocrit 34.9 % (41.0-53.0); Hemoglobin 11.7 g/dL (13.5-17.5); Mean Corpuscular Hgb Conc. 33.6 g/dL (32.0-36.0); Mean Corpuscular Volume 95.3 fL (80.0-100.0); Platelet Count (auto) 80 10^3/uL (140-450); Red Blood Cells 3.66 10^6/uL (4.5-5.90); Red Cell Distribution Width 24.3 % (11.8-14.3); White Blood Cell 9.4 10^3/uL (4.4-10.8)
[2025-02-21 04:03] LABS: Anion Gap 15 (5-15); Carbon Dioxide 20 mmol/L (20-31); Chloride 102 mmol/L (98-107); Magnesium 1.9 mg/dL (1.6-2.6); Potassium 4.2 mmol/L (3.5-5.1); Sodium 137 mmol/L (136-145)
[2025-02-21 04:04] LABS: Basophils % (manual) 0 (0.0-2.0); Blast Cells 0; Myelocytes % 0; Phosphorus 4.3 mg/dL (2.4-5.1); Promyelocytes % 0; Reactive Lymphocytes 0
--- NOTE | 2025-02-21 04:06 | DVH ---
CHEST RADIOGRAPH Indication: PLEASE CONFIRM CENTRAL LINE PLACEMENT Technique: Single frontal view of the chest was obtained Comparison: XY CHEST PORTABLE on DOS: 02/20/25, XY CHEST PORTABLE on DOS: 02/19/25, XY CHEST PORTABLE o n DOS: 02/18/25 IMPRESSION: Right IJ central venous catheter tip in the region of the cavoatrial junction. Endotracheal tube tip approximately 2 cm from the josé antonio. Enteric tube tip in the stomach. Heart appears normal in size. Mild pulmonary vascular congestion. No significant interval change.
[2025-02-21 04:11] LABS: Alanine Aminotransferase 82 U/L (7-40); Albumin 2.2 g/dL (3.2-4.8); Alkaline Phosphatase 126 U/L (46-116); Aspartate Aminotransferase 208 U/L (13-40); Calcium 7.2 mg/dL (8.7-10.4)
[2025-02-21 04:12] LABS: Blood Urea Nitrogen 105 mg/dL (9-23); Glucose 451 mg/dL (74-106)
[2025-02-21 04:13] LABS: BUN/Creatinine Ratio 27.5 (10.0-20.0)
[2025-02-21 04:18] LABS: Total Protein 3.9 g/dL (5.7-8.2)
[2025-02-21 05:22] LABS: Band Neutrophils % (manual) 7; Eosinophils % (manual) 3 (0-7); Lymphocytes % (manual) 5 (10.0-50.0); Metamyelocytes % 1; Monocytes % (manual) 4 (0-12)
[2025-02-21 05:23] LABS: Anisocytosis Slight; Platelet Estimate Decreased; Polychromasia Slight
[2025-02-21 05:57] LABS: Triglycerides 145 mg/dL (< 150)
[2025-02-21] MEDS: INSULIN LANTUS (GLARGINE) 1 /0.01ml (100units/ml) SC SCH (06:16)
[2025-02-21 07:18] LABS: Base Excess -5.7 mmol/L (-2.0-3.0)
--- NOTE | 2025-02-21 09:40 | DVHPN2 ---
Progress Note Date Seen: February 21, 2025 Has the PT tested + for MRSA If YES, has PT been informed?: No Medical Necessity Reason Pt with a Central, PICC or Fol: Yes The following are medically ne: Central Line, Lopez Catheter Objective vital signs Vital Sign Date Time Temp Pulse Resp B/P (MAP) Pulse Ox O2 Delivery O2 Flow Rate FiO2 02/21/25 07:57 124 28 117/66 (83) 98 40 02/21/25 06:30 98.1 98.1 02/21/25 06:00 Mechanical Ventilator+ Total Intake and Output 02/20/25 02/20/25 02/21/25 15:00 23:00 07:00 Intake Total 2275.383 ml 1753.593 ml 897.558 ml Output Total 1060 ml 880 ml Balance 2275.383 ml 693.593 ml 17.558 ml medications Current Medications Medications Dose Ordered Sig/Tanya Route Start Time Stop Time Status Last Admin Dose Admin Metronidazole 100 ml @ 100 mls/hr Q8HR IV 02/06/25 06:00 02/21/25 06:09 100 MLS/HR Amino Acids 0 ml @ 0 mls/hr PER PHARMACY IV 02/15/25 14:00 Pantoprazole Sodium 40 mg BID IV 02/18/25 09:45 02/20/25 22:15 40 MG Meropenem 50 ml @ 17 mls/hr Q12HR IV 02/18/25 22:00 02/20/25 22:00 17 MLS/HR Vasopressin 20 units/Sodium Chloride 100 ml @ 9 mls/hr Q11H7M IV 02/19/25 01:15 02/20/25 10:36 9 MLS/HR Midazolam HCl 50 ml @ 1 mls/hr Q24H IV 02/19/25 08:30 02/21/25 06:55 6 MLS/HR Fentanyl Citrate 250 ml @ 2.5 mls/hr Q24H IV 02/19/25 08:30 02/20/25 18:52 7.5 MLS/HR Vancomycin HCl 0 ml @ 0 mls/hr UD IV 02/19/25 16:15 Diagnostic Test (Pha) 1 strip ACHS 02/19/25 22:00 02/21/25 06:16 1 STRIP Insulin Human Regular HS SC 02/19/25 22:00 02/20/25 22:00 10 UNITS Insulin Human Regular AC SC 02/20/25 07:00 02/21/25 06:11 15 UNITS Dextrose 50 ml UD PRN IV 02/19/25 18:30 Insulin Glargine 20 units QAM SC 02/21/25 07:00 02/21/25 06:16 20 UNITS Octreotide Acetate 100 mcg TID SUBCUT 02/20/25 14:00 02/21/25 06:10 100 MCG Dopamine HCl/ Dextrose 250 ml @ 7.853 mls/ hr Q24H IV 02/20/25 12:00 02/20/25 12:00 7.853 MLS/HR Fat Emulsion Intravenous 200 ml/Sodium Acetate 40 meq/Potassium Acetate 10 meq/ Calcium Gluconate 2.3 meq/Magnesium Sulfate 8 meq/ Multivitamins 10 ml/Insulin Human Regular 30 units/ Amino Acids/ Dextrose 1,142.2462 ml @ 47 mls/hr [id number] IV 02/20/25 22:00 02/21/25 21:59 02/20/25 22:15 47 MLS/HR Phenylephrine HCl 80 mg/Sodium Chloride 250 ml @ 7.5 mls/hr Q24H IV 02/20/25 18:00 02/21/25 09:12 33.75 MLS/HR Norepinephrine Bitartrate 32 mg/ Sodium Chloride 250 ml @ 0.938 mls/ hr Q24H IV 02/20/25 18:00 02/21/25 09:14 13.125 MLS/HR Acetaminophen 650 mg Q6HP PRN VA 02/21/25 04:15 Micafungin Sodium 100 mg/Sodium Chloride 100 ml @ 100 mls/hr DAILY IV 02/21/25 10:00 laboratory and microbiology Laboratory Tests 02/21/25 03:10 Test 02/21/25 03:10 Range/Units Serum Glucose 451 *H 74-106 mg/dL Microbiology Date/Time Source Procedure Growth Status 02/19/25 17:25 Blood Blood Culture - Preliminary Resulted 02/19/25 10:28 Voided Urine Urine Culture - Preliminary Resulted 02/19/25 01:30 Sputum Gram Stain - Final Resulted 02/19/25 01:30 Sputum Respiratory Culture - Preliminary Resulted 02/18/25 22:30 Abdomen Gram Stain - Final Resulted 02/18/25 22:30 Abdomen Anaerobic Culture - Preliminary Resulted 02/18/25 22:30 Abdomen Aerobic Culture - Preliminary Resulted Problem List/Assessment/Plan Problem List/Assessment/Plan INTUBATED HEMODYNAMICALLY LABILE ON VASOPRESSOR SUPPORT ABD SOFT LESS DISTENDED NO BM DRAIN 600 CC SEROSANGUINEOUS WBC WNL KEEP NPO NG NURSE AND FAMILY AT BEDSIDE CONTINUE CLOSE OBSERVATION CONDITION CRITICAL Plan discussed with: Other Dietary Evaluation Review Comments: 1) Advance to CCHO 60gm + Renal specific 60gm as medically feasible 2) Refer to CDE on DC 3) Continue current plan of care Expected Outcomes/Goals: To meet 75% estimated needs fu 2-3 days MARIANA PENA MD February 21, 2025 09:40
[2025-02-21] MEDS: VANCOMYCIN 500mg/100mL 100 ML IV ONE (10:32)
[2025-02-21] MEDS: MICAFUNGIN SODIUM 100 MG in SODIUM CHL 0.9% 100 ML IV SCH (11:27)
--- NOTE | 2025-02-21 11:58 | DVHPN2 ---
Consult Progress Note Subjective Other Systems: Patient noted to have intermittent episodes of AFib RVR on cardiac catheterization technician. Patient on multiple pressors at time of assessment. Objective vital signs Vital Sign Date Time Temp Pulse Resp B/P (MAP) Pulse Ox O2 Delivery O2 Flow Rate FiO2 02/21/25 10:32 123 29 112/64 (80) 98 30 02/21/25 08:30 98.2 98.2 02/21/25 08:20 Mechanical Ventilator+ Total Intake and Output 02/20/25 02/20/25 02/21/25 15:00 23:00 07:00 Intake Total 2275.383 ml 1753.593 ml 897.558 ml Output Total 1060 ml 880 ml Balance 2275.383 ml 693.593 ml 17.558 ml medications Current Medications Medications Dose Ordered Sig/Tanya Route Start Time Stop Time Status Last Admin Dose Admin Metronidazole 100 ml @ 100 mls/hr Q8HR IV 02/06/25 06:00 02/21/25 06:09 100 MLS/HR Amino Acids 0 ml @ 0 mls/hr PER PHARMACY IV 02/15/25 14:00 Pantoprazole Sodium 40 mg BID IV 02/18/25 09:45 02/21/25 10:22 40 MG Meropenem 50 ml @ 17 mls/hr Q12HR IV 02/18/25 22:00 02/20/25 22:00 17 MLS/HR Vasopressin 20 units/Sodium Chloride 100 ml @ 9 mls/hr Q11H7M IV 02/19/25 01:15 02/20/25 10:36 9 MLS/HR Midazolam HCl 50 ml @ 1 mls/hr Q24H IV 02/19/25 08:30 02/21/25 06:55 6 MLS/HR Fentanyl Citrate 250 ml @ 2.5 mls/hr Q24H IV 02/19/25 08:30 02/20/25 18:52 7.5 MLS/HR Vancomycin HCl 0 ml @ 0 mls/hr UD IV 02/19/25 16:15 Dextrose 50 ml UD PRN IV 02/19/25 18:30 Insulin Glargine 20 units QAM SC 02/21/25 07:00 02/21/25 06:16 20 UNITS Octreotide Acetate 100 mcg TID SUBCUT 02/20/25 14:00 02/21/25 06:10 100 MCG Dopamine HCl/ Dextrose 250 ml @ 7.853 mls/ hr Q24H IV 02/20/25 12:00 02/20/25 12:00 7.853 MLS/HR Fat Emulsion Intravenous 200 ml/Sodium Acetate 40 meq/Potassium Acetate 10 meq/ Calcium Gluconate 2.3 meq/Magnesium Sulfate 8 meq/ Multivitamins 10 ml/Insulin Human Regular 30 units/ Amino Acids/ Dextrose 1,142.2462 ml @ 47 mls/hr [id number] IV 02/20/25 22:00 02/21/25 21:59 02/20/25 22:15 47 MLS/HR Phenylephrine HCl 80 mg/Sodium Chloride 250 ml @ 7.5 mls/hr Q24H IV 02/20/25 18:00 02/21/25 09:12 33.75 MLS/HR Norepinephrine Bitartrate 32 mg/ Sodium Chloride 250 ml @ 0.938 mls/ hr Q24H IV 02/20/25 18:00 02/21/25 09:14 13.125 MLS/HR Acetaminophen 650 mg Q6HP PRN [place] 02/21/25 04:15 Micafungin Sodium 100 mg/Sodium Chloride 100 ml @ 100 mls/hr DAILY IV 02/21/25 10:00 02/21/25 11:27 100 MLS/HR Diagnostic Test (Pha) 1 strip Q6HR 02/21/25 12:00 Insulin Human Regular FOLLOW SLIDING SCALE Q6HR SC 02/21/25 12:00 Dextrose 50 ml UD IV 02/21/25 12:00 Fat Emulsion Intravenous 200 ml/Sodium Acetate 40 meq/Potassium Acetate 15 meq/ Calcium Gluconate 4.65 meq/ Magnesium Sulfate 10 meq/ Multivitamins 10 ml/Insulin Human Regular 35 units/ Amino Acids/ Dextrose 1,150.35 ml @ 48 mls/hr [id number] IV 02/21/25 22:00 02/22/25 21:59 Albumin Human 50 ml @ 100 mls/hr BID IV 02/21/25 22:00 UNV Examination: GENERAL:Abnormal, LUNGS:Abnormal (Mechanically ventilated), CVS:Abnormal, NEURO:Abnormal (Chemically sedated) laboratory and microbiology Laboratory Tests 02/21/25 03:10 Test 02/21/25 03:10 Range/Units Serum Glucose 451 *H 74-106 mg/dL Problem List/Assessment/Plan Problem List/Assessment/Plan AFib with RVR, ?new onset Hx of hypertension, currently hypotension on vasopressors Chronic HFpEF, NYHA class III Septic shock Acute SBO s/p exploratory lap with small-bowel resection Liver cirrhosis with ascites Acute renal failure, now on hemodialysis Positive stool occult Thrombocytopenia Hyperlipidemia Diabetes Obesity Plan/Recommendation ( ): Transthoracic echocardiogram reveals EF 65%. [id number] VASc score 4, HAS -BLED score 4. Given positive occult blood, we will hold off with anticoagulation therapy, suggesting SCD for now. The patient is on IV amiodarone, unable to transition to oral given that patient is NPO with NGT to suction per surgical team . Continue with vasopressors for hemodynamic support. Close cardiac surveillance. Monitor and replete electrolytes as needed. Thank you for allowing us to care for this patient. Please call with any questions or concerns. Critical care time spent: 38 minutes. This medical document was created using an electronic medical record system with voice recognition software and computerized dictation system. Although this document has been carefully reviewed, there might still be some phonetic and typographical errors. Occasional wrong-word or ``sound-alike substitutions may have occurred due to the inherent limitations of voice recognition software. These areas are purely typographical due to imperfections of the software programs and do not reflect any compromise in the patient's medical care. Please read the chart carefully and recognize, using context, where these substitutions have occurred. Plan discussed with: Other (Bedside RN) Dietary Evaluation Review Comments: 1) [facility] + Renal specific 60gm as medically feasible 2) Refer to CDE on DC 3) Continue current plan of care Expected Outcomes/Goals: To meet 75% estimated needs fu 2-3 days Date of Service: February 21, 2025 Billing Provider: PEG LEVI Common Visit Codes: [id number] CARE 30-74 MIN PEG LEVI February 21, 2025 11:58
[2025-02-21] MEDS ORDERED: DEXTROSE (50%) 50ML SYRG IV SCH (12:00)
[2025-02-21] MEDS: ACCU-CHEK COMFORT CURVE STRIP VI SCH (12:25)
[2025-02-21] MEDS: InsuLIN REG 1unit/0.01ml Soln (100units/ml) SC SCH (12:31)
[2025-02-21] MEDS: ALBUMIN 25% 50 ML IV ONE (13:01)
--- NOTE | 2025-02-21 14:05 | DVHPN2 ---
Progress Note Date Seen: February 21, 2025 Resident Creating Document: TYRELL TAVAREZ RESIDENT Has the PT tested + for MRSA If YES, has PT been informed?: No Medical Necessity Reason Pt with a Central, PICC or Fol: Yes The following are medically ne: Central Line, Lopez Catheter Subjective Review of Systems This is a 69-year-old male patient with past medical history of recurrent admissions due to hepatic encephalopathy secondary to alcoholic liver cirrhosis, hyperammonemia, history of 2 MD 30 years back, CKD 3B, diabetes mellitus type 2 for 15 years, heart failure with preserved ejection fraction at 60%, colonoscopy status post polypectomy in 2018, paroxysmal atrial fibrillation, splenomegaly, Patrizia UTI in 02/2024, pneumonia status post intubation in 2018, hypertension and hyperlipidemia who presented to the ER with the chief complaint of dizziness and abdominal pain for the past 4x days. Patient reports that on 02/02 he was helping his son, and was working outside in the sun when he experienced dizziness but did not experience any fall, syncope, confusion. Patient since worsening abdominal distention, and diffuse lower abdominal pain. Reports last bowel movement was on 02/03, says that his abdomen was bloated and therefore he induced vomiting himself denies nausea or vomiting. Denies disorientation and confusion during the past week. Reports compliance to lactulose 30 daily. Patient is A&O x4, alert and oriented to name, place, time and situation. Last drink was 1996. On arrival to the ER, patient was vitally stable, WBC increased from 16-19, platelets 123 which is chronic. BMP showed sodium 146, now 132, potassium elevated at 5.8, was 4.5 on 02/04. BUN/creatinine went 26/1.7 GFR 42 on 02/04/2025, now 60/4.3, GFR 14. Patient had been anion gap metabolic acidosis. Lactic acid elevated at 2.3. Ammonia level 180, was 78 12/28. Patient was recently hospitalized in this facility on 07/13/2024 and was diagnosed with hepatic encephalopathy and diastolic heart failure exacerbation. He was A&O x4. Ammonia was 93. Past medical history: recurrent admissions due to hepatic encephalopathy secondary to alcoholic liver cirrhosis, hyperammonemia, history of 2 MD 30 years back, CKD 3B, diabetes mellitus type 2, heart failure with preserved ejection fraction at 60%, colonoscopy status post polypectomy in 2019, paroxysmal atrial fibrillation, splenomegaly, UTI, pneumonia status post intubation in 2018, hypertension and hyperlipidemia Past Surgical History: pneumonia status post intubation in 2018 Family History: None Social history: Lives with family, last drink 1986, denies smoking or illicit drug use PCP Dr. Turner Home medications: Lactulose t.i.d., spironolactone 100 mg, Coreg 6.2 5 mg b.i.d. , glipizide, atorvastatin patient recently stopped taking Sildenafil 100 mg, lisinopril 20 mg, Lasix 40 mg, amlodipine 10 mg, Finerenone in 20 mg, fexofenadine 02/06-Patient seen and examined at the bedside. No acute distress. Abdomen has shifting dullness, distended, hyperactive bowel sounds. 02/07-patient seen and examined at the bedside. Lopez catheter placement is still pending. No I&Os noted. Strict I&Os and Lopez catheter placement ordered again. Patient had a bowel movement earlier today. Bicarbonate increased from 13-17. 1 L D5 with 3 ampules of bicarb ordered. BUN/ creatinine increased to 84/4.9 02/08 - patient seen and examined at the bedside. Had 2 bowel movements. Urine output 1350cc per day, WBC trending down to 14 serum bicarb increased to 22. Overnight, Patient did not get D5 with bicarb 1 L. 02/09 - patient seen and examined at the bedside. Reports feeling better. Had a bowel movement. No suprapubic tenderness. 02/16 - seen and examined in the ICU. Urine output 200 cc. Placed left IJ Darrick catheter, hemodialysis pending. 02/19 - patient seen and examined at bedside. 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 Currently intubated and mechanically ventilated. FiO2 60%, peep 10. Follow up with urine electrolytes. 02/20 - patient seen and examined at bedside. u/o 600ml. Started Dopamine drip 2 mcg/hr and octreotide 300mg tid SQ for renal perfusion. 02/21-patient seen and examined at the bedside. Overnight febrile episodes reported. Urine output 385 cc. Dopamine was held given AFib with RVR. Currently on IV drips amiodarone, Levophed, phenylephrine. Patient underwent hemodialysis 02/20, 1 L taken out. Blood culture 02/19 growing budding yeast, patient started on micafungin Other Systems: Patient seen and examined by myself today on rounds with the medicine resident, I agree with the assessment and plan Objective vital signs Vital Sign Date Time Temp Pulse Resp B/P (MAP) Pulse Ox O2 Delivery O2 Flow Rate FiO2 02/21/25 11:58 123 24 103/62 (76) 97 30 02/21/25 08:30 98.2 98.2 02/21/25 08:20 Mechanical Ventilator+ Total Intake and Output 02/20/25 02/20/25 02/21/25 15:00 23:00 07:00 Intake Total 2275.383 ml 1753.593 ml 897.558 ml Output Total 1060 ml 880 ml Balance 2275.383 ml 693.593 ml 17.558 ml medications Current Medications Medications Dose Ordered Sig/Tanya Route Start Time Stop Time Status Last Admin Dose Admin Metronidazole 100 ml @ 100 mls/hr Q8HR IV 02/06/25 06:00 02/21/25 06:09 100 MLS/HR Amino Acids 0 ml @ 0 mls/hr PER PHARMACY IV 02/15/25 14:00 Pantoprazole Sodium 40 mg BID IV 02/18/25 09:45 02/21/25 10:22 40 MG Meropenem 50 ml @ 17 mls/hr Q12HR IV 02/18/25 22:00 02/21/25 12:57 17 MLS/HR Vasopressin 20 units/Sodium Chloride 100 ml @ 9 mls/hr Q11H7M IV 02/19/25 01:15 02/20/25 10:36 9 MLS/HR Midazolam HCl 50 ml @ 1 mls/hr Q24H IV 02/19/25 08:30 02/21/25 06:55 6 MLS/HR Fentanyl Citrate 250 ml @ 2.5 mls/hr Q24H IV 02/19/25 08:30 02/20/25 18:52 7.5 MLS/HR Vancomycin HCl 0 ml @ 0 mls/hr UD IV 02/19/25 16:15 Dextrose 50 ml UD PRN IV 02/19/25 18:30 Insulin Glargine 20 units QAM SC 02/21/25 07:00 02/21/25 06:16 20 UNITS Octreotide Acetate 100 mcg TID SUBCUT 02/20/25 14:00 02/21/25 06:10 100 MCG Dopamine HCl/ Dextrose 250 ml @ 7.853 mls/ hr Q24H IV 02/20/25 12:00 02/20/25 12:00 7.853 MLS/HR Fat Emulsion Intravenous 200 ml/Sodium Acetate 40 meq/Potassium Acetate 10 meq/ Calcium Gluconate 2.3 meq/Magnesium Sulfate 8 meq/ Multivitamins 10 ml/Insulin Human Regular 30 units/ Amino Acids/ Dextrose 1,142.2462 ml @ 47 mls/hr [id number] IV 02/20/25 22:00 02/21/25 21:59 02/20/25 22:15 47 MLS/HR Phenylephrine HCl 80 mg/Sodium Chloride 250 ml @ 7.5 mls/hr Q24H IV 02/20/25 18:00 02/21/25 09:12 33.75 MLS/HR Norepinephrine Bitartrate 32 mg/ Sodium Chloride 250 ml @ 0.938 mls/ hr Q24H IV 02/20/25 18:00 02/21/25 09:14 13.125 MLS/HR Acetaminophen 650 mg Q6HP PRN WA 02/21/25 04:15 Micafungin Sodium 100 mg/Sodium Chloride 100 ml @ 100 mls/hr DAILY IV 02/21/25 10:00 02/21/25 11:27 100 MLS/HR Diagnostic Test (Pha) 1 strip Q6HR 02/21/25 12:00 02/21/25 12:25 1 STRIP Insulin Human Regular FOLLOW SLIDING SCALE Q6HR SC 02/21/25 12:00 02/21/25 12:31 20 UNITS Dextrose 50 ml UD IV 02/21/25 12:00 Fat Emulsion Intravenous 200 ml/Sodium Acetate 40 meq/Potassium Acetate 15 meq/ Calcium Gluconate 4.65 meq/ Magnesium Sulfate 10 meq/ Multivitamins 10 ml/Insulin Human Regular 35 units/ Amino Acids/ Dextrose 1,150.35 ml @ 48 mls/hr [id number] IV 02/21/25 22:00 02/22/25 21:59 Albumin Human 50 ml @ 100 mls/hr BID IV 02/21/25 22:00 Examination Patient lying in bed, intubated and mechanically ventilated. Left IJ Darrick cath placed 02/16, right IJ CVC placed 02/15 General: Well-built, afebrile, scleral icterus, mucosae are moist Cardiovascular: Regular S1 and S2. No murmurs, gallops or rubs. No JVD elevation. 2+ bilateral pedal edema Respiratory: Bilateral decreased aeration on FiO2 60%, peep 10, saturating 97 % Abdomen: Soft, hypoactive bowel sounds, no rebound tenderness, no organomegaly, no masses. Sutures dry clean and intact. Drain attached, with a serosanguineous discharge Genitourinary: Lopez draining clear urine. MSK/skin: Skin is dry and warm laboratory and microbiology Laboratory Tests 02/21/25 03:10 Test 02/21/25 03:10 Range/Units Serum Glucose 451 *H 74-106 mg/dL Microbiology Date/Time Source Procedure Growth Status 02/19/25 17:25 Blood Blood Culture - Preliminary Resulted 02/19/25 10:28 Voided Urine Urine Culture - Preliminary Resulted 02/19/25 01:30 Sputum Gram Stain - Final Resulted 02/19/25 01:30 Sputum Respiratory Culture - Preliminary Resulted 02/18/25 22:30 Abdomen Gram Stain - Final Resulted 02/18/25 22:30 Abdomen Anaerobic Culture - Preliminary Resulted 02/18/25 22:30 Abdomen Aerobic Culture - Preliminary Resulted Labs and/or images reviewed: Labs reviewed by me, Image(s) reviewed by me Problem List/Assessment/Plan Problem List/Assessment/Plan Acute kidney injury, likely hemodynamic mediated etiology plus or minus ATN needing HD requiring hemodialysis Uremic encephalopathy Rule out urinary obstruction Acute hypoxic respiratory failure s/p mechanical ventilation 02/18 Sepsis due to SBO versus ileus status post exploratory laparotomy and small- bowel resection 02/18 Septic shock requiring pressor support ? Mesenteric thrombosis Decompensated liver cirrhosis Macrocytic Anemia History of hepatic encephalopathy Hyperkalemia Heart failure with preserved ejection fraction Diabetes mellitus type 2 History of paroxysmal AFib History of pneumonia status and intubation History of MD Hypertension Chronic thrombocytopenia Morbid obesity FENA 0.2 02/19/25 Small bowel series with Gastrografin shows Contrast is identified within the colon by 4 hours. This represents a delayed small bowel transit time without definite obstruction. Clinical correlation advised. Plan: Hemodialysis tomorrow BUN uptrending, creatinine stable. Continue Dopamine drip 2 mcg/hr and octreotide 300mg tid SQ for renal perfusion. Patient underwent hemodialysis today. 02/16, 02/17, 02/20 Fena 0.2 DC half NS with sodium bicarb Patient is status post expiratory laparotomy, underwent 02/18 Continue Lopez placement until Urology clears. Consider Urology evaluation. Patient has received a total of 8 bags of D5 NS and 2 bags of D5W Bladder scan 02/07 showed 150 cc 02/07- patient did not receive 1 L D5 with 3 ampules of bicarb ordered 02/06- 1 L D5 with 3 amps bicarb and 3 bags of albumin administered IR Consulted for Paracentesis, no ascites, preliminary blood culture negative Continue IV antibiotics Bilirubin up trending Drips: Levophed, phenylephrine, amiodarone NPO TPN Plan discussed with patient's son at bedside in which all questions have been answered Case discussed with Dr. Aguilera Plan discussed with: Daughter (At the bedside) Dietary Evaluation Review Comments: 1) Advance to CCHO 60gm + Renal specific 60gm as medically feasible 2) Refer to CDE on DC 3) Continue current plan of care Expected Outcomes/Goals: To meet 75% estimated needs fu 2-3 days TYRELL TAVAREZ RESIDENT February 21, 2025 14:05 JOAQUIM AGUILERA MD February 21, 2025 16:10
--- NOTE | 2025-02-21 17:17 | DVHPNRES ---
Progress Note Date Seen: February 21, 2025 Resident Creating Document: FEDERICO CLARKE RESIDENT Has the PT tested + for MRSA If YES, has PT been informed?: No Medical Necessity Reason Pt with a Central, PICC or Fol: Yes The following are medically ne: Central Line, Lopez Catheter Subjective Review of Systems This is a 69-year-old male patient with past medical history of recurrent admissions due to hepatic encephalopathy secondary to alcoholic liver cirrhosis, hyperammonemia, history of 2 KS 30 years back, CKD 3B, diabetes mellitus type 2 for 15 years, heart failure with preserved ejection fraction at 60%, colonoscopy status post polypectomy in 2019, paroxysmal atrial fibrillation, splenomegaly, Patrizia UTI in 02/2024, pneumonia status post intubation in 2018, hypertension and hyperlipidemia who presented to the ER with the chief complaint of dizziness and abdominal pain for the past 4x days. Patient reports that on 02/02 he was helping his son, and was working outside in the sun when he experienced dizziness but did not experience any fall, syncope, confusion. Patient since worsening abdominal distention, and diffuse lower abdominal pain. Reports last bowel movement was on 02/03, says that his abdomen was bloated and therefore he induced vomiting himself denies nausea or vomiting. Denies disorientation and confusion during the past week. Reports compliance to lactulose 30 daily. Patient seen and examined at bedside. 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 Currently intubated and mechanically ventilated. FiO2 40%, peep 8, Tidal volume 500 ml and RR 24. S/P Exploratory laparotomy with bowel resection and anastomosis day 3. Objective vital signs Vital Sign Date Time Temp Pulse Resp B/P (MAP) Pulse Ox O2 Delivery O2 Flow Rate FiO2 02/21/25 16:18 30 02/21/25 16:18 24 95 Mechanical Ventilator+ 02/21/25 16:17 133 102/61 (75) 02/21/25 16:15 98.8 98.8 Total Intake and Output 02/20/25 02/20/25 02/21/25 14:59 22:59 06:59 Intake Total 2175.633 ml 1886.843 ml 1035.718 ml Output Total 1060 ml 880 ml Balance 2175.633 ml 826.843 ml 155.718 ml medications Current Medications Medications Dose Ordered Sig/Tanya Route Start Time Stop Time Status Last Admin Dose Admin Amino Acids 0 ml @ 0 mls/hr PER PHARMACY IV 02/15/25 14:00 Pantoprazole Sodium 40 mg BID IV 02/18/25 09:45 02/21/25 10:22 40 MG Meropenem 50 ml @ 17 mls/hr Q12HR IV 02/18/25 22:00 02/21/25 12:57 17 MLS/HR Vasopressin 20 units/Sodium Chloride 100 ml @ 9 mls/hr Q11H7M IV 02/19/25 01:15 02/20/25 10:36 9 MLS/HR Midazolam HCl 50 ml @ 1 mls/hr Q24H IV 02/19/25 08:30 02/21/25 14:17 6 MLS/HR Fentanyl Citrate 250 ml @ 2.5 mls/hr Q24H IV 02/19/25 08:30 02/20/25 18:52 7.5 MLS/HR Vancomycin HCl 0 ml @ 0 mls/hr UD IV 02/19/25 16:15 Dextrose 50 ml UD PRN IV 02/19/25 18:30 Insulin Glargine 20 units QAM SC 02/21/25 07:00 02/21/25 06:16 20 UNITS Octreotide Acetate 100 mcg TID SUBCUT 02/20/25 14:00 02/21/25 13:55 100 MCG Fat Emulsion Intravenous 200 ml/Sodium Acetate 40 meq/Potassium Acetate 10 meq/ Calcium Gluconate 2.3 meq/Magnesium Sulfate 8 meq/ Multivitamins 10 ml/Insulin Human Regular 30 units/ Amino Acids/ Dextrose 1,142.2462 ml @ 47 mls/hr [id number] IV 02/20/25 22:00 02/21/25 21:59 02/20/25 22:15 47 MLS/HR Phenylephrine HCl 80 mg/Sodium Chloride 250 ml @ 7.5 mls/hr Q24H IV 02/20/25 18:00 02/21/25 15:48 33.75 MLS/HR Norepinephrine Bitartrate 32 mg/ Sodium Chloride 250 ml @ 0.938 mls/ hr Q24H IV 02/20/25 18:00 02/21/25 09:14 13.125 MLS/HR Acetaminophen 650 mg Q6HP PRN MS 02/21/25 04:15 Micafungin Sodium 100 mg/Sodium Chloride 100 ml @ 100 mls/hr DAILY IV 02/21/25 10:00 02/21/25 11:27 100 MLS/HR Diagnostic Test (Pha) 1 strip Q6HR 02/21/25 12:00 02/21/25 12:25 1 STRIP Insulin Human Regular FOLLOW SLIDING SCALE Q6HR SC 02/21/25 12:00 02/21/25 12:31 20 UNITS Dextrose 50 ml UD IV 02/21/25 12:00 Fat Emulsion Intravenous 200 ml/Sodium Acetate 40 meq/Potassium Acetate 15 meq/ Calcium Gluconate 4.65 meq/ Magnesium Sulfate 10 meq/ Multivitamins 10 ml/Insulin Human Regular 35 units/ Amino Acids/ Dextrose 1,150.35 ml @ 48 mls/hr [id number] IV 02/21/25 22:00 02/22/25 21:59 Albumin Human 50 ml @ 100 mls/hr BID IV 02/21/25 22:00 Examination Physical exam: General: RASS -3, afebrile, mucosae are moist Cardiovascular: Normal S1 and S2. No murmurs, gallops or rubs Respiratory: Mechanically assisted ventilation, equal bilateral airway entree. Bilateral crackles Abdomen: Soft, hypoactive bowel sounds, no organomegaly, no masses. Sutures dry clean and intact. Drain attached, with a serosanguineous discharge MSK/skin: Mobilization of limbs cannot be evaluated. Skin is dry and warm. Bilateral edema +. Neurological: Orientation cannot be assessed. No apparent motor no sensitive deficits. Pupils are isocoric and reactive laboratory and microbiology Laboratory Tests 02/21/25 03:10 Test 02/21/25 03:10 Range/Units Serum Glucose 451 *H 74-106 mg/dL Microbiology Date/Time Source Procedure Growth Status 02/19/25 17:25 Blood Blood Culture - Preliminary Resulted 02/19/25 10:28 Voided Urine Urine Culture - Preliminary Resulted 02/19/25 01:30 Sputum Gram Stain - Final Resulted 02/19/25 01:30 Sputum Respiratory Culture - Preliminary Resulted 02/18/25 22:30 Abdomen Gram Stain - Final Resulted 02/18/25 22:30 Abdomen Anaerobic Culture - Preliminary Resulted 02/18/25 22:30 Aerobic Culture - Preliminary Enterococcus faecium Resulted Labs and/or images reviewed: Labs reviewed by me, Image(s) reviewed by me Problem List/Assessment/Plan Problem List/Assessment/Plan Assessment and plan: NEURO: Acute metabolic encephalopathy Hyperammonemia On mechanical ventilation RASS score: -3 CARDIOVASCULAR: Possible acute on chronic diastolic heart failure Paroxysmal atrial fibrillation with secondary hypercoagulable state, on amiodarone drip - Echo on 02/19 revealed lvef 65% .moderate LVH ,septal hypertrophy, normal RV function, RV enlarged mild left atrium enlarged - Blood culture is positive for fungus and ordered echo to rule out infective endocarditis PULMONARY: Acute hypoxic respiratory failure, status post mechanical ventilation GASTROINTESTINAL: Possible Ileus/SBO SBO likely due to adhesion from previous surgery appendectomy 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 The distal small bowel loops are relatively nondilated. There is mesenteric edema and stranding as well as small bowel wall thickening. These findings are suggestive of at least a partial small bowel obstruction. Cirrhotic Morphology liver with sequela portal hypertension including extensive perisplenic varices. Small amount of ascites fluid which may be secondary to the underlying cirrhosis and/or small bowel obstruction. - Gastrografin small bowel series on 02/14/25 showed Contrast only noted in the stomach none in the small bowel. Persistent gaseous distention of the small bowel. - S/P exploratory laparotomy with small-bowel resection and anastomosis, day 3 GENITOURINARY: Acute kidney injury, likely hemodynamic mediated etiology and possible ATN requiring hemodialysis Acute complicated cystitis Uremic encephalopathy Rule out urinary obstruction Anion gap metabolic acidosis likely due to lactic acidosis and kidney impairment - Patient underwent HD yesterday - U/O in last 12 hours 250 mL - Nephrology recommended IV albumin b.i.d. - Discontinued dopamine drip because of increased heart rate. - Patient is on IV vancomycin as per pharmacy, IV meropenem 500 mg q.12 hours and IV micafungin 100 mg daily. ENDOCRINE: Type 2 diabetes mellitus, hemoglobin A1c 7.2 on 01/30 - Moderate sliding scale of insulin - Lantus 20 unit at [facility] METABOLIC: Morbid obesity, BMI 38 kg / m2 Severe protein calorie malnutrition, albumin 2 HEME: Thrombocytopenia and coagulopathy likely due to cirrhosis INFECTIOUS DISEASE: Sepsis with septic shock secondary to bowel ischemia likely due to SBO versus mesenteric vein thrombosis Lactic acidosis secondary to cirrhosis and bowel ischemia - Blood culture demonstrated budding yeast and culture from abdominal abscess showed Enterococcus - Ordered new blood culture, urinary culture - Patient is on IV vancomycin as per pharmacy, IV meropenem 500 mg q.12 hours and IV micafungin 100 mg daily. DIET: NPO, TPN per pharmacy DVT prophylax: SCD GI prophylaxis: Protonix Bowel regimen: Code status: Full code LINES/DRAINS/ACCESS: ETT: Intubated on 02/18/25 IV access: Right femoral central line with triple-lumen placed on 0 02/21/25, left IJ Darrick catheter placed on 0 02/16/25 Drips: Norepinephrine, vasopressin, phenylephrine, Versed, fentanyl Lopez catheter: placed on 02/21/25 DISPOSITION: ICU Patient's status discussed with Daughter, rn progressive care time spent more than 81 minutes, including patient care, chart review, and updating the family. Excluding any procedures. Case discussed with Dr. Vasquez Plan discussed with: Daughter, Son My Orders My Orders Orders - FEDERICO CLARKE RESIDENT Procedure Category Date Status Time Sodium Chl 0.9% PHA 02/20/25 In Process (Ns... 18:00 Sodium Chl 0.9% PHA 02/20/25 In Process (Ns... 18:00 Abg W/ Co-Ox RT 02/21/25 Logged 04:00 Chest Portable XY 02/21/25 Resulted 02:26 Glucose Blood PHA 02/21/25 In Process (Accu-Chek Comfort 12:00 Insulin R (Human) PHA 02/21/25 In Process (Insulin R) 12:00 Dextrose 50% Syringe PHA 02/21/25 In Process 12:00 Albumin 25% (Albutein) PHA 02/21/25 In Process 22:00 Dietary Evaluation Review Comments: 1) Advance to CCHO 60gm + Renal specific 60gm as medically feasible 2) Refer to CDE on DC 3) Continue current plan of care Expected Outcomes/Goals: To meet 75% estimated needs fu 2-3 days Date of Service: February 22, 2025 Billing Provider: WISAM VASQUEZ MD Common Visit Codes: 81565-[id number] CARE 30-74 MIN, 96062-[id number] CARE-EACH +30MIN FEDERICO CLARKE February 21, 2025 17:17 WISAM VASQUEZ MD February 22, 2025 12:12
--- NOTE | 2025-02-21 18:51 | DVHNC2 ---
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) Indication: Hypotension, Volume resuscitation Room prepared for procedure: Yes Yarn Man performed hand hygien: Yes Maximal sterile barrier precau: Mask/Eye shield, Sterile gown, Cap, Sterlie gloves, Large sterlie drape Skin Preparation: Chlorhexidine gluconate, Providine iodine Skin preparation completely dr: Yes Insertion site: Right, Femoral Central line catheter type: [id number]-tcpmuoli-lir dialysis Number of lumens: 3 Central line exchanged over a: No Antiseptic ointment applied to: Yes Informed consent obtained: Yes Risks/benefits/alt described: Yes Notes Procedure note: A time out was performed. My hands were washed immediately prior to the procedure. I wore a surgical cap, mask with protective eyewear, sterile gown and sterile gloves throughout the procedure. The RIGHT inguinal region was prepped using chlorhexidine scrub and draped in sterile fashion using a full drape and sterile probe cover and sterile gel employed. The femoral pulse was identified. Anesthesia was achieved using 1% lidocaine. Palpating the femoral pulse throughout the procedure, the introducer needle was inserted medial to the femoral artery, inferior to the inguinal crease and into the femoral vein. Venous blood was withdrawn. The syringe was removed and a guidewire was advanced into the introducer needle. A small incision was made at the skin surface with a scalpel and the introducer needle was exchanged for a dilator over the guidewire. After appropriate dilation was obtained, the dilator was exchanged over the wire for a central venous catheter. The wire was removed and the catheter was sutured in [address] A sterile sorbaview shield was placed over the catheter at the insertion site. The patient tolerated the procedure without any hemodynamic compromise. At time of procedure completion, all ports aspirated and flushed properly. Estimated blood loss is less than [address] Vasquez Date of Service: February 21, 2025 Billing Provider: FEDERICO MATA Common Visit Codes: PROCEDURE ONLY Procedure Codes: [id number] NON-TUNNEL CV CATH FEDERICO MATA February 21, 2025 18:51 WISAM VASQUEZ MD February 25, 2025 21:37
[2025-02-21] MEDS: ALBUMIN 25% 50 ML IV SCH (22:07)
[2025-02-21] MEDS: TPN PER PHARMACY IV NR (22:18)
--- NOTE | 2025-02-21 23:34 | DVHPN2 ---
Progress Note - Dictate Date Seen: February 21, 2025 Has the PT tested + for MRSA If YES, has PT been informed?: No Medical Necessity Reason Pt with a Central, PICC or Fol: Yes The following are medically ne: Central Line, Lopez Catheter Subjective 69-year-old male postop day 2. S/P laparotomy with resection of small bowel for focal twisting and mesenteric ischemia and recurrent bowel obstruction and distention Pt has 69 y o male wth history of hepatic encephalopathy secondary to alcoholic liver cirrhosis, hyperammonemia, history of 2 [place] 30 years back, CKD 3B, diabetes mellitus type 2, heart failure with preserved ejection fraction at 60%, Patient is currently intubated sedated ; he became hypotensive during dialysis requiring albumin infusions and pressor support Hemodynamically unstable still requiring pressors No active GI bleeding is reported today Patient is in AFib on amiodarone drip vital signs Vital Sign Date Time Temp Pulse Resp B/P (MAP) Pulse Ox O2 Delivery O2 Flow Rate FiO2 02/21/25 23:26 128 24 110/62 (78) 95 30 02/21/25 18:11 Mechanical Ventilator+ 02/21/25 16:15 98.8 98.8 Total Intake and Output 02/20/25 02/20/25 02/21/25 15:00 23:00 07:00 Intake Total 2275.383 ml 1753.593 ml 1024.068 ml Output Total 1060 ml 880 ml Balance 2275.383 ml 693.593 ml 144.068 ml medications Current Medications Medications Dose Ordered Sig/Tanya Route Start Time Stop Time Status Last Admin Dose Admin Amino Acids 0 ml @ 0 mls/hr PER PHARMACY IV 02/15/25 14:00 Pantoprazole Sodium 40 mg BID IV 02/18/25 09:45 02/21/25 22:07 40 MG Meropenem 50 ml @ 17 mls/hr Q12HR IV 02/18/25 22:00 02/21/25 22:07 17 MLS/HR Vasopressin 20 units/Sodium Chloride 100 ml @ 9 mls/hr Q11H7M IV 02/19/25 01:15 02/20/25 10:36 9 MLS/HR Midazolam HCl 50 ml @ 1 mls/hr Q24H IV 02/19/25 08:30 02/21/25 21:07 6 MLS/HR Fentanyl Citrate 250 ml @ 2.5 mls/hr Q24H IV 02/19/25 08:30 02/21/25 21:06 10 MLS/HR Vancomycin HCl 0 ml @ 0 mls/hr UD IV 02/19/25 16:15 Dextrose 50 ml UD PRN IV 02/19/25 18:30 Insulin Glargine 20 units QAM SC 02/21/25 07:00 02/21/25 06:16 20 UNITS Octreotide Acetate 100 mcg TID SUBCUT 02/20/25 14:00 02/21/25 22:07 100 MCG Phenylephrine HCl 80 mg/Sodium Chloride 250 ml @ 7.5 mls/hr Q24H IV 02/20/25 18:00 02/21/25 22:10 33.75 MLS/HR Norepinephrine Bitartrate 32 mg/ Sodium Chloride 250 ml @ 0.938 mls/ hr Q24H IV 02/20/25 18:00 02/21/25 09:14 13.125 MLS/HR Acetaminophen 650 mg Q6HP PRN IN 02/21/25 04:15 Micafungin Sodium 100 mg/Sodium Chloride 100 ml @ 100 mls/hr DAILY IV 02/21/25 10:00 02/21/25 11:27 100 MLS/HR Diagnostic Test (Pha) 1 strip Q6HR 02/21/25 12:00 02/21/25 18:44 1 STRIP Insulin Human Regular FOLLOW SLIDING SCALE Q6HR SC 02/21/25 12:00 02/21/25 18:44 16 UNITS Dextrose 50 ml UD IV 02/21/25 12:00 Fat Emulsion Intravenous 200 ml/Sodium Acetate 40 meq/Potassium Acetate 15 meq/ Calcium Gluconate 4.65 meq/ Magnesium Sulfate 10 meq/ Multivitamins 10 ml/Insulin Human Regular 35 units/ Amino Acids/ Dextrose 1,150.35 ml @ 48 mls/hr [id number] IV 02/21/25 22:00 02/22/25 21:59 02/21/25 22:18 48 MLS/HR Albumin Human 50 ml @ 100 mls/hr BID IV 02/21/25 22:00 02/21/25 22:07 100 MLS/HR objective General: Well-built, obese, slight scleral icterus, mucosae are moist intubated sedated Cardiovascular: Regular S1 and S2 rrr trace bilateral pedal edema Respiratory: Normal B/L air entry on room air. Clear lung sounds on auscultation Abdomen: Soft, dressing is dry, absent bowel sounds, no rebound tenderness, no organomegaly, no masses; well-healed supraumbilical midline scar Neurological: No motor, no sensitive deficits, normal speech. Pupils are isocoric and reactive. Psych/Mental Status: A/Ox3 laboratory and microbiology Laboratory Tests 02/21/25 03:10 Test 02/21/25 03:10 Range/Units Serum Glucose 451 *H 74-106 mg/dL Problems(with codes): (1) S/P laparotomy (2) Altered level of consciousness (3) Acute renal insufficiency (4) Ileus (5) Cirrhosis of liver (6) Hepatic encephalopathy (7) Abdominal pain Prognosis Assessment plan Prognosis remains guarded and condition critical; family at bedside Continue supportive care IV antibiotics IV TPN, IV pressor support NG tube to low intermittent suction Patient is scheduled for dialysis tomorrow but he may be hemodynamically unstable and we need to be re-evaluated in the morning Dietary Evaluation Review Comments: 1) Advance to CCHO 60gm + Renal specific 60gm as medically feasible 2) Refer to CDE on DC 3) Continue current plan of care Expected Outcomes/Goals: To meet 75% estimated needs fu 2-3 days Plan discussed with: Other (ICU Nurse) ZENAIDA PENA MD February 21, 2025 23:34
[2025-02-22] VITALS (108 sets, daily range): BP systolic 49–175; BP diastolic 33–100; PULSE 71–148; RESP 13–30; TEMP 98.9–100.1; O2SAT 94–99
[2025-02-22 04:30] LABS: Hematocrit 33.1 % (41.0-53.0); Hemoglobin 11.3 g/dL (13.5-17.5); Mean Corpuscular Hemoglobin 32.5 pg (28.0-32.0); Mean Corpuscular Hgb Conc. 34.1 g/dL (32.0-36.0); Mean Corpuscular Volume 95.3 fL (80.0-100.0); Platelet Count (auto) 92 10^3/uL (140-450); Red Blood Cells 3.47 10^6/uL (4.5-5.90); Red Cell Distribution Width 23.6 % (11.8-14.3); White Blood Cell 8.8 10^3/uL (4.4-10.8)
[2025-02-22 04:39] LABS: Anion Gap 12 (5-15); Carbon Dioxide 22 mmol/L (20-31); Chloride 103 mmol/L (98-107); Phosphorus 3.8 mg/dL (2.4-5.1); Potassium 3.9 mmol/L (3.5-5.1); Sodium 137 mmol/L (136-145)
[2025-02-22 04:50] LABS: Alanine Aminotransferase 77 U/L (7-40); Alkaline Phosphatase 120 U/L (46-116); Aspartate Aminotransferase 169 U/L (13-40); Calcium 7.5 mg/dL (8.7-10.4); Glucose 343 mg/dL (74-106)
[2025-02-22 04:51] LABS: Albumin 2.2 g/dL (3.2-4.8); Bilirubin, Total 16.6 mg/dL (0.2-1.0)
[2025-02-22 04:52] LABS: Blood Urea Nitrogen 115 mg/dL (9-23)
[2025-02-22 04:53] LABS: BUN/Creatinine Ratio 30.4 (10.0-20.0)
[2025-02-22 04:54] LABS: Total Protein 4.1 g/dL (5.7-8.2)
[2025-02-22 05:04] LABS: Basophils % (manual) 0 (0.0-2.0); Blast Cells 0; Myelocytes % 0; Promyelocytes % 0; Reactive Lymphocytes 0
--- NOTE | 2025-02-22 05:39 | DVH ---
EXAM: XR Chest, 1 View CLINICAL INDICATION: Mechanical ventilation TECHNIQUE: Frontal view of the chest. COMPARISON: XY CHEST PORTABLE on DOS: 02/21/25, XY CHEST PORTABLE on DOS: 02/20/25, XY CHEST PORTABLE on DOS: 02/19/25, XY CHEST PORTABLE on DOS: 02/18/25, XY CHEST XRAY 1 VIEW on DOS: 02/16/25 FINDINGS: LUNGS AND PLEURAL SPACES: Left basilar atelectasis or pneumonia. No pneumothorax. HEART: Unremarkable. No cardiomegaly. MEDIASTINUM: Unremarkable. Normal mediastinal contour. BONES/JOINTS: Unremarkable. No acute fracture. TUBES, LINES AND DEVICES: The endotracheal tube (ETT) is in satisfactory position. Enteric tube ti p cannot be seen but is below the diaphragm. OTHER FINDINGS: . . IMPRESSION: Left basilar atelectasis or pneumonia.
[2025-02-22 06:23] LABS: Anisocytosis Slight; Band Neutrophils % (manual) 6; Eosinophils % (manual) 3 (0-7); Lymphocytes % (manual) 9 (10.0-50.0); Metamyelocytes % 3; Monocytes % (manual) 2 (0-12); Platelet Estimate Decreased; Polychromasia Slight
[2025-02-22] MEDS: SODIUM CHL 0.9% 1000 ML BAG XX ONE (07:00)
[2025-02-22 09:12] LABS: Base Excess -4.1 mmol/L (-2.0-3.0)
--- NOTE | 2025-02-22 11:01 | DVHPN2 ---
Progress Note Date Seen: February 22, 2025 Resident Creating Document: TYRELL TAVAREZ RESIDENT Has the PT tested + for MRSA If YES, has PT been informed?: No Medical Necessity Reason Pt with a Central, PICC or Fol: Yes The following are medically ne: Central Line, Lopez Catheter Subjective Review of Systems This is a 69-year-old male patient with past medical history of recurrent admissions due to hepatic encephalopathy secondary to alcoholic liver cirrhosis, hyperammonemia, history of 2 [place] 30 years back, CKD 3B, diabetes mellitus type 2 for 15 years, heart failure with preserved ejection fraction at 60%, colonoscopy status post polypectomy in 2018, paroxysmal atrial fibrillation, splenomegaly, Patrizia UTI in 02/2024, pneumonia status post intubation in 2018, hypertension and hyperlipidemia who presented to the ER with the chief complaint of dizziness and abdominal pain for the past 4x days. Patient reports that on 02/02 he was helping his son, and was working outside in the sun when he experienced dizziness but did not experience any fall, syncope, confusion. Patient since worsening abdominal distention, and diffuse lower abdominal pain. Reports last bowel movement was on 02/03, says that his abdomen was bloated and therefore he induced vomiting himself denies nausea or vomiting. Denies disorientation and confusion during the past week. Reports compliance to lactulose 30 daily. Patient is A&O x4, alert and oriented to name, place, time and situation. Last drink was 1996. On arrival to the ER, patient was vitally stable, WBC increased from 16-19, platelets 123 which is chronic. BMP showed sodium 146, now 132, potassium elevated at 5.8, was 4.5 on 02/04. BUN/creatinine went 26/1.7 GFR 42 on 02/04/2025, now 60/4.3, GFR 14. Patient had been anion gap metabolic acidosis. Lactic acid elevated at 2.3. Ammonia level 180, was 78 12/28. Patient was recently hospitalized in this facility on 07/13/2024 and was diagnosed with hepatic encephalopathy and diastolic heart failure exacerbation. He was A&O x4. Ammonia was 93. Past medical history: recurrent admissions due to hepatic encephalopathy secondary to alcoholic liver cirrhosis, hyperammonemia, history of 2 [place] 30 years back, CKD 3B, diabetes mellitus type 2, heart failure with preserved ejection fraction at 60%, colonoscopy status post polypectomy in 2019, paroxysmal atrial fibrillation, splenomegaly, UTI, pneumonia status post intubation in 2018, hypertension and hyperlipidemia Past Surgical History: pneumonia status post intubation in 2018 Family History: None Social history: Lives with family, last drink 1986, denies smoking or illicit drug use PCP Dr. Turner Home medications: Lactulose t.i.d., spironolactone 100 mg, Coreg 6.2 5 mg b.i.d. , glipizide, atorvastatin patient recently stopped taking Sildenafil 100 mg, lisinopril 20 mg, Lasix 40 mg, amlodipine 10 mg, Finerenone in 20 mg, fexofenadine 02/06-Patient seen and examined at the bedside. No acute distress. Abdomen has shifting dullness, distended, hyperactive bowel sounds. 02/07-patient seen and examined at the bedside. Lopez catheter placement is still pending. No I&Os noted. Strict I&Os and Lopez catheter placement ordered again. Patient had a bowel movement earlier today. Bicarbonate increased from 13-17. 1 L D5 with 3 ampules of bicarb ordered. BUN/ creatinine increased to 84/4.9 02/08 - patient seen and examined at the bedside. Had 2 bowel movements. Urine output 1350cc per day, WBC trending down to 14 serum bicarb increased to 22. Overnight, Patient did not get D5 with bicarb 1 L. 02/09 - patient seen and examined at the bedside. Reports feeling better. Had a bowel movement. No suprapubic tenderness. 02/16 - seen and examined in the ICU. Urine output 200 cc. Placed left IJ Darrick catheter, hemodialysis pending. 02/19 - patient seen and examined at bedside. 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 Currently intubated and mechanically ventilated. FiO2 60%, peep 10. Follow up with urine electrolytes. 02/20 - patient seen and examined at bedside. u/o 600ml. Started Dopamine drip 2 mcg/hr and octreotide 300mg tid SQ for renal perfusion. 02/21-patient seen and examined at the bedside. Overnight febrile episodes reported. Urine output 385 cc. Dopamine was held given AFib with RVR. Currently on IV drips amiodarone, Levophed, phenylephrine. Patient underwent hemodialysis 02/20, 1 L taken out. Blood culture 02/19 growing budding yeast, patient started on micafungin 02/22-patient seen and examined in ICU. Overnight running 100.1 F. urine output increased to 800 cc, patient undergoing dialysis. Central line was removed 02/21 given febrile episodes. Pending culture results. Bilirubin trending up. Other Systems: Patient seen and examined by myself today on rounds with the medicine resident, I agree with the assessment and plan Patient examined hemodialysis, blood pressure stable Objective vital signs Vital Sign Date Time Temp Pulse Resp B/P (MAP) Pulse Ox O2 Delivery O2 Flow Rate FiO2 02/22/25 10:22 72 28 172/75 (107) 97 30 02/22/25 06:30 98.9 98.9 02/22/25 06:00 Mechanical Ventilator+ Total Intake and Output 02/21/25 02/21/25 02/22/25 15:00 23:00 07:00 Intake Total 1312.08 ml 1081.118 ml 840.089 ml Output Total 455 ml 1425 ml Balance 1312.08 ml 626.118 ml -584.911 ml medications Current Medications Medications Dose Ordered Sig/Tanya Route Start Time Stop Time Status Last Admin Dose Admin Amino Acids 0 ml @ 0 mls/hr PER PHARMACY IV 02/15/25 14:00 Pantoprazole Sodium 40 mg BID IV 02/18/25 09:45 02/22/25 10:27 40 MG Meropenem 50 ml @ 17 mls/hr Q12HR IV 02/18/25 22:00 02/21/25 22:07 17 MLS/HR Vasopressin 20 units/Sodium Chloride 100 ml @ 9 mls/hr Q11H7M IV 02/19/25 01:15 02/21/25 00:15 9 MLS/HR Midazolam HCl 50 ml @ 1 mls/hr Q24H IV 02/19/25 08:30 02/22/25 04:31 6 MLS/HR Fentanyl Citrate 250 ml @ 2.5 mls/hr Q24H IV 02/19/25 08:30 02/21/25 21:06 10 MLS/HR Vancomycin HCl 0 ml @ 0 mls/hr UD IV 02/19/25 16:15 Dextrose 50 ml UD PRN IV 02/19/25 18:30 Insulin Glargine 20 units QAM SC 02/21/25 07:00 02/22/25 06:12 20 UNITS Octreotide Acetate 100 mcg TID SUBCUT 02/20/25 14:00 02/22/25 05:56 100 MCG Phenylephrine HCl 80 mg/Sodium Chloride 250 ml @ 7.5 mls/hr Q24H IV 02/20/25 18:00 02/22/25 04:32 24.375 MLS/HR Norepinephrine Bitartrate 32 mg/ Sodium Chloride 250 ml @ 0.938 mls/ hr Q24H IV 02/20/25 18:00 02/22/25 00:11 14.063 MLS/HR Acetaminophen 650 mg Q6HP PRN AR 02/21/25 04:15 Micafungin Sodium 100 mg/Sodium Chloride 100 ml @ 100 mls/hr DAILY IV 02/21/25 10:00 02/21/25 11:27 100 MLS/HR Diagnostic Test (Pha) 1 strip Q6HR 02/21/25 12:00 02/22/25 05:56 1 STRIP Insulin Human Regular FOLLOW SLIDING SCALE Q6HR SC 02/21/25 12:00 02/22/25 06:09 12 UNITS Dextrose 50 ml UD IV 02/21/25 12:00 Fat Emulsion Intravenous 200 ml/Sodium Acetate 40 meq/Potassium Acetate 15 meq/ Calcium Gluconate 4.65 meq/ Magnesium Sulfate 10 meq/ Multivitamins 10 ml/Insulin Human Regular 35 units/ Amino Acids/ Dextrose 1,150.35 ml @ 48 mls/hr [id number] IV 02/21/25 22:00 02/22/25 21:59 02/21/25 22:18 48 MLS/HR Albumin Human 50 ml @ 100 mls/hr BID IV 02/21/25 22:00 02/22/25 10:27 100 MLS/HR Examination Patient lying in bed, intubated and mechanically ventilated. Left IJ Darrick cath placed 02/16, right IJ CVC replaced 02/21 General: Well-built, afebrile, scleral icterus, mucosae are moist Cardiovascular: Regular S1 and S2. No murmurs, gallops or rubs. No JVD elevation. 2+ bilateral pedal edema Respiratory: Bilateral decreased aeration on FiO2 60%, peep 10, saturating 97 % Abdomen: Soft, hypoactive bowel sounds, no rebound tenderness, no organomegaly, no masses. Sutures dry clean and intact. Drain attached, with a serosanguineous discharge Genitourinary: Lopez draining clear urine. MSK/skin: Skin is dry and warm laboratory and microbiology Laboratory Tests 02/22/25 03:20 Test 02/22/25 03:20 Range/Units Serum Glucose 343 #H 74-106 mg/dL Microbiology Date/Time Source Procedure Growth Status 02/21/25 16:10 Voided Urine Urine Culture - Preliminary Resulted 02/19/25 17:25 Blood Blood Culture - Preliminary Resulted 02/19/25 01:30 Sputum Gram Stain - Final Resulted 02/19/25 01:30 Sputum Respiratory Culture - Preliminary Resulted 02/18/25 22:30 Abdomen Gram Stain - Final Resulted 02/18/25 22:30 Abdomen Anaerobic Culture - Preliminary Resulted 02/18/25 22:30 Aerobic Culture - Preliminary Enterococcus faecium Yeast, not Patrizia albicans Resulted Labs and/or images reviewed: Labs reviewed by me, Image(s) reviewed by me Problem List/Assessment/Plan Problem List/Assessment/Plan Acute kidney injury, likely hemodynamic mediated etiology plus or minus ATN needing HD requiring hemodialysis Uremic encephalopathy Rule out urinary obstruction Acute hypoxic respiratory failure s/p mechanical ventilation 02/18 Sepsis due to SBO versus ileus status post exploratory laparotomy and small- bowel resection 02/18 Septic shock requiring pressor support ? Mesenteric thrombosis Decompensated liver cirrhosis Macrocytic Anemia History of hepatic encephalopathy Hyperkalemia Heart failure with preserved ejection fraction Diabetes mellitus type 2 History of paroxysmal AFib History of pneumonia status and intubation History of [place] Hypertension Chronic thrombocytopenia Morbid obesity FENA 0.2 02/19/25 Small bowel series with Gastrografin shows Contrast is identified within the colon by 4 hours. This represents a delayed small bowel transit time without definite obstruction. Clinical correlation advised. Plan: Continue with UF to 3 L as tolerated, use albumin 25% for blood pressure support with hemodialysis Urine output increasing, BUN uptrending, creatinine stable. Patient undergoing dialysis at this time, approximately 2 L will be taken out. Continue Dopamine drip 2 mcg/hr and octreotide 300mg tid SQ for renal perfusion. Patient underwent hemodialysis today. 02/16, 02/17, 02/20 Fena 0.2 DC half NS with sodium bicarb Patient is status post expiratory laparotomy, underwent 02/18 Continue Lopez placement until Urology clears. Consider Urology evaluation. Patient has received a total of 8 bags of D5 NS and 2 bags of D5W Bladder scan 02/07 showed 150 cc 02/07- patient did not receive 1 L D5 with 3 ampules of bicarb ordered 02/06- 1 L D5 with 3 amps bicarb and 3 bags of albumin administered IR Consulted for Paracentesis, no ascites, preliminary blood culture negative Continue IV antibiotics Bilirubin up trending, follow up with direct bilirubin Drips: Vasopressin, Levophed, phenylephrine, amiodarone NPO TPN Central line replaced 02/21 Darrick cath placed 02/16 Plan discussed with patient's son at bedside in which all questions have been answered Case discussed with Dr. Aguilera Plan discussed with: Patient Dietary Evaluation Review Comments: 1) Advance to CCHO 60gm + Renal specific 60gm as medically feasible 2) Refer to CDE on DC 3) Continue current plan of care Expected Outcomes/Goals: To meet 75% estimated needs fu 2-3 days TYRELL TAVAREZ RESIDENT February 22, 2025 11:01 JOAQUIM AGUILERA MD February 22, 2025 13:28
--- NOTE | 2025-02-22 11:53 | DVHPN2 ---
Consult Progress Note Subjective Other Systems: Patient converted into normal sinus rhythm at time of assessment. Objective vital signs Vital Sign Date Time Temp Pulse Resp B/P (MAP) Pulse Ox O2 Delivery O2 Flow Rate FiO2 02/22/25 10:22 72 28 172/75 (107) 97 30 02/22/25 06:30 98.9 98.9 02/22/25 06:00 Mechanical Ventilator+ Total Intake and Output 02/21/25 02/21/25 02/22/25 15:00 23:00 07:00 Intake Total 1312.08 ml 1081.118 ml 840.089 ml Output Total 455 ml 1425 ml Balance 1312.08 ml 626.118 ml -584.911 ml medications Current Medications Medications Dose Ordered Sig/Tanya Route Start Time Stop Time Status Last Admin Dose Admin Amino Acids 0 ml @ 0 mls/hr PER PHARMACY IV 02/15/25 14:00 Pantoprazole Sodium 40 mg BID IV 02/18/25 09:45 02/22/25 10:27 40 MG Meropenem 50 ml @ 17 mls/hr Q12HR IV 02/18/25 22:00 02/22/25 11:13 17 MLS/HR Vasopressin 20 units/Sodium Chloride 100 ml @ 9 mls/hr Q11H7M IV 02/19/25 01:15 02/21/25 00:15 9 MLS/HR Midazolam HCl 50 ml @ 1 mls/hr Q24H IV 02/19/25 08:30 02/22/25 04:31 6 MLS/HR Fentanyl Citrate 250 ml @ 2.5 mls/hr Q24H IV 02/19/25 08:30 02/21/25 21:06 10 MLS/HR Vancomycin HCl 0 ml @ 0 mls/hr UD IV 02/19/25 16:15 Dextrose 50 ml UD PRN IV 02/19/25 18:30 Insulin Glargine 20 units QAM SC 02/21/25 07:00 02/22/25 06:12 20 UNITS Octreotide Acetate 100 mcg TID SUBCUT 02/20/25 14:00 02/22/25 05:56 100 MCG Phenylephrine HCl 80 mg/Sodium Chloride 250 ml @ 7.5 mls/hr Q24H IV 02/20/25 18:00 02/22/25 04:32 24.375 MLS/HR Norepinephrine Bitartrate 32 mg/ Sodium Chloride 250 ml @ 0.938 mls/ hr Q24H IV 02/20/25 18:00 02/22/25 00:11 14.063 MLS/HR Acetaminophen 650 mg Q6HP PRN CO 02/21/25 04:15 Micafungin Sodium 100 mg/Sodium Chloride 100 ml @ 100 mls/hr DAILY IV 02/21/25 10:00 02/22/25 11:12 100 MLS/HR Diagnostic Test (Pha) 1 strip Q6HR 02/21/25 12:00 02/22/25 05:56 1 STRIP Insulin Human Regular FOLLOW SLIDING SCALE Q6HR SC 02/21/25 12:00 02/22/25 06:09 12 UNITS Dextrose 50 ml UD IV 02/21/25 12:00 Fat Emulsion Intravenous 200 ml/Sodium Acetate 40 meq/Potassium Acetate 15 meq/ Calcium Gluconate 4.65 meq/ Magnesium Sulfate 10 meq/ Multivitamins 10 ml/Insulin Human Regular 35 units/ Amino Acids/ Dextrose 1,150.35 ml @ 48 mls/hr [id number] IV 02/21/25 22:00 02/22/25 21:59 02/21/25 22:18 48 MLS/HR Albumin Human 50 ml @ 100 mls/hr BID IV 02/21/25 22:00 02/22/25 10:27 100 MLS/HR Fat Emulsion Intravenous 200 ml/Sodium Acetate 50 meq/Potassium Acetate 20 meq/ Calcium Gluconate 4.65 meq/ Magnesium Sulfate 10 meq/ Multivitamins 10 ml/Insulin Human Regular 34 units/ Amino Acids/ Dextrose 1,157.84 ml @ 48 mls/hr Q24H8M IV 02/22/25 22:00 02/23/25 21:59 Examination: GENERAL:Abnormal, LUNGS:Abnormal (Mechanically ventilated), CVS:Normal (Now normal sinus rhythm), NEURO:Abnormal (Chemically sedated) laboratory and microbiology Laboratory Tests 02/22/25 03:20 Test 02/22/25 03:20 Range/Units Serum Glucose 343 #H 74-106 mg/dL Problem List/Assessment/Plan Problem List/Assessment/Plan AFib with RVR, ?new onset, now normal sinus rhythm Hx of hypertension, currently hypotension on vasopressors Chronic HFpEF, NYHA class III Septic shock Acute SBO s/p exploratory lap with small-bowel resection Liver cirrhosis with ascites Acute renal failure, now on hemodialysis Positive stool occult Thrombocytopenia Hyperlipidemia Diabetes Obesity Plan/Recommendation ( ): Transthoracic echocardiogram reveals EF 65%. [id number] VASc score 4, HAS -BLED score 4. Given positive occult blood, we will hold off with anticoagulation therapy, suggesting SCD for now. The patient is on IV amiodarone, unable to transition to oral given that patient is NPO with NGT to suction per surgical team . Transition to oral when appropriate. Continue with vasopressors for hemodynamic support. Initiate beta humera when appropriate. Given new blood cultures preliminary finding of budding yeast, primary team has ordered a repeat echocardiogram to evaluate for any valvular vegetations/abnormalities. Close cardiac surveillance. Monitor and replete electrolytes as needed. Thank you for allowing us to care for this patient. Please call with any questions or concerns. Critical care time spent: 38 minutes. This medical document was created using an electronic medical record system with voice recognition software and computerized dictation system. Although this document has been carefully reviewed, there might still be some phonetic and typographical errors. Occasional wrong-word or ``sound-alike substitutions may have occurred due to the inherent limitations of voice recognition software. These areas are purely typographical due to imperfections of the software programs and do not reflect any compromise in the patient's medical care. Please read the chart carefully and recognize, using context, where these substitutions have occurred. Plan discussed with: Son, Other (Bedside RN) Dietary Evaluation Review Comments: 1) [facility] + Renal specific 60gm as medically feasible 2) Refer to CDE on DC 3) Continue current plan of care Expected Outcomes/Goals: To meet 75% estimated needs fu 2-3 days Date of Service: February 22, 2025 Billing Provider: PEG LEVI Common Visit Codes: [id number] CARE 30-74 MIN PEG LEVI February 22, 2025 11:52
--- NOTE | 2025-02-22 14:00 | DVHSR ---
APPROVED REPORT EXAM: Two-dimensional and M-mode echocardiogram with Doppler and color Doppler. INDICATION Limited to evaluate valves only RISK FACTORS Height: 5'5", Weight: 245 Mitral Valve MitralMitral Stenosis E/A ratio0.02D MVAcm2 Other Information Quality : Technically LimitedRhythm : Technically limited study due to on vent. Conclusion lvef 70% normal rv function atria not well seen no severe valve abnormaliites noted cannot rule out catheter in RA
--- NOTE | 2025-02-22 16:09 | DVHPN2 ---
Progress Note Date Seen: February 22, 2025 Has the PT tested + for MRSA If YES, has PT been informed?: No Medical Necessity Reason Pt with a Central, PICC or Fol: Yes The following are medically ne: Central Line, Olpez Catheter Objective vital signs Vital Sign Date Time Temp Pulse Resp B/P (MAP) Pulse Ox O2 Delivery O2 Flow Rate FiO2 02/22/25 14:18 79 28 132/63 (86) 96 30 02/22/25 08:00 Mechanical Ventilator+ 02/22/25 06:30 98.9 98.9 Total Intake and Output 02/21/25 02/21/25 02/22/25 15:00 23:00 07:00 Intake Total 1312.08 ml 1081.118 ml 840.089 ml Output Total 455 ml 1425 ml Balance 1312.08 ml 626.118 ml -584.911 ml medications Current Medications Medications Dose Ordered Sig/Tanya Route Start Time Stop Time Status Last Admin Dose Admin Amino Acids 0 ml @ 0 mls/hr PER PHARMACY IV 02/15/25 14:00 Pantoprazole Sodium 40 mg BID IV 02/18/25 09:45 02/22/25 10:27 40 MG Meropenem 50 ml @ 17 mls/hr Q12HR IV 02/18/25 22:00 02/22/25 11:13 17 MLS/HR Vasopressin 20 units/Sodium Chloride 100 ml @ 9 mls/hr Q11H7M IV 02/19/25 01:15 02/22/25 12:10 9 MLS/HR Midazolam HCl 50 ml @ 1 mls/hr Q24H IV 02/19/25 08:30 02/22/25 04:31 6 MLS/HR Fentanyl Citrate 250 ml @ 2.5 mls/hr Q24H IV 02/19/25 08:30 02/21/25 21:06 10 MLS/HR Vancomycin HCl 0 ml @ 0 mls/hr UD IV 02/19/25 16:15 Insulin Glargine 20 units QAM SC 02/21/25 07:00 02/22/25 06:12 20 UNITS Octreotide Acetate 100 mcg TID SUBCUT 02/20/25 14:00 02/22/25 05:56 100 MCG Phenylephrine HCl 80 mg/Sodium Chloride 250 ml @ 7.5 mls/hr Q24H IV 02/20/25 18:00 02/22/25 04:32 24.375 MLS/HR Norepinephrine Bitartrate 32 mg/ Sodium Chloride 250 ml @ 0.938 mls/ hr Q24H IV 02/20/25 18:00 02/22/25 00:11 14.063 MLS/HR Acetaminophen 650 mg Q6HP PRN HI 02/21/25 04:15 Micafungin Sodium 100 mg/Sodium Chloride 100 ml @ 100 mls/hr DAILY IV 02/21/25 10:00 02/22/25 11:12 100 MLS/HR Diagnostic Test (Pha) 1 strip Q6HR 02/21/25 12:00 02/22/25 11:49 1 STRIP Insulin Human Regular FOLLOW SLIDING SCALE Q6HR SC 02/21/25 12:00 02/22/25 12:04 12 UNITS Dextrose 50 ml UD IV 02/21/25 12:00 Fat Emulsion Intravenous 200 ml/Sodium Acetate 40 meq/Potassium Acetate 15 meq/ Calcium Gluconate 4.65 meq/ Magnesium Sulfate 10 meq/ Multivitamins 10 ml/Insulin Human Regular 35 units/ Amino Acids/ Dextrose 1,150.35 ml @ 48 mls/hr [id number] IV 02/21/25 22:00 02/22/25 21:59 02/21/25 22:18 48 MLS/HR Albumin Human 50 ml @ 100 mls/hr BID IV 02/21/25 22:00 02/22/25 10:27 100 MLS/HR Fat Emulsion Intravenous 200 ml/Sodium Acetate 50 meq/Potassium Acetate 20 meq/ Calcium Gluconate 4.65 meq/ Magnesium Sulfate 10 meq/ Multivitamins 10 ml/Insulin Human Regular 34 units/ Amino Acids/ Dextrose 1,157.84 ml @ 48 mls/hr Q24H8M IV 02/22/25 22:00 02/23/25 21:59 laboratory and microbiology Laboratory Tests 02/22/25 03:20 Test 02/22/25 03:20 Range/Units Serum Glucose 343 #H 74-106 mg/dL Microbiology Date/Time Source Procedure Growth Status 02/21/25 16:10 Voided Urine Urine Culture - Preliminary Resulted 02/21/25 15:00 Blood Blood Culture - Preliminary NO GROWTH AFTER 24 HOURS OF INCUBATION. Resulted 02/19/25 01:30 Sputum Gram Stain - Final Resulted 02/19/25 01:30 Sputum Respiratory Culture - Preliminary Resulted 02/18/25 22:30 Abdomen Gram Stain - Final Resulted 02/18/25 22:30 Abdomen Anaerobic Culture - Preliminary Resulted 02/18/25 22:30 Aerobic Culture - Preliminary Enterococcus faecium Yeast, not Patrizia albicans Resulted Problem List/Assessment/Plan Problem List/Assessment/Plan INTUBATED HEMODYNAMICALLY LABILE ON VASOPRESSOR SUPPORT ABD SOFT LESS DISTENDED BM + MELANOTIC DRAIN 500 CC SEROSANGUINEOUS WBC WNL KEEP NPO NG NURSE AND FAMILY AT BEDSIDE CONTINUE CLOSE OBSERVATION CONDITION CRITICAL Plan discussed with: Other Dietary Evaluation Review Comments: 1) Advance to [facility] 60gm + Renal specific 60gm as medically feasible 2) Refer to CDE on DC 3) Continue current plan of care Expected Outcomes/Goals: To meet 75% estimated needs fu 2-3 days MARIANA PENA MD February 22, 2025 16:09
--- NOTE | 2025-02-22 18:25 | DVHPNRES ---
Progress Note Date Seen: February 22, 2025 Resident Creating Document: FEDERICO CLARKE RESIDENT Has the PT tested + for MRSA If YES, has PT been informed?: No Medical Necessity Reason Pt with a Central, PICC or Fol: Yes The following are medically ne: Central Line, Lopez Catheter Subjective Review of Systems This is a 69-year-old male patient with past medical history of recurrent admissions due to hepatic encephalopathy secondary to alcoholic liver cirrhosis, hyperammonemia, history of 2 NV 30 years back, CKD 3B, diabetes mellitus type 2 for 15 years, heart failure with preserved ejection fraction at 60%, colonoscopy status post polypectomy in 2019, paroxysmal atrial fibrillation, splenomegaly, Patrizia UTI in 02/2024, pneumonia status post intubation in 2018, hypertension and hyperlipidemia who presented to the ER with the chief complaint of dizziness and abdominal pain for the past 4x days. Patient reports that on 02/02 he was helping his son, and was working outside in the sun when he experienced dizziness but did not experience any fall, syncope, confusion. Patient since worsening abdominal distention, and diffuse lower abdominal pain. Reports last bowel movement was on 02/03, says that his abdomen was bloated and therefore he induced vomiting himself denies nausea or vomiting. Denies disorientation and confusion during the past week. Reports compliance to lactulose 30 daily. Patient seen and examined at bedside. 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 Currently intubated and mechanically ventilated. FiO2 30%, peep 8, Tidal volume 500 ml and RR 24. S/P Exploratory laparotomy with bowel resection and anastomosis day 4. Objective vital signs Vital Sign Date Time Temp Pulse Resp B/P (MAP) Pulse Ox O2 Delivery O2 Flow Rate FiO2 02/22/25 17:45 86 24 137/60 (85) 95 111/47 (68) 02/22/25 16:30 100.1 100.1 02/22/25 16:28 30 02/22/25 16:00 Mechanical Ventilator+ Total Intake and Output 02/21/25 02/21/25 02/22/25 15:00 23:00 07:00 Intake Total 1312.08 ml 1081.118 ml 864.152 ml Output Total 455 ml 1425 ml Balance 1312.08 ml 626.118 ml -560.848 ml medications Current Medications Medications Dose Ordered Sig/Tanya Route Start Time Stop Time Status Last Admin Dose Admin Amino Acids 0 ml @ 0 mls/hr PER PHARMACY IV 02/15/25 14:00 Pantoprazole Sodium 40 mg BID IV 02/18/25 09:45 02/22/25 10:27 40 MG Meropenem 50 ml @ 17 mls/hr Q12HR IV 02/18/25 22:00 02/22/25 11:13 17 MLS/HR Vasopressin 20 units/Sodium Chloride 100 ml @ 9 mls/hr Q11H7M IV 02/19/25 01:15 02/22/25 12:10 9 MLS/HR Midazolam HCl 50 ml @ 1 mls/hr Q24H IV 02/19/25 08:30 02/22/25 04:31 6 MLS/HR Fentanyl Citrate 250 ml @ 2.5 mls/hr Q24H IV 02/19/25 08:30 02/21/25 21:06 10 MLS/HR Vancomycin HCl 0 ml @ 0 mls/hr UD IV 02/19/25 16:15 Insulin Glargine 20 units QAM SC 02/21/25 07:00 02/22/25 06:12 20 UNITS Octreotide Acetate 100 mcg TID SUBCUT 02/20/25 14:00 02/22/25 14:00 100 MCG Phenylephrine HCl 80 mg/Sodium Chloride 250 ml @ 7.5 mls/hr Q24H IV 02/20/25 18:00 02/22/25 04:32 24.375 MLS/HR Norepinephrine Bitartrate 32 mg/ Sodium Chloride 250 ml @ 0.938 mls/ hr Q24H IV 02/20/25 18:00 02/22/25 00:11 14.063 MLS/HR Acetaminophen 650 mg Q6HP PRN PA 02/21/25 04:15 Micafungin Sodium 100 mg/Sodium Chloride 100 ml @ 100 mls/hr DAILY IV 02/21/25 10:00 02/22/25 11:12 100 MLS/HR Diagnostic Test (Pha) 1 strip Q6HR 02/21/25 12:00 02/22/25 11:49 1 STRIP Insulin Human Regular FOLLOW SLIDING SCALE Q6HR SC 02/21/25 12:00 02/22/25 12:04 12 UNITS Dextrose 50 ml UD IV 02/21/25 12:00 Fat Emulsion Intravenous 200 ml/Sodium Acetate 40 meq/Potassium Acetate 15 meq/ Calcium Gluconate 4.65 meq/ Magnesium Sulfate 10 meq/ Multivitamins 10 ml/Insulin Human Regular 35 units/ Amino Acids/ Dextrose 1,150.35 ml @ 48 mls/hr [id number] IV 02/21/25 22:00 02/22/25 21:59 02/21/25 22:18 48 MLS/HR Albumin Human 50 ml @ 100 mls/hr BID IV 02/21/25 22:00 02/22/25 10:27 100 MLS/HR Fat Emulsion Intravenous 200 ml/Sodium Acetate 50 meq/Potassium Acetate 20 meq/ Calcium Gluconate 4.65 meq/ Magnesium Sulfate 10 meq/ Multivitamins 10 ml/Insulin Human Regular 34 units/ Amino Acids/ Dextrose 1,157.84 ml @ 48 mls/hr Q24H8M IV 02/22/25 22:00 02/23/25 21:59 Examination Physical exam: General: RASS -3, afebrile, mucosae are moist Cardiovascular: Normal S1 and S2. No murmurs, gallops or rubs Respiratory: Mechanically assisted ventilation, equal bilateral airway entree. Bilateral crackles Abdomen: Soft, hypoactive bowel sounds, no organomegaly, no masses. Bloody serosanguineous discharge coming out from the lower part of the suture, Drain attached, with a serosanguineous discharge MSK/skin: Mobilization of limbs cannot be evaluated. Skin is dry and warm. Bilateral edema +. Neurological: Orientation cannot be assessed. No apparent motor no sensitive deficits. Pupils are isocoric and reactive laboratory and microbiology Laboratory Tests 02/22/25 03:20 Test 02/22/25 03:20 Range/Units Serum Glucose 343 #H 74-106 mg/dL Microbiology Date/Time Source Procedure Growth Status 02/21/25 16:10 Voided Urine Urine Culture - Preliminary Resulted 02/21/25 15:00 Blood Blood Culture - Preliminary NO GROWTH AFTER 24 HOURS OF INCUBATION. Resulted 02/19/25 01:30 Sputum Gram Stain - Final Resulted 02/19/25 01:30 Sputum Respiratory Culture - Preliminary Resulted 02/18/25 22:30 Abdomen Gram Stain - Final Resulted 02/18/25 22:30 Abdomen Anaerobic Culture - Preliminary Resulted 02/18/25 22:30 Aerobic Culture - Preliminary Enterococcus faecium Yeast, not Patrizia albicans Resulted Labs and/or images reviewed: Labs reviewed by me, Image(s) reviewed by me Problem List/Assessment/Plan Problem List/Assessment/Plan Assessment and plan: NEURO: Acute metabolic encephalopathy Hyperammonemia On mechanical ventilation RASS score: -3 CARDIOVASCULAR: Possible acute on chronic diastolic heart failure Paroxysmal atrial fibrillation with secondary hypercoagulable state, on amiodarone drip - Echo on 02/19 revealed lvef 65% .moderate LVH ,septal hypertrophy, normal RV function, RV enlarged mild left atrium enlarged - Blood culture is positive for fungus - Echo on 02/22/25 showed EF 70% and no valve abnormalities noted. 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 The distal small bowel loops are relatively nondilated. There is mesenteric edema and stranding as well as small bowel wall thickening. These findings are suggestive of at least a partial small bowel obstruction. Cirrhotic Morphology liver with sequela portal hypertension including extensive perisplenic varices. Small amount of ascites fluid which may be secondary to the underlying cirrhosis and/or small bowel obstruction. - Gastrografin small bowel series on 02/14/25 showed Contrast only noted in the stomach none in the small bowel. Persistent gaseous distention of the small bowel. - S/P exploratory laparotomy with small-bowel resection and anastomosis, day 4 - Ammonia dropped down to 50 but bilirubin is going up and right now 16 GENITOURINARY: Acute kidney injury, likely hemodynamic mediated etiology and possible ATN requiring hemodialysis Acute complicated cystitis Uremic encephalopathy Rule out urinary obstruction Anion gap metabolic acidosis likely due to lactic acidosis and kidney impairment - Patient underwent HD today and 2.3L ultrafiltration removed - U/O in last 12 hours 550 mL - Nephrology recommended IV albumin b.i.d. - Discontinued dopamine drip because of increased heart rate. - Patient is on IV vancomycin as per pharmacy, IV meropenem 500 mg q.12 hours and IV micafungin 100 mg daily. ENDOCRINE: Type 2 diabetes mellitus, hemoglobin A1c 7.2 on 01/30 - Moderate sliding scale of insulin - Lantus 20 unit at [facility] METABOLIC: Morbid obesity, BMI 38 kg / m2 Severe protein calorie malnutrition, albumin 2 HEME: Thrombocytopenia and coagulopathy likely due to cirrhosis INFECTIOUS DISEASE: Sepsis with septic shock secondary to bowel ischemia likely due to SBO versus mesenteric vein thrombosis Lactic acidosis secondary to cirrhosis and bowel ischemia - Blood culture demonstrated budding yeast and culture from abdominal abscess showed Enterococcus - Ordered new blood culture, urinary culture - Patient is on IV vancomycin as per pharmacy, IV meropenem 500 mg q.12 hours and IV micafungin 100 mg daily. DIET: NPO, TPN per pharmacy DVT prophylax: SCD GI prophylaxis: Protonix Bowel regimen: Code status: Full code LINES/DRAINS/ACCESS: ETT: Intubated on 02/18/25 IV access: Right femoral central line with triple-lumen placed on 0 02/21/25, left IJ Darrick catheter placed on 0 02/16/25 Drips: Norepinephrine, vasopressin, phenylephrine, Versed, fentanyl Lopez catheter: placed on 02/21/25 DISPOSITION: ICU Patient's status discussed with Daughter, manager managed care time spent more than 81 minutes, including patient care, chart review, and updating the family. Excluding any procedures. Case discussed with Dr. Vasquez Plan discussed with: Son, Other (RN) My Orders My Orders Orders - FEDERICO CLARKE Procedure Category Date Status Time Ok To Change Lopez ORDERS 02/21/25 Transmitted 19:42 Chest Portable XY 02/22/25 Resulted 04:00 Abg W/ Co-Ox RT 02/22/25 Logged 04:00 Dietary Evaluation Review Comments: 1) [facility] + Renal specific 60gm as medically feasible 2) Refer to CDE on DC 3) Continue current plan of care Expected Outcomes/Goals: To meet 75% estimated needs fu 2-3 days Date of Service: February 22, 2025 Billing Provider: WISAM VASQUEZ MD Common Visit Codes: [id number] CARE 30-74 MIN, [id number] CARE-EACH +30MIN FEDERICO CLARKE February 22, 2025 18:25 WISAM VASQUEZ MD February 25, 2025 21:45
[2025-02-22] MEDS: VANCOMYCIN 500mg/100mL 100 ML IV ONE (19:39)
[2025-02-22] MEDS: TPN PER PHARMACY IV NR (22:16)
[2025-02-23] VITALS (105 sets, daily range): BP systolic 93–159; BP diastolic 40–68; PULSE 71–86; RESP 13–31; TEMP 98.4–99.8; O2SAT 94–99
[2025-02-23 04:00] LABS: Hemoglobin 9.2 g/dL (13.5-17.5); White Blood Cell 6.5 10^3/uL (4.4-10.8)
[2025-02-23 04:03] LABS: Hematocrit 26.3 % (41.0-53.0); Mean Corpuscular Hemoglobin 32.8 pg (28.0-32.0); Mean Corpuscular Hgb Conc. 34.8 g/dL (32.0-36.0); Mean Corpuscular Volume 94.3 fL (80.0-100.0); Platelet Count (auto) 60 10^3/uL (140-450); Red Blood Cells 2.79 10^6/uL (4.5-5.90); Red Cell Distribution Width 22.4 % (11.8-14.3)
[2025-02-23 04:10] LABS: Alkaline Phosphatase 97 U/L (46-116); Anion Gap 13 (5-15); Carbon Dioxide 22 mmol/L (20-31); Chloride 103 mmol/L (98-107); Potassium 3.6 mmol/L (3.5-5.1); Sodium 138 mmol/L (136-145)
[2025-02-23 04:11] LABS: Phosphorus 3.3 mg/dL (2.4-5.1)
[2025-02-23 04:21] LABS: BUN/Creatinine Ratio 32.7 (10.0-20.0)
[2025-02-23 04:41] LABS: Glucose 290 mg/dL (74-106)
[2025-02-23 04:42] LABS: Alanine Aminotransferase 51 U/L (7-40); Albumin 2.1 g/dL (3.2-4.8); Aspartate Aminotransferase 81 U/L (13-40); Bilirubin, Total 16.7 mg/dL (0.2-1.0); Blood Urea Nitrogen 102 mg/dL (9-23); Calcium 7.4 mg/dL (8.7-10.4); Total Protein 3.9 g/dL (5.7-8.2)
[2025-02-23 04:46] LABS: Basophils % (manual) 0 (0.0-2.0); Blast Cells 0; Myelocytes % 0; Promyelocytes % 0; Reactive Lymphocytes 0
[2025-02-23 05:36] LABS: Anisocytosis Slight; Band Neutrophils % (manual) 4; Eosinophils % (manual) 3 (0-7); Lymphocytes % (manual) 8 (10.0-50.0); Metamyelocytes % 1; Monocytes % (manual) 2 (0-12); Platelet Estimate Decreased; Polychromasia Slight
--- NOTE | 2025-02-23 05:52 | DVH ---
EXAM: XR Chest, 1 View CLINICAL INDICATION: mechanical ventilation TECHNIQUE: Frontal view of the chest. COMPARISON: XY CHEST PORTABLE on DOS: 02/22/25, XY CHEST PORTABLE on DOS: 02/21/25, XY CHEST PORTABLE on DOS: 02/20/25, XY CHEST PORTABLE on DOS: 02/19/25, XY CHEST PORTABLE on DOS: 02/18/25 FINDINGS: LUNGS AND PLEURAL SPACES: See below. HEART: Cardiomegaly with mild congestion. MEDIASTINUM: Unremarkable. Normal mediastinal contour. BONES/JOINTS: Unremarkable. No acute fracture. TUBES, LINES AND DEVICES: The endotracheal tube (ETT) is in satisfactory position. Enteric tube ti p in the stomach. OTHER FINDINGS: . . . . IMPRESSION: Cardiomegaly with mild congestion.
[2025-02-23 07:47] LABS: Base Excess -3.9 mmol/L (-2.0-3.0)
--- NOTE | 2025-02-23 09:47 | DVHPN2 ---
Consult Progress Note Date Seen: February 23, 2025 Subjective Other Systems: Notified of transient a-flutter events overnight. Now NSR Objective vital signs Vital Sign Date Time Temp Pulse Resp B/P (MAP) Pulse Ox O2 Delivery O2 Flow Rate FiO2 02/23/25 07:46 106/46 02/23/25 06:45 82 26 96 02/23/25 06:00 Mechanical Ventilator+ 30 30 02/23/25 04:45 98.9 98.9 Total Intake and Output 02/22/25 02/22/25 02/23/25 14:59 22:59 06:59 Intake Total 1036.160 ml 1318.385 ml 543.02 ml Output Total 1620 ml 1635 ml Balance 1036.160 ml -301.615 ml -1091.98 ml medications Current Medications Medications Dose Ordered Sig/Tanya Route Start Time Stop Time Status Last Admin Dose Admin Amino Acids 0 ml @ 0 mls/hr PER PHARMACY IV 02/15/25 14:00 Pantoprazole Sodium 40 mg BID IV 02/18/25 09:45 02/22/25 22:11 40 MG Meropenem 50 ml @ 17 mls/hr Q12HR IV 02/18/25 22:00 02/22/25 22:17 17 MLS/HR Vasopressin 20 units/Sodium Chloride 100 ml @ 9 mls/hr Q11H7M IV 02/19/25 01:15 02/23/25 07:46 9 MLS/HR Midazolam HCl 50 ml @ 1 mls/hr Q24H IV 02/19/25 08:30 02/23/25 07:45 7 MLS/HR Fentanyl Citrate 250 ml @ 2.5 mls/hr Q24H IV 02/19/25 08:30 02/22/25 19:42 10 MLS/HR Vancomycin HCl 0 ml @ 0 mls/hr UD IV 02/19/25 16:15 Insulin Glargine 20 units QAM SC 02/21/25 07:00 02/23/25 07:27 20 UNITS Octreotide Acetate 100 mcg TID SUBCUT 02/20/25 14:00 02/23/25 05:41 100 MCG Phenylephrine HCl 80 mg/Sodium Chloride 250 ml @ 7.5 mls/hr Q24H IV 02/20/25 18:00 02/22/25 04:32 24.375 MLS/HR Norepinephrine Bitartrate 32 mg/ Sodium Chloride 250 ml @ 0.938 mls/ hr Q24H IV 02/20/25 18:00 02/23/25 07:46 10.313 MLS/HR Acetaminophen 650 mg Q6HP PRN IN 02/21/25 04:15 Micafungin Sodium 100 mg/Sodium Chloride 100 ml @ 100 mls/hr DAILY IV 02/21/25 10:00 02/22/25 11:12 100 MLS/HR Diagnostic Test (Pha) 1 strip Q6HR 02/21/25 12:00 02/23/25 05:41 1 STRIP Insulin Human Regular FOLLOW SLIDING SCALE Q6HR SC 02/21/25 12:00 02/23/25 05:43 12 UNITS Dextrose 50 ml UD IV 02/21/25 12:00 Albumin Human 50 ml @ 100 mls/hr BID IV 02/21/25 22:00 02/22/25 22:12 100 MLS/HR Fat Emulsion Intravenous 200 ml/Sodium Acetate 50 meq/Potassium Acetate 20 meq/ Calcium Gluconate 4.65 meq/ Magnesium Sulfate 10 meq/ Multivitamins 10 ml/Insulin Human Regular 34 units/ Amino Acids/ Dextrose 1,157.84 ml @ 48 mls/hr Q24H8M IV 02/22/25 22:00 02/23/25 21:59 02/22/25 22:16 48 MLS/HR Examination: GENERAL:Abnormal, LUNGS:Abnormal (Endotracheally intubated FiO2 at 30%), CVS:Normal (NSR), NEURO:Abnormal (Chemically sedated) laboratory and microbiology Laboratory Tests 02/23/25 03:20 Test 02/23/25 03:20 Range/Units Serum Glucose 290 H 74-106 mg/dL Problem List/Assessment/Plan Problem List/Assessment/Plan AFib with RVR, ?new onset, now normal sinus rhythm Hx of hypertension, currently hypotension on vasopressors Chronic HFpEF, NYHA class III Septic shock Acute SBO s/p exploratory lap with small-bowel resection Liver cirrhosis with ascites Acute renal failure, now on hemodialysis Positive stool occult Thrombocytopenia Hyperlipidemia Diabetes Obesity Plan/Recommendation ( ) Transthoracic echocardiogram revealed EF 65-70% with normal valve function and no evidence of vegetations. Given positive occult blood, we will hold off with anticoagulation therapy ([id number] VASc score 4, HAS -BLED score 4). DVT prophylaxis: continue SCDs. Continue amiodarone gtt, unable to transition to oral given NPO status with NGT to suction per surgical team. Continue with vasopressors for hemodynamic support. Transition to flecainide and/or BB when appropriate. Monitor and replete electrolytes as needed. Cardiology team will continue as needed basis. Currently cardiac stable. Kindly call if in need to further follow-up. Thank you for allowing us to care for this patient. Critical care time spent: 30 minutes. This medical document was created using an electronic medical record system with voice recognition software and computerized dictation system. Although this document has been carefully reviewed, there might still be some phonetic and typographical errors. Occasional wrong-word or ``sound-alike substitutions may have occurred due to the inherent limitations of voice recognition software. These areas are purely typographical due to imperfections of the software programs and do not reflect any compromise in the patient's medical care. Please read the chart carefully and recognize, using context, where these substitutions have occurred. Plan discussed with: Daughter, Other Dietary Evaluation Review Comments: 1[facility] + Renal specific 60gm as medically feasible 2) Refer to CDE on DC 3) Continue current plan of care Expected Outcomes/Goals: To meet 75% estimated needs fu 2-3 days Date of Service: February 23, 2025 Billing Provider: YADY JAIME Cardiology Common Codes: [id number] CARE 30-74 MIN YADY JAIME February 23, 2025 09:47
--- NOTE | 2025-02-23 10:26 | DVHPN2 ---
Progress Note Date Seen: February 23, 2025 Resident Creating Document: TYRELL TAVAREZ RESIDENT Has the PT tested + for MRSA If YES, has PT been informed?: No Medical Necessity Reason Pt with a Central, PICC or Fol: Yes The following are medically ne: Central Line, Lopez Catheter Subjective Review of Systems This is a 69-year-old male patient with past medical history of recurrent admissions due to hepatic encephalopathy secondary to alcoholic liver cirrhosis, hyperammonemia, history of 2 PA 30 years back, CKD 3B, diabetes mellitus type 2 for 15 years, heart failure with preserved ejection fraction at 60%, colonoscopy status post polypectomy in 2018, paroxysmal atrial fibrillation, splenomegaly, Patrizia UTI in 02/2024, pneumonia status post intubation in 2018, hypertension and hyperlipidemia who presented to the ER with the chief complaint of dizziness and abdominal pain for the past 4x days. Patient reports that on 02/02 he was helping his son, and was working outside in the sun when he experienced dizziness but did not experience any fall, syncope, confusion. Patient since worsening abdominal distention, and diffuse lower abdominal pain. Reports last bowel movement was on 02/03, says that his abdomen was bloated and therefore he induced vomiting himself denies nausea or vomiting. Denies disorientation and confusion during the past week. Reports compliance to lactulose 30 daily. Patient is A&O x4, alert and oriented to name, place, time and situation. Last drink was 1996. On arrival to the ER, patient was vitally stable, WBC increased from 16-19, platelets 123 which is chronic. BMP showed sodium 146, now 132, potassium elevated at 5.8, was 4.5 on 02/04. BUN/creatinine went 26/1.7 GFR 42 on 02/04/2025, now 60/4.3, GFR 14. Patient had been anion gap metabolic acidosis. Lactic acid elevated at 2.3. Ammonia level 180, was 78 12/28. Patient was recently hospitalized in this facility on 07/13/2024 and was diagnosed with hepatic encephalopathy and diastolic heart failure exacerbation. He was A&O x4. Ammonia was 93. Past medical history: recurrent admissions due to hepatic encephalopathy secondary to alcoholic liver cirrhosis, hyperammonemia, history of 2 PA 30 years back, CKD 3B, diabetes mellitus type 2, heart failure with preserved ejection fraction at 60%, colonoscopy status post polypectomy in 2019, paroxysmal atrial fibrillation, splenomegaly, UTI, pneumonia status post intubation in 2018, hypertension and hyperlipidemia Past Surgical History: pneumonia status post intubation in 2018 Family History: None Social history: Lives with family, last drink 1986, denies smoking or illicit drug use PCP Dr. Turner Home medications: Lactulose t.i.d., spironolactone 100 mg, Coreg 6.2 5 mg b.i.d. , glipizide, atorvastatin patient recently stopped taking Sildenafil 100 mg, lisinopril 20 mg, Lasix 40 mg, amlodipine 10 mg, Finerenone in 20 mg, fexofenadine 02/06-Patient seen and examined at the bedside. No acute distress. Abdomen has shifting dullness, distended, hyperactive bowel sounds. 02/07-patient seen and examined at the bedside. Lopez catheter placement is still pending. No I&Os noted. Strict I&Os and Lopez catheter placement ordered again. Patient had a bowel movement earlier today. Bicarbonate increased from 13-17. 1 L D5 with 3 ampules of bicarb ordered. BUN/ creatinine increased to 84/4.9 02/08 - patient seen and examined at the bedside. Had 2 bowel movements. Urine output 1350cc per day, WBC trending down to 14 serum bicarb increased to 22. Overnight, Patient did not get D5 with bicarb 1 L. 02/09 - patient seen and examined at the bedside. Reports feeling better. Had a bowel movement. No suprapubic tenderness. 02/16 - seen and examined in the ICU. Urine output 200 cc. Placed left IJ Darrick catheter, hemodialysis pending. 02/19 - patient seen and examined at bedside. 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 Currently intubated and mechanically ventilated. FiO2 60%, peep 10. Follow up with urine electrolytes. 02/20 - patient seen and examined at bedside. u/o 600ml. Started Dopamine drip 2 mcg/hr and octreotide 300mg tid SQ for renal perfusion. 02/21-patient seen and examined at the bedside. Overnight febrile episodes reported. Urine output 385 cc. Dopamine was held given AFib with RVR. Currently on IV drips amiodarone, Levophed, phenylephrine. Patient underwent hemodialysis 02/20, 1 L taken out. Blood culture 02/19 growing budding yeast, patient started on micafungin 02/22-patient seen and examined in ICU. Overnight running 100.1 F. urine output increased to 800 cc, patient undergoing dialysis. Central line was removed 02/21 given febrile episodes. Pending culture results. Bilirubin trending up. 02/23-patient is seen and examined in the ICU. Overnight 100.1 F, saturating 97 on 30% FiO2. Urine output 900 cc. Hemoglobin down. 9.2. Platelets downtrending 60. BUN/creatinine downtrending 102/3.12. Hemodialysis tomorrow. Patient is on 2 pressors. Objective vital signs Vital Sign Date Time Temp Pulse Resp B/P (MAP) Pulse Ox O2 Delivery O2 Flow Rate FiO2 02/23/25 08:00 78 24 96 Mechanical Ventilator+ 30 30 02/23/25 07:46 106/46 02/23/25 04:45 98.9 98.9 Total Intake and Output 02/22/25 02/22/25 02/23/25 15:00 23:00 07:00 Intake Total 1016.472 ml 1466.612 ml 344.07 ml Output Total 1620 ml 1635 ml Balance 1016.472 ml -153.388 ml -1290.93 ml medications Current Medications Medications Dose Ordered Sig/Tanya Route Start Time Stop Time Status Last Admin Dose Admin Amino Acids 0 ml @ 0 mls/hr PER PHARMACY IV 02/15/25 14:00 Pantoprazole Sodium 40 mg BID IV 02/18/25 09:45 02/22/25 22:11 40 MG Meropenem 50 ml @ 17 mls/hr Q12HR IV 02/18/25 22:00 02/22/25 22:17 17 MLS/HR Vasopressin 20 units/Sodium Chloride 100 ml @ 9 mls/hr Q11H7M IV 02/19/25 01:15 02/23/25 07:46 9 MLS/HR Midazolam HCl 50 ml @ 1 mls/hr Q24H IV 02/19/25 08:30 02/23/25 07:45 7 MLS/HR Fentanyl Citrate 250 ml @ 2.5 mls/hr Q24H IV 02/19/25 08:30 02/22/25 19:42 10 MLS/HR Vancomycin HCl 0 ml @ 0 mls/hr UD IV 02/19/25 16:15 Insulin Glargine 20 units QAM SC 02/21/25 07:00 02/23/25 07:27 20 UNITS Octreotide Acetate 100 mcg TID SUBCUT 02/20/25 14:00 02/23/25 05:41 100 MCG Phenylephrine HCl 80 mg/Sodium Chloride 250 ml @ 7.5 mls/hr Q24H IV 02/20/25 18:00 02/22/25 04:32 24.375 MLS/HR Norepinephrine Bitartrate 32 mg/ Sodium Chloride 250 ml @ 0.938 mls/ hr Q24H IV 02/20/25 18:00 02/23/25 07:46 10.313 MLS/HR Acetaminophen 650 mg Q6HP PRN [place] 02/21/25 04:15 Micafungin Sodium 100 mg/Sodium Chloride 100 ml @ 100 mls/hr DAILY IV 02/21/25 10:00 02/22/25 11:12 100 MLS/HR Diagnostic Test (Pha) 1 strip Q6HR 02/21/25 12:00 02/23/25 05:41 1 STRIP Insulin Human Regular FOLLOW SLIDING SCALE Q6HR SC 02/21/25 12:00 02/23/25 05:43 12 UNITS Dextrose 50 ml UD IV 02/21/25 12:00 Albumin Human 50 ml @ 100 mls/hr BID IV 02/21/25 22:00 02/22/25 22:12 100 MLS/HR Fat Emulsion Intravenous 200 ml/Sodium Acetate 50 meq/Potassium Acetate 20 meq/ Calcium Gluconate 4.65 meq/ Magnesium Sulfate 10 meq/ Multivitamins 10 ml/Insulin Human Regular 34 units/ Amino Acids/ Dextrose 1,157.84 ml @ 48 mls/hr Q24H8M IV 02/22/25 22:00 02/23/25 21:59 02/22/25 22:16 48 MLS/HR Examination Patient lying in bed, intubated and mechanically ventilated. Left IJ Darrick cath placed 02/16, right IJ CVC replaced 02/21 General: Well-built, afebrile, scleral icterus, mucosae are moist Cardiovascular: Regular S1 and S2. No murmurs, gallops or rubs. No JVD elevation. 2+ bilateral pedal edema Respiratory: Bilateral decreased aeration on FiO2 60%, peep 10, saturating 97 % Abdomen: Soft, hypoactive bowel sounds, no rebound tenderness, no organomegaly, no masses. Sutures dry clean and intact. Drain attached, with a serosanguineous discharge Genitourinary: Lopez draining clear urine. MSK/skin: Skin is dry and warm laboratory and microbiology Laboratory Tests 02/23/25 03:20 Test 02/23/25 03:20 Range/Units Serum Glucose 290 H 74-106 mg/dL Microbiology Date/Time Source Procedure Growth Status 02/21/25 16:10 Voided Urine Urine Culture - Preliminary Resulted 02/21/25 15:00 Blood Blood Culture - Preliminary NO GROWTH AFTER 24 HOURS OF INCUBATION. Resulted 02/19/25 01:30 Sputum Gram Stain - Final Complete 02/19/25 01:30 Respiratory Culture - Final Yeast, not Patrizia albicans Complete 02/18/25 22:30 Abdomen Gram Stain - Final Resulted 02/18/25 22:30 Abdomen Anaerobic Culture - Preliminary Resulted 02/18/25 22:30 Aerobic Culture - Preliminary Enterococcus faecium Yeast, not Patrizia albicans Resulted Labs and/or images reviewed: Labs reviewed by me, Image(s) reviewed by me Problem List/Assessment/Plan Problem List/Assessment/Plan Acute kidney injury, likely hemodynamic mediated etiology plus or minus ATN needing HD requiring hemodialysis Uremic encephalopathy Rule out urinary obstruction Acute hypoxic respiratory failure s/p mechanical ventilation 02/18 Sepsis due to SBO versus ileus status post exploratory laparotomy and small- bowel resection 02/18 Septic shock requiring pressor support ? Mesenteric thrombosis Decompensated liver cirrhosis Macrocytic Anemia History of hepatic encephalopathy Hyperkalemia Heart failure with preserved ejection fraction Diabetes mellitus type 2 History of paroxysmal AFib History of pneumonia status and intubation History of PA Hypertension Chronic thrombocytopenia Morbid obesity FENA 0.2 02/19/25 Small bowel series with Gastrografin shows Contrast is identified within the colon by 4 hours. This represents a delayed small bowel transit time without definite obstruction. Clinical correlation advised. Plan: Urine output increasing, BUN/creatinine downtrending. Patient underwent dialysis yesterday. Scheduled for tomorrow. Patient is off phenylephrine Dopamine drip 2 mcg/hr on hold, continue octreotide 300mg tid SQ for renal perfusion. Patient underwent hemodialysis today. 02/16, 02/17, 02/20, 02/22 Blood culture 02/21 negative-, 02/19 blood culture showed yeast Fena 0.2 DC half NS with sodium bicarb Patient is status post expiratory laparotomy, underwent 02/18 Continue Lopez placement until Urology clears. Consider Urology evaluation. Patient has received a total of 8 bags of D5 NS and 2 bags of D5W Bladder scan 02/07 showed 150 cc 02/07- patient did not receive 1 L D5 with 3 ampules of bicarb ordered 02/06- 1 L D5 with 3 amps bicarb and 3 bags of albumin administered IR Consulted for Paracentesis, no ascites, preliminary blood culture negative Continue IV antibiotics Bilirubin up trending, follow up with direct bilirubin Drips: Vasopressin, Levophed, amiodarone NPO TPN Central line replaced 02/21 Darrick cath placed 02/16 Plan discussed with patient's son at bedside in which all questions have been answered Case discussed with Dr. Clements Plan discussed with: Patient Dietary Evaluation Review Comments: 1) Advance to CCHO 60gm + Renal specific 60gm as medically feasible 2) Refer to CDE on DC 3) Continue current plan of care Expected Outcomes/Goals: To meet 75% estimated needs fu 2-3 days TYRELL TAVAREZ RESIDENT February 23, 2025 10:26
[2025-02-23] MEDS: VANCOMYCIN 500mg/100mL 100 ML IV ONE (15:11)
--- NOTE | 2025-02-23 16:19 | DVHPNRES ---
Progress Note Date Seen: February 23, 2025 Resident Creating Document: FEDERICO CLARKE RESIDENT Has the PT tested + for MRSA If YES, has PT been informed?: No Medical Necessity Reason Pt with a Central, PICC or Fol: Yes The following are medically ne: Central Line, Lopez Catheter Subjective Review of Systems This is a 69-year-old male patient with past medical history of recurrent admissions due to hepatic encephalopathy secondary to alcoholic liver cirrhosis, hyperammonemia, history of 2 PR 30 years back, CKD 3B, diabetes mellitus type 2 for 15 years, heart failure with preserved ejection fraction at 60%, colonoscopy status post polypectomy in 2019, paroxysmal atrial fibrillation, splenomegaly, Patrizia UTI in 02/2024, pneumonia status post intubation in 2018, hypertension and hyperlipidemia who presented to the ER with the chief complaint of dizziness and abdominal pain for the past 4x days. Patient reports that on 02/02 he was helping his son, and was working outside in the sun when he experienced dizziness but did not experience any fall, syncope, confusion. Patient since worsening abdominal distention, and diffuse lower abdominal pain. Reports last bowel movement was on 02/03, says that his abdomen was bloated and therefore he induced vomiting himself denies nausea or vomiting. Denies disorientation and confusion during the past week. Reports compliance to lactulose 30 daily. Patient seen and examined at bedside. 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 Currently intubated and mechanically ventilated. FiO2 30%, peep 8, Tidal volume 500 ml and RR 24. S/P Exploratory laparotomy with bowel resection and anastomosis day 5. Objective vital signs Vital Sign Date Time Temp Pulse Resp B/P (MAP) Pulse Ox O2 Delivery O2 Flow Rate FiO2 02/23/25 16:00 74 02/23/25 16:00 25 98 Mechanical Ventilator+ 30 30 02/23/25 15:45 98.5 107/44 (65) 98.5 Total Intake and Output 02/22/25 02/22/25 02/23/25 15:00 23:00 07:00 Intake Total 1016.472 ml 1466.612 ml 392.07 ml Output Total 1620 ml 1635 ml Balance 1016.472 ml -153.388 ml -1242.93 ml medications Current Medications Medications Dose Ordered Sig/Tanya Route Start Time Stop Time Status Last Admin Dose Admin Amino Acids 0 ml @ 0 mls/hr PER PHARMACY IV 02/15/25 14:00 Pantoprazole Sodium 40 mg BID IV 02/18/25 09:45 02/23/25 10:35 40 MG Meropenem 50 ml @ 17 mls/hr Q12HR IV 02/18/25 22:00 02/23/25 12:36 17 MLS/HR Vasopressin 20 units/Sodium Chloride 100 ml @ 9 mls/hr Q11H7M IV 02/19/25 01:15 02/23/25 07:46 9 MLS/HR Midazolam HCl 50 ml @ 1 mls/hr Q24H IV 02/19/25 08:30 02/23/25 13:39 7 MLS/HR Fentanyl Citrate 250 ml @ 2.5 mls/hr Q24H IV 02/19/25 08:30 02/23/25 13:40 10 MLS/HR Vancomycin HCl 0 ml @ 0 mls/hr UD IV 02/19/25 16:15 Insulin Glargine 20 units QAM SC 02/21/25 07:00 02/23/25 07:27 20 UNITS Octreotide Acetate 100 mcg TID SUBCUT 02/20/25 14:00 02/23/25 12:37 100 MCG Phenylephrine HCl 80 mg/Sodium Chloride 250 ml @ 7.5 mls/hr Q24H IV 02/20/25 18:00 02/22/25 04:32 24.375 MLS/HR Norepinephrine Bitartrate 32 mg/ Sodium Chloride 250 ml @ 0.938 mls/ hr Q24H IV 02/20/25 18:00 02/23/25 07:46 10.313 MLS/HR Acetaminophen 650 mg Q6HP PRN [place] 02/21/25 04:15 Micafungin Sodium 100 mg/Sodium Chloride 100 ml @ 100 mls/hr DAILY IV 02/21/25 10:00 02/23/25 10:35 100 MLS/HR Diagnostic Test (Pha) 1 strip Q6HR 02/21/25 12:00 02/23/25 12:36 1 STRIP Insulin Human Regular FOLLOW SLIDING SCALE Q6HR SC 02/21/25 12:00 02/23/25 12:36 12 UNITS Dextrose 50 ml UD IV 02/21/25 12:00 Fat Emulsion Intravenous 200 ml/Sodium Acetate 50 meq/Potassium Acetate 20 meq/ Calcium Gluconate 4.65 meq/ Magnesium Sulfate 10 meq/ Multivitamins 10 ml/Insulin Human Regular 34 units/ Amino Acids/ Dextrose 1,157.84 ml @ 48 mls/hr Q24H8M IV 02/22/25 22:00 02/23/25 21:59 02/22/25 22:16 48 MLS/HR Fat Emulsion Intravenous 200 ml/Sodium Acetate 50 meq/Potassium Acetate 20 meq/ Potassium Phosphate 20 meq/ Calcium Gluconate 4.65 meq/ Magnesium Sulfate 10 meq/ Multivitamins 10 ml/Insulin Human Regular 35 units/ Amino Acids/ Dextrose 1,162.3955 ml @ 48 mls/hr [id number] IV 02/23/25 22:00 02/24/25 21:59 Examination Physical exam: General: RASS -3, afebrile, mucosae are moist Cardiovascular: Normal S1 and S2. No murmurs, gallops or rubs Respiratory: Mechanically assisted ventilation, equal bilateral airway entree. Bilateral crackles Abdomen: Soft, hypoactive bowel sounds, no organomegaly, no masses. Bloody serosanguineous discharge coming out from the lower part of the suture,LISA drain, with serosanguineous discharge 950 mL in last 12 hours MSK/skin: Mobilization of limbs cannot be evaluated. Skin is dry and warm. Bilateral edema +. Neurological: Orientation cannot be assessed. No apparent motor no sensitive deficits. Pupils are isocoric and reactive laboratory and microbiology Laboratory Tests 02/23/25 03:20 Test 02/23/25 03:20 Range/Units Serum Glucose 290 H 74-106 mg/dL Microbiology Date/Time Source Procedure Growth Status 02/21/25 22:50 Catheter Tip Other Aerobic Culture - Preliminary Resulted 02/21/25 16:10 Voided Urine Urine Culture - Preliminary Resulted 02/21/25 15:00 Blood Blood Culture - Preliminary NO GROWTH AFTER 48 HOURS OF INCUBATION. Resulted 02/21/25 11:45 Sputum Gram Stain Pending Resulted 02/21/25 11:45 Sputum Respiratory Culture - Preliminary Resulted Labs and/or images reviewed: Labs reviewed by me, Image(s) reviewed by me Problem List/Assessment/Plan Problem List/Assessment/Plan Assessment and plan: NEURO: Acute metabolic encephalopathy Hyperammonemia On mechanical ventilation RASS score: -3 CARDIOVASCULAR: Possible acute on chronic diastolic heart failure Paroxysmal atrial fibrillation with secondary hypercoagulable state, on amiodarone drip - Echo on 02/19 revealed lvef 65% .moderate LVH ,septal hypertrophy, normal RV function, RV enlarged mild left atrium enlarged - Blood culture is positive for fungus - Echo on 02/22/25 showed EF 70% and no valve abnormalities noted. 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 The distal small bowel loops are relatively nondilated. There is mesenteric edema and stranding as well as small bowel wall thickening. These findings are suggestive of at least a partial small bowel obstruction. Cirrhotic Morphology liver with sequela portal hypertension including extensive perisplenic varices. Small amount of ascites fluid which may be secondary to the underlying cirrhosis and/or small bowel obstruction. - Gastrografin small bowel series on 02/14/25 showed Contrast only noted in the stomach none in the small bowel. Persistent gaseous distention of the small bowel. - S/P exploratory laparotomy with small-bowel resection and anastomosis, day 5 - Ammonia dropped down to 50 but bilirubin is going up and right now 16 GENITOURINARY: Acute kidney injury, likely hemodynamic mediated etiology and possible ATN requiring hemodialysis Acute complicated cystitis Uremic encephalopathy Rule out urinary obstruction Anion gap metabolic acidosis likely due to lactic acidosis and kidney impairment - Patient underwent HD yesterday and 2.3L ultrafiltration removed - U/O in last 12 hours 650 mL - Nephrology recommended IV albumin b.i.d. - Discontinued IV albumin as patient seems volume overloaded. - Discontinued dopamine drip because of increased heart rate. - Patient is on IV vancomycin as per pharmacy, IV meropenem 500 mg q.12 hours and IV micafungin 100 mg daily. ENDOCRINE: Type 2 diabetes mellitus, hemoglobin A1c 7.2 on 01/30 - Moderate sliding scale of insulin - Lantus 20 unit at [facility] METABOLIC: Morbid obesity, BMI 38 kg / m2 Severe protein calorie malnutrition, albumin 2 HEME: Thrombocytopenia and coagulopathy likely due to cirrhosis INFECTIOUS DISEASE: Sepsis with septic shock secondary to bowel ischemia likely due to SBO versus mesenteric vein thrombosis Lactic acidosis secondary to cirrhosis and bowel ischemia - Blood culture demonstrated budding yeast and culture from abdominal abscess showed Enterococcus - Ordered new blood culture, urinary culture - Patient is on IV vancomycin as per pharmacy, IV meropenem 500 mg q.12 hours and IV micafungin 100 mg daily. DIET: NPO, TPN per pharmacy DVT prophylax: SCD GI prophylaxis: Protonix Bowel regimen: Code status: Full code LINES/DRAINS/ACCESS: ETT: Intubated on 02/18/25 IV access: Right femoral central line with triple-lumen placed on 0 02/21/25, left IJ Darrick catheter placed on 0 02/16/25 Drips: Norepinephrine, vasopressin, phenylephrine, Versed, fentanyl Lopez catheter: placed on 02/21/25 DISPOSITION: ICU Patient's status discussed with Daughter, home health aide caregiver time spent more than 81 minutes, including patient care, chart review, and updating the family. Excluding any procedures. Case discussed with Plan discussed with: Daughter, Son, Other (RN) My Orders My Orders Orders - FEDERICO CLARKE Procedure Category Date Status Time Chest Portable XY 02/23/25 Resulted 04:00 Abg W/ Co-Ox RT 02/23/25 Logged 04:00 Dietary Evaluation Review Comments: 1) Advance to CCHO 60gm + Renal specific 60gm as medically feasible 2) Refer to CDE on DC 3) Continue current plan of care Expected Outcomes/Goals: To meet 75% estimated needs fu 2-3 days FEDERICO CLARKE February 23, 2025 16:19
--- NOTE | 2025-02-23 17:45 | DVHPN2 ---
Progress Note Date Seen: February 23, 2025 Has the PT tested + for MRSA If YES, has PT been informed?: No Medical Necessity Reason Pt with a Central, PICC or Fol: Yes The following are medically ne: Central Line, Lopez Catheter Objective vital signs Vital Sign Date Time Temp Pulse Resp B/P (MAP) Pulse Ox O2 Delivery O2 Flow Rate FiO2 02/23/25 17:00 124/52 02/23/25 17:00 98.6 77 24 97 98.6 02/23/25 16:49 30 02/23/25 16:00 Mechanical Ventilator+ Total Intake and Output 02/22/25 02/22/25 02/23/25 15:00 23:00 07:00 Intake Total 1016.472 ml 1466.612 ml 392.07 ml Output Total 1620 ml 1635 ml Balance 1016.472 ml -153.388 ml -1242.93 ml medications Current Medications Medications Dose Ordered Sig/Tanya Route Start Time Stop Time Status Last Admin Dose Admin Amino Acids 0 ml @ 0 mls/hr PER PHARMACY IV 02/15/25 14:00 Pantoprazole Sodium 40 mg BID IV 02/18/25 09:45 02/23/25 10:35 40 MG Vasopressin 20 units/Sodium Chloride 100 ml @ 9 mls/hr Q11H7M IV 02/19/25 01:15 02/23/25 07:46 9 MLS/HR Midazolam HCl 50 ml @ 1 mls/hr Q24H IV 02/19/25 08:30 02/23/25 13:39 7 MLS/HR Fentanyl Citrate 250 ml @ 2.5 mls/hr Q24H IV 02/19/25 08:30 02/23/25 13:40 10 MLS/HR Vancomycin HCl 0 ml @ 0 mls/hr UD IV 02/19/25 16:15 Insulin Glargine 20 units QAM SC 02/21/25 07:00 02/23/25 07:27 20 UNITS Octreotide Acetate 100 mcg TID SUBCUT 02/20/25 14:00 02/23/25 12:37 100 MCG Phenylephrine HCl 80 mg/Sodium Chloride 250 ml @ 7.5 mls/hr Q24H IV 02/20/25 18:00 02/22/25 04:32 24.375 MLS/HR Norepinephrine Bitartrate 32 mg/ Sodium Chloride 250 ml @ 0.938 mls/ hr Q24H IV 02/20/25 18:00 02/23/25 07:46 10.313 MLS/HR Acetaminophen 650 mg Q6HP PRN MT 02/21/25 04:15 Micafungin Sodium 100 mg/Sodium Chloride 100 ml @ 100 mls/hr DAILY IV 02/21/25 10:00 02/23/25 10:35 100 MLS/HR Diagnostic Test (Pha) 1 strip Q6HR 02/21/25 12:00 02/23/25 12:36 1 STRIP Insulin Human Regular FOLLOW SLIDING SCALE Q6HR SC 02/21/25 12:00 02/23/25 12:36 12 UNITS Dextrose 50 ml UD IV 02/21/25 12:00 Fat Emulsion Intravenous 200 ml/Sodium Acetate 50 meq/Potassium Acetate 20 meq/ Calcium Gluconate 4.65 meq/ Magnesium Sulfate 10 meq/ Multivitamins 10 ml/Insulin Human Regular 34 units/ Amino Acids/ Dextrose 1,157.84 ml @ 48 mls/hr Q24H8M IV 02/22/25 22:00 02/23/25 21:59 02/22/25 22:16 48 MLS/HR Fat Emulsion Intravenous 200 ml/Sodium Acetate 50 meq/Potassium Acetate 20 meq/ Potassium Phosphate 20 meq/ Calcium Gluconate 4.65 meq/ Magnesium Sulfate 10 meq/ Multivitamins 10 ml/Insulin Human Regular 35 units/ Amino Acids/ Dextrose 1,162.3955 ml @ 48 mls/hr [id number] IV 02/23/25 22:00 02/24/25 21:59 Meropenem 50 ml @ 17 mls/hr DAILY IV 02/24/25 10:00 laboratory and microbiology Laboratory Tests 02/23/25 03:20 Test 02/23/25 03:20 Range/Units Serum Glucose 290 H 74-106 mg/dL Microbiology Date/Time Source Procedure Growth Status 02/21/25 22:50 Catheter Tip Other Aerobic Culture - Preliminary Resulted 02/21/25 16:10 Voided Urine Urine Culture - Preliminary Resulted 02/21/25 15:00 Blood Blood Culture - Preliminary NO GROWTH AFTER 48 HOURS OF INCUBATION. Resulted 02/21/25 11:45 Sputum Gram Stain - Final Resulted 02/21/25 11:45 Sputum Respiratory Culture - Preliminary Resulted Problem List/Assessment/Plan Problem List/Assessment/Plan INTUBATED HEMODYNAMICALLY LABILE ON VASOPRESSOR SUPPORT ABD SOFT LESS DISTENDED BM + MELANOTIC DRAIN 900 CC SEROSANGUINEOUS WBC WNL KEEP NPO NG NURSE AND FAMILY AT BEDSIDE CONTINUE CLOSE OBSERVATION CONDITION REMAINS CRITICAL Plan discussed with: Other Dietary Evaluation Review Comments: 1) Advance to CCHO 60gm + Renal specific 60gm as medically feasible 2) Refer to CDE on DC 3) Continue current plan of care Expected Outcomes/Goals: To meet 75% estimated needs fu 2-3 days MARIANA PENA MD February 23, 2025 17:45
[2025-02-23] MEDS: TPN PER PHARMACY IV NR (22:05)
[2025-02-24] VITALS (115 sets, daily range): BP systolic 86–133; BP diastolic 37–61; PULSE 72–87; RESP 11–31; TEMP 98.7–99.5; O2SAT 96–100
[2025-02-24 03:56] LABS: Hematocrit 26.6 % (41.0-53.0); Hemoglobin 9.1 g/dL (13.5-17.5); Mean Corpuscular Hemoglobin 32.3 pg (28.0-32.0); Mean Corpuscular Hgb Conc. 34.4 g/dL (32.0-36.0); Platelet Count (auto) 87 10^3/uL (140-450); Red Blood Cells 2.83 10^6/uL (4.5-5.90); Red Cell Distribution Width 22.9 % (11.8-14.3); White Blood Cell 6.5 10^3/uL (4.4-10.8)
[2025-02-24 04:03] LABS: Basophils % (manual) 0 (0.0-2.0); Blast Cells 0; Myelocytes % 0; Promyelocytes % 0; Reactive Lymphocytes 0
[2025-02-24 04:18] LABS: Alanine Aminotransferase 45 U/L (7-40); Alkaline Phosphatase 107 U/L (46-116); Anion Gap 12 (5-15); Aspartate Aminotransferase 75 U/L (13-40); Calcium 7.8 mg/dL (8.7-10.4); Carbon Dioxide 25 mmol/L (20-31); Chloride 103 mmol/L (98-107); Glucose 238 mg/dL (74-106); Magnesium 2.1 mg/dL (1.6-2.6); Phosphorus 3.3 mg/dL (2.4-5.1); Potassium 3.5 mmol/L (3.5-5.1); Sodium 140 mmol/L (136-145)
[2025-02-24 04:19] LABS: Blood Urea Nitrogen 113 mg/dL (9-23)
[2025-02-24 04:20] LABS: Albumin 1.9 g/dL (3.2-4.8); Bilirubin, Total 15.9 mg/dL (0.2-1.0)
[2025-02-24 04:24] LABS: BUN/Creatinine Ratio 40.2 (10.0-20.0); Total Protein 4.1 g/dL (5.7-8.2)
[2025-02-24 04:41] LABS: Anisocytosis Slight; Band Neutrophils % (manual) 5; Eosinophils % (manual) 3 (0-7); Lymphocytes % (manual) 10 (10.0-50.0); Metamyelocytes % 1; Monocytes % (manual) 2 (0-12)
[2025-02-24 04:42] LABS: Platelet Estimate Decreased; Polychromasia Slight
--- NOTE | 2025-02-24 06:09 | DVH ---
EXAM: XY CHEST PORTABLE Indication: mechanical ventilation Technique: Single frontal view of the chest was obtained Comparison: XY CHEST PORTABLE on DOS: 02/23/25, XY CHEST PORTABLE on DOS: 02/22/25, XY CHEST PORTABLE o n DOS: 02/21/25, XY CHEST PORTABLE on DOS: 02/20/25, XY CHEST PORTABLE on DOS: 02/19/25 FINDINGS: Lines and Tubes: Lines and tubes are unchanged compared to prior exam. Lungs: Mild pulmonary vascular congestion. Pleura: No effusion. No pneumothorax. Cardiomediastinal contours: Unremarkable Bones: No acute osseous abnormality. IMPRESSION: No significant change compared to prior exam.
[2025-02-24 08:05] LABS: Base Excess 0.8 mmol/L (-2.0-3.0)
[2025-02-24] MEDS: MEROPENEM 500MG IVPB 50 ML IV SCH (10:41)
[2025-02-24] MEDS: VANCOMYCIN 500mg/100mL 100 ML IV ONE (11:45)
[2025-02-24 12:39] LABS: Basophils # (auto) 0 10 ^3/uL (0-0.2); Eosinophils # (auto) 0.2 10 ^3/uL (0-0.8); Eosinophils % (auto) 3.1 % (0.0-7.0); Hematocrit 25.5 % (41.0-53.0); Hemoglobin 8.7 g/dL (13.5-17.5); Lymphocytes # (auto) 0.3 10 ^3/uL (0.4-5.4); Lymphocytes % (auto) 6.4 % (10.0-50.0); Mean Corpuscular Hemoglobin 32.3 pg (28.0-32.0); Mean Corpuscular Hgb Conc. 34.2 g/dL (32.0-36.0); Mean Corpuscular Volume 94.4 fL (80.0-100.0); Monocytes # (auto) 0.2 10 ^3/uL (0-1.3); Monocytes % (auto) 4.7 % (0.0-12.0); Neutrophils # (auto) 4.3 10 ^3/uL (1.6-8.6); Neutrophils % (auto) 84.8 % (37.0-80.0); Nucleated Red Blood Cells % 0.1 %; Platelet Count (auto) 84 10^3/uL (140-450); Red Cell Distribution Width 22.9 % (11.8-14.3); White Blood Cell 5.1 10^3/uL (4.4-10.8)
--- NOTE | 2025-02-24 13:14 | DVHPN2 ---
Progress Note Date Seen: February 24, 2025 Has the PT tested + for MRSA If YES, has PT been informed?: No Medical Necessity Reason Pt with a Central, PICC or Fol: Yes The following are medically ne: Central Line, Lopez Catheter Objective vital signs Vital Sign Date Time Temp Pulse Resp B/P (MAP) Pulse Ox O2 Delivery O2 Flow Rate FiO2 02/24/25 12:33 102/45 02/24/25 10:12 80 25 98 30 02/24/25 08:00 Mechanical Ventilator+ 02/24/25 04:00 99.0 99.0 Total Intake and Output 02/23/25 02/23/25 02/24/25 15:00 23:00 07:00 Intake Total 941.575 ml 600.726 ml 647.216 ml Output Total 1295 ml 1425 ml Balance 941.575 ml -694.274 ml -777.784 ml medications Current Medications Medications Dose Ordered Sig/Tanya Route Start Time Stop Time Status Last Admin Dose Admin Amino Acids 0 ml @ 0 mls/hr PER PHARMACY IV 02/15/25 14:00 Pantoprazole Sodium 40 mg BID IV 02/18/25 09:45 02/24/25 10:39 40 MG Vasopressin 20 units/Sodium Chloride 100 ml @ 9 mls/hr Q11H7M IV 02/19/25 01:15 02/23/25 07:46 9 MLS/HR Midazolam HCl 50 ml @ 1 mls/hr Q24H IV 02/19/25 08:30 02/24/25 12:33 10 MLS/HR Fentanyl Citrate 250 ml @ 2.5 mls/hr Q24H IV 02/19/25 08:30 02/24/25 03:33 15 MLS/HR Vancomycin HCl 0 ml @ 0 mls/hr UD IV 02/19/25 16:15 Insulin Glargine 20 units QAM SC 02/21/25 07:00 02/24/25 06:31 20 UNITS Octreotide Acetate 100 mcg TID SUBCUT 02/20/25 14:00 02/24/25 06:29 100 MCG Phenylephrine HCl 80 mg/Sodium Chloride 250 ml @ 7.5 mls/hr Q24H IV 02/20/25 18:00 02/22/25 04:32 24.375 MLS/HR Norepinephrine Bitartrate 32 mg/ Sodium Chloride 250 ml @ 0.938 mls/ hr Q24H IV 02/20/25 18:00 02/23/25 07:46 10.313 MLS/HR Acetaminophen 650 mg Q6HP PRN [place] 02/21/25 04:15 Micafungin Sodium 100 mg/Sodium Chloride 100 ml @ 100 mls/hr DAILY IV 02/21/25 10:00 02/24/25 10:41 100 MLS/HR Diagnostic Test (Pha) 1 strip Q6HR 02/21/25 12:00 02/24/25 05:29 1 STRIP Insulin Human Regular FOLLOW SLIDING SCALE Q6HR SC 02/21/25 12:00 02/24/25 05:29 8 UNITS Dextrose 50 ml UD IV 02/21/25 12:00 Fat Emulsion Intravenous 200 ml/Sodium Acetate 50 meq/Potassium Acetate 20 meq/ Potassium Phosphate 20 meq/ Calcium Gluconate 4.65 meq/ Magnesium Sulfate 10 meq/ Multivitamins 10 ml/Insulin Human Regular 35 units/ Amino Acids/ Dextrose 1,162.3955 ml @ 48 mls/hr [id number] IV 02/23/25 22:00 02/24/25 21:59 02/23/25 22:05 48 MLS/HR Meropenem 50 ml @ 17 mls/hr DAILY IV 02/24/25 10:00 02/24/25 10:41 17 MLS/HR Fat Emulsion Intravenous 200 ml/Sodium Acetate 50 meq/Potassium Chloride 40 meq/ Calcium Gluconate 2.3 meq/Magnesium Sulfate 8 meq/ Multivitamins 10 ml/Insulin Human Regular 38 units/ Amino Acids/ Dextrose 1,162.3262 ml @ 48 mls/hr [id number] IV 02/24/25 22:00 02/25/25 21:59 laboratory and microbiology Laboratory Tests 02/24/25 12:35 02/24/25 03:15 Test 02/24/25 03:15 Range/Units Serum Glucose 238 H 74-106 mg/dL Microbiology Date/Time Source Procedure Growth Status 02/21/25 22:50 Catheter Tip Other Aerobic Culture - Preliminary Resulted 02/21/25 16:10 Voided Urine Urine Culture - Preliminary Resulted 02/21/25 15:00 Blood Blood Culture - Preliminary NO GROWTH AFTER 48 HOURS OF INCUBATION. Resulted 02/21/25 11:45 Sputum Gram Stain - Final Resulted 02/21/25 11:45 Sputum Respiratory Culture - Preliminary Resulted Problem List/Assessment/Plan Problem List/Assessment/Plan INTUBATED HEMODYNAMICALLY LABILE ON VASOPRESSOR SUPPORT ABD SOFT LESS DISTENDED BM + MELANOTIC DRAIN 500 CC SEROSANGUINEOUS WBC WNL T BILI TRENDING DOWN KEEP NPO NG NURSE AND FAMILY AT BEDSIDE CONTINUE CLOSE OBSERVATION CONDITION REMAINS CRITICAL PT/PTT CONSIDER FFP INDICATED Plan discussed with: Other Dietary Evaluation Review Comments: 1) Advance to CCHO 60gm + Renal specific 60gm as medically feasible 2) Refer to CDE on DC 3) Continue current plan of care Expected Outcomes/Goals: To meet 75% estimated needs fu 2-3 days MARIANA PENA MD February 24, 2025 13:14
--- NOTE | 2025-02-24 13:54 | DVHPN2 ---
Changes from previous H/P or p: No Changes Objective Vitals Vital Signs Date Time Temp Pulse Resp B/P (MAP) Pulse Ox O2 Delivery O2 Flow Rate FiO2 02/24/25 13:45 75 22 109/44 (65) 98 02/24/25 12:19 30 02/24/25 12:00 Mechanical Ventilator+ 02/24/25 12:00 98.9 98.9 Intake/Output Intake and Output 02/24/25 07:00 Intake Total 2189.517 ml Output Total 2720 ml Balance -530.483 ml Intake Oral 0 ml IV Total 2189.517 ml Output Urine Total 1225 ml Stool Total 0 ml Gastric Drainage Total 0 ml Drainage Total 1495 ml # Bowel Movements 1 General Appearance: Alert, Oriented X3, Cooperative, No acute distress Lungs: Clear to auscultation Cardiovascular: Regular rate, Normal S1, Normal S2 Abdomen: Normal bowel sounds, Other (Distended and generalized tenderness) Extremities: Other (1+ edema bilaterally in the lower extremities) Medications Current Medications Medications Dose Ordered Sig/Tanya Route Start Time Stop Time Status Last Admin Dose Admin Amino Acids 0 ml @ 0 mls/hr PER PHARMACY IV 02/15/25 14:00 Pantoprazole Sodium 40 mg BID IV 02/18/25 09:45 02/24/25 10:39 40 MG Vasopressin 20 units/Sodium Chloride 100 ml @ 9 mls/hr Q11H7M IV 02/19/25 01:15 02/23/25 07:46 9 MLS/HR Midazolam HCl 50 ml @ 1 mls/hr Q24H IV 02/19/25 08:30 02/24/25 12:33 10 MLS/HR Fentanyl Citrate 250 ml @ 2.5 mls/hr Q24H IV 02/19/25 08:30 02/24/25 03:33 15 MLS/HR Vancomycin HCl 0 ml @ 0 mls/hr UD IV 02/19/25 16:15 Insulin Glargine 20 units QAM SC 02/21/25 07:00 02/24/25 06:31 20 UNITS Octreotide Acetate 100 mcg TID SUBCUT 02/20/25 14:00 02/24/25 06:29 100 MCG Phenylephrine HCl 80 mg/Sodium Chloride 250 ml @ 7.5 mls/hr Q24H IV 02/20/25 18:00 02/22/25 04:32 24.375 MLS/HR Norepinephrine Bitartrate 32 mg/ Sodium Chloride 250 ml @ 0.938 mls/ hr Q24H IV 02/20/25 18:00 02/23/25 07:46 10.313 MLS/HR Acetaminophen 650 mg Q6HP PRN NC 02/21/25 04:15 Micafungin Sodium 100 mg/Sodium Chloride 100 ml @ 100 mls/hr DAILY IV 02/21/25 10:00 02/24/25 10:41 100 MLS/HR Diagnostic Test (Pha) 1 strip Q6HR 02/21/25 12:00 02/24/25 13:28 1 STRIP Insulin Human Regular FOLLOW SLIDING SCALE Q6HR SC 02/21/25 12:00 02/24/25 13:28 8 UNITS Dextrose 50 ml UD IV 02/21/25 12:00 Fat Emulsion Intravenous 200 ml/Sodium Acetate 50 meq/Potassium Acetate 20 meq/ Potassium Phosphate 20 meq/ Calcium Gluconate 4.65 meq/ Magnesium Sulfate 10 meq/ Multivitamins 10 ml/Insulin Human Regular 35 units/ Amino Acids/ Dextrose 1,162.3955 ml @ 48 mls/hr [id number] IV 02/23/25 22:00 02/24/25 21:59 02/23/25 22:05 48 MLS/HR Meropenem 50 ml @ 17 mls/hr DAILY IV 02/24/25 10:00 02/24/25 10:41 17 MLS/HR Fat Emulsion Intravenous 200 ml/Sodium Acetate 50 meq/Potassium Chloride 40 meq/ Calcium Gluconate 2.3 meq/Magnesium Sulfate 8 meq/ Multivitamins 10 ml/Insulin Human Regular 38 units/ Amino Acids/ Dextrose 1,162.3262 ml @ 48 mls/hr [id number] IV 02/24/25 22:00 02/25/25 21:59 Laboratory Results Laboratory Tests 02/24/25 03:15 02/24/25 12:35 Chemistry Test 02/24/25 03:15 Albumin 1.9 g/dL (3.2-4.8) L Calcium Level 7.8 mg/dL (8.7-10.4) L Magnesium Level 2.1 mg/dL (1.6-2.6) Phosphorus Level 3.3 mg/dL (2.4-5.1) Total Protein 4.1 g/dL (5.7-8.2) L Coagulation Test 02/24/25 13:30 Prothrombin Time Pending Prothrombin Time INR Pending Activated Partial Thromboplast Time Pending LFT Test 02/24/25 03:15 Alanine Aminotransferase (ALT) 45 U/L (7-40) H Alkaline Phosphatase 107 U/L (46-116) Aspartate Amino Transferase (AST) 75 U/L (13-40) H Total Bilirubin 15.9 mg/dL (0.2-1.0) H Urinalysis Test 02/07/25 01:30 02/19/25 10:28 Urine Hyaline Casts Few /lpf (0 - 2) Urine Color Dark-yellow (Yellow) Urine Clarity Cloudy (Clear) H Urine pH 5.0 (5.0-9.0) Urine Specific [place] 1.026 (1.001-1.035) Urine Protein 1+ (Negative) H Urine Ketones Negative (Negative) Urine Blood 3+ /uL (Negative) H Urine Nitrite Negative (Negative) Urine Bilirubin 2+ (Negative) Urine Urobilinogen Normal mg/dL (Negative) Urine Leukocyte Esterase 2+ /uL (Negative) Urine RBC 237 /hpf (0 - 3) Urine Microscopic WBC 186 /HPF (0-3) H Urine Squamous Epithelial Cells Mod /hpf (<5) Urine Bacteria Few /hpf (None Seen) H Urine Mucus Few (None Seen) Urine Yeast (Budding) Many /hpf (None Seen) Urine Creatinine 114.42 mg/dL (30.0-125.0) Urine Protein/Creatinine Ratio 1.10 Urine Sodium < 10 mmol/L (40-220) L Urine Glucose Normal mg/dL (Normal) Urine Total Protein 126.2 mg/dL (1-14) H Blood Gas Results Test 02/24/25 07:50 Arterial Blood pH 7.392 (7.350-7.450) FiO2 % 30.0 Microbiology Microbiology Date/Time Source Procedure Growth Status 02/21/25 22:50 Catheter Tip Other Aerobic Culture - Preliminary Resulted 02/21/25 16:10 Voided Urine Urine Culture - Preliminary Resulted 02/21/25 15:00 Blood Blood Culture - Preliminary NO GROWTH AFTER 48 HOURS OF INCUBATION. Resulted 02/21/25 11:45 Sputum Gram Stain - Final Resulted 02/21/25 11:45 Sputum Respiratory Culture - Preliminary Resulted Assessment/Plan Assessment/Plan NEURO: Acute metabolic encephalopathy Hyperammonemia On mechanical ventilation RASS score: -3 CARDIOVASCULAR: Possible acute on chronic diastolic heart failure Paroxysmal atrial fibrillation with secondary hypercoagulable state, on amiodarone drip - Echo on 02/19 revealed lvef 65% .moderate LVH ,septal hypertrophy, normal RV function, RV enlarged mild left atrium enlarged - Blood culture is positive for fungus - Echo on 02/22/25 showed EF 70% and no valve abnormalities noted. 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 The distal small bowel loops are relatively nondilated. There is mesenteric edema and stranding as well as small bowel wall thickening. These findings are suggestive of at least a partial small bowel obstruction. Cirrhotic Morphology liver with sequela portal hypertension including extensive perisplenic varices. Small amount of ascites fluid which may be secondary to the underlying cirrhosis and/or small bowel obstruction. - Gastrografin small bowel series on 02/14/25 showed Contrast only noted in the stomach none in the small bowel. Persistent gaseous distention of the small bowel. - S/P exploratory laparotomy with small-bowel resection and anastomosis, day 5 - Ammonia dropped down to 50 but bilirubin is going up and right now 16 GENITOURINARY: Acute kidney injury, likely hemodynamic mediated etiology and possible ATN requiring hemodialysis Acute complicated cystitis Uremic encephalopathy Rule out urinary obstruction Anion gap metabolic acidosis likely due to lactic acidosis and kidney impairment - Patient underwent HD yesterday and 2.3L ultrafiltration removed - U/O in last 12 hours 650 mL - Nephrology recommended IV albumin b.i.d. - Discontinued IV albumin as patient seems volume overloaded. - Discontinued dopamine drip because of increased heart rate. - Patient is on IV vancomycin as per pharmacy, IV meropenem 500 mg q.12 hours and IV micafungin 100 mg daily. ENDOCRINE: Type 2 diabetes mellitus, hemoglobin A1c 7.2 on 01/30 - Moderate sliding scale of insulin - Lantus 20 unit at [facility] METABOLIC: Morbid obesity, BMI 38 kg / m2 Severe protein calorie malnutrition, albumin 2 HEME: Thrombocytopenia and coagulopathy likely due to cirrhosis INFECTIOUS DISEASE: Sepsis with septic shock secondary to bowel ischemia likely due to SBO versus mesenteric vein thrombosis Lactic acidosis secondary to cirrhosis and bowel ischemia - Blood culture demonstrated budding yeast and culture from abdominal abscess showed Enterococcus - Ordered new blood culture, urinary culture - Patient is on IV vancomycin as per pharmacy, IV meropenem 500 mg q.12 hours and IV micafungin 100 mg daily. DIET: NPO, TPN per pharmacy DVT prophylax: SCD GI prophylaxis: Protonix Bowel regimen: Code status: Full code LINES/DRAINS/ACCESS: ETT: Intubated on 02/18/25 IV access: Right femoral central line with triple-lumen placed on 02/21/25, left IJ Darrick catheter placed on 02/16/25 Drips: Norepinephrine, vasopressin, phenylephrine, Versed, fentanyl Lopez catheter: placed on 02/21/25 DISPOSITION: ICU Patient's status discussed with Daughter, RN Continue current management. Prognosis guard. Transfuse FFP x 1 today. Critical care time spent more than 37 minutes, including patient care, chart review, and updating the family. Excluding any procedures. Plan discussed with: Other (RN) Date of Service: February 24, 2025 Billing Provider: GRISELDA BLACK MD Common Visit Codes: 44347-[id number] CARE 30-74 MIN GRISELDA BLACK MD February 24, 2025 13:53
[2025-02-24 14:07] LABS: INR 1.8 (0.9-1.15); Partial Thromboplastin Time 68.7 SEC (24.5-34.5)
--- NOTE | 2025-02-24 15:22 | DVHPN2 ---
Progress Note - Dictate Date Seen: February 24, 2025 Has the PT tested + for MRSA If YES, has PT been informed?: No Medical Necessity Reason Pt with a Central, PICC or Fol: Yes The following are medically ne: Central Line, Lopez Catheter Subjective Remains intubated vital signs Vital Sign Date Time Temp Pulse Resp B/P (MAP) Pulse Ox O2 Delivery O2 Flow Rate FiO2 02/24/25 14:13 75 29 105/43 (63) 98 30 02/24/25 14:00 Mechanical Ventilator+ 02/24/25 12:00 98.9 98.9 Total Intake and Output 02/23/25 02/23/25 02/24/25 15:00 23:00 07:00 Intake Total 941.575 ml 600.726 ml 738.604 ml Output Total 1295 ml 1425 ml Balance 941.575 ml -694.274 ml -686.396 ml medications Current Medications Medications Dose Ordered Sig/Tanya Route Start Time Stop Time Status Last Admin Dose Admin Amino Acids 0 ml @ 0 mls/hr PER PHARMACY IV 02/15/25 14:00 Pantoprazole Sodium 40 mg BID IV 02/18/25 09:45 02/24/25 10:39 40 MG Vasopressin 20 units/Sodium Chloride 100 ml @ 9 mls/hr Q11H7M IV 02/19/25 01:15 02/23/25 07:46 9 MLS/HR Midazolam HCl 50 ml @ 1 mls/hr Q24H IV 02/19/25 08:30 02/24/25 12:33 10 MLS/HR Fentanyl Citrate 250 ml @ 2.5 mls/hr Q24H IV 02/19/25 08:30 02/24/25 03:33 15 MLS/HR Vancomycin HCl 0 ml @ 0 mls/hr UD IV 02/19/25 16:15 Insulin Glargine 20 units QAM SC 02/21/25 07:00 02/24/25 06:31 20 UNITS Octreotide Acetate 100 mcg TID SUBCUT 02/20/25 14:00 02/24/25 15:02 100 MCG Phenylephrine HCl 80 mg/Sodium Chloride 250 ml @ 7.5 mls/hr Q24H IV 02/20/25 18:00 02/22/25 04:32 24.375 MLS/HR Norepinephrine Bitartrate 32 mg/ Sodium Chloride 250 ml @ 0.938 mls/ hr Q24H IV 02/20/25 18:00 02/24/25 15:04 3.75 MLS/HR Acetaminophen 650 mg Q6HP PRN MD 02/21/25 04:15 Micafungin Sodium 100 mg/Sodium Chloride 100 ml @ 100 mls/hr DAILY IV 02/21/25 10:00 02/24/25 10:41 100 MLS/HR Diagnostic Test (Pha) 1 strip Q6HR 02/21/25 12:00 02/24/25 13:28 1 STRIP Insulin Human Regular FOLLOW SLIDING SCALE Q6HR SC 02/21/25 12:00 02/24/25 13:28 8 UNITS Dextrose 50 ml UD IV 02/21/25 12:00 Fat Emulsion Intravenous 200 ml/Sodium Acetate 50 meq/Potassium Acetate 20 meq/ Potassium Phosphate 20 meq/ Calcium Gluconate 4.65 meq/ Magnesium Sulfate 10 meq/ Multivitamins 10 ml/Insulin Human Regular 35 units/ Amino Acids/ Dextrose 1,162.3955 ml @ 48 mls/hr [id number] IV 02/23/25 22:00 02/24/25 21:59 02/23/25 22:05 48 MLS/HR Meropenem 50 ml @ 17 mls/hr DAILY IV 02/24/25 10:00 02/24/25 10:41 17 MLS/HR Fat Emulsion Intravenous 200 ml/Sodium Acetate 50 meq/Potassium Chloride 40 meq/ Calcium Gluconate 2.3 meq/Magnesium Sulfate 8 meq/ Multivitamins 10 ml/Insulin Human Regular 38 units/ Amino Acids/ Dextrose 1,162.3262 ml @ 48 mls/hr [id number] IV 02/24/25 22:00 02/25/25 21:59 objective Gen: Intubated lungs: Patient has rhonchi cvs: no rub abd: LISA drain in place ext: + edema laboratory and microbiology Laboratory Tests 02/24/25 12:35 02/24/25 03:15 Test 02/24/25 03:15 Range/Units Serum Glucose 238 H 74-106 mg/dL Assessment/Plan IMP: 1) Hemodynamically mediated JANET possible ischemic ATN 2) acute hypoxemic respiratory failure 3) septic shock 4) status post exploratory laparotomy REC: - urine volumes gradually increasing, possible recovery from acute kidney injury. - we will monitor off dialysis, and re-evaluate for renal replacement therapy daily. Dietary Evaluation Review Comments: 1) Advance to CCHO 60gm + Renal specific 60gm as medically feasible 2) Refer to CDE on DC 3) Continue current plan of care Expected Outcomes/Goals: To meet 75% estimated needs fu 2-3 days Plan discussed with: TANIA Nagel MD February 24, 2025 15:22
--- NOTE | 2025-02-24 17:35 | DVHPN2 ---
Progress Note - Dictate Date Seen: February 24, 2025 Has the PT tested + for MRSA If YES, has PT been informed?: No Medical Necessity Reason Pt with a Central, PICC or Fol: Yes The following are medically ne: Central Line, Lopez Catheter vital signs Vital Sign Date Time Temp Pulse Resp B/P (MAP) Pulse Ox O2 Delivery O2 Flow Rate FiO2 02/24/25 17:09 103/45 02/24/25 16:05 77 28 97 30 02/24/25 16:00 Mechanical Ventilator+ 02/24/25 12:00 98.9 98.9 Total Intake and Output 02/23/25 02/23/25 02/24/25 15:00 23:00 07:00 Intake Total 941.575 ml 600.726 ml 738.604 ml Output Total 1295 ml 1425 ml Balance 941.575 ml -694.274 ml -686.396 ml medications Current Medications Medications Dose Ordered Sig/Tanya Route Start Time Stop Time Status Last Admin Dose Admin Amino Acids 0 ml @ 0 mls/hr PER PHARMACY IV 02/15/25 14:00 Pantoprazole Sodium 40 mg BID IV 02/18/25 09:45 02/24/25 10:39 40 MG Vasopressin 20 units/Sodium Chloride 100 ml @ 9 mls/hr Q11H7M IV 02/19/25 01:15 02/23/25 07:46 9 MLS/HR Midazolam HCl 50 ml @ 1 mls/hr Q24H IV 02/19/25 08:30 02/24/25 17:08 12 MLS/HR Fentanyl Citrate 250 ml @ 2.5 mls/hr Q24H IV 02/19/25 08:30 02/24/25 17:09 27.5 MLS/HR Vancomycin HCl 0 ml @ 0 mls/hr UD IV 02/19/25 16:15 Insulin Glargine 20 units QAM SC 02/21/25 07:00 02/24/25 06:31 20 UNITS Octreotide Acetate 100 mcg TID SUBCUT 02/20/25 14:00 02/24/25 15:02 100 MCG Phenylephrine HCl 80 mg/Sodium Chloride 250 ml @ 7.5 mls/hr Q24H IV 02/20/25 18:00 02/22/25 04:32 24.375 MLS/HR Norepinephrine Bitartrate 32 mg/ Sodium Chloride 250 ml @ 0.938 mls/ hr Q24H IV 02/20/25 18:00 02/24/25 15:04 3.75 MLS/HR Acetaminophen 650 mg Q6HP PRN ND 02/21/25 04:15 Micafungin Sodium 100 mg/Sodium Chloride 100 ml @ 100 mls/hr DAILY IV 02/21/25 10:00 02/24/25 10:41 100 MLS/HR Diagnostic Test (Pha) 1 strip Q6HR 02/21/25 12:00 02/24/25 13:28 1 STRIP Insulin Human Regular FOLLOW SLIDING SCALE Q6HR SC 02/21/25 12:00 02/24/25 13:28 8 UNITS Dextrose 50 ml UD IV 02/21/25 12:00 Fat Emulsion Intravenous 200 ml/Sodium Acetate 50 meq/Potassium Acetate 20 meq/ Potassium Phosphate 20 meq/ Calcium Gluconate 4.65 meq/ Magnesium Sulfate 10 meq/ Multivitamins 10 ml/Insulin Human Regular 35 units/ Amino Acids/ Dextrose 1,162.3955 ml @ 48 mls/hr [id number] IV 02/23/25 22:00 02/24/25 21:59 02/23/25 22:05 48 MLS/HR Meropenem 50 ml @ 17 mls/hr DAILY IV 02/24/25 10:00 02/24/25 10:41 17 MLS/HR Fat Emulsion Intravenous 200 ml/Sodium Acetate 50 meq/Potassium Chloride 40 meq/ Calcium Gluconate 2.3 meq/Magnesium Sulfate 8 meq/ Multivitamins 10 ml/Insulin Human Regular 38 units/ Amino Acids/ Dextrose 1,162.3262 ml @ 48 mls/hr [id number] IV 02/24/25 22:00 02/25/25 21:59 laboratory and microbiology Laboratory Tests 02/24/25 12:35 02/24/25 03:15 Test 02/24/25 03:15 Range/Units Serum Glucose 238 H 74-106 mg/dL Assessment/Plan Impression Acute hypoxemic respiratory failure Perforated bowel Septic shock ESRD on HD Patient seen and examined in ICU Events On mechanical ventilation S/p intubation PEEP 5, FiO2 80% Remains on pressors for hemodynamic support S/p ex lap LISA drains in place Labs and imaging reviewed ABG reviewed Management Vent support Titrate to maintain sats 90% or above Sedation for vent synchrony Continue antibiotics F/u cultures Bronchodilators Monitor renal function HD as per nephrology Management deferred Monitor electrolytes Supplement as needed Pressors as needed for hemodynamic support To maintain a mean arterial pressure of 65 mmHg DVT prophylaxis Critical care time 35 minutes Dietary Evaluation Review Comments: 1) Advance to CCHO 60gm + Renal specific 60gm as medically feasible 2) Refer to CDE on DC 3) Continue current plan of care Expected Outcomes/Goals: To meet 75% estimated needs fu 2-3 days Plan discussed with: Other (Rn) KOBY WALLACE MD February 24, 2025 17:35
[2025-02-24] MEDS: TPN PER PHARMACY IV NR (21:22)
[2025-02-25] VITALS (106 sets, daily range): BP systolic 75–179; BP diastolic 36–76; PULSE 58–82; RESP 13–32; TEMP 98.2–100.6; O2SAT 96–100
[2025-02-25 04:00] LABS: Hematocrit 26.4 % (41.0-53.0); Mean Corpuscular Volume 94.1 fL (80.0-100.0); Platelet Count (auto) 109 10^3/uL (140-450); Red Blood Cells 2.81 10^6/uL (4.5-5.90); White Blood Cell 6.5 10^3/uL (4.4-10.8)
[2025-02-25 04:02] LABS: Alkaline Phosphatase 106 U/L (46-116); Anion Gap 13 (5-15); Carbon Dioxide 23 mmol/L (20-31); Chloride 105 mmol/L (98-107); Magnesium 2.1 mg/dL (1.6-2.6); Phosphorus 3.8 mg/dL (2.4-5.1); Potassium 3.8 mmol/L (3.5-5.1); Sodium 141 mmol/L (136-145)
[2025-02-25 04:09] LABS: BUN/Creatinine Ratio 48.5 (10.0-20.0)
[2025-02-25 04:18] LABS: Red Cell Distribution Width 22.6 % (11.8-14.3)
[2025-02-25 04:19] LABS: Basophils % (manual) 0 (0.0-2.0); Blast Cells 0; Metamyelocytes % 0; Myelocytes % 0; Promyelocytes % 0; Reactive Lymphocytes 0
[2025-02-25 04:33] LABS: Alanine Aminotransferase 44 U/L (7-40); Albumin 1.9 g/dL (3.2-4.8); Aspartate Aminotransferase 88 U/L (13-40); Bilirubin, Total 14.9 mg/dL (0.2-1.0); Calcium 7.3 mg/dL (8.7-10.4); Glucose 183 mg/dL (74-106); Total Protein 4.2 g/dL (5.7-8.2)
[2025-02-25 04:34] LABS: Blood Urea Nitrogen 114 mg/dL (9-23)
[2025-02-25 06:08] LABS: Band Neutrophils % (manual) 12; Monocytes % (manual) 6 (0-12)
[2025-02-25 06:09] LABS: Anisocytosis Moderate; Eosinophils % (manual) 5 (0-7); Lymphocytes % (manual) 10 (10.0-50.0); Macrocytosis Slight; Platelet Estimate Decreased
[2025-02-25 06:10] LABS: Tear Drop Cells FEW
--- NOTE | 2025-02-25 06:52 | DVH ---
INDICATION: VENTED TECHNIQUE: Single frontal view of the chest was obtained COMPARISON: XY CHEST PORTABLE on DOS: 02/24/25, XY CHEST PORTABLE on DOS: 02/23/25, XY CHEST PORTABLE o n DOS: 02/22/25, XY CHEST PORTABLE on DOS: 02/21/25, XY CHEST PORTABLE on DOS: 02/20/25, XY CHEST PORTAB LE on DOS: 02/24/25 FINDINGS: Lines and Tubes: Lines and tubes are unchanged compared to prior exam. Lungs: Mild pulmonary vascular congestion. Pleura: No effusion. No pneumothorax. Cardiomediastinal contours: Unremarkable Bones: No acute osseous abnormality. IMPRESSION: No significant change compared to prior exam.
[2025-02-25] MEDS: ACETAMINOPHEN 650 MG RECT SUPP PR PRN (07:45)
[2025-02-25 08:31] LABS: Base Excess -0.1 mmol/L (-2.0-3.0)
[2025-02-25] MEDS: PROPOFOL 100 ML IV SCH (09:56)
--- NOTE | 2025-02-25 09:58 | DVHPN2 ---
Progress Note - Dictate Date Seen: February 25, 2025 Has the PT tested + for MRSA If YES, has PT been informed?: No Medical Necessity Reason Pt with a Central, PICC or Fol: Yes The following are medically ne: Central Line, Lopez Catheter vital signs Vital Sign Date Time Temp Pulse Resp B/P (MAP) Pulse Ox O2 Delivery O2 Flow Rate FiO2 02/25/25 09:30 99.0 02/25/25 07:15 79 19 133/55 (81) 98 115/47 (69) 02/25/25 06:00 30 02/25/25 06:00 Mechanical Ventilator+ Total Intake and Output 02/24/25 02/24/25 02/25/25 15:00 23:00 07:00 Intake Total 1007.62 ml 867.906 ml 739.835 ml Output Total 1670 ml 1600 ml Balance 1007.62 ml -802.094 ml -860.165 ml medications Current Medications Medications Dose Ordered Sig/Tanya Route Start Time Stop Time Status Last Admin Dose Admin Amino Acids 0 ml @ 0 mls/hr PER PHARMACY IV 02/15/25 14:00 Pantoprazole Sodium 40 mg BID IV 02/18/25 09:45 02/25/25 09:56 40 MG Vasopressin 20 units/Sodium Chloride 100 ml @ 9 mls/hr Q11H7M IV 02/19/25 01:15 02/23/25 07:46 9 MLS/HR Midazolam HCl 50 ml @ 1 mls/hr Q24H IV 02/19/25 08:30 02/25/25 06:23 12 MLS/HR Fentanyl Citrate 250 ml @ 2.5 mls/hr Q24H IV 02/19/25 08:30 02/25/25 02:02 27.5 MLS/HR Vancomycin HCl 0 ml @ 0 mls/hr UD IV 02/19/25 16:15 Insulin Glargine 20 units QAM SC 02/21/25 07:00 02/25/25 06:28 20 UNITS Octreotide Acetate 100 mcg TID SUBCUT 02/20/25 14:00 02/25/25 05:55 100 MCG Phenylephrine HCl 80 mg/Sodium Chloride 250 ml @ 7.5 mls/hr Q24H IV 02/20/25 18:00 02/22/25 04:32 24.375 MLS/HR Norepinephrine Bitartrate 32 mg/ Sodium Chloride 250 ml @ 0.938 mls/ hr Q24H IV 02/20/25 18:00 02/24/25 15:04 3.75 MLS/HR Acetaminophen 650 mg Q6HP PRN NC 02/21/25 04:15 02/25/25 07:45 650 MG Micafungin Sodium 100 mg/Sodium Chloride 100 ml @ 100 mls/hr DAILY IV 02/21/25 10:00 02/24/25 10:41 100 MLS/HR Diagnostic Test (Pha) 1 strip Q6HR 02/21/25 12:00 02/25/25 05:44 1 STRIP Insulin Human Regular FOLLOW SLIDING SCALE Q6HR SC 02/21/25 12:00 02/25/25 05:48 4 UNITS Dextrose 50 ml UD IV 02/21/25 12:00 Meropenem 50 ml @ 17 mls/hr DAILY IV 02/24/25 10:00 02/24/25 10:41 17 MLS/HR Fat Emulsion Intravenous 200 ml/Sodium Acetate 50 meq/Potassium Chloride 40 meq/ Calcium Gluconate 2.3 meq/Magnesium Sulfate 8 meq/ Multivitamins 10 ml/Insulin Human Regular 38 units/ Amino Acids/ Dextrose 1,162.3262 ml @ 48 mls/hr [id number] IV 02/24/25 22:00 02/25/25 21:59 02/24/25 21:22 48 MLS/HR Propofol 100 ml @ 3.345 mls/ hr Q24H IV 02/25/25 09:00 02/25/25 09:56 3.345 MLS/HR laboratory and microbiology Laboratory Tests 02/25/25 03:09 Test 02/25/25 03:09 Range/Units Serum Glucose 183 H 74-106 mg/dL Assessment/Plan Impression Acute hypoxemic respiratory failure Perforated bowel Septic shock ESRD on HD Patient seen and examined in ICU Events On mechanical ventilation S/p intubation PEEP 5, FiO2 80% Hemodynamics improving Due for HD today S/p ex lap LISA drains in place Labs and imaging reviewed ABG reviewed Management Vent support Titrate to maintain sats 90% or above Sedation holiday after HD If patient follows commands, proceed to weaning trial Pressure support 7/5, extubate when ready Continue antibiotics F/u cultures Bronchodilators Monitor renal function HD as per nephrology Management deferred Monitor electrolytes Supplement as needed Pressors as needed for hemodynamic support To maintain a mean arterial pressure of 65 mmHg DVT prophylaxis Critical care time 35 minutes Dietary Evaluation Review Comments: 1) Advance to CCHO 60gm + Renal specific 60gm as medically feasible 2) Refer to CDE on DC 3) Continue current plan of care Expected Outcomes/Goals: To meet 75% estimated needs fu 2-3 days Plan discussed with: Other (Rn) KOBY WALLACE MD February 25, 2025 09:58
[2025-02-25] MEDS: VANCOMYCIN 500mg/100mL 100 ML IV ONE (10:15)
--- NOTE | 2025-02-25 10:26 | DVHPN2 ---
Progress Note Date Seen: February 25, 2025 Has the PT tested + for MRSA If YES, has PT been informed?: No Medical Necessity Reason Pt with a Central, PICC or Fol: Yes The following are medically ne: Central Line, Lopez Catheter Objective vital signs Vital Sign Date Time Temp Pulse Resp B/P (MAP) Pulse Ox O2 Delivery O2 Flow Rate FiO2 02/25/25 09:57 78 30 117/49 (71) 98 30 02/25/25 09:30 99.0 02/25/25 06:00 Mechanical Ventilator+ Total Intake and Output 02/24/25 02/24/25 02/25/25 15:00 23:00 07:00 Intake Total 1007.62 ml 867.906 ml 739.835 ml Output Total 1670 ml 1600 ml Balance 1007.62 ml -802.094 ml -860.165 ml medications Current Medications Medications Dose Ordered Sig/Tanya Route Start Time Stop Time Status Last Admin Dose Admin Amino Acids 0 ml @ 0 mls/hr PER PHARMACY IV 02/15/25 14:00 Pantoprazole Sodium 40 mg BID IV 02/18/25 09:45 02/25/25 09:56 40 MG Vasopressin 20 units/Sodium Chloride 100 ml @ 9 mls/hr Q11H7M IV 02/19/25 01:15 02/23/25 07:46 9 MLS/HR Midazolam HCl 50 ml @ 1 mls/hr Q24H IV 02/19/25 08:30 02/25/25 06:23 12 MLS/HR Fentanyl Citrate 250 ml @ 2.5 mls/hr Q24H IV 02/19/25 08:30 02/25/25 02:02 27.5 MLS/HR Vancomycin HCl 0 ml @ 0 mls/hr UD IV 02/19/25 16:15 Insulin Glargine 20 units QAM SC 02/21/25 07:00 02/25/25 06:28 20 UNITS Octreotide Acetate 100 mcg TID SUBCUT 02/20/25 14:00 02/25/25 05:55 100 MCG Phenylephrine HCl 80 mg/Sodium Chloride 250 ml @ 7.5 mls/hr Q24H IV 02/20/25 18:00 02/22/25 04:32 24.375 MLS/HR Norepinephrine Bitartrate 32 mg/ Sodium Chloride 250 ml @ 0.938 mls/ hr Q24H IV 02/20/25 18:00 02/24/25 15:04 3.75 MLS/HR Acetaminophen 650 mg Q6HP PRN AL 02/21/25 04:15 02/25/25 07:45 650 MG Micafungin Sodium 100 mg/Sodium Chloride 100 ml @ 100 mls/hr DAILY IV 02/21/25 10:00 02/24/25 10:41 100 MLS/HR Diagnostic Test (Pha) 1 strip Q6HR 02/21/25 12:00 02/25/25 05:44 1 STRIP Insulin Human Regular FOLLOW SLIDING SCALE Q6HR SC 02/21/25 12:00 02/25/25 05:48 4 UNITS Dextrose 50 ml UD IV 02/21/25 12:00 Meropenem 50 ml @ 17 mls/hr DAILY IV 02/24/25 10:00 02/24/25 10:41 17 MLS/HR Fat Emulsion Intravenous 200 ml/Sodium Acetate 50 meq/Potassium Chloride 40 meq/ Calcium Gluconate 2.3 meq/Magnesium Sulfate 8 meq/ Multivitamins 10 ml/Insulin Human Regular 38 units/ Amino Acids/ Dextrose 1,162.3262 ml @ 48 mls/hr [id number] IV 02/24/25 22:00 02/25/25 21:59 02/24/25 21:22 48 MLS/HR Propofol 100 ml @ 3.345 mls/ hr Q24H IV 02/25/25 09:00 02/25/25 09:56 3.345 MLS/HR laboratory and microbiology Laboratory Tests 02/25/25 03:09 Test 02/25/25 03:09 Range/Units Serum Glucose 183 H 74-106 mg/dL Microbiology Date/Time Source Procedure Growth Status 02/21/25 22:50 Catheter Tip Other Aerobic Culture - Preliminary Resulted 02/21/25 16:10 Voided Urine Urine Culture - Preliminary Resulted 02/21/25 15:00 Blood Blood Culture - Preliminary NO GROWTH AFTER 72 HOURS OF INCUBATION. Resulted 02/21/25 11:45 Sputum Gram Stain - Final Resulted 02/21/25 11:45 Sputum Respiratory Culture - Preliminary Resulted Problem List/Assessment/Plan Problem List/Assessment/Plan INTUBATED HEMODYNAMICALLY LABILE ON VASOPRESSOR SUPPORT ABD SOFT LESS DISTENDED NO BM DRAIN 300 CC SEROSANGUINEOUS WBC WNL T BILI TRENDING DOWN KEEP NPO NG NURSE AND FAMILY AT BEDSIDE CONTINUE CLOSE OBSERVATION CONDITION REMAINS CRITICAL PT/PTT CONSIDER FFP INDICATED Plan discussed with: Other My Orders My Orders Orders - MARIANA PENA MD Procedure Category Date Status Time Prothrombin Time W/ LAB 02/25/25 Logged INR 10:21 Dietary Evaluation Review Comments: 1) Advance to CCHO 60gm + Renal specific 60gm as medically feasible 2) Refer to CDE on DC 3) Continue current plan of care Expected Outcomes/Goals: To meet 75% estimated needs fu 2-3 days MARIANA PENA MD February 25, 2025 10:26
[2025-02-25 12:37] LABS: INR 1.69 (0.9-1.15)
--- NOTE | 2025-02-25 13:11 | DVHPN2 ---
Subjective The patient is seen and examined at bedside. Remained intubated. Reviewed: Care Plan, H&P, Labs, Medications, Previous Orders, Radiology Changes from previous H/P or p: No Changes Objective Vitals Vital Signs Date Time Temp Pulse Resp B/P (MAP) Pulse Ox O2 Delivery O2 Flow Rate FiO2 02/25/25 12:03 70 24 129/54 (79) 98 30 02/25/25 09:30 99.0 02/25/25 06:00 Mechanical Ventilator+ Intake/Output Intake and Output 02/25/25 07:00 Intake Total 2725.146 ml Output Total 3270 ml Balance -544.854 ml Intake Oral 0 ml IV Total 2725.146 ml Output Urine Total 1500 ml Gastric Drainage Total 300 ml Drainage Total 1470 ml General Appearance: Other (Intubated, on vent, unable to exam) Lungs: Clear to auscultation Cardiovascular: Regular rate, Normal S1, Normal S2 Abdomen: Normal bowel sounds, Other (Distended and generalized tenderness) Extremities: Other (1+ edema bilaterally in the lower extremities) Medications Current Medications Medications Dose Ordered Sig/Tanya Route Start Time Stop Time Status Last Admin Dose Admin Amino Acids 0 ml @ 0 mls/hr PER PHARMACY IV 02/15/25 14:00 Pantoprazole Sodium 40 mg BID IV 02/18/25 09:45 02/25/25 09:56 40 MG Vasopressin 20 units/Sodium Chloride 100 ml @ 9 mls/hr Q11H7M IV 02/19/25 01:15 02/23/25 07:46 9 MLS/HR Midazolam HCl 50 ml @ 1 mls/hr Q24H IV 02/19/25 08:30 02/25/25 11:09 10 MLS/HR Fentanyl Citrate 250 ml @ 2.5 mls/hr Q24H IV 02/19/25 08:30 02/25/25 11:02 27.5 MLS/HR Vancomycin HCl 0 ml @ 0 mls/hr UD IV 02/19/25 16:15 Insulin Glargine 20 units QAM SC 02/21/25 07:00 02/25/25 06:28 20 UNITS Octreotide Acetate 100 mcg TID SUBCUT 02/20/25 14:00 02/25/25 05:55 100 MCG Phenylephrine HCl 80 mg/Sodium Chloride 250 ml @ 7.5 mls/hr Q24H IV 02/20/25 18:00 02/22/25 04:32 24.375 MLS/HR Norepinephrine Bitartrate 32 mg/ Sodium Chloride 250 ml @ 0.938 mls/ hr Q24H IV 02/20/25 18:00 02/24/25 15:04 3.75 MLS/HR Acetaminophen 650 mg Q6HP PRN SD 02/21/25 04:15 02/25/25 07:45 650 MG Micafungin Sodium 100 mg/Sodium Chloride 100 ml @ 100 mls/hr DAILY IV 02/21/25 10:00 02/25/25 11:52 100 MLS/HR Diagnostic Test (Pha) 1 strip Q6HR 02/21/25 12:00 02/25/25 12:10 1 STRIP Insulin Human Regular FOLLOW SLIDING SCALE Q6HR SC 02/21/25 12:00 02/25/25 12:20 4 UNITS Dextrose 50 ml UD IV 02/21/25 12:00 Meropenem 50 ml @ 17 mls/hr DAILY IV 02/24/25 10:00 02/25/25 13:02 17 MLS/HR Fat Emulsion Intravenous 200 ml/Sodium Acetate 50 meq/Potassium Chloride 40 meq/ Calcium Gluconate 2.3 meq/Magnesium Sulfate 8 meq/ Multivitamins 10 ml/Insulin Human Regular 38 units/ Amino Acids/ Dextrose 1,162.3262 ml @ 48 mls/hr [id number] IV 02/24/25 22:00 02/25/25 21:59 02/24/25 21:22 48 MLS/HR Propofol 100 ml @ 3.345 mls/ hr Q24H IV 02/25/25 09:00 02/25/25 09:56 3.345 MLS/HR Fat Emulsion Intravenous 200 ml/Sodium Chloride 40 meq/ Potassium Chloride 60 meq/ Calcium Gluconate 4.65 meq/ Magnesium Sulfate 12 meq/ Multivitamins 10 ml/Insulin Human Regular 42 units/ Amino Acids/ Dextrose 1,213.42 ml @ 51 mls/hr [id number] IV 02/25/25 22:00 02/26/25 21:59 Laboratory Results Laboratory Tests 02/25/25 03:09 Chemistry Test 02/25/25 03:09 Albumin 1.9 g/dL (3.2-4.8) L Calcium Level 7.3 mg/dL (8.7-10.4) L Magnesium Level 2.1 mg/dL (1.6-2.6) Phosphorus Level 3.8 mg/dL (2.4-5.1) Total Protein 4.2 g/dL (5.7-8.2) L Coagulation Test 02/24/25 13:30 02/25/25 11:21 Prothrombin Time 18.0 sec (9.3-11.8) H 17.0 sec (9.3-11.8) H Prothrombin Time INR 1.80 (0.9-1.15) H 1.69 (0.9-1.15) H Activated Partial Thromboplast Time 68.7 SEC (24.5-34.5) H LFT Test 02/25/25 03:09 Alanine Aminotransferase (ALT) 44 U/L (7-40) H Alkaline Phosphatase 106 U/L (46-116) Aspartate Amino Transferase (AST) 88 U/L (13-40) H Total Bilirubin 14.9 mg/dL (0.2-1.0) H Urinalysis Test 02/07/25 01:30 02/19/25 10:28 Urine Hyaline Casts Few /lpf (0 - 2) Urine Color Dark-yellow (Yellow) Urine Clarity Cloudy (Clear) H Urine pH 5.0 (5.0-9.0) Urine Specific [place] 1.026 (1.001-1.035) Urine Protein 1+ (Negative) H Urine Ketones Negative (Negative) Urine Blood 3+ /uL (Negative) H Urine Nitrite Negative (Negative) Urine Bilirubin 2+ (Negative) Urine Urobilinogen Normal mg/dL (Negative) Urine Leukocyte Esterase 2+ /uL (Negative) Urine RBC 237 /hpf (0 - 3) Urine Microscopic WBC 186 /HPF (0-3) H Urine Squamous Epithelial Cells Mod /hpf (<5) Urine Bacteria Few /hpf (None Seen) H Urine Mucus Few (None Seen) Urine Yeast (Budding) Many /hpf (None Seen) Urine Creatinine 114.42 mg/dL (30.0-125.0) Urine Protein/Creatinine Ratio 1.10 Urine Sodium < 10 mmol/L (40-220) L Urine Glucose Normal mg/dL (Normal) Urine Total Protein 126.2 mg/dL (1-14) H Blood Gas Results Test 02/25/25 08:05 Arterial Blood pH 7.499 (7.350-7.450) FiO2 % 30.0 Microbiology Microbiology Date/Time Source Procedure Growth Status 02/21/25 22:50 Catheter Tip Other Aerobic Culture - Preliminary Resulted 02/21/25 16:10 Voided Urine Urine Culture - Preliminary Resulted 02/21/25 15:00 Blood Blood Culture - Preliminary NO GROWTH AFTER 72 HOURS OF INCUBATION. Resulted 02/21/25 11:45 Sputum Gram Stain - Final Resulted 02/21/25 11:45 Sputum Respiratory Culture - Preliminary Resulted Labs and/or images reviewed: Labs reviewed by me Assessment/Plan Assessment/Plan NEURO: Acute metabolic encephalopathy Hyperammonemia On mechanical ventilation RASS score: -3 CARDIOVASCULAR: Possible acute on chronic diastolic heart failure Paroxysmal atrial fibrillation with secondary hypercoagulable state, on amiodarone drip - Echo on 02/19 revealed lvef 65% .moderate LVH ,septal hypertrophy, normal RV function, RV enlarged mild left atrium enlarged - Blood culture is positive for fungus - Echo on 02/22/25 showed EF 70% and no valve abnormalities noted. 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 The distal small bowel loops are relatively nondilated. There is mesenteric edema and stranding as well as small bowel wall thickening. These findings are suggestive of at least a partial small bowel obstruction. Cirrhotic Morphology liver with sequela portal hypertension including extensive perisplenic varices. Small amount of ascites fluid which may be secondary to the underlying cirrhosis and/or small bowel obstruction. - Gastrografin small bowel series on 02/14/25 showed Contrast only noted in the stomach none in the small bowel. Persistent gaseous distention of the small bowel. - S/P exploratory laparotomy with small-bowel resection and anastomosis, day 5 - Ammonia dropped down to 50 but bilirubin is going up and right now 16 GENITOURINARY: Acute kidney injury, likely hemodynamic mediated etiology and possible ATN requiring hemodialysis Acute complicated cystitis Uremic encephalopathy Rule out urinary obstruction Anion gap metabolic acidosis likely due to lactic acidosis and kidney impairment - Patient underwent HD yesterday and 2.3L ultrafiltration removed - U/O in last 12 hours 650 mL - Nephrology recommended IV albumin b.i.d. - Discontinued IV albumin as patient seems volume overloaded. - Discontinued dopamine drip because of increased heart rate. - Patient is on IV vancomycin as per pharmacy, IV meropenem 500 mg q.12 hours and IV micafungin 100 mg daily. ENDOCRINE: Type 2 diabetes mellitus, hemoglobin A1c 7.2 on 01/30 - Moderate sliding scale of insulin - Lantus [facility] unit at [facility] METABOLIC: Morbid obesity, BMI 38 kg / m2 Severe protein calorie malnutrition, albumin 2 HEME: Thrombocytopenia and coagulopathy likely due to cirrhosis INFECTIOUS DISEASE: Sepsis with septic shock secondary to bowel ischemia likely due to SBO versus mesenteric vein thrombosis Lactic acidosis secondary to cirrhosis and bowel ischemia - Blood culture demonstrated budding yeast and culture from abdominal abscess showed Enterococcus - Ordered new blood culture, urinary culture - Patient is on IV vancomycin as per pharmacy, IV meropenem 500 mg q.12 hours and IV micafungin 100 mg daily. DIET: NPO, TPN per pharmacy DVT prophylax: SCD GI prophylaxis: Protonix Bowel regimen: Code status: Full code LINES/DRAINS/ACCESS: ETT: Intubated on 02/18/25 IV access: Right femoral central line with triple-lumen placed on 0 02/21/25, left IJ Darrick catheter placed on 0 02/16/25 Drips: Norepinephrine, vasopressin, phenylephrine, Versed, fentanyl Lopez catheter: placed on 02/21/25 DISPOSITION: ICU Patient's status discussed with bulmaro, RN Continue current management. Prognosis guard. Transfuse FFP x 1 today. Critical care time spent more than 37 minutes, including patient care, chart review, and updating the family. Excluding any procedures. This medical document was created using an electronic medical record system with [employer] direct computerized dictation system. Although this document has been carefully reviewed, there may still be some phonetic and typographical errors. These areas are purely typographical due to imperfections of the software programs, and do not reflect any compromise in the patient's medical care. Plan discussed with: Bulmaro My Orders Orders - GRISELDA BALCK MD Procedure Category Date Status Time Chest Portable XY 02/25/25 Resulted 04:00 Date of Service: February 25, 2025 Billing Provider: GRISELDA BLACK MD Common Visit Codes: [id number] INP/OBS CARE(HIGH) GRISELDA BLACK MD February 25, 2025 13:11
--- NOTE | 2025-02-25 14:57 | DVHPN2 ---
Progress Note - Dictate Date Seen: February 25, 2025 Has the PT tested + for MRSA If YES, has PT been informed?: No Medical Necessity Reason Pt with a Central, PICC or Fol: Yes The following are medically ne: Central Line, Lopez Catheter Subjective Patient's son at bedside vital signs Vital Sign Date Time Temp Pulse Resp B/P (MAP) Pulse Ox O2 Delivery O2 Flow Rate FiO2 02/25/25 14:15 66 22 123/54 (77) 98 108/49 (68) 02/25/25 14:12 30 02/25/25 13:00 98.4 98.4 02/25/25 08:00 Mechanical Ventilator+ Total Intake and Output 02/24/25 02/24/25 02/25/25 15:00 23:00 07:00 Intake Total 1007.62 ml 867.906 ml 849.620 ml Output Total 1670 ml 1600 ml Balance 1007.62 ml -802.094 ml -750.380 ml medications Current Medications Medications Dose Ordered Sig/Tanya Route Start Time Stop Time Status Last Admin Dose Admin Amino Acids 0 ml @ 0 mls/hr PER PHARMACY IV 02/15/25 14:00 Pantoprazole Sodium 40 mg BID IV 02/18/25 09:45 02/25/25 09:56 40 MG Vasopressin 20 units/Sodium Chloride 100 ml @ 9 mls/hr Q11H7M IV 02/19/25 01:15 02/23/25 07:46 9 MLS/HR Midazolam HCl 50 ml @ 1 mls/hr Q24H IV 02/19/25 08:30 02/25/25 11:09 10 MLS/HR Fentanyl Citrate 250 ml @ 2.5 mls/hr Q24H IV 02/19/25 08:30 02/25/25 11:02 27.5 MLS/HR Vancomycin HCl 0 ml @ 0 mls/hr UD IV 02/19/25 16:15 Insulin Glargine 20 units QAM SC 02/21/25 07:00 02/25/25 06:28 20 UNITS Octreotide Acetate 100 mcg TID SUBCUT 02/20/25 14:00 02/25/25 13:40 100 MCG Phenylephrine HCl 80 mg/Sodium Chloride 250 ml @ 7.5 mls/hr Q24H IV 02/20/25 18:00 02/22/25 04:32 24.375 MLS/HR Norepinephrine Bitartrate 32 mg/ Sodium Chloride 250 ml @ 0.938 mls/ hr Q24H IV 02/20/25 18:00 02/24/25 15:04 3.75 MLS/HR Acetaminophen 650 mg Q6HP PRN SD 02/21/25 04:15 02/25/25 07:45 650 MG Micafungin Sodium 100 mg/Sodium Chloride 100 ml @ 100 mls/hr DAILY IV 02/21/25 10:00 02/25/25 11:52 100 MLS/HR Diagnostic Test (Pha) 1 strip Q6HR 02/21/25 12:00 02/25/25 12:10 1 STRIP Insulin Human Regular FOLLOW SLIDING SCALE Q6HR SC 02/21/25 12:00 02/25/25 12:20 4 UNITS Dextrose 50 ml UD IV 02/21/25 12:00 Meropenem 50 ml @ 17 mls/hr DAILY IV 02/24/25 10:00 02/25/25 13:02 17 MLS/HR Fat Emulsion Intravenous 200 ml/Sodium Acetate 50 meq/Potassium Chloride 40 meq/ Calcium Gluconate 2.3 meq/Magnesium Sulfate 8 meq/ Multivitamins 10 ml/Insulin Human Regular 38 units/ Amino Acids/ Dextrose 1,162.3262 ml @ 48 mls/hr [id number] IV 02/24/25 22:00 02/25/25 21:59 02/24/25 21:22 48 MLS/HR Propofol 100 ml @ 3.345 mls/ hr Q24H IV 02/25/25 09:00 02/25/25 09:56 3.345 MLS/HR Fat Emulsion Intravenous 200 ml/Sodium Chloride 40 meq/ Potassium Chloride 60 meq/ Calcium Gluconate 4.65 meq/ Magnesium Sulfate 12 meq/ Multivitamins 10 ml/Insulin Human Regular 42 units/ Amino Acids/ Dextrose 1,213.42 ml @ 51 mls/hr [id number] IV 02/25/25 22:00 02/26/25 21:59 objective Gen: Intubated lungs: Patient has rhonchi cvs: no rub abd: LISA drain in place ext: + edema laboratory and microbiology Laboratory Tests 02/25/25 03:09 Test 02/25/25 03:09 Range/Units Serum Glucose 183 H 74-106 mg/dL Assessment/Plan IMP: 1) Hemodynamically mediated JANET possible ischemic ATN - improving 2) acute hypoxemic respiratory failure 3) septic shock 4) status post exploratory laparotomy REC: - Resolving acute kidney injury - trial of Bumex drip to augment urine volumes. Dietary Evaluation Review Comments: 1) Advance to [facility] 60gm + Renal specific 60gm as medically feasible 2) Refer to CDE on DC 3) Continue current plan of care Expected Outcomes/Goals: To meet 75% estimated needs fu 2-3 days Plan discussed with: Bulmaro, TANIA Nagel MD February 25, 2025 14:57
[2025-02-25] MEDS: BUMETANIDE INJECTION 12.5 MG in GIVE UN-DILUTED 0 ML IV SCH (17:04)
--- NOTE | 2025-02-25 21:16 | DVHPN2 ---
Progress Note - Dictate Date Seen: February 25, 2025 Has the PT tested + for MRSA If YES, has PT been informed?: No Medical Necessity Reason Pt with a Central, PICC or Fol: Yes The following are medically ne: Central Line, Lopez Catheter Subjective 69-year-old male postop day 7 S/P laparotomy with resection of small bowel for focal twisting and mesenteric ischemia and recurrent bowel obstruction and distention Pt has 69 y o male wth history of hepatic encephalopathy secondary to alcoholic liver cirrhosis, hyperammonemia, history of 2 OH 30 years back, CKD 3B, diabetes mellitus type 2, heart failure with preserved ejection fraction at 60%, Patient is currently intubated sedated ; On FiO2 of 30% with a PEEP of five He is hemodynamically more stable and is sedation and pressors are being weaned off No active GI bleeding is reported today Patient was on amiodarone drip Afib now in NSR Labs are improving vital signs Vital Sign Date Time Temp Pulse Resp B/P (MAP) Pulse Ox O2 Delivery O2 Flow Rate FiO2 02/25/25 20:16 61 24 104/46 (65) 97 30 02/25/25 18:00 Mechanical Ventilator+ 02/25/25 17:00 98.3 98.3 Total Intake and Output 02/24/25 02/24/25 02/25/25 15:00 23:00 07:00 Intake Total 1007.62 ml 867.906 ml 849.620 ml Output Total 1670 ml 1600 ml Balance 1007.62 ml -802.094 ml -750.380 ml medications Current Medications Medications Dose Ordered Sig/Tanya Route Start Time Stop Time Status Last Admin Dose Admin Amino Acids 0 ml @ 0 mls/hr PER PHARMACY IV 02/15/25 14:00 Pantoprazole Sodium 40 mg BID IV 02/18/25 09:45 02/25/25 09:56 40 MG Vasopressin 20 units/Sodium Chloride 100 ml @ 9 mls/hr Q11H7M IV 02/19/25 01:15 02/23/25 07:46 9 MLS/HR Midazolam HCl 50 ml @ 1 mls/hr Q24H IV 02/19/25 08:30 02/25/25 17:28 6 MLS/HR Fentanyl Citrate 250 ml @ 2.5 mls/hr Q24H IV 02/19/25 08:30 02/25/25 19:24 27.5 MLS/HR Vancomycin HCl 0 ml @ 0 mls/hr UD IV 02/19/25 16:15 Insulin Glargine 20 units QAM SC 02/21/25 07:00 02/25/25 06:28 20 UNITS Octreotide Acetate 100 mcg TID SUBCUT 02/20/25 14:00 02/25/25 13:40 100 MCG Phenylephrine HCl 80 mg/Sodium Chloride 250 ml @ 7.5 mls/hr Q24H IV 02/20/25 18:00 02/22/25 04:32 24.375 MLS/HR Norepinephrine Bitartrate 32 mg/ Sodium Chloride 250 ml @ 0.938 mls/ hr Q24H IV 02/20/25 18:00 02/25/25 17:29 4.688 MLS/HR Acetaminophen 650 mg Q6HP PRN OK 02/21/25 04:15 02/25/25 07:45 650 MG Micafungin Sodium 100 mg/Sodium Chloride 100 ml @ 100 mls/hr DAILY IV 02/21/25 10:00 02/25/25 11:52 100 MLS/HR Diagnostic Test (Pha) 1 strip Q6HR 02/21/25 12:00 02/25/25 17:51 1 STRIP Insulin Human Regular FOLLOW SLIDING SCALE Q6HR SC 02/21/25 12:00 02/25/25 18:01 4 UNITS Dextrose 50 ml UD IV 02/21/25 12:00 Meropenem 50 ml @ 17 mls/hr DAILY IV 02/24/25 10:00 02/25/25 13:02 17 MLS/HR Fat Emulsion Intravenous 200 ml/Sodium Acetate 50 meq/Potassium Chloride 40 meq/ Calcium Gluconate 2.3 meq/Magnesium Sulfate 8 meq/ Multivitamins 10 ml/Insulin Human Regular 38 units/ Amino Acids/ Dextrose 1,162.3262 ml @ 48 mls/hr [id number] IV 02/24/25 22:00 02/25/25 21:59 02/24/25 21:22 48 MLS/HR Propofol 100 ml @ 3.345 mls/ hr Q24H IV 02/25/25 09:00 02/25/25 20:13 10.035 MLS/HR Fat Emulsion Intravenous 200 ml/Sodium Chloride 40 meq/ Potassium Chloride 60 meq/ Calcium Gluconate 4.65 meq/ Magnesium Sulfate 12 meq/ Multivitamins 10 ml/Insulin Human Regular 42 units/ Amino Acids/ Dextrose 1,213.42 ml @ 51 mls/hr [id number] IV 02/25/25 22:00 02/26/25 21:59 Bumetanide 12.5 mg/Miscellaneous 50 ml @ 2 mls/hr Q24H IV 02/25/25 15:00 02/25/25 17:04 2 MLS/HR objective General: Well-built, obese, slight scleral icterus, mucosae are moist intubated sedated Cardiovascular: Regular S1 and S2 rrr trace bilateral pedal edema Respiratory: Normal B/L air entry on room air. Clear lung sounds on auscultation Abdomen: Soft, dressing is dry, absent bowel sounds, no rebound tenderness, no organomegaly, no masses; well-healed supraumbilical midline scar Neurological: No motor, no sensitive deficits, normal speech. Pupils are isocoric and reactive. Psych/Mental Status: A/Ox3 laboratory and microbiology Laboratory Tests 02/25/25 03:09 Test 02/25/25 03:09 Range/Units Serum Glucose 183 H 74-106 mg/dL Problems(with codes): (1) Acute renal insufficiency (2) Ileus (3) Cirrhosis of liver (4) UTI (urinary tract infection) (5) Hepatic encephalopathy (6) Enteritis (7) Abdominal pain Prognosis PLAN Continue supportive care Overall clinical picture is on the recovery trend Taper down sedation if possible Continue IV TPN Continue IV PPI Protonix 40 mg q.12 hours Monitor labs I will follow up Dietary Evaluation Review Comments: 1) Advance to [facility] 60gm + Renal specific 60gm as medically feasible 2) Refer to CDE on DC 3) Continue current plan of care Expected Outcomes/Goals: To meet 75% estimated needs fu 2-3 days Plan discussed with: Other (ICU Nurse) ZENAIDA PENA MD February 25, 2025 21:16
[2025-02-25] MEDS: TPN PER PHARMACY IV NR (22:05)
[2025-02-26] VITALS (111 sets, daily range): BP systolic 89–173; BP diastolic 32–77; PULSE 59–101; RESP 11–27; TEMP 98–100.8; O2SAT 93–98
[2025-02-26 04:10] LABS: Basophils # (auto) 0.1 10 ^3/uL (0-0.2); Basophils % (auto) 0.8 % (0.0-2.0); Eosinophils # (auto) 0.3 10 ^3/uL (0-0.8); Hematocrit 29.5 % (41.0-53.0); Hemoglobin 10.2 g/dL (13.5-17.5); Lymphocytes # (auto) 0.5 10 ^3/uL (0.4-5.4); Lymphocytes % (auto) 4.9 % (10.0-50.0); Mean Corpuscular Hemoglobin 32.6 pg (28.0-32.0); Mean Corpuscular Hgb Conc. 34.7 g/dL (32.0-36.0); Monocytes # (auto) 0.3 10 ^3/uL (0-1.3); Monocytes % (auto) 3.1 % (0.0-12.0); Neutrophils # (auto) 8.2 10 ^3/uL (1.6-8.6); Neutrophils % (auto) 88.2 % (37.0-80.0); Nucleated Red Blood Cells % 0.1 %; Platelet Count (auto) 165 10^3/uL (140-450); Red Blood Cells 3.13 10^6/uL (4.5-5.90); Red Cell Distribution Width 23.4 % (11.8-14.3); White Blood Cell 9.3 10^3/uL (4.4-10.8)
[2025-02-26 04:23] LABS: Anion Gap 12 (5-15); Carbon Dioxide 23 mmol/L (20-31); Chloride 106 mmol/L (98-107); Magnesium 2.1 mg/dL (1.6-2.6); Potassium 3.9 mmol/L (3.5-5.1); Sodium 141 mmol/L (136-145)
[2025-02-26 04:24] LABS: Phosphorus 3.9 mg/dL (2.4-5.1)
[2025-02-26 04:27] LABS: BUN/Creatinine Ratio 53.9 (10.0-20.0)
[2025-02-26 04:31] LABS: Alanine Aminotransferase 55 U/L (7-40); Albumin 1.8 g/dL (3.2-4.8); Alkaline Phosphatase 125 U/L (46-116); Aspartate Aminotransferase 114 U/L (13-40); Bilirubin, Total 14.4 mg/dL (0.2-1.0); Calcium 8.2 mg/dL (8.7-10.4); Glucose 224 mg/dL (74-106); Total Protein 4.6 g/dL (5.7-8.2)
[2025-02-26 04:32] LABS: Blood Urea Nitrogen 111 mg/dL (9-23)
--- NOTE | 2025-02-26 05:54 | DVH ---
INDICATION: vented TECHNIQUE: Single frontal view of the chest was obtained COMPARISON: XY CHEST PORTABLE on DOS: 02/25/25, XY CHEST PORTABLE on DOS: 02/24/25, XY CHEST PORTABLE o n DOS: 02/23/25, XY CHEST PORTABLE on DOS: 02/22/25, XY CHEST PORTABLE on DOS: 02/21/25, XY CHEST PORTAB LE on DOS: 02/25/25 FINDINGS: Lines and Tubes: Lines and tubes are unchanged compared to prior exam. Lungs: Mild pulmonary vascular congestion. Pleura: No effusion. No pneumothorax. Cardiomediastinal contours: Unremarkable Bones: No acute osseous abnormality. IMPRESSION: No significant change compared to prior exam.
--- NOTE | 2025-02-26 09:16 | DVHPN2 ---
Progress Note Date Seen: February 26, 2025 Resident Creating Document: TYRELL TAVAREZ RESIDENT Has the PT tested + for MRSA If YES, has PT been informed?: No Medical Necessity Reason Pt with a Central, PICC or Fol: Yes The following are medically ne: Central Line, Lopez Catheter Subjective Review of Systems This is a 69-year-old male patient with past medical history of recurrent admissions due to hepatic encephalopathy secondary to alcoholic liver cirrhosis, hyperammonemia, history of 2 GA 30 years back, CKD 3B, diabetes mellitus type 2 for 15 years, heart failure with preserved ejection fraction at 60%, colonoscopy status post polypectomy in 2018, paroxysmal atrial fibrillation, splenomegaly, Patrizia UTI in 02/2024, pneumonia status post intubation in 2018, hypertension and hyperlipidemia who presented to the ER with the chief complaint of dizziness and abdominal pain for the past 4x days. Patient reports that on 02/02 he was helping his son, and was working outside in the sun when he experienced dizziness but did not experience any fall, syncope, confusion. Patient since worsening abdominal distention, and diffuse lower abdominal pain. Reports last bowel movement was on 02/03, says that his abdomen was bloated and therefore he induced vomiting himself denies nausea or vomiting. Denies disorientation and confusion during the past week. Reports compliance to lactulose 30 daily. Patient is A&O x4, alert and oriented to name, place, time and situation. Last drink was 1996. On arrival to the ER, patient was vitally stable, WBC increased from 16-19, platelets 123 which is chronic. BMP showed sodium 146, now 132, potassium elevated at 5.8, was 4.5 on 02/04. BUN/creatinine went 26/1.7 GFR 42 on 02/04/2025, now 60/4.3, GFR 14. Patient had been anion gap metabolic acidosis. Lactic acid elevated at 2.3. Ammonia level 180, was 78 12/28. Patient was recently hospitalized in this facility on 07/13/2024 and was diagnosed with hepatic encephalopathy and diastolic heart failure exacerbation. He was A&O x4. Ammonia was 93. Past medical history: recurrent admissions due to hepatic encephalopathy secondary to alcoholic liver cirrhosis, hyperammonemia, history of 2 GA 30 years back, CKD 3B, diabetes mellitus type 2, heart failure with preserved ejection fraction at 60%, colonoscopy status post polypectomy in 2019, paroxysmal atrial fibrillation, splenomegaly, UTI, pneumonia status post intubation in 2018, hypertension and hyperlipidemia Past Surgical History: pneumonia status post intubation in 2018 Family History: None Social history: Lives with family, last drink 1986, denies smoking or illicit drug use PCP Dr. Turner Home medications: Lactulose t.i.d., spironolactone 100 mg, Coreg 6.2 5 mg b.i.d. , glipizide, atorvastatin patient recently stopped taking Sildenafil 100 mg, lisinopril 20 mg, Lasix 40 mg, amlodipine 10 mg, Finerenone in 20 mg, fexofenadine 02/06-Patient seen and examined at the bedside. No acute distress. Abdomen has shifting dullness, distended, hyperactive bowel sounds. 02/07-patient seen and examined at the bedside. Lopez catheter placement is still pending. No I&Os noted. Strict I&Os and Olpez catheter placement ordered again. Patient had a bowel movement earlier today. Bicarbonate increased from 13-17. 1 L D5 with 3 ampules of bicarb ordered. BUN/ creatinine increased to 84/4.9 02/08 - patient seen and examined at the bedside. Had 2 bowel movements. Urine output 1350cc per day, WBC trending down to 14 serum bicarb increased to 22. Overnight, Patient did not get D5 with bicarb 1 L. 02/09 - patient seen and examined at the bedside. Reports feeling better. Had a bowel movement. No suprapubic tenderness. 02/16 - seen and examined in the ICU. Urine output 200 cc. Placed left IJ Darrick catheter, hemodialysis pending. 02/19 - patient seen and examined at bedside. 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 Currently intubated and mechanically ventilated. FiO2 60%, peep 10. Follow up with urine electrolytes. 02/20 - patient seen and examined at bedside. u/o 600ml. Started Dopamine drip 2 mcg/hr and octreotide 300mg tid SQ for renal perfusion. 02/21-patient seen and examined at the bedside. Overnight febrile episodes reported. Urine output 385 cc. Dopamine was held given AFib with RVR. Currently on IV drips amiodarone, Levophed, phenylephrine. Patient underwent hemodialysis 02/20, 1 L taken out. Blood culture 02/19 growing budding yeast, patient started on micafungin 02/22-patient seen and examined in ICU. Overnight running 100.1 F. urine output increased to 800 cc, patient undergoing dialysis. Central line was removed 02/21 given febrile episodes. Pending culture results. Bilirubin trending up. 02/23-patient is seen and examined in the ICU. Overnight 100.1 F, saturating 97 on 30% FiO2. Urine output 900 cc. Hemoglobin down. 9.2. Platelets downtrending 60. BUN/creatinine downtrending 102/3.12. Hemodialysis tomorrow. Patient is on 2 pressors. 02/26 - patient seen and examined in ICU. Intermittent low-grade fevers. Urine output increasing more than 2 L. Pt is net negative. Creatinine downtrending, GFR improving. Objective vital signs Vital Sign Date Time Temp Pulse Resp B/P (MAP) Pulse Ox O2 Delivery O2 Flow Rate FiO2 02/26/25 08:37 70 26 98/47 (64) 96 30 02/26/25 06:00 Mechanical Ventilator+ 02/26/25 04:00 98.0 98.0 Total Intake and Output 02/25/25 02/25/25 02/26/25 15:00 23:00 07:00 Intake Total 1073.3395 ml 902.621 ml 829.395 ml Output Total 1665 ml 2520 ml Balance 1073.3395 ml -762.379 ml -1690.605 ml medications Current Medications Medications Dose Ordered Sig/Tanya Route Start Time Stop Time Status Last Admin Dose Admin Amino Acids 0 ml @ 0 mls/hr PER PHARMACY IV 02/15/25 14:00 Pantoprazole Sodium 40 mg BID IV 02/18/25 09:45 02/25/25 22:01 40 MG Vasopressin 20 units/Sodium Chloride 100 ml @ 9 mls/hr Q11H7M IV 02/19/25 01:15 02/23/25 07:46 9 MLS/HR Midazolam HCl 50 ml @ 1 mls/hr Q24H IV 02/19/25 08:30 02/26/25 01:17 7 MLS/HR Fentanyl Citrate 250 ml @ 2.5 mls/hr Q24H IV 02/19/25 08:30 02/26/25 03:47 27.5 MLS/HR Vancomycin HCl 0 ml @ 0 mls/hr UD IV 02/19/25 16:15 Insulin Glargine 20 units QAM SC 02/21/25 07:00 02/26/25 06:22 20 UNITS Octreotide Acetate 100 mcg TID SUBCUT 02/20/25 14:00 02/26/25 05:37 100 MCG Phenylephrine HCl 80 mg/Sodium Chloride 250 ml @ 7.5 mls/hr Q24H IV 02/20/25 18:00 02/22/25 04:32 24.375 MLS/HR Norepinephrine Bitartrate 32 mg/ Sodium Chloride 250 ml @ 0.938 mls/ hr Q24H IV 02/20/25 18:00 02/25/25 17:29 4.688 MLS/HR Acetaminophen 650 mg Q6HP PRN [place] 02/21/25 04:15 02/25/25 07:45 650 MG Micafungin Sodium 100 mg/Sodium Chloride 100 ml @ 100 mls/hr DAILY IV 02/21/25 10:00 02/25/25 11:52 100 MLS/HR Diagnostic Test (Pha) 1 strip Q6HR 02/21/25 12:00 02/26/25 05:29 1 STRIP Insulin Human Regular FOLLOW SLIDING SCALE Q6HR SC 02/21/25 12:00 02/26/25 05:30 8 UNITS Dextrose 50 ml UD IV 02/21/25 12:00 Meropenem 50 ml @ 17 mls/hr DAILY IV 02/24/25 10:00 02/25/25 13:02 17 MLS/HR Propofol 100 ml @ 3.345 mls/ hr Q24H IV 02/25/25 09:00 02/26/25 08:39 6.69 MLS/HR Fat Emulsion Intravenous 200 ml/Sodium Chloride 40 meq/ Potassium Chloride 60 meq/ Calcium Gluconate 4.65 meq/ Magnesium Sulfate 12 meq/ Multivitamins 10 ml/Insulin Human Regular 42 units/ Amino Acids/ Dextrose 1,213.42 ml @ 51 mls/hr [id number] IV 02/25/25 22:00 02/26/25 21:59 02/25/25 22:05 51 MLS/HR Bumetanide 12.5 mg/Miscellaneous 50 ml @ 2 mls/hr Q24H IV 02/25/25 15:00 02/26/25 08:15 2 MLS/HR Examination Patient lying in bed, intubated and mechanically ventilated. Left IJ Darrick cath placed 02/16, right IJ CVC replaced 02/21 General: Well-built, afebrile, scleral icterus, mucosae are moist Cardiovascular: Regular S1 and S2. No murmurs, gallops or rubs. No JVD elevation. 2+ bilateral pedal edema Respiratory: Bilateral decreased aeration on FiO2 60%, peep 10, saturating 97 % Abdomen: Soft, hypoactive bowel sounds, no rebound tenderness, no organomegaly, no masses. Sutures dry clean and intact. Drain attached, with a serosanguineous discharge Genitourinary: Lopez draining clear urine. MSK/skin: Skin is dry and warm laboratory and microbiology Laboratory Tests 02/26/25 03:30 Test 02/26/25 03:30 Range/Units Serum Glucose 224 H 74-106 mg/dL Microbiology Date/Time Source Procedure Growth Status 02/21/25 22:50 Catheter Tip Other Aerobic Culture - Preliminary Resulted 02/21/25 16:10 Voided Urine Urine Culture - Preliminary Resulted 02/21/25 15:00 Blood Blood Culture - Preliminary NO GROWTH AFTER 72 HOURS OF INCUBATION. Resulted 02/21/25 11:45 Sputum Gram Stain - Final Resulted 02/21/25 11:45 Sputum Respiratory Culture - Preliminary Resulted Labs and/or images reviewed: Labs reviewed by me, Image(s) reviewed by me Problem List/Assessment/Plan Problem List/Assessment/Plan Acute kidney injury, likely hemodynamic mediated etiology plus or minus ATN needing HD requiring hemodialysis Uremic encephalopathy Rule out urinary obstruction Acute hypoxic respiratory failure s/p mechanical ventilation 02/18 Sepsis due to SBO versus ileus status post exploratory laparotomy and small- bowel resection 02/18 Septic shock requiring pressor support ? Mesenteric thrombosis Decompensated liver cirrhosis Macrocytic Anemia History of hepatic encephalopathy Hyperkalemia Heart failure with preserved ejection fraction Diabetes mellitus type 2 History of paroxysmal AFib History of pneumonia status and intubation History of GA Hypertension Chronic thrombocytopenia Morbid obesity FENA 0.2 02/19/25 Small bowel series with Gastrografin shows Contrast is identified within the colon by 4 hours. This represents a delayed small bowel transit time without definite obstruction. Clinical correlation advised. Plan: Urine output increasing, BUN/creatinine downtrending. GFR increased to 35. Resolving acute kidney injury. We will continue to monitor off dialysis, last session was 02/22 and re-evaluate for hemodialysis daily. Continue Bumex drip at 2 mL/hour Dopamine drip 2 mcg/hr on hold, continue octreotide 300mg tid SQ for renal perfusion. Patient underwent hemodialysis today. 02/16, 02/17, 02/20, 02/22 Blood culture 02/21 negative-, 02/19 blood culture showed yeast Fena 0.2 DC half NS with sodium bicarb Patient is status post expiratory laparotomy, underwent 02/18 Continue Lopez placement until Urology clears. Consider Urology evaluation. Patient has received a total of 8 bags of D5 NS and 2 bags of D5W Bladder scan 02/07 showed 150 cc 02/07- patient did not receive 1 L D5 with 3 ampules of bicarb ordered 02/06- 1 L D5 with 3 amps bicarb and 3 bags of albumin administered IR Consulted for Paracentesis, no ascites, preliminary blood culture negative Continue IV antibiotics Bilirubin up trending, follow up with direct bilirubin Drips: Levophed, Bumex, off other pressors NPO TPN Central line replaced 02/21 Darrick cath placed 02/16 Plan discussed with patient's son at bedside in which all questions have been answered Case discussed with Dr. Clements Plan discussed with: Patient Dietary Evaluation Review Comments: 1) [facility] + Renal specific 60gm as medically feasible 2) Refer to CDE on DC 3) Continue current plan of care Expected Outcomes/Goals: To meet 75% estimated needs fu 2-3 days TYRELL TAVAREZ RESIDENT February 26, 2025 09:16
[2025-02-26 09:59] LABS: Base Excess -4.5 mmol/L (-2.0-3.0)
--- NOTE | 2025-02-26 13:19 | DVH ---
LEFT Upper Extremity Venous Duplex Clinical History: PER , ARM FEELS HARD Comparison: None Technique: Duplex Doppler evaluation of the venous system of the LEFT lower neck and upper extremity including color Doppler and spectral/pulsed waveform analysis was performed. Findings: The subclavian vein is patent on color Doppler evaluation without intraluminal thrombus and demonstra alba waveform variability. The visualized portion of the brachiocephalic vein is patent on color Doppler evaluation without intr aluminal thrombus and demonstrates waveform variability. The axillary vein demonstrates appropriate compressibility and waveform variability. The brachial veins demonstrate appropriate compressibility and patency on Doppler evaluation. The basilic vein demonstrates appropriate compressibility and patency on Doppler evaluation. Occlusive thrombus seen in the cephalic vein. Impression: 1. Occlusive thrombus seen in the left cephalic vein
--- NOTE | 2025-02-26 13:23 | DVHPN2 ---
Progress Note Date Seen: February 26, 2025 Has the PT tested + for MRSA If YES, has PT been informed?: No Medical Necessity Reason Pt with a Central, PICC or Fol: Yes The following are medically ne: Central Line, Lopez Catheter Objective vital signs Vital Sign Date Time Temp Pulse Resp B/P (MAP) Pulse Ox O2 Delivery O2 Flow Rate FiO2 02/26/25 12:00 24 96 Mechanical Ventilator+ 30 30 02/26/25 11:46 73 90/44 (59) 02/26/25 04:00 98.0 98.0 Total Intake and Output 02/25/25 02/25/25 02/26/25 15:00 23:00 07:00 Intake Total 1073.3395 ml 902.621 ml 829.395 ml Output Total 1665 ml 2520 ml Balance 1073.3395 ml -762.379 ml -1690.605 ml medications Current Medications Medications Dose Ordered Sig/Tanya Route Start Time Stop Time Status Last Admin Dose Admin Amino Acids 0 ml @ 0 mls/hr PER PHARMACY IV 02/15/25 14:00 Pantoprazole Sodium 40 mg BID IV 02/18/25 09:45 02/26/25 10:26 40 MG Vasopressin 20 units/Sodium Chloride 100 ml @ 9 mls/hr Q11H7M IV 02/19/25 01:15 02/23/25 07:46 9 MLS/HR Midazolam HCl 50 ml @ 1 mls/hr Q24H IV 02/19/25 08:30 02/26/25 01:17 7 MLS/HR Fentanyl Citrate 250 ml @ 2.5 mls/hr Q24H IV 02/19/25 08:30 02/26/25 03:47 27.5 MLS/HR Vancomycin HCl 0 ml @ 0 mls/hr UD IV 02/19/25 16:15 Insulin Glargine 20 units QAM SC 02/21/25 07:00 02/26/25 06:22 20 UNITS Octreotide Acetate 100 mcg TID SUBCUT 02/20/25 14:00 02/26/25 05:37 100 MCG Phenylephrine HCl 80 mg/Sodium Chloride 250 ml @ 7.5 mls/hr Q24H IV 02/20/25 18:00 02/22/25 04:32 24.375 MLS/HR Norepinephrine Bitartrate 32 mg/ Sodium Chloride 250 ml @ 0.938 mls/ hr Q24H IV 02/20/25 18:00 02/26/25 10:27 5.625 MLS/HR Acetaminophen 650 mg Q6HP PRN IA 02/21/25 04:15 02/25/25 07:45 650 MG Micafungin Sodium 100 mg/Sodium Chloride 100 ml @ 100 mls/hr DAILY IV 02/21/25 10:00 02/26/25 10:26 100 MLS/HR Diagnostic Test (Pha) 1 strip Q6HR 02/21/25 12:00 02/26/25 11:31 1 STRIP Insulin Human Regular FOLLOW SLIDING SCALE Q6HR SC 02/21/25 12:00 02/26/25 11:40 8 UNITS Dextrose 50 ml UD IV 02/21/25 12:00 Meropenem 50 ml @ 17 mls/hr DAILY IV 02/24/25 10:00 02/26/25 12:08 17 MLS/HR Propofol 100 ml @ 3.345 mls/ hr Q24H IV 02/25/25 09:00 02/26/25 08:39 6.69 MLS/HR Fat Emulsion Intravenous 200 ml/Sodium Chloride 40 meq/ Potassium Chloride 60 meq/ Calcium Gluconate 4.65 meq/ Magnesium Sulfate 12 meq/ Multivitamins 10 ml/Insulin Human Regular 42 units/ Amino Acids/ Dextrose 1,213.42 ml @ 51 mls/hr [id number] IV 02/25/25 22:00 02/26/25 21:59 02/25/25 22:05 51 MLS/HR Bumetanide 12.5 mg/Miscellaneous 50 ml @ 2 mls/hr Q24H IV 02/25/25 15:00 02/26/25 08:15 2 MLS/HR Vancomycin HCl 150 ml @ 150 mls/hr Q24H IV 02/26/25 15:00 Fat Emulsion Intravenous 100 ml/Sodium Acetate 40 meq/Potassium Acetate 60 meq/ Calcium Gluconate 2.3 meq/Magnesium Sulfate 12 meq/ Multivitamins 10 ml/Insulin Human Regular 40 units/ Amino Acids/ Dextrose/Purified Water 1,168.3462 ml @ 48 mls/hr [id number] IV 02/26/25 22:00 02/27/25 21:59 laboratory and microbiology Laboratory Tests 02/26/25 03:30 Test 02/26/25 03:30 Range/Units Serum Glucose 224 H 74-106 mg/dL Microbiology Date/Time Source Procedure Growth Status 02/21/25 22:50 Catheter Tip Other Aerobic Culture - Preliminary Resulted 02/21/25 16:10 Voided Urine Urine Culture - Preliminary Resulted 02/21/25 15:00 Blood Blood Culture - Preliminary NO GROWTH AFTER 72 HOURS OF INCUBATION. Resulted 02/21/25 11:45 Sputum Gram Stain - Final Resulted 02/21/25 11:45 Sputum Respiratory Culture - Preliminary Resulted Problem List/Assessment/Plan Problem List/Assessment/Plan INTUBATED HEMODYNAMICALLY LABILE ON VASOPRESSOR SUPPORT ABD SOFT LESS DISTENDED NO BM DRAIN 600 CC SEROSANGUINEOUS WBC WNL T BILI TRENDING DOWN KEEP NPO NG NURSE AND FAMILY AT BEDSIDE CONTINUE CLOSE OBSERVATION CONDITION REMAINS CRITICAL PT/PTT CONSIDER FFP INDICATED Plan discussed with: Other Dietary Evaluation Review Comments: 1) Advance to [facility] 60gm + Renal specific 60gm as medically feasible 2) Refer to CDE on DC 3) Continue current plan of care Expected Outcomes/Goals: To meet 75% estimated needs fu 2-3 days MARIANA PENA MD February 26, 2025 13:23
[2025-02-26] MEDS: VANCOMYCIN 750mg/150ml 150 ML IV SCH (14:53)
--- NOTE | 2025-02-26 15:40 | DVHPN2 ---
Progress Note - Dictate Date Seen: February 26, 2025 Has the PT tested + for MRSA If YES, has PT been informed?: No Medical Necessity Reason Pt with a Central, PICC or Fol: Yes The following are medically ne: Central Line, Lopez Catheter Subjective 69-year-old male postop day 8 S/P laparotomy with resection of small bowel for focal twisting and mesenteric ischemia and recurrent bowel obstruction and distention Pt has 69 y o male wth history of hepatic encephalopathy secondary to alcoholic liver cirrhosis, hyperammonemia, history of 2 VT 30 years back, CKD 3B, diabetes mellitus type 2, heart failure with preserved ejection fraction at 60%, Patient is currently intubated sedated ; On FiO2 of 30% with a PEEP of five He is hemodynamically more stable and is sedation and pressors are being weaned off No active GI bleeding is reported today Patient was on amiodarone drip Afib now in NSR Labs are improving vital signs Vital Sign Date Time Temp Pulse Resp B/P (MAP) Pulse Ox O2 Delivery O2 Flow Rate FiO2 02/26/25 15:15 81 21 126/42 (70) 95 116/51 (72) 02/26/25 14:00 Mechanical Ventilator+ 30 30 02/26/25 04:00 98.0 98.0 Total Intake and Output 02/25/25 02/25/25 02/26/25 15:00 23:00 07:00 Intake Total 1073.3395 ml 902.621 ml 829.395 ml Output Total 1665 ml 2520 ml Balance 1073.3395 ml -762.379 ml -1690.605 ml medications Current Medications Medications Dose Ordered Sig/Tanya Route Start Time Stop Time Status Last Admin Dose Admin Amino Acids 0 ml @ 0 mls/hr PER PHARMACY IV 02/15/25 14:00 Pantoprazole Sodium 40 mg BID IV 02/18/25 09:45 02/26/25 10:26 40 MG Vasopressin 20 units/Sodium Chloride 100 ml @ 9 mls/hr Q11H7M IV 02/19/25 01:15 02/23/25 07:46 9 MLS/HR Midazolam HCl 50 ml @ 1 mls/hr Q24H IV 02/19/25 08:30 02/26/25 01:17 7 MLS/HR Fentanyl Citrate 250 ml @ 2.5 mls/hr Q24H IV 02/19/25 08:30 02/26/25 03:47 27.5 MLS/HR Vancomycin HCl 0 ml @ 0 mls/hr UD IV 02/19/25 16:15 Insulin Glargine 20 units QAM SC 02/21/25 07:00 02/26/25 06:22 20 UNITS Octreotide Acetate 100 mcg TID SUBCUT 02/20/25 14:00 02/26/25 14:52 100 MCG Phenylephrine HCl 80 mg/Sodium Chloride 250 ml @ 7.5 mls/hr Q24H IV 02/20/25 18:00 02/22/25 04:32 24.375 MLS/HR Norepinephrine Bitartrate 32 mg/ Sodium Chloride 250 ml @ 0.938 mls/ hr Q24H IV 02/20/25 18:00 02/26/25 10:27 5.625 MLS/HR Acetaminophen 650 mg Q6HP PRN MS 02/21/25 04:15 02/25/25 07:45 650 MG Micafungin Sodium 100 mg/Sodium Chloride 100 ml @ 100 mls/hr DAILY IV 02/21/25 10:00 02/26/25 10:26 100 MLS/HR Diagnostic Test (Pha) 1 strip Q6HR 02/21/25 12:00 02/26/25 11:31 1 STRIP Insulin Human Regular FOLLOW SLIDING SCALE Q6HR SC 02/21/25 12:00 02/26/25 11:40 8 UNITS Dextrose 50 ml UD IV 02/21/25 12:00 Meropenem 50 ml @ 17 mls/hr DAILY IV 02/24/25 10:00 02/26/25 12:08 17 MLS/HR Propofol 100 ml @ 3.345 mls/ hr Q24H IV 02/25/25 09:00 02/26/25 08:39 6.69 MLS/HR Fat Emulsion Intravenous 200 ml/Sodium Chloride 40 meq/ Potassium Chloride 60 meq/ Calcium Gluconate 4.65 meq/ Magnesium Sulfate 12 meq/ Multivitamins 10 ml/Insulin Human Regular 42 units/ Amino Acids/ Dextrose 1,213.42 ml @ 51 mls/hr [id number] IV 02/25/25 22:00 02/26/25 21:59 02/25/25 22:05 51 MLS/HR Bumetanide 12.5 mg/Miscellaneous 50 ml @ 2 mls/hr Q24H IV 02/25/25 15:00 02/26/25 08:15 2 MLS/HR Vancomycin HCl 150 ml @ 150 mls/hr Q24H IV 02/26/25 15:00 02/26/25 14:53 150 MLS/HR Fat Emulsion Intravenous 100 ml/Sodium Acetate 40 meq/Potassium Acetate 60 meq/ Calcium Gluconate 2.3 meq/Magnesium Sulfate 12 meq/ Multivitamins 10 ml/Insulin Human Regular 40 units/ Amino Acids/ Dextrose/Purified Water 1,168.3462 ml @ 48 mls/hr [id number] IV 02/26/25 22:00 02/27/25 21:59 objective General: Well-built, obese, slight scleral icterus, mucosae are moist intubated sedated Cardiovascular: Regular S1 and S2 rrr trace bilateral pedal edema Respiratory: Normal B/L air entry on room air. Clear lung sounds on auscultation Abdomen: Soft, dressing is dry, absent bowel sounds, no rebound tenderness, no organomegaly, no masses; well-healed supraumbilical midline scar Neurological: No motor, no sensitive deficits, normal speech. Pupils are isocoric and reactive. Psych/Mental Status: A/Ox3 laboratory and microbiology Laboratory Tests 02/26/25 03:30 Test 02/26/25 03:30 Range/Units Serum Glucose 224 H 74-106 mg/dL Problems(with codes): (1) Acute renal insufficiency (2) Altered level of consciousness (3) Ileus (4) Cirrhosis of liver (5) GERD (gastroesophageal reflux disease) (6) Hepatic encephalopathy (7) Enteritis Prognosis PLAN Continue supportive care Overall clinical picture is on the recovery trend Taper down sedation if possible Continue IV TPN Continue IV PPI Protonix 40 mg q.12 hours Monitor labs I will follow up Dietary Evaluation Review Comments: 1) [facility] + Renal specific 60gm as medically feasible 2) Refer to CDE on DC 3) Continue current plan of care Expected Outcomes/Goals: To meet 75% estimated needs fu 2-3 days Plan discussed with: Other (Dr Montano) ZENAIDA PENA MD February 26, 2025 15:40
--- NOTE | 2025-02-26 18:28 | DVHPNRES ---
Progress Note Date Seen: February 26, 2025 Resident Creating Document: FEDERICO CLARKE RESIDENT Has the PT tested + for MRSA If YES, has PT been informed?: No Medical Necessity Reason Pt with a Central, PICC or Fol: Yes The following are medically ne: Central Line, Lopez Catheter Subjective Review of Systems This is a 69-year-old male patient with past medical history of recurrent admissions due to hepatic encephalopathy secondary to alcoholic liver cirrhosis, hyperammonemia, history of 2 ME 30 years back, CKD 3B, diabetes mellitus type 2 for 15 years, heart failure with preserved ejection fraction at 60%, colonoscopy status post polypectomy in 2019, paroxysmal atrial fibrillation, splenomegaly, Patrizia UTI in 02/2024, pneumonia status post intubation in 2018, hypertension and hyperlipidemia who presented to the ER with the chief complaint of dizziness and abdominal pain for the past 4x days. Patient reports that on 02/02 he was helping his son, and was working outside in the sun when he experienced dizziness but did not experience any fall, syncope, confusion. Patient since worsening abdominal distention, and diffuse lower abdominal pain. Reports last bowel movement was on 02/03, says that his abdomen was bloated and therefore he induced vomiting himself denies nausea or vomiting. Denies disorientation and confusion during the past week. Reports compliance to lactulose 30 daily. Patient seen and examined at bedside. 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 Currently intubated and mechanically ventilated. FiO2 30%, peep 5, Tidal volume 500 ml and RR 24. S/P Exploratory laparotomy with bowel resection and anastomosis day 8. Objective vital signs Vital Sign Date Time Temp Pulse Resp B/P (MAP) Pulse Ox O2 Delivery O2 Flow Rate FiO2 02/26/25 17:33 100.8 02/26/25 16:07 83 24 113/51 (71) 94 30 02/26/25 16:00 Mechanical Ventilator+ Total Intake and Output 02/25/25 02/25/25 02/26/25 15:00 23:00 07:00 Intake Total 1073.3395 ml 902.621 ml 942.870 ml Output Total 1665 ml 2520 ml Balance 1073.3395 ml -762.379 ml -1577.130 ml medications Current Medications Medications Dose Ordered Sig/Tanya Route Start Time Stop Time Status Last Admin Dose Admin Amino Acids 0 ml @ 0 mls/hr PER PHARMACY IV 02/15/25 14:00 Pantoprazole Sodium 40 mg BID IV 02/18/25 09:45 02/26/25 10:26 40 MG Vasopressin 20 units/Sodium Chloride 100 ml @ 9 mls/hr Q11H7M IV 02/19/25 01:15 02/23/25 07:46 9 MLS/HR Midazolam HCl 50 ml @ 1 mls/hr Q24H IV 02/19/25 08:30 02/26/25 01:17 7 MLS/HR Fentanyl Citrate 250 ml @ 2.5 mls/hr Q24H IV 02/19/25 08:30 02/26/25 03:47 27.5 MLS/HR Vancomycin HCl 0 ml @ 0 mls/hr UD IV 02/19/25 16:15 Insulin Glargine 20 units QAM SC 02/21/25 07:00 02/26/25 06:22 20 UNITS Octreotide Acetate 100 mcg TID SUBCUT 02/20/25 14:00 02/26/25 14:52 100 MCG Phenylephrine HCl 80 mg/Sodium Chloride 250 ml @ 7.5 mls/hr Q24H IV 02/20/25 18:00 02/22/25 04:32 24.375 MLS/HR Norepinephrine Bitartrate 32 mg/ Sodium Chloride 250 ml @ 0.938 mls/ hr Q24H IV 02/20/25 18:00 02/26/25 10:27 5.625 MLS/HR Acetaminophen 650 mg Q6HP PRN [place] 02/21/25 04:15 02/26/25 17:33 650 MG Micafungin Sodium 100 mg/Sodium Chloride 100 ml @ 100 mls/hr DAILY IV 02/21/25 10:00 02/26/25 10:26 100 MLS/HR Diagnostic Test (Pha) 1 strip Q6HR 02/21/25 12:00 02/26/25 17:30 1 STRIP Insulin Human Regular FOLLOW SLIDING SCALE Q6HR SC 02/21/25 12:00 02/26/25 17:33 2 UNITS Dextrose 50 ml UD IV 02/21/25 12:00 Meropenem 50 ml @ 17 mls/hr DAILY IV 02/24/25 10:00 02/26/25 12:08 17 MLS/HR Propofol 100 ml @ 3.345 mls/ hr Q24H IV 02/25/25 09:00 02/26/25 08:39 6.69 MLS/HR Fat Emulsion Intravenous 200 ml/Sodium Chloride 40 meq/ Potassium Chloride 60 meq/ Calcium Gluconate 4.65 meq/ Magnesium Sulfate 12 meq/ Multivitamins 10 ml/Insulin Human Regular 42 units/ Amino Acids/ Dextrose 1,213.42 ml @ 51 mls/hr [id number] IV 02/25/25 22:00 02/26/25 21:59 02/25/25 22:05 51 MLS/HR Bumetanide 12.5 mg/Miscellaneous 50 ml @ 2 mls/hr Q24H IV 02/25/25 15:00 02/26/25 08:15 2 MLS/HR Vancomycin HCl 150 ml @ 150 mls/hr Q24H IV 02/26/25 15:00 02/26/25 14:53 150 MLS/HR Fat Emulsion Intravenous 100 ml/Sodium Acetate 40 meq/Potassium Acetate 60 meq/ Calcium Gluconate 2.3 meq/Magnesium Sulfate 12 meq/ Multivitamins 10 ml/Insulin Human Regular 40 units/ Amino Acids/ Dextrose/Purified Water 1,168.3462 ml @ 48 mls/hr [id number] IV 02/26/25 22:00 02/27/25 21:59 Examination Physical exam: General: RASS -3, afebrile, mucosae are moist Cardiovascular: Normal S1 and S2. No murmurs, gallops or rubs Respiratory: Mechanically assisted ventilation, equal bilateral airway entree. Bilateral crackles Abdomen: Soft, hypoactive bowel sounds, no organomegaly, no masses. Bloody serosanguineous discharge coming out from the lower part of the suture,LISA drain, with serosanguineous discharge 950 mL in last 12 hours MSK/skin: Mobilization of limbs cannot be evaluated. Skin is dry and warm. Bilateral edema +. Neurological: Orientation cannot be assessed. No apparent motor no sensitive deficits. Pupils are isocoric and reactive laboratory and microbiology Laboratory Tests 02/26/25 03:30 Test 02/26/25 03:30 Range/Units Serum Glucose 224 H 74-106 mg/dL Microbiology Date/Time Source Procedure Growth Status 02/21/25 22:50 Catheter Tip Other Aerobic Culture - Preliminary Resulted 02/21/25 16:10 Voided Urine Urine Culture - Preliminary Resulted 02/21/25 15:00 Blood Blood Culture - Final NO GROWTH AFTER 5 DAYS OF INCUBATION. Complete 02/21/25 11:45 Sputum Gram Stain - Final Resulted 02/21/25 11:45 Sputum Respiratory Culture - Preliminary Resulted Labs and/or images reviewed: Labs reviewed by me, Image(s) reviewed by me Problem List/Assessment/Plan Problem List/Assessment/Plan Assessment and plan: NEURO: Acute metabolic encephalopathy Hyperammonemia On mechanical ventilation RASS score: -3 CARDIOVASCULAR: Possible acute on chronic diastolic heart failure Paroxysmal atrial fibrillation with secondary hypercoagulable state, on amiodarone drip - Echo on 02/19 revealed lvef 65% .moderate LVH ,septal hypertrophy, normal RV function, RV enlarged mild left atrium enlarged - Blood culture is positive for fungus - Echo on 02/22/25 showed EF 70% and no valve abnormalities noted. 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 The distal small bowel loops are relatively nondilated. There is mesenteric edema and stranding as well as small bowel wall thickening. These findings are suggestive of at least a partial small bowel obstruction. Cirrhotic Morphology liver with sequela portal hypertension including extensive perisplenic varices. Small amount of ascites fluid which may be secondary to the underlying cirrhosis and/or small bowel obstruction. - Gastrografin small bowel series on 02/14/25 showed Contrast only noted in the stomach none in the small bowel. Persistent gaseous distention of the small bowel. - S/P exploratory laparotomy with small-bowel resection and anastomosis, day 8 - Ammonia dropped down to 37 and bilirubin is trending down GENITOURINARY: Acute kidney injury, likely hemodynamic mediated etiology and possible ATN requiring hemodialysis Acute complicated cystitis Uremic encephalopathy Rule out urinary obstruction Anion gap metabolic acidosis likely due to lactic acidosis and kidney impairment - Patient underwent HD on 02/22 and 2.3L ultrafiltration removed - U/O in last 12 hours 730 mL - Urine output is progressively improved , Nephrology recommended to remove left IJ Darrick catheter and catheter tip was sent for culture - Discontinued IV albumin as patient seems volume overloaded. - Discontinued dopamine drip because of increased heart rate. - Patient is on IV vancomycin as per pharmacy, IV meropenem 500 mg q.12 hours and IV micafungin 100 mg daily. ENDOCRINE: Type 2 diabetes mellitus, hemoglobin A1c 7.2 on 01/30 - Moderate sliding scale of insulin - Lantus 20 unit at [facility] METABOLIC: Morbid obesity, BMI 38 kg / m2 Severe protein calorie malnutrition, albumin 2 HEME: Thrombocytopenia and coagulopathy likely due to cirrhosis INFECTIOUS DISEASE: Sepsis with septic shock secondary to bowel ischemia likely due to SBO versus mesenteric vein thrombosis Lactic acidosis secondary to cirrhosis and bowel ischemia - Blood culture demonstrated budding yeast and culture from abdominal abscess showed Enterococcus - Ordered new blood culture, urinary culture - Patient is on IV vancomycin as per pharmacy, IV meropenem 500 mg q.12 hours and IV micafungin 100 mg daily. DIET: NPO, TPN per pharmacy DVT prophylax: SCD GI prophylaxis: Protonix Bowel regimen: Code status: Full code LINES/DRAINS/ACCESS: ETT: Intubated on 02/18/25 IV access: Right femoral central line with triple-lumen placed on 0 02/21/25. Drips: Norepinephrine, Amio, propofol, Versed, fentanyl Lopez catheter: placed on 02/21/25 DISPOSITION: ICU Patient's status discussed with Daughter, managed care manager time spent more than 81 minutes, including patient care, chart review, and updating the family. Excluding any procedures. Case discussed with Plan discussed with: Other (Daughter, son, RN) My Orders My Orders Orders - FEDERICO CLARKE Procedure Category Date Status Time Abg W/ Co-Ox RT 02/26/25 Logged 10:01 Lt Upper Dvt US 02/26/25 Resulted 09:55 Routine Bacterial GRECIA 02/26/25 In Process Culture 14:18 Dietary Evaluation Review Comments: 1) [facility] + Renal specific 60gm as medically feasible 2) Refer to CDE on DC 3) Continue current plan of care Expected Outcomes/Goals: To meet 75% estimated needs fu 2-3 days FEDERICO CLARKE RESIDENT February 26, 2025 18:28
[2025-02-26] MEDS: TPN PER PHARMACY IV NR (22:29)
[2025-02-27] VITALS (102 sets, daily range): BP systolic 43–175; BP diastolic 27–66; PULSE 72–108; RESP 18–35; TEMP 98.2–100.5; O2SAT 86–98
[2025-02-27 04:06] LABS: Basophils # (auto) 0.1 10 ^3/uL (0-0.2); Basophils % (auto) 0.4 % (0.0-2.0); Eosinophils # (auto) 0.3 10 ^3/uL (0-0.8); Eosinophils % (auto) 2.6 % (0.0-7.0); Hematocrit 31.5 % (41.0-53.0); Hemoglobin 10.4 g/dL (13.5-17.5); Lymphocytes # (auto) 0.6 10 ^3/uL (0.4-5.4); Lymphocytes % (auto) 4.6 % (10.0-50.0); Mean Corpuscular Hemoglobin 31.3 pg (28.0-32.0); Mean Corpuscular Hgb Conc. 32.9 g/dL (32.0-36.0); Mean Corpuscular Volume 95.1 fL (80.0-100.0); Monocytes # (auto) 0.7 10 ^3/uL (0-1.3); Monocytes % (auto) 5.1 % (0.0-12.0); Neutrophils # (auto) 11.7 10 ^3/uL (1.6-8.6); Neutrophils % (auto) 87.3 % (37.0-80.0); Nucleated Red Blood Cells % 0.2 %; Platelet Count (auto) 205 10^3/uL (140-450); Red Blood Cells 3.31 10^6/uL (4.5-5.90); Red Cell Distribution Width 23.8 % (11.8-14.3); White Blood Cell 13.3 10^3/uL (4.4-10.8)
[2025-02-27 04:18] LABS: Anion Gap 13 (5-15); Carbon Dioxide 22 mmol/L (20-31); Chloride 106 mmol/L (98-107); Magnesium 2.2 mg/dL (1.6-2.6); Potassium 4.7 mmol/L (3.5-5.1); Sodium 141 mmol/L (136-145)
--- NOTE | 2025-02-27 04:19 | DVH ---
INDICATION: Mechanical ventilation TECHNIQUE: Single frontal view of the chest was obtained COMPARISON: XY CHEST PORTABLE on DOS: 02/26/25, XY CHEST PORTABLE on DOS: 02/25/25, XY CHEST PORTABLE o n DOS: 02/24/25, XY CHEST PORTABLE on DOS: 02/23/25, XY CHEST PORTABLE on DOS: 02/22/25, XY CHEST PORTAB LE on DOS: 02/26/25 FINDINGS: Lines and Tubes: Lines and tubes are unchanged compared to prior exam. Lungs: Mild pulmonary vascular congestion. Pleura: No effusion. No pneumothorax. Cardiomediastinal contours: Unremarkable Bones: No acute osseous abnormality. IMPRESSION: No significant change compared to prior exam.
[2025-02-27 04:38] LABS: BUN/Creatinine Ratio 46.4 (10.0-20.0)
[2025-02-27 04:40] LABS: Alanine Aminotransferase 66 U/L (7-40); Albumin 1.8 g/dL (3.2-4.8); Alkaline Phosphatase 148 U/L (46-116); Aspartate Aminotransferase 145 U/L (13-40); Bilirubin, Total 14.1 mg/dL (0.2-1.0); Blood Urea Nitrogen 115 mg/dL (9-23); Calcium 8.2 mg/dL (8.7-10.4); Glucose 165 mg/dL (74-106); Phosphorus 5.6 mg/dL (2.4-5.1); Total Protein 4.8 g/dL (5.7-8.2)
[2025-02-27 07:08] LABS: Base Excess -2.9 mmol/L (-2.0-3.0)
--- NOTE | 2025-02-27 08:53 | DVHPN2 ---
Progress Note Date Seen: February 27, 2025 Resident Creating Document: TYRELL TAVAREZ RESIDENT Has the PT tested + for MRSA If YES, has PT been informed?: No Medical Necessity Reason Pt with a Central, PICC or Fol: Yes The following are medically ne: Central Line, Lopez Catheter Subjective Review of Systems This is a 69-year-old male patient with past medical history of recurrent admissions due to hepatic encephalopathy secondary to alcoholic liver cirrhosis, hyperammonemia, history of 2 SD 30 years back, CKD 3B, diabetes mellitus type 2 for 15 years, heart failure with preserved ejection fraction at 60%, colonoscopy status post polypectomy in 2018, paroxysmal atrial fibrillation, splenomegaly, Patrizia UTI in 02/2024, pneumonia status post intubation in 2018, hypertension and hyperlipidemia who presented to the ER with the chief complaint of dizziness and abdominal pain for the past 4x days. Patient reports that on 02/02 he was helping his son, and was working outside in the sun when he experienced dizziness but did not experience any fall, syncope, confusion. Patient since worsening abdominal distention, and diffuse lower abdominal pain. Reports last bowel movement was on 02/03, says that his abdomen was bloated and therefore he induced vomiting himself denies nausea or vomiting. Denies disorientation and confusion during the past week. Reports compliance to lactulose 30 daily. Patient is A&O x4, alert and oriented to name, place, time and situation. Last drink was 1996. On arrival to the ER, patient was vitally stable, WBC increased from 16-19, platelets 123 which is chronic. BMP showed sodium 146, now 132, potassium elevated at 5.8, was 4.5 on 02/04. BUN/creatinine went 26/1.7 GFR 42 on 02/04/2025, now 60/4.3, GFR 14. Patient had been anion gap metabolic acidosis. Lactic acid elevated at 2.3. Ammonia level 180, was 78 12/28. Patient was recently hospitalized in this facility on 07/13/2024 and was diagnosed with hepatic encephalopathy and diastolic heart failure exacerbation. He was A&O x4. Ammonia was 93. Past medical history: recurrent admissions due to hepatic encephalopathy secondary to alcoholic liver cirrhosis, hyperammonemia, history of 2 SD 30 years back, CKD 3B, diabetes mellitus type 2, heart failure with preserved ejection fraction at 60%, colonoscopy status post polypectomy in 2019, paroxysmal atrial fibrillation, splenomegaly, UTI, pneumonia status post intubation in 2018, hypertension and hyperlipidemia Past Surgical History: pneumonia status post intubation in 2018 Family History: None Social history: Lives with family, last drink 1986, denies smoking or illicit drug use PCP Dr. Turner Home medications: Lactulose t.i.d., spironolactone 100 mg, Coreg 6.2 5 mg b.i.d. , glipizide, atorvastatin patient recently stopped taking Sildenafil 100 mg, lisinopril 20 mg, Lasix 40 mg, amlodipine 10 mg, Finerenone in 20 mg, fexofenadine 02/06-Patient seen and examined at the bedside. No acute distress. Abdomen has shifting dullness, distended, hyperactive bowel sounds. 02/07-patient seen and examined at the bedside. Lopez catheter placement is still pending. No I&Os noted. Strict I&Os and Lopez catheter placement ordered again. Patient had a bowel movement earlier today. Bicarbonate increased from 13-17. 1 L D5 with 3 ampules of bicarb ordered. BUN/ creatinine increased to 84/4.9 02/08 - patient seen and examined at the bedside. Had 2 bowel movements. Urine output 1350cc per day, WBC trending down to 14 serum bicarb increased to 22. Overnight, Patient did not get D5 with bicarb 1 L. 02/09 - patient seen and examined at the bedside. Reports feeling better. Had a bowel movement. No suprapubic tenderness. 02/16 - seen and examined in the ICU. Urine output 200 cc. Placed left IJ Darrick catheter, hemodialysis pending. 02/19 - patient seen and examined at bedside. 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 Currently intubated and mechanically ventilated. FiO2 60%, peep 10. Follow up with urine electrolytes. 02/20 - patient seen and examined at bedside. u/o 600ml. Started Dopamine drip 2 mcg/hr and octreotide 300mg tid SQ for renal perfusion. 02/21-patient seen and examined at the bedside. Overnight febrile episodes reported. Urine output 385 cc. Dopamine was held given AFib with RVR. Currently on IV drips amiodarone, Levophed, phenylephrine. Patient underwent hemodialysis 02/20, 1 L taken out. Blood culture 02/19 growing budding yeast, patient started on micafungin 02/22-patient seen and examined in ICU. Overnight running 100.1 F. urine output increased to 800 cc, patient undergoing dialysis. Central line was removed 02/21 given febrile episodes. Pending culture results. Bilirubin trending up. 02/23-patient is seen and examined in the ICU. Overnight 100.1 F, saturating 97 on 30% FiO2. Urine output 900 cc. Hemoglobin down. 9.2. Platelets downtrending 60. BUN/creatinine downtrending 102/3.12. Hemodialysis tomorrow. Patient is on 2 pressors. 02/26 - patient seen and examined in ICU. Intermittent low-grade fevers. Urine output increasing more than 2 L. Pt is net negative. Creatinine downtrending, GFR improving. Continue bumex drip 02/27 - patient seen and examined in ICU. overnight low grade 100.4F, WBC up trending to 13, U/O consistently over 2 L, Cr inc to 2.4 <- 2.0, gfr 28 Continue bumex 0.5mg/hr Objective vital signs Vital Sign Date Time Temp Pulse Resp B/P (MAP) Pulse Ox O2 Delivery O2 Flow Rate FiO2 02/27/25 08:22 74 25 127/57 (80) 95 30 02/27/25 08:15 98.7 98.7 02/27/25 08:00 Mechanical Ventilator+ Total Intake and Output 02/26/25 02/26/25 02/27/25 15:00 23:00 07:00 Intake Total 934.891 ml 882.614 ml 754.512 ml Output Total 2525 ml 440 ml Balance 934.891 ml -1642.386 ml 314.512 ml medications Current Medications Medications Dose Ordered Sig/Tanya Route Start Time Stop Time Status Last Admin Dose Admin Amino Acids 0 ml @ 0 mls/hr PER PHARMACY IV 02/15/25 14:00 Pantoprazole Sodium 40 mg BID IV 02/18/25 09:45 02/26/25 22:24 40 MG Vasopressin 20 units/Sodium Chloride 100 ml @ 9 mls/hr Q11H7M IV 02/19/25 01:15 02/27/25 01:06 9 MLS/HR Midazolam HCl 50 ml @ 1 mls/hr Q24H IV 02/19/25 08:30 02/26/25 01:17 7 MLS/HR Fentanyl Citrate 250 ml @ 2.5 mls/hr Q24H IV 02/19/25 08:30 02/26/25 03:47 27.5 MLS/HR Vancomycin HCl 0 ml @ 0 mls/hr UD IV 02/19/25 16:15 Insulin Glargine 20 units QAM SC 02/21/25 07:00 02/27/25 06:28 20 UNITS Octreotide Acetate 100 mcg TID SUBCUT 02/20/25 14:00 02/27/25 05:12 100 MCG Phenylephrine HCl 80 mg/Sodium Chloride 250 ml @ 7.5 mls/hr Q24H IV 02/20/25 18:00 02/22/25 04:32 24.375 MLS/HR Acetaminophen 650 mg Q6HP PRN AR 02/21/25 04:15 02/26/25 17:33 650 MG Micafungin Sodium 100 mg/Sodium Chloride 100 ml @ 100 mls/hr DAILY IV 02/21/25 10:00 02/26/25 10:26 100 MLS/HR Diagnostic Test (Pha) 1 strip Q6HR 02/21/25 12:00 02/27/25 06:28 1 STRIP Insulin Human Regular FOLLOW SLIDING SCALE Q6HR SC 02/21/25 12:00 02/27/25 06:28 4 UNITS Dextrose 50 ml UD IV 02/21/25 12:00 Meropenem 50 ml @ 17 mls/hr DAILY IV 02/24/25 10:00 02/26/25 12:08 17 MLS/HR Propofol 100 ml @ 3.345 mls/ hr Q24H IV 02/25/25 09:00 02/26/25 22:43 3.345 MLS/HR Bumetanide 12.5 mg/Miscellaneous 50 ml @ 2 mls/hr Q24H IV 02/25/25 15:00 02/26/25 20:17 2 MLS/HR Vancomycin HCl 150 ml @ 150 mls/hr Q24H IV 02/26/25 15:00 02/26/25 14:53 150 MLS/HR Fat Emulsion Intravenous 100 ml/Sodium Acetate 40 meq/Potassium Acetate 60 meq/ Calcium Gluconate 2.3 meq/Magnesium Sulfate 12 meq/ Multivitamins 10 ml/Insulin Human Regular 40 units/ Amino Acids/ Dextrose/Purified Water 1,168.3462 ml @ 48 mls/hr [id number] IV 02/26/25 22:00 02/27/25 21:59 02/26/25 22:29 48 MLS/HR Norepinephrine Bitartrate 32 mg/ Sodium Chloride 250 ml @ 0.469 mls/ hr Q24H IV 02/27/25 07:45 Examination Patient lying in bed, intubated and mechanically ventilated. Left IJ Darrick cath placed 02/16, right IJ CVC replaced 02/21 General: Well-built, afebrile, scleral icterus, mucosae are moist Cardiovascular: Regular S1 and S2. No murmurs, gallops or rubs. No JVD elevation. 2+ bilateral pedal edema Respiratory: Bilateral decreased aeration on FiO2 60%, peep 10, saturating 97 % Abdomen: Soft, hypoactive bowel sounds, no rebound tenderness, no organomegaly, no masses. Sutures dry clean and intact. Drain attached, with a serosanguineous discharge Genitourinary: Lopez draining clear urine. MSK/skin: Skin is dry and warm laboratory and microbiology Laboratory Tests 02/27/25 03:00 Test 02/27/25 03:00 Range/Units Serum Glucose 165 H 74-106 mg/dL Microbiology Date/Time Source Procedure Growth Status 02/21/25 22:50 Catheter Tip Other Aerobic Culture - Preliminary Resulted 02/21/25 16:10 Voided Urine Urine Culture - Preliminary Resulted 02/21/25 15:00 Blood Blood Culture - Final NO GROWTH AFTER 5 DAYS OF INCUBATION. Complete 02/21/25 11:45 Sputum Gram Stain - Final Resulted 02/21/25 11:45 Sputum Respiratory Culture - Preliminary Resulted Labs and/or images reviewed: Labs reviewed by me, Image(s) reviewed by me Problem List/Assessment/Plan Problem List/Assessment/Plan Acute kidney injury, likely hemodynamic mediated etiology plus or minus ATN needing HD requiring hemodialysis Uremic encephalopathy Rule out urinary obstruction Acute hypoxic respiratory failure s/p mechanical ventilation 02/18 Sepsis due to SBO versus ileus status post exploratory laparotomy and small- bowel resection 02/18 Septic shock requiring pressor support ? Mesenteric thrombosis Decompensated liver cirrhosis Macrocytic Anemia History of hepatic encephalopathy Hyperkalemia Heart failure with preserved ejection fraction Diabetes mellitus type 2 History of paroxysmal AFib History of pneumonia status and intubation History of SD Hypertension Chronic thrombocytopenia Morbid obesity FENA 0.2 02/19/25 Small bowel series with Gastrografin shows Contrast is identified within the colon by 4 hours. This represents a delayed small bowel transit time without definite obstruction. Clinical correlation advised. Plan: Urine output consistently over 2L for the past 2 days, BUN/creatinine slightly uptrending GFR 28. Resolving acute kidney injury. We will continue to monitor off dialysis, last session was 02/22 and re-evaluate for hemodialysis daily. Continue Bumex drip at 0.5 mL/hour, strict I and Os Dopamine drip 2 mcg/hr on hold, continue octreotide 300mg tid SQ for renal perfusion. Patient underwent hemodialysis today. 02/16, 02/17, 02/20, 02/22 Blood culture 02/21 negative-, 02/19 blood culture showed yeast Fena 0.2 DC half NS with sodium bicarb Patient is status post expiratory laparotomy, underwent 02/18 Continue Lopez placement until Urology clears. Consider Urology evaluation. Patient has received a total of 8 bags of D5 NS and 2 bags of D5W Bladder scan 02/07 showed 150 cc 02/07- patient did not receive 1 L D5 with 3 ampules of bicarb ordered 02/06- 1 L D5 with 3 amps bicarb and 3 bags of albumin administered IR Consulted for Paracentesis, no ascites, preliminary blood culture negative Continue IV antibiotics Bilirubin up trending, follow up with direct bilirubin Drips: Levophed, Bumex, off other pressors NPO TPN Central line replaced 02/21 Darrick cath placed 02/16 till 02/26 Plan discussed with patient's son at bedside in which all questions have been answered Case discussed with Dr. Clements Plan discussed with: Patient Dietary Evaluation Review Comments: 1) [facility] + Renal specific 60gm as medically feasible 2) Refer to CDE on DC 3) Continue current plan of care Expected Outcomes/Goals: To meet 75% estimated needs fu 2-3 days TYRELL TAVAREZ RESIDENT February 27, 2025 08:53
--- NOTE | 2025-02-27 12:08 | DVH ---
RIGHT Upper Extremity Venous Duplex Clinical History: edema Comparison: US LT UPPER DVT on DOS: 02/26/25 Findings: Duplex Doppler evaluation of the venous system of the RIGHT lower neck and upper extremity including color Doppler and spectral/pulsed waveform analysis was performed. The internal jugular vein demonstrates appropriate compressibility and waveform variability. The subclavian vein is patent on color Doppler evaluation without intraluminal thrombus and demonstra alba waveform variability. The visualized portion of the brachiocephalic vein is patent on color Doppler evaluation without intr aluminal thrombus and demonstrates waveform variability. The axillary vein demonstrates appropriate compressibility and waveform variability. The brachial veins demonstrate appropriate compressibility and patency on Doppler evaluation. The basilic vein demonstrates appropriate compressibility and patency on Doppler evaluation. The cephalic vein demonstrates thrombus Impression: Thrombus in right cephalic vein. If clinical concern/symptoms persist or worsen, short-interval follow-up study is suggested.
[2025-02-27 12:38] LABS: Urine Bacteria FEW /hpf (None Seen); Urine Blood TRACE /uL (Negative); Urine Clarity Clear (Clear); Urine Color Yellow (Yellow); Urine Mucus FEW (None Seen); Urine Protein, UAD Negative (Negative); Urine Specific Gravity 1.009 (1.001-1.035); Urine Squamous Epithelial Cell None Seen /hpf (<5); Urine Urobilinogen Normal (Negative); Urine WBC 9 /HPF (0-3)
--- NOTE | 2025-02-27 13:50 | DVHPN2 ---
Progress Note Date Seen: February 27, 2025 Has the PT tested + for MRSA If YES, has PT been informed?: No Medical Necessity Reason Pt with a Central, PICC or Fol: Yes The following are medically ne: Central Line, Lopez Catheter Objective vital signs Vital Sign Date Time Temp Pulse Resp B/P (MAP) Pulse Ox O2 Delivery O2 Flow Rate FiO2 02/27/25 11:34 76 26 119/53 (75 94 30 02/27/25 10:00 Mechanical Ventilator+ 02/27/25 08:15 98.7 98.7 Total Intake and Output 02/26/25 02/26/25 02/27/25 15:00 23:00 07:00 Intake Total 934.891 ml 882.614 ml 754.512 ml Output Total 2525 ml 440 ml Balance 934.891 ml -1642.386 ml 314.512 ml medications Current Medications Medications Dose Ordered Sig/Tanya Route Start Time Stop Time Status Last Admin Dose Admin Amino Acids 0 ml @ 0 mls/hr PER PHARMACY IV 02/15/25 14:00 Pantoprazole Sodium 40 mg BID IV 02/18/25 09:45 02/27/25 09:51 40 MG Vasopressin 20 units/Sodium Chloride 100 ml @ 9 mls/hr Q11H7M IV 02/19/25 01:15 02/27/25 09:52 9 MLS/HR Midazolam HCl 50 ml @ 1 mls/hr Q24H IV 02/19/25 08:30 02/26/25 01:17 7 MLS/HR Fentanyl Citrate 250 ml @ 2.5 mls/hr Q24H IV 02/19/25 08:30 02/26/25 03:47 27.5 MLS/HR Vancomycin HCl 0 ml @ 0 mls/hr UD IV 02/19/25 16:15 Insulin Glargine 20 units QAM SC 02/21/25 07:00 02/27/25 06:28 20 UNITS Octreotide Acetate 100 mcg TID SUBCUT 02/20/25 14:00 02/27/25 05:12 100 MCG Phenylephrine HCl 80 mg/Sodium Chloride 250 ml @ 7.5 mls/hr Q24H IV 02/20/25 18:00 02/22/25 04:32 24.375 MLS/HR Acetaminophen 650 mg Q6HP PRN TN 02/21/25 04:15 02/26/25 17:33 650 MG Micafungin Sodium 100 mg/Sodium Chloride 100 ml @ 100 mls/hr DAILY IV 02/21/25 10:00 02/26/25 10:26 100 MLS/HR Diagnostic Test (Pha) 1 strip Q6HR 02/21/25 12:00 02/27/25 12:05 1 STRIP Insulin Human Regular FOLLOW SLIDING SCALE Q6HR SC 02/21/25 12:00 02/27/25 11:57 2 UNITS Dextrose 50 ml UD IV 02/21/25 12:00 Meropenem 50 ml @ 17 mls/hr DAILY IV 02/24/25 10:00 02/27/25 10:08 17 MLS/HR Propofol 100 ml @ 3.345 mls/ hr Q24H IV 02/25/25 09:00 02/26/25 22:43 3.345 MLS/HR Bumetanide 12.5 mg/Miscellaneous 50 ml @ 2 mls/hr Q24H IV 02/25/25 15:00 02/26/25 20:17 2 MLS/HR Vancomycin HCl 150 ml @ 150 mls/hr Q24H IV 02/26/25 15:00 02/26/25 14:53 150 MLS/HR Fat Emulsion Intravenous 100 ml/Sodium Acetate 40 meq/Potassium Acetate 60 meq/ Calcium Gluconate 2.3 meq/Magnesium Sulfate 12 meq/ Multivitamins 10 ml/Insulin Human Regular 40 units/ Amino Acids/ Dextrose/Purified Water 1,168.3462 ml @ 48 mls/hr [id number] IV 02/26/25 22:00 02/27/25 21:59 02/26/25 22:29 48 MLS/HR Norepinephrine Bitartrate 32 mg/ Sodium Chloride 250 ml @ 0.469 mls/ hr Q24H IV 02/27/25 07:45 Fat Emulsion Intravenous 150 ml/Sodium Acetate 40 meq/Magnesium Sulfate 10 meq/ Multivitamins 10 ml/Insulin Human Regular 15 units/ Amino Acids/ Dextrose 1,032.65 ml @ 43 mls/hr Q24H1M IV 02/27/25 22:00 02/28/25 21:59 laboratory and microbiology Laboratory Tests 02/27/25 03:00 Test 02/27/25 03:00 Range/Units Serum Glucose 165 H 74-106 mg/dL Microbiology Date/Time Source Procedure Growth Status 02/26/25 14:15 Catheter Site Aerobic Culture - Preliminary Resulted 02/21/25 16:10 Voided Urine Urine Culture - Preliminary Resulted 02/21/25 15:00 Blood Blood Culture - Final NO GROWTH AFTER 5 DAYS OF INCUBATION. Complete 02/21/25 11:45 Sputum Gram Stain - Final Resulted 02/21/25 11:45 Sputum Respiratory Culture - Preliminary Resulted Problem List/Assessment/Plan Problem List/Assessment/Plan INTUBATED HEMODYNAMICALLY LABILE ON VASOPRESSOR SUPPORT ABD SOFT LESS DISTENDED SMALL BM DRAIN 600 CC SEROSANGUINEOUS WBC WNL KEEP NPO NG NURSE AND FAMILY AT BEDSIDE CONTINUE CLOSE OBSERVATION CONDITION REMAINS CRITICAL PT/PTT CONSIDER FFP INDICATED Plan discussed with: Other Dietary Evaluation Review Comments: 1) Advance to [facility] 60gm + Renal specific 60gm as medically feasible 2) Refer to CDE on DC 3) Continue current plan of care Expected Outcomes/Goals: To meet 75% estimated needs fu 2-3 days MARIANA PENA MD February 27, 2025 13:50
[2025-02-27] MEDS: GASTROGRAFIN 120 ML SOL ONE (15:29)
[2025-02-27] MEDS: NOREPINEPHRINE BITARTRATE 32 MG in SODIUM CHL 0.9% 218 ML IV SCH (16:22)
--- NOTE | 2025-02-27 19:20 | DVHPNRES ---
Progress Note Date Seen: February 27, 2025 Resident Creating Document: FEDERICO CLARKE RESIDENT Has the PT tested + for MRSA If YES, has PT been informed?: No Medical Necessity Reason Pt with a Central, PICC or Fol: Yes The following are medically ne: Central Line, Lopez Catheter Subjective Review of Systems This is a 69-year-old male patient with past medical history of recurrent admissions due to hepatic encephalopathy secondary to alcoholic liver cirrhosis, hyperammonemia, history of 2 [place] 30 years back, CKD 3B, diabetes mellitus type 2 for 15 years, heart failure with preserved ejection fraction at 60%, colonoscopy status post polypectomy in 2019, paroxysmal atrial fibrillation, splenomegaly, Patrizia UTI in 02/2024, pneumonia status post intubation in 2018, hypertension and hyperlipidemia who presented to the ER with the chief complaint of dizziness and abdominal pain for the past 4x days. Patient reports that on 02/02 he was helping his son, and was working outside in the sun when he experienced dizziness but did not experience any fall, syncope, confusion. Patient since worsening abdominal distention, and diffuse lower abdominal pain. Reports last bowel movement was on 02/03, says that his abdomen was bloated and therefore he induced vomiting himself denies nausea or vomiting. Denies disorientation and confusion during the past week. Reports compliance to lactulose 30 daily. Patient seen and examined at bedside. 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 Currently intubated and mechanically ventilated. FiO2 30%, peep 5, Tidal volume 500 ml and RR 24. S/P Exploratory laparotomy with bowel resection and anastomosis day 9. Objective vital signs Vital Sign Date Time Temp Pulse Resp B/P (MAP) Pulse Ox O2 Delivery O2 Flow Rate FiO2 02/27/25 18:20 75 24 101/46 (64 95 30 02/27/25 18:00 Mechanical Ventilator+ 02/27/25 08:15 98.7 98.7 Total Intake and Output 02/26/25 02/26/25 02/27/25 15:00 23:00 07:00 Intake Total 934.891 ml 882.614 ml 754.512 ml Output Total 2525 ml 440 ml Balance 934.891 ml -1642.386 ml 314.512 ml medications Current Medications Medications Dose Ordered Sig/Tanya Route Start Time Stop Time Status Last Admin Dose Admin Amino Acids 0 ml @ 0 mls/hr PER PHARMACY IV 02/15/25 14:00 Pantoprazole Sodium 40 mg BID IV 02/18/25 09:45 02/27/25 09:51 40 MG Vasopressin 20 units/Sodium Chloride 100 ml @ 9 mls/hr Q11H7M IV 02/19/25 01:15 02/27/25 09:52 9 MLS/HR Midazolam HCl 50 ml @ 1 mls/hr Q24H IV 02/19/25 08:30 02/26/25 01:17 7 MLS/HR Fentanyl Citrate 250 ml @ 2.5 mls/hr Q24H IV 02/19/25 08:30 02/26/25 03:47 27.5 MLS/HR Vancomycin HCl 0 ml @ 0 mls/hr UD IV 02/19/25 16:15 Insulin Glargine 20 units QAM SC 02/21/25 07:00 02/27/25 06:28 20 UNITS Octreotide Acetate 100 mcg TID SUBCUT 02/20/25 14:00 02/27/25 16:38 100 MCG Phenylephrine HCl 80 mg/Sodium Chloride 250 ml @ 7.5 mls/hr Q24H IV 02/20/25 18:00 02/22/25 04:32 24.375 MLS/HR Acetaminophen 650 mg Q6HP PRN FL 02/21/25 04:15 02/26/25 17:33 650 MG Micafungin Sodium 100 mg/Sodium Chloride 100 ml @ 100 mls/hr DAILY IV 02/21/25 10:00 02/27/25 16:23 100 MLS/HR Diagnostic Test (Pha) 1 strip Q6HR 02/21/25 12:00 02/27/25 17:57 1 STRIP Insulin Human Regular FOLLOW SLIDING SCALE Q6HR SC 02/21/25 12:00 02/27/25 18:01 4 UNITS Dextrose 50 ml UD IV 02/21/25 12:00 Meropenem 50 ml @ 17 mls/hr DAILY IV 02/24/25 10:00 02/27/25 10:08 17 MLS/HR Propofol 100 ml @ 3.345 mls/ hr Q24H IV 02/25/25 09:00 02/26/25 22:43 3.345 MLS/HR Bumetanide 12.5 mg/Miscellaneous 50 ml @ 2 mls/hr Q24H IV 02/25/25 15:00 02/26/25 20:17 2 MLS/HR Vancomycin HCl 150 ml @ 150 mls/hr Q24H IV 02/26/25 15:00 02/27/25 15:00 150 MLS/HR Fat Emulsion Intravenous 100 ml/Sodium Acetate 40 meq/Potassium Acetate 60 meq/ Calcium Gluconate 2.3 meq/Magnesium Sulfate 12 meq/ Multivitamins 10 ml/Insulin Human Regular 40 units/ Amino Acids/ Dextrose/Purified Water 1,168.3462 ml @ 48 mls/hr [id number] IV 02/26/25 22:00 02/27/25 21:59 02/26/25 22:29 48 MLS/HR Norepinephrine Bitartrate 32 mg/ Sodium Chloride 250 ml @ 0.469 mls/ hr Q24H IV 02/27/25 07:45 02/27/25 16:22 12.188 MLS/HR Fat Emulsion Intravenous 150 ml/Sodium Acetate 40 meq/Magnesium Sulfate 10 meq/ Multivitamins 10 ml/Insulin Human Regular 15 units/ Amino Acids/ Dextrose 1,032.65 ml @ 43 mls/hr Q24H1M IV 02/27/25 22:00 02/28/25 21:59 Examination Physical exam: General: RASS -3, afebrile, mucosae are moist Cardiovascular: Normal S1 and S2. No murmurs, gallops or rubs Respiratory: Mechanically assisted ventilation, equal bilateral airway entree. Bilateral crackles Abdomen: Soft, hypoactive bowel sounds, no organomegaly, no masses. Bloody serosanguineous discharge coming out from the lower part of the suture,LISA drain, with serosanguineous discharge 325 mL in last 12 hours MSK/skin: Mobilization of limbs cannot be evaluated. Skin is dry and warm. Bilateral edema +. Neurological: Orientation cannot be assessed. No apparent motor no sensitive deficits. Pupils are isocoric and reactive laboratory and microbiology Laboratory Tests 02/27/25 03:00 Test 02/27/25 03:00 Range/Units Serum Glucose 165 H 74-106 mg/dL Microbiology Date/Time Source Procedure Growth Status 02/26/25 14:15 Catheter Site Aerobic Culture - Preliminary Resulted 02/21/25 16:10 Voided Urine Urine Culture - Preliminary Resulted 02/21/25 15:00 Blood Blood Culture - Final NO GROWTH AFTER 5 DAYS OF INCUBATION. Complete 02/21/25 11:45 Sputum Gram Stain - Final Resulted 02/21/25 11:45 Sputum Respiratory Culture - Preliminary Resulted Labs and/or images reviewed: Labs reviewed by me, Image(s) reviewed by me Problem List/Assessment/Plan Problem List/Assessment/Plan Assessment and plan: NEURO: Acute metabolic encephalopathy Hyperammonemia On mechanical ventilation RASS score: -3 CARDIOVASCULAR: Possible acute on chronic diastolic heart failure Paroxysmal atrial fibrillation with secondary hypercoagulable state, on amiodarone drip - Echo on 02/19 revealed lvef 65% .moderate LVH ,septal hypertrophy, normal RV function, RV enlarged mild left atrium enlarged - Blood culture is positive for fungus - Echo on 02/22/25 showed EF 70% and no valve abnormalities noted. 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 The distal small bowel loops are relatively nondilated. There is mesenteric edema and stranding as well as small bowel wall thickening. These findings are suggestive of at least a partial small bowel obstruction. Cirrhotic Morphology liver with sequela portal hypertension including extensive perisplenic varices. Small amount of ascites fluid which may be secondary to the underlying cirrhosis and/or small bowel obstruction. - Gastrografin small bowel series on 02/14/25 showed Contrast only noted in the stomach none in the small bowel. Persistent gaseous distention of the small bowel. - S/P exploratory laparotomy with small-bowel resection and anastomosis, day 8 - Ammonia dropped down to 37 and bilirubin is trending down - Ordered Gastrografin small bowel series today GENITOURINARY: Acute kidney injury, likely hemodynamic mediated etiology and possible ATN requiring hemodialysis Acute complicated cystitis Uremic encephalopathy Rule out urinary obstruction Anion gap metabolic acidosis likely due to lactic acidosis and kidney impairment - Patient underwent HD on 02/22 and 2.3L ultrafiltration removed - U/O in last 12 hours 675 mL - Urine output is progressively improved , Nephrology recommended to remove left IJ Darrick catheter and catheter tip was sent for culture - Discontinued IV albumin as patient seems volume overloaded. - Discontinued dopamine drip because of increased heart rate. - Patient is on IV vancomycin as per pharmacy, IV meropenem 500 mg q.12 hours and IV micafungin 100 mg daily. ENDOCRINE: Type 2 diabetes mellitus, hemoglobin A1c 7.2 on 01/30 - Moderate sliding scale of insulin - Lantus 20 unit at [facility] METABOLIC: Morbid obesity, BMI 38 kg / m2 Severe protein calorie malnutrition, albumin 2 HEME: Thrombocytopenia and coagulopathy likely due to cirrhosis Bilateral SVT of cephalic vein in upper arm INFECTIOUS DISEASE: Sepsis with septic shock secondary to bowel ischemia likely due to SBO versus mesenteric vein thrombosis Lactic acidosis secondary to cirrhosis and bowel ischemia - Blood culture demonstrated budding yeast and culture from abdominal abscess showed Enterococcus - blood culture showed no growth in 24 hours of incubation and urine culture demonstrated yeast - Patient is on IV vancomycin as per pharmacy, IV meropenem 500 mg q.12 hours and IV micafungin 100 mg daily. DIET: NPO, TPN per pharmacy DVT prophylax: SCD GI prophylaxis: Protonix Bowel regimen: Code status: Full code LINES/DRAINS/ACCESS: ETT: Intubated on 02/18/25 IV access: Right femoral central line with triple-lumen placed on 0 02/21/25. Drips: Norepinephrine, Vasopresin, Amio, propofol, Versed, fentanyl Lopez catheter: placed on 02/21/25 DISPOSITION: ICU Patient's status discussed with Daughter, vision care associate time spent more than 41 minutes, including patient care, chart review, and updating the family. Excluding any procedures. Case discussed with Dr. Vasquez Plan discussed with: Other (Son, RN) My Orders My Orders Orders - FEDERICO CLARKE RESIDENT Procedure Category Date Status Time Communication Order ORDERS 02/26/25 Transmitted 19:22 Sodium Chl 0.9% PHA 02/27/25 In Process (Ns... 07:45 Rt Upper Dvt US 02/27/25 Resulted 10:43 Wound Culture W/ Gs GRECIA 02/27/25 In Process 13:14 Dietary Evaluation Review Comments: 1) Advance to [facility] 60gm + Renal specific 60gm as medically feasible 2) Refer to CDE on DC 3) Continue current plan of care Expected Outcomes/Goals: To meet 75% estimated needs fu 2-3 days Date of Service: February 28, 2025 Billing Provider: WISAM VASQUEZ MD Common Visit Codes: 20389-[id number] CARE 30-74 MIN FEDERICO CLARKE RESIDENT February 27, 2025 19:20 WISAM VASQUEZ MD February 28, 2025 15:47
--- NOTE | 2025-02-27 20:17 | DVH ---
Procedure: XY SMALL BOWEL SERIES-W GASTROGRA Exam Date: 02/27/2025 03:46 PM Reason for study/Clinical History: Constipation Comparison Study: XY SMALL BOWEL SERIES-W GASTROGRA on DOS: 02/14/25, XY SMALL BOWEL SERIES-W GASTROGR A on DOS: 02/08/25 Technique: Single contrast small bowel series performed. Fluoroscopy time: Minutes seconds Findings: Initial rivet hammer machine operator view of the abdomen and pelvis appears demonstrates no acute process. Nasogastric tube with the tip in the stomach. Contrast is identified within the colon by 2 hours. This represents a normal small bowel transit silvino e. Small bowel loops are normal in size. Normal mucosal pattern. No evidence of small bowel obstructi on, stricture, or mucosal abnormality. The terminal ileum is well visualized and is unremarkable. Midline skin broderick from recent postop. T here are surgical broderick seen in the right lower quadrant Drainage catheter seen in the right lower pelvis. IMPRESSION: 1. Resolving adynamic ileus.
--- NOTE | 2025-02-27 21:35 | DVHPN2 ---
Progress Note - Dictate Date Seen: February 27, 2025 Has the PT tested + for MRSA If YES, has PT been informed?: No Medical Necessity Reason Pt with a Central, PICC or Fol: Yes The following are medically ne: Central Line, Lopez Catheter Subjective 69-year-old male postop day 89S/P laparotomy with resection of small bowel for focal twisting and mesenteric ischemia and recurrent bowel obstruction and distention Pt has 69 y o male wth history of hepatic encephalopathy secondary to alcoholic liver cirrhosis, hyperammonemia, history of 2 [place] 30 years back, CKD 3B, diabetes mellitus type 2, heart failure with preserved ejection fraction at 60%, Patient is currently intubated sedated ; On FiO2 of 30% with a PEEP of five He is hemodynamically more stable and is sedation and pressors are being weaned off No active GI bleeding is reported today Labs are improving vital signs Vital Sign Date Time Temp Pulse Resp B/P (MAP) Pulse Ox O2 Delivery O2 Flow Rate FiO2 02/27/25 20:30 78 27 146/55 (85) 94 99/45 (63) 02/27/25 20:00 100.5 100.5 02/27/25 18:20 30 02/27/25 18:00 Mechanical Ventilator+ Total Intake and Output 02/26/25 02/26/25 02/27/25 15:00 23:00 07:00 Intake Total 934.891 ml 882.614 ml 754.512 ml Output Total 2525 ml 440 ml Balance 934.891 ml -1642.386 ml 314.512 ml medications Current Medications Medications Dose Ordered Sig/Tanya Route Start Time Stop Time Status Last Admin Dose Admin Amino Acids 0 ml @ 0 mls/hr PER PHARMACY IV 02/15/25 14:00 Pantoprazole Sodium 40 mg BID IV 02/18/25 09:45 02/27/25 09:51 40 MG Vasopressin 20 units/Sodium Chloride 100 ml @ 9 mls/hr Q11H7M IV 02/19/25 01:15 02/27/25 09:52 9 MLS/HR Midazolam HCl 50 ml @ 1 mls/hr Q24H IV 02/19/25 08:30 02/26/25 01:17 7 MLS/HR Fentanyl Citrate 250 ml @ 2.5 mls/hr Q24H IV 02/19/25 08:30 02/26/25 03:47 27.5 MLS/HR Vancomycin HCl 0 ml @ 0 mls/hr UD IV 02/19/25 16:15 Insulin Glargine 20 units QAM SC 02/21/25 07:00 02/27/25 06:28 20 UNITS Octreotide Acetate 100 mcg TID SUBCUT 02/20/25 14:00 02/27/25 16:38 100 MCG Phenylephrine HCl 80 mg/Sodium Chloride 250 ml @ 7.5 mls/hr Q24H IV 02/20/25 18:00 02/22/25 04:32 24.375 MLS/HR Acetaminophen 650 mg Q6HP PRN ME 02/21/25 04:15 02/26/25 17:33 650 MG Micafungin Sodium 100 mg/Sodium Chloride 100 ml @ 100 mls/hr DAILY IV 02/21/25 10:00 02/27/25 16:23 100 MLS/HR Diagnostic Test (Pha) 1 strip Q6HR 02/21/25 12:00 02/27/25 17:57 1 STRIP Insulin Human Regular FOLLOW SLIDING SCALE Q6HR SC 02/21/25 12:00 02/27/25 18:01 4 UNITS Dextrose 50 ml UD IV 02/21/25 12:00 Meropenem 50 ml @ 17 mls/hr DAILY IV 02/24/25 10:00 02/27/25 10:08 17 MLS/HR Propofol 100 ml @ 3.345 mls/ hr Q24H IV 02/25/25 09:00 02/26/25 22:43 3.345 MLS/HR Bumetanide 12.5 mg/Miscellaneous 50 ml @ 2 mls/hr Q24H IV 02/25/25 15:00 02/26/25 20:17 2 MLS/HR Vancomycin HCl 150 ml @ 150 mls/hr Q24H IV 02/26/25 15:00 02/27/25 15:00 150 MLS/HR Fat Emulsion Intravenous 100 ml/Sodium Acetate 40 meq/Potassium Acetate 60 meq/ Calcium Gluconate 2.3 meq/Magnesium Sulfate 12 meq/ Multivitamins 10 ml/Insulin Human Regular 40 units/ Amino Acids/ Dextrose/Purified Water 1,168.3462 ml @ 48 mls/hr [id number] IV 02/26/25 22:00 02/27/25 21:59 02/26/25 22:29 48 MLS/HR Norepinephrine Bitartrate 32 mg/ Sodium Chloride 250 ml @ 0.469 mls/ hr Q24H IV 02/27/25 07:45 02/27/25 16:22 12.188 MLS/HR Fat Emulsion Intravenous 150 ml/Sodium Acetate 40 meq/Magnesium Sulfate 10 meq/ Multivitamins 10 ml/Insulin Human Regular 15 units/ Amino Acids/ Dextrose 1,032.65 ml @ 43 mls/hr Q24H1M IV 02/27/25 22:00 02/28/25 21:59 objective General: Well-built, obese, slight scleral icterus, mucosae are moist intubated sedated Cardiovascular: Regular S1 and S2 rrr trace bilateral pedal edema Respiratory: Normal B/L air entry on room air. Clear lung sounds on auscultation Abdomen: Soft, dressing is dry, absent bowel sounds, no rebound tenderness, no organomegaly, no masses; well-healed supraumbilical midline scar Neurological: No motor, no sensitive deficits, normal speech. Pupils are isocoric and reactive. Psych/Mental Status: A/Ox3 laboratory and microbiology Laboratory Tests 02/27/25 03:00 Test 02/27/25 03:00 Range/Units Serum Glucose 165 H 74-106 mg/dL Problems(with codes): (1) Mesenteric ischemia (2) Small bowel obstruction (3) Altered level of consciousness (4) Acute renal insufficiency (5) Ileus (6) Cirrhosis of liver (7) GERD (gastroesophageal reflux disease) (8) UTI (urinary tract infection) (9) Lactic acidosis (10) Hyperkalemia (11) Hepatic encephalopathy Prognosis Plan Discuss with surgical consult if patient can be started on trickle tube feedings lactulose 30 mL via NG tube if allowed by surgical consult Patient has moved his bowels Continue to monitor labs including his liver enzymes and leukocytosis Check IV lines and sources of infection CPAP trial and Precedex when more stable Dietary Evaluation Review Comments: 1) Advance to [facility] 60gm + Renal specific 60gm as medically feasible 2) Refer to CDE on DC 3) Continue current plan of care Expected Outcomes/Goals: To meet 75% estimated needs fu 2-3 days Plan discussed with: Other (Dr Mata) ZENAIDA PENA MD February 27, 2025 21:35
[2025-02-27] MEDS: TPN PER PHARMACY IV NR (22:26)
[2025-02-28] VITALS (85 sets, daily range): BP systolic 25–171; BP diastolic 12–90; PULSE 46–136; RESP 25–37; TEMP 96.4–99; O2SAT 79–100
[2025-02-28 00:43] LABS: Lactic Acid w/Reflex 5.9 mmol/L (0.4-2.0)
[2025-02-28] MEDS ORDERED: SODIUM CHLORIDE 0.9% 1,000 ML IV ONE (01:15)
[2025-02-28] MEDS: EPINEPHrine HCL 250 ML IV SCH (01:35)
--- NOTE | 2025-02-28 01:36 | DVH ---
CLINICAL HISTORY: DARK DRAININAGE LEAKING FROM INCISION SITE AND INTO LISA DRAIN TECHNIQUE: CT of the abdomen and pelvis was performed without intravenous contrast. This exam was per formed according to our departmental dose optimization program. Up-to-date CT equipment and radiation dose reduction techniques are utilized as appropriate. CTDI: 27.46 DLP: 1495.59 WID: COMPARISON: CT CT AB PEL WO CON-NO ORAL OR IV on DOS: 02/15/25, FINDINGS: Lower Thorax: Normal-sized heart. At least mild calcified coronary artery disease. Moderate dependen t consolidations of the bilateral lower lobes. Liver and Biliary system: Small cirrhotic liver. Streak artifact through the liver limits evaluation of the parenchyma. No definite hepatic lesion. There is intermediate density layering in the gallblad jimena. No biliary ductal dilatation. There are portosystemic collateral vessels. Spleen: Mild splenomegaly. Adrenal Glands and Kidneys: Normal adrenal glands. There is excreted contrast in the bilateral renal collecting systems. There is no hydronephrosis or nephrolithiasis. There is nonspecific bilateral per inephric stranding. Pancreas and Retroperitoneum: Mild pancreatic atrophy. No definite retroperitoneal lymphadenopathy. Aorta and Major Vessels: Aortoiliac vessels are normal in caliber containing mild calcified atheroscl erotic plaque. Bowel, Mesentery and Peritoneal space: There is contrast throughout the small and large bowel loops. Prior appendectomy. There is extraluminal contrast in the peritoneal space layering dependently as we ll is in the nondependent anterior abdomen and also in the right abdomen. There is also contrast ext ending through the midline laparotomy incision.. There is wall thickening throughout multiple small bowel loops. There is diffuse wall thickening of the large bowel which is decompressed. There is free intraperitoneal air. There is a small extraluminal fluid and gas collection adjacent to a left mid t o lower abdominal small bowel loop which is ill-defined though measures a proximally 5.3 cm on series 2, image 58. There is a right abdominal approach drain with the tip of the drain terminating in the left abdomen in the upper pelvis. Mesenteric venous congestion and mild ascites. Pelvis: The urinary bladder is decompressed about a Lopez catheter. There is no pelvic lymphadenopath y. There is a right femoral central venous catheter which is within the right external iliac vein. Abdominal wall and Osseous Structures: There is body wall edema. There are small fat containing bilat eral inguinal hernias. Prior right of midline laparotomy which contains contrast. Multilevel lower t horacic and lumbar spondylosis. IMPRESSION: 1. Extraluminal contrast is seen within the peritoneal space which layers dependently and is also see n non dependently in the anterior abdomen and right abdomen. Free intraperitoneal air. Findings Conc erning for visceral perforation. Correlate with any possible recent surgery. 2. Possible explanation for the nondependent contrast is a developing abscess given that it is nondep endent. 3. A small extraluminal fluid and gas collection which is ill-defined next to small bowel loops in th e left mid to lower abdomen likely a developing abscess. 4. Circumferential wall thickening throughout small and large bowel loops which could be infectious o r inflammatory enterocolitis. 5. Cirrhosis and portal hypertension with portosystemic collateral vessels, mild splenomegaly, and as cites. 6. Dependent moderate bilateral lower lobe consolidations which could be atelectasis versus pneumonia . 7. Right abdominal approach surgical drain which terminates in the left pelvis.
[2025-02-28 03:52] LABS: Basophils # (auto) 0 10 ^3/uL (0-0.2); Basophils % (auto) 0.4 % (0.0-2.0); Eosinophils # (auto) 0.2 10 ^3/uL (0-0.8); Eosinophils % (auto) 1.9 % (0.0-7.0); Hematocrit 36.4 % (41.0-53.0); Hemoglobin 11.7 g/dL (13.5-17.5); Lymphocytes # (auto) 0.4 10 ^3/uL (0.4-5.4); Lymphocytes % (auto) 4.4 % (10.0-50.0); Mean Corpuscular Hemoglobin 31.3 pg (28.0-32.0); Mean Corpuscular Hgb Conc. 32.3 g/dL (32.0-36.0); Mean Corpuscular Volume 97.1 fL (80.0-100.0); Monocytes # (auto) 0.6 10 ^3/uL (0-1.3); Monocytes % (auto) 6.1 % (0.0-12.0); Neutrophils # (auto) 8.7 10 ^3/uL (1.6-8.6); Neutrophils % (auto) 87.2 % (37.0-80.0); Platelet Count (auto) 337 10^3/uL (140-450); Red Blood Cells 3.75 10^6/uL (4.5-5.90); Red Cell Distribution Width 24.4 % (11.8-14.3); White Blood Cell 9.9 10^3/uL (4.4-10.8)
[2025-02-28 04:11] LABS: Anion Gap 18 (5-15); Magnesium 2.3 mg/dL (1.6-2.6); Potassium 4.5 mmol/L (3.5-5.1); Sodium 144 mmol/L (136-145)
[2025-02-28 04:13] LABS: BUN/Creatinine Ratio 43.2 (10.0-20.0); INR 1.77 (0.9-1.15); Partial Thromboplastin Time 45.2 SEC (24.5-34.5); Prothrombin Time 17.7 sec (9.3-11.8)
[2025-02-28 04:18] LABS: Carbon Dioxide 16 mmol/L (20-31); Chloride 110 mmol/L (98-107); Glucose 115 mg/dL (74-106)
[2025-02-28 04:20] LABS: Alanine Aminotransferase 87 U/L (7-40); Alkaline Phosphatase 147 U/L (46-116); Aspartate Aminotransferase 220 U/L (13-40); Blood Urea Nitrogen 134 mg/dL (9-23); Calcium 8.1 mg/dL (8.7-10.4); Phosphorus 6.5 mg/dL (2.4-5.1)
[2025-02-28 04:21] LABS: Albumin 1.6 g/dL (3.2-4.8); Bilirubin, Total 12.9 mg/dL (0.2-1.0); Total Protein 4.6 g/dL (5.7-8.2); Triglycerides 201 mg/dL (< 150)
--- NOTE | 2025-02-28 05:06 | DVH ---
EXAM: XR Chest, 1 View CLINICAL INDICATION: mechanical ventilation TECHNIQUE: Frontal view of the chest. COMPARISON: XY CHEST PORTABLE on DOS: 02/27/25, XY CHEST PORTABLE on DOS: 02/26/25, XY CHEST PORTABLE on DOS: 02/25/25, XY CHEST PORTABLE on DOS: 02/24/25, XY CHEST PORTABLE on DOS: 02/23/25 FINDINGS: LUNGS AND PLEURAL SPACES: Pulmonary venous congestion. No consolidation. No pneumothorax. HEART: Unremarkable. No cardiomegaly. MEDIASTINUM: Unremarkable. Normal mediastinal contour. BONES/JOINTS: Unremarkable. No acute fracture. TUBES, LINES AND DEVICES: The endotracheal tube (ETT) is in satisfactory position. Enteric tube ti p in the stomach. OTHER FINDINGS: . . IMPRESSION: Pulmonary venous congestion.
[2025-02-28 05:33] LABS: Basophils % (manual) 0 (0.0-2.0); Blast Cells 0; Eosinophils % (manual) 0 (0-7); Myelocytes % 0; Promyelocytes % 0; Reactive Lymphocytes 0
[2025-02-28 05:35] LABS: Band Neutrophils % (manual) 9; Lymphocytes % (manual) 17 (10.0-50.0); Metamyelocytes % 3; Monocytes % (manual) 3 (0-12)
[2025-02-28 05:37] LABS: Anisocytosis Slight
[2025-02-28 05:39] LABS: Platelet Estimate Adequate
[2025-02-28 06:30] LABS: Base Excess -16.4 mmol/L (-2.0-3.0)
[2025-02-28] MEDS ORDERED: EPINEPHrine HCL 1 MG/10 ML SYRG ONE (06:41)
[2025-02-28] MEDS ORDERED: KETAMINE 50mg/ML 10ml Vial 10 ML ONE (06:41)
[2025-02-28] MEDS ORDERED: PHENYLEPHRINE HCL 10 MG/ML VL ONE (06:41)
[2025-02-28] MEDS ORDERED: ROCURONIUM 10MG/ML 10ML VIAL IV ONE (06:41)
[2025-02-28] MEDS ORDERED: SODIUM BICARB 8.4% 50Meq/50ml SYR Vial IV ONE (06:45)
--- NOTE | 2025-02-28 06:53 | DVHPN2 ---
Progress Note Date Seen: February 28, 2025 Has the PT tested + for MRSA If YES, has PT been informed?: No Medical Necessity Reason Pt with a Central, PICC or Fol: Yes The following are medically ne: Central Line, Lopez Catheter Objective vital signs Vital Sign Date Time Temp Pulse Resp B/P (MAP) Pulse Ox O2 Delivery O2 Flow Rate FiO2 02/28/25 06:30 80 32 132/61 (84) 92 51/38 (42) 02/28/25 06:10 45 02/28/25 06:00 Mechanical Ventilator+ 02/28/25 05:45 98.9 98.9 Total Intake and Output 02/27/25 02/27/25 02/28/25 15:00 23:00 07:00 Intake Total 590.510 ml 240.188 ml 0 ml Output Total 2652 ml 1800 ml Balance 590.510 ml -2411.812 ml -1800 ml medications Current Medications Medications Dose Ordered Sig/Tanay Route Start Time Stop Time Status Last Admin Dose Admin Amino Acids 0 ml @ 0 mls/hr PER PHARMACY IV 02/15/25 14:00 Pantoprazole Sodium 40 mg BID IV 02/18/25 09:45 02/27/25 22:24 40 MG Vasopressin 20 units/Sodium Chloride 100 ml @ 9 mls/hr Q11H7M IV 02/19/25 01:15 02/28/25 06:07 9 MLS/HR Midazolam HCl 50 ml @ 1 mls/hr Q24H IV 02/19/25 08:30 02/26/25 01:17 7 MLS/HR Fentanyl Citrate 250 ml @ 2.5 mls/hr Q24H IV 02/19/25 08:30 02/26/25 03:47 27.5 MLS/HR Vancomycin HCl 0 ml @ 0 mls/hr UD IV 02/19/25 16:15 Insulin Glargine 20 units QAM SC 02/21/25 07:00 02/28/25 06:13 20 UNITS Octreotide Acetate 100 mcg TID SUBCUT 02/20/25 14:00 02/28/25 06:08 100 MCG Phenylephrine HCl 80 mg/Sodium Chloride 250 ml @ 7.5 mls/hr Q24H IV 02/20/25 18:00 02/27/25 23:30 7.5 MLS/HR Acetaminophen 650 mg Q6HP PRN VT 02/21/25 04:15 02/26/25 17:33 650 MG Micafungin Sodium 100 mg/Sodium Chloride 100 ml @ 100 mls/hr DAILY IV 02/21/25 10:00 02/27/25 16:23 100 MLS/HR Diagnostic Test (Pha) 1 strip Q6HR 02/21/25 12:00 02/28/25 06:14 1 STRIP Insulin Human Regular FOLLOW SLIDING SCALE Q6HR SC 02/21/25 12:00 02/28/25 00:17 2 UNITS Dextrose 50 ml UD IV 02/21/25 12:00 Meropenem 50 ml @ 17 mls/hr DAILY IV 02/24/25 10:00 02/27/25 10:08 17 MLS/HR Propofol 100 ml @ 3.345 mls/ hr Q24H IV 02/25/25 09:00 02/26/25 22:43 3.345 MLS/HR Bumetanide 12.5 mg/Miscellaneous 50 ml @ 2 mls/hr Q24H IV 02/25/25 15:00 02/26/25 20:17 2 MLS/HR Vancomycin HCl 150 ml @ 150 mls/hr Q24H IV 02/26/25 15:00 02/27/25 15:00 150 MLS/HR Norepinephrine Bitartrate 32 mg/ Sodium Chloride 250 ml @ 0.469 mls/ hr Q24H IV 02/27/25 07:45 02/27/25 16:22 12.188 MLS/HR Fat Emulsion Intravenous 150 ml/Sodium Acetate 40 meq/Magnesium Sulfate 10 meq/ Multivitamins 10 ml/Insulin Human Regular 15 units/ Amino Acids/ Dextrose 1,032.65 ml @ 43 mls/hr Q24H1M IV 02/27/25 22:00 02/28/25 21:59 02/27/25 22:26 43 MLS/HR Epinephrine HCl 250 ml @ 7.5 mls/hr Q24H IV 02/28/25 01:15 02/28/25 01:35 7.5 MLS/HR laboratory and microbiology Laboratory Tests 02/28/25 03:18 Test 02/28/25 03:18 Range/Units Serum Glucose 115 H 74-106 mg/dL Microbiology Date/Time Source Procedure Growth Status 02/26/25 14:15 Catheter Site Aerobic Culture - Preliminary Resulted 02/21/25 16:10 Voided Urine Urine Culture - Preliminary Resulted 02/21/25 15:00 Blood Blood Culture - Final NO GROWTH AFTER 5 DAYS OF INCUBATION. Complete 02/21/25 11:45 Sputum Gram Stain - Final Resulted 02/21/25 11:45 Sputum Respiratory Culture - Preliminary Resulted Problem List/Assessment/Plan Problem List/Assessment/Plan INTUBATED HEMODYNAMICALLY LABILE ON VASOPRESSOR SUPPORT GOT CALLED BY THE NURSE EARLIER THIS AM PT MAXED OUT ON VASOPRESSOR SUPPORT GASTROGRAFIN STUDY NO INTESTINAL LEAK CT SCAN DONE INDICATED CONTRAST EXTRAVASATION BOWEL ISCHEMIA/PERFORATION NOT R/O WBC WNL URGENT SURGERY CONSIDERED AND RECOMMENDED BASED ON ANESTHESIA EVAL AND FAMILY DECISION NURSE AND FAMILY AT BEDSIDE SPOKE TO AND SON WITH HIGH RISK FOR SURGERY POSSIBILITY OF CARDIAC EVENT BEFORE, DURING OR AFTER SURGERY CONDITION REMAINS CRITICAL WITH MULTIORGAN FAILURE FAMILY CONSENTS FOR E LAP POSSIBLE BOWEL RESECTION, COLOSTOMY ALL QUESTIONS ANSWERED PT/PTT CONSIDER FFP INDICATED Plan discussed with: Spouse, Son, Other My Orders My Orders Orders - MARIANA PENA MD Procedure Category Date Status Time Frozen Plasma BBK 02/28/25 Logged 05:16 Dietary Evaluation Review Comments: 1) [facility] + Renal specific 60gm as medically feasible 2) Refer to CDE on DC 3) Continue current plan of care Expected Outcomes/Goals: To meet 75% estimated needs fu 2-3 days MARIANA PENA MD February 28, 2025 06:53
[2025-02-28] MEDS ORDERED: fentaNYL CITRATE 100 MCG/2 ML VL ONE (07:15)
--- NOTE | 2025-02-28 07:49 | PRN ---
Misceleneous Note Note Note Dr Herzog and I called the patient's and son to discuss current clinical situation and likely prognosis. We reiterated to the family that Mr Demetrio Castillo is in multi-organ system failure with no chance of his liver recovering. He is requiring aggressive blood pressure support and requiring dialysis and tra nsfusions to sustain his life. It is likely that he will not survive this surgery. It is likely that he will not survive this hospitalization. The family expressed understanding and had no further questions at this time. They wish to proceed with surgery. DEEPTI DEL CID MD February 28, 2025 07:49
--- NOTE | 2025-02-28 07:58 | PRN ---
Misceleneous Note Note Note Dr Lesia Herzog and I called the patient's and son to discuss the clinical situation and prognosis. We reiterated that Mr Demetrio Carbone is in multi-organ system failure and that is liver will not recover. He is requiring aggressive blood pressure support, artificial ventilation, dialysis and blood transfusions to sustain his life. He is unlikely to survive this operation. He is unlikely to survive this hospitalization. The family verbalized understanding and had no further questions at this time. They wish to proceed with surgery. DEEPTI DEL CID MD February 28, 2025 07:58
[2025-02-28] MEDS ORDERED: ceFAZolin 1GM VL ONE (08:15)
--- NOTE | 2025-02-28 08:45 | DVHOP2 ---
Operative Report [id number] R/O SBO /PERFORATION/ILEUS/BOWEL ISCHEMIA SEC TO MESENTERIC THROMBOSIS/ADENITIS E LAP BOWEL RESECTION BOWEL PERFORATION PROXIMAL TO INTACT ANASTOMOSIS POSSIBLY SEC TO ISCHEMIC ILEITIS SMALL BOWEL RESECTION OF POSSIBLE ISCHEMIC BOWEL CAUSING PERFORATION SURGEON DR Lesia PENA COUNCILMAN DR Rosalia MORRIS EBL 50 CC 2 DRAINS ANASTOMOSIS DEFERRED DUE TO NON RELIABILITY OF ONGOING BOWEL ISCHEMIA SECOND LOOK PLANNED BASED ON ONGOING EVAL FAMILY AND NURSING STAFF AWARE OF FINDINGS MARIANA PENA MD February 28, 2025 08:45
--- NOTE | 2025-02-28 09:35 | DVHOP ---
DATE OF SURGERY: 02/28/2025 PREOPERATIVE DIAGNOSES: Rule out bowel obstruction, rule out bowel perforation, bowel ischemia and enteritis. POSTOPERATIVE DIAGNOSES: Rule out bowel obstruction, rule out bowel perforation, bowel ischemia and enteritis. PROCEDURE: Exploratory laparotomy with small bowel resection and drainage of intraabdominal fluid collection with ascites. SURGEON: Tommie Herzog MD PROFESSOR OF PHYSICAL EDUCATION: Zachary Landeros MD ANESTHESIA: General ESTIMATED BLOOD LOSS: Close to 50 mL. DRAINS: Two drains were used. One drain on the right side was the previously placed drain, was repositioned and the new drain of the LISA drain was introduced on the left upper quadrant and from the left lower quadrant. The drains were placed after this laparotomy was carried out. DESCRIPTION OF PROCEDURE: The broderick were taken out from the previous surgery. The skin incision was opened up. The Vicryl suture was taken down. The fascial incision was opened up after the PDS suture was removed and then the abdomen was entered. Intestinal fluid was retrieved both from the right lower quadrant and the left lower quadrant, mostly it was in the right lower quadrant and also was located in the left upper quadrant. The right upper quadrant was not accessible because of dense adhesions. The small bowel was examined from the DJ flexure down to the ileocecal junction. The perforation was noted proximal to the anastomosis, and the anastomotic suture line also was very fragile; and because of the tissue handling, there was a potential for leakage in that location as well. It was then decided to do a bowel resection because of the potential for ischemia that had caused possibly the perforation as well as bowel motility not being ongoing. So, it was decided to do an urgent small bowel resection. A suitable spot was selected close to the distal jejunum and it was stapled across, making sure that the proximal portion of the jejunum was viable and the distal portion was then removed. Using the GI stapling device, the mesenteric tissue was taken down. Not a lot of mesenteric blood flow was noted, thereby confirming that there was mesenteric ischemia as well of major intensity. There was swelling as well. Mesenteric adenitis was noted as well. Etiology was not clear, but nonetheless the small bowel distal to the anastomosis as well as distal to the proximal perforated location from the anastomosis was identified and it was very close to the ileocecal junction. It was transected using the Endo DICK stapling device and the mesenteric tissue was then divided after that as well using the GI stapling device. The mesenteric tissue was secured with hemostasis with suturing at various locations and stapling was applied as well. With this being done, the consensus was between myself and Dr. Landeros that anastomosis would be very risky. The patient needed to be observed postoperatively. He was also very critically sick during the surgery and not to prolong the procedure, it was decided not to do any anastomosis at this time and if the condition of the patient allowed second exploration following this procedure, then that would be more amenable for possibility of a bowel anastomosis versus ileostomy versus colostomy. So, at this point, the small bowel was placed back into the abdomen and it remained viable all this time and so was the distal ileum. The large colon was not completely examined because of dense tissues and because of the intensity of the bleeding, because of his coagulopathy, it was decided to complete the procedure in this manner and irrigation was carried out in all 4 quadrants. The irrigation fluid was removed. Two drains were placed, as I mentioned, one for the right side and one for the left side, as I mentioned before, and they were secured in place using the silk sutures. Then after that, the sponge count, needle count was reported correct and with excellent hemostasis with SNoW coagulant applied in various locations, the closure was commenced. The PDS suture was used for the fascial closure and the skin incision was brought together using a stapling device. Dressing was applied. The patient tolerated the procedure well with no major cardiac events and was taken back to the ICU in a critical condition with the family being informed as well about the procedure as well. MD SREEKANTH Mabry/REYMUNDO/ROBER TID: [id number] RECEIPT: [id number] cc: Zachary Landeros MD,
--- NOTE | 2025-02-28 11:50 | DVHPN2 ---
Progress Note Date Seen: February 28, 2025 Has the PT tested + for MRSA If YES, has PT been informed?: No Medical Necessity Reason Pt with a Central, PICC or Fol: Yes The following are medically ne: Central Line, Lopez Catheter Subjective Review of Systems: Deferred Objective vital signs Vital Sign Date Time Temp Pulse Resp B/P (MAP) Pulse Ox O2 Delivery O2 Flow Rate FiO2 02/28/25 10:10 67 26 142/50 (80) 93 45 02/28/25 06:00 Mechanical Ventilator+ 02/28/25 05:45 98.9 98.9 Total Intake and Output 02/27/25 02/27/25 02/28/25 15:00 23:00 07:00 Intake Total 590.510 ml 327.251 ml 627.25 ml Output Total 2652 ml 1800 ml Balance 590.510 ml -2324.749 ml -1172.75 ml medications Current Medications Medications Dose Ordered Sig/Tanya Route Start Time Stop Time Status Last Admin Dose Admin Amino Acids 0 ml @ 0 mls/hr PER PHARMACY IV 02/15/25 14:00 Pantoprazole Sodium 40 mg BID IV 02/18/25 09:45 02/28/25 10:14 40 MG Vasopressin 20 units/Sodium Chloride 100 ml @ 9 mls/hr Q11H7M IV 02/19/25 01:15 02/28/25 06:07 9 MLS/HR Midazolam HCl 50 ml @ 1 mls/hr Q24H IV 02/19/25 08:30 02/26/25 01:17 7 MLS/HR Vancomycin HCl 0 ml @ 0 mls/hr UD IV 02/19/25 16:15 Insulin Glargine 20 units QAM SC 02/21/25 07:00 02/28/25 06:13 20 UNITS Octreotide Acetate 100 mcg TID SUBCUT 02/20/25 14:00 02/28/25 06:08 100 MCG Phenylephrine HCl 80 mg/Sodium Chloride 250 ml @ 7.5 mls/hr Q24H IV 02/20/25 18:00 02/27/25 23:30 7.5 MLS/HR Acetaminophen 650 mg Q6HP PRN [place] 02/21/25 04:15 02/26/25 17:33 650 MG Micafungin Sodium 100 mg/Sodium Chloride 100 ml @ 100 mls/hr DAILY IV 02/21/25 10:00 02/28/25 10:14 100 MLS/HR Diagnostic Test (Pha) 1 strip Q6HR 02/21/25 12:00 02/28/25 06:14 1 STRIP Insulin Human Regular FOLLOW SLIDING SCALE Q6HR SC 02/21/25 12:00 02/28/25 00:17 2 UNITS Dextrose 50 ml UD IV 02/21/25 12:00 Propofol 100 ml @ 3.345 mls/ hr Q24H IV 02/25/25 09:00 02/26/25 22:43 3.345 MLS/HR Bumetanide 12.5 mg/Miscellaneous 50 ml @ 2 mls/hr Q24H IV 02/25/25 15:00 02/26/25 20:17 2 MLS/HR Vancomycin HCl 150 ml @ 150 mls/hr Q24H IV 02/26/25 15:00 02/27/25 15:00 150 MLS/HR Norepinephrine Bitartrate 32 mg/ Sodium Chloride 250 ml @ 0.469 mls/ hr Q24H IV 02/27/25 07:45 02/27/25 16:22 12.188 MLS/HR Fat Emulsion Intravenous 150 ml/Sodium Acetate 40 meq/Magnesium Sulfate 10 meq/ Multivitamins 10 ml/Insulin Human Regular 15 units/ Amino Acids/ Dextrose 1,032.65 ml @ 43 mls/hr Q24H1M IV 02/27/25 22:00 02/28/25 21:59 02/27/25 22:26 43 MLS/HR Epinephrine HCl 250 ml @ 7.5 mls/hr Q24H IV 02/28/25 01:15 02/28/25 01:35 7.5 MLS/HR Fat Emulsion Intravenous 200 ml/Magnesium Sulfate 8 meq/ Multivitamins 10 ml/Insulin Human Regular 10 units/ Amino Acids/ Dextrose 1,112.1 ml @ 46 mls/hr [id number] IV 02/28/25 22:00 03/01/25 21:59 Meropenem 50 ml @ 17 mls/hr Q12H IV 02/28/25 22:00 Examination: GENERAL:Abnormal, LUNGS:Abnormal, CVS:Abnormal, ABDOMEN:Abnormal, SKIN:Abnormal laboratory and microbiology Laboratory Tests 02/28/25 03:18 Test 02/28/25 03:18 Range/Units Serum Glucose 115 H 74-106 mg/dL Microbiology Date/Time Source Procedure Growth Status 02/27/25 13:08 Abdomen Gram Stain - Final Resulted 02/27/25 13:08 Abdomen Wound Culture - Preliminary Resulted 02/21/25 16:10 Voided Urine Urine Culture - Preliminary Resulted 02/21/25 15:00 Blood Blood Culture - Final NO GROWTH AFTER 5 DAYS OF INCUBATION. Complete 02/21/25 11:45 Sputum Gram Stain - Final Complete 02/21/25 11:45 Sputum Respiratory Culture - Final Complete Problem List/Assessment/Plan Problem List/Assessment/Plan Admitted for abdominal pain found to have ileus Status post exploratory lap concerning for bowel ischemia Active issues Acute kidney injury hemodynamically mediated in the setting of shock Acute respiratory failure Septic shock Cirrhosis Metabolic encephalopathy Cirrhosis Bowel obstruction Metabolic acidosis Clinically not responding to diuretic therapy patient urine output has decreased significantly. At this time I discussed with son the probability of requiring resuming dialysis therapy. Family is aware and patient is high-risk for procedure and possible post dialysis or intra dialysis complications. In the interim start IV bicarbonate pushes Monitoring urinary output Strict Is&Os Maintain mean arterial pressure greater than 65 Rest of care as per primary medical team Critical care time spent 35 minutes including discussion with family Plan discussed with: Son Dietary Evaluation Review Comments: 1) Advance to [facility] 60gm + Renal specific 60gm as medically feasible 2) Refer to CDE on DC 3) Continue current plan of care Expected Outcomes/Goals: To meet 75% estimated needs fu 2-3 days Critical Care Time (mins): 35 ERYN SANTILLAN MD February 28, 2025 11:50
[2025-02-28] MEDS: SODIUM BICARB 8.4% 50Meq/50ml SYR Vial IV ONE (13:30)
[2025-02-28] MEDS ORDERED: SODIUM BICARB 50mEq/50ml Vial 150 ML in D5W 5% 1,000 ML IV SCH (15:45)
--- NOTE | 2025-02-28 17:22 | DVHPN2 ---
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, hyperammonemia, history of 2 AR 30 years back, CKD 3B, diabetes mellitus type 2, heart failure with preserved ejection fraction at 60% Pt was postop day 10 S/P laparotomy with resection of small bowel for focal twisting and mesenteric ischemia and recurrent bowel obstruction and distention Patient had to be rushed back to the OR this morning because of spontaneous perforation of a small bowel with leakage of intestinal contents Patient underwent exploratory laparotomy with small-bowel resection vital signs Vital Sign Date Time Temp Pulse Resp B/P (MAP) Pulse Ox O2 Delivery O2 Flow Rate FiO2 02/28/25 16:04 52 26 106/16 (46) 94 45 02/28/25 06:00 Mechanical Ventilator+ 02/28/25 05:45 98.9 98.9 Total Intake and Output 02/27/25 02/27/25 02/28/25 14:59 22:59 06:59 Intake Total 615.015 ml 365.439 ml 658.25 ml Output Total 2652 ml 1800 ml Balance 615.015 ml -2286.561 ml -1141.75 ml medications Current Medications Medications Dose Ordered Sig/Tanya Route Start Time Stop Time Status Last Admin Dose Admin Amino Acids 0 ml @ 0 mls/hr PER PHARMACY IV 02/15/25 14:00 Pantoprazole Sodium 40 mg BID IV 02/18/25 09:45 02/28/25 10:14 40 MG Vasopressin 20 units/Sodium Chloride 100 ml @ 9 mls/hr Q11H7M IV 02/19/25 01:15 02/28/25 06:07 9 MLS/HR Midazolam HCl 50 ml @ 1 mls/hr Q24H IV 02/19/25 08:30 02/26/25 01:17 7 MLS/HR Vancomycin HCl 0 ml @ 0 mls/hr UD IV 02/19/25 16:15 Insulin Glargine 20 units QAM SC 02/21/25 07:00 02/28/25 06:13 20 UNITS Phenylephrine HCl 80 mg/Sodium Chloride 250 ml @ 7.5 mls/hr Q24H IV 02/20/25 18:00 02/27/25 23:30 7.5 MLS/HR Acetaminophen 650 mg Q6HP PRN [place] 02/21/25 04:15 02/26/25 17:33 650 MG Micafungin Sodium 100 mg/Sodium Chloride 100 ml @ 100 mls/hr DAILY IV 02/21/25 10:00 02/28/25 10:14 100 MLS/HR Diagnostic Test (Pha) 1 strip Q6HR 02/21/25 12:00 02/28/25 12:20 1 STRIP Insulin Human Regular FOLLOW SLIDING SCALE Q6HR SC 02/21/25 12:00 02/28/25 00:17 2 UNITS Dextrose 50 ml UD IV 02/21/25 12:00 Propofol 100 ml @ 3.345 mls/ hr Q24H IV 02/25/25 09:00 02/26/25 22:43 3.345 MLS/HR Vancomycin HCl 150 ml @ 150 mls/hr Q24H IV 02/26/25 15:00 02/27/25 15:00 150 MLS/HR Norepinephrine Bitartrate 32 mg/ Sodium Chloride 250 ml @ 0.469 mls/ hr Q24H IV 02/27/25 07:45 02/28/25 12:44 14.063 MLS/HR Fat Emulsion Intravenous 150 ml/Sodium Acetate 40 meq/Magnesium Sulfate 10 meq/ Multivitamins 10 ml/Insulin Human Regular 15 units/ Amino Acids/ Dextrose 1,032.65 ml @ 43 mls/hr Q24H1M IV 02/27/25 22:00 02/28/25 21:59 02/27/25 22:26 43 MLS/HR Epinephrine HCl 250 ml @ 7.5 mls/hr Q24H IV 02/28/25 01:15 02/28/25 01:35 7.5 MLS/HR Fat Emulsion Intravenous 200 ml/Magnesium Sulfate 8 meq/ Multivitamins 10 ml/Insulin Human Regular 10 units/ Amino Acids/ Dextrose 1,112.1 ml @ 46 mls/hr [id number] IV 02/28/25 22:00 03/01/25 21:59 Meropenem 50 ml @ 17 mls/hr Q12H IV 02/28/25 22:00 Sodium Bicarbonate 150 ml/Dextrose 1,150 ml @ 100 mls/hr [id number] IV 02/28/25 15:45 objective General: Well-built, obese, slight scleral icterus, mucosae are moist intubated sedated Cardiovascular: Regular S1 and S2 rrr trace bilateral pedal edema Respiratory: Normal B/L air entry on room air. Clear lung sounds on auscultation Abdomen: Soft, dressing is dry, absent bowel sounds, no rebound tenderness, no organomegaly, no masses; well-healed supraumbilical midline scar Neurological: No motor, no sensitive deficits, normal speech. Pupils are isocoric and reactive. Psych/Mental Status: A/Ox3 laboratory and microbiology Laboratory Tests 02/28/25 03:18 Test 02/28/25 03:18 Range/Units Serum Glucose 115 H 74-106 mg/dL Problems(with codes): (1) Small bowel obstruction (2) Altered level of consciousness (3) Mesenteric ischemia (4) Acute renal insufficiency (5) Ileus (6) Cirrhosis of liver (7) S/P laparotomy Prognosis Plan Keep NPO NG tube to low intermittent suction IV antibiotics Postop care as per surgical consult Surgical consult and operative report reviewed There was a plan for possible relook laparotomy with anastomosis if the patient stabilizes Currently the prognosis remains very poor and guarded Dietary Evaluation Review Comments: 1) [facility] + Renal specific 60gm as medically feasible 2) Refer to CDE on DC 3) Continue current plan of care Expected Outcomes/Goals: To meet 75% estimated needs fu 2-3 days Plan discussed with: Other (Dr Lesia Herzog) ZENAIDA HERZOG MD February 28, 2025 17:22
--- NOTE | 2025-02-28 19:20 | DVHPNRES ---
Progress Note Date Seen: February 28, 2025 Resident Creating Document: FEDERICO CLARKE RESIDENT Has the PT tested + for MRSA If YES, has PT been informed?: No Medical Necessity Reason Pt with a Central, PICC or Fol: Yes The following are medically ne: Central Line, Lopez Catheter Subjective Review of Systems This is a 69-year-old male patient with past medical history of recurrent admissions due to hepatic encephalopathy secondary to alcoholic liver cirrhosis, hyperammonemia, history of 2 OR 30 years back, CKD 3B, diabetes mellitus type 2 for 15 years, heart failure with preserved ejection fraction at 60%, colonoscopy status post polypectomy in 2019, paroxysmal atrial fibrillation, splenomegaly, Patrizia UTI in 02/2024, pneumonia status post intubation in 2018, hypertension and hyperlipidemia who presented to the ER with the chief complaint of dizziness and abdominal pain for the past 4x days. Patient reports that on 02/02 he was helping his son, and was working outside in the sun when he experienced dizziness but did not experience any fall, syncope, confusion. Patient since worsening abdominal distention, and diffuse lower abdominal pain. Reports last bowel movement was on 02/03, says that his abdomen was bloated and therefore he induced vomiting himself denies nausea or vomiting. Denies disorientation and confusion during the past week. Reports compliance to lactulose 30 daily. Patient seen and examined at bedside. CT abdomen pelvis on 02/28/25 showed Extraluminal contrast is seen within the peritoneal space which layers dependently and is also seen non dependently in the anterior abdomen and right abdomen. Free intraperitoneal air. Findings Concerning for visceral perforation. Surgery was consulted immediately and patient underwent emergency laparotomy and found bowel ischemia proximal to the anastomosis, surgeon did not close the abdomen because there could be chances of bowel perforation as it was difficult to identify the viable bowel and scheduled for a 2nd look in 48-72 hour. Family was updated regarding the patient's condition, diagnoses and possible prognosis. family meeting was done with the patient's , sons and daughter and they agreed to change the code status to DNR. Patient is maxed on 4 pressor to maintain blood pressure and right now on mechanical ventilation FiO2 45%, tidal volume 500 mL, peep 5 and respiratory rate 24. Objective vital signs Vital Sign Date Time Temp Pulse Resp B/P (MAP) Pulse Ox O2 Delivery O2 Flow Rate FiO2 02/28/25 17:57 26 89 Mechanical Ventilator+ 60 60 02/28/25 17:57 56 02/28/25 16:04 106/16 (46) 02/28/25 12:00 96.4 96.4 Total Intake and Output 02/27/25 02/27/25 02/28/25 15:00 23:00 07:00 Intake Total 590.510 ml 327.251 ml 627.25 ml Output Total 2652 ml 1800 ml Balance 590.510 ml -2324.749 ml -1172.75 ml medications Current Medications Medications Dose Ordered Sig/Tanya Route Start Time Stop Time Status Last Admin Dose Admin Amino Acids 0 ml @ 0 mls/hr PER PHARMACY IV 02/15/25 14:00 Pantoprazole Sodium 40 mg BID IV 02/18/25 09:45 02/28/25 10:14 40 MG Vasopressin 20 units/Sodium Chloride 100 ml @ 9 mls/hr [id number] IV 02/19/25 01:15 02/28/25 06:07 9 MLS/HR Midazolam HCl 50 ml @ 1 mls/hr Q24H IV 02/19/25 08:30 02/26/25 01:17 7 MLS/HR Vancomycin HCl 0 ml @ 0 mls/hr UD IV 02/19/25 16:15 Insulin Glargine 20 units QAM SC 02/21/25 07:00 02/28/25 06:13 20 UNITS Phenylephrine HCl 80 mg/Sodium Chloride 250 ml @ 7.5 mls/hr Q24H IV 02/20/25 18:00 02/27/25 23:30 7.5 MLS/HR Acetaminophen 650 mg Q6HP PRN CA 02/21/25 04:15 02/26/25 17:33 650 MG Micafungin Sodium 100 mg/Sodium Chloride 100 ml @ 100 mls/hr DAILY IV 02/21/25 10:00 02/28/25 10:14 100 MLS/HR Diagnostic Test (Pha) 1 strip Q6HR 02/21/25 12:00 02/28/25 12:20 1 STRIP Insulin Human Regular FOLLOW SLIDING SCALE Q6HR SC 02/21/25 12:00 02/28/25 00:17 2 UNITS Dextrose 50 ml UD IV 02/21/25 12:00 Propofol 100 ml @ 3.345 mls/ hr Q24H IV 02/25/25 09:00 02/26/25 22:43 3.345 MLS/HR Vancomycin HCl 150 ml @ 150 mls/hr Q24H IV 02/26/25 15:00 02/27/25 15:00 150 MLS/HR Norepinephrine Bitartrate 32 mg/ Sodium Chloride 250 ml @ 0.469 mls/ hr Q24H IV 02/27/25 07:45 02/28/25 12:44 14.063 MLS/HR Fat Emulsion Intravenous 150 ml/Sodium Acetate 40 meq/Magnesium Sulfate 10 meq/ Multivitamins 10 ml/Insulin Human Regular 15 units/ Amino Acids/ Dextrose 1,032.65 ml @ 43 mls/hr Q24H1M IV 02/27/25 22:00 02/28/25 21:59 02/27/25 22:26 43 MLS/HR Epinephrine HCl 250 ml @ 7.5 mls/hr Q24H IV 02/28/25 01:15 02/28/25 01:35 7.5 MLS/HR Fat Emulsion Intravenous 200 ml/Magnesium Sulfate 8 meq/ Multivitamins 10 ml/Insulin Human Regular 10 units/ Amino Acids/ Dextrose 1,112.1 ml @ 46 mls/hr [id number] IV 02/28/25 22:00 03/01/25 21:59 Meropenem 50 ml @ 17 mls/hr Q12H IV 02/28/25 22:00 Sodium Bicarbonate 150 ml/Dextrose 1,150 ml @ 100 mls/hr [id number] IV 02/28/25 15:45 Examination Physical exam: General: RASS -3, afebrile, mucosae are moist Cardiovascular: Normal S1 and S2. No murmurs, gallops or rubs Respiratory: Mechanically assisted ventilation, equal bilateral airway entree. Bilateral crackles Abdomen: Distended, tense, open abdominal wound is covered with dressing, 2 LISA drain around 550 mL bloody fluid. MSK/skin: Mobilization of limbs cannot be evaluated. Skin is dry and warm. Bilateral edema +. Neurological: Orientation cannot be assessed. No apparent motor no sensitive deficits. Pupils are isocoric and reactive laboratory and microbiology Laboratory Tests 02/28/25 03:18 Test 02/28/25 03:18 Range/Units Serum Glucose 115 H 74-106 mg/dL Microbiology Date/Time Source Procedure Growth Status 02/27/25 13:08 Abdomen Gram Stain - Final Resulted 02/27/25 13:08 Abdomen Wound Culture - Preliminary Resulted 02/21/25 16:10 Voided Urine Urine Culture - Final Complete 02/21/25 15:00 Blood Blood Culture - Final NO GROWTH AFTER 5 DAYS OF INCUBATION. Complete 02/21/25 11:45 Sputum Gram Stain - Final Complete 02/21/25 11:45 Sputum Respiratory Culture - Final Complete Labs and/or images reviewed: Labs reviewed by me, Image(s) reviewed by me Problem List/Assessment/Plan Problem List/Assessment/Plan Assessment and plan: NEURO: Acute metabolic encephalopathy Hyperammonemia On mechanical ventilation RASS score: -3 CARDIOVASCULAR: Possible acute on chronic diastolic heart failure Paroxysmal atrial fibrillation with secondary hypercoagulable state, on amiodarone drip - Echo on 02/19 revealed lvef 65% .moderate LVH ,septal hypertrophy, normal RV function, RV enlarged mild left atrium enlarged - Blood culture is positive for fungus - Echo on 02/22/25 showed EF 70% and no valve abnormalities noted. PULMONARY: Acute hypoxic respiratory failure, status post mechanical ventilation GASTROINTESTINAL: Bowel perforation likely due to bowel ischemia, status post relaparotomy Possible Ileus/SBO SBO likely due to adhesion from previous surgery appendectomy Possible mesenteric vein thrombosis S/P exploratory laparotomy , small bowel resection with end to end anastomosis and LISA drain Alcoholic liver cirrhosis Lactic acidosis secondary to cirrhosis and bowel ischemia Hepatic encephalopathy Hyperbilirubinemia and transaminitis due to cirrhosis Hyperammonemia likely due to cirrhosis -CT abdomen pelvis on 02/28/25 showed Extraluminal contrast is seen within the peritoneal space which layers dependently and is also seen non dependently in the anterior abdomen and right abdomen. Free intraperitoneal air. Findings Concerning for visceral perforation. Surgery was consulted immediately and patient underwent emergency laparotomy and found bowel ischemia proximal to the anastomosis, surgeon did not close the abdomen because there could be chances of bowel perforation as it was difficult to identify the viable bowel and scheduled for a 2nd look in 48-72 hour. - CT abdomen pelvis on 02/15 demonstrated Contrast from the previous small bowel series is primarily within the small bowel but does extend into the colon up to the splenic flexure. The distal small bowel loops are relatively nondilated. There is mesenteric edema and stranding as well as small bowel wall thickening. These findings are suggestive of at least a partial small bowel obstruction. Cirrhotic Morphology liver with sequela portal hypertension including extensive perisplenic varices. Small amount of ascites fluid which may be secondary to the underlying cirrhosis and/or small bowel obstruction. - Gastrografin small bowel series on 02/14/25 showed Contrast only noted in the stomach none in the small bowel. Persistent gaseous distention of the small bowel. - S/P exploratory laparotomy with small-bowel resection and anastomosis, day 8 - Ammonia dropped down to 37 and bilirubin is trending down - Ordered Gastrografin small bowel series today GENITOURINARY: Acute kidney injury, likely hemodynamic mediated etiology and possible ATN requiring hemodialysis Acute complicated cystitis Uremic encephalopathy Rule out urinary obstruction Anion gap metabolic acidosis likely due to lactic acidosis and kidney impairment - Patient underwent HD on 02/22 and 2.3L ultrafiltration removed - U/O after surgery was 15 ml and scheduled for hemodialysis tomorrow. - Urine output is progressively improved , Nephrology recommended to remove left IJ Darrick catheter and catheter tip was sent for culture - Discontinued IV albumin as patient seems volume overloaded. - Discontinued dopamine drip because of increased heart rate. - Patient is on IV vancomycin as per pharmacy, IV meropenem 500 mg q.12 hours and IV micafungin 100 mg daily. ENDOCRINE: Type 2 diabetes mellitus, hemoglobin A1c 7.2 on 01/30 - Moderate sliding scale of insulin - Lantus 20 unit at [facility] METABOLIC: Morbid obesity, BMI 38 kg / m2 Severe protein calorie malnutrition, albumin 1.6 HEME: Thrombocytopenia and coagulopathy likely due to cirrhosis Bilateral SVT of cephalic vein in upper arm INFECTIOUS DISEASE: Sepsis with septic shock secondary to bowel ischemia likely due to SBO versus mesenteric vein thrombosis Lactic acidosis secondary to cirrhosis and bowel ischemia - Blood culture demonstrated budding yeast and culture from abdominal abscess showed Enterococcus - blood culture showed no growth in 24 hours of incubation and urine culture demonstrated yeast - Patient is on IV vancomycin as per pharmacy, IV meropenem 500 mg q.12 hours and IV micafungin 100 mg daily. DIET: NPO, TPN per pharmacy DVT prophylax: SCD GI prophylaxis: Protonix Bowel regimen: Code status: DNR LINES/DRAINS/ACCESS: ETT: Intubated on 02/18/25 IV access: Right femoral central line with triple-lumen placed on 0 02/21/25. Drips: Norepinephrine, Vasopresin, epinephrine, phenylephrine, Amio, propofol, Versed, fentanyl Lopez catheter: placed on 02/21/25 DISPOSITION: ICU Patient's status discussed with Daughter, care provider time spent more than 81 minutes, including patient care, chart review, and updating the family. Excluding any procedures. Case discussed with Dr. Vasquez Plan discussed with: Spouse, Daughter, Son, Other My Orders My Orders Orders - FEDERICO CLARKE Procedure Category Date Status Time Chest Portable XY 02/28/25 Resulted 04:00 Abg W/ Co-Ox RT 02/28/25 Logged 04:00 Dietary Evaluation Review Comments: 1) Advance to CCHO 60gm + Renal specific 60gm as medically feasible 2) Refer to CDE on DC 3) Continue current plan of care Expected Outcomes/Goals: To meet 75% estimated needs fu 2-3 days Date of Service: February 28, 2025 Billing Provider: WISAM VASQUEZ MD Common Visit Codes: 37663-CLPIFOGJ CARE 30-74 MIN, 02254-[id number] CARE-EACH +30MIN FEDERICO CLARKE February 28, 2025 19:20 WISAM VASQUEZ MD Mar 04, 2025 11:26
[2025-02-28] MEDS ORDERED: MEROPENEM 500MG IVPB 50 ML IV SCH (22:00)
[2025-02-28] MEDS ORDERED: TPN PER PHARMACY IV NR (22:00)
--- NOTE | 2025-03-01 07:12 | DVHDS2 ---
Summary Date of Admission February 05, 2025 at 22:04 Date and Time of Expiration: February 28, 2025 20:12 Reason for Admission: Acute abdominal pain Acute renal failure with hyperkalemia Diabetes mellitus Mild transaminitis Wounds: Surgical wound was present. Labs/Diagnostic Data: Laboratory Results Test 02/28/25 16:45 02/28/25 11:41 02/28/25 06:17 02/28/25 03:18 POC Glucose 95 mg/dl (70-106) Random Vancomycin Level 17.5 ug/mL (5-10) Blood Gas Specimen Type Arterial Blood Gas Sample Site Arterial line Blood Gas Patient Temperature 37.0 Arterial Blood Date Drawn [id number] Arterial Blood pH 7.143 (7.350-7.450) Arterial Blood Partial Pressure CO2 34.1 mmHg (35.0-48.0) Arterial Blood Partial Pressure O2 83.6 mmHg (83.0-108.0) Arterial Blood HCO3 11.4 mmol/L (21.0-28.0) Arterial Blood Oxygen Saturation 91.2 % (94.0-98.0) Arterial Blood Base Excess -16.4 mmol/L (-2.0-3.0) Arterial Blood Oxyhemoglobin 90.5 % (94.0-98.0) Arterial Blood Carboxyhemoglobin 0.4 % (0.5-1.5) Arterial Blood Methemoglobin 0.4 % (0.0-1.5) Charan Test N/a Blood Gas Total Hemoglobin 11.70 g/dL (13.5-17.5) Blood Gas Set Respiration Rate 24.0 Blood Gas Modality Vent - ac FiO2 % 45.0 Blood Gas Tidal Volume 500.0 Blood Gas PEEP or CPAP 5.0 Blood Gas Critical Value Read Back Yes Blood Gas Notified Whom ceci Ness Blood Gas Notified Time [id number] Blood Gas Notified By [facility] Rn margie mcnamara White Blood Count 9.9 10^3/uL (4.4-10.8) Red Blood Count 3.75 10^6/uL (4.5-5.90) Hemoglobin 11.7 g/dL (13.5-17.5) Hematocrit 36.4 % (41.0-53.0) Mean Corpuscular Volume 97.1 fL (80.0-100.0) Mean Corpuscular Hemoglobin 31.3 pg (28.0-32.0) Mean Corpuscular Hemoglobin Concent 32.3 g/dL (32.0-36.0) Red Cell Distribution Width 24.4 % (11.8-14.3) Platelet Count 337 10^3/uL (140-450) Mean Platelet Volume 10.8 fL (6.9-10.8) Neutrophils (%) (Auto) 87.2 % (37.0-80.0) Lymphocytes (%) (Auto) 4.4 % (10.0-50.0) Monocytes (%) (Auto) 6.1 % (0.0-12.0) Eosinophils (%) (Auto) 1.9 % (0.0-7.0) Basophils (%) (Auto) 0.4 % (0.0-2.0) Neutrophils # (Auto) 8.7 10 ^3/uL (1.6-8.6) Lymphocytes # (Auto) 0.4 10 ^3/uL (0.4-5.4) Monocytes # (Auto) 0.6 10 ^3/uL (0-1.3) Eosinophils # (Auto) 0.2 10 ^3/uL (0-0.8) Basophils # (Auto) 0 10 ^3/uL (0-0.2) Differential Total Cells Counted 100.0 (100) Neutrophils % (Manual) 68 (37.0-80.0) Band Neutrophils % (Manual) 9 Lymphocytes % (Manual) 17 (10.0-50.0) Monocytes % (Manual) 3 (0-12) Eosinophils % (Manual) 0 (0-7) Basophils % (Manual) 0 (0.0-2.0) Metamyelocytes % (manual) 3 Myelocytes % (Manual) 0 Promyelocytes % (Manual) 0 Blast Cells % (Manual) 0 Nucleated Red Blood Cells % Reactive Lymphocytes 0 Platelet Estimate Adequate Anisocytosis (manual) Slight Prothrombin Time 17.7 sec (9.3-11.8) Prothrombin Time INR 1.77 (0.9-1.15) Activated Partial Thromboplast Time 45.2 SEC (24.5-34.5) Sodium Level 144 mmol/L (136-145) Potassium Level 4.5 mmol/L (3.5-5.1) Chloride Level 110 mmol/L (98-107) Carbon Dioxide Level 16 mmol/L (20-31) Anion Gap 18 (5-15) Blood Urea Nitrogen 134 mg/dL (9-23) Creatinine 3.10 mg/dL (0.700-1.30) Glomerular Filtration Rate Calc 21 mL/min (>90) BUN/Creatinine Ratio 43.2 (10.0-20.0) Serum Glucose 115 mg/dL (74-106) Calcium Level 8.1 mg/dL (8.7-10.4) Phosphorus Level 6.5 mg/dL (2.4-5.1) Magnesium Level 2.3 mg/dL (1.6-2.6) Total Bilirubin 12.9 mg/dL (0.2-1.0) Aspartate Amino Transferase (AST) 220 U/L (13-40) Alanine Aminotransferase (ALT) 87 U/L (7-40) Alkaline Phosphatase 147 U/L (46-116) Total Protein 4.6 g/dL (5.7-8.2) Albumin 1.6 g/dL (3.2-4.8) Triglycerides Level 201 mg/dL (< 150) Test 02/28/25 02:00 02/27/25 08:09 02/26/25 03:30 02/25/25 08:05 Lactic Acid Level 7.3 mmol/L (0.4-2.0) Urine Color Yellow (Yellow) Urine Clarity Clear (Clear) Urine pH 5.0 (5.0-9.0) Urine Specific [place] 1.009 (1.001-1.035) Urine Protein Negative (Negative) Urine Ketones Negative (Negative) Urine Blood Trace /uL (Negative) Urine Nitrite Negative (Negative) Urine Bilirubin 1+ (Negative) Urine Urobilinogen Normal mg/dL (Negative) Urine Leukocyte Esterase Trace /uL (Negative) Urine RBC 5 /hpf (0 - 3) Urine Microscopic WBC 9 /HPF (0-3) Urine Squamous Epithelial Cells None seen /hpf (<5) Urine Bacteria Few /hpf (None Seen) Urine Mucus Few (None Seen) Urine Glucose Normal mg/dL (Normal) Ammonia 37 umol/L (11-32) Blood Gas Spontaneous Rate 27 Test 02/25/25 03:09 02/24/25 03:15 02/23/25 07:33 02/19/25 10:28 Macrocytosis Slight Tear Drop Cells Few Polychromasia Slight Blood Gas Liter Flow 8.00 Urine Yeast (Budding) Many /hpf (None Seen) Urine Creatinine 114.42 mg/dL (30.0-125.0) Urine Protein/Creatinine Ratio 1.10 Urine Sodium < 10 mmol/L (40-220) Urine Total Protein 126.2 mg/dL (1-14) Test 02/18/25 05:11 02/17/25 01:30 02/16/25 04:51 02/07/25 01:30 Cholesterol Level < 50.0 mg/dL (< 200) LDL Cholesterol 5 mg/dL (< 100) HDL Cholesterol < 5 mg/dL (40-59) Thyroid Stimulating Hormone (TSH) 1.63 uIU/mL (0.55-4.78) Stool Occult Blood Positive (Negative) Stool Occult Blood Sample #3 (Negative) Lipase 85 U/L (12-53) Hepatitis B Surface Antigen Negative (Negative) Urine Hyaline Casts Few /lpf (0 - 2) Test 02/06/25 10:05 02/06/25 03:00 02/05/25 16:22 Specimen Drawn By Oniel richard Troponin I High Sensitivity 54 ng/L (</=54) B-Type Natriuretic Peptide 162.33 pg/mL (0-100) Other Laboratory Tests 02/28/25 03:18 Brief Hx & Hospital Course: This is a 69-year-old male patient with past medical history of recurrent admissions due to hepatic encephalopathy secondary to alcoholic liver cirrhosis, hyperammonemia, history of 2 MT 30 years back, CKD 3B, diabetes mellitus type 2 for 15 years, heart failure with preserved ejection fraction at 60%, colonoscopy status post polypectomy in 2018, paroxysmal atrial fibrillation, splenomegaly, Patrizia UTI in 02/2024, pneumonia status post intubation in 2018, hypertension and hyperlipidemia who presented to the ER with the chief complaint of dizziness and abdominal pain for the past 4x days. Patient reports that on 02/02 he was helping his son, and was working outside in the sun when he experienced dizziness but did not experience any fall, syncope, confusion. Patient since worsening abdominal distention, and diffuse lower abdominal pain. Reports last bowel movement was on 02/03, says that his abdomen was bloated and therefore he induced vomiting himself denies nausea or vomiting. Denies disorientation and confusion during the past week. Reports compliance to lactulose 30 daily. Patient is A&O x4, alert and oriented to name, place, time and situation. Last drink was 1996. On arrival to the ER, patient was vitally stable, WBC increased from 16-19, platelets 123 which is chronic. BMP showed sodium 146, now 132, potassium elevated at 5.8, was 4.5 on 02/04. BUN/creatinine went 26/1.7 GFR 42 on 02/04/2025, now 60/4.3, GFR 14. Patient had been anion gap metabolic acidosis. Lactic acid elevated at 2.3. Ammonia level 180, was 78 12/28. Past medical history: recurrent admissions due to hepatic encephalopathy secondary to alcoholic liver cirrhosis, hyperammonemia, history of 2 MT 30 years back, CKD 3B, diabetes mellitus type 2, heart failure with preserved ejection fraction at 60%, colonoscopy status post polypectomy in 2018, paroxysmal atrial fibrillation, splenomegaly, UTI, pneumonia status post intubation in 2017, hypertension and hyperlipidemia Past Surgical History: pneumonia status post intubation in 2018 Family History: None Social history: Lives with family, last drink 1986, denies smoking or illicit drug use Home medications: Lactulose t.i.d., spironolactone 100 mg, Coreg 6.2 5 mg b.i.d. , glipizide, atorvastatin patient recently stopped taking Sildenafil 100 mg, lisinopril 20 mg, Lasix 40 mg, amlodipine 10 mg, Finerenone in 20 mg, fexofenadin Hospital course: Initially Patient was presented with abdominal pain and dizziness. CT abdomen pelvis on 02/15 demonstrated Contrast from the previous small bowel series is primarily within the small bowel but does extend into the colon up to the splenic flexure. The distal small bowel loops are relatively nondilated. There is mesenteric edema and stranding as well as small bowel wall thickening. These findings are suggestive of at least a partial small bowel obstruction. Cirrhotic Morphology liver with sequela portal hypertension including extensive perisplenic varices. Small amount of ascites fluid which may be secondary to the underlying cirrhosis and/or small bowel obstruction. It was treated conservatively for possible partial SBO with NPO, intermittent NG suction, IV fluid and IV antibiotics. Gastrografin small bowel series on 02/14/25 showed Contrast only noted in the stomach none in the small bowel. Persistent gaseous distention of the small bowel. Patient underwent 1st exploratory laparotomy with a small-bowel resection secondary to possible bowel ischemia /mesenteric vein thrombosis. Patient needed few session of inpatient dialysis for JANET secondary to hemodynamically mediated/VMN. Despite adequate medical treatment patient was not responding well and deteriorating. CT abdomen pelvis on 02/28/25 showed Extraluminal contrast is seen within the peritoneal space which layers dependently and is also seen non dependently in the anterior abdomen and right abdomen. Free intraperitoneal air. Findings Concerning for visceral perforation. Surgery was consulted immediately and patient underwent emergency laparotomy and found bowel ischemia proximal to the anastomosis, surgeon did not close the abdomen because there could be chances of bowel perforation as it was difficult to identify the viable bowel and scheduled for a 2nd look in 48-72 hour. Family was updated regarding the patient's condition, diagnoses and possible prognosis. family meeting was done with the patient's , sons and daughter and they agreed to change the code status to DNR. Patient is maxed on 4 pressor to maintain blood pressure and mechanical ventilation FiO2 45%, tidal volume 500 mL, peep 5 and respiratory rate 24. Family decided for terminal weaning and patient on 02/28/2025 at 8:12 p.m. Causes of : 1. Cardiopulmonary arrest 2. Sepsis with septic shock secondary to bowel ischemia 3. 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 S/P exploratory laparotomy , small bowel resection with end to end anastomosis and LISA drain Alcoholic liver cirrhosis Lactic acidosis secondary to cirrhosis and bowel ischemia Hepatic encephalopathy Hyperbilirubinemia and transaminitis due to cirrhosis Hyperammonemia likely due to cirrhosis Acute kidney injury, likely hemodynamic mediated etiology and possible ATN requiring hemodialysis Acute complicated cystitis Uremic encephalopathy Ruled out urinary obstruction Anion gap metabolic acidosis likely due to lactic acidosis and kidney impairment Type 2 diabetes mellitus, hemoglobin A1c 7.2 on 01/30 Morbid obesity, BMI 38 kg / m2 Severe protein calorie malnutrition, albumin 1.6 Thrombocytopenia and coagulopathy likely due to cirrhosis Bilateral SVT of cephalic vein in upper arm Sepsis with septic shock secondary to bowel ischemia likely due to SBO versus mesenteric vein thrombosis Lactic acidosis secondary to cirrhosis and bowel ischemia Consults/Reason for consult Nephrology and Surgery were consulted. Operations or Procedures COMPARISON: CT CT AB PEL WO CON-NO ORAL OR IV on DOS: 02/15/25, FINDINGS: Lower Thorax: Normal-sized heart. At least mild calcified coronary artery disease. Moderate dependent consolidations of the bilateral lower lobes. Liver and Biliary system: Small cirrhotic liver. Streak artifact through the liver limits evaluation of the parenchyma. No definite hepatic lesion. There is intermediate density layering in the gallbladder. No biliary ductal dilatation. There are portosystemic collateral vessels. Spleen: Mild splenomegaly. Adrenal Glands and Kidneys: Normal adrenal glands. There is excreted contrast in the bilateral renal collecting systems. There is no hydronephrosis or nephrolithiasis. There is nonspecific bilateral perinephric stranding. Pancreas and Retroperitoneum: Mild pancreatic atrophy. No definite retroperitoneal lymphadenopathy. Aorta and Major Vessels: Aortoiliac vessels are normal in caliber containing mild calcified atherosclerotic plaque. Bowel, Mesentery and Peritoneal space: There is contrast throughout the small and large bowel loops. Prior appendectomy. There is extraluminal contrast in the peritoneal space layering dependently as well is in the nondependent anterior abdomen and also in the right abdomen. There is also contrast extending through the midline laparotomy incision.. There is wall thickening throughout multiple small bowel loops. There is diffuse wall thickening of the large bowel which is decompressed. There is free intraperitoneal air. There is a small extraluminal fluid and gas collection adjacent to a left mid to lower abdominal small bowel loop which is ill-defined though measures a proximally 5.3 cm on series 2, image 58. There is a right abdominal approach drain with the tip of the drain terminating in the left abdomen in the upper pelvis. Mesenteric venous congestion and mild ascites. Pelvis: The urinary bladder is decompressed about a Lopez catheter. There is no pelvic lymphadenopathy. There is a right femoral central venous catheter which is within the right external iliac vein. Abdominal wall and Osseous Structures: There is body wall edema. There are small fat containing bilateral inguinal hernias. Prior right of midline laparotomy which contains contrast. Multilevel lower thoracic and lumbar spondylosis. IMPRESSION: 1. Extraluminal contrast is seen within the peritoneal space which layers dependently and is also seen non dependently in the anterior abdomen and right abdomen. Free intraperitoneal air. Findings Concerning for visceral perforation. Correlate with any possible recent surgery. 2. Possible explanation for the nondependent contrast is a developing abscess given that it is nondependent. 3. A small extraluminal fluid and gas collection which is ill-defined next to small bowel loops in the left mid to lower abdomen likely a developing abscess. 4. Circumferential wall thickening throughout small and large bowel loops which could be infectious or inflammatory enterocolitis. 5. Cirrhosis and portal hypertension with portosystemic collateral vessels, mild splenomegaly, and ascites. 6. Dependent moderate bilateral lower lobe consolidations which could be atelectasis versus pneumonia. 7. Right abdominal approach surgical drain which terminates in the left pelvis. PREOPERATIVE DIAGNOSES: Rule out bowel obstruction, was found to have small bowel ileus with the possibility of bowel obstruction and causing mesenteric edema and a distal small bowel obstruction secondary to adhesions, but that was not causing the issue. POSTOPERATIVE DIAGNOSES: Rule out bowel obstruction, was found to have small bowel ileus with the possibility of bowel obstruction and causing mesenteric edema and a distal small bowel obstruction secondary to adhesions, but that was not causing the issue. PROCEDURES: * Small bowel resection. * Primary anastomosis x2. * Exploratory laparotomy. * Lysis of adhesions. * Peritoneal irrigation and lavage. * Intestinal decompression to allow the intestinal fluid to go back into the stomach. * Drainage of ascites. SURGEON: Tommie Pena MD. BOX CLOSING MACHINE OPERATOR: None. ANESTHESIA: General. ESTIMATED BLOOD LOSS: Close to 100 mL. DRAINS: One was used. COMPLICATIONS: No complications encountered. DESCRIPTION OF PROCEDURE: The patient was prepped and draped in the usual sterile fashion in the supine position and a vertical midline incision was applied to the right of the umbilicus going supraumbilically, almost to the xiphisternum and to the symphysis pubis below, taken down to the deeper tissues. He was morbidly obese. Surgery was tedious and difficult. The fascia was divided. The abdomen was entered. Ascitic fluid was drained out from all 4 quadrants as well as the pelvis. Approximately 4600 mL of the fluid was removed and then it was realized, there was a bowel segment in the mid portion that was dilated and twisted causing the mesenteric edema, possibly mesenteric thrombosis with developing bowel ischemia. There was a potential for small bowel obstruction in the right lower abdomen from his previous appendectomy surgery, but that was not declaring itself as a bowel obstruction and the procedure was to resect the small bowel that was added potential for ischemia and non-viability and then doing a primary anastomosis after the distal segment of the small bowel also was removed because that also was not very viable, so there were 2 segments of the bowel that were removed and the suture was applied to the distal segment for the first segment and the suture was applied for the distal segment as well. They were submitted for pathology and like I mentioned, a [id number] staple anastomosis was carried out between the proximal and the distal segment. The mesenteric tissue was taken down using the stapling device and LigaSure device and with this being done, the anastomosis being done was reinforced with 3-0 silk suture at the various locations and the flow of the intestine was established proximally to the distal, making sure there was no leakage in the anastomosis. The mesenteric defect was brought together using 2-0 Vicryl suture and thorough irrigation was carried out. The bowel was decompressed and the contents were released back into the abdomen as well. With this being done, thorough irrigation was carried out in all 4 quadrants. Now centrifugal station operator was applied in various locations, especially in the right upper quadrant as well as the right lower quadrant and with this being done, the small bowel was replaced back into the abdomen and with its anatomic location, making sure there was no compromise on the anastomosis segment. With this being done, the sponge count, needle count was reported correct. A size 19 Ang drainage was placed to drain the right paracolic gutter going into the pelvis and allowing the tip of the drain to be placed in the left lower quadrant. The drain itself was then secured with a silk suture and glove change was performed and the fascia was brought together using PDS suture in a continuous running fashion, reinforced with Vicryl suture for the subcutaneous tissues and skin was brought together using a stapling device. Dressing was applied. The patient tolerated the procedure well and was taken back to the [facility] or ICU in a critical condition. The details of the procedure, the rationale for surgery, and the indications of the surgery and the potential for outcomes were explained in detail to all the family members and all questions were answered. Operative Report on 02/28/25 [id number] R/O SBO /PERFORATION/ILEUS/BOWEL ISCHEMIA SEC TO MESENTERIC THROMBOSIS/ADENITIS E LAP BOWEL RESECTION BOWEL PERFORATION PROXIMAL TO INTACT ANASTOMOSIS POSSIBLY SEC TO ISCHEMIC ILEITIS SMALL BOWEL RESECTION OF POSSIBLE ISCHEMIC BOWEL CAUSING PERFORATION SURGEON DR Lesia PENA BOX CLOSING MACHINE OPERATOR DR Rosalia MORRIS EBL 50 CC 2 DRAINS ANASTOMOSIS DEFERRED DUE TO NON RELIABILITY OF ONGOING BOWEL ISCHEMIA SECOND LOOK PLANNED BASED ON ONGOING EVAL FAMILY AND NURSING STAFF AWARE OF FINDINGS Final Diagnosis/Problems List Causes of : 1. Cardiopulmonary arrest 2. Sepsis with septic shock secondary to bowel ischemia 3. 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 S/P exploratory laparotomy , small bowel resection with end to end anastomosis and LISA drain Alcoholic liver cirrhosis Lactic acidosis secondary to cirrhosis and bowel ischemia Hepatic encephalopathy Hyperbilirubinemia and transaminitis due to cirrhosis Hyperammonemia likely due to cirrhosis Acute kidney injury, likely hemodynamic mediated etiology and possible ATN requiring hemodialysis Acute complicated cystitis Uremic encephalopathy Ruled out urinary obstruction Anion gap metabolic acidosis likely due to lactic acidosis and kidney impairment Type 2 diabetes mellitus, hemoglobin A1c 7.2 on 01/30 Morbid obesity, BMI 38 kg / m2 Severe protein calorie malnutrition, albumin 1.6 Thrombocytopenia and coagulopathy likely due to cirrhosis Bilateral SVT of cephalic vein in upper arm Sepsis with septic shock secondary to bowel ischemia likely due to SBO versus mesenteric vein thrombosis Lactic acidosis secondary to cirrhosis and bowel ischemia Discharge Disposition: at [facility] FEDERICO CLARKE RESIDENT March 01, 2025 07:12
== END 2025-02-28 20:12 | DRG 853 ==
LOC: ER 15:26 → OVERFLOW 22:04 → WEST WING 02-06 21:33 → ICU WEST 02-15 14:39 → DOU IN ICU 02-15 20:50 → PACU ICU 02-18 21:30 → ICU WEST 02-18 22:49 → PACU ICU 02-18 23:55 → ICU WEST 02-19 00:44
PROVIDERS: ADMIT Internal Medicine; ATTEND Emergency Medicine
PROC: 02H633Z Insertion of Infusion Device into Right Atrium, Percutaneous Approach (ICD-10-PCS; 2025-02-15)
PROC: 02HV33Z Insertion of Infusion Device into Superior Vena Cava, Percutaneous Approach (ICD-10-PCS; 2025-02-16)
PROC: B548ZZA Ultrasonography of Superior Vena Cava, Guidance (ICD-10-PCS; 2025-02-16)
PROC: 30233K1 Transfusion of Nonautologous Frozen Plasma into Peripheral Vein, Percutaneous Approach (ICD-10-PCS; 2025-02-16)
PROC: 5A1D70Z Performance of Urinary Filtration, Intermittent, Less than 6 Hours Per Day (ICD-10-PCS; 2025-02-16)
PROC: 5A1D70Z Performance of Urinary Filtration, Intermittent, Less than 6 Hours Per Day (ICD-10-PCS; 2025-02-17)
PROC: 0DB80ZZ Excision of Small Intestine, Open Approach (ICD-10-PCS; 2025-02-18)
PROC: 0W9G0ZZ Drainage of Peritoneal Cavity, Open Approach (ICD-10-PCS; 2025-02-18)
PROC: 0DN80ZZ Release Small Intestine, Open Approach (ICD-10-PCS; principal; 2025-02-18 21:39)
PROC: 30233N1 Transfusion of Nonautologous Red Blood Cells into Peripheral Vein, Percutaneous Approach (ICD-10-PCS; 2025-02-19)
PROC: 30233R1 Transfusion of Nonautologous Platelets into Peripheral Vein, Percutaneous Approach (ICD-10-PCS; 2025-02-19)
PROC: 0BH17EZ Insertion of Endotracheal Airway into Trachea, Via Natural or Artificial Opening (ICD-10-PCS; 2025-02-19)
PROC: 5A1955Z Respiratory Ventilation, Greater than 96 Consecutive Hours (ICD-10-PCS; 2025-02-19)
PROC: 5A1D70Z Performance of Urinary Filtration, Intermittent, Less than 6 Hours Per Day (ICD-10-PCS; 2025-02-20)
PROC: 06HY33Z Insertion of Infusion Device into Lower Vein, Percutaneous Approach (ICD-10-PCS; 2025-02-21)
PROC: 5A1D70Z Performance of Urinary Filtration, Intermittent, Less than 6 Hours Per Day (ICD-10-PCS; 2025-02-22)
PROC: 0DNE0ZZ Release Large Intestine, Open Approach (ICD-10-PCS; 2025-02-28)
PROC: 0DBA0ZZ Excision of Jejunum, Open Approach (ICD-10-PCS; 2025-02-28)
PROC: 0W9G0ZZ Drainage of Peritoneal Cavity, Open Approach (ICD-10-PCS; 2025-02-28)
DX: A41.9 Sepsis, unspecified organism (principal); E43 Unspecified severe protein-calorie malnutrition; I50.33 Acute on chronic diastolic (congestive) heart failure; N17.0 Acute kidney failure with tubular necrosis; G93.41 Metabolic encephalopathy; K55.069 Acute infarction of intestine, part and extent unspecified; K55.019 Acute (reversible) ischemia of small intestine, extent unspecified; J96.01 Acute respiratory failure with hypoxia; R65.21 Severe sepsis with septic shock; N18.6 End stage renal disease; K63.1 Perforation of intestine (nontraumatic); G93.49 Other encephalopathy; E87.0 Hyperosmolality and hypernatremia; E72.20 Disorder of urea cycle metabolism, unspecified; D68.4 Acquired coagulation factor deficiency; K56.7 Ileus, unspecified; E87.1 Hypo-osmolality and hyponatremia; E87.20 Acidosis, unspecified; L02.211 Cutaneous abscess of abdominal wall; K56.50 Intestinal adhesions [bands], unspecified as to partial versus complete obstruction; N30.00 Acute cystitis without hematuria; D68.69 Other thrombophilia; I13.2 Hypertensive heart and chronic kidney disease with heart failure and with stage 5 chronic kidney disease, or end stage renal disease; E87.5 Hyperkalemia; E66.01 Morbid (severe) obesity due to excess calories; D69.6 Thrombocytopenia, unspecified; E78.2 Mixed hyperlipidemia; E11.22 Type 2 diabetes mellitus with diabetic chronic kidney disease; K70.31 Alcoholic cirrhosis of liver with ascites; K76.82 Hepatic encephalopathy; N13.9 Obstructive and reflux uropathy, unspecified; I48.0 Paroxysmal atrial fibrillation; R74.01 Elevation of levels of liver transaminase levels; I88.0 Nonspecific mesenteric lymphadenitis; I46.9 Cardiac arrest, cause unspecified; I95.9 Hypotension, unspecified; K21.9 Gastro-esophageal reflux disease without esophagitis; R16.1 Splenomegaly, not elsewhere classified; Z68.38 Body mass index [BMI] 38.0-38.9, adult; Z79.2 Long term (current) use of antibiotics; Z79.899 Other long term (current) drug therapy; Z79.4 Long term (current) use of insulin; Z81.1 Family history of alcohol abuse and dependence; Z80.0 Family history of malignant neoplasm of digestive organs; Z80.8 Family history of malignant neoplasm of other organs or systems; Z82.49 Family history of ischemic heart disease and other diseases of the circulatory system; Z87.01 Personal history of pneumonia (recurrent); I25.2 Old myocardial infarction; Z99.2 Dependence on renal dialysis
CPT/HCPCS: 36415; 36556; 36600; 71045; 74018; 74176; 74250; 76700; 76705; 80048; 80053; 80061; 80202; 81001; 82140; 82270; 82570; 82805; 82948; 82962; 83605; 83690; 83735; 83880; 84100; 84132; 84156; 84300; 84443; 84478; 84484; 85007; 85025; 85027; 85610; 85730; 86850; 86900; 86901; 86920; 87040; 87070; 87075; 87077; 87086; 87088; 87186; 87205; 87340; 90935; 93005; 93306; 93971; 94002; 94003; 94640; 94644; 96365; 96375; 96376; 99291; G0378; J0171; J0690; J1642; J1815; J2003; J2185; J2248; J2405; J2470; J2704; J3430; J3490; J7042; J7060; J7131; P9047